=== PATIENT | male | born 1955 | race Caucasian/White ===

== ENCOUNTER 2016-12-22 07:02 | Inpatient (IN) | payer OTHER ==
[2016-12-22 07:36] VITALS: BMI 28.8
--- NOTE | 2016-12-22 08:30 | PDOC ---
History of Present Illness - General History Source: Patient, Old Records Exam Limitations: No Limitations <Morelos,Shana - Last Filed: 12/22/16 08:39> - History of Present Illness Initial Comments: 12/22/16 08:37 - General History Source: Patient, Old Records Exam Limitations: No Limitations - History of Present Illness Initial Comments: 12/22/16 08:35 The patient is a 61-year-old man, accompanied by family, with a past medical history of hypertension, atrial fibrillation (On Xarelto), congestive heart failure, peripheral arterial disease R>L, venous stasis ulcers in his bilateral lower extremities and opioid dependence (on Methadone) who presents to the emergency department for further evaluation of leg pain/wound. Patient states that he was at [facility], approximately 3 weeks ago, for upper respiratory symptoms and was diagnosed with Pneumonia and congestive heart failure. He states that as he left the hospital, he felt symptoms of bilateral leg pain (left greater than right) but ignored it. Over the pats 3 weeks, his has noted that his leg pain has gradually worsen, as he notes that his legs are red and might be infected. His skin has been breaking down on his legs, and he has been developing more venous stasis ulcers which seem to be getting infected. Patient expresses concern for his legs due to his history of peripheral arterial disease and venous stasis ulcers. He denies any associated symptoms of fever and chills. He reports that his respiratory symptoms have cleared up and is currently asymptomatic. He denies chest pain, lightheadedness, dizziness, shortness of breath, neck pain , headache; He denies abdominal pain, nausea, vomiting, diarrhea. He denies fevers or chills. No history of diabetes mellitus. Off note: the patient expresses concern, as he has not had his methadone yet this morning. Allergies: Penicillin Past Surgical History: Cataract surgery (left eye) Social History: Current everyday cigarette smoker. No ETOH use. 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 Trisha Rodas Remainder of the review of systems is negative. <Shana Morelos - Last Filed: 12/22/16 08:36> <Karlene Trimble - Last Filed: 12/23/16 15:40> - General Chief Complaint: Wound Infection Stated Complaint: WOUND INFECTION/LEG Time Seen by Provider: 12/22/16 08:01 Past History <Shana Morelos - Last Filed: 12/22/16 08:39> - Past Medical History Cardiac Disorders: Yes (CHF) COPD: Yes HTN: Yes - Psycho/Social/Smoking Cessation Hx Suicidal Ideation: No Smoking History: Current every day smoker Number of Cigarettes Smoked Daily: 10 Information on smoking cessation initiated: No <Karlene Trimble - Last Filed: 12/23/16 15:40> - Past Medical History Allergies/Adverse Reactions: Allergies Allergy/AdvReac Type Severity Reaction Status Date / Time Penicillins Allergy Verified 12/22/16 07:27 Home Medications: Ambulatory Orders Aspirin [ASA -] 81 mg PO DAILY 12/22/16 Digoxin [Lanoxin -] 0.25 mg PO DAILY 12/22/16 Diltiazem Cd [Cardizem Cd -] 180 mg PO BID 12/22/16 Furosemide [Lasix -] 40 mg PO DAILY 12/22/16 Methadone [Dolophine -] 70 mg PO DAILY 12/22/16 Metoprolol Tartrate [Lopressor -] 50 mg PO BID 12/22/16 Rivaroxaban [Xarelto -] 20 mg PO DAILY 12/22/16 Review of Systems - Review of Systems Able to Perform ROS?: Yes Comments:: 12/22/16 08:35 12 point review of systems is as per history of present illness and otherwise negative. <Shana Morelos - Last Filed: 12/22/16 08:39> *Physical Exam - Vital Signs Last Vital Signs Temp Pulse Resp BP Pulse Ox 98.3 F 94 H 18 138/77 95 12/22/16 07:24 12/22/16 07:24 12/22/16 07:24 12/22/16 07:24 12/22/16 07:24 <Shana Morelos - Last Filed: 12/22/16 08:39> - Vital Signs Last Vital Signs Temp Pulse Resp BP Pulse Ox 98.3 F 94 H 18 138/77 95 12/22/16 07:24 12/22/16 07:24 12/22/16 07:24 12/22/16 07:24 12/22/16 07:24 - Physical Exam Comments: 12/22/16 08:49 Physical exam Last Vital Signs Temp Pulse Resp BP Pulse Ox 98.3 F 94 H 18 138/77 95 12/22/16 07:24 12/22/16 07:24 12/22/16 07:24 12/22/16 07:24 12/22/16 07:24 GENERAL: The patient is awake, alert, and fully oriented, and in no apparent distress. HEAD: Normal with no signs of trauma. NECK: Normal range of motion, supple LUNGS: Bibasilar rales, occasional rhonchi HEART: Irregularly irregular rate and rhythm, 110, normal S1 and S2 without murmur, rub or gallop. ABDOMEN: Soft, nontender, EXTREMITIES: There is chronic venous stasis changes on the lower extremities bilaterally On the right lower extremity, there are some ulcers in breakdown, with a small amount of secondary infection There is some drainage There is a barely palpable right dorsalis pedis pulse On the left lower extremity-there are multiple ulcers in breakdown, with secondary infection, and cellulitis up to the knee There are multiple sites of drainage The dorsalis pedis pulse diminished but somewhat palpable on the left NEUROLOGICAL: Cranial nerves II through XII grossly intact. Normal speech, normal gait. PSYCH: Normal mood, normal affect. SKIN: Warm, Dry, <Karlene Trimble - Last Filed: 12/23/16 15:40> ED Treatment Course - LABORATORY CBC & Chemistry Diagram: 12/23/16 05:40 12/23/16 05:40 - RADIOLOGY Radiology Studies Ordered: Category Date Time Status CHEST X-RAY PORTABLE* [RAD] Stat Radiology 12/22/16 08:29 Ordered <Karlene Trimble - Last Filed: 12/23/16 15:40> Medical Decision Making - Medical Decision Making 12/22/16 08:51 Chronic venous insufficiency, peripheral arterial disease, multiple ulcers in breakdown, cellulitis and secondary infection 12/22/16 09:45 Laboratory Results - last 24 hr 12/22/16 12/22/16 12/22/16 08:06 08:06 09:00 WBC 13.5 H RBC 5.01 Hgb 14.7 Hct 45.6 MCV 91.0 MCHC 32.3 RDW 15.9 D Plt Count 273 D MPV 8.6 D INR 1.17 H PTT (Actin FS) 28.5 Sodium 140 Potassium 4.3 Chloride 101 Carbon Dioxide 27 Anion Gap 12 BUN 12 Creatinine 0.7 Creat Clearance w eGFR > 60 Random Glucose 200 H D Calcium 9.5 Total Bilirubin 0.3 AST 17 D ALT 22 Alkaline Phosphatase 139 H B-Natriuretic Peptide 2382.66 H Total Protein 6.9 Albumin 3.1 L D Lactic acid 2.9 EKG Atrial fibrillation with a ventricular response rate 150 (was 90 to 110 when came to ED) There is diffuse anterolateral and inferior inverted T waves and ischemia Patient is pain-free at this time Patient took his diltiazem when he arrived in the emergency department Patient was placed on a court recording monitor Heart rate is now 110 on the monitor, and patient is asymptomatic We'll recheck EKG 12/22/16 10:13 12/22/16 10:45 Heart rate 63 after diltiazem Awaiting repeat EKG 12/22/16 10:48 Chest f-[id number] markings no definite infiltrate 12/22/16 10:54 Atrial fibrillation with a ventricular response of 75 There is again infero-and anterolateral T-wave abnormalities The only old EKG available for comparison was 200812/22/16 10:59 Patient given vancomycin IV initially Lactic acid 2.9 Patient hydrated and will need repeat lactic acid Case and all results discussed with hospitalist-will admit to telemetry 12/22/16 11:36 Would like to give Zosyn, but patient is ALLERGIC to penicillin Would hold off gram-negative coverage until patient is seen by ID-ID consult placed by hospitalist <Karlene Trimble - Last Filed: 12/23/16 15:40> *DC/Admit/Observation/Transfer - Attestations Scribe Attestion: 12/22/16 08:35 Documentation prepared by Shana Morelos, acting as bio medical technician for Karlene Trimble MD. <Shana Morelos - Last Filed: 12/22/16 08:39> - Discharge Dispostion Admit: Yes <Karlene Trimble - Last Filed: 12/23/16 15:40> Diagnosis at time of Disposition: Atrial fibrillation with rapid ventricular response, Skin breakdown Cellulitis Qualifiers: Site of cellulitis of extremity: lower extremity Laterality: unspecified laterality - Referrals
[2016-12-22] MEDS ORDERED: VANCOMYCIN 1,250 MG in DEXTROSE 5%-WATER - 250 ML IVPB ONE (08:47)
[2016-12-22] MEDS ORDERED: METHADONE HCL 10 MG TABLET PO ONE (08:48)
[2016-12-22] MEDS ORDERED: METHADONE HCL 40 MG DISPERSABLE TABLET ONE (08:51)
[2016-12-22] MEDS ORDERED: METHADONE HCL 10 MG TABLET ONE (08:51)
[2016-12-22 08:54] LABS: MCH 29.4 pg (25.7-33.7); MCHC 32.3 g/dl (32.0-35.9); MEAN PLT VOLUME 8.6 fl (7.5-11.1); PLATELET COUNT 273 K/MM3 (134-434); RDW 15.9 % (11.9-15.9); WHITE BLOOD COUNT 13.5 K/mm3 (4.0-10.0)
[2016-12-22 09:20] LABS: ALBUMIN 3.1 g/dl (3.4-5.0); ANION GAP 12 (8-16); BILIRUBIN,TOTAL 0.3 mg/dL (0.2-1.0); CALCIUM 9.5 mg/dL (8.5-10.1); CO2 27 mmol/L (21-32); COCKROFT - GAULT 135.08; CREATININE 0.7 mg/dL (0.7-1.3); GLUCOSE,RANDOM 200 mg/dL (74-106); SGOT/AST 17 U/L (15-37); SGPT/ALT 22 U/L (12-78); TOT PROT 6.9 g/dl (6.4-8.2)
[2016-12-22 09:22] LABS: ALK PHOS 139 U/L (45-117)
[2016-12-22 09:22] LABS: INR 1.17 (0.82-1.09); PROTHROMBIN TIME (PATIENT) 12.9 SEC (9.98-11.88)
[2016-12-22 09:25] LABS: ACTIVATED PTT 28.5 SECONDS (26.9-34.4)
[2016-12-22] MEDS ORDERED: SODIUM CHLORIDE 1,000 ML IV STA (10:15)
[2016-12-22] MEDS ORDERED: dilTIAZem HCL 50 MG/10 ML - 10 ML VIAL IVPUSH ONE (10:22)
[2016-12-22] MEDS ORDERED: dilTIAZem HCL 125 MG/25 ML - 25 ML VIAL ONE (10:23)
--- NOTE | 2016-12-22 11:24 | HP ---
Admitting History and Physical - Primary Care Physician PCP: Trisha Rodas - Admission Chief Complaint: Wheeping lower legs wounds History of Present Illness: HPI: This is a 61 year old male with Afib (on xaralto) CHF, HTN, PAD R>L and venous ulcerations to b/l lower ext, opioid dependence (on methadone for 5 years for heroin). Recently admitted to [facility] 1 month ago with shortness of breath and cough. He noted his legs were swollen when he entered [facility]. Diagnosed with pneumonia, he was found to have heart failure and A fib and developed lower extremity wounds there. When he left [facility] his lower leg wounds were present , but not as bad and was sent home with a cream and some lose gauze packets. He was told at [facility] he has an R femoral artery obstruction, it is unclear if there was any follow up. Over the past 2.5 weeks following discharge he noted his legs worsening to the point where it hurt to walk. He did not come to the hospital because he figured his legs would get better with the cream. When he went to methadone clinic yesterday the physician strongly advised him to come to the hospital. When he arrived he was in A fib with RVR, he had not taken his morning medication (Cardizem 180 BID) yet. He was asymptomatic. ER Course: - Cardizem 10mg IVP given - Vanco x1 Laboratory Tests 12/22/16 12/22/16 12/22/16 08:06 08:06 09:00 INR Lactic Acid 2.924 H* Creatine Kinase 59 Troponin I < 0.02 B-Natriuretic Peptide 2382.66 H Digoxin 0.2821 L 12/22/16 12/22/16 12/22/16 09:00 11:40 11:40 INR 1.17 H Lactic Acid 1.944 Creatine Kinase 45 Troponin I 0.02 B-Natriuretic Peptide Digoxin History Source: Patient Limitations to Obtaining History: No Limitations - Past Medical History Cardiovascular: Yes: AFIB, CHF, HTN Psych: Yes: Depression - Past Surgical History Additional Past Surgical History: R arm/hand ortho surgery - Smoking History Smoking history: Current every day smoker Aproximately how many cigarettes per day: 10 - Alcohol/Substance Use History of Substance Use: reports: Heroin - Social History Usual Living Arrangement: Yes: With Spouse ADL: Independent History of Recent Travel: No Home Medications - Allergies Allergies/Adverse Reactions: Allergies Allergy/AdvReac Type Severity Reaction Status Date / Time Penicillins Allergy Verified 12/22/16 07:27 - Home Medications Home Medications: Ambulatory Orders Aspirin [ASA -] 81 mg PO DAILY 12/22/16 Digoxin [Lanoxin -] 0.25 mg PO DAILY 12/22/16 Diltiazem Cd [Cardizem Cd -] 180 mg PO BID 12/22/16 Furosemide [Lasix -] 40 mg PO DAILY 12/22/16 Methadone [Dolophine -] 70 mg PO DAILY 12/22/16 Metoprolol Tartrate [Lopressor -] 50 mg PO BID 12/22/16 Rivaroxaban [Xarelto -] 20 mg PO DAILY 12/22/16 Review of Systems - Review of Systems Constitutional: reports: No Symptoms Eyes: reports: No Symptoms HENT: reports: No Symptoms Neck: reports: No Symptoms Cardiovascular: reports: No Symptoms Respiratory: reports: No Symptoms Gastrointestinal: reports: No Symptoms Genitourinary: reports: No Symptoms Musculoskeletal: reports: No Symptoms Integumentary: reports: Erythema, Wound (bi lateral lower ext, wheeping, red, tender) Neurological: reports: No Symptoms Endocrine: reports: No Symptoms Hematology/Lymphatic: reports: No Symptoms Psychiatric: reports: No Symptoms Physical Examination Vital Signs: Vital Signs Temperature 98.3 F 12/22/16 07:24 Pulse Rate 87 12/22/16 11:12 Respiratory Rate 18 12/22/16 11:12 Blood Pressure 108/84 12/22/16 11:12 O2 Sat by Pulse Oximetry (%) 97 12/22/16 11:12 Constitutional: Yes: Calm Eyes: Yes: Conjunctiva Clear HENT: Yes: Thrush, Other (poor dentition) Neck: Yes: Supple Cardiovascular: Yes: Pulse Irregular, S1, S2 Respiratory: Yes: Regular, CTA Bilaterally Gastrointestinal: Yes: Normal Bowel Sounds, Soft Renal/: Yes: WNL Edema: Yes Edema: LLE: 2+, RLE: 2+ Peripheral Pulses WNL: No Integumentary: Yes: Venous Stasis Changes Wound/Incision: Yes: Draining, Reddened, Other Neurological: Yes: Alert, Oriented, Cran Nerves II-XII Intact ...Motor Strength: WNL Psychiatric: Yes: Alert, Oriented Imaging - Results Chest X-ray: Report Reviewed (no acute pathology), Image Reviewed EKG: Report Reviewed Problem List - Problems (1) Atrial fibrillation with rapid ventricular response Code(s): I48.91 - UNSPECIFIED ATRIAL FIBRILLATION (2) Cellulitis Code(s): L03.90 - CELLULITIS, UNSPECIFIED (3) Skin breakdown Code(s): L90.9 - ATROPHIC DISORDER OF SKIN, UNSPECIFIED (4) CHF (congestive heart failure) Code(s): I50.9 - HEART FAILURE, UNSPECIFIED (5) PAD (peripheral artery disease) Code(s): I73.9 - PERIPHERAL VASCULAR DISEASE, UNSPECIFIED (6) Methadone dependence Code(s): F11.20 - OPIOID DEPENDENCE, UNCOMPLICATED (7) Substance abuse Code(s): F19.10 - OTHER PSYCHOACTIVE SUBSTANCE ABUSE, UNCOMPLICATED Assessment/Plan Assessment: 61 year old male admitted with bilateral wound cellulitis with weeping and A fib with RVR Plan: 1. A Fib with RVR - Now controlled - Cardizem 180 BID - Metoprool 50 BID - Dig 0.25 daily, subtherapeutic - ASA daily - Xaralto 20 qday - Telemetry monitoring - Cardiology to see pt 2. CHF - Elevated BNP - ECHO ordered - Lasix 40mg BID - Check A1c - Send lipid panel 3. Bilateral LE cellulitis/venous stasis wounds - Vanco/ Zosyn x1 - BC pending - Silvadene and antonio bandage daily - ID consulted for abx approval 4. PAD - CTA ordered eval for flow, no palpable pulses - Vascular seeing 5. Lactic acidemia - Resolved with fluids - Follow blood cultures - UA negative 6. Methadone dependance - Methadone 70mg daily Visit type - Emergency Visit Emergency Visit: Yes ED Registration Date: 12/22/16 Care time: The patient presented to the Emergency Department on the above date and was hospitalized for further evaluation of their emergent condition. - New Patient This patient is new to me today: Yes Date on this admission: 12/22/16 - Critical Care Critical Care patient: No
[2016-12-22] MEDS ORDERED: ASPIRIN COATED 81 MG TABLET.EC PO ONE (11:57)
[2016-12-22] MEDS ORDERED: ASPIRIN 81 MG CHEWABLE TABLETS ONE (11:58)
[2016-12-22 12:14] LABS: TROPONIN I < 0.02 ng/ml (0.00-0.05)
[2016-12-22 12:18] LABS: TROPONIN I 0.02 ng/ml (0.00-0.05)
[2016-12-22 13:03] LABS: URINE APPEARANCE SLCLOUDY; URINE BILIRUBIN NEGATIVE (NEGATIVE); URINE BLOOD NEGATIVE (NEGATIVE); URINE COLOR YELLOW; URINE GLUCOSE (UA) NEGATIVE (NEGATIVE); URINE KETONE NEGATIVE (NEGATIVE); URINE LEUK ESTERASE NEGATIVE (NEGATIVE); URINE NITRITE NEGATIVE (NEGATIVE); URINE PROTEIN NEGATIVE (NEGATIVE); URINE UROBILINOGEN NEGATIVE E.U./dl (0.2-1.0)
--- NOTE | 2016-12-22 13:09 | CONSULT ---
Consult - Past Medical History Cardio/Vascular: Yes: AFIB, CHF Psych: Yes: Depression - Alcohol/Substance Use History of Substance Use: reports: Heroin - Smoking History Smoking history: Current every day smoker Aproximately how many cigarettes per day: 10 - Social History ADL: Independent History of Recent Travel: No Home Medications - Allergies Allergies/Adverse Reactions: Allergies Allergy/AdvReac Type Severity Reaction Status Date / Time Penicillins Allergy Verified 12/22/16 07:27 - Home Medications Home Medications: Ambulatory Orders Aspirin [ASA -] 81 mg PO DAILY 12/22/16 Digoxin [Lanoxin -] 0.25 mg PO DAILY 12/22/16 Diltiazem Cd [Cardizem Cd -] 180 mg PO BID 12/22/16 Furosemide [Lasix -] 40 mg PO DAILY 12/22/16 Methadone [Dolophine -] 70 mg PO DAILY 12/22/16 Metoprolol Tartrate [Lopressor -] 50 mg PO BID 12/22/16 Rivaroxaban [Xarelto -] 20 mg PO DAILY 12/22/16 Physical Exam Vital Signs: Vital Signs Temperature 99.2 F 12/22/16 11:30 Pulse Rate 87 12/22/16 11:12 Respiratory Rate 18 12/22/16 11:12 Blood Pressure 108/84 12/22/16 11:12 O2 Sat by Pulse Oximetry (%) 97 12/22/16 11:12 Assessment/Plan Vascular Surgery The patient is a 61-year-old man, accompanied by family, with a past medical history of hypertension, atrial fibrillation (On Xarelto), congestive heart failure, peripheral arterial disease R>L, venous stasis ulcers in his bilateral lower extremities and opioid dependence (on Methadone) who presents to the emergency department for further evaluation of leg pain/wound. Patient states that he was at [facility], approximately 3 weeks ago, for upper respiratory symptoms and was diagnosed with Pneumonia and congestive heart failure. He states that as he left the hospital, he felt symptoms of bilateral leg pain (left greater than right) but ignored it. Over the pats 3 weeks, his has noted that his leg pain has gradually worsen, as he notes that his legs are red and might be infected. His skin has been breaking down on his legs, and he has been developing more venous stasis ulcers which seem to be getting infected. Patient expresses concern for his legs due to his history of peripheral arterial disease and venous stasis ulcers. He denies any associated symptoms of fever and chills. He reports that his respiratory symptoms have cleared up and is currently asymptomatic. He denies chest pain, lightheadedness, dizziness, shortness of breath, neck pain , headache; He denies abdominal pain, nausea, vomiting, diarrhea. He denies fevers or chills. No history of diabetes mellitus. Off note: the patient expresses concern, as he has not had his methadone yet this morning. Allergies: Penicillin Past Surgical History: Cataract surgery (left eye) Social History: Current everyday cigarette smoker. No ETOH use. 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 Trisha Rodas PE Head - NC/AT lung - CTA Heart - RRR abd - soft,nt,nd ext - Bilateral lower weeping with ulcers. No palpable pulses. A/P Bilateral lower ext ulcers. Pt was told at [facility] that he has vascular disease. Pt has no palpable pulses with ulcers. Will order CTA to check runoff. Cr is normal. Ronnie Cunningham DO
[2016-12-22] MEDS ORDERED: PIPERACILLIN/TAZOB 3.375 GM/50 ML PRE-DOCKED IVPB ONE (14:20)
[2016-12-22] MEDS ORDERED: PIPERACILLIN/TAZOB 3.375 GM 50 ML IVPB ONE (15:06)
[2016-12-22] MEDS: NYSTATIN 500,000 UNITS/5 ML SUSPENSION PO SCH ×2 (18:45→23:25)
--- NOTE | 2016-12-22 20:43 | CONSULT ---
Consult Consult Specialty:: infectious diseases Reason for Consultation:: cellulitits of the legs - History of Present Illness History of Present Illness: This is a 61 year old male with Afib (on xaralto) CHF, HTN, PAD R>L and venous ulcerations to b/l lower ext, opioid dependence patient was recently treated with to [facility] 1 month ago with shortness of breath and cough.At that time patient had swollen and weeping legs. Diagnosed with pneumonia, he was found to have heart failure and A fib and developed lower extremity wounds there. When he left [facility] his lower leg wounds were present, was sent home . He was told at [facility] he has an R femoral artery obstruction,. Over the past 2.5 weeks following discharge he noted his legs worsening to the point where it hurt to walk. patient had gone to [facility] and was told to get admitted to the [facility] for further management and iv abx patient got admitted and to the hospital - History Source History Provided By: Patient, Medical Record Limitations to Obtaining History: Poor Historian - Past Medical History Cardio/Vascular: Yes: AFIB, CHF, HTN Psych: Yes: Depression - Alcohol/Substance Use Hx Alcohol Use: No History of Substance Use: reports: Heroin - Smoking History Smoking history: Current every day smoker Aproximately how many cigarettes per day: 10 - Social History ADL: Independent History of Recent Travel: No Home Medications - Allergies Allergies/Adverse Reactions: Allergies Allergy/AdvReac Type Severity Reaction Status Date / Time Penicillins Allergy Verified 12/22/16 07:27 - Home Medications Home Medications: Ambulatory Orders Aspirin [ASA -] 81 mg PO DAILY 12/22/16 Digoxin [Lanoxin -] 0.25 mg PO DAILY 12/22/16 Diltiazem Cd [Cardizem Cd -] 180 mg PO BID 12/22/16 Furosemide [Lasix -] 40 mg PO DAILY 12/22/16 Methadone [Dolophine -] 70 mg PO DAILY 12/22/16 Metoprolol Tartrate [Lopressor -] 50 mg PO BID 12/22/16 Rivaroxaban [Xarelto -] 20 mg PO DAILY 12/22/16 Review of Systems - Review of Systems Constitutional: reports: Weakness, Other Eyes: reports: No Symptoms HENT: reports: No Symptoms Neck: reports: No Symptoms Cardiovascular: reports: No Symptoms Respiratory: reports: No Symptoms Gastrointestinal: reports: No Symptoms Genitourinary: reports: No Symptoms Musculoskeletal: reports: Muscle Pain, Muscle Cramps, Other Integumentary: reports: Change in Color, Erythema, Lesions, Wound, Other ( weeping) Neurological: reports: Confusion, Other Endocrine: reports: No Symptoms Hematology/Lymphatic: reports: No Symptoms Psychiatric: reports: No Symptoms Physical Exam Vital Signs: Vital Signs Temperature 97.8 F 12/22/16 17:00 Pulse Rate 67 12/22/16 17:00 Respiratory Rate 20 12/22/16 20:31 Blood Pressure 129/75 12/22/16 17:00 O2 Sat by Pulse Oximetry (%) 98 12/22/16 20:31 Constitutional: Yes: No Distress, Calm Eyes: Yes: Conjunctiva Clear HENT: Yes: Atraumatic, Normocephalic Neck: Yes: Supple, Trachea Midline Cardiovascular: Yes: Pulse Irregular, Other Respiratory: Yes: Regular, CTA Bilaterally Gastrointestinal: Yes: Normal Bowel Sounds, Soft Musculoskeletal: Yes: Other Extremities: Yes: Erythema, Other Edema: LLE: 2+, RLE: 2+ Integumentary: Yes: Erythema (bilateral legs,weeping open wounds draianng) Wound/Incision: Yes: Draining, Reddened Neurological: Yes: Alert, Other Psychiatric: Yes: Alert Imaging - Results Chest X-ray: Report Reviewed, Image Reviewed Assessment/Plan - Problems (1) Atrial fibrillation with rapid ventricular response Code(s): I48.91 - UNSPECIFIED ATRIAL FIBRILLATION (2) Cellulitis Code(s): L03.90 - CELLULITIS, UNSPECIFIED Qualifiers: Site of cellulitis of extremity: lower extremity Laterality: unspecified laterality (3) Methadone dependence Code(s): F11.20 - OPIOID DEPENDENCE, UNCOMPLICATED (4) PAD (peripheral artery disease) Code(s): I73.9 - PERIPHERAL VASCULAR DISEASE, UNSPECIFIED (5) Substance abuse Code(s): F19.10 - OTHER PSYCHOACTIVE SUBSTANCE ABUSE, UNCOMPLICATED (6) Diastolic dysfunction Code(s): I51.9 - HEART DISEASE, UNSPECIFIED wound infection plan will start patient on abx vascular evaluation rest continue current mgmt wound care
[2016-12-22] MEDS: SILVER SULFADIAZINE 1% TOP CREAM 50 GM JAR TP SCH (21:05)
[2016-12-22] MEDS: ERTAPENEM SODIUM 1 GM in SODIUM CHLORIDE 50 ML IVPB SCH (23:25)
[2016-12-22] MEDS: METOPROLOL TARTRATE 50 MG TABLET (FP) PO SCH (23:25)
[2016-12-23] MEDS ORDERED: METHADONE HCL 10 MG TABLET ONE (05:40)
[2016-12-23] MEDS ORDERED: METHADONE HCL 40 MG DISPERSABLE TABLET ONE (05:40)
[2016-12-23] MEDS: METHADONE 40 MG, METHADONE 30 MG PO SCH (05:48)
[2016-12-23] MEDS: NYSTATIN 500,000 UNITS/5 ML SUSPENSION PO SCH ×3 (05:48→17:11)
[2016-12-23 08:14] LABS: BASOPHIL 0.4 % (0-2.0); EOSINOPHIL 0.5 % (0-4.5); MCH 29.5 pg (25.7-33.7); MCHC 32.2 g/dl (32.0-35.9); MEAN CELL VOLUME 91.5 fl (80-96); MEAN PLT VOLUME 8.9 fl (7.5-11.1); NEUTROPHILS 77.3 % (42.8-82.8); PLATELET COUNT 270 K/MM3 (134-434); RDW 15.9 % (11.9-15.9); WHITE BLOOD COUNT 13.2 K/mm3 (4.0-10.0)
--- NOTE | 2016-12-23 08:16 | EKG ---
Test Reason : Blood Pressure : / mmHG Vent. Rate : 075 BPM Atrial Rate : 300 BPM P-R Int : 000 ms QRS Dur : 074 ms QT Int : 378 ms P-R-T Axes : 000 061 216 degrees QTc Int : 422 ms ATRIAL FIBRILLATION ABNORMAL ECG WHEN COMPARED WITH ECG OF 22-DEC-2016 09:09, VENT. RATE HAS DECREASED BY 76 BPM Confirmed by CARON SIDDIQI MD ([id number]) on 12/23/2016 8:16:19 AM Referred By: Confirmed By:CARON SIDDIQI MD
--- NOTE | 2016-12-23 08:18 | EKG ---
Test Reason : Blood Pressure : / mmHG Vent. Rate : 151 BPM Atrial Rate : 170 BPM P-R Int : 144 ms QRS Dur : 070 ms QT Int : 234 ms P-R-T Axes : 000 066 215 degrees QTc Int : 370 ms PROBABLE ATRIAL FIBRILLATION WITH RAPID VENTRICULAR RESPONSE ABNORMAL ECG WHEN COMPARED WITH ECG OF 23-APR-2009 08:55, VENT. RATE HAS INCREASED BY 87 BPM ATRIAL FIBRILLATION HAS REPLACED SINUS RHYTHM Confirmed by NEERU RAIN, CARON ([id number]) on 12/23/2016 8:17:53 AM Referred By: Confirmed By:CARON SIDDIQI MD
[2016-12-23 08:59] LABS: ALK PHOS 114 U/L (45-117); ANION GAP 11 (8-16); BILIRUBIN,TOTAL 0.4 mg/dL (0.2-1.0); CALCIUM 9.4 mg/dL (8.5-10.1); CHOLESTEROL 145 mg/dL (50-200); CO2 28 mmol/L (21-32); COCKROFT - GAULT 161.85; CREATININE 0.6 mg/dL (0.7-1.3); GLUCOSE,RANDOM 113 mg/dL (74-106); LDL CHOLESTEROL (ONLY SJRH) 90 mg/dL (5-100); SGOT/AST 30 U/L (15-37); SGPT/ALT 31 U/L (12-78); TOT PROT 6.4 g/dl (6.4-8.2)
[2016-12-23] MEDS: ERTAPENEM SODIUM 1 GM in SODIUM CHLORIDE 50 ML IVPB SCH (09:01)
[2016-12-23] MEDS: VANCOMYCIN 1,250 MG in DEXTROSE 5%-WATER - 250 ML IVPB SCH (09:02)
[2016-12-23] MEDS: METOPROLOL TARTRATE 50 MG TABLET (FP) PO SCH ×2 (09:02→21:19)
[2016-12-23] MEDS: RIVAROXABAN 20 MG TABLET PO SCH (09:02)
[2016-12-23] MEDS: SILVER SULFADIAZINE 1% TOP CREAM 50 GM JAR TP SCH (09:03)
[2016-12-23] MEDS ORDERED: METHADONE HCL 10 MG TABLET PO SCH (10:00)
[2016-12-23] MEDS ORDERED: ASPIRIN 81 MG CHEWABLE TABLETS PO SCH (10:00)
[2016-12-23] MEDS ORDERED: DIGOXIN 0.25 MG TABLET (FP) PO SCH (10:00)
--- NOTE | 2016-12-23 10:08 | CON.CARD ---
Consult Consult Specialty:: Cardiology Referred by:: Hospitalist Medicine Reason for Consultation:: Afib - History of Present Illness Chief Complaint: Weeping leg wounds History of Present Illness: PMD: Trisha Rodas This is a 61 year old male with Afib (on xaralto) CHF, HTN, PAD R>L and venous ulcerations to b/l lower ext, opioid dependence (on methadone for 5 years for heroin). Recently admitted to [facility] 1 month ago with shortness of breath, lower extremity swelling and cough treated for pneumonia, heart failure and A fib and developed lower extremity wounds there. After discharge, he noted his legs swelling worsening to the point where it hurt to walk. When he went to methadone clinic yesterday the physician strongly advised him to come to the hospital. When he arrived he was in A fib with RVR, he had not taken his morning medication (Cardizem 180 BID) yet. He was asymptomatic and denies chest pain, dyspnea, near or true syncope, orthopnea, PND, rate-controlled with Cardizem and started on abx for presumptive overlyng cellulitis. Spontaneous cardioversion with rate-control. - History Source History Provided By: Patient Limitations to Obtaining History: Clinical Condition - Past Medical History Cardio/Vascular: Yes: AFIB, CHF, HTN Psych: Yes: Depression - Alcohol/Substance Use Hx Alcohol Use: No History of Substance Use: reports: Heroin - Smoking History Smoking history: Current every day smoker Aproximately how many cigarettes per day: 10 - Social History ADL: Independent History of Recent Travel: No Home Medications - Allergies Allergies/Adverse Reactions: Allergies Allergy/AdvReac Type Severity Reaction Status Date / Time Penicillins Allergy Verified 12/22/16 07:27 - Home Medications Home Medications: Ambulatory Orders Aspirin [ASA -] 81 mg PO DAILY 12/22/16 Digoxin [Lanoxin -] 0.25 mg PO DAILY 12/22/16 Diltiazem Cd [Cardizem Cd -] 180 mg PO BID 12/22/16 Furosemide [Lasix -] 40 mg PO DAILY 12/22/16 Methadone [Dolophine -] 70 mg PO DAILY 12/22/16 Metoprolol Tartrate [Lopressor -] 50 mg PO BID 12/22/16 Rivaroxaban [Xarelto -] 20 mg PO DAILY 12/22/16 Review of Systems - Review of Systems Cardiovascular: reports: Edema Vital Signs: Vital Signs Temperature 98.2 F 12/23/16 05:00 Pulse Rate 70 12/23/16 09:02 Respiratory Rate 16 12/23/16 05:00 Blood Pressure 118/66 12/23/16 05:00 O2 Sat by Pulse Oximetry (%) 98 12/22/16 20:31 Constitutional: Yes: No Distress, Calm Neck: Yes: Supple Respiratory: Yes: Regular, Diminished Gastrointestinal: Yes: Normal Bowel Sounds Cardiovascular: Yes: Regular Rate and Rhythm, Bradycardia JVD: No Carotid Bruit: No Heart Sounds: Yes: S1, S2 Murmur: Yes: Systolic Murmur, Grade 1 Edema: Yes Edema: LLE: 2+, RLE: 2+ - Other Data Labs, Other Data: CBC, BMP 12/23/16 05:40 12/23/16 05:40 INR, PTT INR 1.17 (0.82-1.09) H 12/22/16 09:00 Troponin, BNP 12/22/16 12/22/16 11:40 11:40 Troponin I Cancelled 0.02 Troponin, BNP 12/22/16 12/22/16 11:40 11:40 Troponin I Cancelled 0.02 EKG: Rapid afib 151 with rate-related changes -> 75 Tele: PAF->SB 40-50s Imaging - Results Chest X-ray: Report Reviewed (NAD) Cat Scan: Report Reviewed (CTA: 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 with reconsitituion at [employer] via epigastric, mod stenosis SFA bilaterally with marked impairment of infrapopliteal flow bilaterally) Problem List - Problems (1) Atrial fibrillation with rapid ventricular response Code(s): I48.91 - UNSPECIFIED ATRIAL FIBRILLATION (2) Cellulitis Code(s): L03.90 - CELLULITIS, UNSPECIFIED Qualifiers: Site of cellulitis of extremity: lower extremity Laterality: unspecified laterality (3) Methadone dependence Code(s): F11.20 - OPIOID DEPENDENCE, UNCOMPLICATED (4) PAD (peripheral artery disease) Code(s): I73.9 - PERIPHERAL VASCULAR DISEASE, UNSPECIFIED (5) Substance abuse Code(s): F19.10 - OTHER PSYCHOACTIVE SUBSTANCE ABUSE, UNCOMPLICATED (6) Diastolic dysfunction Code(s): I51.9 - HEART DISEASE, UNSPECIFIED Assessment/Plan A/P 1. Paroxysmal atrial fibrillation with RVR -> sinus bradycardia on NOAC 2. PAD with bilateral lower ext ulcers and overlying cellulitis. 3. Diastolic dysfunction 4. Opiate dependence 5. Non-compliance P:1. D/c Cardizem CD 180 bid and digoxin 0.25 qd, Continue Xarelto 20 qPM, Lopressor 50 bid, d/c ASA on concomitant NOAC 2. Continue Lasix 40 qd with monitor diuretic response, renal fxn and electrolytes 3. F/u echo to assess LV and valve fxn, TSH 4. Empiric abx course per C&S, wound care 5. Emphasized importance of compliance, thank you for consultative opportunity
--- NOTE | 2016-12-23 10:38 | PN ---
Progress Note (short form) - Note Progress Note: Vascular Surgery CTA reviewed. Pt has distal aorta occlusion, with common and external iliac artery occlusion. Pt will need Aorto-bifemoral bypass to restore circulation. Cardiology eval for clearance measures. Will cont to follow Ronnie Cunningham DO
--- NOTE | 2016-12-23 12:44 | PN ---
Progress Note, Physician History of Present Illness: says he feels good legs actually looking better dressing started - Current Medication List Current Medications: Active Medications Ertapenem 1 gm/ Sodium (Chloride) 50 mls @ 50 mls/hr IVPB DAILY [facility] PRN Reason: Protocol Last Admin: 12/23/16 09:01 Dose: 50 mls/hr Vancomycin HCl 1,250 mg/ (Dextrose) 250 mls @ 250 mls/hr IVPB DAILY [facility] PRN Reason: Protocol Last Admin: 12/23/16 09:02 Dose: 250 mls/hr Methadone HCl 40 mg/ Methadone (HCl 30 mg) 70 mg PO DAILY@0600 [facility] Last Admin: 12/23/16 05:48 Dose: 70 mg Metoprolol Tartrate (Lopressor -) 50 mg PO BID [facility] Last Admin: 12/23/16 09:02 Dose: 50 mg Nystatin (Nystatin Oral Suspension -) 500,000 units PO Q6HPO [facility] Last Admin: 12/23/16 11:56 Dose: 500,000 units Rivaroxaban (Xarelto -) 20 mg PO DAILY [facility] Last Admin: 12/23/16 09:02 Dose: 20 mg Silver Sulfadiazine (Silvadene -) 1 applic TP DAILY [facility] Last Admin: 12/23/16 09:03 Dose: 1 applic - Objective Vital Signs: Vital Signs Temperature 98 F 12/23/16 09:00 Pulse Rate 70 12/23/16 09:02 Respiratory Rate 18 12/23/16 09:00 Blood Pressure 116/62 12/23/16 09:00 O2 Sat by Pulse Oximetry (%) 98 12/22/16 20:31 Constitutional: Yes: No Distress, Calm Cardiovascular: Yes: Pulse Irregular Respiratory: Yes: Regular, CTA Bilaterally Gastrointestinal: Yes: Normal Bowel Sounds, Soft Musculoskeletal: Yes: Other Extremities: Yes: Other Wound/Incision: Yes: Dressing Dry and Intact, Draining Neurological: Yes: Alert, Oriented Psychiatric: Yes: Alert, Oriented Labs: CBC, BMP 12/23/16 05:40 12/23/16 05:40 INR, PTT INR 1.17 (0.82-1.09) H 12/22/16 09:00 Assessment/Plan - Problems (1) Atrial fibrillation with rapid ventricular response Code(s): I48.91 - UNSPECIFIED ATRIAL FIBRILLATION (2) Cellulitis Code(s): L03.90 - CELLULITIS, UNSPECIFIED Qualifiers: Site of cellulitis of extremity: lower extremity Laterality: unspecified laterality (3) Methadone dependence Code(s): F11.20 - OPIOID DEPENDENCE, UNCOMPLICATED (4) PAD (peripheral artery disease) Code(s): I73.9 - PERIPHERAL VASCULAR DISEASE, UNSPECIFIED (5) Substance abuse Code(s): F19.10 - OTHER PSYCHOACTIVE SUBSTANCE ABUSE, UNCOMPLICATED (6) Diastolic dysfunction Code(s): I51.9 - HEART DISEASE, UNSPECIFIED wound infection plan continue abx await for final identification of the organism rest as per primary vascular on case
--- NOTE | 2016-12-23 18:05 | PN ---
Physical Exam: SUBJECTIVE: Patient seen and examined. He says he feels about the same, his legs still hurt. I have informed him about need for surgery to open his RLE obstruction. OBJECTIVE: Vital Signs Period Temp Pulse Resp BP Sys/Chatterjee Pulse Ox Last 24 Hr 97.8 F-98.6 F 54-74 16-20 102-128/44-79 98 PE Neuro: alert, awake, cn 2-12intact Pulm: CTAB CV: s1 s2 rrr Abd: s nt nd + bs Ext: b/l le erythema, open wounds anterior and posterior, dressing in tact Laboratory Results - last 24 hr 12/23/16 12/23/16 12/23/16 05:40 05:40 05:40 WBC 13.2 H RBC 4.51 Hgb 13.3 Hct 41.3 MCV 91.5 MCHC 32.2 RDW 15.9 Plt Count 270 MPV 8.9 Neutrophils % 77.3 Lymphocytes % 13.5 Monocytes % 8.3 Eosinophils % 0.5 Basophils % 0.4 Sodium 141 Potassium 4.6 Chloride 102 Carbon Dioxide 28 Anion Gap 11 BUN 12 Creatinine 0.6 L Creat Clearance w eGFR > 60 Random Glucose 113 H D Hemoglobin A1c % 8.6 H Calcium 9.4 Magnesium 2.0 Total Bilirubin 0.4 D AST 30 D ALT 31 D Alkaline Phosphatase 114 Total Protein 6.4 Albumin 3.0 L Triglycerides 87 Cholesterol 145 Total LDL Cholesterol 90 HDL Cholesterol 45 Current Medications Generic Name Dose Route Start Last Admin Trade Name Freq PRN Reason Stop Dose Admin Ertapenem 1 gm/ Sodium 50 mls @ 50 mls/hr 12/22/16 20:45 12/23/16 09:01 Chloride IVPB 50 mls/hr DAILY [facility] Administration Protocol Vancomycin HCl 1,250 mg/ 250 mls @ 250 mls/hr 12/23/16 10:00 12/23/16 09:02 Dextrose IVPB 250 mls/hr DAILY [facility] Administration Protocol Methadone HCl 40 mg/ Methadone 70 mg 12/23/16 06:00 12/23/16 05:48 HCl 30 mg PO 70 mg DAILY@0600 [facility] Administration Metoprolol Tartrate 50 mg 12/22/16 22:00 12/23/16 09:02 Lopressor - PO 50 mg BID [facility] Administration Nystatin 500,000 units 12/22/16 18:00 12/23/16 17:11 Nystatin Oral Suspension - PO 500,000 units Q6HPO [facility] Administration Rivaroxaban 20 mg 12/23/16 10:00 12/23/16 09:02 Xarelto - PO 20 mg DAILY [facility] Administration Silver Sulfadiazine 1 applic 12/22/16 16:45 12/23/16 09:03 Silvadene - TP 1 applic DAILY [facility] Administration Microbiology 12/22/16 09:00 Blood Culture - Preliminary Blood - Peripheral Venous NO GROWTH OBTAINED AFTER 24 HOURS, INCUBATION TO CONTINUE FOR 4 DAYS. 12/22/16 09:00 Blood Culture - Preliminary Blood - Peripheral Venous Pending Organism Assessment: 61 year old male with newly dx Afib (on xaralto) CHF, HTN, PAD R>L and venous ulcerations to b/l lower ext, opioid dependence (on methadone for 5 years for heroin) admitted with bilateral wound cellulitis with weeping and A fib with RVR. Plan: 1. A Fib with RVR - Self converted SR - Discontinue Cardizem 180 BID, digoxin - Stop ASA - Xaralto 20 qday - Continue Metoprolol 50 BID - F/u TSH level 2. PAD - CTA shows distal aorta occlusion, with common and external iliac artery occlusion - Persantine stress test tomorrow for cardiac clearance - NPO after midnight 3. Bilateral LE cellulitis/venous stasis wounds - Pre berrios x1 BC g+ cocci short chain, follow results - Continue vanco and Ertapenem (day 2) - Silvadene and antonio bandage daily 4. CHF - Likely diastolic - ECHO Normal LV size and fxn, mild MR, TR - Lasix 40mg BID - Lipid panel noted 5. Uncontrolled DM II, newly diagonsed - Start ISS, BGM ACHS - Will need to go home with metformin 6. Lactic acidemia - Resolved; likely due to above underlying infection 7. Methadone dependance - Methadone 70mg daily Problem List - Problems (1) Atrial fibrillation with rapid ventricular response Code(s): I48.91 - UNSPECIFIED ATRIAL FIBRILLATION (2) Cellulitis Code(s): L03.90 - CELLULITIS, UNSPECIFIED Qualifiers: Site of cellulitis of extremity: lower extremity Laterality: unspecified laterality (3) Skin breakdown Code(s): L90.9 - ATROPHIC DISORDER OF SKIN, UNSPECIFIED (4) CHF (congestive heart failure) Code(s): I50.9 - HEART FAILURE, UNSPECIFIED (5) PAD (peripheral artery disease) Code(s): I73.9 - PERIPHERAL VASCULAR DISEASE, UNSPECIFIED (6) Methadone dependence Code(s): F11.20 - OPIOID DEPENDENCE, UNCOMPLICATED (7) Substance abuse Code(s): F19.10 - OTHER PSYCHOACTIVE SUBSTANCE ABUSE, UNCOMPLICATED Visit type - Emergency Visit Emergency Visit: Yes ED Registration Date: 12/22/16 Care time: The patient presented to the Emergency Department on the above date and was hospitalized for further evaluation of their emergent condition. - New Patient This patient is new to me today: No - Critical Care Critical Care patient: No
[2016-12-23] MEDS: INSULIN SLIDING SCALE (NOVOLOG) 1 VIAL SQ SCH (21:19)
[2016-12-24] MEDS: NYSTATIN 500,000 UNITS/5 ML SUSPENSION PO SCH ×4 (00:20→17:03)
[2016-12-24] MEDS ORDERED: METHADONE HCL 40 MG DISPERSABLE TABLET ONE (06:11)
[2016-12-24] MEDS ORDERED: METHADONE HCL 10 MG TABLET ONE (06:11)
[2016-12-24] MEDS: METHADONE 40 MG, METHADONE 30 MG PO SCH (06:14)
[2016-12-24] MEDS: INSULIN SLIDING SCALE (NOVOLOG) 1 VIAL SQ SCH ×4 (06:18→21:19)
[2016-12-24 07:42] LABS: BASOPHIL 0.7 % (0-2.0); EOSINOPHIL 0.9 % (0-4.5); MCH 30.1 pg (25.7-33.7); MCHC 32.7 g/dl (32.0-35.9); MEAN CELL VOLUME 92.1 fl (80-96); NEUTROPHILS 72.1 % (42.8-82.8); PLATELET COUNT 261 K/MM3 (134-434); RDW 15.8 % (11.9-15.9); WHITE BLOOD COUNT 10.9 K/mm3 (4.0-10.0)
[2016-12-24 08:33] LABS: CALCIUM 8.9 mg/dL (8.5-10.1); COCKROFT - GAULT 161.85; CREATININE 0.6 mg/dL (0.7-1.3); THYROID STIMULATING HORMONE 0.48 uIU/ml (0.358-3.74)
[2016-12-24] MEDS ORDERED: DIPYRIDAMOLE STRESS TEST 50 MG in DEXTROSE 5%-WATER - 40 ML IVPB ONE (10:30)
--- NOTE | 2016-12-24 12:08 | PN ---
Progress Note, Physician History of Present Illness: PMD: Trisha Rodas Remains in sinus rhythm, underwent pre-op P-Myoview, results pending. - Current Medication List Current Medications: Active Medications Ertapenem 1 gm/ Sodium (Chloride) 50 mls @ 50 mls/hr IVPB DAILY [facility] PRN Reason: Protocol Last Admin: 12/23/16 09:01 Dose: 50 mls/hr Vancomycin HCl 1,250 mg/ (Dextrose) 250 mls @ 250 mls/hr IVPB DAILY [facility] PRN Reason: Protocol Last Admin: 12/23/16 09:02 Dose: 250 mls/hr Insulin Aspart (Novolog Vial Sliding Scale -) 1 vial SQ ACHS [facility] PRN Reason: Protocol Last Admin: 12/24/16 06:18 Dose: Not Given Methadone HCl 40 mg/ Methadone (HCl 30 mg) 70 mg PO DAILY@0600 [facility] Last Admin: 12/24/16 06:14 Dose: 70 mg Metoprolol Tartrate (Lopressor -) 50 mg PO BID [facility] Last Admin: 12/23/16 21:19 Dose: 50 mg Nystatin (Nystatin Oral Suspension -) 500,000 units PO Q6HPO [facility] Last Admin: 12/24/16 06:14 Dose: 500,000 units Rivaroxaban (Xarelto -) 20 mg PO DAILY [facility] Last Admin: 12/23/16 09:02 Dose: 20 mg Silver Sulfadiazine (Silvadene -) 1 applic TP DAILY [facility] Last Admin: 12/23/16 09:03 Dose: 1 applic - Objective Vital Signs: Vital Signs Temperature 97.9 F 12/24/16 07:56 Pulse Rate 51 L 12/24/16 07:56 Respiratory Rate 20 12/24/16 08:00 Blood Pressure 122/48 12/24/16 07:56 O2 Sat by Pulse Oximetry (%) 92 L 12/24/16 08:00 Constitutional: Yes: No Distress, Calm Neck: Yes: Supple Cardiovascular: Yes: Regular Rate and Rhythm Respiratory: Yes: Regular, CTA Bilaterally Gastrointestinal: Yes: Normal Bowel Sounds, Soft, Abdomen, Obese Edema: Yes Labs: CBC, BMP 12/24/16 05:35 12/24/16 05:35 INR, PTT INR 1.17 (0.82-1.09) H 12/22/16 09:00 Problem List - Problems (1) Atrial fibrillation with rapid ventricular response Code(s): I48.91 - UNSPECIFIED ATRIAL FIBRILLATION (2) Cellulitis Code(s): L03.90 - CELLULITIS, UNSPECIFIED Qualifiers: Site of cellulitis of extremity: lower extremity Laterality: unspecified laterality (3) Methadone dependence Code(s): F11.20 - OPIOID DEPENDENCE, UNCOMPLICATED (4) PAD (peripheral artery disease) Code(s): I73.9 - PERIPHERAL VASCULAR DISEASE, UNSPECIFIED (5) Substance abuse Code(s): F19.10 - OTHER PSYCHOACTIVE SUBSTANCE ABUSE, UNCOMPLICATED (6) Diastolic dysfunction Code(s): I51.9 - HEART DISEASE, UNSPECIFIED (7) Pre-operative cardiovascular examination, high risk surgery Code(s): Z01.810 - ENCOUNTER FOR PREPROCEDURAL CARDIOVASCULAR EXAMINATION Assessment/Plan 12/23/2016 Echo: Normal LV size and fxn, mod MR, mild TR A/P 1. Paroxysmal atrial fibrillation with RVR -> sinus bradycardia off NOAC carole-op 2. PAD with distal aortic occlusion and common and external iliac artery occlusion. Bilateral lower ext ulcers and overlying cellulitis. 3. Diastolic dysfunction 4. Opiate dependence 5. Non-compliance P:1. D/c Xarelto 20 qPM pre-op, should wait 2 days off to safely proceed and resume once post-op hemostasis has been achieved, continue Lopressor 50 bid 2. F/u persantine myoview results with plan for aorto-bifemoral bypass to restore circulation. 3. Empiric abx course per C&S, wound care 4. Further carole-operative recommendations pending risk stratification with persantine myoview
[2016-12-24] MEDS: ERTAPENEM SODIUM 1 GM in SODIUM CHLORIDE 50 ML IVPB SCH (12:09)
[2016-12-24] MEDS: SILVER SULFADIAZINE 1% TOP CREAM 50 GM JAR TP SCH (12:11)
[2016-12-24] MEDS: RIVAROXABAN 20 MG TABLET PO SCH (12:11)
[2016-12-24] MEDS: METOPROLOL TARTRATE 50 MG TABLET (FP) PO SCH ×2 (12:11→21:19)
[2016-12-24] MEDS: VANCOMYCIN 1,250 MG in DEXTROSE 5%-WATER - 250 ML IVPB SCH (12:14)
--- NOTE | 2016-12-24 12:21 | PN ---
Progress Note (short form) - Note Progress Note: Subjective: The patient was seen and examined at the bedside, he just came back from stress test. He has no complaints at this time. Current Medications Generic Name Dose Route Start Last Admin Trade Name Janie PRN Reason Stop Dose Admin Ertapenem 1 gm/ Sodium 50 mls @ 50 mls/hr 12/22/16 20:45 12/23/16 09:01 Chloride IVPB 50 mls/hr DAILY [facility] Administration Protocol Vancomycin HCl 1,250 mg/ 250 mls @ 250 mls/hr 12/23/16 10:00 12/23/16 09:02 Dextrose IVPB 250 mls/hr DAILY [facility] Administration Protocol Insulin Aspart 1 vial 12/23/16 22:00 12/24/16 06:18 Novolog Vial Sliding Scale - SQ Not Given ACHS [facility] Protocol Methadone HCl 40 mg/ Methadone 70 mg 12/23/16 06:00 12/24/16 06:14 HCl 30 mg PO 70 mg DAILY@0600 [facility] Administration Metoprolol Tartrate 50 mg 12/22/16 22:00 12/23/16 21:19 Lopressor - PO 50 mg BID [facility] Administration Nystatin 500,000 units 12/22/16 18:00 12/24/16 06:14 Nystatin Oral Suspension - PO 500,000 units Q6HPO [facility] Administration Rivaroxaban 20 mg 12/23/16 10:00 12/23/16 09:02 Xarelto - PO 20 mg DAILY [facility] Administration Silver Sulfadiazine 1 applic 12/22/16 16:45 12/23/16 09:03 Silvadene - TP 1 applic DAILY [facility] Administration Objective: Vital Signs Period Temp Pulse Resp BP Sys/Chatterjee Pulse Ox Last 24 Hr 97.4 F-98.3 F 51-83 18-20 99-128/44-70 92 Physical Exam: General: NAD, A&Ox3 HEENT: Poor dentition Lungs: CTA bilaterally Heart: RRR, S1S2 Abd: Soft, non-tender, non-distended. Normoactive bowel sounds Ext: B/l lower extremity wounds, erythema, with drainage. + edema bilaterally CBCD WBC 10.9 K/mm3 (4.0-10.0) H 12/24/16 05:35 RBC 4.28 M/mm3 (4.00-5.60) 12/24/16 05:35 Hgb 12.9 GM/dL (11.7-16.9) 12/24/16 05:35 Hct 39.4 % (35.4-49) 12/24/16 05:35 MCV 92.1 fl (80-96) 12/24/16 05:35 MCHC 32.7 g/dl (32.0-35.9) 12/24/16 05:35 RDW 15.8 % (11.9-15.9) 12/24/16 05:35 Plt Count 261 K/MM3 (134-434) 12/24/16 05:35 MPV 9.0 fl (7.5-11.1) 12/24/16 05:35 CMP Sodium 140 mmol/L (136-145) 12/24/16 05:35 Potassium 4.6 mmol/L (3.5-5.1) 12/24/16 05:35 Chloride 102 mmol/L (98-107) 12/24/16 05:35 Carbon Dioxide 29 mmol/L (21-32) 12/24/16 05:35 Anion Gap 9 (8-16) 12/24/16 05:35 BUN 15 mg/dL (7-18) D 12/24/16 05:35 Creatinine 0.6 mg/dL (0.7-1.3) L 12/24/16 05:35 Creat Clearance w eGFR > 60 (>60) 12/23/16 05:40 Random Glucose 133 mg/dL (74-106) H 12/24/16 05:35 Calcium 8.9 mg/dL (8.5-10.1) 12/24/16 05:35 Total Bilirubin 0.4 mg/dL (0.2-1.0) D 12/23/16 05:40 AST 30 U/L (15-37) D 12/23/16 05:40 ALT 31 U/L (12-78) D 12/23/16 05:40 Alkaline Phosphatase 114 U/L (45-117) 12/23/16 05:40 Total Protein 6.4 g/dl (6.4-8.2) 12/23/16 05:40 Albumin 3.0 g/dl (3.4-5.0) L 12/23/16 05:40 CARDIAC ENZYMES Creatine Kinase 45 IU/L (39-308) 12/22/16 11:40 Troponin I 0.02 ng/ml (0.00-0.05) 12/22/16 11:40 Microbiology 12/22/16 09:00 Blood - Peripheral Venous Blood Culture - Preliminary Presumptive Mssa (Pbp2a Neg) Group D Strep Or Entero Coccus Group D Strep Or Entero Coccus#2 12/22/16 09:00 Blood - Peripheral Venous Blood Culture - Preliminary NO GROWTH OBTAINED AFTER 48 HOURS, INCUBATION TO CONTINUE FOR 3 DAYS. Assessment: This is a 61 year old male with PMHx of newly diagnosed a.fib (on Xarelto), CHF, HTN, PAD R>L and venous ulcerations to b/l lower ext, opioid dependence (on methadone for 5 years for heroin) admitted with bilateral wound cellulitis with weeping and A fib with RVR. Plan: 1) Cardiology: A.fib with RVR - Self converted to sinus rhythm - Continue Xarelto - Continue Lopressor - TSH wnl Diastolic dysfunction - ECHO 12/23 with normal LV size and function. RV normal size. Mod MR, mild TR - Lasix 40mg daily 2) VAscular: PAD - CTA with distal aorta occlusion, common and external iliac artery occlusion - F/u stress test today - For aorto-bifemoral bypass to restore circulation once medical clearance - Appreciate vascular surgery consult 3) ID: B/l lower extremity cellulitis/venous stasis wounds - Blood culture with presumptive MSSA - Continue Ertapenem (12/22- ) - Continue Vancomcyin (12/22- ) - Silvadene and Sekou bandage daily - Appreciate ID consult 4) Endocrine: Newly diagnosed DM - BGM ACHS - ISS ACHS 5) Psych: Methadone dependence - Continue Methadone 70mg po daily 6) Dispo: - Requires continued inpatient care CODE STATUS: FULL CODE Visit type - Emergency Visit Emergency Visit: Yes ED Registration Date: 12/22/16 Care time: The patient presented to the Emergency Department on the above date and was hospitalized for further evaluation of their emergent condition. - New Patient This patient is new to me today: Yes Date on this admission: 12/25/16 - Critical Care Critical Care patient: No
--- NOTE | 2016-12-24 13:32 | EKG ---
Test Reason : Blood Pressure : / mmHG Vent. Rate : 067 BPM Atrial Rate : 050 BPM P-R Int : 000 ms QRS Dur : 084 ms QT Int : 410 ms P-R-T Axes : 000 059 234 degrees QTc Int : 433 ms ACCELERATED JUNCTIONAL RHYTHM ABNORMAL ECG Confirmed by MIGUE DALE MD ([id number]) on 12/24/2016 1:31:54 PM Referred By: Karissa GALICIA Confirmed By:MIGUE DALE MD
--- NOTE | 2016-12-24 15:10 | PN ---
Progress Note, Physician History of Present Illness: patient stable no new issues legs improving - Current Medication List Current Medications: Active Medications Furosemide (Lasix -) 40 mg PO DAILY [facility] Ertapenem 1 gm/ Sodium (Chloride) 50 mls @ 50 mls/hr IVPB DAILY [facility] PRN Reason: Protocol Last Admin: 12/24/16 12:09 Dose: 50 mls/hr Vancomycin HCl 1,250 mg/ (Dextrose) 250 mls @ 250 mls/hr IVPB DAILY [facility] PRN Reason: Protocol Last Admin: 12/24/16 12:14 Dose: 250 mls/hr Insulin Aspart (Novolog Vial Sliding Scale -) 1 vial SQ ACHS [facility] PRN Reason: Protocol Last Admin: 12/24/16 12:07 Dose: Not Given Methadone HCl 40 mg/ Methadone (HCl 30 mg) 70 mg PO DAILY@0600 [facility] Last Admin: 12/24/16 06:14 Dose: 70 mg Metoprolol Tartrate (Lopressor -) 50 mg PO BID [facility] Last Admin: 12/24/16 12:11 Dose: 50 mg Nystatin (Nystatin Oral Suspension -) 500,000 units PO Q6HPO [facility] Last Admin: 12/24/16 12:12 Dose: 500,000 units Rivaroxaban (Xarelto -) 20 mg PO DAILY [facility] Silver Sulfadiazine (Silvadene -) 1 applic TP DAILY [facility] Last Admin: 12/24/16 12:11 Dose: 1 applic - Objective Vital Signs: Vital Signs Temperature 98.7 F 12/24/16 14:49 Pulse Rate 53 L 12/24/16 14:49 Respiratory Rate 20 12/24/16 14:49 Blood Pressure 142/65 12/24/16 14:49 O2 Sat by Pulse Oximetry (%) 92 L 12/24/16 08:00 Constitutional: Yes: No Distress, Calm Cardiovascular: Yes: Pulse Irregular Respiratory: Yes: Regular, CTA Bilaterally Gastrointestinal: Yes: Normal Bowel Sounds, Soft Musculoskeletal: Yes: Other Extremities: Yes: Other Integumentary: Yes: Other Wound/Incision: Yes: Dressing Dry and Intact Psychiatric: Yes: Alert, Oriented Labs: CBC, BMP 12/24/16 05:35 12/24/16 05:35 INR, PTT INR 1.17 (0.82-1.09) H 12/22/16 09:00 Assessment/Plan - Problems (1) Atrial fibrillation with rapid ventricular response Code(s): I48.91 - UNSPECIFIED ATRIAL FIBRILLATION (2) Cellulitis Code(s): L03.90 - CELLULITIS, UNSPECIFIED Qualifiers: Site of cellulitis of extremity: lower extremity Laterality: unspecified laterality (3) Methadone dependence Code(s): F11.20 - OPIOID DEPENDENCE, UNCOMPLICATED (4) PAD (peripheral artery disease) Code(s): I73.9 - PERIPHERAL VASCULAR DISEASE, UNSPECIFIED (5) Substance abuse Code(s): F19.10 - OTHER PSYCHOACTIVE SUBSTANCE ABUSE, UNCOMPLICATED (6) Diastolic dysfunction Code(s): I51.9 - HEART DISEASE, UNSPECIFIED wound infection plan blood cx noted await for final identification of the organism once we have that then will decide if we can deescalate ertapenam rest continue as per primary team
--- NOTE | 2016-12-24 16:07 | PN ---
Progress Note (short form) - Note Progress Note: Vascular Surgery Awaiting stress test results. Pt with positive blood cx. If stess is negative, will do surgery once blood cx come back negative. Will be on standby
[2016-12-25] MEDS: NYSTATIN 500,000 UNITS/5 ML SUSPENSION PO SCH ×4 (00:33→17:00)
[2016-12-25] MEDS ORDERED: METHADONE HCL 10 MG TABLET ONE (05:44)
[2016-12-25] MEDS ORDERED: METHADONE HCL 40 MG DISPERSABLE TABLET ONE (05:44)
[2016-12-25] MEDS: METHADONE 40 MG, METHADONE 30 MG PO SCH (05:54)
[2016-12-25] MEDS: INSULIN SLIDING SCALE (NOVOLOG) 1 VIAL SQ SCH ×4 (06:11→22:21)
[2016-12-25 08:12] LABS: MCH 30.2 pg (25.7-33.7); MCHC 33.4 g/dl (32.0-35.9); MEAN CELL VOLUME 90.7 fl (80-96); PLATELET COUNT 239 K/MM3 (134-434); RDW 15.9 % (11.9-15.9); WHITE BLOOD COUNT 9.2 K/mm3 (4.0-10.0)
--- NOTE | 2016-12-25 09:35 | PN ---
Progress Note (short form) - Note Progress Note: Subjective: The patient was seen and examined at the bedside, he just came back from stress test. He has no complaints at this time. Current Medications Generic Name Dose Route Start Last Admin Trade Name Janie PRN Reason Stop Dose Admin Ertapenem 1 gm/ Sodium 50 mls @ 50 mls/hr 12/22/16 20:45 12/23/16 09:01 Chloride IVPB 50 mls/hr DAILY [facility] Administration Protocol Vancomycin HCl 1,250 mg/ 250 mls @ 250 mls/hr 12/23/16 10:00 12/23/16 09:02 Dextrose IVPB 250 mls/hr DAILY [facility] Administration Protocol Insulin Aspart 1 vial 12/23/16 22:00 12/24/16 06:18 Novolog Vial Sliding Scale - SQ Not Given ACHS [facility] Protocol Methadone HCl 40 mg/ Methadone 70 mg 12/23/16 06:00 12/24/16 06:14 HCl 30 mg PO 70 mg DAILY@0600 [facility] Administration Metoprolol Tartrate 50 mg 12/22/16 22:00 12/23/16 21:19 Lopressor - PO 50 mg BID [facility] Administration Nystatin 500,000 units 12/22/16 18:00 12/24/16 06:14 Nystatin Oral Suspension - PO 500,000 units Q6HPO [facility] Administration Rivaroxaban 20 mg 12/23/16 10:00 12/23/16 09:02 Xarelto - PO 20 mg DAILY [facility] Administration Silver Sulfadiazine 1 applic 12/22/16 16:45 12/23/16 09:03 Silvadene - TP 1 applic DAILY [facility] Administration Objective: Vital Signs Period Temp Pulse Resp BP Sys/Chatterjee Pulse Ox Last 24 Hr 97.4 F-98.3 F 51-83 18-20 99-128/44-70 92 Physical Exam: General: NAD, A&Ox3 HEENT: Poor dentition Lungs: CTA bilaterally Heart: RRR, S1S2 Abd: Soft, non-tender, non-distended. Normoactive bowel sounds Ext: B/l lower extremity wounds, erythema, with drainage. + edema bilaterally CBCD WBC 10.9 K/mm3 (4.0-10.0) H 12/24/16 05:35 RBC 4.28 M/mm3 (4.00-5.60) 12/24/16 05:35 Hgb 12.9 GM/dL (11.7-16.9) 12/24/16 05:35 Hct 39.4 % (35.4-49) 12/24/16 05:35 MCV 92.1 fl (80-96) 12/24/16 05:35 MCHC 32.7 g/dl (32.0-35.9) 12/24/16 05:35 RDW 15.8 % (11.9-15.9) 12/24/16 05:35 Plt Count 261 K/MM3 (134-434) 12/24/16 05:35 MPV 9.0 fl (7.5-11.1) 12/24/16 05:35 CMP Sodium 140 mmol/L (136-145) 12/24/16 05:35 Potassium 4.6 mmol/L (3.5-5.1) 12/24/16 05:35 Chloride 102 mmol/L (98-107) 12/24/16 05:35 Carbon Dioxide 29 mmol/L (21-32) 12/24/16 05:35 Anion Gap 9 (8-16) 12/24/16 05:35 BUN 15 mg/dL (7-18) D 12/24/16 05:35 Creatinine 0.6 mg/dL (0.7-1.3) L 12/24/16 05:35 Creat Clearance w eGFR > 60 (>60) 12/23/16 05:40 Random Glucose 133 mg/dL (74-106) H 12/24/16 05:35 Calcium 8.9 mg/dL (8.5-10.1) 12/24/16 05:35 Total Bilirubin 0.4 mg/dL (0.2-1.0) D 12/23/16 05:40 AST 30 U/L (15-37) D 12/23/16 05:40 ALT 31 U/L (12-78) D 12/23/16 05:40 Alkaline Phosphatase 114 U/L (45-117) 12/23/16 05:40 Total Protein 6.4 g/dl (6.4-8.2) 12/23/16 05:40 Albumin 3.0 g/dl (3.4-5.0) L 12/23/16 05:40 CARDIAC ENZYMES Creatine Kinase 45 IU/L (39-308) 12/22/16 11:40 Troponin I 0.02 ng/ml (0.00-0.05) 12/22/16 11:40 Microbiology 12/22/16 09:00 Blood - Peripheral Venous Blood Culture - Preliminary Presumptive Mssa (Pbp2a Neg) Group D Strep Or Entero Coccus Group D Strep Or Entero Coccus#2 12/22/16 09:00 Blood - Peripheral Venous Blood Culture - Preliminary NO GROWTH OBTAINED AFTER 48 HOURS, INCUBATION TO CONTINUE FOR 3 DAYS. Assessment: This is a 61 year old male with PMHx of newly diagnosed a.fib (on Xarelto), CHF, HTN, PAD R>L and venous ulcerations to b/l lower ext, opioid dependence (on methadone for 5 years for heroin) admitted with bilateral wound cellulitis with weeping and A fib with RVR. Plan: 1) Cardiology: A.fib with RVR - Self converted to sinus rhythm - Continue Xarelto - Continue Lopressor - TSH wnl Diastolic dysfunction - ECHO 12/23 with normal LV size and function. RV normal size. Mod MR, mild TR - Lasix 40mg daily - Stress test with small size, mild intensity reversible defect of inferior wall from base to mid consistent with mild ischemia, LVEF 71% - Appreciate cardiology consult 2) Vascular: PAD - CTA with distal aorta occlusion, common and external iliac artery occlusion - For aorto-bifemoral bypass to restore circulation once medical clearance - Appreciate vascular surgery consult 3) ID: B/l lower extremity cellulitis/venous stasis wounds - Blood culture with presumptive MSSA - Continue Ertapenem (12/22- ) - Continue Vancomcyin (12/22- ), vanco trough 1.5 today, recommend increasing vancomyin dose but will defer to ID as it is restricted to ID only - Silvadene and Sekou bandage daily - Appreciate ID consult 4) Endocrine: Newly diagnosed DM - BGM ACHS - ISS ACHS 5) Psych: Methadone dependence - Continue Methadone 70mg po daily 6) Dispo: - Requires continued inpatient care CODE STATUS: FULL CODE Visit type - Emergency Visit Emergency Visit: Yes ED Registration Date: 12/22/16 Care time: The patient presented to the Emergency Department on the above date and was hospitalized for further evaluation of their emergent condition. - New Patient This patient is new to me today: No - Critical Care Critical Care patient: No
[2016-12-25] MEDS: ERTAPENEM SODIUM 1 GM in SODIUM CHLORIDE 50 ML IVPB SCH (09:42)
[2016-12-25] MEDS: METOPROLOL TARTRATE 50 MG TABLET (FP) PO SCH ×2 (09:42→22:25)
[2016-12-25] MEDS: FUROSEMIDE 40 MG TABLET (FP) PO SCH (09:42)
[2016-12-25] MEDS: RIVAROXABAN 20 MG TABLET PO SCH (09:42)
[2016-12-25] MEDS: SILVER SULFADIAZINE 1% TOP CREAM 50 GM JAR TP SCH (09:43)
[2016-12-25] MEDS: VANCOMYCIN 1,250 MG in DEXTROSE 5%-WATER - 250 ML IVPB SCH ×2 (09:46→22:16)
--- NOTE | 2016-12-25 13:54 | PN ---
Progress Note, Physician History of Present Illness: PMD: Trisha Rodas Remains in sinus rhythm with PAC, underwent pre-op P-Myoview showing small mild inferior ischemia with preserved LVEF 71%. He denies exertional chest pain or dyspnea, mostly exertional claudication bilaterally. - Current Medication List Current Medications: Active Medications Furosemide (Lasix -) 40 mg PO DAILY [facility] Last Admin: 12/25/16 09:42 Dose: 40 mg Ertapenem 1 gm/ Sodium (Chloride) 50 mls @ 50 mls/hr IVPB DAILY [facility] PRN Reason: Protocol Last Admin: 12/25/16 09:42 Dose: 50 mls/hr Vancomycin HCl 1,250 mg/ (Dextrose) 250 mls @ 250 mls/hr IVPB DAILY [facility] PRN Reason: Protocol Last Admin: 12/25/16 09:46 Dose: 250 mls/hr Insulin Aspart (Novolog Vial Sliding Scale -) 1 vial SQ ACHS [facility] PRN Reason: Protocol Last Admin: 12/25/16 11:59 Dose: Not Given Methadone HCl 40 mg/ Methadone (HCl 30 mg) 70 mg PO DAILY@0600 [facility] Last Admin: 12/25/16 05:54 Dose: 70 mg Metoprolol Tartrate (Lopressor -) 50 mg PO BID [facility] Last Admin: 12/25/16 09:42 Dose: 50 mg Nystatin (Nystatin Oral Suspension -) 500,000 units PO Q6HPO [facility] Last Admin: 12/25/16 12:00 Dose: Not Given Rivaroxaban (Xarelto -) 20 mg PO DAILY [facility] Last Admin: 12/25/16 09:42 Dose: 20 mg Silver Sulfadiazine (Silvadene -) 1 applic TP DAILY [facility] Last Admin: 12/25/16 09:43 Dose: 1 applic - Objective Vital Signs: Vital Signs Temperature 98 F 12/25/16 08:01 Pulse Rate 59 L 12/25/16 08:01 Respiratory Rate 20 12/25/16 08:01 Blood Pressure 145/80 12/25/16 08:01 O2 Sat by Pulse Oximetry (%) 96 12/25/16 08:00 Constitutional: Yes: No Distress, Calm Neck: Yes: Supple Cardiovascular: Yes: Regular Rate and Rhythm Respiratory: Yes: Regular, Diminished Gastrointestinal: Yes: Normal Bowel Sounds, Soft, Abdomen, Obese Edema: Yes Labs: CBC, BMP 12/25/16 05:38 12/24/16 05:35 INR, PTT INR 1.17 (0.82-1.09) H 12/22/16 09:00 - ....Imaging EKG: Report Reviewed (Tele: SR with PAC) Problem List - Problems (1) Atrial fibrillation with rapid ventricular response Code(s): I48.91 - UNSPECIFIED ATRIAL FIBRILLATION (2) Cellulitis Code(s): L03.90 - CELLULITIS, UNSPECIFIED Qualifiers: Site of cellulitis of extremity: lower extremity Laterality: unspecified laterality (3) Methadone dependence Code(s): F11.20 - OPIOID DEPENDENCE, UNCOMPLICATED (4) PAD (peripheral artery disease) Code(s): I73.9 - PERIPHERAL VASCULAR DISEASE, UNSPECIFIED (5) Substance abuse Code(s): F19.10 - OTHER PSYCHOACTIVE SUBSTANCE ABUSE, UNCOMPLICATED (6) Diastolic dysfunction Code(s): I51.9 - HEART DISEASE, UNSPECIFIED (7) Pre-operative cardiovascular examination, high risk surgery Code(s): Z01.810 - ENCOUNTER FOR PREPROCEDURAL CARDIOVASCULAR EXAMINATION Assessment/Plan 12/23/2016 Echo: Normal LV size and fxn, mod MR, mild TR 12/24/2016: Persantine-Myoview: Small size mild inferior wall from base to mid ischemia, LVEF 71% A/P 1. Paroxysmal atrial fibrillation with RVR -> sinus bradycardia off NOAC carole-op 2. PAD with distal aortic occlusion and common and external iliac artery occlusion. Bilateral lower ext ulcers and overlying cellulitis. 3. CAD, mildly abnormal functional study 4. Diastolic dysfunction 5. Opiate dependence 6. Non-compliance P:1. Hold Xarelto 20 qPM pre-op, should wait 2 days off to safely proceed and resume once post-op hemostasis has been achieved, continue Lopressor 50 bid 2. May proceed with aorto-bifemoral bypass to restore circulation from CV- standpoint given low risk stress test 3. Empiric abx course per C&S, wound care 4. Continue Lasix 40 qd, start losartan 25 qd and uptitrate as hemodynamics tolerate
--- NOTE | 2016-12-25 14:17 | PN ---
Progress Note (short form) - Note Progress Note: VAscular Surgery Cleared by cardiology for surgery Will plan surgery for early next week. Will stop gladys. Ronnie Cunningham DO
[2016-12-25] MEDS: LOSARTAN POTASSIUM 25 MG TABLET PO SCH (14:20)
--- NOTE | 2016-12-25 15:28 | PN ---
Progress Note, Physician History of Present Illness: doing well legs are starting to look better patient feeling well plan for surgery next week - Current Medication List Current Medications: Active Medications Furosemide (Lasix -) 40 mg PO DAILY [facility] Last Admin: 12/25/16 09:42 Dose: 40 mg Ertapenem 1 gm/ Sodium (Chloride) 50 mls @ 50 mls/hr IVPB DAILY [facility] PRN Reason: Protocol Last Admin: 12/25/16 09:42 Dose: 50 mls/hr Vancomycin HCl 1,250 mg/ (Dextrose) 250 mls @ 250 mls/hr IVPB BID [facility] PRN Reason: Protocol Insulin Aspart (Novolog Vial Sliding Scale -) 1 vial SQ ACHS [facility] PRN Reason: Protocol Last Admin: 12/25/16 11:59 Dose: Not Given Losartan Potassium (Cozaar -) 25 mg PO DAILY [facility] Last Admin: 12/25/16 14:20 Dose: 25 mg Methadone HCl 40 mg/ Methadone (HCl 30 mg) 70 mg PO DAILY@0600 [facility] Last Admin: 12/25/16 05:54 Dose: 70 mg Metoprolol Tartrate (Lopressor -) 50 mg PO BID [facility] Last Admin: 12/25/16 09:42 Dose: 50 mg Nystatin (Nystatin Oral Suspension -) 500,000 units PO Q6HPO [facility] Last Admin: 12/25/16 12:00 Dose: Not Given Rivaroxaban (Xarelto -) 20 mg PO DAILY [facility] Last Admin: 12/25/16 09:42 Dose: 20 mg Silver Sulfadiazine (Silvadene -) 1 applic TP DAILY [facility] Last Admin: 12/25/16 09:43 Dose: 1 applic - Objective Vital Signs: Vital Signs Temperature 98.9 F 12/25/16 14:37 Pulse Rate 54 L 12/25/16 14:37 Respiratory Rate 18 12/25/16 14:37 Blood Pressure 107/67 12/25/16 14:37 O2 Sat by Pulse Oximetry (%) 96 12/25/16 08:00 Constitutional: Yes: No Distress, Calm Cardiovascular: Yes: Regular Rate and Rhythm Respiratory: Yes: Regular, CTA Bilaterally Gastrointestinal: Yes: Normal Bowel Sounds, Soft Musculoskeletal: Yes: Other Extremities: Yes: Other Edema: LLE: 1+, RLE: 1+ Integumentary: Yes: Erythema, Other Wound/Incision: Yes: Dressing Dry and Intact, Draining Neurological: Yes: Alert, Oriented Psychiatric: Yes: Alert, Oriented Labs: CBC, BMP 12/25/16 05:38 12/24/16 05:35 INR, PTT INR 1.17 (0.82-1.09) H 12/22/16 09:00 Assessment/Plan - Problems (1) Atrial fibrillation with rapid ventricular response Code(s): I48.91 - UNSPECIFIED ATRIAL FIBRILLATION (2) Cellulitis Code(s): L03.90 - CELLULITIS, UNSPECIFIED Qualifiers: Site of cellulitis of extremity: lower extremity Laterality: unspecified laterality (3) Methadone dependence Code(s): F11.20 - OPIOID DEPENDENCE, UNCOMPLICATED (4) PAD (peripheral artery disease) Code(s): I73.9 - PERIPHERAL VASCULAR DISEASE, UNSPECIFIED (5) Substance abuse Code(s): F19.10 - OTHER PSYCHOACTIVE SUBSTANCE ABUSE, UNCOMPLICATED (6) Diastolic dysfunction Code(s): I51.9 - HEART DISEASE, UNSPECIFIED wound infection plan continue current mgmt one org still pending repeat blood cx still pending vanco trough noted vanco dose increased
--- NOTE | 2016-12-25 17:51 | PN ---
Progress Note (short form) - Note Progress Note: Vascular Surgery Once blood cx are clear will do aorto-bifemoral bypss with dacron. Spoke to Dr. Ruiz and he will help me with the case. Will plan for early next week. Spoke to pt about plan. Ronnie Cunningham DO
[2016-12-26] MEDS: NYSTATIN 500,000 UNITS/5 ML SUSPENSION PO SCH ×4 (00:16→17:10)
[2016-12-26] MEDS ORDERED: METHADONE HCL 10 MG TABLET ONE (06:02)
[2016-12-26] MEDS ORDERED: METHADONE HCL 40 MG DISPERSABLE TABLET ONE (06:02)
[2016-12-26] MEDS: METHADONE 40 MG, METHADONE 30 MG PO SCH (06:04)
[2016-12-26] MEDS: INSULIN SLIDING SCALE (NOVOLOG) 1 VIAL SQ SCH ×4 (06:07→22:12)
[2016-12-26 07:50] LABS: BASOPHIL 0.6 % (0-2.0); EOSINOPHIL 1.3 % (0-4.5); MCH 30.1 pg (25.7-33.7); MCHC 33.1 g/dl (32.0-35.9); MEAN CELL VOLUME 90.9 fl (80-96); NEUTROPHILS 73.8 % (42.8-82.8); PLATELET COUNT 240 K/MM3 (134-434); RDW 16.1 % (11.9-15.9); WHITE BLOOD COUNT 10.5 K/mm3 (4.0-10.0)
[2016-12-26 08:19] LABS: ANION GAP 9 (8-16); BILIRUBIN,TOTAL 0.5 mg/dL (0.2-1.0); CALCIUM 9.2 mg/dL (8.5-10.1); CO2 29 mmol/L (21-32); COCKROFT - GAULT 160; CREATININE 0.6 mg/dL (0.7-1.3); GLUCOSE,RANDOM 109 mg/dL (74-106); SGOT/AST 24 U/L (15-37); SGPT/ALT 36 U/L (12-78); TOT PROT 6.4 g/dl (6.4-8.2)
[2016-12-26 08:20] LABS: ALK PHOS 120 U/L (45-117)
[2016-12-26] MEDS: SILVER SULFADIAZINE 1% TOP CREAM 50 GM JAR TP SCH (09:26)
[2016-12-26] MEDS: LOSARTAN POTASSIUM 25 MG TABLET PO SCH (09:26)
[2016-12-26] MEDS: RIVAROXABAN 20 MG TABLET PO SCH (09:26)
[2016-12-26] MEDS: METOPROLOL TARTRATE 50 MG TABLET (FP) PO SCH ×2 (09:26→22:12)
[2016-12-26] MEDS: FUROSEMIDE 40 MG TABLET (FP) PO SCH (09:26)
--- NOTE | 2016-12-26 10:48 | PN ---
Progress Note, Physician Chief Complaint: Not in distress History of Present Illness: Patient was seen and examined. Awake and alert. Chart was reviewed Denies chest pain, SOB or palpitations - Current Medication List Current Medications: Active Medications Furosemide (Lasix -) 40 mg PO DAILY [facility] Last Admin: 12/26/16 09:26 Dose: 40 mg Ertapenem 1 gm/ Sodium (Chloride) 50 mls @ 50 mls/hr IVPB DAILY [facility] PRN Reason: Protocol Last Admin: 12/25/16 09:42 Dose: 50 mls/hr Vancomycin HCl 1,250 mg/ (Dextrose) 250 mls @ 166.667 mls/hr IVPB BID [facility] PRN Reason: Protocol Last Admin: 12/25/16 22:16 Dose: 166.667 mls/hr Insulin Aspart (Novolog Vial Sliding Scale -) 1 vial SQ ACHS [facility] PRN Reason: Protocol Last Admin: 12/26/16 06:07 Dose: Not Given Losartan Potassium (Cozaar -) 25 mg PO DAILY [facility] Last Admin: 12/26/16 09:26 Dose: 25 mg Methadone HCl 40 mg/ Methadone (HCl 30 mg) 70 mg PO DAILY@0600 [facility] Last Admin: 12/26/16 06:04 Dose: 70 mg Metoprolol Tartrate (Lopressor -) 50 mg PO BID [facility] Last Admin: 12/26/16 09:26 Dose: 50 mg Nystatin (Nystatin Oral Suspension -) 500,000 units PO Q6HPO [facility] Last Admin: 12/26/16 06:04 Dose: 500,000 units Rivaroxaban (Xarelto -) 20 mg PO DAILY [facility] Last Admin: 12/26/16 09:26 Dose: 20 mg Silver Sulfadiazine (Silvadene -) 1 applic TP DAILY [facility] Last Admin: 12/26/16 09:26 Dose: 1 applic - Objective Vital Signs: Vital Signs Temperature 98.1 F 12/26/16 05:52 Pulse Rate 61 12/26/16 05:52 Respiratory Rate 20 12/26/16 05:52 Blood Pressure 159/78 12/26/16 05:52 O2 Sat by Pulse Oximetry (%) 93 L 12/25/16 21:00 Neck: Yes: Supple Cardiovascular: Yes: Regular Rate and Rhythm, S1, S2 Respiratory: Yes: CTA Bilaterally Gastrointestinal: Yes: Normal Bowel Sounds, Soft. No: Tenderness Edema: Yes Edema: LLE: 1+, RLE: 1+ Wound/Incision: Yes: Dressing Dry and Intact Additional Findings/Remarks: - Review of Systems Constitutional: denies: Fever. denies: Chills Cardiovascular: denies: Chest Pain. denies: Palpitations, Shortness of Breath Respiratory: denies: Cough, Hemoptysis, Orthopnea, PND, SOB Gastrointestinal: denies: Diarrhea. denies: Abdominal Pain, Constipation, Melena, Nausea, Rectal Bleeding, Vomiting Genitourinary: denies: Dysuria Neurological: denies: Dizziness, Headache, Syncope, Tremors Labs: CBC, BMP 12/26/16 06:00 12/26/16 06:00 Problem List - Problems (1) Atrial fibrillation with rapid ventricular response Code(s): I48.91 - UNSPECIFIED ATRIAL FIBRILLATION (2) CHF (congestive heart failure) Code(s): I50.9 - HEART FAILURE, UNSPECIFIED Qualifiers: Congestive heart failure type: diastolic Congestive heart failure chronicity: acute on chronic Qualified Code(s): I50.33 - Acute on chronic diastolic (congestive) heart failure (3) Cellulitis Code(s): L03.90 - CELLULITIS, UNSPECIFIED Qualifiers: Site of cellulitis of extremity: lower extremity Laterality: unspecified laterality (4) Diastolic dysfunction Code(s): I51.9 - HEART DISEASE, UNSPECIFIED (5) Methadone dependence Code(s): F11.20 - OPIOID DEPENDENCE, UNCOMPLICATED (6) PAD (peripheral artery disease) Code(s): I73.9 - PERIPHERAL VASCULAR DISEASE, UNSPECIFIED (7) Pre-operative cardiovascular examination, high risk surgery Code(s): Z01.810 - ENCOUNTER FOR PREPROCEDURAL CARDIOVASCULAR EXAMINATION Assessment/Plan 1. Paroxysmal atrial fibrillation with RVR now sinus bradycardia 2. PAD with distal aortic occlusion and common and external iliac artery occlusion. Bilateral lower ext ulcers 3. Cellulitis 4. CAD 5. LV diastolic dysfunction 6. Opiate dependence 7. Non-compliance PLAN: 1. Hold Xarelto pre-op, should wait 2 days off to safely proceed and resume post operatively 2. Continue Lopressor 50 mg bid 3. May proceed with aorto-bifemoral bypass as outlined 4. Empiric antibiotic course and wound care 5. Continue Lasix 40 mg qd, Losartan 25 mg qd and uptitrate as hemodynamics tolerate Further plans are to follow Dorian Figueroa M.D.
--- NOTE | 2016-12-26 11:33 | PN ---
Progress Note (short form) - Note Progress Note: Subjective: The patient was seen and examined at the bedside, he is eager to have his aorto bi-femoral procedure Per vascular, will schedule procedure for early next week, will need date to decide when to stop xarelto Current Medications Generic Name Dose Route Start Last Admin Trade Name Freq PRN Reason Stop Dose Admin Furosemide 40 mg 12/25/16 10:00 12/26/16 09:26 Lasix - PO 40 mg DAILY [facility] Administration Ertapenem 1 gm/ Sodium 50 mls @ 50 mls/hr 12/22/16 20:45 12/25/16 09:42 Chloride IVPB 50 mls/hr DAILY [facility] Administration Protocol Vancomycin HCl 1,250 mg/ 250 mls @ 166.667 mls/hr 12/25/16 22:00 12/25/16 22:16 Dextrose IVPB 166.667 mls/hr BID [facility] Administration Protocol Insulin Aspart 1 vial 12/23/16 22:00 12/26/16 06:07 Novolog Vial Sliding Scale - SQ Not Given ACHS [facility] Protocol Losartan Potassium 25 mg 12/25/16 14:15 12/26/16 09:26 Cozaar - PO 25 mg DAILY [facility] Administration Methadone HCl 40 mg/ Methadone 70 mg 12/23/16 06:00 12/26/16 06:04 HCl 30 mg PO 70 mg DAILY@0600 [facility] Administration Metoprolol Tartrate 50 mg 12/22/16 22:00 12/26/16 09:26 Lopressor - PO 50 mg BID [facility] Administration Nystatin 500,000 units 12/22/16 18:00 12/26/16 06:04 Nystatin Oral Suspension - PO 500,000 units Q6HPO [facility] Administration Rivaroxaban 20 mg 12/25/16 10:00 12/26/16 09:26 Xarelto - PO 20 mg DAILY [facility] Administration Silver Sulfadiazine 1 applic 12/22/16 16:45 12/26/16 09:26 Silvadene - TP 1 applic DAILY [facility] Administration Objective: Vital Signs Period Temp Pulse Resp BP Sys/Chatterjee Pulse Ox Last 24 Hr 97.9 F-98.9 F 54-62 18-20 104-159/52-96 93-96 Physical Exam: General: NAD, A&Ox3 HEENT: Poor dentition Lungs: CTA bilaterally Heart: RRR, S1S2 Abd: Soft, non-tender, non-distended. Normoactive bowel sounds Ext: B/l lower extremity wounds, erythema, with drainage. + edema bilaterally CBCD WBC 10.5 K/mm3 (4.0-10.0) H 12/26/16 06:00 RBC 4.41 M/mm3 (4.00-5.60) 12/26/16 06:00 Hgb 13.3 GM/dL (11.7-16.9) 12/26/16 06:00 Hct 40.1 % (35.4-49) 12/26/16 06:00 MCV 90.9 fl (80-96) 12/26/16 06:00 MCHC 33.1 g/dl (32.0-35.9) 12/26/16 06:00 RDW 16.1 % (11.9-15.9) H 12/26/16 06:00 Plt Count 240 K/MM3 (134-434) 12/26/16 06:00 MPV 9.0 fl (7.5-11.1) 12/26/16 06:00 CMP Sodium 139 mmol/L (136-145) 12/26/16 06:00 Potassium 4.5 mmol/L (3.5-5.1) 12/26/16 06:00 Chloride 101 mmol/L (98-107) 12/26/16 06:00 Carbon Dioxide 29 mmol/L (21-32) 12/26/16 06:00 Anion Gap 9 (8-16) 12/26/16 06:00 BUN 9 mg/dL (7-18) D 12/26/16 06:00 Creatinine 0.6 mg/dL (0.7-1.3) L 12/26/16 06:00 Creat Clearance w eGFR > 60 (>60) 12/26/16 06:00 Random Glucose 109 mg/dL (74-106) H 12/26/16 06:00 Calcium 9.2 mg/dL (8.5-10.1) 12/26/16 06:00 Total Bilirubin 0.5 mg/dL (0.2-1.0) D 12/26/16 06:00 AST 24 U/L (15-37) 12/26/16 06:00 ALT 36 U/L (12-78) 12/26/16 06:00 Alkaline Phosphatase 120 U/L (45-117) H 12/26/16 06:00 Total Protein 6.4 g/dl (6.4-8.2) 12/26/16 06:00 Albumin 3.0 g/dl (3.4-5.0) L 12/26/16 06:00 CARDIAC ENZYMES Creatine Kinase 45 IU/L (39-308) 12/22/16 11:40 Troponin I 0.02 ng/ml (0.00-0.05) 12/22/16 11:40 Microbiology 12/24/16 15:30 Blood - Peripheral Venous Blood Culture - Preliminary NO GROWTH OBTAINED AFTER 24 HOURS, INCUBATION TO CONTINUE FOR 4 DAYS. 12/24/16 16:00 Blood - Peripheral Venous Blood Culture - Preliminary NO GROWTH OBTAINED AFTER 24 HOURS, INCUBATION TO CONTINUE FOR 4 DAYS. 12/22/16 09:00 Blood - Peripheral Venous Blood Culture - Final Staphylococcus Aureus Enterococcus Casseliflavus Aerococcus Viridans 12/22/16 09:00 Blood - Peripheral Venous Blood Culture - Preliminary Pending Organism Assessment: This is a 61 year old male with PMHx of newly diagnosed a.fib (on Xarelto), CHF, HTN, PAD R>L and venous ulcerations to b/l lower ext, opioid dependence (on methadone for 5 years for heroin) admitted with bilateral wound cellulitis with weeping and A fib with RVR. Plan: 1) Cardiology: A.fib with RVR - Self converted to sinus rhythm - Continue Xarelto (will need to hold for 2 days prior to procedure (aorto bi- femoral bypass not scheduled yet) - Continue Lopressor - TSH wnl Diastolic dysfunction - ECHO 12/23 with normal LV size and function. RV normal size. Mod MR, mild TR - Lasix 40mg daily - Started on Losartan 25mg po daily - Stress test with small size, mild intensity reversible defect of inferior wall from base to mid consistent with mild ischemia, LVEF 71% - Appreciate cardiology consult 2) Vascular: PAD - CTA with distal aorta occlusion, common and external iliac artery occlusion - For aorto-bifemoral bypass to restore circulation next week, date undetermined - Appreciate vascular surgery consult 3) ID: B/l lower extremity cellulitis/venous stasis wounds - Blood culture as above, repeat blood cultures from 12/24 with NGTD - Continue Ertapenem (12/22- ) - Continue Vancomcyin (12/22- ), dose increased yesterday for trough of 1.5 - Silvadene and Sekou bandage daily - Appreciate ID consult 4) Endocrine: Newly diagnosed DM - BGM ACHS - ISS ACHS 5) Psych: Methadone dependence - Continue Methadone 70mg po daily 6) Dispo: - Requires continued inpatient care CODE STATUS: FULL CODE Visit type - Emergency Visit Emergency Visit: Yes ED Registration Date: 12/22/16 Care time: The patient presented to the Emergency Department on the above date and was hospitalized for further evaluation of their emergent condition. - New Patient This patient is new to me today: No - Critical Care Critical Care patient: No
[2016-12-26] MEDS: ERTAPENEM SODIUM 1 GM in SODIUM CHLORIDE 50 ML IVPB SCH (11:42)
[2016-12-26] MEDS: VANCOMYCIN 1,250 MG in DEXTROSE 5%-WATER - 250 ML IVPB SCH ×2 (11:45→22:12)
--- NOTE | 2016-12-26 15:14 | PN ---
Progress Note, Physician History of Present Illness: doing well no issues for surgery - Current Medication List Current Medications: Active Medications Furosemide (Lasix -) 40 mg PO DAILY [facility], [facility] Last Admin: 12/26/16 09:26 Dose: 40 mg Ertapenem 1 gm/ Sodium (Chloride) 50 mls @ 50 mls/hr IVPB DAILY [facility]1983 PRN Reason: Protocol Last Admin: 12/26/16 11:42 Dose: 50 mls/hr Vancomycin HCl 1,250 mg/ (Dextrose) 250 mls @ 166.667 mls/hr IVPB BID [facility] PRN Reason: Protocol Last Admin: 12/26/16 11:45 Dose: 166.667 mls/hr Insulin Aspart (Novolog Vial Sliding Scale -) 1 vial SQ ACHS [facility] PRN Reason: Protocol Last Admin: 12/26/16 11:48 Dose: Not Given Losartan Potassium (Cozaar -) 25 mg PO DAILY [facility] Last Admin: 12/26/16 09:26 Dose: 25 mg Methadone HCl 40 mg/ Methadone (HCl 30 mg) 70 mg PO DAILY@0600 [facility] Last Admin: 12/26/16 06:04 Dose: 70 mg Metoprolol Tartrate (Lopressor -) 50 mg PO BID [facility] Last Admin: 12/26/16 09:26 Dose: 50 mg Nystatin (Nystatin Oral Suspension -) 500,000 units PO Q6HPO [facility] Last Admin: 12/26/16 11:48 Dose: 500,000 units Rivaroxaban (Xarelto -) 20 mg PO DAILY [facility] Last Admin: 12/26/16 09:26 Dose: 20 mg Silver Sulfadiazine (Silvadene -) 1 applic TP DAILY [facility] Last Admin: 12/26/16 09:26 Dose: 1 applic - Objective Vital Signs: Vital Signs Temperature 98.1 F 12/26/16 05:52 Pulse Rate 57 L 12/26/16 10:00 Respiratory Rate 20 12/26/16 10:00 Blood Pressure 113/52 12/26/16 10:00 O2 Sat by Pulse Oximetry (%) 96 12/26/16 09:00 Constitutional: Yes: No Distress, Calm Cardiovascular: Yes: Regular Rate and Rhythm Respiratory: Yes: Regular, CTA Bilaterally Gastrointestinal: Yes: Normal Bowel Sounds, Soft Musculoskeletal: Yes: Other Extremities: Yes: Other Integumentary: Yes: Erythema, Other (draiange improving) Wound/Incision: Yes: Dressing Dry and Intact, Draining Neurological: Yes: Alert, Oriented Psychiatric: Yes: Alert, Oriented Labs: CBC, BMP 12/26/16 06:00 12/26/16 06:00 INR, PTT INR 1.17 (0.82-1.09) H 12/22/16 09:00 Assessment/Plan - Problems (1) Atrial fibrillation with rapid ventricular response Code(s): I48.91 - UNSPECIFIED ATRIAL FIBRILLATION (2) Cellulitis Code(s): L03.90 - CELLULITIS, UNSPECIFIED Qualifiers: Site of cellulitis of extremity: lower extremity Laterality: unspecified laterality (3) Methadone dependence Code(s): F11.20 - OPIOID DEPENDENCE, UNCOMPLICATED (4) PAD (peripheral artery disease) Code(s): I73.9 - PERIPHERAL VASCULAR DISEASE, UNSPECIFIED (5) Substance abuse Code(s): F19.10 - OTHER PSYCHOACTIVE SUBSTANCE ABUSE, UNCOMPLICATED (6) Diastolic dysfunction Code(s): I51.9 - HEART DISEASE, UNSPECIFIED wound infection plan continue current mgmt all cx noted stopped ertapenam should restart ertapenam when patient goes for surgery
[2016-12-27] MEDS: NYSTATIN 500,000 UNITS/5 ML SUSPENSION PO SCH ×4 (00:23→17:23)
[2016-12-27] MEDS: INSULIN SLIDING SCALE (NOVOLOG) 1 VIAL SQ SCH ×4 (06:28→21:21)
[2016-12-27] MEDS ORDERED: METHADONE HCL 10 MG TABLET ONE (06:30)
[2016-12-27] MEDS ORDERED: METHADONE HCL 40 MG DISPERSABLE TABLET ONE (06:30)
[2016-12-27] MEDS: METHADONE 40 MG, METHADONE 30 MG PO SCH (06:32)
[2016-12-27] MEDS: FUROSEMIDE 40 MG TABLET (FP) PO SCH (09:14)
[2016-12-27] MEDS: LOSARTAN POTASSIUM 25 MG TABLET PO SCH (09:14)
[2016-12-27] MEDS: RIVAROXABAN 20 MG TABLET PO SCH (09:14)
[2016-12-27] MEDS: METOPROLOL TARTRATE 50 MG TABLET (FP) PO SCH ×2 (09:14→21:22)
[2016-12-27] MEDS: SILVER SULFADIAZINE 1% TOP CREAM 50 GM JAR TP SCH (09:14)
[2016-12-27] MEDS: VANCOMYCIN 1,250 MG in DEXTROSE 5%-WATER - 250 ML IVPB SCH ×2 (09:25→22:29)
[2016-12-27 10:04] LABS: MCH 29.9 pg (25.7-33.7); MCHC 32.5 g/dl (32.0-35.9); MEAN PLT VOLUME 9.1 fl (7.5-11.1); PLATELET COUNT 226 K/MM3 (134-434); RDW 15.8 % (11.9-15.9); WHITE BLOOD COUNT 11.5 K/mm3 (4.0-10.0)
[2016-12-27 10:17] LABS: INR 1.4 (0.82-1.09); PROTHROMBIN TIME (PATIENT) 15.5 SEC (9.98-11.88)
[2016-12-27 10:20] LABS: ACTIVATED PTT 34.5 SECONDS (26.9-34.4)
[2016-12-27 10:32] LABS: ANION GAP 9 (8-16); CALCIUM 8.7 mg/dL (8.5-10.1); CO2 29 mmol/L (21-32); COCKROFT - GAULT 158.53; CREATININE 0.6 mg/dL (0.7-1.3); GLUCOSE,RANDOM 153 mg/dL (74-106)
[2016-12-27 10:35] LABS: ALK PHOS 112 U/L (45-117); BILIRUBIN,TOTAL 0.6 mg/dL (0.2-1.0); SGOT/AST 19 U/L (15-37); SGPT/ALT 29 U/L (12-78); TOT PROT 6.3 g/dl (6.4-8.2)
--- NOTE | 2016-12-27 11:26 | PN ---
Physical Exam: SUBJECTIVE: Patient seen and examined. He is oob to chair, he feels better than when he came in, he says his legs do not hurt. OBJECTIVE: Vital Signs Period Temp Pulse Resp BP Sys/Chatterjee Pulse Ox Last 24 Hr 98.2 F-98.7 F 55-70 18-20 112-127/69-80 96-97 PE Neuro: alert, awake, cn 2-12intact Pulm: CTAB CV: s1 s2 rrr no mrg Abd: s nt nd + bs Ext: b/l le erythema, + erythema, + wound drainage L>R, + le edema Skin: R arm dermatitis, dry CBCD WBC 11.5 K/mm3 (4.0-10.0) H 12/27/16 08:50 RBC 4.33 M/mm3 (4.00-5.60) 12/27/16 08:50 Hgb 12.9 GM/dL (11.7-16.9) 12/27/16 08:50 Hct 39.9 % (35.4-49) 12/27/16 08:50 MCV 92.0 fl (80-96) 12/27/16 08:50 MCHC 32.5 g/dl (32.0-35.9) 12/27/16 08:50 RDW 15.8 % (11.9-15.9) 12/27/16 08:50 Plt Count 226 K/MM3 (134-434) 12/27/16 08:50 MPV 9.1 fl (7.5-11.1) 12/27/16 08:50 CMP Sodium 137 mmol/L (136-145) 12/27/16 08:50 Potassium 4.3 mmol/L (3.5-5.1) 12/27/16 08:50 Chloride 99 mmol/L (98-107) 12/27/16 08:50 Carbon Dioxide 29 mmol/L (21-32) 12/27/16 08:50 Anion Gap 9 (8-16) 12/27/16 08:50 BUN 9 mg/dL (7-18) 12/27/16 08:50 Creatinine 0.6 mg/dL (0.7-1.3) L 12/27/16 08:50 Creat Clearance w eGFR > 60 (>60) 12/27/16 08:50 Calcium 8.7 mg/dL (8.5-10.1) 12/27/16 08:50 Total Bilirubin 0.6 mg/dL (0.2-1.0) 12/27/16 08:50 AST 19 U/L (15-37) D 12/27/16 08:50 ALT 29 U/L (12-78) 12/27/16 08:50 Alkaline Phosphatase 112 U/L (45-117) 12/27/16 08:50 Total Protein 6.3 g/dl (6.4-8.2) L 12/27/16 08:50 Albumin 3.0 g/dl (3.4-5.0) L 12/27/16 08:50 12/23/16 12/23/16 12/25/16 05:40 05:40 05:38 Hemoglobin A1c % 8.6 H Triglycerides 87 Cholesterol 145 Total LDL Cholesterol 90 HDL Cholesterol 45 Vancomycin Trough 1.500 L* 12/27/16 08:50 Hemoglobin A1c % Triglycerides Cholesterol Total LDL Cholesterol HDL Cholesterol Vancomycin Trough 35.724 H* D Active Medications Generic Name Dose Route Start Last Admin Trade Name Freq PRN Reason Stop Dose Admin Furosemide 40 mg 12/25/16 10:00 12/27/16 09:14 Lasix - PO 40 mg DAILY [facility] Administration Vancomycin HCl 1,250 mg/ 250 mls @ 166.667 mls/hr 12/25/16 22:00 12/27/16 09:25 Dextrose IVPB 166.667 mls/hr BID [facility] Administration Protocol Insulin Aspart 1 vial 12/23/16 22:00 12/27/16 11:06 Novolog Vial Sliding Scale - SQ Not Given ACHS [facility] Protocol Losartan Potassium 25 mg 12/25/16 14:15 12/27/16 09:14 Cozaar - PO 25 mg DAILY [facility] Administration Methadone HCl 40 mg/ Methadone 70 mg 12/23/16 06:00 12/27/16 06:32 HCl 30 mg PO 70 mg DAILY@0600 [facility] Administration Metoprolol Tartrate 50 mg 12/22/16 22:00 12/27/16 09:14 Lopressor - PO 50 mg BID [facility] Administration Nystatin 500,000 units 12/22/16 18:00 12/27/16 11:06 Nystatin Oral Suspension - PO 500,000 units Q6HPO [facility] Administration Rivaroxaban 20 mg 04/28/17 10:00 12/27/16 09:14 Xarelto - PO 20 mg DAILY [facility] Administration Silver Sulfadiazine 1 applic 12/22/16 16:45 12/27/16 09:14 Silvadene - TP 1 applic DAILY [facility] Administration Imaging: - Stress test with small size, mild intensity reversible defect of inferior wall from base to mid consistent with mild ischemia, LVEF 71% Antibiotics - Ertapenem (12/22- 12/26) Assessment: 61 year old male with PMHx of newly diagnosed a.fib (on Xarelto), CHF, HTN, PAD R>L and venous ulcerations to b/l lower ext, opioid dependence ( on methadone for 5 years for heroin) admitted with bilateral wound cellulitis with weeping and A fib with RVR. Plan: 1. A.fib with RVR - Now in SR, self converted - Stop Xarelto starting tomorrow, hold x48hr for procedure Wednesday - Continue Lopressor 2. B/l lower extremity cellulitis/venous stasis wounds - Repeat vanco trough tonight; goal 15-20, do not give HS dose of vanco until level resulted; AM dose results ?error - Vancomcyin BID (12/22- ) - Restart Ertapenem Wednesday morning, emperic tx for planned procedure - Silvadene and Sekou bandage daily 3. PAD - CTA with distal aorta occlusion, common and external iliac artery occlusion - For aorto-bifemoral bypass to restore circulation Wednesday - D/w Dr. Cunningham 4. Diastolic dysfunction - ECHO 12/23 with normal LV size and function. RV normal size. Mod MR, mild TR - Lasix 40mg daily - Losartan 25mg daily 5. Newly diagnosed DM II - BGM, ISS ACHS - Metformin on discharge 6. Methadone dependence/substance abuse hx - Methadone 70mg po daily Problem List - Problems (1) Atrial fibrillation with rapid ventricular response Code(s): I48.91 - UNSPECIFIED ATRIAL FIBRILLATION (2) Cellulitis Code(s): L03.90 - CELLULITIS, UNSPECIFIED Qualifiers: Site of cellulitis of extremity: lower extremity Laterality: unspecified laterality (3) Skin breakdown Code(s): L90.9 - ATROPHIC DISORDER OF SKIN, UNSPECIFIED (4) CHF (congestive heart failure) Code(s): I50.9 - HEART FAILURE, UNSPECIFIED Qualifiers: Congestive heart failure type: diastolic Congestive heart failure chronicity: acute on chronic Qualified Code(s): I50.33 - Acute on chronic diastolic (congestive) heart failure (5) PAD (peripheral artery disease) Code(s): I73.9 - PERIPHERAL VASCULAR DISEASE, UNSPECIFIED (6) Methadone dependence Code(s): F11.20 - OPIOID DEPENDENCE, UNCOMPLICATED (7) Substance abuse Code(s): F19.10 - OTHER PSYCHOACTIVE SUBSTANCE ABUSE, UNCOMPLICATED Visit type - Emergency Visit Emergency Visit: Yes ED Registration Date: 12/22/16 Care time: The patient presented to the Emergency Department on the above date and was hospitalized for further evaluation of their emergent condition. - New Patient This patient is new to me today: No - Critical Care Critical Care patient: No
--- NOTE | 2016-12-27 13:21 | PN ---
Progress Note, Physician Chief Complaint: Not in distress History of Present Illness: Patient was seen and examined. Awake and alert. Chart was reviewed Denies chest pain, SOB or palpitations - Current Medication List Current Medications: Active Medications Furosemide (Lasix -) 40 mg PO DAILY [facility] Last Admin: 12/27/16 09:14 Dose: 40 mg Vancomycin HCl 1,250 mg/ (Dextrose) 250 mls @ 166.667 mls/hr IVPB BID [facility] PRN Reason: Protocol Last Admin: 12/27/16 09:25 Dose: 166.667 mls/hr Insulin Aspart (Novolog Vial Sliding Scale -) 1 vial SQ ACHS [facility] PRN Reason: Protocol Last Admin: 12/27/16 11:06 Dose: Not Given Losartan Potassium (Cozaar -) 25 mg PO DAILY [facility] Last Admin: 12/27/16 09:14 Dose: 25 mg Methadone HCl 40 mg/ Methadone (HCl 30 mg) 70 mg PO DAILY@0600 [facility] Last Admin: 12/27/16 06:32 Dose: 70 mg Metoprolol Tartrate (Lopressor -) 50 mg PO BID [facility] Last Admin: 12/27/16 09:14 Dose: 50 mg Nystatin (Nystatin Oral Suspension -) 500,000 units PO Q6HPO [facility] Last Admin: 12/27/16 11:06 Dose: 500,000 units Rivaroxaban (Xarelto -) 20 mg PO DAILY [facility] Last Admin: 12/27/16 09:14 Dose: 20 mg Silver Sulfadiazine (Silvadene -) 1 applic TP DAILY [facility] Last Admin: 12/27/16 09:14 Dose: 1 applic - Objective Vital Signs: Vital Signs Temperature 98.7 F 12/27/16 09:45 Pulse Rate 61 12/27/16 09:45 Respiratory Rate 20 12/27/16 09:45 Blood Pressure 112/80 12/27/16 09:45 O2 Sat by Pulse Oximetry (%) 97 12/27/16 09:00 Neck: Yes: Supple Cardiovascular: Yes: Regular Rate and Rhythm, S1, S2 Respiratory: Yes: CTA Bilaterally Gastrointestinal: Yes: Normal Bowel Sounds, Soft. No: Tenderness Edema: Yes Edema: LLE: 1+, RLE: 1+ Wound/Incision: Yes: Dressing Dry and Intact Additional Findings/Remarks: - Review of Systems Constitutional: denies: Fever. denies: Chills Cardiovascular: denies: Chest Pain. denies: Palpitations, Shortness of Breath Respiratory: denies: Cough, Hemoptysis, Orthopnea, PND, SOB Gastrointestinal: denies: Diarrhea. denies: Abdominal Pain, Constipation, Melena, Nausea, Rectal Bleeding, Vomiting Genitourinary: denies: Dysuria Neurological: denies: Dizziness, Headache, Syncope, Tremors Labs: CBC, BMP 12/27/16 08:50 12/27/16 08:50 INR, PTT INR 1.40 (0.82-1.09) H 12/27/16 08:50 Problem List - Problems (1) Atrial fibrillation with rapid ventricular response Code(s): I48.91 - UNSPECIFIED ATRIAL FIBRILLATION (2) CHF (congestive heart failure) Code(s): I50.9 - HEART FAILURE, UNSPECIFIED Qualifiers: Congestive heart failure type: diastolic Congestive heart failure chronicity: acute on chronic Qualified Code(s): I50.33 - Acute on chronic diastolic (congestive) heart failure (3) Cellulitis Code(s): L03.90 - CELLULITIS, UNSPECIFIED Qualifiers: Site of cellulitis of extremity: lower extremity Laterality: unspecified laterality (4) Diastolic dysfunction Code(s): I51.9 - HEART DISEASE, UNSPECIFIED (5) Methadone dependence Code(s): F11.20 - OPIOID DEPENDENCE, UNCOMPLICATED (6) PAD (peripheral artery disease) Code(s): I73.9 - PERIPHERAL VASCULAR DISEASE, UNSPECIFIED (7) Pre-operative cardiovascular examination, high risk surgery Code(s): Z01.810 - ENCOUNTER FOR PREPROCEDURAL CARDIOVASCULAR EXAMINATION Assessment/Plan 1. Paroxysmal atrial fibrillation with RVR now with recurrence with RVR 2. PAD with distal aortic occlusion and common and external iliac artery occlusion. Bilateral lower extremity ulcers 3. Cellulitis 4. CAD 5. LV diastolic dysfunction 6. Opiate dependence 7. Non-compliance PLAN: 1. Hold Xarelto pre-op, should wait 2 days off to safely proceed and resume post operatively. Stopped today therefore tentative surgery on Wed 2. Increase Lopressor to 50 mg TID. Cardizem 10 mg IV one time dose for rate control 3. No absolute contraindication in proceeding with planned surgical intervention as outlined 4. Empiric antibiotic course and wound care 5. Continue Lasix 40 mg qd, Losartan 25 mg qd and uptitrate as hemodynamics tolerate Further plans are to follow Dorian Figueroa M.D.
--- NOTE | 2016-12-27 17:32 | PN ---
Progress Note, Physician History of Present Illness: stable legs looking better no complaints - Current Medication List Current Medications: Active Medications Furosemide (Lasix -) 40 mg PO DAILY [facility] Last Admin: 12/27/16 09:14 Dose: 40 mg Vancomycin HCl 1,250 mg/ (Dextrose) 250 mls @ 166.667 mls/hr IVPB BID [facility] PRN Reason: Protocol Last Admin: 12/27/16 09:25 Dose: 166.667 mls/hr Insulin Aspart (Novolog Vial Sliding Scale -) 1 vial SQ ACHS [facility] PRN Reason: Protocol Last Admin: 12/27/16 16:18 Dose: Not Given Losartan Potassium (Cozaar -) 25 mg PO DAILY [facility] Last Admin: 12/27/16 09:14 Dose: 25 mg Methadone HCl 40 mg/ Methadone (HCl 30 mg) 70 mg PO DAILY@0600 [facility] Last Admin: 12/27/16 06:32 Dose: 70 mg Metoprolol Tartrate (Lopressor -) 50 mg PO BID [facility] Last Admin: 12/27/16 09:14 Dose: 50 mg Nystatin (Nystatin Oral Suspension -) 500,000 units PO Q6HPO [facility] Last Admin: 12/27/16 17:23 Dose: 500,000 units Rivaroxaban (Xarelto -) 20 mg PO DAILY [facility] Last Admin: 12/27/16 09:14 Dose: 20 mg Silver Sulfadiazine (Silvadene -) 1 applic TP DAILY [facility] Last Admin: 12/27/16 09:14 Dose: 1 applic - Objective Vital Signs: Vital Signs Temperature 98.2 F 12/27/16 14:04 Pulse Rate 62 12/27/16 14:04 Respiratory Rate 20 12/27/16 14:04 Blood Pressure 130/73 12/27/16 14:04 O2 Sat by Pulse Oximetry (%) 97 12/27/16 09:00 Constitutional: Yes: No Distress, Calm Cardiovascular: Yes: S1, S2 Respiratory: Yes: Regular, CTA Bilaterally Gastrointestinal: Yes: Normal Bowel Sounds, Soft Musculoskeletal: Yes: Other Extremities: Yes: Erythema (resolving) Edema: LLE: Trace, RLE: Trace Integumentary: Yes: Erythema, Skin Tear, Other Wound/Incision: Yes: Draining (minimal) Neurological: Yes: Alert, Oriented Psychiatric: Yes: Alert, Oriented Labs: CBC, BMP 12/27/16 08:50 12/27/16 08:50 INR, PTT INR 1.40 (0.82-1.09) H 12/27/16 08:50 Assessment/Plan - Problems (1) Atrial fibrillation with rapid ventricular response Code(s): I48.91 - UNSPECIFIED ATRIAL FIBRILLATION (2) Cellulitis Code(s): L03.90 - CELLULITIS, UNSPECIFIED Qualifiers: Site of cellulitis of extremity: lower extremity Laterality: unspecified laterality (3) Methadone dependence Code(s): F11.20 - OPIOID DEPENDENCE, UNCOMPLICATED (4) PAD (peripheral artery disease) Code(s): I73.9 - PERIPHERAL VASCULAR DISEASE, UNSPECIFIED (5) Substance abuse Code(s): F19.10 - OTHER PSYCHOACTIVE SUBSTANCE ABUSE, UNCOMPLICATED (6) Diastolic dysfunction Code(s): I51.9 - HEART DISEASE, UNSPECIFIED wound infection plan continue current mgmt patient for surgery repeat blood cx negative await for [facility]
[2016-12-28] MEDS: NYSTATIN 500,000 UNITS/5 ML SUSPENSION PO SCH ×4 (00:41→17:41)
[2016-12-28] MEDS ORDERED: METHADONE HCL 10 MG TABLET ONE (06:24)
[2016-12-28] MEDS ORDERED: METHADONE HCL 40 MG DISPERSABLE TABLET ONE (06:24)
[2016-12-28] MEDS: INSULIN SLIDING SCALE (NOVOLOG) 1 VIAL SQ SCH ×4 (06:27→21:31)
[2016-12-28] MEDS: METHADONE 40 MG, METHADONE 30 MG PO SCH (06:28)
[2016-12-28 08:48] LABS: BASOPHIL 0.8 % (0-2.0); EOSINOPHIL 1.4 % (0-4.5); MCH 29.2 pg (25.7-33.7); MEAN CELL VOLUME 91.1 fl (80-96); MEAN PLT VOLUME 9.8 fl (7.5-11.1); NEUTROPHILS 71.1 % (42.8-82.8); PLATELET COUNT 220 K/MM3 (134-434); RDW 16.5 % (11.9-15.9); WHITE BLOOD COUNT 12.8 K/mm3 (4.0-10.0)
[2016-12-28] MEDS: LOSARTAN POTASSIUM 25 MG TABLET PO SCH (09:04)
[2016-12-28] MEDS: METOPROLOL TARTRATE 50 MG TABLET (FP) PO SCH ×3 (09:04→21:31)
[2016-12-28] MEDS: RIVAROXABAN 20 MG TABLET PO SCH (09:04)
[2016-12-28] MEDS: FUROSEMIDE 40 MG TABLET (FP) PO SCH (09:04)
[2016-12-28] MEDS: VANCOMYCIN 1,250 MG in DEXTROSE 5%-WATER - 250 ML IVPB SCH ×2 (10:57→21:31)
[2016-12-28] MEDS: SILVER SULFADIAZINE 1% TOP CREAM 50 GM JAR TP SCH (10:57)
[2016-12-28] MEDS ORDERED: dilTIAZem HCL 50 MG/10 ML - 10 ML VIAL IVPUSH ONE (11:31)
--- NOTE | 2016-12-28 11:32 | PN ---
Progress Note, Physician Chief Complaint: Not in distress History of Present Illness: Patient was seen and examined. Awake and alert. Chart was reviewed Denies chest pain, SOB or palpitations Recurrence of AF with RVR - Current Medication List Current Medications: Active Medications Diltiazem HCl (Cardizem Injection -) 10 mg IVPUSH ONCE ONE Stop: 12/28/16 11:32 Furosemide (Lasix -) 40 mg PO DAILY [facility]S [facility]CLUDE 234 BEDS AT THE [facility] Last Admin: 12/28/16 09:04 Dose: 40 mg Vancomycin HCl 1,250 mg/ (Dextrose) 250 mls @ 166.667 mls/hr IVPB BID [facility] PRN Reason: Protocol Last Admin: 12/28/16 10:57 Dose: 166.667 mls/hr Insulin Aspart (Novolog Vial Sliding Scale -) 1 vial SQ ACHS [facility]S [facility]CLUDE 234 BEDS AT THE [facility] PRN Reason: Protocol Last Admin: 12/28/16 06:27 Dose: Not Given Losartan Potassium (Cozaar -) 25 mg PO DAILY [facility]S INCLUDE 234 BEDS AT THE [facility] Last Admin: 12/28/16 09:04 Dose: 25 mg Methadone HCl 40 mg/ Methadone (HCl 30 mg) 70 mg PO DAILY@0600 COUNTS [facility]CLUDE 234 BEDS AT THE [facility] Last Admin: 12/28/16 06:28 Dose: 70 mg Nystatin (Nystatin Oral Suspension -) 500,000 units PO Q6HPO COUNTS [facility]CLUDE 234 BEDS AT THE [facility] Last Admin: 12/28/16 06:28 Dose: 500,000 units Silver Sulfadiazine (Silvadene -) 1 applic TP DAILY [facility]S [facility]CLUDE 234 BEDS AT THE [facility] Last Admin: 12/28/16 10:57 Dose: 1 applic - Objective Vital Signs: Vital Signs Temperature 97.3 F L 12/28/16 06:00 Pulse Rate 66 12/28/16 09:49 Respiratory Rate 20 12/28/16 09:49 Blood Pressure 114/60 12/28/16 09:49 O2 Sat by Pulse Oximetry (%) 96 12/28/16 09:00 Neck: Yes: Supple Cardiovascular: Yes: Tachycardia, Pulse Irregular, S1, S2 Respiratory: Yes: CTA Bilaterally Gastrointestinal: Yes: Normal Bowel Sounds, Soft. No: Tenderness Edema: Yes Edema: LLE: 1+, RLE: 1+ Integumentary: Yes: Erythema Additional Findings/Remarks: - Review of Systems Constitutional: denies: Fever. denies: Chills Cardiovascular: denies: Chest Pain. denies: Palpitations, Shortness of Breath Respiratory: denies: Cough, Hemoptysis, Orthopnea, PND, SOB Gastrointestinal: denies: Diarrhea. denies: Abdominal Pain, Constipation, Melena, Nausea, Rectal Bleeding, Vomiting Genitourinary: denies: Dysuria Neurological: denies: Dizziness, Headache, Syncope, Tremors Labs: CBC, BMP 12/28/16 05:35 12/27/16 08:50 INR, PTT INR 1.40 (0.82-1.09) H 12/27/16 08:50 Problem List - Problems (1) Atrial fibrillation with rapid ventricular response Code(s): I48.91 - UNSPECIFIED ATRIAL FIBRILLATION (2) CHF (congestive heart failure) Code(s): I50.9 - HEART FAILURE, UNSPECIFIED Qualifiers: Congestive heart failure type: diastolic Congestive heart failure chronicity: acute on chronic Qualified Code(s): I50.33 - Acute on chronic diastolic (congestive) heart failure (3) Cellulitis Code(s): L03.90 - CELLULITIS, UNSPECIFIED Qualifiers: Site of cellulitis of extremity: lower extremity Laterality: unspecified laterality (4) Diastolic dysfunction Code(s): I51.9 - HEART DISEASE, UNSPECIFIED (5) Methadone dependence Code(s): F11.20 - OPIOID DEPENDENCE, UNCOMPLICATED (6) PAD (peripheral artery disease) Code(s): I73.9 - PERIPHERAL VASCULAR DISEASE, UNSPECIFIED (7) Pre-operative cardiovascular examination, high risk surgery Code(s): Z01.810 - ENCOUNTER FOR PREPROCEDURAL CARDIOVASCULAR EXAMINATION Assessment/Plan 1. Paroxysmal atrial fibrillation with RVR recurrence of AF 2. PAD with distal aortic occlusion and common and external iliac artery occlusion. Bilateral lower extremity ulcers 3. Cellulitis 4. CAD 5. LV diastolic dysfunction 6. Opiate dependence 7. Non-compliance PLAN: 1. Hold Xarelto pre-op, should wait 2 days off to safely proceed and resume post operatively - given this am. Will hold for the next 2 days and surgery tentatively on Wed 2. Increase Lopressor 50 mg TID. Cardizem 10 mg IV given this am 3. May proceed with aorto-bifemoral bypass as outlined 4. Empiric antibiotic course and wound care 5. Continue Lasix 40 mg qd, Losartan 25 mg qd and uptitrate as hemodynamics tolerate Further plans are to follow Dorian Figueroa M.D.
--- NOTE | 2016-12-28 17:12 | PN ---
Physical Exam: SUBJECTIVE: Patient seen and examined. He has no acute complaints. He feels his wounds are improved. Events: - rapid a fib to 150's this am - cardizem 10mg ivp OBJECTIVE: Vital Signs Period Temp Pulse Resp BP Sys/Chatterjee Pulse Ox Last 24 Hr 97.3 F-99.2 F 62-102 20-20 108-130/60-72 95-96 PE Neuro: alert, awake, cn 2-12intact Pulm: CTAB CV: s1 s2 rrr no mrg Abd: s nt nd + bs Ext: b/l lower ext wound site- improving, wounds closed, no obvious drainage, mild erythema surrounding wounds CBCD WBC 12.8 K/mm3 (4.0-10.0) H 12/28/16 05:35 RBC 4.53 M/mm3 (4.00-5.60) 12/28/16 05:35 Hgb 13.2 GM/dL (11.7-16.9) 12/28/16 05:35 Hct 41.3 % (35.4-49) 12/28/16 05:35 MCV 91.1 fl (80-96) 12/28/16 05:35 MCHC 32.0 g/dl (32.0-35.9) 12/28/16 05:35 RDW 16.5 % (11.9-15.9) H 12/28/16 05:35 Plt Count 220 K/MM3 (134-434) 12/28/16 05:35 MPV 9.8 fl (7.5-11.1) 12/28/16 05:35 CMP Sodium 137 mmol/L (136-145) 12/27/16 08:50 Potassium 4.3 mmol/L (3.5-5.1) 12/27/16 08:50 Chloride 99 mmol/L (98-107) 12/27/16 08:50 Carbon Dioxide 29 mmol/L (21-32) 12/27/16 08:50 Anion Gap 9 (8-16) 12/27/16 08:50 BUN 9 mg/dL (7-18) 12/27/16 08:50 Creatinine 0.6 mg/dL (0.7-1.3) L 12/27/16 08:50 Creat Clearance w eGFR > 60 (>60) 12/27/16 08:50 Calcium 8.7 mg/dL (8.5-10.1) 12/27/16 08:50 Total Bilirubin 0.6 mg/dL (0.2-1.0) 12/27/16 08:50 AST 19 U/L (15-37) D 12/27/16 08:50 ALT 29 U/L (12-78) 12/27/16 08:50 Alkaline Phosphatase 112 U/L (45-117) 12/27/16 08:50 Total Protein 6.3 g/dl (6.4-8.2) L 12/27/16 08:50 Albumin 3.0 g/dl (3.4-5.0) L 12/27/16 08:50 Laboratory Tests 12/27/16 21:45 Vancomycin Trough 12.242 H D Active Medications Generic Name Dose Route Start Last Admin Trade Name Freq PRN Reason Stop Dose Admin Furosemide 40 mg 12/25/16 10:00 12/28/16 09:04 Lasix - PO 40 mg DAILY DOMINIC Administration Vancomycin HCl 1,250 mg/ 250 mls @ 166.667 mls/hr 12/25/16 22:00 12/28/16 10:57 Dextrose IVPB 166.667 mls/hr BID DOMINIC Administration Protocol Insulin Aspart 1 vial 12/23/16 22:00 12/28/16 12:19 Novolog Vial Sliding Scale - SQ 10 units ACHS DOMINIC Administration Protocol Losartan Potassium 25 mg 12/25/16 14:15 12/28/16 09:04 Cozaar - PO 25 mg DAILY DOMINIC Administration Methadone HCl 40 mg/ Methadone 70 mg 12/23/16 06:00 12/28/16 06:28 HCl 30 mg PO 70 mg DAILY@0600 DOMINIC Administration Metoprolol Tartrate 50 mg 12/28/16 14:00 12/28/16 13:40 Lopressor - PO 50 mg TID DOMINIC Administration Nystatin 500,000 units 12/22/16 18:00 12/28/16 12:31 Nystatin Oral Suspension - PO 500,000 units Q6HPO DOMINIC Administration Silver Sulfadiazine 1 applic 12/22/16 16:45 12/28/16 10:57 Silvadene - TP 1 applic DAILY DOMINIC Administration Imaging: - Stress test with small size, mild intensity reversible defect of inferior wall from base to mid consistent with mild ischemia, LVEF 71% - ECHO 12/23 with normal LV size and function. RV normal size. Mod MR, mild TR Antibiotics - Ertapenem (12/22- 12/26) Assessment: 61 year old male with PMHx of newly diagnosed a.fib (on Xarelto), CHF, HTN, PAD R>L and venous ulcerations to b/l lower ext, opioid dependence ( on methadone for 5 years for heroin) admitted with bilateral wound cellulitis with weeping and A fib with RVR, to which he self converted. Plan: 1. PAF, recent a fib - Recurrence of A fib this AM - Increase Lopressor 50 TID - Hold xaralto for procedure Wednesday 2. B/l lower extremity cellulitis/venous stasis wounds - Vancomcyin BID (12/22- ) trough goal 15-20 - Restart Ertapenem 1gm tomorrow AM - Silvadene and Sekou bandage daily 3. PAD - CTA with distal aorta occlusion, common and external iliac artery occlusion - For aorto-bifemoral bypass to restore circulation Wednesday 4. Diastolic dysfunction - Lasix 40mg daily - Losartan 25mg daily 5. Newly diagnosed DM II - BGM, ISS ACHS - Metformin on discharge 6. Methadone dependence/substance abuse hx - Methadone 70mg po daily Problem List - Problems (1) Atrial fibrillation with rapid ventricular response Code(s): I48.91 - UNSPECIFIED ATRIAL FIBRILLATION (2) Cellulitis Code(s): L03.90 - CELLULITIS, UNSPECIFIED Qualifiers: Site of cellulitis of extremity: lower extremity Laterality: unspecified laterality (3) Skin breakdown Code(s): L90.9 - ATROPHIC DISORDER OF SKIN, UNSPECIFIED (4) CHF (congestive heart failure) Code(s): I50.9 - HEART FAILURE, UNSPECIFIED Qualifiers: Congestive heart failure type: diastolic Congestive heart failure chronicity: acute on chronic Qualified Code(s): I50.33 - Acute on chronic diastolic (congestive) heart failure (5) PAD (peripheral artery disease) Code(s): I73.9 - PERIPHERAL VASCULAR DISEASE, UNSPECIFIED (6) Methadone dependence Code(s): F11.20 - OPIOID DEPENDENCE, UNCOMPLICATED (7) Substance abuse Code(s): F19.10 - OTHER PSYCHOACTIVE SUBSTANCE ABUSE, UNCOMPLICATED Visit type - Emergency Visit Emergency Visit: Yes ED Registration Date: 12/22/16 Care time: The patient presented to the Emergency Department on the above date and was hospitalized for further evaluation of their emergent condition. - New Patient This patient is new to me today: No - Critical Care Critical Care patient: No
--- NOTE | 2016-12-28 18:01 | PN ---
Progress Note, Physician History of Present Illness: stable legs looking better no complaints - Current Medication List Current Medications: Active Medications Furosemide (Lasix -) 40 mg PO DAILY [facility] Last Admin: 12/28/16 09:04 Dose: 40 mg Vancomycin HCl 1,250 mg/ (Dextrose) 250 mls @ 166.667 mls/hr IVPB BID DOMINIC PRN Reason: Protocol Last Admin: 12/28/16 10:57 Dose: 166.667 mls/hr Ertapenem 1 gm/ Sodium (Chloride) 50 mls @ 50 mls/hr IVPB DAILY DOMINIC PRN Reason: Protocol Insulin Aspart (Novolog Vial Sliding Scale -) 1 vial SQ ACHS DOMINIC PRN Reason: Protocol Last Admin: 12/28/16 17:21 Dose: Not Given Losartan Potassium (Cozaar -) 25 mg PO DAILY [facility] Last Admin: 12/28/16 09:04 Dose: 25 mg Methadone HCl 40 mg/ Methadone (HCl 30 mg) 70 mg PO DAILY@0600 [facility] Last Admin: 12/28/16 06:28 Dose: 70 mg Metoprolol Tartrate (Lopressor -) 50 mg PO TID [facility] Last Admin: 12/28/16 13:40 Dose: 50 mg Nystatin (Nystatin Oral Suspension -) 500,000 units PO Q6HPO [facility] Last Admin: 12/28/16 17:41 Dose: 500,000 units Silver Sulfadiazine (Silvadene -) 1 applic TP DAILY [facility] Last Admin: 12/28/16 10:57 Dose: 1 applic - Objective Vital Signs: Vital Signs Temperature 99.2 F 12/28/16 14:00 Pulse Rate 67 12/28/16 14:00 Respiratory Rate 20 12/28/16 14:00 Blood Pressure 117/68 12/28/16 14:00 O2 Sat by Pulse Oximetry (%) 96 12/28/16 09:00 Constitutional: Yes: No Distress, Calm Cardiovascular: Yes: Regular Rate and Rhythm Respiratory: Yes: Regular, CTA Bilaterally Gastrointestinal: Yes: Normal Bowel Sounds, Soft Musculoskeletal: Yes: Other Extremities: Yes: Other Wound/Incision: Yes: Other (wounds healing well) Neurological: Yes: Alert, Oriented Psychiatric: Yes: Alert, Oriented Labs: CBC, BMP 12/28/16 05:35 12/27/16 08:50 INR, PTT INR 1.40 (0.82-1.09) H 12/27/16 08:50 Assessment/Plan - Problems (1) Atrial fibrillation with rapid ventricular response Code(s): I48.91 - UNSPECIFIED ATRIAL FIBRILLATION (2) Cellulitis Code(s): L03.90 - CELLULITIS, UNSPECIFIED Qualifiers: Site of cellulitis of extremity: lower extremity Laterality: unspecified laterality (3) Methadone dependence Code(s): F11.20 - OPIOID DEPENDENCE, UNCOMPLICATED (4) PAD (peripheral artery disease) Code(s): I73.9 - PERIPHERAL VASCULAR DISEASE, UNSPECIFIED (5) Substance abuse Code(s): F19.10 - OTHER PSYCHOACTIVE SUBSTANCE ABUSE, UNCOMPLICATED (6) Diastolic dysfunction Code(s): I51.9 - HEART DISEASE, UNSPECIFIED wound infection plan continue current mgmt patient for surgery julia gonzalez noted patient for surgery continue wound care
[2016-12-28] MEDS ORDERED: MAG HYDROX/AL HYDROX/SIMETH 30 ML UNIT-DOSE CUP PO ONE (20:43)
[2016-12-29] MEDS: NYSTATIN 500,000 UNITS/5 ML SUSPENSION PO SCH ×4 (00:31→18:46)
[2016-12-29] MEDS: INSULIN SLIDING SCALE (NOVOLOG) 1 VIAL SQ SCH ×4 (06:19→21:33)
[2016-12-29] MEDS ORDERED: METHADONE HCL 40 MG DISPERSABLE TABLET ONE (06:21)
[2016-12-29] MEDS ORDERED: METHADONE HCL 10 MG TABLET ONE (06:21)
[2016-12-29] MEDS: METHADONE 40 MG, METHADONE 30 MG PO SCH (06:23)
[2016-12-29] MEDS: METOPROLOL TARTRATE 50 MG TABLET (FP) PO SCH ×3 (06:23→14:06)
[2016-12-29] MEDS: VANCOMYCIN 1,250 MG in DEXTROSE 5%-WATER - 250 ML IVPB SCH ×2 (09:30→21:33)
--- NOTE | 2016-12-29 09:34 | PN ---
Progress Note, Physician History of Present Illness: stable no issues comfortable surgery tomorrow - Current Medication List Current Medications: Active Medications Furosemide (Lasix -) 40 mg PO DAILY [facility] Last Admin: 12/28/16 09:04 Dose: 40 mg Vancomycin HCl 1,250 mg/ (Dextrose) 250 mls @ 166.667 mls/hr IVPB BID DOMINIC PRN Reason: Protocol Last Admin: 12/28/16 21:31 Dose: 166.667 mls/hr Ertapenem 1 gm/ Sodium (Chloride) 50 mls @ 50 mls/hr IVPB DAILY [facility] PRN Reason: Protocol Insulin Aspart (Novolog Vial Sliding Scale -) 1 vial SQ ACHS DOMINIC PRN Reason: Protocol Last Admin: 12/29/16 06:19 Dose: Not Given Losartan Potassium (Cozaar -) 25 mg PO DAILY [facility] Last Admin: 12/28/16 09:04 Dose: 25 mg Methadone HCl 40 mg/ Methadone (HCl 30 mg) 70 mg PO DAILY@0600 [facility] Last Admin: 12/29/16 06:23 Dose: 70 mg Metoprolol Tartrate (Lopressor -) 50 mg PO TID [facility] Last Admin: 12/29/16 06:51 Dose: 50 mg Nystatin (Nystatin Oral Suspension -) 500,000 units PO Q6HPO [facility] Last Admin: 12/29/16 06:23 Dose: 500,000 units Silver Sulfadiazine (Silvadene -) 1 applic TP DAILY [facility] Last Admin: 12/28/16 10:57 Dose: 1 applic - Objective Vital Signs: Vital Signs Temperature 98.5 F 12/29/16 06:00 Pulse Rate 52 L 12/29/16 06:00 Respiratory Rate 20 12/29/16 06:00 Blood Pressure 112/45 12/29/16 06:00 O2 Sat by Pulse Oximetry (%) 95 12/28/16 21:00 Constitutional: Yes: No Distress, Calm Cardiovascular: Yes: Regular Rate and Rhythm Respiratory: Yes: Regular, CTA Bilaterally Gastrointestinal: Yes: Normal Bowel Sounds, Soft Musculoskeletal: Yes: Other Extremities: Yes: Other (wounds healing well) Integumentary: Yes: Skin Tear, Venous Stasis Changes, Other Wound/Incision: Yes: Dressing Dry and Intact Neurological: Yes: Alert, Oriented Psychiatric: Yes: Alert, Oriented Labs: CBC, BMP 12/28/16 05:35 12/27/16 08:50 INR, PTT INR 1.40 (0.82-1.09) H 12/27/16 08:50 Assessment/Plan - Problems (1) Atrial fibrillation with rapid ventricular response Code(s): I48.91 - UNSPECIFIED ATRIAL FIBRILLATION (2) Cellulitis Code(s): L03.90 - CELLULITIS, UNSPECIFIED Qualifiers: Site of cellulitis of extremity: lower extremity Laterality: unspecified laterality (3) Methadone dependence Code(s): F11.20 - OPIOID DEPENDENCE, UNCOMPLICATED (4) PAD (peripheral artery disease) Code(s): I73.9 - PERIPHERAL VASCULAR DISEASE, UNSPECIFIED (5) Substance abuse Code(s): F19.10 - OTHER PSYCHOACTIVE SUBSTANCE ABUSE, UNCOMPLICATED (6) Diastolic dysfunction Code(s): I51.9 - HEART DISEASE, UNSPECIFIED wound infection plan continue current mgmt patient for surgery start ertapenam on surgery day with vanco rest as per primary team
--- NOTE | 2016-12-29 09:38 | PN ---
Progress Note (short form) - Note Progress Note: Chief Complaint: Events noted notes reviewed, denies any chest pain or dyspnea History of Present Illness: Seen and examined on telemetry. Events noted notes reviewed, denies any chest pain or dyspnea Sinus rhythm is noted, if atrial fibrillation recurs recommend initiation of antiarrhythmics therapy (Amiodarone or Betapace) - Current Medication List Current Medications Furosemide (Lasix -) 40 mg PO DAILY [facility] Last Admin: 12/28/16 09:04 Dose: 40 mg Vancomycin HCl 1,250 mg/ (Dextrose) 250 mls @ 166.667 mls/hr IVPB BID DOMINIC PRN Reason: Protocol Last Admin: 12/28/16 21:31 Dose: 166.667 mls/hr Ertapenem 1 gm/ Sodium (Chloride) 50 mls @ 50 mls/hr IVPB DAILY DOMINIC PRN Reason: Protocol Insulin Aspart (Novolog Vial Sliding Scale -) 1 vial SQ ACHS DOMINIC PRN Reason: Protocol Last Admin: 12/29/16 06:19 Dose: Not Given Losartan Potassium (Cozaar -) 25 mg PO DAILY [facility] Last Admin: 12/28/16 09:04 Dose: 25 mg Methadone HCl 40 mg/ Methadone (HCl 30 mg) 70 mg PO DAILY@0600 [facility] Last Admin: 12/29/16 06:23 Dose: 70 mg Metoprolol Tartrate (Lopressor -) 50 mg PO TID [facility] Last Admin: 12/29/16 06:51 Dose: 50 mg Nystatin (Nystatin Oral Suspension -) 500,000 units PO Q6HPO [facility] Last Admin: 12/29/16 06:23 Dose: 500,000 units Silver Sulfadiazine (Silvadene -) 1 applic TP DAILY [facility] Last Admin: 12/28/16 10:57 Dose: 1 applic - Review of Systems Cardiovascular: As noted above Respiratory: denies: denies: Cough or Sputum Production Gastrointestinal: denies: Nausea, Vomiting, Diarrhea, Constipation or Abdominal Discomfort Musculoskeletal: No Symptoms Reported Endocrine: No Symptoms Reported - Objective Vital Signs: Last Vital Signs Temp Pulse Resp BP Pulse Ox 98.5 F 52 L 20 112/45 95 12/29/16 06:00 12/29/16 06:00 12/29/16 06:00 12/29/16 06:00 12/28/16 21:00 Intake & Output 0412/27/16 12/28/16 12/29/16 23:59 23:59 23:59 23:59 Intake Total 1120 1060 640 0 Output Total 150 Balance 1120 910 640 0 Weight 193 lb 2 oz 191 lb 2 oz 190 lb 12.8 oz 192 lb 0.8 oz Neck: Supple Negtaive JVD No Bruit Cardiovascular: S1 S2 Regular Rate Rhythm Respiratory: Clear to A&P Bilaterally Gastrointestinal: Soft Benign Normal Bowel Sounds Ext: Edema Bilaterally Labs: CBC, BMP 12/28/16 05:35 12/27/16 08:50 Hepatic Panel Total Bilirubin 0.6 mg/dL (0.2-1.0) 12/27/16 08:50 AST 19 U/L (15-37) D 12/27/16 08:50 ALT 29 U/L (12-78) 12/27/16 08:50 Alkaline Phosphatase 112 U/L (45-117) 12/27/16 08:50 Albumin 3.0 g/dl (3.4-5.0) L 12/27/16 08:50 Assessment/Plan ASSESSMENT: 1. Paroxysmal atrial fibrillation currently in sinus rhythm [id number] score of 2 2. CAD angina pectoris 3. LV diastolic dysfunction with chronic class 0-I NYHA classification LV failure 4. 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 Bilateral lower extremity ulcers/cellulitis 6. Non-compliance PLAN: 1. A/C on hold (Xarelto) pre-op, should be resumed post operatively 2. Continue Lopressor 3. Continue Cozaar 4. Plan to proceed with aorto-bifemoral bypass, in am, there are no absolute contraindications in proceeding with the above planned procedure considering that there is no clinical evidence of ACS and/or de-compensated congestive heart failure and/or malignant ventricular arrhythmia 5. Antibiotic as per the primary team Araceli Brownlee M.D.
[2016-12-29] MEDS: FUROSEMIDE 40 MG TABLET (FP) PO SCH (10:18)
[2016-12-29] MEDS: LOSARTAN POTASSIUM 25 MG TABLET PO SCH (10:18)
[2016-12-29] MEDS: SILVER SULFADIAZINE 1% TOP CREAM 50 GM JAR TP SCH (10:18)
[2016-12-29] MEDS: ERTAPENEM SODIUM 1 GM in SODIUM CHLORIDE 50 ML IVPB SCH (11:00)
--- NOTE | 2016-12-29 11:35 | SPA.PREOP ---
- PRE-OP NOTE Dx: Distal aorta occlusion, with common and external iliac artery occlusion Planned Procedure: Aorto-bifemoral bypass Surgeon: Ronnie Cunningham & Javier Ruiz Consent: To be obtained by surgeon after risks, benefits and alternatives explained to patient. Last Vital Signs Temp Pulse Resp BP Pulse Ox 98.5 F 52 L 20 112/45 95 12/29/16 06:00 12/29/16 06:00 12/29/16 06:00 12/29/16 06:00 12/28/16 21:00 CBC, BMP 12/28/16 05:35 12/27/16 08:50 INR, PTT INR 1.40 (0.82-1.09) H 12/27/16 08:50 - IMAGING Chest X-ray: Report Reviewed Cat Scan: Report Reviewed Other: Report Reviewed (Myocardial perfusion scan) - ASSESSMENT/PLAN 1. Make NPO after midnight except po meds 2. GI/DVT PPX 3. Medical optimization / clearance 4. Cell Saver ordered 5. Type and Screen 6. 4 PRBC on hold for OR 7. Cardio cleared 8. Xarelto held and will resume post-operatively Visit type - Case Type Case Type: ED Admission
--- NOTE | 2016-12-29 16:20 | PN ---
Physical Exam: SUBJECTIVE: Patient seen and examined. He is tired he does not sleep well at night. Events: - Bradycardia HR 50's this afternoon OBJECTIVE: Vital Signs Period Temp Pulse Resp BP Sys/Chatterjee Pulse Ox Last 24 Hr 98.3 F-98.7 F 52-67 20-20 98-133/45-70 95 PE Neuro: alert, awake, cn 2-12intact Pulm: CTAB CV: s1 s2 rrr no mrg Abd: s nt nd + bs Ext: b/l lower ext wound site- improving, wounds closed, no obvious drainage, mild erythema surrounding wounds Skin: b/l UE dry skin dried lesions to arms Laboratory Results - last 24 hr 12/28/16 12/29/16 12/29/16 21:27 05:15 10:19 POC Glucometer 175 108 Vancomycin Trough 12.483 H D Blood Type Antibody Screen 12/29/16 12/29/16 12/29/16 12:20 12:30 13:51 POC Glucometer 151 Vancomycin Trough Blood Type O POSITIVE O POSITIVE Antibody Screen Negative 12/29/16 15:35 POC Glucometer 122 Vancomycin Trough Blood Type Antibody Screen Active Medications Generic Name Dose Route Start Last Admin Trade Name Freq PRN Reason Stop Dose Admin Furosemide 40 mg 12/25/16 10:00 12/29/16 10:18 Lasix - PO 40 mg DAILY DOMINIC Administration Vancomycin HCl 1,250 mg/ 250 mls @ 166.667 mls/hr 12/25/16 22:00 12/29/16 09:30 Dextrose IVPB 166.667 mls/hr BID DOMINIC Administration Protocol Ertapenem 1 gm/ Sodium 50 mls @ 50 mls/hr 12/29/16 10:00 12/29/16 11:00 Chloride IVPB 50 mls/hr DAILY DOMINIC Administration Protocol Insulin Aspart 1 vial 12/23/16 22:00 12/29/16 13:00 Novolog Vial Sliding Scale - SQ 2 units ACHS ODMINIC Administration Protocol Losartan Potassium 25 mg 12/25/16 14:15 12/29/16 10:18 Cozaar - PO 25 mg DAILY DOMINIC Administration Methadone HCl 40 mg/ Methadone 70 mg 12/23/16 06:00 12/29/16 06:23 HCl 30 mg PO 70 mg DAILY@0600 DOMINIC Administration Metoprolol Tartrate 50 mg 12/28/16 14:00 12/29/16 14:06 Lopressor - PO Not Given TID DOMINIC Nystatin 500,000 units 12/22/16 18:00 12/29/16 13:00 Nystatin Oral Suspension - PO 500,000 units Q6HPO DOMINIC Administration Silver Sulfadiazine 1 applic 12/22/16 16:45 12/29/16 10:18 Silvadene - TP Not Given DAILY DOMINIC Imaging: - Stress test with small size, mild intensity reversible defect of inferior wall from base to mid consistent with mild ischemia, LVEF 71% - ECHO 12/23 with normal LV size and function. RV normal size. Mod MR, mild TR Assessment: 61 year old male with PMHx of newly diagnosed a.fib (on Xarelto), CHF, HTN, PAD R>L and venous ulcerations to b/l lower ext, opioid dependence ( on methadone for 5 years for heroin) admitted with bilateral wound cellulitis with weeping and A fib with RVR, to which he self converted. Plan: 1. PAF, recent a fib - In sinus, bradycardic this afternoon, PM lopressor held - Lopressor 50 TID - Hold xaralto for procedure tomorrow 2. B/l lower extremity cellulitis/venous stasis wounds - Vancomcyin BID (12/22- ) trough goal 15-20 - Ertapenem 1gm daily - Silvadene and Sekou bandage daily 3. PAD - CTA with distal aorta occlusion, common and external iliac artery occlusion - For aorto-bifemoral bypass to restore circulation tomorrow 4. Diastolic dysfunction - Lasix 40mg daily - Losartan 25mg daily 5. Newly diagnosed DM II - BGM, ISS ACHS - Metformin on discharge 6. Methadone dependence/substance abuse hx - Methadone 70mg po daily 7. FEN - NPO after midnight except meds 8. Insomnia - Benadryl 25mg HS Problem List - Problems (1) Atrial fibrillation with rapid ventricular response Code(s): I48.91 - UNSPECIFIED ATRIAL FIBRILLATION (2) Cellulitis Code(s): L03.90 - CELLULITIS, UNSPECIFIED Qualifiers: Site of cellulitis of extremity: lower extremity Laterality: unspecified laterality (3) Skin breakdown Code(s): L90.9 - ATROPHIC DISORDER OF SKIN, UNSPECIFIED (4) CHF (congestive heart failure) Code(s): I50.9 - HEART FAILURE, UNSPECIFIED Qualifiers: Congestive heart failure type: diastolic Congestive heart failure chronicity: acute on chronic Qualified Code(s): I50.33 - Acute on chronic diastolic (congestive) heart failure (5) PAD (peripheral artery disease) Code(s): I73.9 - PERIPHERAL VASCULAR DISEASE, UNSPECIFIED (6) Methadone dependence Code(s): F11.20 - OPIOID DEPENDENCE, UNCOMPLICATED (7) Substance abuse Code(s): F19.10 - OTHER PSYCHOACTIVE SUBSTANCE ABUSE, UNCOMPLICATED Visit type - Emergency Visit Emergency Visit: Yes ED Registration Date: 12/22/16 Care time: The patient presented to the Emergency Department on the above date and was hospitalized for further evaluation of their emergent condition. - New Patient This patient is new to me today: No - Critical Care Critical Care patient: No
[2016-12-29] MEDS ORDERED: diphenhydrAMINE HCL 25 MG CAPSULE (FP) PO SCH (22:00)
[2016-12-30] MEDS: NYSTATIN 500,000 UNITS/5 ML SUSPENSION PO SCH ×3 (00:09→12:26)
[2016-12-30] MEDS: METOPROLOL TARTRATE 50 MG TABLET (FP) PO SCH ×3 (00:10→21:39)
[2016-12-30] MEDS: METHADONE 40 MG, METHADONE 30 MG PO SCH ×2 (06:07→10:28)
[2016-12-30] MEDS: INSULIN SLIDING SCALE (NOVOLOG) 1 VIAL SQ SCH ×3 (06:08→22:03)
[2016-12-30] MEDS ORDERED: MIDAZOLAM HCL 2 MG/2 ML SINGLE DOSE VIAL ONE ×2 (09:05→17:17)
[2016-12-30] MEDS ORDERED: ePHEDrine SULFATE 50 MG/1 ML AMPULE ONE (09:09)
--- NOTE | 2016-12-30 09:56 | PN ---
Progress Note, Physician History of Present Illness: PMD: Trisha Rodas Remains in sinus rhythm with PAC, underwent pre-op P-Myoview showing small mild inferior ischemia with preserved LVEF 71%. He denies exertional chest pain or dyspnea, mostly exertional claudication bilaterally, planned for aorto- bifemoral bypass today. - Current Medication List Current Medications: Active Medications Diphenhydramine HCl (Benadryl -) 25 mg PO HS [facility] Last Admin: 12/30/16 00:03 Dose: Not Given Furosemide (Lasix -) 40 mg PO DAILY [facility] Last Admin: 12/29/16 10:18 Dose: 40 mg Vancomycin HCl 1,250 mg/ (Dextrose) 250 mls @ 166.667 mls/hr IVPB BID [facility] PRN Reason: Protocol Last Admin: 12/29/16 21:33 Dose: 166.667 mls/hr Ertapenem 1 gm/ Sodium (Chloride) 50 mls @ 50 mls/hr IVPB DAILY [facility] PRN Reason: Protocol Last Admin: 12/29/16 11:00 Dose: 50 mls/hr Insulin Aspart (Novolog Vial Sliding Scale -) 1 vial SQ ACHS DOMINIC PRN Reason: Protocol Last Admin: 12/30/16 06:08 Dose: Not Given Losartan Potassium (Cozaar -) 25 mg PO DAILY [facility] Last Admin: 12/29/16 10:18 Dose: 25 mg Methadone HCl 40 mg/ Methadone (HCl 30 mg) 70 mg PO DAILY@0600 [facility] Last Admin: 12/30/16 06:07 Dose: Not Given Metoprolol Tartrate (Lopressor -) 50 mg PO BID [facility] Nystatin (Nystatin Oral Suspension -) 500,000 units PO Q6HPO [facility] Last Admin: 12/30/16 06:07 Dose: Not Given Silver Sulfadiazine (Silvadene -) 1 applic TP DAILY [facility] Last Admin: 12/29/16 10:18 Dose: Not Given - Objective Vital Signs: Vital Signs Temperature 98.6 F 12/30/16 06:00 Pulse Rate 68 12/30/16 06:00 Respiratory Rate 19 12/30/16 06:00 Blood Pressure 100/73 12/30/16 06:00 O2 Sat by Pulse Oximetry (%) 97 12/29/16 21:00 Constitutional: Yes: No Distress, Calm Neck: Yes: Supple Cardiovascular: Yes: Regular Rate and Rhythm Respiratory: Yes: Regular, Diminished Gastrointestinal: Yes: Normal Bowel Sounds, Soft Edema: Yes Edema: LLE: 1+, RLE: 1+ Labs: CBC, BMP 12/28/16 05:35 12/27/16 08:50 INR, PTT INR 1.40 (0.82-1.09) H 12/27/16 08:50 - ....Imaging EKG: Report Reviewed (Tele: SR with PAC) Problem List - Problems (1) Atrial fibrillation with rapid ventricular response Code(s): I48.91 - UNSPECIFIED ATRIAL FIBRILLATION (2) Cellulitis Code(s): L03.90 - CELLULITIS, UNSPECIFIED Qualifiers: Qualified Code(s): L03.119 - Cellulitis of unspecified part of limb (3) Methadone dependence Code(s): F11.20 - OPIOID DEPENDENCE, UNCOMPLICATED (4) PAD (peripheral artery disease) Code(s): I73.9 - PERIPHERAL VASCULAR DISEASE, UNSPECIFIED (5) Substance abuse Code(s): F19.10 - OTHER PSYCHOACTIVE SUBSTANCE ABUSE, UNCOMPLICATED (6) Diastolic dysfunction Code(s): I51.9 - HEART DISEASE, UNSPECIFIED (7) Pre-operative cardiovascular examination, high risk surgery Code(s): Z01.810 - ENCOUNTER FOR PREPROCEDURAL CARDIOVASCULAR EXAMINATION Assessment/Plan 1. Paroxysmal atrial fibrillation currently in sinus rhythm [id number] score of 2 2. CAD angina pectoris 3. LV diastolic dysfunction with chronic class 0-I NYHA classification LV failure 4. 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 Bilateral lower extremity ulcers/cellulitis 6. Non-compliance PLAN: 1. A/C on hold (Xarelto) pre-op, should be resumed post operatively once hemostasis has been achieved 2. Continue Lopressor 50 bid 3. Continue Cozaar 25 qd 4. Plan to proceed with aorto-bifemoral bypass, in am, there are no absolute contraindications in proceeding with the above planned procedure considering that there is no clinical evidence of ACS and/or de-compensated congestive heart failure and/or malignant ventricular arrhythmia 5. Antibiotic course per the primary team
[2016-12-30] MEDS ORDERED: METOPROLOL TARTRATE 50 MG TABLET (FP) PO SCH (10:00)
--- NOTE | 2016-12-30 10:15 | PN ---
Physical Exam: SUBJECTIVE: Patient seen and examined. He felt he slept last night, he prefers to sleep in the chair. He is ready for his procedure today, denies dizziness, lightheadedness. Events: - Asymptomatic bradycardia on tele - Tele: sinus jayshree with pac OBJECTIVE: Vital Signs Period Temp Pulse Resp BP Sys/Chatterjee Pulse Ox Last 24 Hr 98.0 F-98.8 F 55-68 19-20 100-122/45-73 97 PE Neuro: alert, awake, cn 2-12 intact HEENT: poor dentition, dry red inferior sclera Pulm: CTAB CV: s1 s2 rrr no mrg Abd: s nt nd + bs Ext: b/l lower ext wounds closed, no obvious drainage, mild erythema surrounding wounds, +1 edema Skin: b/l UE dry skin dried lesions to arms Laboratory Results - last 24 hr 12/29/16 12/29/16 12/29/16 10:19 12:20 12:30 POC Glucometer 151 Vancomycin Trough 12.483 H D Blood Type O POSITIVE Antibody Screen Negative Crossmatch 12/29/16 12/29/16 12/29/16 13:51 15:35 21:25 POC Glucometer 122 275 Vancomycin Trough Blood Type O POSITIVE Antibody Screen Crossmatch See Detail 12/30/16 06:02 POC Glucometer 124 Vancomycin Trough Blood Type Antibody Screen Crossmatch Active Medications Generic Name Dose Route Start Last Admin Trade Name Pierreq PRN Reason Stop Dose Admin Diphenhydramine HCl 25 mg 12/29/16 22:00 12/30/16 00:03 Benadryl - PO Not Given HS [facility]IC Furosemide 40 mg 12/25/16 10:00 12/29/16 10:18 Lasix - PO 40 mg DAILY [facility] Administration Vancomycin HCl 1,250 mg/ 250 mls @ 166.667 mls/hr 12/25/16 22:00 12/29/16 21:33 Dextrose IVPB 166.667 mls/hr BID [facility] Administration Protocol Ertapenem 1 gm/ Sodium 50 mls @ 50 mls/hr 12/29/16 10:00 12/29/16 11:00 Chloride IVPB 50 mls/hr DAILY [facility] Administration Protocol Insulin Aspart 1 vial 12/23/16 22:00 12/30/16 06:08 Novolog Vial Sliding Scale - SQ Not Given ACHS [facility] Protocol Losartan Potassium 25 mg 12/25/16 14:15 12/29/16 10:18 Cozaar - PO 25 mg DAILY [facility] Administration Methadone HCl 40 mg/ Methadone 70 mg 12/23/16 06:00 12/30/16 06:07 HCl 30 mg PO Not Given DAILY@0600 [facility] Metoprolol Tartrate 50 mg 12/30/16 10:00 Lopressor - PO BID [facility] Nystatin 500,000 units 12/22/16 18:00 12/30/16 06:07 Nystatin Oral Suspension - PO Not Given Q6HPO [facility] Silver Sulfadiazine 1 applic 12/22/16 16:45 12/29/16 10:18 Silvadene - TP Not Given DAILY [facility] Imaging: - Stress test with small size, mild intensity reversible defect of inferior wall from base to mid consistent with mild ischemia, LVEF 71% - ECHO 12/23 with normal LV size and function. RV normal size. Mod MR, mild TR Assessment: 61 year old male with PMHx of newly diagnosed a.fib (on Xarelto), CHF, HTN, PAD R>L and venous ulcerations to b/l lower ext, opioid dependence ( on methadone for 5 years for heroin) admitted with bilateral wound cellulitis with weeping and A fib with RVR, to which he self converted. Plan: 1. PAD w/ distal aorta and external iliac occlusion - For aorto-bifemoral bypass to restore circulation today 2. PAF, A fib with RVR - Decrease lopressor 50 BID for bradycardia - Resume Xaralto per surgery 3. B/l lower extremity cellulitis/venous stasis wounds - Vancomcyin BID (12/22- ) trough goal 15-20 - Ertapenem 1gm daily (12/29-) - Silvadene and Sekou bandage daily 4. Diastolic dysfunction - Lasix 40mg daily - Losartan 25mg daily 5. Newly diagnosed DM II - BGM, ISS ACHS - Metformin on discharge 6. Methadone dependence/substance abuse hx - Methadone 70mg po daily 7. FEN - Resume sodium/fat controlled after surgery 8. Insomnia - Benadryl 25mg HS Problem List - Problems (1) Atrial fibrillation with rapid ventricular response Code(s): I48.91 - UNSPECIFIED ATRIAL FIBRILLATION (2) Cellulitis Code(s): L03.90 - CELLULITIS, UNSPECIFIED Qualifiers: Site of cellulitis of extremity: lower extremity Laterality: unspecified laterality (3) Skin breakdown Code(s): L90.9 - ATROPHIC DISORDER OF SKIN, UNSPECIFIED (4) CHF (congestive heart failure) Code(s): I50.9 - HEART FAILURE, UNSPECIFIED Qualifiers: Congestive heart failure type: diastolic Congestive heart failure chronicity: acute on chronic Qualified Code(s): I50.33 - Acute on chronic diastolic (congestive) heart failure (5) PAD (peripheral artery disease) Code(s): I73.9 - PERIPHERAL VASCULAR DISEASE, UNSPECIFIED (6) Methadone dependence Code(s): F11.20 - OPIOID DEPENDENCE, UNCOMPLICATED (7) Substance abuse Code(s): F19.10 - OTHER PSYCHOACTIVE SUBSTANCE ABUSE, UNCOMPLICATED Visit type - Emergency Visit Emergency Visit: Yes ED Registration Date: 12/22/16 Care time: The patient presented to the Emergency Department on the above date and was hospitalized for further evaluation of their emergent condition. - New Patient This patient is new to me today: No - Critical Care Critical Care patient: No
[2016-12-30] MEDS ORDERED: METHADONE HCL 10 MG TABLET ONE (10:24)
[2016-12-30] MEDS ORDERED: METHADONE HCL 40 MG DISPERSABLE TABLET ONE (10:25)
[2016-12-30] MEDS: LOSARTAN POTASSIUM 25 MG TABLET PO SCH (10:27)
[2016-12-30] MEDS: FUROSEMIDE 40 MG TABLET (FP) PO SCH (10:28)
[2016-12-30] MEDS: SILVER SULFADIAZINE 1% TOP CREAM 50 GM JAR TP SCH (10:28)
[2016-12-30] MEDS: ERTAPENEM SODIUM 1 GM in SODIUM CHLORIDE 50 ML IVPB SCH (10:31)
[2016-12-30] MEDS: VANCOMYCIN 1,250 MG in DEXTROSE 5%-WATER - 250 ML IVPB SCH ×2 (10:45→21:39)
[2016-12-30] MEDS ORDERED: LIDOCAINE HCL 1%, 10 MG/ML (20ML VIAL) ONE (11:21)
[2016-12-30] MEDS ORDERED: ROPIVACAINE HCL 0.5% 30ML VIAL ONE (11:21)
[2016-12-30] MEDS ORDERED: HEPARIN NA (PORCINE) 5,000 UNITS/ML 1ML VIAL ONE ×3 (11:58→14:40)
[2016-12-30] MEDS ORDERED: VANCOMYCIN 1,000 MG VIAL (RESTRICTED TO ID ONLY) IVPB ONE (12:45)
[2016-12-30] MEDS ORDERED: VANCOMYCIN 1 GRAM (PRE-DOCKED) 1,000 MG/250 ML BAG IVPB ONE (12:45)
[2016-12-30] MEDS ORDERED: NITROGLYCERIN 50 MG/10 ML VIAL IVPB ONE (12:54)
[2016-12-30] MEDS ORDERED: ROCURONIUM BROMIDE 50 MG/5 ML VIAL ONE ×3 (12:59→15:45)
[2016-12-30] MEDS ORDERED: HYDROmorphone HCL/PF 1 MG/ML VIAL (FOR PYXIS CHARGING ONLY) ONE ×2 (13:21→15:47)
[2016-12-30] MEDS ORDERED: DEXAMETHASONE SOD PHOSPHATE 4 MG/1 ML VIAL ONE (14:21)
[2016-12-30] MEDS ORDERED: MANNITOL 25% 12.5 GM/50 ML VIAL IVPB ONE (14:39)
[2016-12-30] MEDS ORDERED: PROPOFOL 20 ML ONE ×2 (14:49→17:53)
[2016-12-30] MEDS ORDERED: THROMBIN (BOVINE) 5,000 UNIT VIAL TP ONE ×2 (15:10→15:14)
[2016-12-30] MEDS ORDERED: GELATIN, ABSORBABLE 100 EACH SPONGE TP ONE (15:13)
--- NOTE | 2016-12-30 15:30 | PN ---
Progress Note, Physician History of Present Illness: stable no issues comfortable surgery tomorrow - Current Medication List Current Medications: Active Medications Diphenhydramine HCl (Benadryl -) 25 mg PO HS [facility] Last Admin: 12/30/16 00:03 Dose: Not Given Furosemide (Lasix -) 40 mg PO DAILY [facility] Last Admin: 12/30/16 10:28 Dose: Not Given Vancomycin HCl 1,250 mg/ (Dextrose) 250 mls @ 166.667 mls/hr IVPB BID [facility] PRN Reason: Protocol Last Admin: 12/30/16 10:45 Dose: Not Given Ertapenem 1 gm/ Sodium (Chloride) 50 mls @ 50 mls/hr IVPB DAILY [facility] PRN Reason: Protocol Last Admin: 12/30/16 10:31 Dose: 50 mls/hr Insulin Aspart (Novolog Vial Sliding Scale -) 1 vial SQ ACHS [facility] PRN Reason: Protocol Last Admin: 12/30/16 10:43 Dose: Not Given Losartan Potassium (Cozaar -) 25 mg PO DAILY [facility] Last Admin: 12/30/16 10:27 Dose: 25 mg Methadone HCl 40 mg/ Methadone (HCl 30 mg) 70 mg PO DAILY@0600 [facility] Last Admin: 12/30/16 10:28 Dose: 70 mg Metoprolol Tartrate (Lopressor -) 50 mg PO BID [facility] Last Admin: 12/30/16 10:28 Dose: Not Given Nystatin (Nystatin Oral Suspension -) 500,000 units PO Q6HPO [facility] Last Admin: 12/30/16 12:26 Dose: Not Given Silver Sulfadiazine (Silvadene -) 1 applic TP DAILY [facility] Last Admin: 12/30/16 10:28 Dose: Not Given - Objective Vital Signs: Vital Signs Temperature 98.6 F 12/30/16 06:00 Pulse Rate 68 12/30/16 06:00 Respiratory Rate 19 12/30/16 06:00 Blood Pressure 100/73 12/30/16 06:00 O2 Sat by Pulse Oximetry (%) 97 12/29/16 21:00 Constitutional: Yes: No Distress, Calm Cardiovascular: Yes: Regular Rate and Rhythm Respiratory: Yes: Regular, CTA Bilaterally Gastrointestinal: Yes: Normal Bowel Sounds, Soft Musculoskeletal: Yes: Other Extremities: Yes: Other Wound/Incision: Yes: Dressing Dry and Intact, Other Neurological: Yes: Alert, Oriented Psychiatric: Yes: Alert Labs: CBC, BMP 12/28/16 05:35 12/27/16 08:50 INR, PTT INR 1.40 (0.82-1.09) H 12/27/16 08:50 Assessment/Plan - Problems (1) Atrial fibrillation with rapid ventricular response Code(s): I48.91 - UNSPECIFIED ATRIAL FIBRILLATION (2) Cellulitis Code(s): L03.90 - CELLULITIS, UNSPECIFIED Qualifiers: Site of cellulitis of extremity: lower extremity Laterality: unspecified laterality (3) Methadone dependence Code(s): F11.20 - OPIOID DEPENDENCE, UNCOMPLICATED (4) PAD (peripheral artery disease) Code(s): I73.9 - PERIPHERAL VASCULAR DISEASE, UNSPECIFIED (5) Substance abuse Code(s): F19.10 - OTHER PSYCHOACTIVE SUBSTANCE ABUSE, UNCOMPLICATED (6) Diastolic dysfunction Code(s): I51.9 - HEART DISEASE, UNSPECIFIED wound infection plan continue current mgmt patient for surgery start ertapenam on surgery day with vanco rest as per primary team
[2016-12-30] MEDS ORDERED: NEOSTIGMINE METHYLSULFATE 0.5 MG/ML - 10 ML MDV ONE (16:36)
[2016-12-30] MEDS ORDERED: GLYCOPYRROLATE 0.2 MG/1 ML VIAL ONE (16:37)
[2016-12-30] MEDS ORDERED: POVIDONE-IODINE OINTMENT 10% - 28.4 GM TUBE ONE (16:52)
--- NOTE | 2016-12-30 17:04 | OP ---
Operative Note - Note: Operative Date: 12/30/16 Pre-Operative Diagnosis: Aortic occlusion Operation: Aorto-bifemoral bypass Post-Operative Diagnosis: Same as Pre-op Surgeon: Ronnie Cunningham Middleware Systems Architect: Javier Ruiz Anesthesia: General Estimated Blood Loss (mls): 400 Blood Volume Replaced (mls): 200 Operative Report Dictated: Yes
[2016-12-30] MEDS ORDERED: FUROSEMIDE 40 MG/4 ML INJECTABLE VIAL ONE (17:47)
[2016-12-30] MEDS ORDERED: ALBUTEROL SO4 6.7 GM HFA INHALER IH ONE ×2 (18:17→18:18)
[2016-12-30] MEDS: LACTATED RINGERS SOLUTION 1,000 ML IV SCH ×2 (18:30→18:45)
[2016-12-30] MEDS ORDERED: ONDANSETRON 4 MG/2 ML VIAL IVPUSH PRN (18:52)
[2016-12-30] MEDS ORDERED: HYDROmorphone HCL CARPU-JECT 1 MG/1 ML DISP.SYRIN IVPUSH PRN (18:52)
[2016-12-30 19:14] LABS: ARTERIAL BLD GAS O2 SATURATION 91.1 % (90-98.9); ARTERIAL BLOOD GAS BASE EXCESS -9.3 meq/l (-2-2); ARTERIAL BLOOD GAS HCO3 17.1 meq/L (22-26); ARTERIAL BLOOD GAS PO2 70.6 mmHg (80-100)
[2016-12-30 19:15] LABS: MCH 29.5 pg (25.7-33.7); MCHC 32.2 g/dl (32.0-35.9); MEAN CELL VOLUME 91.7 fl (80-96); MEAN PLT VOLUME 9.8 fl (7.5-11.1); PLATELET COUNT 191 K/MM3 (134-434); RDW 16.1 % (11.9-15.9); WHITE BLOOD COUNT 21.6 K/mm3 (4.0-10.0)
[2016-12-30 19:16] LABS: ART PUNCT SITE ARTERIAL LINE; PT. ON O2? YES
[2016-12-30 19:17] LABS: LPM/O2% 100%; TYPE OF O2 NON-REBREATHER
[2016-12-30 19:18] LABS: ARTERIAL BLOOD GAS pH 7.24 (7.35-7.45)
[2016-12-30] MEDS: diphenhydrAMINE HCL 25 MG CAPSULE (FP) PO SCH (21:40)
[2016-12-30 21:50] LABS: PLATELET ESTIMATE ADEQUATE (NORMAL)
[2016-12-30] MEDS: morphine CARPU-JECT 4 MG/1 ML DISP.SYRIN IVPUSH PRN (21:50)
--- NOTE | 2016-12-30 22:23 | CONSULT ---
Consult - text type - Consultation Consultation Note: PULM/CCM Seen and examined in ICU Surgeon: Ty Cunningham Operation: Aorto-Fem bypass CC: leg pain HPI: 61 year old male with Afib (on xaralto) CHF, HTN, PAD R>L and chronic b/l venous ulcerations, opioid dependence on methadone replacement. Presented with weakness, worsening leg pain/caudication and worsening venous stasis ulcerations. Admitted and workup revealed worsening of know aorto-fem occlusion. Cleared by cardiology for surgery given recurrent afib and treated for polymicrobial bacteremia prior to undergoing surgery today. Anticoagulation held for 48hrs prior to operation. Pt had uneventful surgery, was extubated in PACU, had warm and pusitile bilateral LE. LE pain has improved. Pt brought to ICU from PACU for overnight observation. Current Active Problems Problem Status Diagnosed Atrial fibrillation with rapid ventricular response Acute CHF (congestive heart failure) Acute Cellulitis Acute Diastolic dysfunction Acute Methadone dependence Acute PAD (peripheral artery disease) Acute Pre-operative cardiovascular examination, high risk surgery Acute Skin breakdown Acute Substance abuse Acute Home Medications Medication Instructions Recorded Aspirin [ASA -] 81 mg PO DAILY 12/22/16 Digoxin [Lanoxin -] 0.25 mg PO DAILY 12/22/16 Diltiazem Cd [Cardizem Cd -] 180 mg PO BID 12/22/16 Furosemide [Lasix -] 40 mg PO DAILY 12/22/16 Methadone [Dolophine -] 70 mg PO DAILY 12/22/16 Metoprolol Tartrate [Lopressor -] 50 mg PO BID 12/22/16 Rivaroxaban [Xarelto -] 20 mg PO DAILY 12/22/16 Past Medical History Cardio/Vascular AFIB,CHF,HTN Psych Depression Smoking History Smoking history Current every day smoker Aproximately how many 10 cigarettes per day Alcohol/Substance Use Hx Alcohol Use No History of Substance Use Heroin Social History ADL Independent History of Recent Travel No Vital Signs Temp 97.6 F 12/30/16 20:20 Pulse 74 12/30/16 20:20 Resp 12 12/30/16 21:00 BP 105/69 12/30/16 20:20 Pulse Ox 98 12/30/16 21:00 Intake & Output 12/29/16 12/30/16 12/30/16 23:59 11:59 23:59 Intake Total 270 5510 535 Output Total 2700 Balance 270 5510 -2165 Weight 85.899 kg Intake: IV 5510 400 lfa 10 IVPB 270 Blood Product 135 Output: Urine 2300 Estimated Blood Loss 400 Other: Voiding Method Urinal Indwelling Catheter Weight Measurement Method Standing Scale Current Medications Diphenhydramine HCl (Benadryl -) 25 mg PO HS [facility]S [facility]CLUDE 234 BEDS AT THE [facility] Last Admin: 12/30/16 21:40 Dose: Not Given Furosemide (Lasix -) 40 mg PO DAILY [facility] 234 BEDS AT THE [facility] Lactated Ringer's (Lactated Ringers Solution) 1,000 mls @ 75 mls/hr IV ASDIR COUNTS INCLUDE 234 BEDS AT THE [facility] Last Admin: 12/30/16 18:30 Dose: 350 mls Ertapenem 1 gm/ Sodium (Chloride) 50 mls @ 50 mls/hr IVPB DAILY [facility] PRN Reason: Protocol Vancomycin HCl 1,250 mg/ (Dextrose) 250 mls @ 166.667 mls/hr IVPB BID [facility] PRN Reason: Protocol Last Admin: 12/30/16 21:39 Dose: 166.667 mls/hr Insulin Aspart (Novolog Vial Sliding Scale -) 1 vial SQ ACHS [facility] 234 BEDS AT THE [facility] PRN Reason: Protocol Last Admin: 12/30/16 22:03 Dose: 4 units Losartan Potassium (Cozaar -) 25 mg PO DAILY [facility] 234 BEDS AT THE [facility] Methadone HCl 40 mg/ Methadone (HCl 30 mg) 70 mg PO DAILY@0600 [facility] 234 BEDS AT THE [facility] Metoprolol Tartrate (Lopressor -) 50 mg PO BID [facility] 234 BEDS AT [facility] Last Admin: 12/30/16 21:39 Dose: Not Given Morphine Sulfate (Morphine Injection -) 4 mg IVPUSH Q4H PRN PRN Reason: PAIN Nystatin (Nystatin Oral Suspension -) 500,000 units PO Q6HPO [facility]S INCLUDE 234 BEDS AT THE [facility] Ondansetron HCl (Zofran Injection) 4 mg IVPUSH Q6H PRN PRN Reason: NAUSEA AND/OR VOMITING Stop: 12/31/16 00:53 Silver Sulfadiazine (Silvadene -) 1 applic TP DAILY [facility] 234 BEDS AT THE [facility] ROS;as per HPI. pt does not relate other symptoms prior to admission ERMIAS Neuro: alert, awake, no focal exam. MORE X 4 HEENT: EOMI, PERRL CV: s1 s2 rrr no mrg Abd: dressed surgical scar, hypoactive BS, no bleeding, mild pain to palpation Ext: b/l lower ext wchronic venous stasis changes, no obvious drainage, mild erythema surrounding wounds, +1 edema Skin: b/l UE dry skin dried lesions to arms Assessment: 61 year old male with PMHx of newly diagnosed a.fib (on Xarelto), CHF, HTN, PAD R>L and venous ulcerations to b/l lower ext, opioid dependence admitted with LE cellulitis, w/u revealing for significant aorto-fem occlusion now s/p aorto-fem bypass with Tosin in ICU for post op monitoring Plan: PAD w/ distal aorta and external iliac occlusion - s/p aorto-bifemoral bypass to restore circulation today PAF, A fib with RVR -resume xarelto tomorrow if w/o bleeding -rate control with BB 3. B/l lower extremity cellulitis/venous stasis wounds -being followed by ID - Vancomcyin BID (12/22- ) trough goal 15-20 - Ertapenem 1gm daily (12/29-) - Silvadene and Sekou bandage daily Heart failure with preserved EF - Lasix 40mg daily - Losartan 25mg daily DM II - BGM, ISS ACHS - Metformin on discharge Methadone dependence/substance abuse hx - Methadone 70mg po daily, restart in am - Resume sodium/fat controlled after surgery Hal Moore ACNP [id number] Consult Level [id number]
[2016-12-31] MEDS: NYSTATIN 500,000 UNITS/5 ML SUSPENSION PO SCH ×4 (00:13→21:50)
[2016-12-31] MEDS: morphine CARPU-JECT 4 MG/1 ML DISP.SYRIN IVPUSH PRN ×2 (03:23→20:39)
[2016-12-31] MEDS ORDERED: METHADONE HCL 10 MG TABLET ONE ×2 (05:24→08:30)
[2016-12-31] MEDS: METHADONE 40 MG, METHADONE 30 MG PO SCH ×2 (06:25→08:50)
[2016-12-31] MEDS: INSULIN SLIDING SCALE (NOVOLOG) 1 VIAL SQ SCH ×4 (06:26→22:12)
[2016-12-31 06:36] LABS: MCH 29.6 pg (25.7-33.7); MCHC 32.5 g/dl (32.0-35.9); MEAN PLT VOLUME 10.6 fl (7.5-11.1); PLATELET COUNT 193 K/MM3 (134-434); RDW 15.9 % (11.9-15.9); WHITE BLOOD COUNT 22.5 K/mm3 (4.0-10.0)
[2016-12-31 06:46] LABS: INR 1.22 (0.82-1.09); PROTHROMBIN TIME (PATIENT) 13.5 SEC (9.98-11.88)
[2016-12-31 06:58] LABS: ALBUMIN 2.4 g/dl (3.4-5.0); ANION GAP 9 (8-16); BILIRUBIN,TOTAL 0.4 mg/dL (0.2-1.0); CALCIUM 7.8 mg/dL (8.5-10.1); CO2 24 mmol/L (21-32); COCKROFT - GAULT 90.89; CREATININE 1.1 mg/dL (0.7-1.3); GLUCOSE,RANDOM 200 mg/dL (74-106); MAGNESIUM 1.4 mg/dL (1.8-2.4); PHOSPHOROUS 3.3 mg/dL (2.5-4.9); SGOT/AST 26 U/L (15-37); SGPT/ALT 20 U/L (12-78)
[2016-12-31 06:59] LABS: ALK PHOS 79 U/L (45-117); TOT PROT 5.2 g/dl (6.4-8.2)
[2016-12-31] MEDS ORDERED: MAGNESIUM SULF 50% (8.12 MEQ/2 ML-1 GM VIAL) IVPB ONE (08:30)
[2016-12-31] MEDS ORDERED: METHADONE HCL 40 MG DISPERSABLE TABLET ONE (08:31)
--- NOTE | 2016-12-31 09:05 | PN ---
Physical Exam: SUBJECTIVE: Patient seen and examined in the ICU. States he is having some abdominal discomfort/pain. Denies nausea/vomiting. OBJECTIVE: s/p aortic fem bypass on 12/30/16 absent bowel sounds +abdominal discomfort - mildly distended abd. Magnesium 1.4 - repleted with IV mag 2gram x 1 Vital Signs Period Temp Pulse Resp BP Sys/Chatterjee Pulse Ox Last 24 Hr 93 F-98.0 F 65-83 12-28 94-126/53-86 93-98 GENERAL: The patient is awake, alert, and fully oriented, in no acute distress. HEAD: Normal with no signs of trauma. NECK: Trachea midline, full range of motion, supple. LUNGS: Breath sounds equal, clear to auscultation bilaterally, no wheezes, no crackles, no accessory muscle use. ABDOMEN: s/p aorta fem bypass, abdomen slightly distended, NGT removed, hypoactive bowel sounds, +pain/discomfort of abd., dressing CDI NEUROLOGICAL: Normal speech, gait not observed. PSYCH: Normal mood, normal affect. Laboratory Results - last 24 hr 12/29/16 12/30/16 12/30/16 13:51 19:00 19:11 WBC 21.6 H D RBC 4.06 Hgb 12.0 Hct 37.3 MCV 91.7 MCHC 32.2 RDW 16.1 H Plt Count 191 MPV 9.8 Neutrophils % 86.0 H D Lymphocytes % 3.0 L D Monocytes % 6.0 Band Neutrophils 5.0 Platelet Estimate Adequate Platelet Comment No clumping noted INR Puncture Site Arterial line ABG pH 7.24 L* ABG pCO2 at Pt Temp 41.0 ABG pO2 at Pt Temp 70.6 L ABG HCO3 17.1 L ABG O2 Sat (Measured) 91.1 ABG O2 Content 13.3 L ABG Base Excess -9.3 L Naveen Test Not applicable O2 Delivery Device Non-rebreather Oxygen Flow Rate 100% PEEP 0.0 Sodium Potassium Chloride Carbon Dioxide Anion Gap BUN Creatinine Creat Clearance w eGFR POC Glucometer Random Glucose Calcium Phosphorus Magnesium Total Bilirubin AST ALT Alkaline Phosphatase Total Protein Albumin Blood Type O POSITIVE Crossmatch See Detail 12/30/16 12/31/16 12/31/16 19:26 05:35 05:35 WBC 22.5 H RBC 3.98 L Hgb 11.8 Hct 36.2 MCV 91.0 MCHC 32.5 RDW 15.9 Plt Count 193 MPV 10.6 Neutrophils % Y Lymphocytes % Y Monocytes % Band Neutrophils Platelet Estimate Platelet Comment INR 1.22 H Puncture Site ABG pH ABG pCO2 at Pt Temp ABG pO2 at Pt Temp ABG HCO3 ABG O2 Sat (Measured) ABG O2 Content ABG Base Excess Naveen Test O2 Delivery Device Oxygen Flow Rate PEEP Sodium Potassium Chloride Carbon Dioxide Anion Gap BUN Creatinine Creat Clearance w eGFR POC Glucometer 189 Random Glucose Calcium Phosphorus Magnesium Total Bilirubin AST ALT Alkaline Phosphatase Total Protein Albumin Blood Type Crossmatch 12/31/16 05:35 WBC RBC Hgb Hct MCV MCHC RDW Plt Count MPV Neutrophils % Lymphocytes % Monocytes % Band Neutrophils Platelet Estimate Platelet Comment INR Puncture Site ABG pH ABG pCO2 at Pt Temp ABG pO2 at Pt Temp ABG HCO3 ABG O2 Sat (Measured) ABG O2 Content ABG Base Excess Naveen Test O2 Delivery Device Oxygen Flow Rate PEEP Sodium 138 Potassium 4.1 Chloride 105 Carbon Dioxide 24 Anion Gap 9 BUN 15 D Creatinine 1.1 D Creat Clearance w eGFR > 60 POC Glucometer Random Glucose 200 H D Calcium 7.8 L Phosphorus 3.3 Magnesium 1.4 L D Total Bilirubin 0.4 D AST 26 D ALT 20 D Alkaline Phosphatase 79 D Total Protein 5.2 L Albumin 2.4 L Blood Type Crossmatch Active Medications Generic Name Dose Route Start Last Admin Trade Name Freq PRN Reason Stop Dose Admin Diphenhydramine HCl 25 mg 12/30/16 22:00 12/30/16 21:40 Benadryl - PO Not Given HS [facility] Furosemide 40 mg 12/31/16 10:00 Lasix - PO DAILY [facility] Lactated Ringer's 1,000 mls @ 75 mls/hr 12/30/16 19:00 12/30/16 18:30 Lactated Ringers Solution IV 350 mls ASDIR [facility] Administration Ertapenem 1 gm/ Sodium 50 mls @ 50 mls/hr 12/31/16 10:00 Chloride IVPB DAILY [facility] Protocol Vancomycin HCl 1,250 mg/ 250 mls @ 166.667 mls/hr 12/30/16 22:00 12/30/16 21:39 Dextrose IVPB 166.667 mls/hr BID [facility] Administration Protocol Insulin Aspart 1 vial 12/30/16 22:00 12/31/16 06:26 Novolog Vial Sliding Scale - SQ 4 units ACHS [facility] Administration Protocol Losartan Potassium 25 mg 12/31/16 10:00 Cozaar - PO DAILY [facility] Methadone HCl 40 mg/ Methadone 70 mg 12/31/16 06:00 12/31/16 08:50 HCl 30 mg PO 70 mg DAILY@0600 [facility] Administration Metoprolol Tartrate 50 mg 12/30/16 22:00 12/30/16 21:39 Lopressor - PO Not Given BID [facility] Morphine Sulfate 4 mg 12/30/16 17:06 12/31/16 03:23 Morphine Injection - IVPUSH 4 mg Q4H PRN Administration PAIN Nystatin 500,000 units 12/31/16 00:00 12/31/16 06:25 Nystatin Oral Suspension - PO Not Given Q6HPO [facility] Silver Sulfadiazine 1 applic 12/31/16 10:00 Silvadene - TP DAILY [facility] ASSESSMENT/PLAN: Patient is a 61 year old male with significant past medical history of of newly diagnosed atrial fibrillation (on Xarelto), CHF, HTN, PAD, and venous ulcerations on bilateral lower extremities, opioid dependence (on methadone). He was admitted on 12/22/2016 with bilateral wound cellulitis with weeping and A fib with RVR. Vascular: PAD with distal aorta and external iliac occlusion Assessment/Plan: s/p aorto-bifemoral bypass POD #1 bilateral foot pulses warm to touch, denies pain or discomfort Monitor for any pain PT when more stable Bilateral venous stasis wounds Assessment/Plan: On going wound care with Silvadene Vascular following Cardiology: Afib with RVR Assessment/Plan: On Metoprolol 50mg BID Rate control with Xarelto Had periods of bradycardia yesterday, monitor on tele Cardiology following Diastolic dysfunction Assessment/Plan: Lasix 40mg daily, Losartan 25mg daily Endocrine: Diabetes mellitus Assessment/Plan: monitor BGMs, sliding scale [id number] 8.6 Psyche: Polysubstance abuse Assessment/Plan: Methadone 70mg daily F.E.N. Fluids: lactated ringers @ 75cc/hr Electrolytes: monitor bmp Nutrition: NPO Prophylaxis: DVT: On Xarelto GI: Protonix Disposition: Requires ICU monitoring. Full Code. Visit type - Emergency Visit Emergency Visit: Yes ED Registration Date: 12/22/16 Care time: The patient presented to the Emergency Department on the above date and was hospitalized for further evaluation of their emergent condition. - New Patient This patient is new to me today: Yes Date on this admission: 01/03/17 - Critical Care Critical Care patient: Yes Total Critical Care Time (in minutes): 45 Critical Care Statement: The care of this patient involved high complexity decision making to prevent further life threatening deterioration of the patient 's condition and/or to evalute & treat vital organ system(s) failure or risk of failure.
[2016-12-31] MEDS ORDERED: ONDANSETRON 4 MG/2 ML VIAL ONE (09:10)
[2016-12-31] MEDS ORDERED: MAGNESIUM SULF 50% (8.12 MEQ/2 ML-1 GM VIAL) ONE (09:10)
[2016-12-31] MEDS ORDERED: METOCLOPRAMIDE HCL INJECTION 10 MG/2 ML VIAL IVPB ONE (09:12)
[2016-12-31] MEDS: ERTAPENEM SODIUM 1 GM in SODIUM CHLORIDE 50 ML IVPB SCH (09:42)
[2016-12-31] MEDS: VANCOMYCIN 1,250 MG in DEXTROSE 5%-WATER - 250 ML IVPB SCH ×2 (09:42→21:59)
[2016-12-31] MEDS: SILVER SULFADIAZINE 1% TOP CREAM 50 GM JAR TP SCH (09:42)
[2016-12-31] MEDS: LOSARTAN POTASSIUM 25 MG TABLET PO SCH ×2 (09:44→10:00)
[2016-12-31] MEDS: FUROSEMIDE 40 MG TABLET (FP) PO SCH ×2 (09:44→10:00)
[2016-12-31] MEDS: METOPROLOL TARTRATE 50 MG TABLET (FP) PO SCH ×2 (09:44→21:59)
[2016-12-31 10:01] LABS: PLATELET ESTIMATE ADEQUATE (NORMAL)
[2016-12-31] MEDS ORDERED: HEPARIN INFUSION - 500 ML IVPB ONE (10:52)
[2016-12-31] MEDS: RIVAROXABAN 20 MG TABLET PO SCH (11:00)
[2016-12-31] MEDS ORDERED: METOPROLOL TARTRATE 5 MG/5 ML VIAL ONE ×2 (11:04→11:11)
[2016-12-31] MEDS ORDERED: ACETAMINOPHEN 1000 MG/100 ML VIAL (NON FORMULARY) IVPB PRN (11:30)
[2016-12-31] MEDS ORDERED: dilTIAZem HCL 125 MG/25 ML - 25 ML VIAL ONE (11:50)
[2016-12-31] MEDS ORDERED: METOPROLOL TARTRATE 5 MG/5 ML VIAL IVPUSH ONE (12:00)
--- NOTE | 2016-12-31 12:01 | PN ---
Progress Note (short form) - Note Progress Note: Anesthesiology Post-op POD#1 s/p aorta bifem bypass under GA. Pt. awake and alert, feeling well though he does admit to some pain for which he has IV morphine ordered. Otherwise, he denies nausea or other issues. VSS.
--- NOTE | 2016-12-31 12:03 | PN ---
Teaching Attending Note Name of Resident: Michael Lyn ATTENDING PHYSICIAN STATEMENT I saw and evaluated the patient. I reviewed the resident's note and discussed the case with the resident. I agree with the resident's findings and plan as documented. SUBJECTIVE: Pt seen and examined in the ICU. c/o some abdominal pain at surgical site. Denies shortness of breath or chest pain. Went into rapid atrial fibrillation shortly after rounds. +palpitations. OBJECTIVE: Last Vital Signs Temp Pulse Resp BP Pulse Ox 97.8 F 86 12 109/69 97 12/31/16 06:00 12/31/16 10:15 12/31/16 06:00 12/31/16 06:00 12/31/16 10:15 Intake & Output 12/28/16 12/29/16 12/30/16 12/31/16 23:59 23:59 23:59 23:59 Intake Total 111 208 2045.5 650 Output Total 2700 825 Balance 315 399 9255.5 -175 Weight 190 lb 12.8 oz 192 lb 0.8 oz 189 lb 6 oz 200 lb 14.4 oz Gen: mildly tachypneic with speaking Heart: tachycardic, irregular Lung: distant breath sounds, no wheezes Abd: soft, diffuse tenderness, dressings slightly sanguinous Ext: no edema, dressings dry CBC, BMP 12/31/16 05:35 12/31/16 05:35 Active Medications Acetaminophen (Ofirmev Injection -) 1,000 mg IVPB Q6H PRN PRN Reason: FEVER OR PAIN Stop: 01/01/17 05:31 Albuterol/Ipratropium (Duoneb -) 1 amp NEB QIDR [facility] Diltiazem HCl (Cardizem Injection -) 10 mg IVPUSH ONCE ONE Stop: 12/31/16 11:51 Diphenhydramine HCl (Benadryl -) 25 mg PO HS [facility] Last Admin: 12/30/16 21:40 Dose: Not Given Furosemide (Lasix -) 40 mg PO DAILY [facility] Last Admin: 12/31/16 09:44 Dose: 40 mg Lactated Ringer's (Lactated Ringers Solution) 1,000 mls @ 75 mls/hr IV ASDIR [facility] Last Admin: 12/30/16 18:30 Dose: 350 mls Ertapenem 1 gm/ Sodium (Chloride) 50 mls @ 50 mls/hr IVPB DAILY [facility] PRN Reason: Protocol Last Admin: 12/31/16 09:42 Dose: 50 mls/hr Vancomycin HCl 1,250 mg/ (Dextrose) 250 mls @ 166.667 mls/hr IVPB BID [facility] PRN Reason: Protocol Last Admin: 12/31/16 09:42 Dose: 166.667 mls/hr Insulin Aspart (Novolog Vial Sliding Scale -) 1 vial SQ ACHS [facility] PRN Reason: Protocol Last Admin: 12/31/16 06:26 Dose: 4 units Losartan Potassium (Cozaar -) 25 mg PO DAILY [facility] Last Admin: 12/31/16 09:44 Dose: 25 mg Methadone HCl 40 mg/ Methadone (HCl 30 mg) 70 mg PO DAILY@0600 [facility] Last Admin: 12/31/16 08:50 Dose: 70 mg Metoprolol Tartrate (Lopressor -) 50 mg PO BID [facility] Last Admin: 12/31/16 09:44 Dose: 50 mg Metoprolol Tartrate (Lopressor Injection -) 5 mg IVPUSH ONCE ONE Stop: 12/31/16 12:01 Morphine Sulfate (Morphine Injection -) 4 mg IVPUSH Q4H PRN PRN Reason: PAIN Last Admin: 12/31/16 03:23 Dose: 4 mg Nystatin (Nystatin Oral Suspension -) 500,000 units PO Q6HPO [facility] Last Admin: 12/31/16 06:25 Dose: Not Given Rivaroxaban (Xarelto -) 20 mg PO DAILY [facility] Silver Sulfadiazine (Silvadene -) 1 applic TP DAILY [facility] Last Admin: 12/31/16 09:42 Dose: Not Given ASSESSMENT AND PLAN: s/p Aorto-bifemoral Bypass 5/3 Paroxysmal Atrial Fibrillation with RVR PAD LE Ulcers/Cellulitis LV Diastolic Dysfunction COPD Smoker - given lopressor x3 and cardizem IVP x 1 so far, may need cardizem gtt - resume anticoagulation, monitor H/H - continue antibiotics - NPO - IVF - await return of bowel function before starting PO - pain control - incentive spirometry - inhaled bronchodilators - O2 to keep SpO2 >90% - OOB to chair - continue ICU monitoring critical care time spent in reviewing chart, evaluating patient and formulating plan 36 min
--- NOTE | 2016-12-31 12:04 | PN ---
Progress Note, Physician History of Present Illness: PMD: Trisha Rodas POD#1 aorto-bifemoral bypass, now in rapid afib 120s with palpitations, denies chest pain or dyspnea, BP stable. - Current Medication List Current Medications: Active Medications Acetaminophen (Ofirmev Injection -) 1,000 mg IVPB Q6H PRN PRN Reason: FEVER OR PAIN Stop: 01/01/17 05:31 Albuterol/Ipratropium (Duoneb -) 1 amp NEB QIDR [facility] Diltiazem HCl (Cardizem Injection -) 10 mg IVPUSH ONCE ONE Stop: 12/31/16 12:31 Diphenhydramine HCl (Benadryl -) 25 mg PO HS [facility] Last Admin: 12/30/16 21:40 Dose: Not Given Furosemide (Lasix -) 40 mg PO DAILY [facility] Last Admin: 12/31/16 09:44 Dose: 40 mg Hydromorphone HCl (Dilaudid Injection -) 1 mg IVPB ONCE ONE Stop: 12/31/16 12:31 Lactated Ringer's (Lactated Ringers Solution) 1,000 mls @ 75 mls/hr IV ASDIR [facility] Last Admin: 12/30/16 18:30 Dose: 350 mls Ertapenem 1 gm/ Sodium (Chloride) 50 mls @ 50 mls/hr IVPB DAILY [facility] PRN Reason: Protocol Last Admin: 12/31/16 09:42 Dose: 50 mls/hr Vancomycin HCl 1,250 mg/ (Dextrose) 250 mls @ 166.667 mls/hr IVPB BID [facility] PRN Reason: Protocol Last Admin: 12/31/16 09:42 Dose: 166.667 mls/hr Insulin Aspart (Novolog Vial Sliding Scale -) 1 vial SQ ACHS [facility] PRN Reason: Protocol Last Admin: 12/31/16 06:26 Dose: 4 units Losartan Potassium (Cozaar -) 25 mg PO DAILY [facility] Last Admin: 12/31/16 09:44 Dose: 25 mg Methadone HCl 40 mg/ Methadone (HCl 30 mg) 70 mg PO DAILY@0600 [facility] Last Admin: 12/31/16 08:50 Dose: 70 mg Metoprolol Tartrate (Lopressor -) 50 mg PO BID [facility] Last Admin: 12/31/16 09:44 Dose: 50 mg Morphine Sulfate (Morphine Injection -) 4 mg IVPUSH Q4H PRN PRN Reason: PAIN Last Admin: 12/31/16 03:23 Dose: 4 mg Nystatin (Nystatin Oral Suspension -) 500,000 units PO Q6HPO [facility] Last Admin: 12/31/16 06:25 Dose: Not Given Rivaroxaban (Xarelto -) 20 mg PO DAILY [facility] Silver Sulfadiazine (Silvadene -) 1 applic TP DAILY [facility] Last Admin: 12/31/16 09:42 Dose: Not Given - Objective Vital Signs: Vital Signs Temperature 97.8 F 12/31/16 06:00 Pulse Rate 86 12/31/16 10:15 Respiratory Rate 12 12/31/16 06:00 Blood Pressure 109/69 12/31/16 06:00 O2 Sat by Pulse Oximetry (%) 97 12/31/16 10:15 Constitutional: Yes: No Distress, Calm Neck: Yes: Supple Cardiovascular: Yes: Tachycardia, Pulse Irregular Respiratory: Yes: Regular, Diminished, On Nasal O2 Gastrointestinal: Yes: Normal Bowel Sounds, Soft Edema: Yes Edema: LLE: 1+, RLE: 1+ Labs: CBC, BMP 12/31/16 05:35 12/31/16 05:35 INR, PTT INR 1.22 (0.82-1.09) H 12/31/16 05:35 Problem List - Problems (1) Atrial fibrillation with rapid ventricular response Code(s): I48.91 - UNSPECIFIED ATRIAL FIBRILLATION (2) Cellulitis Code(s): L03.90 - CELLULITIS, UNSPECIFIED Qualifiers: Site of cellulitis of extremity: lower extremity Laterality: unspecified laterality (3) Methadone dependence Code(s): F11.20 - OPIOID DEPENDENCE, UNCOMPLICATED (4) PAD (peripheral artery disease) Code(s): I73.9 - PERIPHERAL VASCULAR DISEASE, UNSPECIFIED (5) Substance abuse Code(s): F19.10 - OTHER PSYCHOACTIVE SUBSTANCE ABUSE, UNCOMPLICATED (6) Diastolic dysfunction Code(s): I51.9 - HEART DISEASE, UNSPECIFIED (7) Pre-operative cardiovascular examination, high risk surgery Code(s): Z01.810 - ENCOUNTER FOR PREPROCEDURAL CARDIOVASCULAR EXAMINATION (8) S/P aorto-bifemoral bypass surgery Code(s): Z95.828 - PRESENCE OF OTHER VASCULAR IMPLANTS AND GRAFTS Assessment/Plan 12/2016 P-Myoview showing small mild inferior ischemia with preserved LVEF 71% 1. Persistent atrial fibrillation with RVR [id number] score of 2 2. CAD angina pectoris 3. LV diastolic dysfunction with chronic class 0-I NYHA classification LV failure 4. PAD s/p Aorto-bifemoral Bypass 12/30 5. Bilateral lower extremity ulcers/cellulitis 6. COPD/smoking PLAN: 1. Resumed Xarelto 20 qpm post-op, Lopressor 50 bid and Cozaar 25 qd as hemodynamics tolerate, IV Lopressor and Cardizem as needed for rate-control 2. Antibiotic course per the primary team 3. Analgesia as needed, incentive spirometry, inhaled bronchodilators, O2 to keep SpO2 >90%, OOB to chair
[2016-12-31] MEDS: METOPROLOL TARTRATE 5 MG/5 ML VIAL IVPUSH SCH ×2 (12:05→12:20)
[2016-12-31] MEDS ORDERED: dilTIAZem HCL 125 MG/25 ML - 5 ML VIAL ONE (12:20)
[2016-12-31] MEDS ORDERED: dilTIAZem HCL 50 MG/10 ML - 10 ML VIAL IVPUSH ONE ×3 (12:30→16:30)
[2016-12-31] MEDS ORDERED: HYDROmorphone HCL CARPU-JECT 1 MG/1 ML DISP.SYRIN IVPB ONE (12:30)
[2016-12-31] MEDS: DILTIAZEM INJECTION 125 MG in DEXTROSE 5%-WATER - 100 ML IVPB SCH (13:10)
--- NOTE | 2016-12-31 13:17 | PN ---
Physical Exam: SUBJECTIVE: Patient seen and examined Pt seen and examined in the ICU. c/o some abdominal pain at surgical site. Denies shortness of breath or chest pain. Went into rapid atrial fibrillation shortly after rounds. +palpitations. OBJECTIVE: Vital Signs Period Temp Pulse Resp BP Sys/Chatterjee Pulse Ox Last 24 Hr 93 F-98.0 F 65-86 12-28 94-126/53-86 93-98 GENERAL: The patient is awake, alert, and fully oriented, in no acute distress. EYES: PERRL, ENT: Ears normal, nares patent, NECK: Trachea midline, full range of motion, supple. LUNGS: Breath sounds equal, clear to auscultation bilaterally. HEART: s1s2 ABDOMEN: Soft, nondistended, bowel sounds negative, no guarding, no rebound, tenderness on suture site. EXTREMITIES: 2+ pulses, warm, well-perfused, no edema. PSYCH: Normal mood, normal affect. SKIN: Warm, dry, Laboratory Results - last 24 hr 12/29/16 12/30/16 12/30/16 13:51 19:00 19:11 WBC 21.6 H D RBC 4.06 Hgb 12.0 Hct 37.3 MCV 91.7 MCHC 32.2 RDW 16.1 H Plt Count 191 MPV 9.8 Neutrophils % 86.0 H D Lymphocytes % 3.0 L D Monocytes % 6.0 Basophils % Band Neutrophils 5.0 Differential Comment Platelet Estimate Adequate Platelet Comment No clumping noted INR Puncture Site Arterial line ABG pH 7.24 L* ABG pCO2 at Pt Temp 41.0 ABG pO2 at Pt Temp 70.6 L ABG HCO3 17.1 L ABG O2 Sat (Measured) 91.1 ABG O2 Content 13.3 L ABG Base Excess -9.3 L Naveen Test Not applicable O2 Delivery Device Non-rebreather Oxygen Flow Rate 100% PEEP 0.0 Sodium Potassium Chloride Carbon Dioxide Anion Gap BUN Creatinine Creat Clearance w eGFR POC Glucometer Random Glucose Calcium Phosphorus Magnesium Total Bilirubin AST ALT Alkaline Phosphatase Total Protein Albumin Crossmatch See Detail 12/30/16 12/30/16 12/31/16 19:26 21:45 05:35 WBC 22.5 H RBC 3.98 L Hgb 11.8 Hct 36.2 MCV 91.0 MCHC 32.5 RDW 15.9 Plt Count 193 MPV 10.6 Neutrophils % 87.0 H Lymphocytes % 2.0 L D Monocytes % 8.0 Basophils % 1.0 Band Neutrophils 2.0 D Differential Comment Manual diff done Platelet Estimate Adequate Platelet Comment INR Puncture Site ABG pH ABG pCO2 at Pt Temp ABG pO2 at Pt Temp ABG HCO3 ABG O2 Sat (Measured) ABG O2 Content ABG Base Excess Naveen Test O2 Delivery Device Oxygen Flow Rate PEEP Sodium Potassium Chloride Carbon Dioxide Anion Gap BUN Creatinine Creat Clearance w eGFR POC Glucometer [phone] Random Glucose Calcium Phosphorus Magnesium Total Bilirubin AST ALT Alkaline Phosphatase Total Protein Albumin Crossmatch 12/31/16 12/31/16 12/31/16 05:35 05:35 05:53 WBC RBC Hgb Hct MCV MCHC RDW Plt Count MPV Neutrophils % Lymphocytes % Monocytes % Basophils % Band Neutrophils Differential Comment Platelet Estimate Platelet Comment INR 1.22 H Puncture Site ABG pH ABG pCO2 at Pt Temp ABG pO2 at Pt Temp ABG HCO3 ABG O2 Sat (Measured) ABG O2 Content ABG Base Excess Naveen Test O2 Delivery Device Oxygen Flow Rate PEEP Sodium 138 Potassium 4.1 Chloride 105 Carbon Dioxide 24 Anion Gap 9 BUN 15 D Creatinine 1.1 D Creat Clearance w eGFR > 60 POC Glucometer [phone] Random Glucose 200 H D Calcium 7.8 L Phosphorus 3.3 Magnesium 1.4 L D Total Bilirubin 0.4 D AST 26 D ALT 20 D Alkaline Phosphatase 79 D Total Protein 5.2 L Albumin 2.4 L Crossmatch 12/31/16 12:41 WBC RBC Hgb Hct MCV MCHC RDW Plt Count MPV Neutrophils % Lymphocytes % Monocytes % Basophils % Band Neutrophils Differential Comment Platelet Estimate Platelet Comment INR Puncture Site ABG pH ABG pCO2 at Pt Temp ABG pO2 at Pt Temp ABG HCO3 ABG O2 Sat (Measured) ABG O2 Content ABG Base Excess Naveen Test O2 Delivery Device Oxygen Flow Rate PEEP Sodium Potassium Chloride Carbon Dioxide Anion Gap BUN Creatinine Creat Clearance w eGFR POC Glucometer [phone] Random Glucose Calcium Phosphorus Magnesium Total Bilirubin AST ALT Alkaline Phosphatase Total Protein Albumin Crossmatch Active Medications Generic Name Dose Route Start Last Admin Trade Name Freq PRN Reason Stop Dose Admin Acetaminophen 1,000 mg 12/31/16 11:30 Ofirmev Injection - IVPB 01/01/17 05:31 Q6H PRN FEVER OR PAIN Albuterol/Ipratropium 1 amp 12/31/16 14:00 Duoneb - NEB QIDR [facility] Diphenhydramine HCl 25 mg 12/30/16 22:00 12/30/16 21:40 Benadryl - PO Not Given HS [facility] Furosemide 40 mg 12/31/16 10:00 Lasix - PO DAILY [facility] Lactated Ringer's 1,000 mls @ 75 mls/hr 12/30/16 19:00 12/30/16 18:30 Lactated Ringers Solution IV 350 mls ASDIR [facility] Administration Ertapenem 1 gm/ Sodium 50 mls @ 50 mls/hr 12/31/16 10:00 12/31/16 09:42 Chloride IVPB 50 mls/hr DAILY [facility] Administration Protocol Vancomycin HCl 1,250 mg/ 250 mls @ 166.667 mls/hr 12/30/16 22:00 12/31/16 09:42 Dextrose IVPB 166.667 mls/hr BID [facility] Administration Protocol Diltiazem HCl 125 mg/ Dextrose 125 mls @ 5 mls/hr 12/31/16 12:45 IVPB TITR [facility] Protocol 5 MG/HR Insulin Aspart 1 vial 12/30/16 22:00 12/31/16 06:26 Novolog Vial Sliding Scale - SQ 4 units ACHS [facility] Administration Protocol Losartan Potassium 25 mg 12/31/16 10:00 Cozaar - PO DAILY [facility] Methadone HCl 40 mg/ Methadone 70 mg 12/31/16 06:00 12/31/16 08:50 HCl 30 mg PO 70 mg DAILY@0600 [facility] Administration Metoprolol Tartrate 50 mg 12/30/16 22:00 12/31/16 09:44 Lopressor - PO 50 mg BID [facility] Administration Morphine Sulfate 4 mg 12/30/16 17:06 12/31/16 03:23 Morphine Injection - IVPUSH 4 mg Q4H PRN Administration PAIN Nystatin 500,000 units 12/31/16 00:00 12/31/16 06:25 Nystatin Oral Suspension - PO Not Given Q6HPO [facility] Rivaroxaban 20 mg 12/31/16 10:00 Xarelto - PO DAILY [facility] Silver Sulfadiazine 1 applic 12/31/16 10:00 12/31/16 09:42 Silvadene - TP Not Given DAILY [facility] ASSESSMENT/PLAN: 61 year old male with PMHx of newly diagnosed a.fib (on Xarelto), CHF, HTN, PAD R>L and venous ulcerations to b/l lower ext, opioid dependence (on methadone for 5 years for heroin) admitted with bilateral wound cellulitis with weeping and A fib with RVR, to which he self converted. Plan: 1. 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 PAF, A fib with RVR - started on cardiazem drip - on Xaralto - on Lopressor 50 bid - cardiology on case 3. B/l lower extremity cellulitis/venous stasis wounds - on Vancomcyin and eratapenem - Silvadene and Sekou bandage daily - ID on case 4. Diastolic dysfunction - Lasix 40mg daily - Losartan 25mg daily 5. Newly diagnosed DM II - BGM, achs - insulin sliding scale - Metformin on discharge 6. Methadone dependence/substance abuse hx - Methadone 70mg po daily 8. Insomnia - Benadryl 25mg HS 7. Fluid: on RL 75 ml/hr electrolyte; repeat in evening nutrition; npo dvt pro: on xarelto gi pro : pepcid dispo: icu Visit type - Emergency Visit Emergency Visit: Yes ED Registration Date: 12/22/16 Care time: The patient presented to the Emergency Department on the above date and was hospitalized for further evaluation of their emergent condition. - New Patient This patient is new to me today: No - Critical Care Critical Care patient: Yes Total Critical Care Time (in minutes): 45 Critical Care Statement: The care of this patient involved high complexity decision making to prevent further life threatening deterioration of the patient 's condition and/or to evalute & treat vital organ system(s) failure or risk of failure.
--- NOTE | 2016-12-31 13:57 | PN ---
Progress Note (short form) - Note Progress Note: Vascular Surgery- Dr. Cunningham Patient seen and examined with Dr. Cunningham. Patient is feeling well, having some pain in his abdomen. Last Vital Signs Temp Pulse Resp BP Pulse Ox 97.8 F 86 12 109/69 97 12/31/16 06:00 12/31/16 10:15 12/31/16 06:00 12/31/16 06:00 12/31/16 10:15 CBC, BMP 12/31/16 05:35 12/31/16 05:35 Exam: Gen: NAD Abd/Groins: soft, mild tenderness around abdominal incision, dressings with some serosanguineous drainage, otherwise abdominal and groin dressings clean and intact LE equally warm and perfused A/P POD#1 s/p Aorto-bifemoral bypass Continue NPO until flatus/bowel function returns Pain control May resume anticoagulation OOb to chair Seen and discussed with Dr. Cunningham and agrees
[2016-12-31] MEDS ORDERED: ALBUTEROL SO4 2.5/IPRATROPIUM 0.5 INH SOL 3 ML VIAL.NEB. NEB SCH (14:00)
--- NOTE | 2016-12-31 17:03 | PN ---
Progress Note, Physician History of Present Illness: post op patient stable no complaints in icu events noted in icu patient - Current Medication List Current Medications: Active Medications Acetaminophen (Ofirmev Injection -) 1,000 mg IVPB Q6H PRN PRN Reason: FEVER OR PAIN Stop: 01/01/17 05:31 Albuterol/Ipratropium (Duoneb -) 1 amp NEB Q6H PRN PRN Reason: SHORTNESS OF BREATH Diphenhydramine HCl (Benadryl -) 25 mg PO HS [facility] Last Admin: 12/30/16 21:40 Dose: Not Given Furosemide (Lasix -) 40 mg PO DAILY [facility] Last Admin: 12/31/16 10:00 Dose: Not Given Lactated Ringer's (Lactated Ringers Solution) 1,000 mls @ 75 mls/hr IV ASDIR [facility] Last Admin: 12/30/16 18:30 Dose: 350 mls Ertapenem 1 gm/ Sodium (Chloride) 50 mls @ 50 mls/hr IVPB DAILY [facility] PRN Reason: Protocol Last Admin: 12/31/16 09:42 Dose: 50 mls/hr Vancomycin HCl 1,250 mg/ (Dextrose) 250 mls @ 166.667 mls/hr IVPB BID [facility] PRN Reason: Protocol Last Admin: 12/31/16 09:42 Dose: 166.667 mls/hr Diltiazem HCl 125 mg/ Dextrose 125 mls @ 5 mls/hr IVPB TITR [facility]; 5 MG/HR PRN Reason: Protocol Last Admin: 12/31/16 13:10 Dose: 5 mls/hr Insulin Aspart (Novolog Vial Sliding Scale -) 1 vial SQ ACHS [facility] PRN Reason: Protocol Last Admin: 12/31/16 12:20 Dose: 2 units Losartan Potassium (Cozaar -) 25 mg PO DAILY [facility] Last Admin: 12/31/16 10:00 Dose: Not Given Methadone HCl 40 mg/ Methadone (HCl 30 mg) 70 mg PO DAILY@0600 [facility] Last Admin: 12/31/16 08:50 Dose: 70 mg Metoprolol Tartrate (Lopressor -) 50 mg PO BID [facility] Last Admin: 12/31/16 09:44 Dose: 50 mg Morphine Sulfate (Morphine Injection -) 4 mg IVPUSH Q4H PRN PRN Reason: PAIN Last Admin: 12/31/16 03:23 Dose: 4 mg Nystatin (Nystatin Oral Suspension -) 500,000 units PO Q6HPO [facility] Last Admin: 12/31/16 06:25 Dose: Not Given Rivaroxaban (Xarelto -) 20 mg PO DAILY [facility] Last Admin: 12/31/16 11:00 Dose: 20 mg Silver Sulfadiazine (Silvadene -) 1 applic TP DAILY [facility] Last Admin: 12/31/16 09:42 Dose: Not Given - Objective Vital Signs: Vital Signs Temperature 97.8 F 12/31/16 06:00 Pulse Rate 164 H 12/31/16 12:20 Respiratory Rate 12 12/31/16 06:00 Blood Pressure 110/58 12/31/16 12:20 O2 Sat by Pulse Oximetry (%) 97 12/31/16 10:15 Constitutional: Yes: No Distress, Calm Cardiovascular: Yes: S1, S2 Respiratory: Yes: Regular, CTA Bilaterally Gastrointestinal: Yes: Tenderness, Other (absent bs) Musculoskeletal: Yes: Other Extremities: Yes: Other Integumentary: Yes: Venous Stasis Changes, Other Wound/Incision: Yes: Dressing Dry and Intact, Other (leg wounds looks good) Neurological: Yes: Alert, Oriented Psychiatric: Yes: Alert, Oriented Labs: CBC, BMP 12/31/16 05:35 12/31/16 05:35 INR, PTT INR 1.22 (0.82-1.09) H 12/31/16 05:35 Assessment/Plan - Problems (1) Atrial fibrillation with rapid ventricular response Code(s): I48.91 - UNSPECIFIED ATRIAL FIBRILLATION (2) Cellulitis Code(s): L03.90 - CELLULITIS, UNSPECIFIED Qualifiers: Site of cellulitis of extremity: lower extremity Laterality: unspecified laterality (3) Methadone dependence Code(s): F11.20 - OPIOID DEPENDENCE, UNCOMPLICATED (4) PAD (peripheral artery disease) Code(s): I73.9 - PERIPHERAL VASCULAR DISEASE, UNSPECIFIED (5) Substance abuse Code(s): F19.10 - OTHER PSYCHOACTIVE SUBSTANCE ABUSE, UNCOMPLICATED (6) Diastolic dysfunction Code(s): I51.9 - HEART DISEASE, UNSPECIFIED wound infection plan continue current mgmt close monitoring as per cardio as per icu rest ct current mgmt cc time 40 min
--- NOTE | 2016-12-31 17:23 | OP ---
DATE OF OPERATION: 12/30/2016 PREOPERATIVE DIAGNOSIS: Aortic occlusion. POSTOPERATIVE DIAGNOSIS: Aortic occlusion. PROCEDURE: Aortobifemoral bypass. SURGEONS: Ronnie Cunningham DO and Javier Ruiz MD as co-surgeons. SPINNER TENDER: AMINA Hernandez BLOOD LOSS: 400 mL. The patient is a 61-year-old male who comes in with bilateral lower extremity ulcers and pain and cannot walk basically cannot even make it across the street anymore. Comes in saying that he was at another institution where they did a CAT scan on him, and they found that he needs a bypass. When he came to [facility] ER, he got a CTA that showed that he has aortic occlusion where the aorta is occluded below the renal veins and that the bilateral common iliacs and external iliacs are occluded. It was decided that he would probably need an aortobifemoral bypass. Cardiology workup was performed, and he got a stress test and an echocardiogram which deemed him fit to have surgery. Patient was then consented for the procedure, understanding all risks, benefits, and alternatives, understanding the risks of bleeding, infection, clot formation. Patient was then brought into the holding area. Consent was obtained. PROCEDURE IN DETAIL: Patient was then brought into the operating room and laid down on the operating room table in the supine manner. General anesthesia was administered to the patient. An A line was placed in the patient. Douglas was placed in the patient. Under ultrasound guidance, we were able to map out the bilateral common femoral arteries in bilateral groins, and the incision was drawn out using a skin marker. We then went ahead and prepped and draped from the knees all the way up to the nipples in a sterile surgical manner. We then went ahead and both surgeons working together, working in each groin, using a 15 blade, we cut along our incision over the common femoral artery. Bovie electrocautery used to control hemostasis, and we were able to dissect down to the femoral sheath and opened the femoral sheath and get down to the common femoral artery. Once we got down to the common femoral artery, the artery was dissected, and the common femoral artery, the profunda was dissected and the SFA was dissected anterior and posteriorly. We then went ahead and placed vessel loops around each vessel to get control. We were then able to do that in both groins, and we were able to isolate both the common femoral artery, the SFA, and the profunda in this manner. Once that had been performed, we decided that now we can open the abdomen. We went ahead and made an incision using a number 15 blade, going from the xiphoid process all the way down to below the umbilicus. Bovie electrocautery used to control hemostasis, and we were able to get down through all the subcutaneous tissue and get down to the fascia. The fascia was then opened. Once the fascia was opened, we got down to the peritoneum. The peritoneum was then opened, and we are able to open the abdomen. Once the abdomen was opened, we then went ahead and used an Omni retractor, and we were then able to retract the transverse colon cephalad. We were able to take the small bowel and retract it away to the right upper quadrant. Once that was done, we were in the retroperitoneum, and we were able to then open the retroperitoneum and get down to the aorta. Once we got down to the aorta, we then were able to dissect the aorta. We then dissected the right and left renal arteries as well, and we got control of them. We came across our left renal vein and took care not to injure it and a renal vein retractor was placed and we were able to retract it cephalad. The gonadal vein coming off the renal vein was then ligated as well. Once that was performed and we had control of the renal arteries and we had dissected out the adequate portion of the aorta, we then knew that we can use a DeBakey clamp and place the clamp above the renals. So, at this point, we made our tunnels from the groin up into the retroperitoneum. Once the tunnels were made, we knew that we can pass the bifurcated graft, making sure that we were always posterior to the aorta. At this point, we administered 7000 units of IV heparin to the patient. Mannitol was also administered to the patient along with Lasix. After 3 minutes on IV heparin, we went ahead and clamped the aorta suprarenally. We then went ahead and clamped the distal aorta as well using a vascular clamp. We then used a number 11 blade and made our arteriotomy on the aorta which was then opened. We then used Metzenbaum scissors and opened the aorta. Once the aorta was open, we used a Watson elevator and removed all the clot that was inside it and all the plaque. That was all removed circumferentially. Once that was done, we took a 16 x 8 bifurcated Dacron graft. We went ahead and cut the graft. We beveled the graft, and we went ahead and used 3-0 Prolene and went outside-in on the graft and went inside-out on the aorta and ran the stitch around, performing an anastomosis between the graft and the aorta. Once that was completed, we placed a vascular clamp on the body of the aortic bifurcated graft and opened the proximal aorta, and the graft filled up nicely with good flow in a basin, and we were then able to clamp the body of the graft. At this point, we then went ahead and took a long DeBakey clamp, and we were able to take each bifurcated limb and bring it through our tunnel down to the groin, down to our common femoral artery. We then went ahead and did the left groin first. We worked on the left groin first, and we got proximal and distal control of our artery and on the profunda. We then made an arteriotomy in the common femoral artery, which was extended using Pott scissors. We then doubled our graft. We then went outside in on the graft and inside out on the artery and ran the stitch around for re-anastomosis between the artery and the graft. We then went ahead and did the same thing in the right groin where we got proximal and distal control on our common femoral artery. We then made an arteriotomy using an 11 blade. We then extended that with Pott scissors. We used 5-0 Prolene stay sutures. We then used 5-0 Prolene. We then went ahead and used 5-0 Prolene and went outside in on the graft and inside out on the artery and ran the stitch around, performing an anastomosis between the artery and the graft. Once the anastomoses were completed, we opened the distal artery first, then the proximal artery, and the grafts were opened. We then used the Doppler, and we were able to listen to the signals in the common femoral artery and in the profunda and in the graft bilaterally, and there was good flow. There was no bleeding. Gelfoam was used. At this point, we went ahead and made sure we were not bleeding in the belly. We went ahead and used 3-0 Vicryl and closed the retroperitoneum in a running fashion. Once that was done, we placed all the bowel back into the belly and covered the bowel with omentum. We then went ahead and used No. 1 looped PDS, and we were able to close the belly in a running fashion. Once the belly was closed, we went ahead and the skin was closed with skin ana. We then went into bilateral groins and 3-0 Vicryl was used and the subcutaneous tissue was approximated in interrupted manner. The skin for both groins was closed with skin ana. The patient tolerated the procedure with no complications. The areas were then dried, and 4 x 4 Tegaderms were placed. The patient tolerated the procedure with no complications. The patient was transferred to PACU in stable condition. Total blood loss 400 mL. RONNIE CUNNINGHAM DO [id number]
[2016-12-31] MEDS: LACTATED RINGERS SOLUTION 1,000 ML IV SCH (21:51)
[2016-12-31] MEDS: diphenhydrAMINE HCL 25 MG CAPSULE (FP) PO SCH (21:59)
[2017-01-01] MEDS: NYSTATIN 500,000 UNITS/5 ML SUSPENSION PO SCH ×4 (01:00→17:20)
[2017-01-01] MEDS ORDERED: HYDROmorphone HCL CARPU-JECT 1 MG/1 ML DISP.SYRIN IVPUSH ONE (03:13)
[2017-01-01] MEDS ORDERED: METHADONE HCL 10 MG TABLET ONE (06:01)
[2017-01-01] MEDS ORDERED: METHADONE HCL 40 MG DISPERSABLE TABLET ONE (06:01)
[2017-01-01] MEDS: METHADONE 40 MG, METHADONE 30 MG PO SCH (06:03)
[2017-01-01 06:27] LABS: MCH 29.3 pg (25.7-33.7); MCHC 31.9 g/dl (32.0-35.9); MEAN CELL VOLUME 91.8 fl (80-96); MEAN PLT VOLUME 10.6 fl (7.5-11.1); PLATELET COUNT 176 K/MM3 (134-434); RDW 16.2 % (11.9-15.9); WHITE BLOOD COUNT 24.3 K/mm3 (4.0-10.0)
[2017-01-01] MEDS: INSULIN SLIDING SCALE (NOVOLOG) 1 VIAL SQ SCH ×4 (06:45→22:04)
[2017-01-01 07:34] LABS: ALBUMIN 2.6 g/dl (3.4-5.0); ANION GAP 9 (8-16); BILIRUBIN,TOTAL 0.8 mg/dL (0.2-1.0); CALCIUM 8.5 mg/dL (8.5-10.1); CO2 29 mmol/L (21-32); CREATININE 1.1 mg/dL (0.7-1.3); GLUCOSE,RANDOM 123 mg/dL (74-106); MAGNESIUM 1.9 mg/dL (1.8-2.4); SGOT/AST 49 U/L (15-37); SGPT/ALT 32 U/L (12-78); TOT PROT 5.5 g/dl (6.4-8.2)
[2017-01-01 07:35] LABS: ALK PHOS 82 U/L (45-117)
--- NOTE | 2017-01-01 07:39 | PN ---
Progress Note (short form) - Note Progress Note: POD #2 Alert. Doing well. Resting in position of comfort. C/o incisional tenderness. Pain control via PRN meds. States his legs feel warmer today compared to prior to surgical procedure. Still having some "tingling sensation" to feet (present prior to surgery). He was restarted back on his Xarelto yesterday. Denies n/v/f/c, CP, SOB, flatus or bm. Last Vital Signs Temp Pulse Resp BP Pulse Ox 98.1 F 82 22 157/94 97 01/01/17 06:00 01/01/17 06:00 01/01/17 06:00 01/01/17 06:00 12/31/16 23:10 CBC, BMP 01/01/17 05:10 01/01/17 05:10 Gen: NAD Abd/Groins: soft, midline and groin incisions intact with ana. No hematoma. No oozong. Bilat LE: warm, palpable DP bilat. Cap refill < 3 sec Problem List - Problems (1) S/P aorto-bifemoral bypass surgery Assessment/Plan: POD #3 Dressing changed on rounds Cont NPO until bowel function resumes Pain control PRN On Xarelto OOB to chair Physical therpay Can downgrade to floor at ICU discretion Dr. Cunningham away until Wednesday. Dr. Ruiz covering. Code(s): Z95.828 - PRESENCE OF OTHER VASCULAR IMPLANTS AND GRAFTS
[2017-01-01] MEDS: ERTAPENEM SODIUM 1 GM in SODIUM CHLORIDE 50 ML IVPB SCH (09:34)
[2017-01-01] MEDS: RIVAROXABAN 20 MG TABLET PO SCH (09:37)
[2017-01-01] MEDS: METOPROLOL TARTRATE 50 MG TABLET (FP) PO SCH ×2 (09:38→21:50)
[2017-01-01] MEDS ORDERED: dilTIAZem HCL 50 MG/10 ML - 10 ML VIAL IVPUSH ONE (09:56)
[2017-01-01] MEDS ORDERED: dilTIAZem HCL 125 MG/25 ML - 25 ML VIAL ONE (09:57)
[2017-01-01 10:01] LABS: PLATELET ESTIMATE ADEQUATE (NORMAL)
[2017-01-01] MEDS: DILTIAZEM INJECTION 125 MG in DEXTROSE 5%-WATER - 100 ML IVPB SCH ×2 (10:05→13:02)
[2017-01-01] MEDS: LOSARTAN POTASSIUM 25 MG TABLET PO SCH (10:08)
[2017-01-01] MEDS: FUROSEMIDE 40 MG TABLET (FP) PO SCH (10:08)
[2017-01-01] MEDS ORDERED: METOPROLOL TARTRATE 5 MG/5 ML VIAL ONE (10:37)
[2017-01-01] MEDS: VANCOMYCIN 1,250 MG in DEXTROSE 5%-WATER - 250 ML IVPB SCH ×2 (10:43→21:50)
[2017-01-01] MEDS ORDERED: METOPROLOL TARTRATE 5 MG/5 ML VIAL IVPUSH ONE (11:43)
[2017-01-01] MEDS: SILVER SULFADIAZINE 1% TOP CREAM 50 GM JAR TP SCH (12:02)
--- NOTE | 2017-01-01 12:18 | PN ---
Teaching Attending Note Name of Resident: Katrin Lee ATTENDING PHYSICIAN STATEMENT I saw and evaluated the patient. I reviewed the resident's note and discussed the case with the resident. I agree with the resident's findings and plan as documented. SUBJECTIVE: Pt seen and examined in the ICU. In rapid atrial fibrillation again this AM on cardizem gtt. Denies palpitations, shortness of breath or chest pain but on ventimask 40%. +flatus but no BM. Surgical site pain controlled. OBJECTIVE: Last Vital Signs Temp Pulse Resp BP Pulse Ox 98.1 F 125 H 25 H 101/73 91 L 01/01/17 06:00 01/01/17 12:00 01/01/17 12:00 01/01/17 12:00 01/01/17 10:00 Intake & Output 12/29/16 12/30/16 12/31/16 01/01/17 23:59 23:59 23:59 23:59 Intake Total 270 6532.5 900 1620 Output Total 2700 1425 600 Balance 270 3832.5 -525 1020 Weight 192 lb 0.8 oz 189 lb 6 oz 200 lb 14.4 oz 204 lb 14.4 oz Gen: mildly tachypneic at rest Heart: tachycardic, irregular Lung: scattered rhonchi Abd: soft, nontender Ext: + edema CBC, BMP 01/01/17 05:10 01/01/17 05:10 Active Medications Albuterol/Ipratropium (Duoneb -) 1 amp NEB Q6H PRN PRN Reason: SHORTNESS OF BREATH Diphenhydramine HCl (Benadryl -) 25 mg PO HS [facility] Last Admin: 12/31/16 21:59 Dose: 25 mg Furosemide (Lasix -) 40 mg PO DAILY [facility] Last Admin: 01/01/17 10:08 Dose: 40 mg Lactated Ringer's (Lactated Ringers Solution) 1,000 mls @ 75 mls/hr IV ASDIR [facility] Last Admin: 12/31/16 21:51 Dose: 75 mls/hr Ertapenem 1 gm/ Sodium (Chloride) 50 mls @ 50 mls/hr IVPB DAILY [facility] PRN Reason: Protocol Last Admin: 01/01/17 09:34 Dose: 50 mls/hr Vancomycin HCl 1,250 mg/ (Dextrose) 250 mls @ 166.667 mls/hr IVPB BID [facility] PRN Reason: Protocol Last Admin: 01/01/17 10:43 Dose: 166.667 mls/hr Diltiazem HCl 125 mg/ Dextrose 125 mls @ 5 mls/hr IVPB TITR [facility]; 5 MG/HR PRN Reason: Protocol Last Titration: 01/01/17 10:19 Dose: 15 mg/hr Insulin Aspart (Novolog Vial Sliding Scale -) 1 vial SQ ACHS [facility] PRN Reason: Protocol Last Admin: 01/01/17 12:02 Dose: 2 units Losartan Potassium (Cozaar -) 25 mg PO DAILY [facility] Last Admin: 01/01/17 10:08 Dose: 25 mg Methadone HCl 40 mg/ Methadone (HCl 30 mg) 70 mg PO DAILY@0600 [facility] Last Admin: 01/01/17 06:03 Dose: 70 mg Metoprolol Tartrate (Lopressor -) 50 mg PO BID [facility] Last Admin: 01/01/17 09:38 Dose: 50 mg Morphine Sulfate (Morphine Injection -) 4 mg IVPUSH Q4H PRN PRN Reason: PAIN Last Admin: 12/31/16 20:39 Dose: 4 mg Nystatin (Nystatin Oral Suspension -) 500,000 units PO Q6HPO [facility] Last Admin: 01/01/17 12:04 Dose: 500,000 units Rivaroxaban (Xarelto -) 20 mg PO DAILY [facility] Last Admin: 01/01/17 09:37 Dose: 20 mg Silver Sulfadiazine (Silvadene -) 1 applic TP DAILY [facility] Last Admin: 01/01/17 12:02 Dose: 1 applic ASSESSMENT AND PLAN: s/p Aorto-bifemoral Bypass 5/3 Paroxysmal Atrial Fibrillation with RVR PAD LE Ulcers/Cellulitis LV Diastolic Dysfunction COPD Smoker - continue cardizem gtt - lopressor IVP, PO - continue anticoagulation, monitor H/H - continue antibiotics - start clears - d/c IVF if tolerating clears - pain control - incentive spirometry - inhaled bronchodilators - O2 to keep SpO2 >90% - OOB to chair - continue ICU monitoring critical care time spent in reviewing chart, evaluating patient and formulating plan 35 min
[2017-01-01] MEDS: ALBUTEROL SO4 2.5/IPRATROPIUM 0.5 INH SOL 3 ML VIAL.NEB. NEB PRN ×2 (14:45→20:25)
--- NOTE | 2017-01-01 15:15 | PN ---
Physical Exam: SUBJECTIVE: Patient seen and examined. He is feeling good today, no complaints. He is on ventimask 40% this Am bc of Oxyg Sat in 80s, increased to 50 %. OBJECTIVE: Vital Signs Period Temp Pulse Resp BP Sys/Chatterjee Pulse Ox Last 24 Hr 98.1 F-98.7 F 74-186 17-26 81-157/39-97 91-97 GENERAL: The patient is awake, alert, and fully oriented, in no acute distress. HEAD: Normal with no signs of trauma. EYES: PERRL, extraocular movements intact, sclera anicteric, conjunctiva clear. No ptosis. ENT: Ears normal, nares patent, oropharynx clear without exudates, moist mucous membranes. NECK: Trachea midline, full range of motion, supple. LUNGS: Breath sounds equal, clear to auscultation bilaterally, no wheezes, no crackles, no accessory muscle use. HEART: Regular rate and rhythm, S1, S2 without murmur, rub or gallop. ABDOMEN: Soft, nontender, nondistended, normoactive bowel sounds, no guarding, no rebound, no hepatosplenomegaly, no masses. EXTREMITIES: 2+ pulses, warm, well-perfused, no edema. NEUROLOGICAL: No facial asymmetry. Normal speech, gait not observed. PSYCH: Normal mood, normal affect. SKIN: Warm, dry, normal turgor, no rashes, longitudinal scar in abdomen, no erythema, drainage. Laboratory Results - last 24 hr 12/29/16 12/31/16 12/31/16 13:51 16:53 17:00 WBC RBC Hgb Hct MCV MCHC RDW Plt Count MPV Neutrophils % Lymphocytes % Monocytes % Differential Comment Platelet Estimate Sodium Potassium Chloride Carbon Dioxide Anion Gap BUN Creatinine Creat Clearance w eGFR POC Glucometer 140.43116 Random Glucose Calcium Magnesium 2.1 D Total Bilirubin AST ALT Alkaline Phosphatase Total Protein Albumin Crossmatch See Detail 12/31/16 12/31/16 01/01/17 17:00 22:10 05:10 WBC 24.3 H RBC 4.01 Hgb 11.8 Hct 36.8 MCV 91.8 MCHC 31.9 L RDW 16.2 H Plt Count 176 MPV 10.6 Neutrophils % 90.0 H Lymphocytes % 3.0 L D Monocytes % 7.0 Differential Comment Manual diff done Platelet Estimate Adequate Sodium Potassium 4.0 Chloride Carbon Dioxide Anion Gap BUN Creatinine Creat Clearance w eGFR POC Glucometer 151.00221 Random Glucose Calcium Magnesium Total Bilirubin AST ALT Alkaline Phosphatase Total Protein Albumin Crossmatch 01/01/17 01/01/17 05:10 06:16 WBC RBC Hgb Hct MCV MCHC RDW Plt Count MPV Neutrophils % Lymphocytes % Monocytes % Differential Comment Platelet Estimate Sodium 139 Potassium 4.4 Chloride 101 Carbon Dioxide 29 D Anion Gap 9 BUN 15 Creatinine 1.1 Creat Clearance w eGFR > 60 POC Glucometer 169.28245 Random Glucose 123 H D Calcium 8.5 Magnesium 1.9 Total Bilirubin 0.8 D AST 49 H D ALT 32 D Alkaline Phosphatase 82 Total Protein 5.5 L Albumin 2.6 L Crossmatch Active Medications Generic Name Dose Route Start Last Admin Trade Name Freq PRN Reason Stop Dose Admin Albuterol/Ipratropium 1 amp 12/31/16 13:34 01/01/17 14:45 Duoneb - NEB 1 amp Q6H PRN Administration SHORTNESS OF BREATH Diphenhydramine HCl 25 mg 12/30/16 22:00 12/31/16 21:59 Benadryl - PO 25 mg HS [facility] Administration Furosemide 40 mg 12/31/16 10:00 01/01/17 10:08 Lasix - PO 40 mg DAILY [facility] Administration Ertapenem 1 gm/ Sodium 50 mls @ 50 mls/hr 12/31/16 10:00 01/01/17 09:34 Chloride IVPB 50 mls/hr DAILY [facility] Administration Protocol Vancomycin HCl 1,250 mg/ 250 mls @ 166.667 mls/hr 12/30/16 22:00 01/01/17 10:43 Dextrose IVPB 166.667 mls/hr BID [facility] Administration Protocol Diltiazem HCl 125 mg/ Dextrose 125 mls @ 5 mls/hr 12/31/16 12:45 01/01/17 13:02 IVPB Not Given TITR [facility] Protocol 5 MG/HR Insulin Aspart 1 vial 12/30/16 22:00 01/01/17 12:02 Novolog Vial Sliding Scale - SQ 2 units ACHS [facility] Administration Protocol Losartan Potassium 25 mg 12/31/16 10:00 01/01/17 10:08 Cozaar - PO 25 mg DAILY [facility] Administration Methadone HCl 40 mg/ Methadone 70 mg 12/31/16 06:00 01/01/17 06:03 HCl 30 mg PO 70 mg DAILY@0600 [facility] Administration Metoprolol Tartrate 50 mg 12/30/16 22:00 01/01/17 09:38 Lopressor - PO 50 mg BID [facility] Administration Morphine Sulfate 4 mg 12/30/16 17:06 12/31/16 20:39 Morphine Injection - IVPUSH 4 mg Q4H PRN Administration PAIN Nystatin 500,000 units 12/31/16 00:00 01/01/17 12:04 Nystatin Oral Suspension - PO 500,000 units Q6HPO [facility] Administration Rivaroxaban 20 mg 12/31/16 10:00 01/01/17 09:37 Xarelto - PO 20 mg DAILY [facility] Administration Silver Sulfadiazine 1 applic 12/31/16 10:00 01/01/17 12:02 Silvadene - TP 1 applic DAILY [facility] Administration ASSESSMENT/PLAN: 61 year old male with PMHx of newly diagnosed a.fib (on Xarelto), CHF, HTN, PAD R>L and venous ulcerations to b/l lower ext, on methadone for 5 years for heroin , admitted with bilateral wound cellulitis with weeping and A fib with RVR, to which he self converted. Neuro: Awake, follows commands Insomnia - Benadryl 25mg HS CVS: PAD w/ distal aorta and external iliac occlusion - s/p aorto-bifemoral bypass day 2 - pulses palpable b/l, b/l foot warm A fib with RVR - started on cardiazem push and then drip - on Xaralto - on Lopressor 50 bid, added 10 mg IV push and 5 mg IV push - cardiology on case Diastolic dysfunction - Lasix 40mg daily - Losartan 25mg daily ID: B/l lower extremity cellulitis/venous stasis wounds - on Vancomcyin and eratapenem - Silvadene and Sekou bandage daily - ID on case -leukocytosis Endo: Newly diagnosed DM II - BGM, achs - insulin sliding scale - Metformin on discharge Methadone dependence/substance abuse hx - Methadone 70mg po daily Fluid: RL 75 ml/hr stopped electrolyte WNL nutrition; Clear liquids started dvt pro: on xarelto gi pro : pepcid dispo: icu Problem List - Problems (1) Atrial fibrillation with rapid ventricular response Code(s): I48.91 - UNSPECIFIED ATRIAL FIBRILLATION (2) CHF (congestive heart failure) Code(s): I50.9 - HEART FAILURE, UNSPECIFIED Qualifiers: Congestive heart failure type: diastolic Congestive heart failure chronicity: acute on chronic Qualified Code(s): I50.33 - Acute on chronic diastolic (congestive) heart failure (3) Cellulitis Code(s): L03.90 - CELLULITIS, UNSPECIFIED Qualifiers: Site of cellulitis of extremity: lower extremity Laterality: unspecified laterality (4) Methadone dependence Code(s): F11.20 - OPIOID DEPENDENCE, UNCOMPLICATED (5) PAD (peripheral artery disease) Code(s): I73.9 - PERIPHERAL VASCULAR DISEASE, UNSPECIFIED (6) S/P aorto-bifemoral bypass surgery Code(s): Z95.828 - PRESENCE OF OTHER VASCULAR IMPLANTS AND GRAFTS (7) Substance abuse Code(s): F19.10 - OTHER PSYCHOACTIVE SUBSTANCE ABUSE, UNCOMPLICATED Visit type - Emergency Visit Emergency Visit: Yes ED Registration Date: 12/22/16 Care time: The patient presented to the Emergency Department on the above date and was hospitalized for further evaluation of their emergent condition. - New Patient This patient is new to me today: Yes Date on this admission: 01/01/17 - Critical Care Critical Care patient: Yes Total Critical Care Time (in minutes): 45 Critical Care Statement: The care of this patient involved high complexity decision making to prevent further life threatening deterioration of the patient 's condition and/or to evalute & treat vital organ system(s) failure or risk of failure.
--- NOTE | 2017-01-01 15:26 | PN ---
Progress Note, Physician History of Present Illness: PMD: Trisha Rodas POD#2 aorto-bifemoral bypass, now in rapid afib 120s with palpitations, denies chest pain or dyspnea, BP stable. - Current Medication List Current Medications: Active Medications Albuterol/Ipratropium (Duoneb -) 1 amp NEB Q6H PRN PRN Reason: SHORTNESS OF BREATH Last Admin: 01/01/17 14:45 Dose: 1 amp Diphenhydramine HCl (Benadryl -) 25 mg PO HS [facility] Last Admin: 12/31/16 21:59 Dose: 25 mg Furosemide (Lasix -) 40 mg PO DAILY [facility] Last Admin: 01/01/17 10:08 Dose: 40 mg Ertapenem 1 gm/ Sodium (Chloride) 50 mls @ 50 mls/hr IVPB DAILY [facility] PRN Reason: Protocol Last Admin: 01/01/17 09:34 Dose: 50 mls/hr Vancomycin HCl 1,250 mg/ (Dextrose) 250 mls @ 166.667 mls/hr IVPB BID [facility] PRN Reason: Protocol Last Admin: 01/01/17 10:43 Dose: 166.667 mls/hr Diltiazem HCl 125 mg/ Dextrose 125 mls @ 5 mls/hr IVPB TITR [facility]; 5 MG/HR PRN Reason: Protocol Last Admin: 01/01/17 13:02 Dose: Not Given Insulin Aspart (Novolog Vial Sliding Scale -) 1 vial SQ ACHS [facility] PRN Reason: Protocol Last Admin: 01/01/17 12:02 Dose: 2 units Losartan Potassium (Cozaar -) 25 mg PO DAILY [facility] Last Admin: 01/01/17 10:08 Dose: 25 mg Methadone HCl 40 mg/ Methadone (HCl 30 mg) 70 mg PO DAILY@0600 [facility] Last Admin: 01/01/17 06:03 Dose: 70 mg Metoprolol Tartrate (Lopressor -) 50 mg PO BID [facility] Last Admin: 01/01/17 09:38 Dose: 50 mg Morphine Sulfate (Morphine Injection -) 4 mg IVPUSH Q4H PRN PRN Reason: PAIN Last Admin: 12/31/16 20:39 Dose: 4 mg Nystatin (Nystatin Oral Suspension -) 500,000 units PO Q6HPO [facility] Last Admin: 01/01/17 12:04 Dose: 500,000 units Rivaroxaban (Xarelto -) 20 mg PO DAILY [facility] Last Admin: 01/01/17 09:37 Dose: 20 mg Silver Sulfadiazine (Silvadene -) 1 applic TP DAILY [facility] Last Admin: 01/01/17 12:02 Dose: 1 applic - Objective Vital Signs: Vital Signs Temperature 98.5 F 01/01/17 14:00 Pulse Rate 125 H 01/01/17 15:00 Respiratory Rate 20 01/01/17 15:00 Blood Pressure 109/85 01/01/17 15:00 O2 Sat by Pulse Oximetry (%) 91 L 01/01/17 10:00 Constitutional: Yes: No Distress, Calm Neck: Yes: Supple Cardiovascular: Yes: Pulse Irregular Respiratory: Yes: Regular, Diminished, On Venti-Mask Gastrointestinal: Yes: Normal Bowel Sounds, Soft Edema: Yes Edema: LLE: 1+, RLE: 1+ Labs: CBC, BMP 01/01/17 05:10 01/01/17 05:10 INR, PTT INR 1.22 (0.82-1.09) H 12/31/16 05:35 - ....Imaging EKG: Report Reviewed (Tele: Classana[facility]) Problem List - Problems (1) Atrial fibrillation with rapid ventricular response Code(s): I48.91 - UNSPECIFIED ATRIAL FIBRILLATION (2) Cellulitis Code(s): L03.90 - CELLULITIS, UNSPECIFIED Qualifiers: Site of cellulitis of extremity: lower extremity Laterality: unspecified laterality (3) Methadone dependence Code(s): F11.20 - OPIOID DEPENDENCE, UNCOMPLICATED (4) PAD (peripheral artery disease) Code(s): I73.9 - PERIPHERAL VASCULAR DISEASE, UNSPECIFIED (5) Substance abuse Code(s): F19.10 - OTHER PSYCHOACTIVE SUBSTANCE ABUSE, UNCOMPLICATED (6) Diastolic dysfunction Code(s): I51.9 - HEART DISEASE, UNSPECIFIED (7) S/P aorto-bifemoral bypass surgery Code(s): Z95.828 - PRESENCE OF OTHER VASCULAR IMPLANTS AND GRAFTS Assessment/Plan 12/2016 P-Myoview showing small mild inferior ischemia with preserved LVEF 71% 1. Persistent atrial fibrillation with RVR [id number] score of 2 2. CAD angina pectoris 3. LV diastolic dysfunction with chronic class 0-I NYHA classification LV failure 4. PAD s/p Aorto-bifemoral Bypass 12/30 5. Bilateral lower extremity ulcers/cellulitis 6. COPD/smoking PLAN: 1. Continue Xarelto 20 qpm post-op, Lopressor 50 bid, Cozaar 25 qd and Lasix 40 qd as hemodynamics tolerate, On Cardizem gtt with IV Lopressor and Cardizem boluses as needed for rate-control 2. Antibiotic course per the primary team 3. Analgesia as needed, incentive spirometry, inhaled bronchodilators, O2 to keep SpO2 >90%, OOB to chair
[2017-01-01] MEDS ORDERED: METOPROLOL TARTRATE 50 MG TABLET (FP) PO ONE (16:00)
--- NOTE | 2017-01-01 16:05 | PN ---
Physical Exam: SUBJECTIVE: Patient seen and examined. He states he feels well, denies chest pain. OBJECTIVE: POD#2 of aorto-bifemoral bypass. Rapid afib today 120s-130s Started on a cardizem drip Vital Signs Period Temp Pulse Resp BP Sys/Chatterjee Pulse Ox Last 24 Hr 98.1 F-98.7 F 74-186 17-26 81-157/56-97 91-97 GENERAL: The patient is awake, alert, and fully oriented, in no acute distress. HEAD: Normal with no signs of trauma. NECK: Trachea midline, full range of motion, supple. LUNGS: Breath sounds equal, clear to auscultation bilaterally, no wheezes, no crackles, no accessory muscle use. ABDOMEN: s/p aorta fem bypass, abdomen slightly distended, NGT removed, hypoactive bowel sounds, +pain/discomfort of abd., dressing CDI NEUROLOGICAL: Normal speech, gait not observed. PSYCH: Normal mood, normal affect. Laboratory Results - last 24 hr 12/29/16 12/31/16 12/31/16 13:51 16:53 17:00 WBC RBC Hgb Hct MCV MCHC RDW Plt Count MPV Neutrophils % Lymphocytes % Monocytes % Differential Comment Platelet Estimate Sodium Potassium Chloride Carbon Dioxide Anion Gap BUN Creatinine Creat Clearance w eGFR POC Glucometer 140.74955 Random Glucose Calcium Magnesium 2.1 D Total Bilirubin AST ALT Alkaline Phosphatase Total Protein Albumin Crossmatch See Detail 12/31/16 12/31/16 01/01/17 17:00 22:10 05:10 WBC 24.3 H RBC 4.01 Hgb 11.8 Hct 36.8 MCV 91.8 MCHC 31.9 L RDW 16.2 H Plt Count 176 MPV 10.6 Neutrophils % 90.0 H Lymphocytes % 3.0 L D Monocytes % 7.0 Differential Comment Manual diff done Platelet Estimate Adequate Sodium Potassium 4.0 Chloride Carbon Dioxide Anion Gap BUN Creatinine Creat Clearance w eGFR POC Glucometer 151.64254 Random Glucose Calcium Magnesium Total Bilirubin AST ALT Alkaline Phosphatase Total Protein Albumin Crossmatch 01/01/17 01/01/17 05:10 06:16 WBC RBC Hgb Hct MCV MCHC RDW Plt Count MPV Neutrophils % Lymphocytes % Monocytes % Differential Comment Platelet Estimate Sodium 139 Potassium 4.4 Chloride 101 Carbon Dioxide 29 D Anion Gap 9 BUN 15 Creatinine 1.1 Creat Clearance w eGFR > 60 POC Glucometer 169.49583 Random Glucose 123 H D Calcium 8.5 Magnesium 1.9 Total Bilirubin 0.8 D AST 49 H D ALT 32 D Alkaline Phosphatase 82 Total Protein 5.5 L Albumin 2.6 L Crossmatch Active Medications Generic Name Dose Route Start Last Admin Trade Name Freq PRN Reason Stop Dose Admin Albuterol/Ipratropium 1 amp 12/31/16 13:34 01/01/17 14:45 Duoneb - NEB 1 amp Q6H PRN Administration SHORTNESS OF BREATH Diphenhydramine HCl 25 mg 12/30/16 22:00 12/31/16 21:59 Benadryl - PO 25 mg HS [facility] Administration Furosemide 40 mg 12/31/16 10:00 01/01/17 10:08 Lasix - PO 40 mg DAILY [facility] Administration Ertapenem 1 gm/ Sodium 50 mls @ 50 mls/hr 12/31/16 10:00 01/01/17 09:34 Chloride IVPB 50 mls/hr DAILY [facility] Administration Protocol Vancomycin HCl 1,250 mg/ 250 mls @ 166.667 mls/hr 12/30/16 22:00 01/01/17 10:43 Dextrose IVPB 166.667 mls/hr BID [facility] Administration Protocol Diltiazem HCl 125 mg/ Dextrose 125 mls @ 5 mls/hr 12/31/16 12:45 01/01/17 13:02 IVPB Not Given TITR [facility] Protocol 5 MG/HR Insulin Aspart 1 vial 12/30/16 22:00 01/01/17 12:02 Novolog Vial Sliding Scale - SQ 2 units ACHS [facility] Administration Protocol Losartan Potassium 25 mg 12/31/16 10:00 01/01/17 10:08 Cozaar - PO 25 mg DAILY [facility] Administration Methadone HCl 40 mg/ Methadone 70 mg 12/31/16 06:00 01/01/17 06:03 HCl 30 mg PO 70 mg DAILY@0600 [facility] Administration Metoprolol Tartrate 50 mg 12/30/16 22:00 01/01/17 09:38 Lopressor - PO 50 mg BID [facility] Administration Morphine Sulfate 4 mg 12/30/16 17:06 12/31/16 20:39 Morphine Injection - IVPUSH 4 mg Q4H PRN Administration PAIN Nystatin 500,000 units 12/31/16 00:00 01/01/17 12:04 Nystatin Oral Suspension - PO 500,000 units Q6HPO [facility] Administration Rivaroxaban 20 mg 12/31/16 10:00 01/01/17 09:37 Xarelto - PO 20 mg DAILY [facility] Administration Silver Sulfadiazine 1 applic 12/31/16 10:00 01/01/17 12:02 Silvadene - TP 1 applic DAILY [facility] Administration ASSESSMENT/PLAN: Patient is a 61 year old male with significant past medical history of of newly diagnosed atrial fibrillation (on Xarelto), CHF, HTN, PAD, and venous ulcerations on bilateral lower extremities, opioid dependence (on methadone). He was admitted on 12/22/2016 with bilateral wound cellulitis with weeping and A fib with RVR. Vascular: PAD with distal aorta and external iliac occlusion Assessment/Plan: s/p aorto-bifemoral bypass POD #2 bilateral foot pulses warm to touch, denies pain or discomfort Monitor for any pain PT when more stable Bilateral venous stasis wounds Assessment/Plan: On going wound care with Silvadene Vascular following Cardiology: Afib with RVR Assessment/Plan: Continue Xarelto, Lopressor 50mg bid, Cozaar 25 qd, Lasix 40mg Started on Cardizem gtt with IV Lopressor for rate-control Cardiology following Diastolic dysfunction Assessment/Plan: Lasix 40mg daily, Losartan 25mg daily Endocrine: Diabetes mellitus Assessment/Plan: monitor BGMs, sliding scale [id number] 8.6 Psyche: Polysubstance abuse Assessment/Plan: Methadone 70mg daily F.E.N. Fluids: clears/sips of water Electrolytes: monitor bmp Nutrition: clears Prophylaxis: DVT: On Xarelto GI: Protonix Disposition: Requires ICU monitoring. Full Code. Visit type - Emergency Visit Emergency Visit: Yes ED Registration Date: 12/22/16 Care time: The patient presented to the Emergency Department on the above date and was hospitalized for further evaluation of their emergent condition. - New Patient This patient is new to me today: No - Critical Care Critical Care patient: Yes Total Critical Care Time (in minutes): 45 Critical Care Statement: The care of this patient involved high complexity decision making to prevent further life threatening deterioration of the patient 's condition and/or to evalute & treat vital organ system(s) failure or risk of failure.
[2017-01-01] MEDS ORDERED: SODIUM CHLORIDE NASAL SPRAY 44 ML BOTTLE NS PRN (17:07)
--- NOTE | 2017-01-01 17:07 | PATH ---
Surgical Pathology Report Patient Name: JANINA MARCOS [facility]. Rec. 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 Specimen(s) Received PLAQUE Clinical History Atrial fib rapid ventricula Aorta bifemoral bypass Final Diagnosis BLOOD VESSEL, ENDARTERECTOMY: ATHEROMATOUS MATERIAL CONSISTENT WITH ATHEROSCLEROTIC PLAQUE. Electronically Signed Vitaliy Bourne M.D. Gross Description Received in formalin labeled "plaque," is a 4.0 x 3.3 x 0.6 cm aggregate of granados portions of plaque. Recruitment Advertising Manager sections are submitted in one cassette. /12/31/2016 saudi12/31/2016
[2017-01-01] MEDS ORDERED: dilTIAZem HCL 125 MG/25 ML - 5 ML VIAL ONE (18:29)
[2017-01-01] MEDS: diphenhydrAMINE HCL 25 MG CAPSULE (FP) PO SCH (21:50)
[2017-01-01] MEDS: morphine CARPU-JECT 4 MG/1 ML DISP.SYRIN IVPUSH PRN (21:50)
[2017-01-02] MEDS: NYSTATIN 500,000 UNITS/5 ML SUSPENSION PO SCH ×4 (01:00→17:32)
[2017-01-02] MEDS ORDERED: dilTIAZem HCL 125 MG/25 ML - 5 ML VIAL ONE (05:51)
[2017-01-02] MEDS: INSULIN SLIDING SCALE (NOVOLOG) 1 VIAL SQ SCH ×4 (06:00→22:51)
[2017-01-02 06:22] LABS: BASOPHIL 0.3 % (0-2.0); MCH 29.8 pg (25.7-33.7); MCHC 32.9 g/dl (32.0-35.9); MEAN CELL VOLUME 90.6 fl (80-96); MEAN PLT VOLUME 9.7 fl (7.5-11.1); NEUTROPHILS 85.5 % (42.8-82.8); PLATELET COUNT 158 K/MM3 (134-434); RDW 15.9 % (11.9-15.9); WHITE BLOOD COUNT 23.9 K/mm3 (4.0-10.0)
[2017-01-02 06:34] LABS: ALBUMIN 2.2 g/dl (3.4-5.0); ANION GAP 12 (8-16); CALCIUM 8.7 mg/dL (8.5-10.1); CO2 27 mmol/L (21-32); GLUCOSE,RANDOM 114 mg/dL (74-106)
[2017-01-02 06:39] LABS: ALK PHOS 77 U/L (45-117); BILIRUBIN,TOTAL 1.4 mg/dL (0.2-1.0); COCKROFT - GAULT 92.78; CREATININE 1.1 mg/dL (0.7-1.3); SGOT/AST 41 U/L (15-37); SGPT/ALT 32 U/L (12-78); TOT PROT 5.2 g/dl (6.4-8.2)
[2017-01-02] MEDS ORDERED: METHADONE HCL 10 MG TABLET ONE (07:59)
[2017-01-02] MEDS ORDERED: METHADONE HCL 40 MG DISPERSABLE TABLET ONE (07:59)
[2017-01-02] MEDS: METHADONE 40 MG, METHADONE 30 MG PO SCH (08:00)
--- NOTE | 2017-01-02 08:34 | PN ---
Progress Note (short form) - Note Progress Note: Chief Complaint: Events noted notes reviewed, denies any chest pain or dyspnea, remains in atrial fibrillation with improved rates off of IV Cardizem History of Present Illness: Seen and examined in the ICU. Events noted notes reviewed, denies any chest pain or dyspnea, remains in atrial fibrillation with improved rates off of IV Cardizem Recommend initiation of antiarrhythmics therapy, Amiodarone in view of persistent atrial fibrillation - Current Medication List Current Medications Albuterol/Ipratropium (Duoneb -) 1 amp NEB Q6H PRN PRN Reason: SHORTNESS OF BREATH Last Admin: 01/01/17 20:25 Dose: 1 amp Diphenhydramine HCl (Benadryl -) 25 mg PO HS [facility] Last Admin: 01/01/17 21:50 Dose: 25 mg Furosemide (Lasix -) 40 mg PO DAILY [facility] Last Admin: 01/01/17 10:08 Dose: 40 mg Ertapenem 1 gm/ Sodium (Chloride) 50 mls @ 50 mls/hr IVPB DAILY [facility] PRN Reason: Protocol Last Admin: 01/01/17 09:34 Dose: 50 mls/hr Vancomycin HCl 1,250 mg/ (Dextrose) 250 mls @ 166.667 mls/hr IVPB BID [facility] PRN Reason: Protocol Last Admin: 01/01/17 21:50 Dose: 166.667 mls/hr Diltiazem HCl 125 mg/ Dextrose 125 mls @ 5 mls/hr IVPB TITR [facility]; 5 MG/HR PRN Reason: Protocol Last Titration: 01/02/17 07:00 Dose: 0 mg/hr Insulin Aspart (Novolog Vial Sliding Scale -) 1 vial SQ ACHS [facility] PRN Reason: Protocol Last Admin: 01/02/17 06:00 Dose: Not Given Losartan Potassium (Cozaar -) 25 mg PO DAILY [facility] Last Admin: 01/01/17 10:08 Dose: 25 mg Methadone HCl 40 mg/ Methadone (HCl 30 mg) 70 mg PO DAILY@0600 [facility] Last Admin: 01/02/17 08:00 Dose: 70 mg Metoprolol Tartrate (Lopressor -) 50 mg PO BID [facility] Last Admin: 01/01/17 21:50 Dose: 50 mg Morphine Sulfate (Morphine Injection -) 4 mg IVPUSH Q4H PRN PRN Reason: PAIN Last Admin: 01/01/17 21:50 Dose: 4 mg Nystatin (Nystatin Oral Suspension -) 500,000 units PO Q6HPO [facility] Last Admin: 01/02/17 07:09 Dose: Not Given Rivaroxaban (Xarelto -) 20 mg PO DAILY [facility] Last Admin: 01/01/17 09:37 Dose: 20 mg Silver Sulfadiazine (Silvadene -) 1 applic TP DAILY [facility] Last Admin: 01/01/17 12:02 Dose: 1 applic Sodium Chloride ([place] Nasal [place] -) 2 spray NS BID PRN PRN Reason: NASAL CONGESTION - Review of Systems Cardiovascular: As noted above Respiratory: denies: denies: Cough or Sputum Production Gastrointestinal: denies: Nausea, Vomiting, Diarrhea, Constipation or Abdominal Discomfort Musculoskeletal: No Symptoms Reported Endocrine: No Symptoms Reported - Objective Vital Signs: Last Vital Signs Temp Pulse Resp BP Pulse Ox 98.1 F 111 H 14 93/66 92 L 01/02/17 06:00 01/02/17 07:00 01/02/17 07:00 01/02/17 07:00 01/01/17 20:32 Intake & Output 12/30/16 12/31/16 01/01/17 01/02/17 23:59 23:59 23:59 23:59 Intake Total 6532.5 900 3189 390 Output Total 2700 1425 1500 700 Balance 3832.5 -525 1689 -310 Weight 189 lb 6 oz 200 lb 14.4 oz 204 lb 14.4 oz 205 lb 1 oz Neck: Supple Negtaive JVD No Bruit Cardiovascular: S1 S2 Regular Rate Rhythm Respiratory: Clear to A&P Bilaterally Gastrointestinal: Soft Benign Normal Bowel Sounds Ext: Edema Bilaterally Labs: CBC, BMP 01/02/17 05:20 01/02/17 05:20 Hepatic Panel Total Bilirubin 1.4 mg/dL (0.2-1.0) H D 01/02/17 05:20 AST 41 U/L (15-37) H 01/02/17 05:20 ALT 32 U/L (12-78) 01/02/17 05:20 Alkaline Phosphatase 77 U/L (45-117) 01/02/17 05:20 Albumin 2.2 g/dl (3.4-5.0) L 01/02/17 05:20 Assessment/Plan ASSESSMENT: 1. Paroxysmal atrial fibrillation recurrent arrhythmia [id number] score of 2, on NOAC's 2. CAD angina pectoris 3. LV diastolic dysfunction with chronic class 0-I NYHA classification LV failure, compensated 4. PAD with distal aortic occlusion and common and external iliac artery occlusion post 5. Bilateral lower extremity ulcers/cellulitis, resolving 6. Non-compliance history PLAN: 1. Continue Xarelto 2. Continue Lopressor and titrate dose as needed and tolerated 3. Continue Cozaar 4. Add Amiodarone as outlined above 5. Antibiotic as per the primary team Araceli Brownlee M.D.
[2017-01-02] MEDS: AMIODARONE HCL 150 MG/3 ML VIAL IVPUSH ONE ×2 (08:42→10:42)
[2017-01-02] MEDS: METOPROLOL TARTRATE 5 MG/5 ML VIAL IVPUSH ONE ×2 (08:44→10:42)
--- NOTE | 2017-01-02 09:29 | PN ---
Physical Exam: SUBJECTIVE: Patient seen and examined. He is sitting up in bed in no acute distress. He denies chest pain or shortness of breath. He denies palpitations even when heart rate was in 160s. OBJECTIVE: Sitting up in bed tolerating clear liquid diet Was in rapid atrial fib. with RVR @160s this morning and was started on Amiodorone 200mg BID offal icer poultry now shows afib in 120s but BP low 90/69 He is alternating venti mask and 5 liters of nasal cannula, pulse ox 88-92% Abdominal dressing c/d/i Vital Signs Period Temp Pulse Resp BP Sys/Chatterjee Pulse Ox Last 24 Hr 98.1 F-99.7 F 89-186 14-25 85-144/55-97 90-92 GENERAL: The patient is awake, alert, and fully oriented, in no acute distress. HEAD: Normal with no signs of trauma. NECK: Trachea midline, full range of motion, supple. LUNGS: Breath sounds equal, clear to auscultation bilaterally, no wheezes, no crackles, no accessory muscle use. HEART: atrail fib in 120s on monitor ABDOMEN: s/p aorta fem bypass, abdomen slightly distended, NGT removed, hypoactive bowel sounds, +pain/discomfort of abd., dressing CDI NEUROLOGICAL: Normal speech, gait not observed. PSYCH: Normal mood, normal affect. Laboratory Results - last 24 hr 01/01/17 01/01/17 01/01/17 05:10 11:56 17:06 WBC RBC Hgb Hct MCV MCHC RDW Plt Count MPV Neutrophils % 90.0 H Lymphocytes % 3.0 L D Monocytes % 7.0 Eosinophils % Basophils % Differential Comment Manual diff done Platelet Estimate Adequate Sodium Potassium Chloride Carbon Dioxide Anion Gap BUN Creatinine Creat Clearance w eGFR POC Glucometer 163.46337 130.69833 Random Glucose Calcium Total Bilirubin AST ALT Alkaline Phosphatase Total Protein Albumin 01/01/17 01/02/17 01/02/17 21:59 05:20 05:20 WBC 23.9 H RBC 4.07 Hgb 12.1 Hct 36.8 MCV 90.6 MCHC 32.9 RDW 15.9 Plt Count 158 MPV 9.7 Neutrophils % 85.5 H Lymphocytes % 4.8 L D Monocytes % 9.4 Eosinophils % 0.0 D Basophils % 0.3 Differential Comment Platelet Estimate Sodium 137 Potassium 3.7 Chloride 98 Carbon Dioxide 27 Anion Gap 12 BUN 17 Creatinine 1.1 Creat Clearance w eGFR > 60 POC Glucometer 155.28257 Random Glucose 114 H Calcium 8.7 Total Bilirubin 1.4 H D AST 41 H ALT 32 Alkaline Phosphatase 77 Total Protein 5.2 L Albumin 2.2 L 01/02/17 05:54 WBC RBC Hgb Hct MCV MCHC RDW Plt Count MPV Neutrophils % Lymphocytes % Monocytes % Eosinophils % Basophils % Differential Comment Platelet Estimate Sodium Potassium Chloride Carbon Dioxide Anion Gap BUN Creatinine Creat Clearance w eGFR POC Glucometer 147.87530 Random Glucose Calcium Total Bilirubin AST ALT Alkaline Phosphatase Total Protein Albumin Active Medications Generic Name Dose Route Start Last Admin Trade Name Freq PRN Reason Stop Dose Admin Albuterol/Ipratropium 1 amp 12/31/16 13:34 01/01/17 20:25 Duoneb - NEB 1 amp Q6H PRN Administration SHORTNESS OF BREATH Amiodarone HCl 200 mg 01/02/17 10:00 Cordarone - PO BID [facility] Diphenhydramine HCl 25 mg 12/30/16 22:00 01/01/17 21:50 Benadryl - PO 25 mg HS [facility] Administration Furosemide 40 mg 12/31/16 10:00 01/01/17 10:08 Lasix - PO 40 mg DAILY [facility] Administration Ertapenem 1 gm/ Sodium 50 mls @ 50 mls/hr 12/31/16 10:00 01/01/17 09:34 Chloride IVPB 50 mls/hr DAILY [facility] Administration Protocol Vancomycin HCl 1,250 mg/ 250 mls @ 166.667 mls/hr 12/30/16 22:00 01/01/17 21:50 Dextrose IVPB 166.667 mls/hr BID [facility] Administration Protocol Insulin Aspart 1 vial 12/30/16 22:00 01/02/17 06:00 Novolog Vial Sliding Scale - SQ Not Given ACHS [facility] Protocol Losartan Potassium 25 mg 12/31/16 10:00 01/01/17 10:08 Cozaar - PO 25 mg DAILY [facility] Administration Methadone HCl 40 mg/ Methadone 70 mg 12/31/16 06:00 01/02/17 08:00 HCl 30 mg PO 70 mg DAILY@0600 [facility] Administration Metoprolol Tartrate 50 mg 01/02/17 14:00 Lopressor - PO TID [facility] Morphine Sulfate 4 mg 12/30/16 17:06 01/01/17 21:50 Morphine Injection - IVPUSH 4 mg Q4H PRN Administration PAIN Nystatin 500,000 units 12/31/16 00:00 01/02/17 07:09 Nystatin Oral Suspension - PO Not Given Q6HPO [facility] Rivaroxaban 20 mg 12/31/16 10:00 01/01/17 09:37 Xarelto - PO 20 mg DAILY [facility] Administration Silver Sulfadiazine 1 applic 12/31/16 10:00 01/01/17 12:02 Silvadene - TP 1 applic DAILY [facility] Administration Sodium Chloride 2 spray 01/01/17 17:07 [place] Nasal [place] - NS BID PRN NASAL CONGESTION ASSESSMENT/PLAN: Patient is a 61 year old male with significant past medical history of of newly diagnosed atrial fibrillation (on Xarelto), CHF, HTN, PAD, and venous ulcerations on bilateral lower extremities, opioid dependence (on methadone). He was admitted on 12/22/2016 with bilateral wound cellulitis with weeping and A fib with RVR. Vascular: PAD with distal aorta and external iliac occlusion Assessment/Plan: s/p aorto-bifemoral bypass POD #3 bilateral foot pulses warm to touch, denies pain or discomfort Monitor for any pain PT when more stable Bilateral venous stasis wounds Assessment/Plan: On going wound care with Silvadene Vascular following Cardiology: Afib with RVR Assessment/Plan: Continue [id number] daily, Lopressor 50mg TID, Cozaar 25 qd, Lasix 40mg Started on Amiodorone 200mg BID for rate control Was in rapid atrial fib. with RVR @160s this morning and was started on Amiodorone 200mg BID offal icer poultry now shows afib in 120s but BP low 90/69 Patient remains asymptomatic Cardiology following Diastolic dysfunction Assessment/Plan: Lasix 40mg daily, Losartan 25mg daily Endocrine: Diabetes mellitus Assessment/Plan: monitor BGMs, sliding scale [id number] 8.6 Psyche: Polysubstance abuse Assessment/Plan: Methadone 70mg daily Morphine 4mg IV prn for breakthrough pain Monitor pain levels F.E.N. Fluids: clears/sips of water Electrolytes: monitor bmp Nutrition: clears Prophylaxis: DVT: On Xarelto 20mg daily GI: Protonix 40mg daily Disposition: Requires ICU monitoring. Full Code. Visit type - Emergency Visit Emergency Visit: Yes ED Registration Date: 12/22/16 Care time: The patient presented to the Emergency Department on the above date and was hospitalized for further evaluation of their emergent condition. - New Patient This patient is new to me today: No - Critical Care Critical Care patient: Yes Total Critical Care Time (in minutes): 45 Critical Care Statement: The care of this patient involved high complexity decision making to prevent further life threatening deterioration of the patient 's condition and/or to evalute & treat vital organ system(s) failure or risk of failure. - Discharge Referral Referred to [facility] Med P.C.: No
[2017-01-02] MEDS ORDERED: SODIUM CHLORIDE 500 ML IV STA (10:17)
[2017-01-02] MEDS ORDERED: PT OWN MED DRAWER 7, Y5N ONE ×2 (10:38→21:17)
[2017-01-02] MEDS: ERTAPENEM SODIUM 1 GM in SODIUM CHLORIDE 50 ML IVPB SCH (10:40)
[2017-01-02] MEDS: AMIODARONE HCL 200 MG TABLET (FP) PO SCH ×2 (10:41→21:23)
[2017-01-02] MEDS: LOSARTAN POTASSIUM 25 MG TABLET PO SCH (10:41)
[2017-01-02] MEDS: RIVAROXABAN 20 MG TABLET PO SCH (10:41)
[2017-01-02] MEDS: FUROSEMIDE 40 MG TABLET (FP) PO SCH (10:42)
[2017-01-02] MEDS: VANCOMYCIN 1,250 MG in DEXTROSE 5%-WATER - 250 ML IVPB SCH ×2 (10:44→21:23)
[2017-01-02] MEDS: SILVER SULFADIAZINE 1% TOP CREAM 50 GM JAR TP SCH (10:45)
--- NOTE | 2017-01-02 11:07 | PN ---
Progress Note (short form) - Note Progress Note: Vascular Surgery POD 3 No complaints Episodes of A fib with rapid VR Abd full, soft Wound dry Small amount of flatus Feet warm Labs reviewed - WBC remains elevated Try to get OOB Diurese.
--- NOTE | 2017-01-02 12:34 | PN ---
Progress Note (short form) - Note Progress Note: PULM / CRITICAL CARE PROGRESS NOTE: Pt seen and examined in the ICU 24 HOUR EVENTS: -RVR off of Dilt drip - adjusting PO meds -Other Current Medications Albuterol/Ipratropium (Duoneb -) 1 amp NEB Q6H PRN PRN Reason: SHORTNESS OF BREATH Last Admin: 01/01/17 20:25 Dose: 1 amp Amiodarone HCl (Cordarone -) 200 mg PO BID [facility] Last Admin: 01/02/17 10:41 Dose: 200 mg Diphenhydramine HCl (Benadryl -) 25 mg PO HS [facility] Last Admin: 01/01/17 21:50 Dose: 25 mg Furosemide (Lasix -) 40 mg PO DAILY [facility] Last Admin: 01/02/17 10:42 Dose: Not Given Ertapenem 1 gm/ Sodium (Chloride) 50 mls @ 50 mls/hr IVPB DAILY [facility] PRN Reason: Protocol Last Admin: 01/02/17 10:40 Dose: 50 mls/hr Vancomycin HCl 1,250 mg/ (Dextrose) 250 mls @ 166.667 mls/hr IVPB BID [facility] PRN Reason: Protocol Last Admin: 01/02/17 10:44 Dose: 166.667 mls/hr Insulin Aspart (Novolog Vial Sliding Scale -) 1 vial SQ ACHS [facility] PRN Reason: Protocol Last Admin: 01/02/17 11:49 Dose: 2 units Losartan Potassium (Cozaar -) 25 mg PO DAILY [facility] Last Admin: 01/02/17 10:41 Dose: 25 mg Methadone HCl 40 mg/ Methadone (HCl 30 mg) 70 mg PO DAILY@0600 [facility] Last Admin: 01/02/17 08:00 Dose: 70 mg Metoprolol Tartrate (Lopressor -) 50 mg PO TID [facility] Morphine Sulfate (Morphine Injection -) 4 mg IVPUSH Q4H PRN PRN Reason: PAIN Last Admin: 01/01/17 21:50 Dose: 4 mg Nystatin (Nystatin Oral Suspension -) 500,000 units PO Q6HPO [facility] Last Admin: 01/02/17 07:09 Dose: Not Given Rivaroxaban (Xarelto -) 20 mg PO DAILY [facility] Last Admin: 01/02/17 10:41 Dose: 20 mg Silver Sulfadiazine (Silvadene -) 1 applic TP DAILY [facility] Last Admin: 01/02/17 10:45 Dose: 1 applic Sodium Chloride ([place] Nasal [place] -) 2 spray NS BID PRN PRN Reason: NASAL CONGESTION Last Vital Signs Temp Pulse Resp BP Pulse Ox 98.1 F 125 H 25 H 101/73 91 L 01/01/17 06:00 01/01/17 12:00 01/01/17 12:00 01/01/17 12:00 01/01/17 10:00 Intake & Output 12/29/16 12/30/16 12/31/16 01/01/17 23:59 23:59 23:59 23:59 Intake Total 270 6532.5 900 1620 Output Total 2700 1425 600 Balance 270 3832.5 -525 1020 Weight 192 lb 0.8 oz 189 lb 6 oz 200 lb 14.4 oz 204 lb 14.4 oz Gen: mildly tachypneic at rest Heart: tachycardic, irregular Lung: scattered rhonchi Abd: soft, nontender Ext: + edema, good pulses, warm feet CBC, BMP 01/02/17 05:20 01/02/17 05:20 ASSESSMENT AND PLAN: s/p Aorto-bifemoral Bypass 12/30 Paroxysmal Atrial Fibrillation with RVR PAD LE Ulcers/Cellulitis LV Diastolic Dysfunction COPD Smoker - increasing PO meds, Amio - may need Dilt drip if continues to go rapid - continue anticoagulation, monitor H/H - continue antibiotics - start clears - d/c IVF if tolerating clears - pain control - incentive spirometry - inhaled bronchodilators - O2 to keep SpO2 >90% - OOB to chair - continue ICU monitoring CCT 35 min [place] Pulm/Critical Care IRRIGATOR GRAVITY FLOW
[2017-01-02] MEDS: METOPROLOL TARTRATE 50 MG TABLET (FP) PO SCH ×2 (15:07→21:23)
--- NOTE | 2017-01-02 15:56 | OP ---
DATE OF OPERATION: 12/30/16 SURGEONS: Javier Ruiz MD, and Dr. Cunningham PHYSICAL THERAPY TECHNICIAN: AMINA Candelario PROCEDURE: Aortobifemoral bypass. INDICATION: Aortic occlusion. ANESTHESIA: General. 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 Both femoral arteries were patent, but of small caliber. OPERATIVE PROCEDURE: Following routine patient identification, general anesthesia was induced. The abdomen and both groins were prepped with ChloraPrep. Open femoral exposure of the right common femoral artery was performed using cautery for hemostasis. The artery was exposed through a longitudinal incision and encircled at the inguinal ligament with umbilical tape. The deep and superficial femoral branches were individually secured. Small side branches of the artery were ligated and divided with silk ties and clips. Dr. Cunningham exposed the left femoral artery. The abdomen was then opened with a long midline incision using cautery for hemostasis. The midline fascia was incised, peritoneal cavity entered. The Omni retractor was used to provide exposure. The small bowel was eviscerated to the right and the colon was elevated. The retroperitoneum was dissected to expose the infrarenal abdominal aorta. Dissection was carried proximally until the renal vein was reached. The left gonadal vein was ligated with silk ties and divided and the left renal vein was elevated with a retractor. The suprarenal aorta was exposed and carefully dissected. Both renal arteries were identified and mobilized and secured with vessel loops. Small branches of the abdominal aorta were ligated with silk ties and divided. The aorta was then dissected distally to the level of the inferior mesenteric artery. Retroperitoneal tunnels were created between the groin incisions in the abdomen and marked with umbilical tapes. The patient was systemically heparinized. Mannitol and Lasix were also given. The aorta was then occluded in the suprarenal position with a cross-clamp and both renal arteries were occluded with vessel loops. The infrarenal aorta was also occluded with a vascular clamp. A longitudinal aortotomy was made measuring approximately 15 mm. Endarterectomy of old thrombus was performed. The lumen of the aorta was flushed with heparinized saline solution. A 16 x 8-mm Dacron collagen-coated graft was selected for use. The proximal graft was beveled and anastomosed to the side of the aorta with running sutures of 3-0 Prolene. Following completion of the suture line, the proximal clamp was released to flush the graft and the lumen was filled with heparin solution. The cross-clamp was then moved down onto the graft and the renal arteries were opened. Flow in the renal arteries was checked with the Doppler. Suprarenal cross- clamp time was approximately 25 minutes. Bleeding from the suture line was controlled with Surgicel, and Gelfoam, and thrombin. Each limb of the graft was then pulled through it respective tunnel to lie in the groin. Each femoral anastomosis was performed individually. The common femoral artery was occluded proximally with cross- clamp and the distal branches occluded with vessel loops. Long arteriotomy was made in the common femoral artery at the take-off of the deep femoral arteries. The ends of the graft were beveled and anastomosed to the side of the artery with running sutures of 5-0 Prolene. Prior to completion of each suture line, the arteries were allowed to back bleed and flush and the graft limb was flushed. Suture lines were completed and then flow restored to each leg. Bleeding from the suture lines was controlled with Surgicel. Good hemostasis was achieved. The wounds were closed. The small bowel was inspected and the sigmoid colon was inspected and found to be well perfused. The bowel was returned to the peritoneal cavity in an anatomic configuration. The bowel limb wound was closed with a running double suture of number 1 PDS and skin ana. The groin wounds were closed with sutures of 3-0 Vicryl on subcutaneous tissues and ana. The patient was taken to the recovery room in stable condition. Farhana SEBASTIAN/[id number] MTDD
[2017-01-02] MEDS: ACETAMINOPHEN 650 MG/20.3 ML ORAL SOLUTION (CUPS) PO PRN (18:12)
[2017-01-02] MEDS ORDERED: METOPROLOL TARTRATE 5 MG/5 ML VIAL ONE (19:17)
[2017-01-02] MEDS ORDERED: METOPROLOL TARTRATE 5 MG/5 ML VIAL IVPUSH STA (19:33)
[2017-01-02] MEDS: diphenhydrAMINE HCL 25 MG CAPSULE (FP) PO SCH (21:22)
[2017-01-02] MEDS ORDERED: AMIODARONE HCL 150 MG/3 ML VIAL ONE (23:44)
[2017-01-02] MEDS ORDERED: AMIODARONE HCL INJECTION 150 MG in DEXTROSE 5%-WATER - 97 ML IVPB ONE (23:47)
[2017-01-03] MEDS ORDERED: METHADONE HCL 40 MG DISPERSABLE TABLET ONE (05:27)
[2017-01-03] MEDS ORDERED: METHADONE HCL 10 MG TABLET ONE (05:27)
[2017-01-03] MEDS ORDERED: PT OWN MED DRAWER 7, Y5N ONE ×2 (05:28→10:49)
[2017-01-03] MEDS ORDERED: METOPROLOL TARTRATE 25 MG TABLET (FP) ONE (05:49)
[2017-01-03] MEDS: METHADONE 40 MG, METHADONE 30 MG PO SCH (05:51)
[2017-01-03] MEDS: METOPROLOL TARTRATE 50 MG TABLET (FP) PO SCH ×3 (05:52→22:55)
[2017-01-03] MEDS: NYSTATIN 500,000 UNITS/5 ML SUSPENSION PO SCH ×5 (05:53→23:02)
[2017-01-03] MEDS ORDERED: AMIODARONE HCL 200 MG TABLET (FP) PO SCH ×2 (06:00→18:00)
[2017-01-03] MEDS: INSULIN SLIDING SCALE (NOVOLOG) 1 VIAL SQ SCH ×4 (06:07→23:00)
[2017-01-03 06:41] LABS: BASOPHIL 0.3 % (0-2.0); EOSINOPHIL 0.1 % (0-4.5); MCH 29.3 pg (25.7-33.7); MCHC 32.1 g/dl (32.0-35.9); MEAN CELL VOLUME 91.2 fl (80-96); MEAN PLT VOLUME 9.8 fl (7.5-11.1); NEUTROPHILS 85.4 % (42.8-82.8); PLATELET COUNT 175 K/MM3 (134-434); RDW 15.9 % (11.9-15.9); WHITE BLOOD COUNT 27.7 K/mm3 (4.0-10.0)
[2017-01-03 06:44] LABS: CALCIUM 7.8 mg/dL (8.5-10.1)
[2017-01-03 06:45] LABS: COCKROFT - GAULT 84.85; CREATININE 1.2 mg/dL (0.7-1.3)
[2017-01-03] MEDS ORDERED: AMIODARONE HCL 150 MG/3 ML VIAL IVPUSH ONE (07:54)
--- NOTE | 2017-01-03 08:20 | PN ---
Progress Note (short form) - Note Progress Note: Chief Complaint: Events noted notes reviewed, denies any chest pain or dyspnea, remains in atrial fibrillation with recurrent RVR, remains off of IV Cardizem History of Present Illness: Seen and examined in the ICU. Events noted notes reviewed, denies any chest pain or dyspnea, remains in atrial fibrillation with recurrent RVR, remains off of IV Cardizem Plan to give additional Amiodarone IV bolus and drip, in additional plan to D/C Cozaar related to hypotension - Current Medication List Current Medications Acetaminophen (Tylenol Oral Solution -) 650 mg PO Q6H PRN PRN Reason: FEVER OR PAIN Last Admin: 01/02/17 18:12 Dose: 650 mg Albuterol/Ipratropium (Duoneb -) 1 amp NEB Q6H PRN PRN Reason: SHORTNESS OF BREATH Last Admin: 01/01/17 20:25 Dose: 1 amp Amiodarone HCl (Cordarone Injection -) 150 mg IVPUSH ONCE ONE Stop: 01/03/17 07:55 Diphenhydramine HCl (Benadryl -) 25 mg PO HS [facility] Last Admin: 01/02/17 21:22 Dose: 25 mg Furosemide (Lasix -) 40 mg PO DAILY [facility] Last Admin: 01/02/17 10:42 Dose: Not Given Ertapenem 1 gm/ Sodium (Chloride) 50 mls @ 50 mls/hr IVPB DAILY [facility] PRN Reason: Protocol Last Admin: 01/02/17 10:40 Dose: 50 mls/hr Vancomycin HCl 1,250 mg/ (Dextrose) 250 mls @ 166.667 mls/hr IVPB BID [facility] PRN Reason: Protocol Last Admin: 01/02/17 21:23 Dose: 166.667 mls/hr Amiodarone HCl 450 mg/ (Dextrose) 250 mls @ 33.33 mls/hr IVPB TITR [facility]; 1 MG/ MIN PRN Reason: Protocol Insulin Aspart (Novolog Vial Sliding Scale -) 1 vial SQ ACHS [facility] PRN Reason: Protocol Last Admin: 01/03/17 06:07 Dose: Not Given Methadone HCl 40 mg/ Methadone (HCl 30 mg) 70 mg PO DAILY@0600 [facility] Last Admin: 01/03/17 05:51 Dose: 70 mg Metoprolol Tartrate (Lopressor -) 50 mg PO TID [facility] Last Admin: 01/03/17 05:52 Dose: 50 mg Nystatin (Nystatin Oral Suspension -) 500,000 units PO Q6HPO [facility] Last Admin: 01/03/17 05:53 Dose: 500,000 units Pantoprazole Sodium (Protonix -) 40 mg PO DAILY [facility] Rivaroxaban (Xarelto -) 20 mg PO DAILY [facility] Last Admin: 01/02/17 10:41 Dose: 20 mg Silver Sulfadiazine (Silvadene -) 1 applic TP DAILY [facility] Last Admin: 01/02/17 10:45 Dose: 1 applic Sodium Chloride ([place] Nasal [place] -) 2 spray NS BID PRN PRN Reason: NASAL CONGESTION Last Admin: 01/02/17 18:12 Dose: 2 spray - Review of Systems Cardiovascular: As noted above Respiratory: denies: denies: Cough or Sputum Production Gastrointestinal: denies: Nausea, Vomiting, Diarrhea, Constipation or Abdominal Discomfort Musculoskeletal: No Symptoms Reported Endocrine: No Symptoms Reported - Objective Vital Signs: Last Vital Signs Temp Pulse Resp BP Pulse Ox 99.2 F 143 H 13 102/70 95 01/03/17 06:00 01/03/17 06:00 01/03/17 06:00 01/03/17 06:00 01/02/17 21:00 Intake & Output 12/31/16 01/01/17 01/02/17 01/03/17 23:59 23:59 23:59 23:59 Intake Total 900 3189 2190 220 Output Total 1425 1500 760 Balance -525 1689 1430 220 Weight 200 lb 14.4 oz 204 lb 14.4 oz 205 lb 1 oz 204 lb 9.6 oz Neck: Supple Negtaive JVD No Bruit Cardiovascular: S1 S2 Regular Rate Rhythm Respiratory: Clear to A&P Bilaterally Gastrointestinal: Soft Benign Normal Bowel Sounds Ext: Edema Bilaterally Labs: CBC, BMP 01/03/17 05:15 01/03/17 05:15 Hepatic Panel Total Bilirubin 1.4 mg/dL (0.2-1.0) H D 01/02/17 05:20 AST 41 U/L (15-37) H 01/02/17 05:20 ALT 32 U/L (12-78) 01/02/17 05:20 Alkaline Phosphatase 77 U/L (45-117) 01/02/17 05:20 Albumin 2.2 g/dl (3.4-5.0) L 01/02/17 05:20 INR, PTT INR 1.22 (0.82-1.09) H 12/31/16 05:35 Assessment/Plan ASSESSMENT: 1. Paroxysmal atrial fibrillation/atrial flutter recurrent arrhythmia with RVR [id number] score of 2, on NOAC's 2. CAD angina pectoris 3. LV diastolic dysfunction with chronic class 0-I NYHA classification LV failure, compensated 4. PAD with distal aortic occlusion and common and external iliac artery occlusion post 5. Bilateral lower extremity ulcers/cellulitis, resolving 6. Non-compliance history PLAN: 1. Continue Xarelto 2. Continue Lopressor and titrate dose as needed and tolerated and hemodynamics permitting 3. D/C Cozaar as outlined above 4. IV Amiodarone as outlined above 5. Antibiotic as per the primary team Araceli Brownlee M.D.
[2017-01-03] MEDS: AMIODARONE HCL INJECTION 450 MG in DEXTROSE 5%-WATER - 241 ML IVPB SCH (08:25)
--- NOTE | 2017-01-03 09:01 | PN ---
Progress Note (short form) - Note Progress Note: Seen and examined in the ICU Cont to have afib w/ RVR adding amio drip this AM Current Medications Acetaminophen (Tylenol Oral Solution -) 650 mg PO Q6H PRN PRN Reason: FEVER OR PAIN Last Admin: 01/02/17 18:12 Dose: 650 mg Albuterol/Ipratropium (Duoneb -) 1 amp NEB Q6H PRN PRN Reason: SHORTNESS OF BREATH Last Admin: 01/01/17 20:25 Dose: 1 amp Diphenhydramine HCl (Benadryl -) 25 mg PO HS [facility] Last Admin: 01/02/17 21:22 Dose: 25 mg Furosemide (Lasix -) [address] [facility] Last Admin: 01/02/17 10:42 Dose: Not Given Ertapenem 1 gm/ Sodium (Chloride) 50 mls @ 50 mls/hr IVPB DAILY [facility] PRN Reason: Protocol Last Admin: 01/02/17 10:40 Dose: 50 mls/hr Vancomycin HCl 1,250 mg/ (Dextrose) 250 mls @ 166.667 mls/hr IVPB BID [facility] PRN Reason: Protocol Last Admin: 01/02/17 21:23 Dose: 166.667 mls/hr Amiodarone HCl 450 mg/ (Dextrose) 250 mls @ 33.33 mls/hr IVPB TITR [facility]; 1 MG/ MIN PRN Reason: Protocol Last Admin: 01/03/17 08:25 Dose: 33.33 mls/hr Insulin Aspart (Novolog Vial Sliding Scale -) 1 vial SQ ACHS [facility] PRN Reason: Protocol Last Admin: 01/03/17 06:07 Dose: Not Given Methadone HCl 40 mg/ Methadone (HCl 30 mg) 70 mg PO DAILY@0600 [facility] Last Admin: 01/03/17 05:51 Dose: 70 mg Metoprolol Tartrate (Lopressor -) [address] [facility] Last Admin: 01/03/17 05:52 Dose: 50 mg Nystatin (Nystatin Oral Suspension -) 500,[address] [facility] Last Admin: 01/03/17 05:53 Dose: 500,000 units Pantoprazole Sodium (Protonix -) [address] [facility] Rivaroxaban (Xarelto -) [address] [facility] Last Admin: 01/02/17 10:41 Dose: 20 mg Silver Sulfadiazine (Silvadene -) 1 applic TP DAILY [facility] Last Admin: 01/02/17 10:45 Dose: 1 applic Sodium Chloride ([place] Nasal [place] -) 2 spray NS BID PRN PRN Reason: NASAL CONGESTION Last Admin: 01/02/17 18:12 Dose: 2 spray Vital Signs Period Temp Pulse Resp BP Sys/Chatterjee Pulse Ox Last 24 Hr 98.8 F-100 F 99-183 07-16 83-107/52-86 91-95 Intake & Output 12/31/16 01/01/17 01/02/17 01/03/17 23:59 23:59 23:59 23:59 Intake Total 900 3189 2190 220 Output Total 1425 1500 760 Balance -525 1689 1430 220 Weight 91.127 kg 92.941 kg 93.015 kg 92.805 kg Denies: DIAZ/CP/palp/n/v/abd pain Gen: mildly tachypneic at rest Heart: tachycardic, irregular Lung: scattered rhonchi RLL few crackles LLL Abd: soft, nontender Ext: LE + 2 edema, good pulses, warm feet, wounds wrapped and dry CBCD WBC 27.7 K/mm3 (4.0-10.0) H 01/03/17 05:15 RBC 4.08 M/mm3 (4.00-5.60) 01/03/17 05:15 Hgb 11.9 GM/dL (11.7-16.9) 01/03/17 05:15 Hct 37.3 % (35.4-49) 01/03/17 05:15 MCV 91.2 fl (80-96) 01/03/17 05:15 MCHC 32.1 g/dl (32.0-35.9) 01/03/17 05:15 RDW 15.9 % (11.9-15.9) 01/03/17 05:15 Plt Count 175 K/MM3 (134-434) 01/03/17 05:15 MPV 9.8 fl (7.5-11.1) 01/03/17 05:15 CMP Sodium 137 mmol/L (136-145) 01/03/17 05:15 Potassium 4.0 mmol/L (3.5-5.1) 01/03/17 05:15 Chloride 100 mmol/L (98-107) 01/03/17 05:15 Carbon Dioxide 28 mmol/L (21-32) 01/03/17 05:15 Anion Gap 9 (8-16) 01/03/17 05:15 BUN 22 mg/dL (7-18) H D 01/03/17 05:15 Creatinine 1.2 mg/dL (0.7-1.3) 01/03/17 05:15 Creat Clearance w eGFR > 60 (>60) 01/02/17 05:20 Random Glucose 102 mg/dL (74-106) 01/03/17 05:15 Calcium 7.8 mg/dL (8.5-10.1) L 01/03/17 05:15 Total Bilirubin 1.4 mg/dL (0.2-1.0) H D 01/02/17 05:20 AST 41 U/L (15-37) H 01/02/17 05:20 ALT 32 U/L (12-78) 01/02/17 05:20 Alkaline Phosphatase 77 U/L (45-117) 01/02/17 05:20 Total Protein 5.2 g/dl (6.4-8.2) L 01/02/17 05:20 Albumin 2.2 g/dl (3.4-5.0) L 01/02/17 05:20 CARDIAC ENZYMES Creatine Kinase 45 IU/L (39-308) 12/22/16 11:40 Troponin I 0.02 ng/ml (0.00-0.05) 12/22/16 11:40 ASSESSMENT AND PLAN: s/p Aorto-bifemoral Bypass 12/30 Paroxysmal Atrial Fibrillation with RVR PAD LE Ulcers/Cellulitis LV Diastolic Dysfunction COPD Smoker - placed on amio drip per cardiology - continue anticoagulation, monitor H/H - continue antibiotics - start clears - pain control - incentive spirometry - inhaled bronchodilators - O2 to keep SpO2 >90% - OOB to chair - continue ICU monitoring [place] ACNP Pulm/CCM CCT 35 min
[2017-01-03] MEDS: VANCOMYCIN 1,250 MG in DEXTROSE 5%-WATER - 250 ML IVPB SCH ×2 (10:46→21:03)
[2017-01-03] MEDS: PANTOPRAZOLE 40 MG TABLET (FP) PO SCH (10:47)
[2017-01-03] MEDS: RIVAROXABAN 20 MG TABLET PO SCH (10:47)
[2017-01-03] MEDS: FUROSEMIDE 40 MG TABLET (FP) PO SCH (10:47)
[2017-01-03] MEDS: SILVER SULFADIAZINE 1% TOP CREAM 50 GM JAR TP SCH (10:50)
[2017-01-03] MEDS ORDERED: dilTIAZem HCL 125 MG/25 ML - 25 ML VIAL ONE (12:49)
[2017-01-03] MEDS ORDERED: dilTIAZem HCL 50 MG/10 ML - 10 ML VIAL IVPUSH ONE (12:51)
[2017-01-03] MEDS: ERTAPENEM SODIUM 1 GM in SODIUM CHLORIDE 50 ML IVPB SCH (12:56)
--- NOTE | 2017-01-03 14:36 | PN ---
Progress Note (short form) - Note Progress Note: POD 4 Afeb Abd Full, soft. Wound clean +BM Ext Less edema. No redness. Palp DP bilat. Lab: WBC 23K Imp: Stable except for Afib. Elevated WBC, remains on Vancomycin and Invanz Rec: Increase diet and activity as tolerated. Need to reevaluate need for IV antibiotics.
--- NOTE | 2017-01-03 16:21 | PN ---
Physical Exam: SUBJECTIVE: Patient seen and examined. States he feels well, denies any palpitations. Denies chest pain. Denies shortness of breath. OBJECTIVE: Rapid afib with rapid ventricular 170s-180ss yesterday evening Ordered Lopressor 5mg push x 1 Vital Signs Period Temp Pulse Resp BP Sys/Chatterjee Pulse Ox Last 24 Hr 99.2 F-100 F 71-183 11-18 80-107/52-86 93-95 GENERAL: The patient is awake, alert, and fully oriented, in no acute distress. HEAD: Normal with no signs of trauma. NECK: Trachea midline, full range of motion, supple. LUNGS: Breath sounds equal, clear to auscultation bilaterally, no wheezes, no crackles, no accessory muscle use. HEART: atrail fib in 120s on monitor ABDOMEN: s/p aorta fem bypass, abdomen slightly distended, NGT removed, hypoactive bowel sounds, +pain/discomfort of abd., dressing CDI NEUROLOGICAL: Normal speech, gait not observed. PSYCH: Normal mood, normal affect. Laboratory Results - last 24 hr 01/02/17 01/02/17 01/03/17 16:48 22:50 05:15 WBC 27.7 H RBC 4.08 Hgb 11.9 Hct 37.3 MCV 91.2 MCHC 32.1 RDW 15.9 Plt Count 175 MPV 9.8 Neutrophils % 85.4 H Lymphocytes % 4.0 L Monocytes % 10.2 Eosinophils % 0.1 D Basophils % 0.3 Sodium Potassium Chloride Carbon Dioxide Anion Gap BUN Creatinine POC Glucometer 122.93858 147.82037 Random Glucose Calcium Vancomycin Trough 01/03/17 01/03/17 01/03/17 05:15 05:15 06:05 WBC RBC Hgb Hct MCV MCHC RDW Plt Count MPV Neutrophils % Lymphocytes % Monocytes % Eosinophils % Basophils % Sodium 137 Potassium 4.0 Chloride 100 Carbon Dioxide 28 Anion Gap 9 BUN 22 H D Creatinine 1.2 POC Glucometer 145.65307 Random Glucose 102 Calcium 7.8 L Vancomycin Trough 27.760 H* D 01/03/17 11:22 WBC RBC Hgb Hct MCV MCHC RDW Plt Count MPV Neutrophils % Lymphocytes % Monocytes % Eosinophils % Basophils % Sodium Potassium Chloride Carbon Dioxide Anion Gap BUN Creatinine POC Glucometer 120.84296 Random Glucose Calcium Vancomycin Trough Active Medications Generic Name Dose Route Start Last Admin Trade Name Freq PRN Reason Stop Dose Admin Acetaminophen 650 mg 01/02/17 18:04 01/02/17 18:12 Tylenol Oral Solution - PO 650 mg Q6H PRN Administration FEVER OR PAIN Albuterol/Ipratropium 1 amp 12/31/16 13:34 01/01/17 20:25 Duoneb - NEB 1 amp Q6H PRN Administration SHORTNESS OF BREATH Diphenhydramine HCl 25 mg 12/30/16 22:00 01/02/17 21:22 Benadryl - PO 25 mg HS [facility] Administration Furosemide 40 mg 12/31/16 10:00 01/03/17 10:47 Lasix - PO 40 mg DAILY [facility] Administration Ertapenem 1 gm/ Sodium 50 mls @ 50 mls/hr 12/31/16 10:00 01/03/17 12:56 Chloride IVPB 50 mls/hr DAILY [facility] Administration Protocol Vancomycin HCl 1,250 mg/ 250 mls @ 166.667 mls/hr 12/30/16 22:00 01/03/17 10:46 Dextrose IVPB 166.667 mls/hr BID [facility] Administration Protocol Amiodarone HCl 450 mg/ 250 mls @ 33.33 mls/hr 01/03/17 08:00 01/03/17 08:25 Dextrose IVPB 33.33 mls/hr TITR [facility] Administration Protocol 1 MG/MIN Insulin Aspart 1 vial 12/30/16 22:00 01/03/17 11:24 Novolog Vial Sliding Scale - SQ Not Given ACHS [facility] Protocol Methadone HCl 40 mg/ Methadone 70 mg 12/31/16 06:00 01/03/17 05:51 HCl 30 mg PO 70 mg DAILY@0600 [facility] Administration Metoprolol Tartrate 50 mg 01/02/17 14:00 01/03/17 13:52 Lopressor - PO 50 mg TID [facility] Administration Nystatin 500,000 units 12/31/16 00:00 01/03/17 13:52 Nystatin Oral Suspension - PO 500,000 units Q6HPO [facility] Administration Pantoprazole Sodium 40 mg 01/03/17 10:00 01/03/17 10:47 Protonix - PO 40 mg DAILY [facility] Administration Rivaroxaban 20 mg 12/31/16 10:00 01/03/17 10:47 Xarelto - PO 20 mg DAILY [facility] Administration Silver Sulfadiazine 1 applic 12/31/16 10:00 01/03/17 10:50 Silvadene - TP 1 applic DAILY [facility] Administration Sodium Chloride 2 spray 01/01/17 17:07 01/02/17 18:12 [place] Nasal [place] - NS 2 spray BID PRN Administration NASAL CONGESTION ASSESSMENT/PLAN: Patient is a 61 year old male with significant past medical history of of newly diagnosed atrial fibrillation (on Xarelto), CHF, HTN, PAD, and venous ulcerations on bilateral lower extremities, opioid dependence (on methadone). He was admitted on 12/22/2016 with bilateral wound cellulitis with weeping and A fib with RVR. Vascular: PAD with distal aorta and external iliac occlusion Assessment/Plan: s/p aorto-bifemoral bypass POD #4 bilateral foot pulses warm to touch, denies pain or discomfort OOB to chair as tolerated Bilateral venous stasis wounds Assessment/Plan: On going wound care with Silvadene Vascular following Cardiology: Afib with RVR Assessment/Plan: Continue [id number] daily, Lopressor 50mg TID, Cozaar 25 qd, Lasix 40mg Rapid afib with rapid ventricular 170s-180ss yesterday evening, now on Amiodorone drip Patient remains asymptomatic Cardiology following Diastolic dysfunction Assessment/Plan: Lasix 40mg daily, Losartan 25mg daily Endocrine: Diabetes mellitus Assessment/Plan: monitor BGMs, sliding scale [id number] 8.6 Psyche: Polysubstance abuse Assessment/Plan: Methadone 70mg daily Morphine 4mg IV prn for breakthrough pain Monitor pain levels F.E.N. Fluids: advance diet as per surgery Electrolytes: monitor bmp Nutrition: diet adv. as per surgery Prophylaxis: DVT: On Xarelto 20mg daily GI: Protonix 40mg daily Disposition: Requires ICU monitoring. Full Code. Visit type - Emergency Visit Emergency Visit: Yes ED Registration Date: 12/22/16 Care time: The patient presented to the Emergency Department on the above date and was hospitalized for further evaluation of their emergent condition. - New Patient This patient is new to me today: No - Critical Care Critical Care patient: Yes Total Critical Care Time (in minutes): 45 Critical Care Statement: The care of this patient involved high complexity decision making to prevent further life threatening deterioration of the patient 's condition and/or to evalute & treat vital organ system(s) failure or risk of failure. - Discharge Referral Referred to [facility] No
[2017-01-03] MEDS: diphenhydrAMINE HCL 25 MG CAPSULE (FP) PO SCH (23:24)
[2017-01-04] MEDS ORDERED: METHADONE HCL 10 MG TABLET ONE (06:18)
[2017-01-04] MEDS: METHADONE 40 MG, METHADONE 30 MG PO SCH (06:19)
[2017-01-04] MEDS ORDERED: METHADONE HCL 40 MG DISPERSABLE TABLET ONE (06:19)
[2017-01-04 06:55] LABS: MCH 29.8 pg (25.7-33.7); MCHC 32.8 g/dl (32.0-35.9); MEAN CELL VOLUME 90.9 fl (80-96); MEAN PLT VOLUME 9.2 fl (7.5-11.1); PLATELET COUNT 200 K/MM3 (134-434); RDW 15.9 % (11.9-15.9); WHITE BLOOD COUNT 26.6 K/mm3 (4.0-10.0)
[2017-01-04] MEDS: INSULIN SLIDING SCALE (NOVOLOG) 1 VIAL SQ SCH ×5 (06:59→22:21)
[2017-01-04] MEDS: METOPROLOL TARTRATE 50 MG TABLET (FP) PO SCH (06:59)
[2017-01-04] MEDS: NYSTATIN 500,000 UNITS/5 ML SUSPENSION PO SCH ×3 (07:01→17:30)
[2017-01-04 07:09] LABS: CALCIUM 7.9 mg/dL (8.5-10.1); INR 1.59 (0.82-1.09); MAGNESIUM 1.8 mg/dL (1.8-2.4); PHOSPHOROUS 4.2 mg/dL (2.5-4.9); PROTHROMBIN TIME (PATIENT) 17.6 SEC (9.98-11.88)
[2017-01-04 07:11] LABS: CREATININE 1.3 mg/dL (0.7-1.3)
[2017-01-04] MEDS ORDERED: PT OWN MED DRAWER 7, Y5N ONE ×2 (08:27→21:17)
--- NOTE | 2017-01-04 08:28 | PN ---
Progress Note (short form) - Note Progress Note: Vascular Surgery- Dr. Cunningham/Dr. Ruiz Patient seen and examined. Patient states he is doing well but is complaining of multiple episodes of liquid diarrhea for the past 2 days. He states the diarrhea is almost constant. He denies pain in his abdomen or legs. He is tolerating his diet, denies nausea or vomiting. He states he has not been OOB. Denies fever, chills. Last Vital Signs Temp Pulse Resp BP Pulse Ox 98.4 F 69 13 87/61 93 L 01/04/17 05:51 01/04/17 05:51 01/04/17 05:51 01/04/17 05:51 01/03/17 22:47 CBC, BMP 01/04/17 05:30 01/04/17 05:30 Exam: Gen: NAD, pleasant and cooperative Abd: soft, incision clean and dry with ana intact, minimal drainage on dressing, groins soft, c/d/i LE: warm, palpable pulses Problem List - Problems (1) S/P aorto-bifemoral bypass surgery Assessment/Plan: POD# 5 s/p Aorto-bifemoral bypass WBC 26.6 from 27.7 Diarrhea- check cdiff Continue diet as tolerated OOB as tolerated Code(s): Z95.828 - PRESENCE OF OTHER VASCULAR IMPLANTS AND GRAFTS
--- NOTE | 2017-01-04 09:06 | EKG ---
Test Reason : Blood Pressure : / mmHG Vent. Rate : 111 BPM Atrial Rate : 127 BPM P-R Int : 000 ms QRS Dur : 074 ms QT Int : 292 ms P-R-T Axes : 000 063 244 degrees QTc Int : 397 ms ATRIAL FIBRILLATION WITH RAPID VENTRICULAR RESPONSE ABNORMAL ECG WHEN COMPARED WITH ECG OF 02-JAN-2017 23:48, ATRIAL FIBRILLATION HAS REPLACED SINUS RHYTHM VENT. RATE HAS DECREASED BY 65 BPM Confirmed by ALBERTO KAYE MD ([id number]) on 01/04/2017 9:06:42 AM Referred By: Confirmed By:ALBERTO KAYE MD
--- NOTE | 2017-01-04 09:06 | EKG ---
Test Reason : Blood Pressure : / mmHG Vent. Rate : 176 BPM Atrial Rate : 176 BPM P-R Int : 098 ms QRS Dur : 068 ms QT Int : 272 ms P-R-T Axes : 061 062 166 degrees QTc Int : 465 ms ATRIAL FLUTTER WITH 2 TO 1 BLOCK ABNORMAL ECG WHEN COMPARED WITH ECG OF 23-DEC-2016 12:49, PT IS IN ATRIAL FLUTTER ST NOW DEPRESSED IN ANTERIOR LEADS Confirmed by VARGAS RAIN, ALBERTO ([id number]) on 01/04/2017 9:06:36 AM Referred By: Confirmed By:ALBERTO KAYE MD
[2017-01-04] MEDS: ERTAPENEM SODIUM 1 GM in SODIUM CHLORIDE 50 ML IVPB SCH (09:30)
[2017-01-04] MEDS: FUROSEMIDE 40 MG TABLET (FP) PO SCH (09:30)
[2017-01-04] MEDS: VANCOMYCIN 1,250 MG in DEXTROSE 5%-WATER - 250 ML IVPB SCH (09:30)
[2017-01-04] MEDS: AMIODARONE HCL INJECTION 450 MG in DEXTROSE 5%-WATER - 241 ML IVPB SCH (09:31)
[2017-01-04] MEDS: RIVAROXABAN 20 MG TABLET PO SCH (09:31)
[2017-01-04] MEDS: PANTOPRAZOLE 40 MG TABLET (FP) PO SCH (09:31)
[2017-01-04] MEDS: SILVER SULFADIAZINE 1% TOP CREAM 50 GM JAR TP SCH (09:32)
--- NOTE | 2017-01-04 10:34 | PN ---
Progress Note, Physician History of Present Illness: Back in sinus rhythm on amio gtt, reports diarrhea. - Current Medication List Current Medications: Active Medications Acetaminophen (Tylenol Oral Solution -) 650 mg PO Q6H PRN PRN Reason: FEVER OR PAIN Last Admin: 01/02/17 18:12 Dose: 650 mg Albuterol/Ipratropium (Duoneb -) 1 amp NEB Q6H PRN PRN Reason: SHORTNESS OF BREATH Last Admin: 01/01/17 20:25 Dose: 1 amp Diphenhydramine HCl (Benadryl -) 25 mg PO HS [facility] Last Admin: 01/03/17 23:24 Dose: 25 mg Furosemide (Lasix -) 40 mg PO [facility]ILY [facility] Last Admin: 01/04/17 09:30 Dose: 40 mg Ertapenem 1 gm/ Sodium (Chloride) 50 mls @ 50 mls/hr IVPB DAILY [facility] PRN Reason: Protocol Last Admin: 01/04/17 09:30 Dose: 50 mls/hr Vancomycin HCl 1,250 mg/ (Dextrose) 250 mls @ 166.667 mls/hr IVPB BID [facility] PRN Reason: Protocol Last Admin: 01/04/17 09:30 Dose: 166.667 mls/hr Amiodarone HCl 450 mg/ (Dextrose) 250 mls @ 16.66 mls/hr IVPB TITR [facility]; 0.5 MG/ MIN PRN Reason: Protocol Last Admin: 01/04/17 09:31 Dose: 16.66 mls/hr Insulin Aspart (Novolog Vial Sliding Scale -) 1 vial SQ ACHS [facility] PRN Reason: Protocol Last Admin: 01/04/17 10:26 Dose: Not Given Methadone HCl 40 mg/ Methadone (HCl 30 mg) 70 mg PO DAILY@0600 [facility] Last Admin: 01/04/17 06:19 Dose: 70 mg Metoprolol Tartrate (Lopressor -) 50 mg PO TID [facility] Last Admin: 01/04/17 06:59 Dose: Not Given Nystatin (Nystatin Oral Suspension -) 500,000 units PO Q6HPO [facility] Last Admin: 01/04/17 07:01 Dose: 500,000 units Pantoprazole Sodium (Protonix -) 40 mg PO DAILY [facility] Last Admin: 01/04/17 09:31 Dose: 40 mg Rivaroxaban (Xarelto -) 20 mg PO DAILY [facility] Last Admin: 01/04/17 09:31 Dose: 20 mg Silver Sulfadiazine (Silvadene -) 1 applic TP DAILY [facility] Last Admin: 01/04/17 09:32 Dose: 1 applic Sodium Chloride ([place] Nasal [place] -) 2 spray NS BID PRN PRN Reason: NASAL CONGESTION Last Admin: 01/02/17 18:12 Dose: 2 spray - Objective Vital Signs: Vital Signs Temperature 98.4 F 01/04/17 05:51 Pulse Rate 67 01/04/17 10:17 Respiratory Rate 13 01/04/17 05:51 Blood Pressure 87/61 01/04/17 05:51 O2 Sat by Pulse Oximetry (%) 94 L 01/04/17 10:17 Constitutional: Yes: No Distress Neck: Yes: Supple Cardiovascular: Yes: Regular Rate and Rhythm Respiratory: Yes: Regular, Diminished, On BiPap Gastrointestinal: Yes: Normal Bowel Sounds, Soft Edema: Yes Edema: LLE: Trace, RLE: Trace Labs: CBC, BMP 01/04/17 05:30 01/04/17 05:30 INR, PTT INR 1.59 (0.82-1.09) H D 01/04/17 05:30 - ....Imaging Chest X-ray: Report Reviewed (Improvement, left ATX) Problem List - Problems (1) Atrial fibrillation with rapid ventricular response Code(s): I48.91 - UNSPECIFIED ATRIAL FIBRILLATION (2) Cellulitis Code(s): L03.90 - CELLULITIS, UNSPECIFIED Qualifiers: Site of cellulitis of extremity: lower extremity Laterality: unspecified laterality (3) Methadone dependence Code(s): F11.20 - OPIOID DEPENDENCE, UNCOMPLICATED (4) PAD (peripheral artery disease) Code(s): I73.9 - PERIPHERAL VASCULAR DISEASE, UNSPECIFIED (5) Substance abuse Code(s): F19.10 - OTHER PSYCHOACTIVE SUBSTANCE ABUSE, UNCOMPLICATED (6) Diastolic dysfunction Code(s): I51.9 - HEART DISEASE, UNSPECIFIED (7) S/P aorto-bifemoral bypass surgery Code(s): Z95.828 - PRESENCE OF OTHER VASCULAR IMPLANTS AND GRAFTS Assessment/Plan 1. Paroxysmal atrial fibrillation/atrial flutter now in sinus rhythm [id number] score of 2, on NOAC's 2. CAD angina pectoris 3. LV diastolic dysfunction with chronic class 0-I NYHA classification LV failure, compensated 4. PAD with distal aortic occlusion and common and external iliac artery occlusion s/p Aorto-bifemoral Bypass / 5. Bilateral lower extremity ulcers/cellulitis, resolving 6. Non-compliance history 7. Diarrhea r/o c. diff PLAN: 1. Continue Xarelto 20 qPM 2. Decrease Lopressor 25 bid as hemodynamics permitting 3. Continue Lasix 40 qd 4. Complete IV Amiodarone load then switch to oral amio 5. Antibiotic as per the primary team, check c. diff toxin 6. OOB to chair, advance diet as tolerated
--- NOTE | 2017-01-04 12:33 | PN ---
Teaching Attending Note Name of Resident: Katrin Lee ATTENDING PHYSICIAN STATEMENT I saw and evaluated the patient. I reviewed the resident's note and discussed the case with the resident. I agree with the resident's findings and plan as documented. SUBJECTIVE: Patient seen and examined in the ICU. Awake and alert. Denies SOB or CP. On IV Amiodarone for Rapid Afib. Intake & Output 01/01/17 01/02/17 01/03/17 01/04/17 23:59 23:59 23:59 23:59 Intake Total 3189 2190 1453.1 200.4 Output Total 1500 760 Balance 1689 1430 1453.1 200.4 Weight 204 lb 14.4 oz 205 lb 1 oz 204 lb 9.6 oz 203 lb 7.787 oz Last Vital Signs Temp Pulse Resp BP Pulse Ox 98.4 F 67 13 87/61 94 L 01/04/17 05:51 01/04/17 10:17 01/04/17 05:51 01/04/17 05:51 01/04/17 10:17 Active Medications Acetaminophen (Tylenol Oral Solution -) 650 mg PO Q6H PRN PRN Reason: FEVER OR PAIN Last Admin: 01/02/17 18:12 Dose: 650 mg Albuterol/Ipratropium (Duoneb -) 1 amp NEB Q6H PRN PRN Reason: SHORTNESS OF BREATH Last Admin: 01/01/17 20:25 Dose: 1 amp Diphenhydramine HCl (Benadryl -) 25 mg PO HS [facility] Last Admin: 01/03/17 23:24 Dose: 25 mg Furosemide (Lasix -) 40 mg PO DAILY [facility] Last Admin: 01/04/17 09:30 Dose: 40 mg Ertapenem 1 gm/ Sodium (Chloride) 50 mls @ 50 mls/hr IVPB DAILY [facility] PRN Reason: Protocol Last Admin: 01/04/17 09:30 Dose: 50 mls/hr Vancomycin HCl 1,250 mg/ (Dextrose) 250 mls @ 166.667 mls/hr IVPB BID [facility] PRN Reason: Protocol Last Admin: 01/04/17 09:30 Dose: 166.667 mls/hr Amiodarone HCl 450 mg/ (Dextrose) 250 mls @ 16.66 mls/hr IVPB TITR [facility]; 0.5 MG/ MIN PRN Reason: Protocol Last Admin: 01/04/17 09:31 Dose: 16.66 mls/hr Insulin Aspart (Novolog Vial Sliding Scale -) 1 vial SQ ACHS [facility] PRN Reason: Protocol Last Admin: 01/04/17 10:26 Dose: Not Given Methadone HCl 40 mg/ Methadone (HCl 30 mg) 70 mg PO DAILY@0600 [facility] Last Admin: 01/04/17 06:19 Dose: 70 mg Metoprolol Tartrate (Lopressor -) 25 mg PO BID [facility] Nystatin (Nystatin Oral Suspension -) 500,000 units PO Q6HPO [facility] Last Admin: 01/04/17 07:01 Dose: 500,000 units Pantoprazole Sodium (Protonix -) 40 mg PO DAILY [facility] Last Admin: 01/04/17 09:31 Dose: 40 mg Rivaroxaban (Xarelto -) 20 mg PO DAILY [facility] Last Admin: 01/04/17 09:31 Dose: 20 mg Silver Sulfadiazine (Silvadene -) 1 applic TP DAILY [facility] Last Admin: 01/04/17 09:32 Dose: 1 applic Sodium Chloride ([place] Nasal [place] -) 2 spray NS BID PRN PRN Reason: NASAL CONGESTION Last Admin: 01/02/17 18:12 Dose: 2 spray Denies: DIAZ/CP/palp/n/v/abd pain Gen: mildly tachypneic at rest Heart: tachycardic, irregular Lung: scattered rhonchi RLL few crackles LLL Abd: soft, nontender Ext: LE + 2 edema, good pulses, warm feet, wounds wrapped and dry Laboratory Results - last 24 hr 01/03/17 01/03/17 01/03/17 11:22 16:30 21:59 WBC RBC Hgb Hct MCV MCHC RDW Plt Count MPV Neutrophils % Lymphocytes % INR PTT (Actin FS) Sodium Potassium Chloride Carbon Dioxide Anion Gap BUN Creatinine POC Glucometer 120.62204 144.50820 149.56479 Random Glucose Calcium Phosphorus Magnesium 01/04/17 01/04/17 01/04/17 05:30 05:30 05:30 WBC 26.6 H RBC 3.78 L Hgb 11.3 L Hct 34.4 L MCV 90.9 MCHC 32.8 RDW 15.9 Plt Count 200 MPV 9.2 Neutrophils % Y Lymphocytes % Y INR 1.59 H D PTT (Actin FS) 29.0 Sodium 136 Potassium 3.7 Chloride 98 Carbon Dioxide 29 Anion Gap 9 BUN 25 H Creatinine 1.3 POC Glucometer Random Glucose 110 H Calcium 7.9 L Phosphorus 4.2 D Magnesium 1.8 01/04/17 06:47 WBC RBC Hgb Hct MCV MCHC RDW Plt Count MPV Neutrophils % Lymphocytes % INR PTT (Actin FS) Sodium Potassium Chloride Carbon Dioxide Anion Gap BUN Creatinine POC Glucometer 140.95253 Random Glucose Calcium Phosphorus Magnesium ASSESSMENT AND PLAN: S/P Aorto-bifemoral Bypass 12/30 Paroxysmal Atrial Fibrillation with RVR PAD LE Ulcers/Cellulitis LV Diastolic Dysfunction COPD Smoker Patient has clinical history and risk factors for Obstructive Sleep Apnea - Amiodarone drip per cardiology - AC - ABX per ID - PO as tolerated - Pain control - Incentive spirometry - Inhaled bronchodilators - O2 as needed to maintain saturation - OOB to chair - Cardiac Telemetry monitoring once off Amiodarone Dr Smith critical care time spent in reviewing chart, evaluating patient and formulating plan 35 min
[2017-01-04 13:28] LABS: PLATELET ESTIMATE ADEQUATE (NORMAL)
--- NOTE | 2017-01-04 17:56 | PN ---
Physical Exam: SUBJECTIVE: Patient seen and examined. He doesn't have any complaints today. No chest pain, SOB, palpitations. OBJECTIVE: Vital Signs Period Temp Pulse Resp BP Sys/Chatterjee Pulse Ox Last 24 Hr 97.6 F-98.4 F 63-120 12-21 83-112/57-86 93-94 GENERAL: The patient is awake, alert, and fully oriented, in no acute distress. HEAD: Normal with no signs of trauma. EYES: PERRL, extraocular movements intact, sclera anicteric, conjunctiva clear. No ptosis. ENT: Ears normal, nares patent, oropharynx clear without exudates, moist mucous membranes. NECK: Trachea midline, full range of motion, supple. LUNGS: Breath sounds equal, clear to auscultation bilaterally, no wheezes, no crackles, no accessory muscle use. HEART: Regular rate and rhythm, S1, S2 without murmur, rub or gallop. ABDOMEN: Soft, nontender, nondistended, normoactive bowel sounds, no guarding, no rebound, no hepatosplenomegaly, no masses. EXTREMITIES: 2+ pulses, warm, well-perfused, no edema. NEUROLOGICAL: No facial asymmetry. Normal speech, gait not observed. PSYCH: Normal mood, normal affect. SKIN: Warm, dry, normal turgor, no rashes, longitudinal scar in abdomen, no erythema, drainage. Laboratory Results - last 24 hr 01/03/17 01/03/17 01/04/17 16:30 21:59 05:30 WBC 26.6 H RBC 3.78 L Hgb 11.3 L Hct 34.4 L MCV 90.9 MCHC 32.8 RDW 15.9 Plt Count 200 MPV 9.2 Neutrophils % 81.0 Lymphocytes % 5.0 L D Monocytes % 12.0 H Eosinophils % 2.0 D Differential Comment Manual diff done Platelet Estimate Adequate INR PTT (Actin FS) Sodium Potassium Chloride Carbon Dioxide Anion Gap BUN Creatinine POC Glucometer 144.37959 149.93153 Random Glucose Calcium Phosphorus Magnesium 01/04/17 01/04/17 01/04/17 05:30 05:30 06:47 WBC RBC Hgb Hct MCV MCHC RDW Plt Count MPV Neutrophils % Lymphocytes % Monocytes % Eosinophils % Differential Comment Platelet Estimate INR 1.59 H D PTT (Actin FS) 29.0 Sodium 136 Potassium 3.7 Chloride 98 Carbon Dioxide 29 Anion Gap 9 BUN 25 H Creatinine 1.3 POC Glucometer 140.93602 Random Glucose 110 H Calcium 7.9 L Phosphorus 4.2 D Magnesium 1.8 Active Medications Generic Name Dose Route Start Last Admin Trade Name Freq PRN Reason Stop Dose Admin Acetaminophen 650 mg 01/02/17 18:04 01/02/17 18:12 Tylenol Oral Solution - PO 650 mg Q6H PRN Administration FEVER OR PAIN Albuterol/Ipratropium 1 amp 12/31/16 13:34 01/01/17 20:25 Duoneb - NEB 1 amp Q6H PRN Administration SHORTNESS OF BREATH Diphenhydramine HCl 25 mg 12/30/16 22:00 01/03/17 23:24 Benadryl - PO 25 mg HS DOMINIC Administration Furosemide 40 mg 12/31/16 10:00 01/04/17 09:30 Lasix - PO 40 mg DAILY DOMINIC Administration Ertapenem 1 gm/ Sodium 50 mls @ 50 mls/hr 12/31/16 10:00 01/04/17 09:30 Chloride IVPB 50 mls/hr DAILY DOMINIC Administration Protocol Vancomycin HCl 1,250 mg/ 250 mls @ 166.667 mls/hr 12/30/16 22:00 01/04/17 09:30 Dextrose IVPB 166.667 mls/hr BID DOMINIC Administration Protocol Amiodarone HCl 450 mg/ 250 mls @ 16.66 mls/hr 01/03/17 08:00 01/04/17 09:31 Dextrose IVPB 16.66 mls/hr TITR DOMINIC Administration Protocol 0.5 MG/MIN Insulin Aspart 1 vial 12/30/16 22:00 01/04/17 16:38 Novolog Vial Sliding Scale - SQ Not Given ACHS DOMINIC Protocol Methadone HCl 40 mg/ Methadone 70 mg 12/31/16 06:00 01/04/17 06:19 HCl 30 mg PO 70 mg DAILY@0600 DOMIINC Administration Metoprolol Tartrate 25 mg 01/04/17 22:00 Lopressor - PO BID DOMINIC Nystatin 500,000 units 12/31/16 00:00 01/04/17 17:30 Nystatin Oral Suspension - PO 500,000 units Q6HPO DOMINIC Administration Pantoprazole Sodium 40 mg 01/03/17 10:00 01/04/17 09:31 Protonix - PO 40 mg DAILY DOMINIC Administration Rivaroxaban 20 mg 12/31/16 10:00 01/04/17 09:31 Xarelto - PO 20 mg DAILY DOMINIC Administration Silver Sulfadiazine 1 applic 12/31/16 10:00 01/04/17 09:32 Silvadene - TP 1 applic DAILY DOMINIC Administration Sodium Chloride 2 spray 01/01/17 17:07 01/02/17 18:12 [place] Nasal [place] - NS 2 spray BID PRN Administration NASAL CONGESTION Microbiology 12/24/16 15:30 Blood - Peripheral Venous Blood Culture - Final NO GROWTH AFTER 5 DAYS INCUBATION 12/24/16 16:00 Blood - Peripheral Venous Blood Culture - Final NO GROWTH AFTER 5 DAYS INCUBATION 12/22/16 09:00 Blood - Peripheral Venous Blood Culture - Final Brevibacterium Species 12/22/16 09:00 Blood - Peripheral Venous Blood Culture - Final Staphylococcus Aureus Enterococcus Casseliflavus Aerococcus Viridans ASSESSMENT/PLAN: 61 year old male with PMHx of newly diagnosed a.fib (on Xarelto), CHF, HTN, PAD R>L and venous ulcerations to b/l lower ext, on methadone for 5 years for heroin , admitted with bilateral wound cellulitis with weeping and A fib with RVR, to which he self converted. Neuro: Awake, follows commands Insomnia - Benadryl 25mg HS CVS: PAD w/ distal aorta and external iliac occlusion - s/p aorto-bifemoral bypass, 12/30/16 - pulses palpable b/l, b/l foot warm A fib with RVR - started on Amiodarone IV - on Xaralto - on Lopressor 50 bid - cardiology on case Diastolic dysfunction - Lasix 40mg daily - Losartan 25mg daily pulm: RAYSA, we recommend outpatient sleep study ID: B/l lower extremity cellulitis/venous stasis wounds - on Vancomcyin and eratapenem, day 5 - Silvadene and [place] bandage daily - ID on case -leukocytosis Endo: Newly diagnosed DM II - BGM, achs - insulin sliding scale - Metformin on discharge Methadone dependence/substance abuse hx - Methadone 70mg po daily Fluid: RL 75 ml/hr stopped electrolyte WNL nutrition; Regular diet dvt pro: on xarelto gi pro : pepcid dispo: icu, will transfer to Telemetry tomorrow Problem List - Problems (1) Atrial fibrillation with rapid ventricular response Code(s): I48.91 - UNSPECIFIED ATRIAL FIBRILLATION (2) CHF (congestive heart failure) Code(s): I50.9 - HEART FAILURE, UNSPECIFIED Qualifiers: Congestive heart failure type: diastolic Congestive heart failure chronicity: acute on chronic Qualified Code(s): I50.33 - Acute on chronic diastolic (congestive) heart failure (3) Cellulitis Code(s): L03.90 - CELLULITIS, UNSPECIFIED Qualifiers: Site of cellulitis of extremity: lower extremity Laterality: unspecified laterality (4) Methadone dependence Code(s): F11.20 - OPIOID DEPENDENCE, UNCOMPLICATED (5) PAD (peripheral artery disease) Code(s): I73.9 - PERIPHERAL VASCULAR DISEASE, UNSPECIFIED (6) S/P aorto-bifemoral bypass surgery Code(s): Z95.828 - PRESENCE OF OTHER VASCULAR IMPLANTS AND GRAFTS (7) Substance abuse Code(s): F19.10 - OTHER PSYCHOACTIVE SUBSTANCE ABUSE, UNCOMPLICATED Visit type - Emergency Visit Emergency Visit: Yes ED Registration Date: 12/22/16 Care time: The patient presented to the Emergency Department on the above date and was hospitalized for further evaluation of their emergent condition. - New Patient This patient is new to me today: No - Critical Care Critical Care patient: Yes Total Critical Care Time (in minutes): 40 Critical Care Statement: The care of this patient involved high complexity decision making to prevent further life threatening deterioration of the patient 's condition and/or to evalute & treat vital organ system(s) failure or risk of failure.
--- NOTE | 2017-01-04 18:10 | PN ---
Physical Exam: SUBJECTIVE: Patient seen and examined. States he feels better. Denies any abdominal pain or discomfort. OBJECTIVE: Vital Signs Period Temp Pulse Resp BP Sys/Chatterjee Pulse Ox Last 24 Hr 97.6 F-98.4 F 63-120 12-21 83-112/57-86 93-94 GENERAL: The patient is awake, alert, and fully oriented, in no acute distress. HEAD: Normal with no signs of trauma. NECK: Trachea midline, full range of motion, supple. LUNGS: Breath sounds equal, clear to auscultation bilaterally, no wheezes, no crackles, no accessory muscle use. HEART: atrail fib in 120s on monitor ABDOMEN: s/p aorta fem bypass, abdomen slightly distended, NGT removed, hypoactive bowel sounds, +pain/discomfort of abd., dressing CDI NEUROLOGICAL: Normal speech, gait not observed. PSYCH: Normal mood, normal affect. Laboratory Results - last 24 hr 01/03/17 01/04/17 01/04/17 21:59 05:30 05:30 WBC 26.6 H RBC 3.78 L Hgb 11.3 L Hct 34.4 L MCV 90.9 MCHC 32.8 RDW 15.9 Plt Count 200 MPV 9.2 Neutrophils % 81.0 Lymphocytes % 5.0 L D Monocytes % 12.0 H Eosinophils % 2.0 D Differential Comment Manual diff done Platelet Estimate Adequate INR 1.59 H D PTT (Actin FS) 29.0 Sodium Potassium Chloride Carbon Dioxide Anion Gap BUN Creatinine POC Glucometer 149.32998 Random Glucose Calcium Phosphorus Magnesium 01/04/17 01/04/17 05:30 06:47 WBC RBC Hgb Hct MCV MCHC RDW Plt Count MPV Neutrophils % Lymphocytes % Monocytes % Eosinophils % Differential Comment Platelet Estimate INR PTT (Actin FS) Sodium 136 Potassium 3.7 Chloride 98 Carbon Dioxide 29 Anion Gap 9 BUN 25 H Creatinine 1.3 POC Glucometer 140.83686 Random Glucose 110 H Calcium 7.9 L Phosphorus 4.2 D Magnesium 1.8 Active Medications Generic Name Dose Route Start Last Admin Trade Name Freq PRN Reason Stop Dose Admin Acetaminophen 650 mg 01/02/17 18:04 01/02/17 18:12 Tylenol Oral Solution - PO 650 mg Q6H PRN Administration FEVER OR PAIN Albuterol/Ipratropium 1 amp 12/31/16 13:34 01/01/17 20:25 Duoneb - NEB 1 amp Q6H PRN Administration SHORTNESS OF BREATH Diphenhydramine HCl 25 mg 12/30/16 22:00 01/03/17 23:24 Benadryl - PO 25 mg HS DOMINIC Administration Furosemide 40 mg 12/31/16 10:00 01/04/17 09:30 Lasix - PO 40 mg DAILY DOMINIC Administration Ertapenem 1 gm/ Sodium 50 mls @ 50 mls/hr 12/31/16 10:00 01/04/17 09:30 Chloride IVPB 50 mls/hr DAILY DOMINIC Administration Protocol Vancomycin HCl 1,250 mg/ 250 mls @ 166.667 mls/hr 12/30/16 22:00 01/04/17 09:30 Dextrose IVPB 166.667 mls/hr BID DOMINIC Administration Protocol Amiodarone HCl 450 mg/ 250 mls @ 16.66 mls/hr 01/03/17 08:00 01/04/17 09:31 Dextrose IVPB 16.66 mls/hr TITR DOMINIC Administration Protocol 0.5 MG/MIN Insulin Aspart 1 vial 12/30/16 22:00 01/04/17 16:38 Novolog Vial Sliding Scale - SQ Not Given ACHS DOMINIC Protocol Methadone HCl 40 mg/ Methadone 70 mg 12/31/16 06:00 01/04/17 06:19 HCl 30 mg PO 70 mg DAILY@0600 DOMINIC Administration Metoprolol Tartrate 25 mg 01/04/17 22:00 Lopressor - PO BID DOMINIC Nystatin 500,000 units 12/31/16 00:00 01/04/17 17:30 Nystatin Oral Suspension - PO 500,000 units Q6HPO DOMINIC Administration Pantoprazole Sodium 40 mg 01/03/17 10:00 01/04/17 09:31 Protonix - PO 40 mg DAILY DOMINIC Administration Rivaroxaban 20 mg 12/31/16 10:00 01/04/17 09:31 Xarelto - PO 20 mg DAILY DOMINIC Administration Silver Sulfadiazine 1 applic 12/31/16 10:00 01/04/17 09:32 Silvadene - TP 1 applic DAILY DOMINIC Administration Sodium Chloride 2 spray 01/01/17 17:07 01/02/17 18:12 [place] Nasal [place] - NS 2 spray BID PRN Administration NASAL CONGESTION ASSESSMENT/PLAN: Patient is a 61 year old male with significant past medical history of of newly diagnosed atrial fibrillation (on Xarelto), CHF, HTN, PAD, and venous ulcerations on bilateral lower extremities, opioid dependence (on methadone). He was admitted on 12/22/2016 with bilateral wound cellulitis with weeping and A fib with RVR. Vascular: PAD with distal aorta and external iliac occlusion Assessment/Plan: s/p aorto-bifemoral bypass POD #5 bilateral foot pulses warm to touch, denies pain or discomfort OOB to chair as tolerated Bilateral venous stasis wounds Assessment/Plan: On going wound care with Silvadene Vascular following Cardiology: Afib with RVR Assessment/Plan: Continue [id number] daily, Lopressor 50mg TID, Cozaar 25 qd, Lasix 40mg Rapid afib with rapid ventricular rate, back on Amiodorone drip Patient remains asymptomatic Cardiology following Diastolic dysfunction Assessment/Plan: Lasix 40mg daily, Losartan 25mg daily Endocrine: Diabetes mellitus - new diagnosis Assessment/Plan: monitor BGMs, sliding scale [id number] 8.6 Metformin on discharge Psyche: Polysubstance abuse Assessment/Plan: Methadone 70mg daily Morphine 4mg IV prn for breakthrough pain Monitor pain levels F.E.N. Fluids: advance diet as per surgery Electrolytes: monitor bmp Nutrition: diet adv. as per surgery Prophylaxis: DVT: On Xarelto 20mg daily GI: Protonix 40mg daily Disposition: Requires ICU monitoring. Full Code. Visit type - Emergency Visit Emergency Visit: Yes ED Registration Date: 12/22/16 Care time: The patient presented to the Emergency Department on the above date and was hospitalized for further evaluation of their emergent condition. - New Patient This patient is new to me today: No - Critical Care Critical Care patient: Yes Total Critical Care Time (in minutes): 45 Critical Care Statement: The care of this patient involved high complexity decision making to prevent further life threatening deterioration of the patient 's condition and/or to evalute & treat vital organ system(s) failure or risk of failure.
[2017-01-04] MEDS ORDERED: dilTIAZem HCL 50 MG/10 ML - 10 ML VIAL IVPUSH ONE (18:54)
--- NOTE | 2017-01-04 19:18 | PN ---
Progress Note, Physician History of Present Illness: patient contineus to be afib cardizem given patient says he is doing well abd still no t=return of gi function post op day 2 - Current Medication List Current Medications: Active Medications Acetaminophen (Tylenol Oral Solution -) 650 mg PO Q6H PRN PRN Reason: FEVER OR PAIN Last Admin: 01/02/17 18:12 Dose: 650 mg Albuterol/Ipratropium (Duoneb -) 1 amp NEB Q6H PRN PRN Reason: SHORTNESS OF BREATH Last Admin: 01/01/17 20:25 Dose: 1 amp Diphenhydramine HCl (Benadryl -) 25 mg PO HS DOMINIC Last Admin: 01/03/17 23:24 Dose: 25 mg Furosemide (Lasix -) 40 mg PO DAILY [facility] Last Admin: 01/04/17 09:30 Dose: 40 mg Ertapenem 1 gm/ Sodium (Chloride) 50 mls @ 50 mls/hr IVPB DAILY DOMINIC PRN Reason: Protocol Last Admin: 01/04/17 09:30 Dose: 50 mls/hr Vancomycin HCl 1,250 mg/ (Dextrose) 250 mls @ 166.667 mls/hr IVPB BID DOMINIC PRN Reason: Protocol Last Admin: 01/04/17 09:30 Dose: 166.667 mls/hr Amiodarone HCl 450 mg/ (Dextrose) 250 mls @ 16.66 mls/hr IVPB TITR DOMINIC; 0.5 MG/ MIN PRN Reason: Protocol Last Admin: 01/04/17 09:31 Dose: 16.66 mls/hr Insulin Aspart (Novolog Vial Sliding Scale -) 1 vial SQ ACHS DOMINIC PRN Reason: Protocol Last Admin: 01/04/17 16:38 Dose: Not Given Methadone HCl 40 mg/ Methadone (HCl 30 mg) 70 mg PO DAILY@0600 [facility] Last Admin: 01/04/17 06:19 Dose: 70 mg Metoprolol Tartrate (Lopressor -) 25 mg PO BID [facility] Nystatin (Nystatin Oral Suspension -) 500,000 units PO Q6HPO [facility] Last Admin: 01/04/17 17:30 Dose: 500,000 units Pantoprazole Sodium (Protonix -) 40 mg PO DAILY [facility] Last Admin: 01/04/17 09:31 Dose: 40 mg Rivaroxaban (Xarelto -) 20 mg PO DAILY [facility] Last Admin: 01/04/17 09:31 Dose: 20 mg Silver Sulfadiazine (Silvadene -) 1 applic TP DAILY DOMINIC Last Admin: 01/04/17 09:32 Dose: 1 applic Sodium Chloride ([place] Nasal [place] -) 2 spray NS BID PRN PRN Reason: NASAL CONGESTION Last Admin: 01/02/17 18:12 Dose: 2 spray - Objective Vital Signs: Vital Signs Temperature 97.8 F 01/04/17 14:00 Pulse Rate 124 H 01/04/17 18:00 Respiratory Rate 19 01/04/17 18:00 Blood Pressure 95/65 01/04/17 18:00 O2 Sat by Pulse Oximetry (%) 94 L 01/04/17 10:17 Constitutional: Yes: Calm, Mild Distress Cardiovascular: Yes: Pulse Irregular, S1, S2 Respiratory: Yes: Regular, CTA Bilaterally Gastrointestinal: Yes: Tenderness, Other (absent bowel sounds) Musculoskeletal: Yes: Other Extremities: Yes: Other (wounds healing well) Wound/Incision: Yes: Dressing Dry and Intact Neurological: Yes: Alert, Oriented Psychiatric: Yes: Alert, Oriented Labs: CBC, BMP 01/04/17 05:30 01/04/17 05:30 INR, PTT INR 1.59 (0.82-1.09) H D 01/04/17 05:30 Assessment/Plan - Problems (1) Atrial fibrillation with rapid ventricular response Code(s): I48.91 - UNSPECIFIED ATRIAL FIBRILLATION (2) Cellulitis Code(s): L03.90 - CELLULITIS, UNSPECIFIED Qualifiers: Site of cellulitis of extremity: lower extremity Laterality: unspecified laterality (3) Methadone dependence Code(s): F11.20 - OPIOID DEPENDENCE, UNCOMPLICATED (4) PAD (peripheral artery disease) Code(s): I73.9 - PERIPHERAL VASCULAR DISEASE, UNSPECIFIED (5) Substance abuse Code(s): F19.10 - OTHER PSYCHOACTIVE SUBSTANCE ABUSE, UNCOMPLICATED (6) Diastolic dysfunction Code(s): I51.9 - HEART DISEASE, UNSPECIFIED wound infection plan continue current mgmt close monitoring as per cardio as per icu rest ct current mgmt continue cardizem cc time 40 min
--- NOTE | 2017-01-04 19:20 | PN ---
Progress Note, Physician History of Present Illness: stable slightly confused today says he is feeling better still in afib - Current Medication List Current Medications: Active Medications Acetaminophen (Tylenol Oral Solution -) 650 mg PO Q6H PRN PRN Reason: FEVER OR PAIN Last Admin: 01/02/17 18:12 Dose: 650 mg Albuterol/Ipratropium (Duoneb -) 1 amp NEB Q6H PRN PRN Reason: SHORTNESS OF BREATH Last Admin: 01/01/17 20:25 Dose: 1 amp Diphenhydramine HCl (Benadryl -) 25 mg PO HS [facility] Last Admin: 01/03/17 23:24 Dose: 25 mg Furosemide (Lasix -) 40 mg PO DAILY [facility] Last Admin: 01/04/17 09:30 Dose: 40 mg Ertapenem 1 gm/ Sodium (Chloride) 50 mls @ 50 mls/hr IVPB DAILY DOMINIC PRN Reason: Protocol Last Admin: 01/04/17 09:30 Dose: 50 mls/hr Vancomycin HCl 1,250 mg/ (Dextrose) 250 mls @ 166.667 mls/hr IVPB BID DOMINIC PRN Reason: Protocol Last Admin: 01/04/17 09:30 Dose: 166.667 mls/hr Amiodarone HCl 450 mg/ (Dextrose) 250 mls @ 16.66 mls/hr IVPB TITR DOMINIC; 0.5 MG/ MIN PRN Reason: Protocol Last Admin: 01/04/17 09:31 Dose: 16.66 mls/hr Insulin Aspart (Novolog Vial Sliding Scale -) 1 vial SQ ACHS DOMINIC PRN Reason: Protocol Last Admin: 01/04/17 16:38 Dose: Not Given Methadone HCl 40 mg/ Methadone (HCl 30 mg) 70 mg PO DAILY@0600 [facility] Last Admin: 01/04/17 06:19 Dose: 70 mg Metoprolol Tartrate (Lopressor -) 25 mg PO BID [facility] Nystatin (Nystatin Oral Suspension -) 500,000 units PO Q6HPO [facility] Last Admin: 01/04/17 17:30 Dose: 500,000 units Pantoprazole Sodium (Protonix -) 40 mg PO DAILY [facility] Last Admin: 01/04/17 09:31 Dose: 40 mg Rivaroxaban (Xarelto -) 20 mg PO DAILY [facility] Last Admin: 01/04/17 09:31 Dose: 20 mg Silver Sulfadiazine (Silvadene -) 1 applic TP DAILY DOMINIC Last Admin: 01/04/17 09:32 Dose: 1 applic Sodium Chloride ([place] Nasal [place] -) 2 spray NS BID PRN PRN Reason: NASAL CONGESTION Last Admin: 01/02/17 18:12 Dose: 2 spray - Objective Vital Signs: Vital Signs Temperature 97.8 F 01/04/17 14:00 Pulse Rate 124 H 01/04/17 18:00 Respiratory Rate 19 01/04/17 18:00 Blood Pressure 95/65 01/04/17 18:00 O2 Sat by Pulse Oximetry (%) 94 L 01/04/17 10:17 Constitutional: Yes: Calm Cardiovascular: Yes: Pulse Irregular, S1, S2 Respiratory: Yes: Regular, CTA Bilaterally Gastrointestinal: Yes: Tenderness, Other (hypoactive bowel sounds) Musculoskeletal: Yes: Other Extremities: Yes: Other Wound/Incision: Yes: Other Psychiatric: Yes: Alert, Oriented Labs: CBC, BMP 01/04/17 05:30 01/04/17 05:30 INR, PTT INR 1.59 (0.82-1.09) H D 01/04/17 05:30 Assessment/Plan - Problems (1) Atrial fibrillation with rapid ventricular response Code(s): I48.91 - UNSPECIFIED ATRIAL FIBRILLATION (2) Cellulitis Code(s): L03.90 - CELLULITIS, UNSPECIFIED Qualifiers: Site of cellulitis of extremity: lower extremity Laterality: unspecified laterality (3) Methadone dependence Code(s): F11.20 - OPIOID DEPENDENCE, UNCOMPLICATED (4) PAD (peripheral artery disease) Code(s): I73.9 - PERIPHERAL VASCULAR DISEASE, UNSPECIFIED (5) Substance abuse Code(s): F19.10 - OTHER PSYCHOACTIVE SUBSTANCE ABUSE, UNCOMPLICATED (6) Diastolic dysfunction Code(s): I51.9 - HEART DISEASE, UNSPECIFIED wound infection plan continue current mgmt close monitoring as per cardio as per icu rest ct current mgmt continue cardizem cc time 40 min
[2017-01-04] MEDS ORDERED: METOPROLOL TARTRATE 25 MG TABLET (FP) ONE (19:21)
--- NOTE | 2017-01-04 19:27 | PN ---
Progress Note, Physician History of Present Illness: stable much better patient having dirrhoea also patient is incontinent which is leading to soiling of the wound - Current Medication List Current Medications: Active Medications Acetaminophen (Tylenol Oral Solution -) 650 mg PO Q6H PRN PRN Reason: FEVER OR PAIN Last Admin: 01/02/17 18:12 Dose: 650 mg Albuterol/Ipratropium (Duoneb -) 1 amp NEB Q6H PRN PRN Reason: SHORTNESS OF BREATH Last Admin: 01/01/17 20:25 Dose: 1 amp Diphenhydramine HCl (Benadryl -) 25 mg PO HS [facility] Last Admin: 01/03/17 23:24 Dose: 25 mg Furosemide (Lasix -) 40 mg PO DAILY [facility] Last Admin: 01/04/17 09:30 Dose: 40 mg Ertapenem 1 gm/ Sodium (Chloride) 50 mls @ 50 mls/hr IVPB DAILY DOMINIC PRN Reason: Protocol Last Admin: 01/04/17 09:30 Dose: 50 mls/hr Vancomycin HCl 1,250 mg/ (Dextrose) 250 mls @ 166.667 mls/hr IVPB BID DOMINIC PRN Reason: Protocol Last Admin: 01/04/17 09:30 Dose: 166.667 mls/hr Amiodarone HCl 450 mg/ (Dextrose) 250 mls @ 16.66 mls/hr IVPB TITR DOMINIC; 0.5 MG/ MIN PRN Reason: Protocol Last Admin: 01/04/17 09:31 Dose: 16.66 mls/hr Insulin Aspart (Novolog Vial Sliding Scale -) 1 vial SQ ACHS DOMINIC PRN Reason: Protocol Last Admin: 01/04/17 16:38 Dose: Not Given Methadone HCl 40 mg/ Methadone (HCl 30 mg) 70 mg PO DAILY@0600 [facility] Last Admin: 01/04/17 06:19 Dose: 70 mg Metoprolol Tartrate (Lopressor -) 25 mg PO BID [facility] Nystatin (Nystatin Oral Suspension -) 500,000 units PO Q6HPO [facility] Last Admin: 01/04/17 17:30 Dose: 500,000 units Pantoprazole Sodium (Protonix -) 40 mg PO DAILY [facility] Last Admin: 01/04/17 09:31 Dose: 40 mg Rivaroxaban (Xarelto -) 20 mg PO DAILY [facility] Last Admin: 01/04/17 09:31 Dose: 20 mg [place] Sulfadiazine (Silvadene -) 1 applic TP DAILY [facility]INIC Last Admin: 01/04/17 09:32 Dose: 1 applic Sodium Chloride ([place] Nasal [place] -) 2 spray NS BID PRN PRN Reason: NASAL CONGESTION Last Admin: 01/02/17 18:12 Dose: 2 spray - Objective Vital Signs: Vital Signs Temperature 97.8 F 01/04/17 14:00 Pulse Rate 124 H 01/04/17 18:00 Respiratory Rate 19 01/04/17 18:00 Blood Pressure 95/65 01/04/17 18:00 O2 Sat by Pulse Oximetry (%) 94 L 01/04/17 10:17 Constitutional: Yes: No Distress, Calm Cardiovascular: Yes: Pulse Irregular Respiratory: Yes: Regular, CTA Bilaterally Gastrointestinal: Yes: Soft, Hypoactive Bowel Sounds Musculoskeletal: Yes: Other Extremities: Yes: Other Integumentary: Yes: Other (wounds healing well) Wound/Incision: Yes: Other (abd scar looks good leg wounds stable groin dsg dry intact) Neurological: Yes: Alert, Oriented Psychiatric: Yes: Alert Labs: CBC, BMP 01/04/17 05:30 01/04/17 05:30 INR, PTT INR 1.59 (0.82-1.09) H D 01/04/17 05:30 Assessment/Plan - Problems (1) Atrial fibrillation with rapid ventricular response Code(s): I48.91 - UNSPECIFIED ATRIAL FIBRILLATION (2) Cellulitis Code(s): L03.90 - CELLULITIS, UNSPECIFIED Qualifiers: Site of cellulitis of extremity: lower extremity Laterality: unspecified laterality (3) Methadone dependence Code(s): F11.20 - OPIOID DEPENDENCE, UNCOMPLICATED (4) PAD (peripheral artery disease) Code(s): I73.9 - PERIPHERAL VASCULAR DISEASE, UNSPECIFIED (5) Substance abuse Code(s): F19.10 - OTHER PSYCHOACTIVE SUBSTANCE ABUSE, UNCOMPLICATED (6) Diastolic dysfunction Code(s): I51.9 - HEART DISEASE, UNSPECIFIED wound infection plan patients vanco trough was high vanco stopped by me i have also stopped ertapenam close monitoring of numbers will recheck vanco level again will have to make a decision on further management cc time 40 min
[2017-01-04] MEDS ORDERED: AMIODARONE HCL 150 MG/3 ML VIAL ONE (21:06)
[2017-01-04] MEDS ORDERED: AMIODARONE HCL INJECTION 150 MG in DEXTROSE 5%-WATER - 97 ML IVPB ONE (21:06)
[2017-01-04] MEDS: diphenhydrAMINE HCL 25 MG CAPSULE (FP) PO SCH (21:19)
[2017-01-04] MEDS ORDERED: METOPROLOL TARTRATE 25 MG TABLET (FP) PO SCH (22:00)
[2017-01-05] MEDS: NYSTATIN 500,000 UNITS/5 ML SUSPENSION PO SCH ×3 (00:04→17:00)
[2017-01-05 06:15] LABS: MCH 29.5 pg (25.7-33.7); MCHC 32.5 g/dl (32.0-35.9); MEAN CELL VOLUME 90.5 fl (80-96); MEAN PLT VOLUME 9.7 fl (7.5-11.1); PLATELET COUNT 228 K/MM3 (134-434); RDW 15.8 % (11.9-15.9); WHITE BLOOD COUNT 24.2 K/mm3 (4.0-10.0)
[2017-01-05 06:33] LABS: ALBUMIN 1.8 g/dl (3.4-5.0); BILIRUBIN,TOTAL 0.5 mg/dL (0.2-1.0); CREATININE 1.3 mg/dL (0.7-1.3); TOT PROT 4.6 g/dl (6.4-8.2)
--- NOTE | 2017-01-05 07:25 | PN ---
Progress Note (short form) - Note Progress Note: Chief Complaint: Events noted notes reviewed, denies any chest pain or dyspnea, remains in atrial fibrillation with periods of RVR, remains off of IV Cardizem History of Present Illness: Seen and examined in the ICU. Events noted notes reviewed, denies any chest pain or dyspnea, remains in atrial fibrillation with periods of RVR, remains off of IV Cardizem Remains on Amiodarone IV, Lopressor dosage decreased related to hypotension - Current Medication List Current Medications Acetaminophen (Tylenol Oral Solution -) 650 mg PO Q6H PRN PRN Reason: FEVER OR PAIN Last Admin: 01/02/17 18:12 Dose: 650 mg Albuterol/Ipratropium (Duoneb -) 1 amp NEB Q6H PRN PRN Reason: SHORTNESS OF BREATH Last Admin: 01/01/17 20:25 Dose: 1 amp Diphenhydramine HCl (Benadryl -) 25 mg PO HS [facility] Last Admin: 01/04/17 21:19 Dose: 25 mg Furosemide (Lasix -) 40 mg PO DAILY [facility] Last Admin: 01/04/17 09:30 Dose: 40 mg Amiodarone HCl 450 mg/ (Dextrose) 250 mls @ 16.66 mls/hr IVPB TITR DOMINIC; 0.5 MG/ MIN PRN Reason: Protocol Last Admin: 01/04/17 09:31 Dose: 16.66 mls/hr Insulin Aspart (Novolog Vial Sliding Scale -) 1 vial SQ ACHS [facility] PRN Reason: Protocol Last Admin: 01/04/17 22:21 Dose: 2 units Methadone HCl 40 mg/ Methadone (HCl 30 mg) 70 mg PO DAILY@0600 [facility] Last Admin: 01/04/17 06:19 Dose: 70 mg Metoprolol Tartrate (Lopressor -) 25 mg PO BID [facility] Last Admin: 01/04/17 21:20 Dose: 25 mg Nystatin (Nystatin Oral Suspension -) 500,000 units PO Q6HPO [facility] Last Admin: 01/05/17 00:04 Dose: 500,000 units Pantoprazole Sodium (Protonix -) 40 mg PO DAILY [facility] Last Admin: 01/04/17 09:31 Dose: 40 mg Rivaroxaban (Xarelto -) 20 mg PO DAILY [facility] Last Admin: 01/04/17 09:31 Dose: 20 mg Silver Sulfadiazine (Silvadene -) 1 applic TP DAILY [facility] Last Admin: 01/04/17 09:32 Dose: 1 applic Sodium Chloride ([place] Nasal [place] -) 2 spray NS BID PRN PRN Reason: NASAL CONGESTION Last Admin: 01/02/17 18:12 Dose: 2 spray - Review of Systems Cardiovascular: As noted above Respiratory: denies: denies: Cough or Sputum Production Gastrointestinal: denies: Nausea, Vomiting, Diarrhea, Constipation or Abdominal Discomfort Musculoskeletal: No Symptoms Reported Endocrine: No Symptoms Reported - Objective Vital Signs: Last Vital Signs Temp Pulse Resp BP Pulse Ox 97.8 F 111 H 19 90/75 94 L 01/05/17 06:00 01/05/17 06:00 01/05/17 06:00 01/05/17 06:00 01/04/17 21:00 Intake & Output 01/02/17 01/03/17 01/04/17 01/05/17 23:59 23:59 23:59 23:59 Intake Total 2190 1453.1 1889.6 390 Output Total 649 819 7018 Balance 1430 1453.1 1789.6 -1310 Weight 205 lb 1 oz 204 lb 9.6 oz 203 lb 7.787 oz 197 lb 3.2 oz Neck: Supple Negative JVD No Bruit Cardiovascular: S1 S2 Regular Rate Rhythm Respiratory: Clear to A&P Bilaterally Gastrointestinal: Soft Benign Normal Bowel Sounds Ext: Edema Bilaterally Labs: CBC, BMP 01/05/17 05:30 01/05/17 05:30 INR, PTT INR 1.59 (0.82-1.09) H D 01/04/17 05:30 Assessment/Plan ASSESSMENT: 1. Paroxysmal atrial fibrillation/atrial flutter recurrent arrhythmia with RVR [id number] score of 2, on NOAC's 2. CAD angina pectoris 3. LV diastolic dysfunction with chronic class 0-I NYHA classification LV failure, compensated 4. PAD with distal aortic occlusion and common and external iliac artery occlusion post 5. Bilateral lower extremity ulcers/cellulitis, resolving 6. Non-compliance history PLAN: 1. Continue Xarelto 2. Continue Lopressor and re-titrate dose as needed and tolerated and hemodynamics permitting 3. Add Digoxin 4. IV Amiodarone switch to PO Araceli Brownlee M.D.
[2017-01-05] MEDS ORDERED: DIGOXIN 0.5 MG/2 ML AMPUL IVPUSH SCH (07:30)
[2017-01-05] MEDS ORDERED: METHADONE HCL 10 MG TABLET ONE (07:37)
[2017-01-05] MEDS ORDERED: METHADONE HCL 40 MG DISPERSABLE TABLET ONE (07:38)
[2017-01-05] MEDS: METHADONE 40 MG, METHADONE 30 MG PO SCH (07:47)
--- NOTE | 2017-01-05 08:09 | PN ---
Progress Note (short form) - Note Progress Note: Vascular Surgery- Dr. Cunningham Patient seen and examined. Patient states he is doing well, denies pain. Patient states diarrhea is improving. He is urinating without issue. He is tolerating his diet. He states he has not been OOB. Denies fever, chills, nausea, vomiting. Last Vital Signs Temp Pulse Resp BP Pulse Ox 97.8 F 111 H 19 90/75 94 L 01/05/17 06:00 01/05/17 06:00 01/05/17 06:00 01/05/17 06:00 01/04/17 21:00 CBC, BMP 01/05/17 05:30 01/05/17 05:30 Exam: Gen: NAD Abd: abdominal incision clean, dry, ana intact, groins soft, c/d/i LE: warm, well-perfused Problem List - Problems (1) S/P aorto-bifemoral bypass surgery Assessment/Plan: POD# 6 s/p Aorto-bifemoral bypass WBC improving f/u stool cx/cdiff Continue diet as tolerated OOB as tolerated Code(s): Z95.828 - PRESENCE OF OTHER VASCULAR IMPLANTS AND GRAFTS
[2017-01-05] MEDS: DIGOXIN 0.5 MG/2 ML AMPUL IVPUSH SCH ×2 (08:17→14:50)
[2017-01-05] MEDS: INSULIN SLIDING SCALE (NOVOLOG) 1 VIAL SQ SCH ×4 (08:30→21:07)
[2017-01-05] MEDS: RIVAROXABAN 20 MG TABLET PO SCH (09:01)
[2017-01-05] MEDS: PANTOPRAZOLE 40 MG TABLET (FP) PO SCH (09:02)
[2017-01-05] MEDS: FUROSEMIDE 40 MG TABLET (FP) PO SCH (09:02)
[2017-01-05] MEDS: SILVER SULFADIAZINE 1% TOP CREAM 50 GM JAR TP SCH (09:03)
[2017-01-05] MEDS ORDERED: POTASSIUM CHLORIDE TABS 20 MEQ TABLET.ER (FP) PO ONE ×3 (09:30→18:00)
[2017-01-05 09:31] LABS: PLATELET ESTIMATE ADEQUATE (NORMAL)
[2017-01-05] MEDS: AMIODARONE HCL 200 MG TABLET (FP) PO SCH ×2 (10:15→21:05)
[2017-01-05] MEDS ORDERED: POTASSIUM CHLORIDE 20 MEQ PREMIX IVPB 100 ML IVPB ONE (11:15)
[2017-01-05 12:26] LABS: URINE APPEARANCE CLEAR; URINE BILIRUBIN NEGATIVE (NEGATIVE); URINE COLOR YELLOW; URINE GLUCOSE (UA) NEGATIVE (NEGATIVE); URINE KETONE NEGATIVE (NEGATIVE); URINE LEUK ESTERASE NEGATIVE (NEGATIVE); URINE NITRITE NEGATIVE (NEGATIVE); URINE PROTEIN NEGATIVE (NEGATIVE); URINE UROBILINOGEN NEGATIVE E.U./dl (0.2-1.0)
[2017-01-05 12:29] LABS: URINE BLOOD 3+ (NEGATIVE)
[2017-01-05 12:39] LABS: URINE HYALINE CAST 5 /lpf; URINE MUCUS RARE; URINE WBC 10 /hpf (3-5)
[2017-01-05 12:44] LABS: URINE RBC 66 /hpf (0-3)
--- NOTE | 2017-01-05 13:42 | PN ---
Progress Note, Physician History of Present Illness: stable much better no new issues still in afib no complaints - Current Medication List Current Medications: Active Medications Acetaminophen (Tylenol Oral Solution -) 650 mg PO Q6H PRN PRN Reason: FEVER OR PAIN Last Admin: 01/02/17 18:12 Dose: 650 mg Albuterol/Ipratropium (Duoneb -) 1 amp NEB Q6H PRN PRN Reason: SHORTNESS OF BREATH Last Admin: 01/01/17 20:25 Dose: 1 amp Amiodarone HCl (Cordarone -) 400 mg PO BID [facility] Last Admin: 01/05/17 10:15 Dose: 400 mg Digoxin (Lanoxin Injection -) 0.25 mg IVPUSH Q6H-IV [facility] Stop: 01/05/17 15:01 Last Admin: 01/05/17 08:17 Dose: 0.25 mg Diphenhydramine HCl (Benadryl -) 25 mg PO HS [facility] Last Admin: 01/04/17 21:19 Dose: 25 mg Furosemide (Lasix -) 40 mg PO DAILY [facility] Last Admin: 01/05/17 09:02 Dose: 40 mg Insulin Aspart (Novolog Vial Sliding Scale -) 1 vial SQ ACHS [facility] PRN Reason: Protocol Last Admin: 01/05/17 08:30 Dose: Not Given Methadone HCl 40 mg/ Methadone (HCl 30 mg) 70 mg PO DAILY@0600 [facility] Last Admin: 01/05/17 07:47 Dose: 70 mg Metoprolol Tartrate (Lopressor -) 25 mg PO TID [facility] Nystatin (Nystatin Oral Suspension -) 500,000 units PO Q6HPO [facility] Last Admin: 01/05/17 12:00 Dose: 500,000 units Pantoprazole Sodium (Protonix -) 40 mg PO DAILY [facility] Last Admin: 01/05/17 09:02 Dose: 40 mg Rivaroxaban (Xarelto -) 20 mg PO DAILY [facility] Last Admin: 01/05/17 09:01 Dose: 20 mg Silver Sulfadiazine (Silvadene -) 1 applic TP DAILY [facility] Last Admin: 01/05/17 09:03 Dose: 1 applic Sodium Chloride ([place] Nasal [place] -) 2 spray NS BID PRN PRN Reason: NASAL CONGESTION Last Admin: 01/02/17 18:12 Dose: 2 spray - Objective Vital Signs: Vital Signs Temperature 97.7 F 01/05/17 10:00 Pulse Rate 125 H 01/05/17 10:37 Respiratory Rate 18 01/05/17 10:00 Blood Pressure 94/72 01/05/17 10:00 O2 Sat by Pulse Oximetry (%) 93 L 01/05/17 10:37 Constitutional: Yes: Calm Neck: Yes: Supple Cardiovascular: Yes: Tachycardia, Pulse Irregular Respiratory: Yes: Regular, CTA Bilaterally Gastrointestinal: Yes: Soft, Hypoactive Bowel Sounds. No: Tenderness Musculoskeletal: Yes: Other Extremities: Yes: Other Integumentary: Yes: Other Wound/Incision: Yes: Other (healing well) Neurological: Yes: Alert, Oriented Psychiatric: Yes: Alert, Oriented Labs: CBC, BMP 01/05/17 05:30 01/05/17 05:30 INR, PTT INR 1.59 (0.82-1.09) H D 01/04/17 05:30 Assessment/Plan - Problems (1) Atrial fibrillation with rapid ventricular response Code(s): I48.91 - UNSPECIFIED ATRIAL FIBRILLATION (2) Cellulitis Code(s): L03.90 - CELLULITIS, UNSPECIFIED Qualifiers: Site of cellulitis of extremity: lower extremity Laterality: unspecified laterality (3) Methadone dependence Code(s): F11.20 - OPIOID DEPENDENCE, UNCOMPLICATED (4) PAD (peripheral artery disease) Code(s): I73.9 - PERIPHERAL VASCULAR DISEASE, UNSPECIFIED (5) Substance abuse Code(s): F19.10 - OTHER PSYCHOACTIVE SUBSTANCE ABUSE, UNCOMPLICATED (6) Diastolic dysfunction Code(s): I51.9 - HEART DISEASE, UNSPECIFIED wound infection plan will check vanco level then decide about vanco dose rest continue current mgmt wbc still on the higher side continue to monitor very closely cc time 40 min
--- NOTE | 2017-01-05 14:14 | PN ---
Physical Exam: SUBJECTIVE: Patient seen and examined. He is sitting in the chair, states he felt slightly dizzy when getting OOB to chair, now is better. OBJECTIVE: Vital Signs Period Temp Pulse Resp BP Sys/Chatterjee Pulse Ox Last 24 Hr 97.7 F-98 F 104-130 16-27 79-102/60-88 93-94 GENERAL: The patient is awake, alert, and fully oriented, in no acute distress. HEAD: Normal with no signs of trauma. NECK: Trachea midline, full range of motion, supple. LUNGS: Breath sounds equal, clear to auscultation bilaterally, no wheezes, no crackles, no accessory muscle use. HEART: atrail fib in 120s on monitor ABDOMEN: s/p aorta fem bypass, abdomen slightly distended, hypoactive bowel sounds, +pain/discomfort of abd., dressing CDI NEUROLOGICAL: Normal speech, gait not observed. PSYCH: Normal mood, normal affect. Laboratory Results - last 24 hr 01/04/17 01/05/17 01/05/17 21:30 05:30 05:30 WBC 24.2 H RBC 3.94 L Hgb 11.6 L Hct 35.7 MCV 90.5 MCHC 32.5 RDW 15.8 Plt Count 228 MPV 9.7 Neutrophils % 83.0 H Lymphocytes % 4.0 L Monocytes % 13.0 H Differential Comment Manual diff done Platelet Estimate Adequate Sodium 138 Potassium 3.2 L Chloride 98 Carbon Dioxide 28 Anion Gap 12 BUN 24 H Creatinine 1.3 Creat Clearance w eGFR 56.12 Random Glucose 122 H Calcium 8.0 L Total Bilirubin 0.5 D AST 24 D ALT 25 D Alkaline Phosphatase 129 H D Total Protein 4.6 L Albumin 1.8 L Urine Color Urine Appearance Urine pH Urine Protein Urine Glucose (UA) Urine Ketones Urine Blood Urine Nitrite Urine Bilirubin Urine Urobilinogen Ur Leukocyte Esterase Urine RBC Urine WBC Hyaline Casts Urine Mucus Vancomycin Trough 21.382 H* D 01/05/17 06:00 WBC RBC Hgb Hct MCV MCHC RDW Plt Count MPV Neutrophils % Lymphocytes % Monocytes % Differential Comment Platelet Estimate Sodium Potassium Chloride Carbon Dioxide Anion Gap BUN Creatinine Creat Clearance w eGFR Random Glucose Calcium Total Bilirubin AST ALT Alkaline Phosphatase Total Protein Albumin Urine Color Yellow Urine Appearance Clear Urine pH 5.0 Urine Protein Negative Urine Glucose (UA) Negative Urine Ketones Negative Urine Blood 3+ H Urine Nitrite Negative Urine Bilirubin Negative Urine Urobilinogen Negative Ur Leukocyte Esterase Negative Urine RBC 66 Urine WBC 10 Hyaline Casts 5 Urine Mucus Rare Vancomycin Trough Active Medications Generic Name Dose Route Start Last Admin Trade Name Janie PRN Reason Stop Dose Admin Acetaminophen 650 mg 01/02/17 18:04 01/02/17 18:12 Tylenol Oral Solution - PO 650 mg Q6H PRN Administration FEVER OR PAIN Albuterol/Ipratropium 1 amp 12/31/16 13:34 01/01/17 20:25 Duoneb - NEB 1 amp Q6H PRN Administration SHORTNESS OF BREATH Amiodarone HCl 400 mg 01/05/17 10:00 01/05/17 10:15 Cordarone - PO 400 mg BID [facility] Administration Digoxin 0.25 mg 01/05/17 07:33 01/05/17 08:17 Lanoxin Injection - IVPUSH 01/05/17 15:01 0.25 mg Q6H-IV [facility] Administration Diphenhydramine HCl 25 mg 12/30/16 22:00 01/04/17 21:19 Benadryl - PO 25 mg HS [facility] Administration Furosemide 40 mg 12/31/16 10:00 01/05/17 09:02 Lasix - PO 40 mg DAILY [facility] Administration Insulin Aspart 1 vial 12/30/16 22:00 01/05/17 08:30 Novolog Vial Sliding Scale - SQ Not Given ACHS [facility] Protocol Methadone HCl 40 mg/ Methadone 70 mg 12/31/16 06:00 01/05/17 07:47 HCl 30 mg PO 70 mg DAILY@0600 [facility] Administration Metoprolol Tartrate 25 mg 01/05/17 14:00 Lopressor - PO TID [facility] Nystatin 500,000 units 12/31/16 00:00 01/05/17 12:00 Nystatin Oral Suspension - PO 500,000 units Q6HPO [facility] Administration Pantoprazole Sodium 40 mg 01/03/17 10:00 01/05/17 09:02 Protonix - PO 40 mg DAILY [facility] Administration Rivaroxaban 20 mg 12/31/16 10:00 01/05/17 09:01 Xarelto - PO 20 mg DAILY [facility] Administration Silver Sulfadiazine 1 applic 12/31/16 10:00 01/05/17 09:03 Silvadene - TP 1 applic DAILY [facility] Administration Sodium Chloride 2 spray 01/01/17 17:07 01/02/17 18:12 [place] Nasal [place] - NS 2 spray BID PRN Administration NASAL CONGESTION ASSESSMENT/PLAN: Patient is a 61 year old male with significant past medical history of of newly diagnosed atrial fibrillation (on Xarelto), CHF, HTN, PAD, and venous ulcerations on bilateral lower extremities, opioid dependence (on methadone). He was admitted on 12/22/2016 with bilateral wound cellulitis with weeping and A fib with RVR. Vascular: PAD with distal aorta and external iliac occlusion Assessment/Plan: s/p aorto-bifemoral bypass POD #6 bilateral foot pulses warm to touch, denies pain or discomfort No abdominal pain, dressing c/d/i OOB to chair as tolerated Bilateral venous stasis wounds Assessment/Plan: On going wound care with Silvadene Vascular following Cardiology: Afib with RVR Assessment/Plan: Continue [id number] daily, Lopressor 50mg TID, Cozaar 25 qd, Lasix 40mg Rapid afib with rapid ventricular rate, now on Amiodorone 400mg BID Patient remains asymptomatic Cardiology following Diastolic dysfunction Assessment/Plan: Lasix 40mg daily, Losartan 25mg daily Endocrine: Diabetes mellitus - new diagnosis Assessment/Plan: monitor BGMs, sliding scale [id number] 8.6 Metformin on discharge Psyche: Polysubstance abuse Assessment/Plan: Methadone 70mg daily Morphine 4mg IV prn for breakthrough pain Monitor pain levels F.E.N. Fluids: advance diet as per surgery Electrolytes: hyponatremia @3.2, K 40meq x 1 followed by K 20meq x 1 @1800 Nutrition: diet adv. as per surgery Prophylaxis: DVT: On Xarelto 20mg daily GI: Protonix 40mg daily Disposition: Requires ICU monitoring, pending telemetry transfer. Full Code. Visit type - Emergency Visit Emergency Visit: Yes ED Registration Date: 12/22/16 Care time: The patient presented to the Emergency Department on the above date and was hospitalized for further evaluation of their emergent condition. - New Patient This patient is new to me today: No - Critical Care Critical Care patient: Yes Total Critical Care Time (in minutes): 45 Critical Care Statement: The care of this patient involved high complexity decision making to prevent further life threatening deterioration of the patient 's condition and/or to evalute & treat vital organ system(s) failure or risk of failure.
--- NOTE | 2017-01-05 14:43 | PN ---
Teaching Attending Note Name of Resident: Katrin Lee ATTENDING PHYSICIAN STATEMENT I saw and evaluated the patient. I reviewed the resident's note and discussed the case with the resident. I agree with the resident's findings and plan as documented. SUBJECTIVE: Patient seen and examined in the ICU. Awake and alert. Denies SOB or CP. Remains in rapid Afib. Intake & Output 01/02/17 01/03/17 01/04/17 01/05/17 23:59 23:59 23:59 23:59 Intake Total 2190 1453.1 1889.6 390 Output Total 710 114 6634 Balance 1430 1453.1 1789.6 -1310 Weight 205 lb 1 oz 204 lb 9.6 oz 203 lb 7.787 oz 197 lb 3.2 oz Last Vital Signs Temp Pulse Resp BP Pulse Ox 97.7 F 125 H 18 94/72 93 L 01/05/17 10:00 01/05/17 10:37 01/05/17 10:00 01/05/17 10:00 01/05/17 10:37 Active Medications Acetaminophen (Tylenol Oral Solution -) 650 mg PO Q6H PRN PRN Reason: FEVER OR PAIN Last Admin: 01/02/17 18:12 Dose: 650 mg Albuterol/Ipratropium (Duoneb -) 1 amp NEB Q6H PRN PRN Reason: SHORTNESS OF BREATH Last Admin: 01/01/17 20:25 Dose: 1 amp Amiodarone HCl (Cordarone -) 400 mg PO BID [facility] Last Admin: 01/05/17 10:15 Dose: 400 mg Digoxin (Lanoxin Injection -) 0.25 mg IVPUSH Q6H-IV [facility] Stop: 01/05/17 15:01 Last Admin: 01/05/17 08:17 Dose: 0.25 mg Diphenhydramine HCl (Benadryl -) 25 mg PO HS [facility] Last Admin: 01/04/17 21:19 Dose: 25 mg Furosemide (Lasix -) 40 mg PO DAILY [facility] Last Admin: 01/05/17 09:02 Dose: 40 mg Insulin Aspart (Novolog Vial Sliding Scale -) 1 vial SQ ACHS [facility] PRN Reason: Protocol Last Admin: 01/05/17 08:30 Dose: Not Given Methadone HCl 40 mg/ Methadone (HCl 30 mg) 70 mg PO DAILY@0600 [facility] Last Admin: 01/05/17 07:47 Dose: 70 mg Metoprolol Tartrate (Lopressor -) 25 mg PO TID [facility] Nystatin (Nystatin Oral Suspension -) 500,000 units PO Q6HPO [facility] Last Admin: 01/05/17 12:00 Dose: 500,000 units Pantoprazole Sodium (Protonix -) 40 mg PO DAILY [facility] Last Admin: 01/05/17 09:02 Dose: 40 mg Potassium Chloride ([place] -) 20 meq PO ONCE ONE Stop: 01/05/17 18:01 Rivaroxaban (Xarelto -) 20 mg PO DAILY [facility] Last Admin: 01/05/17 09:01 Dose: 20 mg Silver Sulfadiazine (Silvadene -) 1 applic TP DAILY [facility] Last Admin: 01/05/17 09:03 Dose: 1 applic Sodium Chloride ([place] Nasal [place] -) 2 spray NS BID PRN PRN Reason: NASAL CONGESTION Last Admin: 01/02/17 18:12 Dose: 2 spray Gen: mildly tachypneic at rest Heart: tachycardic, irregular Lung: scattered rhonchi RLL few crackles LLL Abd: soft, nontender Ext: LE + 2 edema, good pulses, warm feet, wounds wrapped and dry Laboratory Results - last 24 hr 01/04/17 01/05/17 01/05/17 21:30 05:30 05:30 WBC 24.2 H RBC 3.94 L Hgb 11.6 L Hct 35.7 MCV 90.5 MCHC 32.5 RDW 15.8 Plt Count 228 MPV 9.7 Neutrophils % 83.0 H Lymphocytes % 4.0 L Monocytes % 13.0 H Differential Comment Manual diff done Platelet Estimate Adequate Sodium 138 Potassium 3.2 L Chloride 98 Carbon Dioxide 28 Anion Gap 12 BUN 24 H Creatinine 1.3 Creat Clearance w eGFR 56.12 Random Glucose 122 H Calcium 8.0 L Total Bilirubin 0.5 D AST 24 D ALT 25 D Alkaline Phosphatase 129 H D Total Protein 4.6 L Albumin 1.8 L Urine Color Urine Appearance Urine pH Urine Protein Urine Glucose (UA) Urine Ketones Urine Blood Urine Nitrite Urine Bilirubin Urine Urobilinogen Ur Leukocyte Esterase Urine RBC Urine WBC Hyaline Casts Urine Mucus Vancomycin Trough 21.382 H* D 01/05/17 06:00 WBC RBC Hgb Hct MCV MCHC RDW Plt Count MPV Neutrophils % Lymphocytes % Monocytes % Differential Comment Platelet Estimate Sodium Potassium Chloride Carbon Dioxide Anion Gap BUN Creatinine Creat Clearance w eGFR Random Glucose Calcium Total Bilirubin AST ALT Alkaline Phosphatase Total Protein Albumin Urine Color Yellow Urine Appearance Clear Urine pH 5.0 Urine Protein Negative Urine Glucose (UA) Negative Urine Ketones Negative Urine Blood 3+ H Urine Nitrite Negative Urine Bilirubin Negative Urine Urobilinogen Negative Ur Leukocyte Esterase Negative Urine RBC 66 Urine WBC 10 Hyaline Casts 5 Urine Mucus Rare Vancomycin Trough ASSESSMENT AND PLAN: S/P Aorto-bifemoral Bypass 12/30 Paroxysmal Atrial Fibrillation with RVR PAD LE Ulcers/Cellulitis LV Diastolic Dysfunction COPD Smoker Patient has clinical history and risk factors for Obstructive Sleep Apnea - Amiodarone per cardiology - AC - ABX per ID - PO as tolerated - Pain control - Incentive spirometry - Inhaled bronchodilators - O2 as needed to maintain saturation - OOB to chair - Cardiac Telemetry monitoring Dr Smith critical care time spent in reviewing chart, evaluating patient and formulating plan 35 min
[2017-01-05] MEDS ORDERED: PT OWN MED DRAWER 7, Y5N ONE (14:45)
[2017-01-05] MEDS ORDERED: METOPROLOL TARTRATE 50 MG TABLET (FP) ONE (14:46)
[2017-01-05] MEDS: METOPROLOL TARTRATE 25 MG TABLET (FP) PO SCH ×2 (14:52→21:05)
--- NOTE | 2017-01-05 15:21 | PN ---
Physical Exam: SUBJECTIVE: Patient seen and examined. He doesn't have any complaints. He is eating well, passing flatus. He denies abdominal pain, SOB, chest pain. OBJECTIVE: Vital Signs Period Temp Pulse Resp BP Sys/Chatterjee Pulse Ox Last 24 Hr 97.7 F-98 F 104-130 16-27 79-102/60-88 93-94 GENERAL: The patient is awake, alert, and fully oriented, in no acute distress. HEAD: Normal with no signs of trauma. EYES: PERRL, extraocular movements intact, sclera anicteric, conjunctiva clear. No ptosis. ENT: Ears normal, nares patent, oropharynx clear without exudates, moist mucous membranes. NECK: Trachea midline, full range of motion, supple. LUNGS: Breath sounds equal, clear to auscultation bilaterally, no wheezes, no crackles, no accessory muscle use. HEART: Regular rate and rhythm, S1, S2 without murmur, rub or gallop. ABDOMEN: Soft, nontender, nondistended, normoactive bowel sounds, no guarding, no rebound, no hepatosplenomegaly, no masses, longitudinal scar in abdomen. EXTREMITIES: no edema NEUROLOGICAL: No facial asymmetry. Normal speech, gait not observed. PSYCH: Normal mood, normal affect. SKIN: Warm, dry, normal turgor, no rashes, longitudinal scar in abdomen, no erythema, drainage. Laboratory Results - last 24 hr 01/04/17 01/05/17 01/05/17 21:30 05:30 05:30 WBC 24.2 H RBC 3.94 L Hgb 11.6 L Hct 35.7 MCV 90.5 MCHC 32.5 RDW 15.8 Plt Count 228 MPV 9.7 Neutrophils % 83.0 H Lymphocytes % 4.0 L Monocytes % 13.0 H Differential Comment Manual diff done Platelet Estimate Adequate Sodium 138 Potassium 3.2 L Chloride 98 Carbon Dioxide 28 Anion Gap 12 BUN 24 H Creatinine 1.3 Creat Clearance w eGFR 56.12 Random Glucose 122 H Calcium 8.0 L Total Bilirubin 0.5 D AST 24 D ALT 25 D Alkaline Phosphatase 129 H D Total Protein 4.6 L Albumin 1.8 L Urine Color Urine Appearance Urine pH Urine Protein Urine Glucose (UA) Urine Ketones Urine Blood Urine Nitrite Urine Bilirubin Urine Urobilinogen Ur Leukocyte Esterase Urine RBC Urine WBC Hyaline Casts Urine Mucus Vancomycin Trough 21.382 H* D 01/05/17 06:00 WBC RBC Hgb Hct MCV MCHC RDW Plt Count MPV Neutrophils % Lymphocytes % Monocytes % Differential Comment Platelet Estimate Sodium Potassium Chloride Carbon Dioxide Anion Gap BUN Creatinine Creat Clearance w eGFR Random Glucose Calcium Total Bilirubin AST ALT Alkaline Phosphatase Total Protein Albumin Urine Color Yellow Urine Appearance Clear Urine pH 5.0 Urine Protein Negative Urine Glucose (UA) Negative Urine Ketones Negative Urine Blood 3+ H Urine Nitrite Negative Urine Bilirubin Negative Urine Urobilinogen Negative Ur Leukocyte Esterase Negative Urine RBC 66 Urine WBC 10 Hyaline Casts 5 Urine Mucus Rare Vancomycin Trough Active Medications Generic Name Dose Route Start Last Admin Trade Name Freq PRN Reason Stop Dose Admin Acetaminophen 650 mg 01/02/17 18:04 01/02/17 18:12 Tylenol Oral Solution - PO 650 mg Q6H PRN Administration FEVER OR PAIN Albuterol/Ipratropium 1 amp 12/31/16 13:34 01/01/17 20:25 Duoneb - NEB 1 amp Q6H PRN Administration SHORTNESS OF BREATH Amiodarone HCl 400 mg 01/05/17 10:00 01/05/17 10:15 Cordarone - PO 400 mg BID DOMINIC Administration Diphenhydramine HCl 25 mg 12/30/16 22:00 01/04/17 21:19 Benadryl - PO 25 mg HS DOMINIC Administration Furosemide 40 mg 12/31/16 10:00 01/05/17 09:02 Lasix - PO 40 mg DAILY DOMINIC Administration Insulin Aspart 1 vial 12/30/16 22:00 01/05/17 08:30 Novolog Vial Sliding Scale - SQ Not Given ACHS [facility] Protocol Methadone HCl 40 mg/ Methadone 70 mg 12/31/16 06:00 01/05/17 07:47 HCl 30 mg PO 70 mg DAILY@0600 DOMINIC Administration Metoprolol Tartrate 25 mg 01/05/17 14:00 01/05/17 14:52 Lopressor - PO 25 mg TID DOMINIC Administration Nystatin 500,000 units 12/31/16 00:00 01/05/17 12:00 Nystatin Oral Suspension - PO 500,000 units Q6HPO DOMINIC Administration Pantoprazole Sodium 40 mg 01/03/17 10:00 01/05/17 09:02 Protonix - PO 40 mg DAILY DOMINIC Administration Potassium Chloride 20 meq 01/05/17 18:00 K-Dur - PO 01/05/17 18:01 ONCE ONE Rivaroxaban 20 mg 12/31/16 10:00 01/05/17 09:01 Xarelto - PO 20 mg DAILY DOMINIC Administration Silver Sulfadiazine 1 applic 12/31/16 10:00 01/05/17 09:03 Silvadene - TP 1 applic DAILY DOMINIC Administration Sodium Chloride 2 spray 01/01/17 17:07 01/02/17 18:12 [place] Nasal [place] - NS 2 spray BID PRN Administration NASAL CONGESTION 12/24/16 15:30 Blood - Peripheral Venous Blood Culture - Final NO GROWTH AFTER 5 DAYS INCUBATION 12/24/16 16:00 Blood - Peripheral Venous Blood Culture - Final NO GROWTH AFTER 5 DAYS INCUBATION 12/22/16 09:00 Blood - Peripheral Venous Blood Culture - Final Brevibacterium Species 12/22/16 09:00 Blood - Peripheral Venous Blood Culture - Final Staphylococcus Aureus Enterococcus Casseliflavus Aerococcus Viridans ASSESSMENT/PLAN: 61 year old male with PMHx of newly diagnosed a.fib (on Xarelto), CHF, HTN, PAD R>L and venous ulcerations to b/l lower ext, on methadone for 5 years for heroin , admitted with bilateral wound cellulitis with weeping and A fib with RVR, to which he self converted. Neuro: Awake, follows commands Insomnia - Benadryl 25mg HS CVS: PAD w/ distal aorta and external iliac occlusion - s/p aorto-bifemoral bypass, 12/30/16 - pulses palpable b/l, b/l foot warm A fib with RVR - started on Amiodarone PO - on Xaralto - on Lopressor 50 bid - cardiology on case Diastolic dysfunction - Lasix 40mg daily - Losartan 25mg daily GI: no complaints -started regular diet pulm: RAYSA, we recommend outpatient sleep study ID: B/l lower extremity cellulitis/venous stasis wounds - Fever 100 F rectal, ordered Urine cultures - Silvadene and [place] bandage daily - ID f/u Endo: Newly diagnosed DM II - BGM, achs - insulin sliding scale - Metformin on discharge Methadone dependence/substance abuse hx - Methadone 70mg po daily Fluid: No electrolyte WNL nutrition; Regular diet dvt pro: on xarelto gi pro : pepcid dispo: icu, will transfer to Telemetry today Problem List - Problems (1) Atrial fibrillation with rapid ventricular response Code(s): I48.91 - UNSPECIFIED ATRIAL FIBRILLATION (2) CHF (congestive heart failure) Code(s): I50.9 - HEART FAILURE, UNSPECIFIED Qualifiers: Congestive heart failure type: diastolic Congestive heart failure chronicity: acute on chronic Qualified Code(s): I50.33 - Acute on chronic diastolic (congestive) heart failure (3) Cellulitis Code(s): L03.90 - CELLULITIS, UNSPECIFIED Qualifiers: Site of cellulitis of extremity: lower extremity Laterality: unspecified laterality (4) Methadone dependence Code(s): F11.20 - OPIOID DEPENDENCE, UNCOMPLICATED (5) PAD (peripheral artery disease) Code(s): I73.9 - PERIPHERAL VASCULAR DISEASE, UNSPECIFIED (6) S/P aorto-bifemoral bypass surgery Code(s): Z95.828 - PRESENCE OF OTHER VASCULAR IMPLANTS AND GRAFTS (7) Substance abuse Code(s): F19.10 - OTHER PSYCHOACTIVE SUBSTANCE ABUSE, UNCOMPLICATED Visit type - Emergency Visit Emergency Visit: Yes ED Registration Date: 12/22/16 Care time: The patient presented to the Emergency Department on the above date and was hospitalized for further evaluation of their emergent condition. - New Patient This patient is new to me today: No - Critical Care Critical Care patient: Yes Total Critical Care Time (in minutes): 40 Critical Care Statement: The care of this patient involved high complexity decision making to prevent further life threatening deterioration of the patient 's condition and/or to evalute & treat vital organ system(s) failure or risk of failure.
[2017-01-05] MEDS: diphenhydrAMINE HCL 25 MG CAPSULE (FP) PO SCH (21:05)
[2017-01-06] MEDS ORDERED: METHADONE HCL 40 MG DISPERSABLE TABLET ONE (06:00)
[2017-01-06] MEDS ORDERED: METHADONE HCL 10 MG TABLET ONE (06:01)
[2017-01-06] MEDS: METHADONE 40 MG, METHADONE 30 MG PO SCH (06:04)
[2017-01-06] MEDS: NYSTATIN 500,000 UNITS/5 ML SUSPENSION PO SCH ×5 (06:07→23:42)
[2017-01-06] MEDS: INSULIN SLIDING SCALE (NOVOLOG) 1 VIAL SQ SCH ×4 (06:07→21:54)
[2017-01-06] MEDS: METOPROLOL TARTRATE 25 MG TABLET (FP) PO SCH ×3 (06:13→21:53)
[2017-01-06 07:00] LABS: BASOPHIL 0.2 % (0-2.0); EOSINOPHIL 0.6 % (0-4.5); MCH 29.6 pg (25.7-33.7); MCHC 32.6 g/dl (32.0-35.9); MEAN CELL VOLUME 90.8 fl (80-96); MEAN PLT VOLUME 9.2 fl (7.5-11.1); NEUTROPHILS 84.4 % (42.8-82.8); PLATELET COUNT 240 K/MM3 (134-434); RDW 15.7 % (11.9-15.9)
[2017-01-06 08:13] LABS: ALBUMIN 1.9 g/dl (3.4-5.0); BILIRUBIN,TOTAL 0.5 mg/dL (0.2-1.0); CALCIUM 7.7 mg/dL (8.5-10.1); COCKROFT - GAULT 75.49; CREATININE 1.3 mg/dL (0.7-1.3); TOT PROT 4.4 g/dl (6.4-8.2)
[2017-01-06] MEDS ORDERED: PT OWN MED DRAWER 7, Y5N ONE (09:00)
[2017-01-06] MEDS: AMIODARONE HCL 200 MG TABLET (FP) PO SCH ×2 (09:21→21:53)
[2017-01-06] MEDS: RIVAROXABAN 20 MG TABLET PO SCH (09:21)
[2017-01-06] MEDS: PANTOPRAZOLE 40 MG TABLET (FP) PO SCH (09:21)
[2017-01-06] MEDS: FUROSEMIDE 40 MG TABLET (FP) PO SCH (09:21)
--- NOTE | 2017-01-06 10:36 | PN ---
Progress Note (short form) - Note Progress Note: S: 61 year old gentleman, with history of atrial fibrillation, peripheral arterial disease s/p surgery for aortic occlusion. History of opiod dependence. Patient denies any chest pain or discomfort either at rest or exertion. No exertional dyspnea reported. Still has periods of rapid ventricular response. Active Medications Generic Name Dose Route Start Last Admin Trade Name Freq PRN Reason Stop Dose Admin Acetaminophen 650 mg 01/02/17 18:04 01/02/17 18:12 Tylenol Oral Solution - PO 650 mg Q6H PRN Administration FEVER OR PAIN Albuterol/Ipratropium 1 amp 12/31/16 13:34 01/01/17 20:25 Duoneb - NEB 1 amp Q6H PRN Administration SHORTNESS OF BREATH Amiodarone HCl 400 mg 01/05/17 10:00 01/06/17 09:21 Cordarone - PO 400 mg BID DOMINIC Administration Diphenhydramine HCl 25 mg 12/30/16 22:00 01/05/17 21:05 Benadryl - PO 25 mg HS DOMINIC Administration Furosemide 40 mg 12/31/16 10:00 01/06/17 09:21 Lasix - PO 40 mg DAILY DOMINIC Administration Insulin Aspart 1 vial 12/30/16 22:00 01/06/17 06:07 Novolog Vial Sliding Scale - SQ Not Given ACHS DOMINIC Protocol Methadone HCl 40 mg/ Methadone 70 mg 12/31/16 06:00 01/06/17 06:04 HCl 30 mg PO 70 mg DAILY@0600 DOMINIC Administration Metoprolol Tartrate 25 mg 01/05/17 14:00 01/06/17 06:13 Lopressor - PO 25 mg TID DOMINIC Administration Nystatin 500,000 units 12/31/16 00:00 01/06/17 06:07 Nystatin Oral Suspension - PO 500,000 units Q6HPO DOMINIC Administration Pantoprazole Sodium 40 mg 01/03/17 10:00 01/06/17 09:21 Protonix - PO 40 mg DAILY DOMINIC Administration Rivaroxaban 20 mg 12/31/16 10:00 01/06/17 09:21 Xarelto - PO 20 mg DAILY DOMINIC Administration Silver Sulfadiazine 1 applic 12/31/16 10:00 01/05/17 09:03 Silvadene - TP 1 applic DAILY DOMINIC Administration Sodium Chloride 2 spray 01/01/17 17:07 01/02/17 18:12 [place] Nasal [place] - NS 2 spray BID PRN Administration NASAL CONGESTION O: 61 year old male was in no acute distress, no pallor, cyanosis, clubbing, or jaundice. Last Vital Signs Temp Pulse Resp BP Pulse Ox 98.2 F 114 Irregularly irregular 20 109/78 98 01/06/17 06:00 01/06/17 06:00 01/06/17 06:00 01/06/17 06:00 01/05/17 21:32 Neck: Supple, no JVD, negative HJR, carotids were equal and upstrokes were normal, no thyromegaly appreciated. Heart: PMI was in the 5th intercostal space, no heaves or thrills, S1 is variable and S2 was normal. No murmurs or gallops were appreciated. Lungs: Clear on auscultation bilaterally. Abdomen: Soft, nontender, no hepatosplenomegaly appreciated, large midline surgical wound. Extremities: No calf tenderness. Dependent edema involving the left lower extremity which is bandaged. CBC, BMP 01/06/17 05:47 01/06/17 05:47 Laboratory Results - last 24 hr 01/04/17 01/04/17 01/04/17 10:25 16:30 22:19 WBC RBC Hgb Hct MCV MCHC RDW Plt Count MPV Neutrophils % Lymphocytes % Monocytes % Eosinophils % Basophils % Sodium Potassium Chloride Carbon Dioxide Anion Gap BUN Creatinine Creat Clearance w eGFR POC Glucometer [phone] [phone] Random Glucose Calcium Total Bilirubin AST ALT Alkaline Phosphatase Total Protein Albumin Urine Color Urine Appearance Urine pH Ur Specific [place] Urine Protein Urine Glucose (UA) Urine Ketones Urine Blood Urine Nitrite Urine Bilirubin Urine Urobilinogen Ur Leukocyte Esterase Urine RBC Urine WBC Hyaline Casts Urine Mucus 01/05/17 01/05/17 01/05/17 05:41 06:00 15:17 WBC RBC Hgb Hct MCV MCHC RDW Plt Count MPV Neutrophils % Lymphocytes % Monocytes % Eosinophils % Basophils % Sodium Potassium Chloride Carbon Dioxide Anion Gap BUN Creatinine Creat Clearance w eGFR POC Glucometer [phone] Random Glucose Calcium Total Bilirubin AST ALT Alkaline Phosphatase Total Protein Albumin Urine Color Yellow Urine Appearance Clear Urine pH 5.0 Ur Specific [place] 1.015 Urine Protein Negative Urine Glucose (UA) Negative Urine Ketones Negative Urine Blood 3+ H Urine Nitrite Negative Urine Bilirubin Negative Urine Urobilinogen Negative Ur Leukocyte Esterase Negative Urine RBC 66 Urine WBC 10 Hyaline Casts 5 Urine Mucus Rare 01/05/17 01/05/17 01/06/17 16:47 21:04 05:39 WBC RBC Hgb Hct MCV MCHC RDW Plt Count MPV Neutrophils % Lymphocytes % Monocytes % Eosinophils % Basophils % Sodium Potassium Chloride Carbon Dioxide Anion Gap BUN Creatinine Creat Clearance w eGFR POC Glucometer 125 133 92 Random Glucose Calcium Total Bilirubin AST ALT Alkaline Phosphatase Total Protein Albumin Urine Color Urine Appearance Urine pH Ur Specific [place] Urine Protein Urine Glucose (UA) Urine Ketones Urine Blood Urine Nitrite Urine Bilirubin Urine Urobilinogen Ur Leukocyte Esterase Urine RBC Urine WBC Hyaline Casts Urine Mucus 01/06/17 01/06/17 05:47 05:47 WBC 24.0 H RBC 3.94 L Hgb 11.7 Hct 35.8 MCV 90.8 MCHC 32.6 RDW 15.7 Plt Count 240 MPV 9.2 Neutrophils % 84.4 H Lymphocytes % 5.7 L D Monocytes % 9.1 Eosinophils % 0.6 Basophils % 0.2 Sodium 138 Potassium 3.8 Chloride 99 Carbon Dioxide 30 Anion Gap 9 BUN 21 H Creatinine 1.3 Creat Clearance w eGFR 56.12 POC Glucometer Random Glucose 85 D Calcium 7.7 L Total Bilirubin 0.5 AST 28 ALT 24 Alkaline Phosphatase 137 H Total Protein 4.4 L Albumin 1.9 L Urine Color Urine Appearance Urine pH Ur Specific [place] Urine Protein Urine Glucose (UA) Urine Ketones Urine Blood Urine Nitrite Urine Bilirubin Urine Urobilinogen Ur Leukocyte Esterase Urine RBC Urine WBC Hyaline Casts Urine Mucus Impression: (1) Atrial fibrillation with rapid ventricular response Code(s): I48.91 - UNSPECIFIED ATRIAL FIBRILLATION (2) Cellulitis Code(s): L03.90 - CELLULITIS, UNSPECIFIED Qualifiers: Site of cellulitis of extremity: lower extremity Laterality: unspecified laterality (3) Methadone dependence Code(s): F11.20 - OPIOID DEPENDENCE, UNCOMPLICATED (4) PAD (peripheral artery disease) Code(s): I73.9 - PERIPHERAL VASCULAR DISEASE, UNSPECIFIED (5) Substance abuse Code(s): F19.10 - OTHER PSYCHOACTIVE SUBSTANCE ABUSE, UNCOMPLICATED (6) Diastolic dysfunction Code(s): I51.9 - HEART DISEASE, UNSPECIFIED (7) S/P aorto-bifemoral bypass surgery Code(s): Z95.828 - PRESENCE OF OTHER VASCULAR IMPLANTS AND GRAFTS (8) Occlusion of the abdominal aorta Recommendations: 1. Cessation of smoking and other risk modifications. 2. If patient continues to have rapid ventricular response, dose of beta mercy may need to be increased. Attestation: Documentation prepared by Boni Arora, acting as medical assistant instructor for Willis Mccauley MD.
[2017-01-06] MEDS: SILVER SULFADIAZINE 1% TOP CREAM 50 GM JAR TP SCH (12:29)
--- NOTE | 2017-01-06 12:58 | PN ---
Progress Note, Physician History of Present Illness: patient continues to improve still having dirrhoea no complaints sitting in chair transferred out of icu - Current Medication List Current Medications: Active Medications Acetaminophen (Tylenol Oral Solution -) 650 mg PO Q6H PRN PRN Reason: FEVER OR PAIN Last Admin: 01/02/17 18:12 Dose: 650 mg Albuterol/Ipratropium (Duoneb -) 1 amp NEB Q6H PRN PRN Reason: SHORTNESS OF BREATH Last Admin: 01/01/17 20:25 Dose: 1 amp Amiodarone HCl (Cordarone -) 400 mg PO BID [facility] Last Admin: 01/06/17 09:21 Dose: 400 mg Diphenhydramine HCl (Benadryl -) 25 mg PO HS [facility] Last Admin: 01/05/17 21:05 Dose: 25 mg Furosemide (Lasix -) 40 mg PO DAILY [facility] Last Admin: 01/06/17 09:21 Dose: 40 mg Insulin Aspart (Novolog Vial Sliding Scale -) 1 vial SQ ACHS [facility] PRN Reason: Protocol Last Admin: 01/06/17 12:30 Dose: Not Given Methadone HCl 40 mg/ Methadone (HCl 30 mg) 70 mg PO DAILY@0600 [facility] Last Admin: 01/06/17 06:04 Dose: 70 mg Metoprolol Tartrate (Lopressor -) 25 mg PO TID [facility] Last Admin: 01/06/17 06:13 Dose: 25 mg Nystatin (Nystatin Oral Suspension -) 500,000 units PO Q6HPO [facility] Last Admin: 01/06/17 12:31 Dose: 500,000 units Pantoprazole Sodium (Protonix -) 40 mg PO DAILY [facility] Last Admin: 01/06/17 09:21 Dose: 40 mg Rivaroxaban (Xarelto -) 20 mg PO DAILY [facility] Last Admin: 01/06/17 09:21 Dose: 20 mg Silver Sulfadiazine (Silvadene -) 1 applic TP DAILY [facility] Last Admin: 01/06/17 12:29 Dose: 1 applic Sodium Chloride ([place] Nasal [place] -) 2 spray NS BID PRN PRN Reason: NASAL CONGESTION Last Admin: 01/02/17 18:12 Dose: 2 spray - Objective Vital Signs: Vital Signs Temperature 98.4 F 01/06/17 10:00 Pulse Rate 99 H 01/06/17 11:30 Respiratory Rate 20 01/06/17 10:00 Blood Pressure 109/69 01/06/17 10:00 O2 Sat by Pulse Oximetry (%) 93 L 01/06/17 11:30 Constitutional: Yes: No Distress, Calm Cardiovascular: Yes: Pulse Irregular Respiratory: Yes: Regular, CTA Bilaterally Gastrointestinal: Yes: Normal Bowel Sounds, Soft Musculoskeletal: Yes: Other Extremities: Yes: Other Edema: LLE: Trace, RLE: Trace Integumentary: Yes: Other Wound/Incision: Yes: Other (healing well abd wound looks good) Neurological: Yes: Alert, Oriented Psychiatric: Yes: Alert, Oriented Labs: CBC, BMP 01/06/17 05:47 01/06/17 05:47 INR, PTT INR 1.59 (0.82-1.09) H D 01/04/17 05:30 Assessment/Plan - Problems (1) Atrial fibrillation with rapid ventricular response Code(s): I48.91 - UNSPECIFIED ATRIAL FIBRILLATION (2) Cellulitis Code(s): L03.90 - CELLULITIS, UNSPECIFIED Qualifiers: Site of cellulitis of extremity: lower extremity Laterality: unspecified laterality (3) Methadone dependence Code(s): F11.20 - OPIOID DEPENDENCE, UNCOMPLICATED (4) PAD (peripheral artery disease) Code(s): I73.9 - PERIPHERAL VASCULAR DISEASE, UNSPECIFIED (5) Substance abuse Code(s): F19.10 - OTHER PSYCHOACTIVE SUBSTANCE ABUSE, UNCOMPLICATED (6) Diastolic dysfunction Code(s): I51.9 - HEART DISEASE, UNSPECIFIED wound infection plan will give vanco one dose again cdiff negative will continue to monitor wbc rest continue as per primary team
--- NOTE | 2017-01-06 15:37 | PN ---
Physical Exam: SUBJECTIVE: Patient seen and examined. He is oob to chair, he is still having lose stool Tele: - Afib HR 112 OBJECTIVE: Vital Signs Period Temp Pulse Resp BP Sys/Chatterjee Pulse Ox Last 24 Hr 97.7 F-99.5 F 83-123 18-20 98-127/56-78 92-98 PE Neuro: alert, awake, cn 2-12 intact HEENT: poor dentition Pulm: basilar crackles, diminished CV: s1 s2 irregular rhythm, rate Abd: s nt nd + bs : alberto Ext: b/l lower ext wounds closed, mild erythema surrounding wounds, +2 edema Skin: b/l groin incision CDI Laboratory Results - last 24 hr 01/06/17 01/06/17 01/06/17 05:47 05:47 11:54 WBC 24.0 H RBC 3.94 L Hgb 11.7 Hct 35.8 MCV 90.8 MCHC 32.6 RDW 15.7 Plt Count 240 MPV 9.2 Neutrophils % 84.4 H Lymphocytes % 5.7 L D Monocytes % 9.1 Eosinophils % 0.6 Basophils % 0.2 Sodium 138 Potassium 3.8 Chloride 99 Carbon Dioxide 30 Anion Gap 9 BUN 21 H Creatinine 1.3 Creat Clearance w eGFR 56.12 POC Glucometer 122 Random Glucose 85 D Calcium 7.7 L Total Bilirubin 0.5 AST 28 ALT 24 Alkaline Phosphatase 137 H Total Protein 4.4 L Albumin 1.9 L Ur Specific [place] Urine RBC Active Medications Generic Name Dose Route Start Last Admin Trade Name Freq PRN Reason Stop Dose Admin Acetaminophen 650 mg 01/02/17 18:04 01/02/17 18:12 Tylenol Oral Solution - PO 650 mg Q6H PRN Administration FEVER OR PAIN Albuterol/Ipratropium 1 amp 12/31/16 13:34 01/01/17 20:25 Duoneb - NEB 1 amp Q6H PRN Administration SHORTNESS OF BREATH Amiodarone HCl 400 mg 01/05/17 10:00 01/06/17 09:21 Cordarone - PO 400 mg BID DOMINIC Administration Diphenhydramine HCl 25 mg 12/30/16 22:00 01/05/17 21:05 Benadryl - PO 25 mg HS DOMINIC Administration Furosemide 40 mg 12/31/16 10:00 01/06/17 09:21 Lasix - PO 40 mg DAILY DOMINIC Administration Insulin Aspart 1 vial 12/30/16 22:00 01/06/17 12:30 Novolog Vial Sliding Scale - SQ Not Given ACHS [facility] Protocol Lactobacillus Acidophilus 1 tab 01/06/17 15:30 Bacid - PO DAILY DOMINIC Methadone HCl 40 mg/ Methadone 70 mg 12/31/16 06:00 01/06/17 06:04 HCl 30 mg PO 70 mg DAILY@0600 DOMINIC Administration Metoprolol Tartrate 25 mg 01/05/17 14:00 01/06/17 06:13 Lopressor - PO 25 mg TID DOMINIC Administration Nystatin 500,000 units 12/31/16 00:00 01/06/17 12:31 Nystatin Oral Suspension - PO 500,000 units Q6HPO [facility]INIC Administration Pantoprazole Sodium 40 mg 01/03/17 10:00 01/06/17 09:21 Protonix - PO 40 mg DAILY DOMINIC Administration Rivaroxaban 20 mg 12/31/16 10:00 01/06/17 09:21 Xarelto - PO 20 mg DAILY [facility]INIC Administration Silver Sulfadiazine 1 applic 12/31/16 10:00 01/06/17 12:29 Silvadene - TP 1 applic DAILY [facility]INIC Administration Sodium Chloride 2 spray 01/01/17 17:07 01/02/17 18:12 [place] Nasal [place] - NS 2 spray BID PRN Administration NASAL CONGESTION Imaging: - Stress test with small size, mild intensity reversible defect of inferior wall from base to mid consistent with mild ischemia, LVEF 71% - ECHO 12/23 with normal LV size and function. RV normal size. Mod MR, mild TR Assessment: 61 year old male with PMHx of newly diagnosed a.fib (on Xarelto), CHF, HTN, PAD R>L and venous ulcerations to b/l lower ext, opioid dependence ( on methadone for 5 years for heroin) admitted with bilateral wound cellulitis with weeping and A fib with RVR, s/p aorto-bifemoral 12/30/16. Plan: 1. PAD with distal aorta and external iliac occlusion - s/p aorto-bifemoral bypass 12/30 - Daily PT 2. Afib with RVR - Amiodarone 400mg BID - Lopressor 25mg TID - Xarelto 20mg 3. Diastolic heart failure - Cozaar 25 qday - Lasix 40mg daily 4. Diarrhea - Maintain alberto - C diff negative - Stool cx neg - Start bacid 5. Bilateral venous stasis wounds - Daily Silvadene 6. DM II, newly diagnosed - Start Metformin tomorrow - ISS, BGM ACHS - Hgba1c 8.6 7. Polysubstance abuse - Methadone 70mg daily 8. PPX DVT: On Xarelto 20mg daily GI: Protonix 40mg daily Problem List - Problems (1) Atrial fibrillation with rapid ventricular response Code(s): I48.91 - UNSPECIFIED ATRIAL FIBRILLATION (2) Cellulitis Code(s): L03.90 - CELLULITIS, UNSPECIFIED Qualifiers: Site of cellulitis of extremity: lower extremity Laterality: unspecified laterality (3) Skin breakdown Code(s): L90.9 - ATROPHIC DISORDER OF SKIN, UNSPECIFIED (4) CHF (congestive heart failure) Code(s): I50.9 - HEART FAILURE, UNSPECIFIED Qualifiers: Congestive heart failure type: diastolic Congestive heart failure chronicity: acute on chronic Qualified Code(s): I50.33 - Acute on chronic diastolic (congestive) heart failure (5) PAD (peripheral artery disease) Code(s): I73.9 - PERIPHERAL VASCULAR DISEASE, UNSPECIFIED (6) Methadone dependence Code(s): F11.20 - OPIOID DEPENDENCE, UNCOMPLICATED (7) Substance abuse Code(s): F19.10 - OTHER PSYCHOACTIVE SUBSTANCE ABUSE, UNCOMPLICATED Visit type - Emergency Visit Emergency Visit: Yes ED Registration Date: 12/22/16 Care time: The patient presented to the Emergency Department on the above date and was hospitalized for further evaluation of their emergent condition. - New Patient This patient is new to me today: No - Critical Care Critical Care patient: No
[2017-01-06] MEDS: LACTOBACILLUS ACIDOPHILUS 1 EACH TAB (FP) PO SCH (15:56)
[2017-01-06] MEDS: diphenhydrAMINE HCL 25 MG CAPSULE (FP) PO SCH (21:53)
[2017-01-06] MEDS ORDERED: VANCOMYCIN 1,250 MG in DEXTROSE 5%-WATER - 250 ML IVPB ONE (22:26)
[2017-01-07] MEDS ORDERED: METHADONE HCL 40 MG DISPERSABLE TABLET ONE (05:57)
[2017-01-07] MEDS ORDERED: METHADONE HCL 10 MG TABLET ONE (05:57)
[2017-01-07] MEDS: METHADONE 40 MG, METHADONE 30 MG PO SCH (06:02)
[2017-01-07] MEDS: NYSTATIN 500,000 UNITS/5 ML SUSPENSION PO SCH ×4 (06:02→23:21)
[2017-01-07] MEDS: METOPROLOL TARTRATE 25 MG TABLET (FP) PO SCH ×3 (06:02→22:29)
[2017-01-07] MEDS: INSULIN SLIDING SCALE (NOVOLOG) 1 VIAL SQ SCH ×4 (06:06→22:29)
[2017-01-07 06:54] LABS: BASOPHIL 0.5 % (0-2.0); EOSINOPHIL 0.9 % (0-4.5); MCH 29.5 pg (25.7-33.7); MCHC 32.4 g/dl (32.0-35.9); MEAN CELL VOLUME 91.1 fl (80-96); PLATELET COUNT 245 K/MM3 (134-434); RDW 15.3 % (11.9-15.9); WHITE BLOOD COUNT 24.4 K/mm3 (4.0-10.0)
[2017-01-07] MEDS ORDERED: metFORMIN HCL 500 MG TABLET (FP) PO SCH (07:00)
[2017-01-07] MEDS ORDERED: PT OWN MED DRAWER 7, Y5N ONE ×2 (08:49→16:56)
[2017-01-07] MEDS: LACTOBACILLUS ACIDOPHILUS 1 EACH TAB (FP) PO SCH (08:59)
[2017-01-07] MEDS: AMIODARONE HCL 200 MG TABLET (FP) PO SCH ×2 (08:59→22:29)
[2017-01-07] MEDS: RIVAROXABAN 20 MG TABLET PO SCH (08:59)
[2017-01-07] MEDS: FUROSEMIDE 40 MG TABLET (FP) PO SCH (08:59)
[2017-01-07] MEDS: PANTOPRAZOLE 40 MG TABLET (FP) PO SCH (08:59)
--- NOTE | 2017-01-07 09:28 | PN ---
Physical Exam: SUBJECTIVE: Patient seen and examined. No acute events. HR controlled. Pt offers no complaints, fever, chills, sob. Ambulating the halls with PT. Events: - diarrhea x1 overnight and this AM, liquid OBJECTIVE: Vital Signs Period Temp Pulse Resp BP Sys/Chatterjee Pulse Ox Last 24 Hr 97.7 F-98.8 F 61-101 18-20 102-117/35-74 92-97 PE Neuro: alert, awake, cn 2-12 intact Pulm: basilar crackles, no wheezing CV: s1 s2 irregular rhythm, rate Abd: incision from substernal to lower abd with ana CDI, no erythema, no tenderness, abd soft : alberto Ext: b/l lower ext wounds closed, mild erythema surrounding wounds, +2 edema Skin: b/l groin incision CDI CBCD WBC 24.4 K/mm3 (4.0-10.0) H 01/07/17 05:35 RBC 3.97 M/mm3 (4.00-5.60) L 01/07/17 05:35 Hgb 11.7 GM/dL (11.7-16.9) 01/07/17 05:35 Hct 36.1 % (35.4-49) 01/07/17 05:35 MCV 91.1 fl (80-96) 01/07/17 05:35 MCHC 32.4 g/dl (32.0-35.9) 01/07/17 05:35 RDW 15.3 % (11.9-15.9) 01/07/17 05:35 Plt Count 245 K/MM3 (134-434) 01/07/17 05:35 MPV 9.0 fl (7.5-11.1) 01/07/17 05:35 01/06/17 19:20 Random Vancomycin 9.193 Active Medications Generic Name Dose Route Start Last Admin Trade Name Freq PRN Reason Stop Dose Admin Acetaminophen 650 mg 01/02/17 18:04 01/02/17 18:12 Tylenol Oral Solution - PO 650 mg Q6H PRN Administration FEVER OR PAIN Albuterol/Ipratropium 1 amp 12/31/16 13:34 01/01/17 20:25 Duoneb - NEB 1 amp Q6H PRN Administration SHORTNESS OF BREATH Amiodarone HCl 400 mg 01/05/17 10:00 01/07/17 08:59 Cordarone - PO 400 mg BID [facility] Administration Diphenhydramine HCl 25 mg 12/30/16 22:00 01/06/17 21:53 Benadryl - PO 25 mg HS [facility] Administration Furosemide 40 mg 12/31/16 10:00 01/07/17 08:59 Lasix - PO 40 mg DAILY [facility] Administration Meropenem 1 gm/ Dextrose 100 mls @ 100 mls/hr 01/07/17 10:00 IVPB Q8H-IV [facility] Protocol Insulin Aspart 1 vial 12/30/16 22:00 01/07/17 06:06 Novolog Vial Sliding Scale - SQ Not Given ACHS [facility] Protocol Lactobacillus Acidophilus 1 tab 01/06/17 15:30 01/07/17 08:59 Bacid - PO 1 tab DAILY [facility] Administration Metformin HCl 500 mg 01/07/17 07:00 01/07/17 06:10 Glucophage - PO 500 mg DAILY@0700 [facility] Administration Methadone HCl 40 mg/ Methadone 70 mg 12/31/16 06:00 01/07/17 06:02 HCl 30 mg PO 70 mg DAILY@0600 [facility] Administration Metoprolol Tartrate 25 mg 01/05/17 14:00 01/07/17 06:02 Lopressor - PO 25 mg TID [facility] Administration Nystatin 500,000 units 12/31/16 00:00 01/07/17 06:02 Nystatin Oral Suspension - PO 500,000 units Q6HPO [facility] Administration Pantoprazole Sodium 40 mg 01/03/17 10:00 01/07/17 08:59 Protonix - PO 40 mg DAILY [facility] Administration Rivaroxaban 20 mg 12/31/16 10:00 01/07/17 08:59 Xarelto - PO 20 mg DAILY [facility] Administration Silver Sulfadiazine 1 applic 12/31/16 10:00 01/06/17 12:29 Silvadene - TP 1 applic DAILY [facility] Administration Sodium Chloride 2 spray 01/01/17 17:07 01/02/17 18:12 [place] Nasal [place] - NS 2 spray BID PRN Administration NASAL CONGESTION Imaging: - Stress test with small size, mild intensity reversible defect of inferior wall from base to mid consistent with mild ischemia, LVEF 71% - ECHO 12/23 with normal LV size and function. RV normal size. Mod MR, mild TR Assessment: 61 year old male with PMHx of newly diagnosed A.fib (on Xarelto), CHF, HTN, PAD R>L and venous ulcerations to b/l lower ext, opioid dependence ( on methadone for 5 years for heroin) admitted with bilateral wound cellulitis with weeping and A fib with RVR, s/p aorto-bifemoral 12/30/16. Plan: 1. Leukocytosis - Possible abdominal abscess, however too soon and no abd signs, vs diarrhea vs dehydration - Vanco x1 dose last night - Restart Meropenem 1gm q8 (pcn ax) - Monitor for response 2. PAD with distal aorta and external iliac occlusion - s/p aorto-bifemoral bypass 12/30 - WBC elevated, see above 3. Afib with RVR - Controlled - Amiodarone 400mg BID - Lopressor 25mg TID - Xarelto 20mg 4. Diastolic heart failure - Cozaar 25 qday - Pt weight up 8kg - Restart lasix IV 40mg daily, extra dose now 5. Diarrhea - Improved - DC alberto, pt ambulating - C diff negative - Stool cx neg - Continue bacid 6. Bilateral venous stasis wounds - Daily Silvadene 7. DM II, newly diagnosed - Received metformin this AM, will d/c for c/o evolving ifxn - ISS, BGM ACHS - Hgba1c 8.6 8. Polysubstance abuse - Methadone 70mg daily 9. PPX DVT: On Xarelto 20mg daily GI: Protonix 40mg daily Daily PT Problem List - Problems (1) Atrial fibrillation with rapid ventricular response Code(s): I48.91 - UNSPECIFIED ATRIAL FIBRILLATION (2) Cellulitis Code(s): L03.90 - CELLULITIS, UNSPECIFIED Qualifiers: Qualified Code(s): L03.119 - Cellulitis of unspecified part of limb (3) Skin breakdown Code(s): L90.9 - ATROPHIC DISORDER OF SKIN, UNSPECIFIED (4) CHF (congestive heart failure) Code(s): I50.9 - HEART FAILURE, UNSPECIFIED Qualifiers: Qualified Code(s): I50.33 - Acute on chronic diastolic (congestive) heart failure (5) PAD (peripheral artery disease) Code(s): I73.9 - PERIPHERAL VASCULAR DISEASE, UNSPECIFIED (6) Methadone dependence Code(s): F11.20 - OPIOID DEPENDENCE, UNCOMPLICATED (7) Substance abuse Code(s): F19.10 - OTHER PSYCHOACTIVE SUBSTANCE ABUSE, UNCOMPLICATED Visit type - Emergency Visit Emergency Visit: Yes ED Registration Date: 12/22/16 Care time: The patient presented to the Emergency Department on the above date and was hospitalized for further evaluation of their emergent condition. - New Patient This patient is new to me today: No - Critical Care Critical Care patient: No
[2017-01-07] MEDS: MEROPENEM 1 GM in DEXTROSE 5%-WATER - 100 ML IVPB SCH ×2 (10:35→17:04)
[2017-01-07] MEDS: SILVER SULFADIAZINE 1% TOP CREAM 50 GM JAR TP SCH (10:35)
--- NOTE | 2017-01-07 13:45 | PN ---
Progress Note (short form) - Note Progress Note: PULMONARY Denies shortness of breath, chest pain or palpitations. Last Vital Signs Temp Pulse Resp BP Pulse Ox 99.3 F 61 18 107/61 95 01/07/17 09:00 01/07/17 09:00 01/07/17 09:00 01/07/17 09:00 01/07/17 09:00 Gen: NAD at rest Heart: RRR Lung: distant breath sounds Abd: soft, nontender Ext: + edema CBC, BMP 01/07/17 05:35 01/06/17 05:47 Active Medications Acetaminophen (Tylenol Oral Solution -) 650 mg PO Q6H PRN PRN Reason: FEVER OR PAIN Last Admin: 01/02/17 18:12 Dose: 650 mg Albuterol/Ipratropium (Duoneb -) 1 amp NEB Q6H PRN PRN Reason: SHORTNESS OF BREATH Last Admin: 01/01/17 20:25 Dose: 1 amp Amiodarone HCl (Cordarone -) 400 mg PO BID [facility] Last Admin: 01/07/17 08:59 Dose: 400 mg Diphenhydramine HCl (Benadryl -) 25 mg PO HS [facility] Last Admin: 01/06/17 21:53 Dose: 25 mg Furosemide (Lasix -) 40 mg PO DAILY [facility] Last Admin: 01/07/17 08:59 Dose: 40 mg Meropenem 1 gm/ Dextrose 100 mls @ 100 mls/hr IVPB Q8H-IV [facility] PRN Reason: Protocol Last Admin: 01/07/17 10:35 Dose: 100 mls/hr Insulin Aspart (Novolog Vial Sliding Scale -) 1 vial SQ ACHS [facility] PRN Reason: Protocol Last Admin: 01/07/17 11:09 Dose: Not Given Lactobacillus Acidophilus (Bacid -) 1 tab PO DAILY [facility] Last Admin: 01/07/17 08:59 Dose: 1 tab Methadone HCl 40 mg/ Methadone (HCl 30 mg) 70 mg PO DAILY@0600 [facility] Last Admin: 01/07/17 06:02 Dose: 70 mg Metoprolol Tartrate (Lopressor -) 25 mg PO TID [facility] Last Admin: 01/07/17 06:02 Dose: 25 mg Nystatin (Nystatin Oral Suspension -) 500,000 units PO Q6HPO [facility] Last Admin: 01/07/17 11:09 Dose: Not Given Pantoprazole Sodium (Protonix -) 40 mg PO DAILY [facility] Last Admin: 01/07/17 08:59 Dose: 40 mg Rivaroxaban (Xarelto -) 20 mg PO DAILY [facility] Last Admin: 01/07/17 08:59 Dose: 20 mg Silver Sulfadiazine (Silvadene -) 1 applic TP DAILY [facility] Last Admin: 01/07/17 10:35 Dose: 1 applic Sodium Chloride ([place] Nasal [place] -) 2 spray NS BID PRN PRN Reason: NASAL CONGESTION Last Admin: 01/02/17 18:12 Dose: 2 spray A/P s/p Aorto-bifemoral Bypass / Paroxysmal Atrial Fibrillation with RVR PAD LE Ulcers/Cellulitis LV Diastolic Dysfunction COPD Smoker - metoprolol, amiodarone for rate control - continue anticoagulation - continue antibiotics - pain control - incentive spirometry - inhaled bronchodilators - O2 to keep SpO2 >90% - OOB to chair
--- NOTE | 2017-01-07 13:53 | PN ---
Progress Note, Physician History of Present Illness: Back in sinus rhythm on amio, denies chest pain or dyspnea. - Current Medication List Current Medications: Active Medications Acetaminophen (Tylenol Oral Solution -) 650 mg PO Q6H PRN PRN Reason: FEVER OR PAIN Last Admin: 01/02/17 18:12 Dose: 650 mg Albuterol/Ipratropium (Duoneb -) 1 amp NEB Q6H PRN PRN Reason: SHORTNESS OF BREATH Last Admin: 01/01/17 20:25 Dose: 1 amp Amiodarone HCl (Cordarone -) 400 mg PO BID [facility] Last Admin: 01/07/17 08:59 Dose: 400 mg Diphenhydramine HCl (Benadryl -) 25 mg PO HS [facility] Last Admin: 01/06/17 21:53 Dose: 25 mg Furosemide (Lasix -) 40 mg PO DAILY [facility] Last Admin: 01/07/17 08:59 Dose: 40 mg Meropenem 1 gm/ Dextrose 100 mls @ 100 mls/hr IVPB Q8H-IV [facility] PRN Reason: Protocol Last Admin: 01/07/17 10:35 Dose: 100 mls/hr Insulin Aspart (Novolog Vial Sliding Scale -) 1 vial SQ ACHS [facility] PRN Reason: Protocol Last Admin: 01/07/17 11:09 Dose: Not Given Lactobacillus Acidophilus (Bacid -) 1 tab PO DAILY [facility] Last Admin: 01/07/17 08:59 Dose: 1 tab Methadone HCl 40 mg/ Methadone (HCl 30 mg) 70 mg PO DAILY@0600 [facility] Last Admin: 01/07/17 06:02 Dose: 70 mg Metoprolol Tartrate (Lopressor -) 25 mg PO TID [facility] Last Admin: 01/07/17 06:02 Dose: 25 mg Nystatin (Nystatin Oral Suspension -) 500,000 units PO Q6HPO [facility] Last Admin: 01/07/17 11:09 Dose: Not Given Pantoprazole Sodium (Protonix -) 40 mg PO DAILY [facility] Last Admin: 01/07/17 08:59 Dose: 40 mg Rivaroxaban (Xarelto -) 20 mg PO DAILY [facility] Last Admin: 01/07/17 08:59 Dose: 20 mg Silver Sulfadiazine (Silvadene -) 1 applic TP DAILY [facility] Last Admin: 01/07/17 10:35 Dose: 1 applic Sodium Chloride ([place] Nasal [place] -) 2 spray NS BID PRN PRN Reason: NASAL CONGESTION Last Admin: 01/02/17 18:12 Dose: 2 spray - Objective Vital Signs: Vital Signs Temperature 99.3 F 01/07/17 09:00 Pulse Rate 61 01/07/17 09:00 Respiratory Rate 18 01/07/17 09:00 Blood Pressure 107/61 01/07/17 09:00 O2 Sat by Pulse Oximetry (%) 95 01/07/17 09:00 Constitutional: Yes: No Distress, Calm Neck: Yes: Supple Cardiovascular: Yes: Regular Rate and Rhythm Respiratory: Yes: Regular, Diminished, On Nasal O2 Gastrointestinal: Yes: Normal Bowel Sounds, Soft, Abdomen, Obese Genitourinary: Yes: [place] Present Edema: Yes Edema: LLE: Trace, RLE: Trace Labs: CBC, BMP 01/07/17 05:35 01/06/17 05:47 INR, PTT INR 1.59 (0.82-1.09) H D 01/04/17 05:30 Problem List - Problems (1) Atrial fibrillation with rapid ventricular response Code(s): I48.91 - UNSPECIFIED ATRIAL FIBRILLATION (2) Cellulitis Code(s): L03.90 - CELLULITIS, UNSPECIFIED Qualifiers: Site of cellulitis of extremity: lower extremity Laterality: unspecified laterality (3) Methadone dependence Code(s): F11.20 - OPIOID DEPENDENCE, UNCOMPLICATED (4) PAD (peripheral artery disease) Code(s): I73.9 - PERIPHERAL VASCULAR DISEASE, UNSPECIFIED (5) Substance abuse Code(s): F19.10 - OTHER PSYCHOACTIVE SUBSTANCE ABUSE, UNCOMPLICATED (6) Diastolic dysfunction Code(s): I51.9 - HEART DISEASE, UNSPECIFIED (7) S/P aorto-bifemoral bypass surgery Code(s): Z95.828 - PRESENCE OF OTHER VASCULAR IMPLANTS AND GRAFTS Assessment/Plan 1. Paroxysmal atrial fibrillation/atrial flutter now in sinus rhythm [id number] score of 2, on NOAC's 2. CAD angina pectoris 3. LV diastolic dysfunction with chronic class 0-I NYHA classification LV failure, compensated 4. PAD with distal aortic occlusion and common and external iliac artery occlusion s/p Aorto-bifemoral Bypass 12/30 5. Bilateral lower extremity ulcers/cellulitis, resolving 6. Non-compliance history 7. COPD, smoker PLAN: 1. Continue Xarelto 20 qPM 2. Continue Lopressor 25 tid as hemodynamics permitting 3. Continue Lasix 40 qd 4. Decrease Amiodarone 200 bid 5. Antibiotic as per the primary team 6. OOB to chair, PT and encourage mobilization
[2017-01-07] MEDS: FUROSEMIDE 40 MG/4 ML INJECTABLE VIAL IVPUSH SCH (14:22)
--- NOTE | 2017-01-07 19:06 | PN ---
Progress Note, Physician History of Present Illness: patient stable no issues says he is feeling well - Current Medication List Current Medications: Active Medications Acetaminophen (Tylenol Oral Solution -) 650 mg PO Q6H PRN PRN Reason: FEVER OR PAIN Last Admin: 01/02/17 18:12 Dose: 650 mg Albuterol/Ipratropium (Duoneb -) 1 amp NEB Q6H PRN PRN Reason: SHORTNESS OF BREATH Last Admin: 01/01/17 20:25 Dose: 1 amp Amiodarone HCl (Cordarone -) 200 mg PO BID [facility] Diphenhydramine HCl (Benadryl -) 25 mg PO HS [facility] Last Admin: 01/06/17 21:53 Dose: 25 mg Furosemide (Lasix Injection -) 40 mg IVPUSH DAILY [facility] Last Admin: 01/07/17 14:22 Dose: 40 mg Meropenem 1 gm/ Dextrose 100 mls @ 100 mls/hr IVPB Q8H-IV [facility] PRN Reason: Protocol Last Admin: 01/07/17 17:04 Dose: 100 mls/hr Insulin Aspart (Novolog Vial Sliding Scale -) 1 vial SQ ACHS [facility] PRN Reason: Protocol Last Admin: 01/07/17 17:04 Dose: Not Given Lactobacillus Acidophilus (Bacid -) 1 tab PO DAILY [facility] Last Admin: 01/07/17 08:59 Dose: 1 tab Methadone HCl 40 mg/ Methadone (HCl 30 mg) 70 mg PO DAILY@0600 [facility] Last Admin: 01/07/17 06:02 Dose: 70 mg Metoprolol Tartrate (Lopressor -) 25 mg PO TID [facility] Last Admin: 01/07/17 14:11 Dose: 25 mg Nystatin (Nystatin Oral Suspension -) 500,000 units PO Q6HPO [facility] Last Admin: 01/07/17 17:04 Dose: Not Given Pantoprazole Sodium (Protonix -) 40 mg PO DAILY [facility] Last Admin: 01/07/17 08:59 Dose: 40 mg Rivaroxaban (Xarelto -) 20 mg PO DAILY [facility] Last Admin: 01/07/17 08:59 Dose: 20 mg Silver Sulfadiazine (Silvadene -) 1 applic TP DAILY [facility] Last Admin: 01/07/17 10:35 Dose: 1 applic Sodium Chloride ([place] Nasal [place] -) 2 spray NS BID PRN PRN Reason: NASAL CONGESTION Last Admin: 01/02/17 18:12 Dose: 2 spray - Objective Vital Signs: Vital Signs Temperature 98.2 F 01/07/17 14:35 Pulse Rate 61 01/07/17 09:00 Respiratory Rate 18 01/07/17 14:00 Blood Pressure 120/75 01/07/17 14:00 O2 Sat by Pulse Oximetry (%) 95 01/07/17 09:00 Constitutional: Yes: No Distress, Calm Cardiovascular: Yes: Pulse Irregular Respiratory: Yes: Regular, CTA Bilaterally Gastrointestinal: Yes: Normal Bowel Sounds, Soft Musculoskeletal: Yes: Other Extremities: Yes: Other Wound/Incision: Yes: Other Neurological: Yes: Alert, Oriented Labs: CBC, BMP 01/07/17 05:35 01/06/17 05:47 INR, PTT INR 1.59 (0.82-1.09) H D 01/04/17 05:30 Assessment/Plan - Problems (1) Atrial fibrillation with rapid ventricular response Code(s): I48.91 - UNSPECIFIED ATRIAL FIBRILLATION (2) Cellulitis Code(s): L03.90 - CELLULITIS, UNSPECIFIED Qualifiers: Site of cellulitis of extremity: lower extremity Laterality: unspecified laterality (3) Methadone dependence Code(s): F11.20 - OPIOID DEPENDENCE, UNCOMPLICATED (4) PAD (peripheral artery disease) Code(s): I73.9 - PERIPHERAL VASCULAR DISEASE, UNSPECIFIED (5) Substance abuse Code(s): F19.10 - OTHER PSYCHOACTIVE SUBSTANCE ABUSE, UNCOMPLICATED (6) Diastolic dysfunction Code(s): I51.9 - HEART DISEASE, UNSPECIFIED wound infection plan will check vanco level tomorrow will watch wbc rest continue current mgmt continue wound care
[2017-01-07] MEDS: diphenhydrAMINE HCL 25 MG CAPSULE (FP) PO SCH (22:29)
[2017-01-08] MEDS ORDERED: PT OWN MED DRAWER 7, Y5N ONE ×3 (02:17→13:18)
[2017-01-08] MEDS: MEROPENEM 1 GM in DEXTROSE 5%-WATER - 100 ML IVPB SCH ×2 (03:37→09:36)
[2017-01-08] MEDS ORDERED: METHADONE HCL 40 MG DISPERSABLE TABLET ONE (06:10)
[2017-01-08] MEDS ORDERED: METHADONE HCL 10 MG TABLET ONE (06:10)
[2017-01-08] MEDS: INSULIN SLIDING SCALE (NOVOLOG) 1 VIAL SQ SCH ×2 (06:12→12:08)
[2017-01-08] MEDS: METHADONE 40 MG, METHADONE 30 MG PO SCH (06:16)
[2017-01-08] MEDS: NYSTATIN 500,000 UNITS/5 ML SUSPENSION PO SCH ×4 (06:17→23:54)
[2017-01-08] MEDS: METOPROLOL TARTRATE 25 MG TABLET (FP) PO SCH ×3 (06:18→22:35)
[2017-01-08 08:11] LABS: BASOPHIL 0.5 % (0-2.0); EOSINOPHIL 0.8 % (0-4.5); MCH 29.2 pg (25.7-33.7); MCHC 32.2 g/dl (32.0-35.9); MEAN CELL VOLUME 90.7 fl (80-96); MEAN PLT VOLUME 8.8 fl (7.5-11.1); NEUTROPHILS 86.5 % (42.8-82.8); PLATELET COUNT 270 K/MM3 (134-434); RDW 15.5 % (11.9-15.9); WHITE BLOOD COUNT 24.1 K/mm3 (4.0-10.0)
[2017-01-08 08:55] LABS: CALCIUM 8.2 mg/dL (8.5-10.1); COCKROFT - GAULT 86.42; CREATININE 1.2 mg/dL (0.7-1.3); MAGNESIUM 1.8 mg/dL (1.8-2.4); PHOSPHOROUS 3.6 mg/dL (2.5-4.9)
[2017-01-08] MEDS: FUROSEMIDE 40 MG/4 ML INJECTABLE VIAL IVPUSH SCH (09:36)
[2017-01-08] MEDS: AMIODARONE HCL 200 MG TABLET (FP) PO SCH ×2 (09:36→22:34)
[2017-01-08] MEDS: LACTOBACILLUS ACIDOPHILUS 1 EACH TAB (FP) PO SCH (09:36)
[2017-01-08] MEDS: PANTOPRAZOLE 40 MG TABLET (FP) PO SCH (09:36)
[2017-01-08] MEDS: RIVAROXABAN 20 MG TABLET PO SCH (09:36)
[2017-01-08] MEDS: SILVER SULFADIAZINE 1% TOP CREAM 50 GM JAR TP SCH (09:39)
--- NOTE | 2017-01-08 11:07 | PN ---
Progress Note, Physician History of Present Illness: patient stable no issues patient having loose bm - Current Medication List Current Medications: Active Medications Acetaminophen (Tylenol Oral Solution -) 650 mg PO Q6H PRN PRN Reason: FEVER OR PAIN Last Admin: 01/02/17 18:12 Dose: 650 mg Albuterol/Ipratropium (Duoneb -) 1 amp NEB Q6H PRN PRN Reason: SHORTNESS OF BREATH Last Admin: 01/01/17 20:25 Dose: 1 amp Amiodarone HCl (Cordarone -) 200 mg PO BID [facility] Last Admin: 01/08/17 09:36 Dose: 200 mg Diphenhydramine HCl (Benadryl -) 25 mg PO HS [facility] Last Admin: 01/07/17 22:29 Dose: 25 mg Meropenem 1 gm/ Dextrose 100 mls @ 100 mls/hr IVPB Q8H-IV [facility] PRN Reason: Protocol Last Admin: 01/08/17 09:36 Dose: 100 mls/hr Insulin Aspart (Novolog Vial Sliding Scale -) 1 vial SQ ACHS [facility] PRN Reason: Protocol Last Admin: 01/08/17 06:12 Dose: Not Given Lactobacillus Acidophilus (Bacid -) 1 tab PO DAILY [facility] Last Admin: 01/08/17 09:36 Dose: 1 tab Methadone HCl 40 mg/ Methadone (HCl 30 mg) 70 mg PO DAILY@0600 [facility] Last Admin: 01/08/17 06:16 Dose: 70 mg Metoprolol Tartrate (Lopressor -) 25 mg PO TID [facility] Last Admin: 01/08/17 06:18 Dose: 25 mg Nystatin (Nystatin Oral Suspension -) 500,000 units PO Q6HPO [facility] Last Admin: 01/08/17 06:17 Dose: 500,000 units Pantoprazole Sodium (Protonix -) 40 mg PO DAILY [facility] Last Admin: 01/08/17 09:36 Dose: 40 mg Rivaroxaban (Xarelto -) 20 mg PO DAILY [facility] Last Admin: 01/08/17 09:36 Dose: 20 mg Silver Sulfadiazine (Silvadene -) 1 applic TP DAILY [facility] Last Admin: 01/08/17 09:39 Dose: 1 applic Sodium Chloride ([place] Nasal [place] -) 2 spray NS BID PRN PRN Reason: NASAL CONGESTION Last Admin: 05/06/17 18:12 Dose: 2 spray Vancomycin HCl (Vancomycin Oral Solution) 125 mg PO Q6HPO [facility] - Objective Vital Signs: Vital Signs Temperature 98.4 F 01/08/17 10:00 Pulse Rate 57 L 01/08/17 10:00 Respiratory Rate 18 01/08/17 10:00 Blood Pressure 108/50 01/08/17 10:00 O2 Sat by Pulse Oximetry (%) 95 01/08/17 10:00 Constitutional: Yes: No Distress, Calm Cardiovascular: Yes: Regular Rate and Rhythm Respiratory: Yes: Regular, CTA Bilaterally Gastrointestinal: Yes: Normal Bowel Sounds, Soft Musculoskeletal: Yes: Other Extremities: Yes: Other Wound/Incision: Yes: Other (healing well) Neurological: Yes: Alert, Oriented Psychiatric: Yes: Alert, Oriented Labs: CBC, BMP 01/08/17 06:20 01/08/17 06:20 INR, PTT INR 1.59 (0.82-1.09) H D 01/04/17 05:30 Assessment/Plan - Problems (1) Atrial fibrillation with rapid ventricular response Code(s): I48.91 - UNSPECIFIED ATRIAL FIBRILLATION (2) Cellulitis Code(s): L03.90 - CELLULITIS, UNSPECIFIED Qualifiers: Site of cellulitis of extremity: lower extremity Laterality: unspecified laterality (3) Methadone dependence Code(s): F11.20 - OPIOID DEPENDENCE, UNCOMPLICATED (4) PAD (peripheral artery disease) Code(s): I73.9 - PERIPHERAL VASCULAR DISEASE, UNSPECIFIED (5) Substance abuse Code(s): F19.10 - OTHER PSYCHOACTIVE SUBSTANCE ABUSE, UNCOMPLICATED (6) Diastolic dysfunction Code(s): I51.9 - HEART DISEASE, UNSPECIFIED wound infection plan will check vanco level tomorrow will watch wbc stool for cdiff rest ct current mgmt
--- NOTE | 2017-01-08 11:53 | PN ---
Progress Note, Physician History of Present Illness: Remains in sinus rhythm on amio, denies chest pain or dyspnea. - Current Medication List Current Medications: Active Medications Acetaminophen (Tylenol Oral Solution -) 650 mg PO Q6H PRN PRN Reason: FEVER OR PAIN Last Admin: 01/02/17 18:12 Dose: 650 mg Albuterol/Ipratropium (Duoneb -) 1 amp NEB Q6H PRN PRN Reason: SHORTNESS OF BREATH Last Admin: 01/01/17 20:25 Dose: 1 amp Amiodarone HCl (Cordarone -) 200 mg PO BID [facility] Last Admin: 01/08/17 09:36 Dose: 200 mg Diphenhydramine HCl (Benadryl -) 25 mg PO HS [facility] Last Admin: 01/07/17 22:29 Dose: 25 mg Meropenem 1 gm/ Dextrose 100 mls @ 100 mls/hr IVPB Q8H-IV [facility] PRN Reason: Protocol Last Admin: 01/08/17 09:36 Dose: 100 mls/hr Insulin Aspart (Novolog Vial Sliding Scale -) 1 vial SQ ACHS [facility] PRN Reason: Protocol Last Admin: 01/08/17 06:12 Dose: Not Given Lactobacillus Acidophilus (Bacid -) 1 tab PO DAILY [facility] Last Admin: 01/08/17 09:36 Dose: 1 tab Methadone HCl 40 mg/ Methadone (HCl 30 mg) 70 mg PO DAILY@0600 [facility] Last Admin: 01/08/17 06:16 Dose: 70 mg Metoprolol Tartrate (Lopressor -) 25 mg PO TID [facility] Last Admin: 01/08/17 06:18 Dose: 25 mg Nystatin (Nystatin Oral Suspension -) 500,000 units PO Q6HPO [facility] Last Admin: 01/08/17 06:17 Dose: 500,000 units Pantoprazole Sodium (Protonix -) 40 mg PO DAILY [facility] Last Admin: 01/08/17 09:36 Dose: 40 mg Rivaroxaban (Xarelto -) 20 mg PO DAILY [facility] Last Admin: 01/08/17 09:36 Dose: 20 mg Silver Sulfadiazine (Silvadene -) 1 applic TP DAILY [facility] Last Admin: 01/08/17 09:39 Dose: 1 applic Sodium Chloride ([place] Nasal [place] -) 2 spray NS BID PRN PRN Reason: NASAL CONGESTION Last Admin: 01/02/17 18:12 Dose: 2 spray Vancomycin HCl (Vancomycin Oral Solution) 125 mg PO Q6HPO [facility] - Objective Vital Signs: Vital Signs Temperature 98.4 F 01/08/17 10:00 Pulse Rate 57 L 01/08/17 10:00 Respiratory Rate 18 01/08/17 10:00 Blood Pressure 108/50 01/08/17 10:00 O2 Sat by Pulse Oximetry (%) 95 01/08/17 10:00 Constitutional: Yes: No Distress, Calm Neck: Yes: Supple Cardiovascular: Yes: Regular Rate and Rhythm Respiratory: Yes: Regular, Diminished Gastrointestinal: Yes: Normal Bowel Sounds, Soft Edema: Yes Edema: LLE: Trace, RLE: Trace Labs: CBC, BMP 01/08/17 06:20 01/08/17 06:20 INR, PTT INR 1.59 (0.82-1.09) H D 01/04/17 05:30 Problem List - Problems (1) Cellulitis Code(s): L03.90 - CELLULITIS, UNSPECIFIED Qualifiers: Site of cellulitis of extremity: lower extremity Laterality: unspecified laterality (2) Methadone dependence Code(s): F11.20 - OPIOID DEPENDENCE, UNCOMPLICATED (3) PAD (peripheral artery disease) Code(s): I73.9 - PERIPHERAL VASCULAR DISEASE, UNSPECIFIED (4) Substance abuse Code(s): F19.10 - OTHER PSYCHOACTIVE SUBSTANCE ABUSE, UNCOMPLICATED (5) Diastolic dysfunction Code(s): I51.9 - HEART DISEASE, UNSPECIFIED (6) S/P aorto-bifemoral bypass surgery Code(s): Z95.828 - PRESENCE OF OTHER VASCULAR IMPLANTS AND GRAFTS (7) Paroxysmal atrial fibrillation Code(s): I48.0 - PAROXYSMAL ATRIAL FIBRILLATION Assessment/Plan 1. Paroxysmal atrial fibrillation/atrial flutter now in sinus rhythm [id number] score of 2, on NOAC's 2. CAD angina pectoris 3. LV diastolic dysfunction with chronic class 0-I NYHA classification LV failure, compensated 4. PAD with distal aortic occlusion and common and external iliac artery occlusion s/p Aorto-bifemoral Bypass / 5. Bilateral lower extremity ulcers/cellulitis, resolving 6. Non-compliance history 7. COPD, smoker PLAN: 1. Continue Xarelto 20 qPM 2. Continue Lopressor 25 tid with uptitrtion as hemodynamics permitting 3. Diuretics d/jonathan. Replete K 4. Continue Amiodarone 200 bid 5. Complete antibiotic course per the primary team 6. OOB to chair, PT and encourage mobilization
[2017-01-08] MEDS ORDERED: POTASSIUM CHLORIDE TABS 20 MEQ TABLET.ER (FP) PO ONE (12:30)
--- NOTE | 2017-01-08 13:01 | PN ---
Progress Note, Physician History of Present Illness: PULMONARY ALERT,NAD,OOB-CHAIR,-SOB,-CP,-COUGH - Current Medication List Current Medications: Active Medications Acetaminophen (Tylenol Oral Solution -) 650 mg PO Q6H PRN PRN Reason: FEVER OR PAIN Last Admin: 01/02/17 18:12 Dose: 650 mg Albuterol/Ipratropium (Duoneb -) 1 amp NEB Q6H PRN PRN Reason: SHORTNESS OF BREATH Last Admin: 01/01/17 20:25 Dose: 1 amp Amiodarone HCl (Cordarone -) 200 mg PO BID [facility] Last Admin: 01/08/17 09:36 Dose: 200 mg Diphenhydramine HCl (Benadryl -) 25 mg PO HS [facility] Last Admin: 01/07/17 22:29 Dose: 25 mg Meropenem 1 gm/ Dextrose 100 mls @ 100 mls/hr IVPB Q8H-IV DOMINIC PRN Reason: Protocol Last Admin: 01/08/17 09:36 Dose: 100 mls/hr Insulin Aspart (Novolog Vial Sliding Scale -) 1 vial SQ ACHS DOMINIC PRN Reason: Protocol Last Admin: 01/08/17 12:08 Dose: Not Given Lactobacillus Acidophilus (Bacid -) 1 tab PO DAILY [facility] Last Admin: 01/08/17 09:36 Dose: 1 tab Methadone HCl 40 mg/ Methadone (HCl 30 mg) 70 mg PO DAILY@0600 [facility] Last Admin: 01/08/17 06:16 Dose: 70 mg Metoprolol Tartrate (Lopressor -) 25 mg PO TID [facility] Last Admin: 01/08/17 06:18 Dose: 25 mg Nystatin (Nystatin Oral Suspension -) 500,000 units PO Q6HPO [facility] Last Admin: 01/08/17 12:54 Dose: 500,000 units Pantoprazole Sodium (Protonix -) 40 mg PO DAILY [facility] Last Admin: 01/08/17 09:36 Dose: 40 mg Rivaroxaban (Xarelto -) 20 mg PO DAILY [facility] Last Admin: 01/08/17 09:36 Dose: 20 mg Silver Sulfadiazine (Silvadene -) 1 applic TP DAILY [facility] Last Admin: 01/08/17 09:39 Dose: 1 applic Sodium Chloride ([place] Nasal [place] -) 2 spray NS BID PRN PRN Reason: NASAL CONGESTION Last Admin: 01/02/17 18:12 Dose: 2 spray Vancomycin HCl (Vancomycin Oral Solution) 125 mg PO Q6HPO DOMINIC - Objective Vital Signs: Vital Signs Temperature 98.4 F 01/08/17 10:00 Pulse Rate 57 L 01/08/17 10:00 Respiratory Rate 18 01/08/17 10:00 Blood Pressure 108/50 01/08/17 10:00 O2 Sat by Pulse Oximetry (%) 95 01/08/17 10:00 Constitutional: Yes: Well Nourished, Calm Eyes: Yes: WNL HENT: Yes: WNL Neck: Yes: WNL Cardiovascular: Yes: Pulse Irregular, S1, S2 Respiratory: Yes: Diminished Gastrointestinal: Yes: Normal Bowel Sounds, Soft Extremities: Yes: WNL, Other (LLE WRAPPED) Edema: Yes Labs: CBC, BMP 01/08/17 06:20 01/08/17 06:20 INR, PTT INR 1.59 (0.82-1.09) H D 01/04/17 05:30 Problem List - Problems (1) Atrial fibrillation with rapid ventricular response Code(s): I48.91 - UNSPECIFIED ATRIAL FIBRILLATION (2) Cellulitis Code(s): L03.90 - CELLULITIS, UNSPECIFIED Qualifiers: Site of cellulitis of extremity: lower extremity Laterality: unspecified laterality (3) Diastolic dysfunction Code(s): I51.9 - HEART DISEASE, UNSPECIFIED (4) Paroxysmal atrial fibrillation Code(s): I48.0 - PAROXYSMAL ATRIAL FIBRILLATION (5) S/P aorto-bifemoral bypass surgery Code(s): Z95.828 - PRESENCE OF OTHER VASCULAR IMPLANTS AND GRAFTS (6) COPD (chronic obstructive pulmonary disease) Code(s): J44.9 - CHRONIC OBSTRUCTIVE PULMONARY DISEASE, UNSPECIFIED Assessment/Plan A/P s/p Aorto-bifemoral Bypass /3 Paroxysmal Atrial Fibrillation with RVR PAD LE Ulcers/Cellulitis LV Diastolic Dysfunction COPD Smoker - anticoagulation - continue antibiotics - pain control - incentive spirometry - inhaled bronchodilators - O2 to keep SpO2 >90% - OOB to chair DR PARSONS
[2017-01-08] MEDS: VANCOMYCIN 250 MG/5 ML ORAL SOLUTION PO SCH ×3 (13:52→23:53)
--- NOTE | 2017-01-08 14:31 | PN ---
Physical Exam: SUBJECTIVE: Patient seen and examined. He is tired of being at the hospital. His diarrhea is bothering him, this morning was the worse to date OBJECTIVE: Vital Signs Period Temp Pulse Resp BP Sys/Chatterjee Pulse Ox Last 24 Hr 97.9 F-99.0 F 54-74 18-20 91-124/50-83 94-95 PE Neuro: alert, awake, cn 2-12 intact Pulm: basilar crackles CV: s1 s2 regular rhythm, rate Abd: incision from substernal to lower abd with ana CDI, no erythema, no tenderness or clicking Ext: b/l lower ext wounds closed, dried lesions RLE, +2 edema Skin: b/l groin incision CDI Laboratory Results - last 24 hr 01/08/17 01/08/17 01/08/17 06:20 06:20 10:15 WBC 24.1 H RBC 3.90 L Hgb 11.4 L Hct 35.4 MCV 90.7 MCHC 32.2 RDW 15.5 Plt Count 270 MPV 8.8 Neutrophils % 86.5 H Lymphocytes % 4.7 L Monocytes % 7.5 Eosinophils % 0.8 Basophils % 0.5 Sodium 141 Potassium 3.4 L Chloride 96 L Carbon Dioxide 31 Anion Gap 14 BUN 20 H Creatinine 1.2 POC Glucometer Random Glucose 81 Calcium 8.2 L Phosphorus 3.6 Magnesium 1.8 Random Vancomycin 9.592 Active Medications Generic Name Dose Route Start Last Admin Trade Name Freq PRN Reason Stop Dose Admin Acetaminophen 650 mg 01/02/17 18:04 01/02/17 18:12 Tylenol Oral Solution - PO 650 mg Q6H PRN Administration FEVER OR PAIN Albuterol/Ipratropium 1 amp 12/31/16 13:34 01/01/17 20:25 Duoneb - NEB 1 amp Q6H PRN Administration SHORTNESS OF BREATH Amiodarone HCl 200 mg 01/07/17 22:00 01/08/17 09:36 Cordarone - PO 200 mg BID DOMINIC Administration Diphenhydramine HCl 25 mg 12/30/16 22:00 01/07/17 22:29 Benadryl - PO 25 mg HS DOMINIC Administration Meropenem 1 gm/ Dextrose 100 mls @ 100 mls/hr 01/07/17 10:00 01/08/17 09:36 IVPB 100 mls/hr Q8H-IV DOMINIC Administration Protocol Insulin Aspart 1 vial 12/30/16 22:00 01/08/17 12:08 Novolog Vial Sliding Scale - SQ Not Given ACHS DOMINIC Protocol Lactobacillus Acidophilus 1 tab 01/06/17 15:30 01/08/17 09:36 Bacid - PO 1 tab DAILY DOMINIC Administration Methadone HCl 40 mg/ Methadone 70 mg 12/31/16 06:00 01/08/17 06:16 HCl 30 mg PO 70 mg DAILY@0600 DOMINIC Administration Metoprolol Tartrate 25 mg 01/05/17 14:00 01/08/17 13:44 Lopressor - PO 25 mg TID DOMINIC Administration Nystatin 500,000 units 12/31/16 00:00 01/08/17 12:54 Nystatin Oral Suspension - PO 500,000 units Q6HPO DOMINIC Administration Pantoprazole Sodium 40 mg 01/03/17 10:00 01/08/17 09:36 Protonix - PO 40 mg DAILY DOMINIC Administration Rivaroxaban 20 mg 12/31/16 10:00 01/08/17 09:36 Xarelto - PO 20 mg DAILY DOMINIC Administration Silver Sulfadiazine 1 applic 12/31/16 10:00 01/08/17 09:39 Silvadene - TP 1 applic DAILY DOMINIC Administration Sodium Chloride 2 spray 01/01/17 17:07 01/02/17 18:12 [place] Nasal [place] - NS 2 spray BID PRN Administration NASAL CONGESTION Vancomycin HCl 125 mg 01/08/17 12:00 01/08/17 13:52 Vancomycin Oral Solution PO 125 mg Q6HPO DOMINIC Administration Microbiology 01/08/17 10:50 Clostridium difficile Antigen (RUBÉN) - Final Stool Clostridium difficile Toxin Assay - Final 01/04/17 21:48 Salmonella/Shigella Culture - Final Stool NO GROWTH OF SALMONELLA OR SHIGELLA SPECIES OBTAINED Campylobacter Culture - Final NO GROWTH OF CAMPYLOBACTER SPECIES OBTAINED Yersinia Culture - Final NO GROWTH OF YERSINIA SPECIES OBTAINED Vibrio Culture - Final NO GROWTH OF VIBRIO SPECIES OBTAINED Escherichia coli 0157 Culture - Final NO GROWTH OF E COLI 0157 OBTAINED Imaging: - Stress test: small size, mild intensity reversible defect of inferior wall from base to mid consistent with mild ischemia, LVEF 71% - ECHO 12/23 with normal LV size and function. RV normal size. Mod MR, mild TR Assessment: 61 year old male with PMHx of newly diagnosed A.fib (on Xarelto), CHF, HTN, PAD R>L and venous ulcerations to b/l lower ext, opioid dependence ( on methadone for 5 years for heroin) admitted with bilateral wound cellulitis with weeping and A fib with RVR, s/p aorto-bifemoral 12/30/16. Plan: 1. Positive C diff - Start PO Vanco 125mg q6 - Start PO Flagyl 500 TID 2. Leukocytosis - Possible abdominal abscess, however too soon and no abd signs - If no change to wbc, will get CTAP - Subtherapeutic vanco level - Start IV vanco 1250 3. 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 Afib with RVR - In sinus - Decrease Amiodarone 200mg BID - Lopressor 25mg TID - Xarelto 20mg 5. Diastolic heart failure - Cozaar 25 qday - Stop lasix for now, concern for intravascular dehydration 6. Bilateral venous stasis wounds - Daily Silvadene 7. DM II, newly diagnosed - Levemir 5 units HS - Pt has been refusing insulin, sugars controlled, will dc - Hgba1c 8.6 8. Polysubstance abuse - Methadone 70mg daily 9. PPX DVT: On Xarelto 20mg daily GI: Protonix 40mg daily Daily PT Problem List - Problems (1) Atrial fibrillation with rapid ventricular response Code(s): I48.91 - UNSPECIFIED ATRIAL FIBRILLATION (2) Cellulitis Code(s): L03.90 - CELLULITIS, UNSPECIFIED Qualifiers: Site of cellulitis of extremity: lower extremity Laterality: unspecified laterality (3) Skin breakdown Code(s): L90.9 - ATROPHIC DISORDER OF SKIN, UNSPECIFIED (4) CHF (congestive heart failure) Code(s): I50.9 - HEART FAILURE, UNSPECIFIED Qualifiers: Congestive heart failure type: diastolic Congestive heart failure chronicity: acute on chronic Qualified Code(s): I50.33 - Acute on chronic diastolic (congestive) heart failure (5) PAD (peripheral artery disease) Code(s): I73.9 - PERIPHERAL VASCULAR DISEASE, UNSPECIFIED (6) Methadone dependence Code(s): F11.20 - OPIOID DEPENDENCE, UNCOMPLICATED (7) Substance abuse Code(s): F19.10 - OTHER PSYCHOACTIVE SUBSTANCE ABUSE, UNCOMPLICATED Visit type - Emergency Visit Emergency Visit: Yes ED Registration Date: 12/22/16 Care time: The patient presented to the Emergency Department on the above date and was hospitalized for further evaluation of their emergent condition. - New Patient This patient is new to me today: No - Critical Care Critical Care patient: No
[2017-01-08] MEDS ORDERED: METRONIDAZOLE 500 MG PREMIXED 100 ML IVPB SCH (14:45)
[2017-01-08] MEDS: metroNIDAZOLE 250 MG TABLET PO SCH ×2 (16:13→22:34)
[2017-01-08] MEDS: VANCOMYCIN 1,250 MG in DEXTROSE 5%-WATER - 250 ML IVPB SCH (16:50)
[2017-01-08] MEDS: INSULIN DETEMIR 100 UNITS/ML MDV SQ SCH (22:35)
[2017-01-08] MEDS: diphenhydrAMINE HCL 25 MG CAPSULE (FP) PO SCH (22:35)
[2017-01-09] MEDS ORDERED: METHADONE HCL 40 MG DISPERSABLE TABLET ONE (06:04)
[2017-01-09] MEDS ORDERED: METHADONE HCL 10 MG TABLET ONE (06:05)
[2017-01-09] MEDS: metroNIDAZOLE 250 MG TABLET PO SCH ×3 (06:09→21:12)
[2017-01-09] MEDS: VANCOMYCIN 250 MG/5 ML ORAL SOLUTION PO SCH ×4 (06:10→23:27)
[2017-01-09] MEDS: METOPROLOL TARTRATE 25 MG TABLET (FP) PO SCH ×3 (06:10→22:07)
[2017-01-09] MEDS: METHADONE 40 MG, METHADONE 30 MG PO SCH (06:10)
[2017-01-09] MEDS: NYSTATIN 500,000 UNITS/5 ML SUSPENSION PO SCH (06:10)
[2017-01-09 07:22] LABS: BASOPHIL 0.1 % (0-2.0); EOSINOPHIL 1.7 % (0-4.5); MCH 29.6 pg (25.7-33.7); MCHC 32.6 g/dl (32.0-35.9); MEAN CELL VOLUME 90.8 fl (80-96); MEAN PLT VOLUME 9.7 fl (7.5-11.1); NEUTROPHILS 83.9 % (42.8-82.8); PLATELET COUNT 224 K/MM3 (134-434); WHITE BLOOD COUNT 21.6 K/mm3 (4.0-10.0)
[2017-01-09 08:00] LABS: CALCIUM 8.1 mg/dL (8.5-10.1); COCKROFT - GAULT 79.77; CREATININE 1.3 mg/dL (0.7-1.3)
[2017-01-09] MEDS ORDERED: PT OWN MED DRAWER 7, Y5N ONE ×2 (08:55→16:15)
[2017-01-09] MEDS: SILVER SULFADIAZINE 1% TOP CREAM 50 GM JAR TP SCH (09:02)
[2017-01-09] MEDS: RIVAROXABAN 20 MG TABLET PO SCH (09:02)
[2017-01-09] MEDS: AMIODARONE HCL 200 MG TABLET (FP) PO SCH ×2 (09:02→21:12)
[2017-01-09] MEDS: PANTOPRAZOLE 40 MG TABLET (FP) PO SCH (09:02)
[2017-01-09] MEDS: LACTOBACILLUS ACIDOPHILUS 1 EACH TAB (FP) PO SCH (09:02)
--- NOTE | 2017-01-09 12:05 | PN ---
Progress Note (short form) - Note Progress Note: PULMONARY Doing well, denies shortness of breath, chest pain or palpitations. Saturating 91% on room air. Last Vital Signs Temp Pulse Resp BP Pulse Ox 98.1 F 60 18 112/48 91 L 01/09/17 10:00 01/09/17 10:34 01/09/17 10:00 01/09/17 10:00 01/09/17 10:34 Gen: NAD at rest Heart: RRR Lung: distant breath sounds Abd: soft, nontender Ext: + less edema CBC, BMP 01/09/17 06:00 01/09/17 06:00 Active Medications Acetaminophen (Tylenol Oral Solution -) 650 mg PO Q6H PRN PRN Reason: FEVER OR PAIN Last Admin: 01/02/17 18:12 Dose: 650 mg Albuterol/Ipratropium (Duoneb -) 1 amp NEB Q6H PRN PRN Reason: SHORTNESS OF BREATH Last Admin: 01/01/17 20:25 Dose: 1 amp Amiodarone HCl (Cordarone -) 200 mg PO BID [facility] Last Admin: 01/09/17 09:02 Dose: 200 mg Diphenhydramine HCl (Benadryl -) 25 mg PO [facility] Last Admin: 01/08/17 22:35 Dose: 25 mg Vancomycin HCl 1,250 mg/ (Dextrose) 250 mls @ 166.667 mls/hr IVPB DAILY@1600 DOMINIC PRN Reason: Protocol Last Admin: 01/08/17 16:50 Dose: 166.667 mls/hr Insulin Detemir (Levemir Vial) 5 units SQ [facility] Last Admin: 01/08/17 22:35 Dose: 5 units Lactobacillus Acidophilus (Bacid -) 1 tab PO DAILY [facility] Last Admin: 01/09/17 09:02 Dose: 1 tab Methadone HCl 40 mg/ Methadone (HCl 30 mg) 70 mg PO DAILY@0600 [facility] Last Admin: 01/09/17 06:10 Dose: 70 mg Metoprolol Tartrate (Lopressor -) 25 mg PO TID [facility] Last Admin: 01/09/17 06:10 Dose: Not Given Metronidazole (Flagyl -) 500 mg PO TID [facility] Last Admin: 01/09/17 06:09 Dose: 500 mg Pantoprazole Sodium (Protonix -) 40 mg PO DAILY [facility] Last Admin: 01/09/17 09:02 Dose: 40 mg Rivaroxaban (Xarelto -) 20 mg PO DAILY [facility] Last Admin: 01/09/17 09:02 Dose: 20 mg Silver Sulfadiazine (Silvadene -) 1 applic TP DAILY [facility] Last Admin: 01/09/17 09:02 Dose: 1 applic Sodium Chloride ([place] Nasal [place] -) 2 spray NS BID PRN PRN Reason: NASAL CONGESTION Last Admin: 01/02/17 18:12 Dose: 2 spray Vancomycin HCl (Vancomycin Oral Solution) 125 mg PO Q6HPO [facility] Last Admin: 01/09/17 06:10 Dose: 125 mg A/P s/p Aorto-bifemoral Bypass 12/30 Paroxysmal Atrial Fibrillation with RVR PAD LE Ulcers/Cellulitis LV Diastolic Dysfunction COPD Smoker - metoprolol, amiodarone for rate control - continue anticoagulation - continue antibiotics - pain control - incentive spirometry - inhaled bronchodilators - O2 to keep SpO2 >90% - OOB to chair
--- NOTE | 2017-01-09 12:27 | PN ---
Physical Exam: SUBJECTIVE: Patient seen and examined. He is in better spirits today, his diarrhea has improved. OBJECTIVE: Vital Signs Period Temp Pulse Resp BP Sys/Chatterjee Pulse Ox Last 24 Hr 98.1 F-98.9 F 53-75 18-20 93-119/35-64 91-94 PE Neuro: alert, awake, cn 2-12 intact Pulm: diminished bases CV: s1 s2 regular rhythm, rate Abd: incision from substernal to lower abd with ana CDI Ext: b/l lower ext wounds closed, dried lesions RLE, +2 edema Skin: b/l groin incision CDI Laboratory Results - last 24 hr 01/08/17 01/09/17 01/09/17 22:36 06:00 06:00 WBC 21.6 H RBC 3.65 L Hgb 10.8 L Hct 33.1 L MCV 90.8 MCHC 32.6 RDW 16.0 H Plt Count 224 MPV 9.7 D Neutrophils % 83.9 H Lymphocytes % 7.3 L D Monocytes % 7.0 Eosinophils % 1.7 D Basophils % 0.1 Sodium 140 Potassium 3.9 Chloride 98 Carbon Dioxide 30 Anion Gap 12 BUN 21 H Creatinine 1.3 POC Glucometer 125 Random Glucose 70 L Calcium 8.1 L Random Vancomycin 12.229 Active Medications Generic Name Dose Route Start Last Admin Trade Name Pierreq PRN Reason Stop Dose Admin Acetaminophen 650 mg 01/02/17 18:04 01/02/17 18:12 Tylenol Oral Solution - PO 650 mg Q6H PRN Administration FEVER OR PAIN Albuterol/Ipratropium 1 amp 12/31/16 13:34 01/01/17 20:25 Duoneb - NEB 1 amp Q6H PRN Administration SHORTNESS OF BREATH Amiodarone HCl 200 mg 01/07/17 22:00 01/09/17 09:02 Cordarone - PO 200 mg BID DOMINIC Administration Diphenhydramine HCl 25 mg 12/30/16 22:00 01/08/17 22:35 Benadryl - PO 25 mg HS DOMINIC Administration Vancomycin HCl 1,250 mg/ 250 mls @ 166.667 mls/hr 01/08/17 16:00 01/08/17 16:50 Dextrose IVPB 166.667 mls/hr DAILY@1600 DOMINIC Administration Protocol Insulin Detemir 5 units 01/08/17 22:00 01/08/17 22:35 Levemir Vial SQ 5 units HS DOMINIC Administration Lactobacillus Acidophilus 1 tab 01/06/17 15:30 01/09/17 09:02 Bacid - PO 1 tab DAILY DOMINIC Administration Methadone HCl 40 mg/ Methadone 70 mg 12/31/16 06:00 01/09/17 06:10 HCl 30 mg PO 70 mg DAILY@0600 DOMINIC Administration Metoprolol Tartrate 25 mg 01/05/17 14:00 01/09/17 06:10 Lopressor - PO Not Given TID ODMINIC Metronidazole 500 mg 01/08/17 15:00 01/09/17 06:09 Flagyl - PO 500 mg TID DOMINIC Administration Pantoprazole Sodium 40 mg 01/03/17 10:00 01/09/17 09:02 Protonix - PO 40 mg DAILY DOMINIC Administration Rivaroxaban 20 mg 12/31/16 10:00 01/09/17 09:02 Xarelto - PO 20 mg DAILY DOMINIC Administration Silver Sulfadiazine 1 applic 12/31/16 10:00 01/09/17 09:02 Silvadene - TP 1 applic DAILY DOMINIC Administration Sodium Chloride 2 spray 01/01/17 17:07 01/02/17 18:12 [place] Nasal [place] - NS 2 spray BID PRN Administration NASAL CONGESTION Vancomycin HCl 125 mg 01/08/17 12:00 01/09/17 06:10 Vancomycin Oral Solution PO 125 mg Q6HPO DOMINIC Administration Imaging: - Stress test: small size, mild intensity reversible defect of inferior wall from base to mid consistent with mild ischemia, LVEF 71% - ECHO 12/23 with normal LV size and function. RV normal size. Mod MR, mild TR Assessment: 61 year old male with PMHx of newly diagnosed A.fib (on Xarelto), CHF, HTN, PAD R>L and venous ulcerations to b/l lower ext, opioid dependence ( on methadone for 5 years for heroin) admitted with bilateral wound cellulitis with weeping and A fib with RVR, s/p aorto-bifemoral 12/30/16. Plan: 1. Positive C diff - Diarrhea improved - Continue PO Vanco 125mg q6 - Continue PO Flagyl 500 TID - Consider deescalating po vanco, will d/w ID 2. Leukocytosis - Improved today - Continue vanco 1250mg daily - Check vanco level 3. 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 Afib with RVR - In sinus - Amiodarone 200mg BID - Lopressor 25mg TID - Xarelto 20mg 5. Diastolic heart failure - Cozaar 25 qday - Stop lasix for now, concern for intravascular dehydration 6. Bilateral venous stasis wounds - Daily Silvadene 7. DM II, newly diagnosed - Levemir 5 units HS - Pt has been refusing insulin, sugars controlled, will dc - Hgba1c 8.6 8. Polysubstance abuse - Methadone 70mg daily 9. PPX DVT: On Xarelto 20mg daily GI: Protonix 40mg daily Daily PT Problem List - Problems (1) Atrial fibrillation with rapid ventricular response Code(s): I48.91 - UNSPECIFIED ATRIAL FIBRILLATION (2) Cellulitis Code(s): L03.90 - CELLULITIS, UNSPECIFIED Qualifiers: Site of cellulitis of extremity: lower extremity Laterality: unspecified laterality (3) Skin breakdown Code(s): L90.9 - ATROPHIC DISORDER OF SKIN, UNSPECIFIED (4) CHF (congestive heart failure) Code(s): I50.9 - HEART FAILURE, UNSPECIFIED Qualifiers: Congestive heart failure type: diastolic Congestive heart failure chronicity: acute on chronic Qualified Code(s): I50.33 - Acute on chronic diastolic (congestive) heart failure (5) PAD (peripheral artery disease) Code(s): I73.9 - PERIPHERAL VASCULAR DISEASE, UNSPECIFIED (6) Methadone dependence Code(s): F11.20 - OPIOID DEPENDENCE, UNCOMPLICATED (7) Substance abuse Code(s): F19.10 - OTHER PSYCHOACTIVE SUBSTANCE ABUSE, UNCOMPLICATED Visit type - Emergency Visit Emergency Visit: Yes ED Registration Date: 12/22/16 Care time: The patient presented to the Emergency Department on the above date and was hospitalized for further evaluation of their emergent condition. - New Patient This patient is new to me today: No - Critical Care Critical Care patient: No
[2017-01-09] MEDS: VANCOMYCIN 1,250 MG in DEXTROSE 5%-WATER - 250 ML IVPB SCH (16:18)
--- NOTE | 2017-01-09 19:11 | PN ---
Progress Note, Physician History of Present Illness: patient with cdiff positive feeling no new issues dirrhoea less now after treatment started no complaints - Current Medication List Current Medications: Active Medications Acetaminophen (Tylenol Oral Solution -) 650 mg PO Q6H PRN PRN Reason: FEVER OR PAIN Last Admin: 01/02/17 18:12 Dose: 650 mg Albuterol/Ipratropium (Duoneb -) 1 amp NEB Q6H PRN PRN Reason: SHORTNESS OF BREATH Last Admin: 01/01/17 20:25 Dose: 1 amp Amiodarone HCl (Cordarone -) 200 mg PO BID [facility] Last Admin: 01/09/17 09:02 Dose: 200 mg Diphenhydramine HCl (Benadryl -) 25 mg PO HS [facility] Last Admin: 01/08/17 22:35 Dose: 25 mg Vancomycin HCl 1,250 mg/ (Dextrose) 250 mls @ 166.667 mls/hr IVPB DAILY@1600 DOMINIC PRN Reason: Protocol Last Admin: 01/09/17 16:18 Dose: 166.667 mls/hr Insulin Detemir (Levemir Vial) 5 units SQ [facility] Last Admin: 01/08/17 22:35 Dose: 5 units Lactobacillus Acidophilus (Bacid -) 1 tab PO DAILY [facility] Last Admin: 01/09/17 09:02 Dose: 1 tab Methadone HCl 40 mg/ Methadone (HCl 30 mg) 70 mg PO DAILY@0600 [facility] Last Admin: 01/09/17 06:10 Dose: 70 mg Metoprolol Tartrate (Lopressor -) 25 mg PO TID [facility] Last Admin: 01/09/17 13:25 Dose: 25 mg Metronidazole (Flagyl -) 500 mg PO TID [facility] Last Admin: 01/09/17 13:25 Dose: 500 mg Pantoprazole Sodium (Protonix -) 40 mg PO DAILY [facility] Last Admin: 01/09/17 09:02 Dose: 40 mg Rivaroxaban (Xarelto -) 20 mg PO DAILY [facility] Last Admin: 01/09/17 09:02 Dose: 20 mg Silver Sulfadiazine (Silvadene -) 1 applic TP DAILY [facility] Last Admin: 01/09/17 09:02 Dose: 1 applic Sodium Chloride ([place] Nasal [place] -) 2 spray NS BID PRN PRN Reason: NASAL CONGESTION Last Admin: 01/02/17 18:12 Dose: 2 spray Vancomycin HCl (Vancomycin Oral Solution) 125 mg PO Q6HPO [facility] Last Admin: 01/09/17 17:09 Dose: 125 mg - Objective Vital Signs: Vital Signs Temperature 98.4 F 01/09/17 17:35 Pulse Rate 74 01/09/17 17:35 Respiratory Rate 20 01/09/17 17:35 Blood Pressure 98/52 01/09/17 17:35 O2 Sat by Pulse Oximetry (%) 91 L 01/09/17 10:34 Constitutional: Yes: No Distress, Calm Cardiovascular: Yes: S1, S2 Respiratory: Yes: Regular, CTA Bilaterally Gastrointestinal: Yes: Normal Bowel Sounds, Soft Musculoskeletal: Yes: Other Extremities: Yes: Other Wound/Incision: Yes: Other Neurological: Yes: Alert, Oriented Psychiatric: Yes: Alert, Oriented Labs: CBC, BMP 01/09/17 06:00 01/09/17 06:00 INR, PTT INR 1.59 (0.82-1.09) H D 01/04/17 05:30 Assessment/Plan - Problems (1) Atrial fibrillation with rapid ventricular response Code(s): I48.91 - UNSPECIFIED ATRIAL FIBRILLATION (2) Cellulitis Code(s): L03.90 - CELLULITIS, UNSPECIFIED Qualifiers: Site of cellulitis of extremity: lower extremity Laterality: unspecified laterality (3) Methadone dependence Code(s): F11.20 - OPIOID DEPENDENCE, UNCOMPLICATED (4) PAD (peripheral artery disease) Code(s): I73.9 - PERIPHERAL VASCULAR DISEASE, UNSPECIFIED (5) Substance abuse Code(s): F19.10 - OTHER PSYCHOACTIVE SUBSTANCE ABUSE, UNCOMPLICATED (6) Diastolic dysfunction Code(s): I51.9 - HEART DISEASE, UNSPECIFIED cdiff wound infection plan continue vanco orally and iv falgyl rest continue wound care
[2017-01-09] MEDS: INSULIN DETEMIR 100 UNITS/ML MDV SQ SCH (21:12)
[2017-01-09] MEDS: diphenhydrAMINE HCL 25 MG CAPSULE (FP) PO SCH (21:12)
[2017-01-10] MEDS ORDERED: METHADONE HCL 40 MG DISPERSABLE TABLET ONE (05:55)
[2017-01-10] MEDS ORDERED: METHADONE HCL 10 MG TABLET ONE (05:55)
[2017-01-10] MEDS: METOPROLOL TARTRATE 25 MG TABLET (FP) PO SCH (05:58)
[2017-01-10] MEDS: metroNIDAZOLE 250 MG TABLET PO SCH ×3 (06:00→22:15)
[2017-01-10] MEDS: VANCOMYCIN 250 MG/5 ML ORAL SOLUTION PO SCH ×3 (06:00→17:54)
[2017-01-10] MEDS: METHADONE 40 MG, METHADONE 30 MG PO SCH (06:00)
[2017-01-10 07:23] LABS: BASOPHIL 0.8 % (0-2.0); EOSINOPHIL 1.6 % (0-4.5); MCH 29.8 pg (25.7-33.7); MCHC 32.7 g/dl (32.0-35.9); MEAN CELL VOLUME 91.1 fl (80-96); NEUTROPHILS 83.1 % (42.8-82.8); PLATELET COUNT 265 K/MM3 (134-434); RDW 15.9 % (11.9-15.9); WHITE BLOOD COUNT 18.1 K/mm3 (4.0-10.0)
[2017-01-10 07:47] LABS: CALCIUM 7.9 mg/dL (8.5-10.1); COCKROFT - GAULT 86.42; CREATININE 1.2 mg/dL (0.7-1.3)
[2017-01-10] MEDS ORDERED: PT OWN MED DRAWER 7, Y5N ONE (08:40)
[2017-01-10] MEDS: LACTOBACILLUS ACIDOPHILUS 1 EACH TAB (FP) PO SCH (09:06)
[2017-01-10] MEDS: SILVER SULFADIAZINE 1% TOP CREAM 50 GM JAR TP SCH (09:06)
[2017-01-10] MEDS: PANTOPRAZOLE 40 MG TABLET (FP) PO SCH (09:06)
[2017-01-10] MEDS: AMIODARONE HCL 200 MG TABLET (FP) PO SCH (09:06)
--- NOTE | 2017-01-10 11:17 | PN ---
Progress Note, Physician History of Present Illness: Remains in sinus rhythm on amio, denies chest pain or dyspnea. Diarrhea improving on oral vanco and flagyl, denies fevers or abd pain. - Current Medication List Current Medications: Active Medications Acetaminophen (Tylenol Oral Solution -) 650 mg PO Q6H PRN PRN Reason: FEVER OR PAIN Last Admin: 01/02/17 18:12 Dose: 650 mg Albuterol/Ipratropium (Duoneb -) 1 amp NEB Q6H PRN PRN Reason: SHORTNESS OF BREATH Last Admin: 01/01/17 20:25 Dose: 1 amp Amiodarone HCl (Cordarone -) 200 mg PO BID [facility] Last Admin: 01/10/17 09:06 Dose: 200 mg Diphenhydramine HCl (Benadryl -) 25 mg PO HS [facility] Last Admin: 01/09/17 21:12 Dose: 25 mg Vancomycin HCl 1,250 mg/ (Dextrose) 250 mls @ 166.667 mls/hr IVPB DAILY@1600 [facility] PRN Reason: Protocol Last Admin: 01/09/17 16:18 Dose: 166.667 mls/hr Insulin Detemir (Levemir Vial) 5 units SQ [facility] Last Admin: 01/09/17 21:12 Dose: 5 units Lactobacillus Acidophilus (Bacid -) 1 tab PO DAILY [facility] Last Admin: 01/10/17 09:06 Dose: 1 tab Methadone HCl 40 mg/ Methadone (HCl 30 mg) 70 mg PO DAILY@0600 [facility] Last Admin: 01/10/17 06:00 Dose: 70 mg Metoprolol Tartrate (Lopressor -) 25 mg PO TID [facility] Last Admin: 01/10/17 05:58 Dose: Not Given Metronidazole (Flagyl -) 500 mg PO TID [facility] Last Admin: 01/10/17 06:00 Dose: 500 mg Pantoprazole Sodium (Protonix -) 40 mg PO DAILY [facility] Last Admin: 01/10/17 09:06 Dose: 40 mg Rivaroxaban (Xarelto -) 20 mg PO DAILY [facility] Last Admin: 01/09/17 09:02 Dose: 20 mg Silver Sulfadiazine (Silvadene -) 1 applic TP DAILY [facility] Last Admin: 01/10/17 09:06 Dose: 1 applic Sodium Chloride ([place] Nasal [place] -) 2 spray NS BID PRN PRN Reason: NASAL CONGESTION Last Admin: 01/02/17 18:12 Dose: 2 spray Vancomycin HCl (Vancomycin Oral Solution) 125 mg PO Q6HPO [facility] Last Admin: 01/10/17 06:00 Dose: 125 mg - Objective Vital Signs: Vital Signs Temperature 98.5 F 01/10/17 06:00 Pulse Rate 75 01/10/17 10:31 Respiratory Rate 16 01/10/17 06:00 Blood Pressure 116/42 01/10/17 06:00 O2 Sat by Pulse Oximetry (%) 92 L 01/10/17 10:31 Constitutional: Yes: No Distress, Calm Neck: Yes: Supple Cardiovascular: Yes: Regular Rate and Rhythm Respiratory: Yes: Regular, Diminished Gastrointestinal: Yes: Normal Bowel Sounds, Soft Edema: Yes Edema: LLE: Trace, RLE: Trace Labs: CBC, BMP 01/10/17 06:15 01/10/17 06:15 INR, PTT INR 1.59 (0.82-1.09) H D 01/04/17 05:30 Problem List - Problems (1) Methadone dependence Code(s): F11.20 - OPIOID DEPENDENCE, UNCOMPLICATED (2) PAD (peripheral artery disease) Code(s): I73.9 - PERIPHERAL VASCULAR DISEASE, UNSPECIFIED (3) Substance abuse Code(s): F19.10 - OTHER PSYCHOACTIVE SUBSTANCE ABUSE, UNCOMPLICATED (4) Diastolic dysfunction Code(s): I51.9 - HEART DISEASE, UNSPECIFIED (5) S/P aorto-bifemoral bypass surgery Code(s): Z95.828 - PRESENCE OF OTHER VASCULAR IMPLANTS AND GRAFTS (6) Paroxysmal atrial fibrillation Code(s): I48.0 - PAROXYSMAL ATRIAL FIBRILLATION (7) Clostridium difficile diarrhea Code(s): A04.7 - ENTEROCOLITIS DUE TO CLOSTRIDIUM DIFFICILE (8) Leukocytosis Code(s): D72.829 - ELEVATED WHITE BLOOD CELL COUNT, UNSPECIFIED Qualifiers: Leukocytosis type: unspecified Qualified Code(s): D72.829 - Elevated white blood cell count, unspecified Assessment/Plan 1. Paroxysmal atrial fibrillation/atrial flutter now in sinus rhythm [id number] score of 2, on NOAC's 2. CAD angina pectoris 3. LV diastolic dysfunction with chronic class 0-I NYHA classification LV failure, compensated 4. PAD with distal aortic occlusion and common and external iliac artery occlusion s/p Aorto-bifemoral Bypass 12/30 5. Bilateral lower extremity ulcers/cellulitis, resolved 6. Non-compliance history 7. COPD, smoker 8. c. dificile with leukocytosis PLAN: 1. Continue Xarelto 20 qPM 2. Increase Lopressor 50 bid with uptitration as hemodynamics permitting 3. On oral vanco and flagyl course 4. Decrease Amiodarone 200 qd 5. OOB to chair, PT and encourage mobilization
[2017-01-10] MEDS: RIVAROXABAN 20 MG TABLET PO SCH (11:38)
[2017-01-10] MEDS: ACETAMINOPHEN 650 MG/20.3 ML ORAL SOLUTION (CUPS) PO PRN (12:21)
--- NOTE | 2017-01-10 12:48 | PN ---
Physical Exam: SUBJECTIVE: Patient seen and examined. He says diarrhea is still happening, however now down to 1 from 4/day. OBJECTIVE: Vital Signs Period Temp Pulse Resp BP Sys/Chatterjee Pulse Ox Last 24 Hr 98.2 F-99.4 F 57-75 16-20 98-131/42-76 90-92 PE Neuro: alert, awake, cn 2-12 intact Pulm: diminished bases L>R CV: s1 s2 regular rhythm, rate Abd: incision from substernal to lower abd with ana CDI Ext: b/l lower ext wounds closed, dried lesions RLE, +2 edema Skin: b/l groin incision CDI Laboratory Results - last 24 hr 01/09/17 01/10/17 01/10/17 21:07 06:15 06:15 WBC 18.1 H RBC 3.80 L Hgb 11.3 L Hct 34.7 L MCV 91.1 MCHC 32.7 RDW 15.9 Plt Count 265 MPV 9.0 Neutrophils % 83.1 H Lymphocytes % 6.8 L Monocytes % 7.7 Eosinophils % 1.6 Basophils % 0.8 D Sodium 143 Potassium 3.6 Chloride 98 Carbon Dioxide 35 H Anion Gap 10 BUN 19 H Creatinine 1.2 POC Glucometer 132 Random Glucose 80 Calcium 7.9 L Active Medications Generic Name Dose Route Start Last Admin Trade Name Janie PRN Reason Stop Dose Admin Acetaminophen 650 mg 01/02/17 18:04 01/10/17 12:21 Tylenol Oral Solution - PO 650 mg Q6H PRN Administration FEVER OR PAIN Albuterol/Ipratropium 1 amp 12/31/16 13:34 01/01/17 20:25 Duoneb - NEB 1 amp Q6H PRN Administration SHORTNESS OF BREATH Amiodarone HCl 200 mg 01/11/17 10:00 Cordarone - PO DAILY [facility] Diphenhydramine HCl 25 mg 12/30/16 22:00 01/09/17 21:12 Benadryl - PO 25 mg HS [facility] Administration Vancomycin HCl 1,250 mg/ 250 mls @ 166.667 mls/hr 01/08/17 16:00 01/09/17 16:18 Dextrose IVPB 166.667 mls/hr DAILY@1600 [facility] Administration Protocol Insulin Detemir 5 units 01/08/17 22:00 01/09/17 21:12 Levemir Vial SQ 5 units HS [facility] Administration Lactobacillus Acidophilus 1 tab 01/06/17 15:30 01/10/17 09:06 Bacid - PO 1 tab DAILY [facility] Administration Methadone HCl 40 mg/ Methadone 70 mg 12/31/16 06:00 01/10/17 06:00 HCl 30 mg PO 70 mg DAILY@0600 [facility] Administration Metoprolol Tartrate 50 mg 01/10/17 22:00 Lopressor - PO BID [facility] Metronidazole 500 mg 01/08/17 15:00 01/10/17 06:00 Flagyl - PO 500 mg TID [facility] Administration Pantoprazole Sodium 40 mg 01/03/17 10:00 01/10/17 09:06 Protonix - PO 40 mg DAILY [facility] Administration Rivaroxaban 20 mg 12/31/16 10:00 01/10/17 11:38 Xarelto - PO 20 mg DAILY [facility] Administration Silver Sulfadiazine 1 applic 12/31/16 10:00 01/10/17 09:06 Silvadene - TP 1 applic DAILY [facility] Administration Sodium Chloride 2 spray 01/01/17 17:07 01/02/17 18:[address] [place] Nasal [place] - NS 2 spray BID PRN Administration NASAL CONGESTION Vancomycin HCl 125 mg 01/08/17 12:00 01/10/17 12:19 Vancomycin Oral Solution PO 125 mg Q6HPO [facility] Administration Imaging: - Stress test: small size, mild intensity reversible defect of inferior wall from base to mid consistent with mild ischemia, LVEF 71% - ECHO 12/23 with normal LV size and function. RV normal size. Mod MR, mild TR Assessment: 61 year old male with PMHx of newly diagnosed A.fib (on Xarelto), CHF, HTN, PAD R>L and venous ulcerations to b/l lower ext, opioid dependence ( on methadone for 5 years for heroin) admitted with bilateral wound cellulitis with weeping and A fib with RVR, s/p aorto-bifemoral 12/30/16. Plan: 1. Positive C diff - Continue PO Vanco 125mg q6 - Continue PO Flagyl 500 TID 2. Leukocytosis - Improving - Continue vanco 1250mg daily - Check vanco level 3. 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 Afib with RVR - In sinus - Amiodarone 200mg BID - Change lopressor 50mg BID - Xarelto 20mg 5. Diastolic heart failure - Cozaar 25 qday - Stop lasix for now, concern for intravascular dehydration 6. Bilateral venous stasis wounds - Daily Silvadene 7. DM II, newly diagnosed - Levemir 5 units HS - Hgba1c 8.6 8. Polysubstance abuse - Methadone 70mg daily 9. PPX DVT: On Xarelto 20mg daily GI: Protonix 40mg daily Daily PT Problem List - Problems (1) Atrial fibrillation with rapid ventricular response Code(s): I48.91 - UNSPECIFIED ATRIAL FIBRILLATION (2) Cellulitis Code(s): L03.90 - CELLULITIS, UNSPECIFIED Qualifiers: Site of cellulitis of extremity: lower extremity Laterality: unspecified laterality (3) Skin breakdown Code(s): L90.9 - ATROPHIC DISORDER OF SKIN, UNSPECIFIED (4) CHF (congestive heart failure) Code(s): I50.9 - HEART FAILURE, UNSPECIFIED Qualifiers: Congestive heart failure type: diastolic Congestive heart failure chronicity: acute on chronic Qualified Code(s): I50.33 - Acute on chronic diastolic (congestive) heart failure (5) PAD (peripheral artery disease) Code(s): I73.9 - PERIPHERAL VASCULAR DISEASE, UNSPECIFIED (6) Methadone dependence Code(s): F11.20 - OPIOID DEPENDENCE, UNCOMPLICATED (7) Substance abuse Code(s): F19.10 - OTHER PSYCHOACTIVE SUBSTANCE ABUSE, UNCOMPLICATED Visit type - Emergency Visit Emergency Visit: Yes ED Registration Date: 12/22/16 Care time: The patient presented to the Emergency Department on the above date and was hospitalized for further evaluation of their emergent condition. - New Patient This patient is new to me today: No - Critical Care Critical Care patient: No
--- NOTE | 2017-01-10 12:50 | PN ---
Progress Note, Physician History of Present Illness: patient with cdiff positive feeling no new issues says feeling much better - Current Medication List Current Medications: Active Medications Acetaminophen (Tylenol Oral Solution -) 650 mg PO Q6H PRN PRN Reason: FEVER OR PAIN Last Admin: 01/10/17 12:21 Dose: 650 mg Albuterol/Ipratropium (Duoneb -) 1 amp NEB Q6H PRN PRN Reason: SHORTNESS OF BREATH Last Admin: 01/01/17 20:25 Dose: 1 amp Amiodarone HCl (Cordarone -) 200 mg PO DAILY [facility] Diphenhydramine HCl (Benadryl -) 25 mg PO HS [facility] Last Admin: 01/09/17 21:12 Dose: 25 mg Vancomycin HCl 1,250 mg/ (Dextrose) 250 mls @ 166.667 mls/hr IVPB DAILY@1600 [facility] PRN Reason: Protocol Last Admin: 01/09/17 16:18 Dose: 166.667 mls/hr Insulin Detemir (Levemir Vial) 5 units SQ [facility] Last Admin: 01/09/17 21:12 Dose: 5 units Lactobacillus Acidophilus (Bacid -) 1 tab PO DAILY [facility] Last Admin: 01/10/17 09:06 Dose: 1 tab Methadone HCl 40 mg/ Methadone (HCl 30 mg) 70 mg PO DAILY@0600 [facility] Last Admin: 01/10/17 06:00 Dose: 70 mg Metoprolol Tartrate (Lopressor -) 50 mg PO BID [facility] Metronidazole (Flagyl -) 500 mg PO TID [facility] Last Admin: 01/10/17 06:00 Dose: 500 mg Pantoprazole Sodium (Protonix -) 40 mg PO DAILY [facility] Last Admin: 01/10/17 09:06 Dose: 40 mg Rivaroxaban (Xarelto -) 20 mg PO DAILY [facility] Last Admin: 01/10/17 11:38 Dose: 20 mg Silver Sulfadiazine (Silvadene -) 1 applic TP DAILY [facility] Last Admin: 01/10/17 09:06 Dose: 1 applic Sodium Chloride ([place] Nasal [place] -) 2 spray NS BID PRN PRN Reason: NASAL CONGESTION Last Admin: 01/02/17 18:12 Dose: 2 spray Vancomycin HCl (Vancomycin Oral Solution) 125 mg PO Q6HPO [facility] Last Admin: 01/10/17 12:19 Dose: 125 mg - Objective Vital Signs: Vital Signs Temperature 98.3 F 01/10/17 09:00 Pulse Rate 75 01/10/17 10:31 Respiratory Rate 16 01/10/17 09:00 Blood Pressure 131/76 01/10/17 09:00 O2 Sat by Pulse Oximetry (%) 92 L 01/10/17 10:31 Constitutional: Yes: No Distress, Calm Cardiovascular: Yes: S1, S2 Respiratory: Yes: Regular, CTA Bilaterally Gastrointestinal: Yes: Normal Bowel Sounds, Soft Musculoskeletal: Yes: WNL Extremities: Yes: Other Edema: LLE: Trace, RLE: Trace Wound/Incision: Yes: Open to air, Other (healing well) Neurological: Yes: Alert, Oriented Psychiatric: Yes: Alert, Oriented Labs: CBC, BMP 01/10/17 06:15 01/10/17 06:15 INR, PTT INR 1.59 (0.82-1.09) H D 01/04/17 05:30 Assessment/Plan - Problems (1) Atrial fibrillation with rapid ventricular response Code(s): I48.91 - UNSPECIFIED ATRIAL FIBRILLATION (2) Cellulitis Code(s): L03.90 - CELLULITIS, UNSPECIFIED Qualifiers: Site of cellulitis of extremity: lower extremity Laterality: unspecified laterality (3) Methadone dependence Code(s): F11.20 - OPIOID DEPENDENCE, UNCOMPLICATED (4) PAD (peripheral artery disease) Code(s): I73.9 - PERIPHERAL VASCULAR DISEASE, UNSPECIFIED (5) Substance abuse Code(s): F19.10 - OTHER PSYCHOACTIVE SUBSTANCE ABUSE, UNCOMPLICATED (6) Diastolic dysfunction Code(s): I51.9 - HEART DISEASE, UNSPECIFIED cdiff wound infection wbc still remaining on the higher side plan continue vanco orally and iv falgyl rest continue wound care
--- NOTE | 2017-01-10 12:55 | PN ---
Progress Note (short form) - Note Progress Note: PULMONARY Doing well, denies shortness of breath, chest pain or palpitations. Last Vital Signs Temp Pulse Resp BP Pulse Ox 98.3 F 75 16 131/76 92 L 01/10/17 09:00 01/10/17 10:31 01/10/17 09:00 01/10/17 09:00 01/10/17 10:31 Gen: NAD at rest Heart: RRR Lung: distant breath sounds Abd: soft, nontender Ext: + less edema CBC, BMP 01/10/17 06:15 01/10/17 06:15 Active Medications Acetaminophen (Tylenol Oral Solution -) 650 mg PO Q6H PRN PRN Reason: FEVER OR PAIN Last Admin: 01/10/17 12:21 Dose: 650 mg Albuterol/Ipratropium (Duoneb -) 1 amp NEB Q6H PRN PRN Reason: SHORTNESS OF BREATH Last Admin: 01/01/17 20:25 Dose: 1 amp Amiodarone HCl (Cordarone -) 200 mg PO DAILY [facility] Diphenhydramine HCl (Benadryl -) 25 mg PO HS [facility] Last Admin: 01/09/17 21:12 Dose: 25 mg Vancomycin HCl 1,250 mg/ (Dextrose) 250 mls @ 166.667 mls/hr IVPB DAILY@1600 [facility] PRN Reason: Protocol Last Admin: 01/09/17 16:18 Dose: 166.667 mls/hr Insulin Detemir (Levemir Vial) 5 units SQ [facility] Last Admin: 01/09/17 21:12 Dose: 5 units Lactobacillus Acidophilus (Bacid -) 1 tab PO DAILY [facility] Last Admin: 01/10/17 09:06 Dose: 1 tab Methadone HCl 40 mg/ Methadone (HCl 30 mg) 70 mg PO DAILY@0600 [facility] Last Admin: 01/10/17 06:00 Dose: 70 mg Metoprolol Tartrate (Lopressor -) 50 mg PO BID [facility] Metronidazole (Flagyl -) 500 mg PO TID [facility] Last Admin: 01/10/17 06:00 Dose: 500 mg Pantoprazole Sodium (Protonix -) 40 mg PO DAILY [facility] Last Admin: 01/10/17 09:06 Dose: 40 mg Rivaroxaban (Xarelto -) 20 mg PO DAILY [facility] Last Admin: 01/10/17 11:38 Dose: 20 mg Silver Sulfadiazine (Silvadene -) 1 applic TP DAILY [facility] Last Admin: 01/10/17 09:06 Dose: 1 applic Sodium Chloride ([place] Nasal [place] -) 2 spray NS BID PRN PRN Reason: NASAL CONGESTION Last Admin: 01/02/17 18:12 Dose: 2 spray Vancomycin HCl (Vancomycin Oral Solution) 125 mg PO Q6HPO [facility] Last Admin: 01/10/17 12:19 Dose: 125 mg A/P s/p Aorto-bifemoral Bypass 12/30 Paroxysmal Atrial Fibrillation with RVR PAD LE Ulcers/Cellulitis LV Diastolic Dysfunction COPD Smoker - metoprolol, amiodarone for rate control - continue anticoagulation - continue antibiotics per ID - pain control - incentive spirometry - inhaled bronchodilators - O2 to keep SpO2 >90% - OOB to chair
[2017-01-10] MEDS: VANCOMYCIN 1,250 MG in DEXTROSE 5%-WATER - 250 ML IVPB SCH (16:35)
[2017-01-10] MEDS: INSULIN DETEMIR 100 UNITS/ML MDV SQ SCH (22:15)
[2017-01-10] MEDS: diphenhydrAMINE HCL 25 MG CAPSULE (FP) PO SCH (22:15)
[2017-01-10] MEDS: METOPROLOL TARTRATE 50 MG TABLET (FP) PO SCH (22:15)
[2017-01-11] MEDS ORDERED: PT OWN MED DRAWER 7, Y5N ONE ×4 (00:31→16:05)
[2017-01-11] MEDS: VANCOMYCIN 250 MG/5 ML ORAL SOLUTION PO SCH ×4 (00:33→17:10)
[2017-01-11] MEDS ORDERED: METHADONE HCL 40 MG DISPERSABLE TABLET ONE (05:43)
[2017-01-11] MEDS ORDERED: METHADONE HCL 10 MG TABLET ONE (05:43)
[2017-01-11] MEDS: METHADONE 40 MG, METHADONE 30 MG PO SCH (05:51)
[2017-01-11] MEDS: metroNIDAZOLE 250 MG TABLET PO SCH ×3 (05:53→22:19)
[2017-01-11 07:16] LABS: BASOPHIL 0.5 % (0-2.0); EOSINOPHIL 1.6 % (0-4.5); MCH 29.5 pg (25.7-33.7); MCHC 32.5 g/dl (32.0-35.9); MEAN PLT VOLUME 8.8 fl (7.5-11.1); NEUTROPHILS 82.6 % (42.8-82.8); PLATELET COUNT 259 K/MM3 (134-434); RDW 15.8 % (11.9-15.9); WHITE BLOOD COUNT 18.5 K/mm3 (4.0-10.0)
[2017-01-11] MEDS: PANTOPRAZOLE 40 MG TABLET (FP) PO SCH (09:54)
[2017-01-11] MEDS: SILVER SULFADIAZINE 1% TOP CREAM 50 GM JAR TP SCH (09:54)
[2017-01-11] MEDS: RIVAROXABAN 20 MG TABLET PO SCH (09:54)
[2017-01-11] MEDS: LACTOBACILLUS ACIDOPHILUS 1 EACH TAB (FP) PO SCH (09:54)
[2017-01-11] MEDS: METOPROLOL TARTRATE 50 MG TABLET (FP) PO SCH ×2 (09:54→22:19)
[2017-01-11] MEDS ORDERED: AMIODARONE HCL 200 MG TABLET (FP) PO SCH (10:00)
--- NOTE | 2017-01-11 10:47 | PN ---
Progress Note, Physician History of Present Illness: Remains in sinus bradycardia on amio, denies chest pain or dyspnea. Diarrhea improving on oral vanco and flagyl, denies fevers or abd pain. - Current Medication List Current Medications: Active Medications Acetaminophen (Tylenol Oral Solution -) 650 mg PO Q6H PRN PRN Reason: FEVER OR PAIN Last Admin: 01/10/17 12:21 Dose: 650 mg Albuterol/Ipratropium (Duoneb -) 1 amp NEB Q6H PRN PRN Reason: SHORTNESS OF BREATH Last Admin: 01/01/17 20:25 Dose: 1 amp Amiodarone HCl (Cordarone -) 200 mg PO DAILY [facility] Last Admin: 01/11/17 09:55 Dose: 200 mg Diphenhydramine HCl (Benadryl -) 25 mg PO HS [facility] Last Admin: 01/10/17 22:15 Dose: 25 mg Vancomycin HCl 1,250 mg/ (Dextrose) 250 mls @ 166.667 mls/hr IVPB DAILY@1600 [facility] PRN Reason: Protocol Last Admin: 01/10/17 16:35 Dose: 166.667 mls/hr Insulin Detemir (Levemir Vial) 5 units SQ HS [facility] Last Admin: 01/10/17 22:15 Dose: 5 units Lactobacillus Acidophilus (Bacid -) 1 tab PO DAILY [facility] Last Admin: 01/11/17 09:54 Dose: 1 tab Methadone HCl 40 mg/ Methadone (HCl 30 mg) 70 mg PO DAILY@0600 [facility] Last Admin: 01/11/17 05:51 Dose: 70 mg Metoprolol Tartrate (Lopressor -) 50 mg PO BID [facility] Last Admin: 01/11/17 09:54 Dose: 50 mg Metronidazole (Flagyl -) 500 mg PO TID [facility] Last Admin: 01/11/17 05:53 Dose: 500 mg Pantoprazole Sodium (Protonix -) 40 mg PO DAILY [facility] Last Admin: 01/11/17 09:54 Dose: 40 mg Rivaroxaban (Xarelto -) 20 mg PO DAILY [facility] Last Admin: 01/11/17 09:54 Dose: 20 mg Silver Sulfadiazine (Silvadene -) 1 applic TP DAILY [facility] Last Admin: 01/11/17 09:54 Dose: 1 applic Sodium Chloride ([place] Nasal [place] -) 2 spray NS BID PRN PRN Reason: NASAL CONGESTION Last Admin: 01/02/17 18:12 Dose: 2 spray Vancomycin HCl (Vancomycin Oral Solution) 125 mg PO Q6HPO [facility] Last Admin: 01/11/17 05:53 Dose: 125 mg - Objective Vital Signs: Vital Signs Temperature 98.1 F 01/11/17 06:00 Pulse Rate 56 L 01/11/17 06:00 Respiratory Rate 18 01/11/17 06:00 Blood Pressure 126/79 01/11/17 06:00 O2 Sat by Pulse Oximetry (%) 92 L 01/10/17 22:00 Constitutional: Yes: No Distress, Calm Neck: Yes: Supple Cardiovascular: Yes: Regular Rate and Rhythm, Bradycardia Respiratory: Yes: Regular, Diminished Gastrointestinal: Yes: Normal Bowel Sounds, Soft Edema: Yes Edema: LLE: Trace, RLE: Trace Labs: CBC, BMP 01/11/17 05:50 01/10/17 06:15 INR, PTT INR 1.59 (0.82-1.09) H D 01/04/17 05:30 Problem List - Problems (1) Methadone dependence Code(s): F11.20 - OPIOID DEPENDENCE, UNCOMPLICATED (2) PAD (peripheral artery disease) Code(s): I73.9 - PERIPHERAL VASCULAR DISEASE, UNSPECIFIED (3) Substance abuse Code(s): F19.10 - OTHER PSYCHOACTIVE SUBSTANCE ABUSE, UNCOMPLICATED (4) Diastolic dysfunction Code(s): I51.9 - HEART DISEASE, UNSPECIFIED (5) S/P aorto-bifemoral bypass surgery Code(s): Z95.828 - PRESENCE OF OTHER VASCULAR IMPLANTS AND GRAFTS (6) Paroxysmal atrial fibrillation Code(s): I48.0 - PAROXYSMAL ATRIAL FIBRILLATION (7) Clostridium difficile diarrhea Code(s): A04.7 - ENTEROCOLITIS DUE TO CLOSTRIDIUM DIFFICILE (8) Leukocytosis Code(s): D72.829 - ELEVATED WHITE BLOOD CELL COUNT, UNSPECIFIED Qualifiers: Leukocytosis type: unspecified Qualified Code(s): D72.829 - Elevated white blood cell count, unspecified Assessment/Plan 1. Paroxysmal atrial fibrillation/atrial flutter now in sinus rhythm [id number] score of 2, on NOAC's 2. CAD angina pectoris 3. LV diastolic dysfunction with chronic class 0-I NYHA classification LV failure, compensated 4. PAD with distal aortic occlusion and common and external iliac artery occlusion s/p Aorto-bifemoral Bypass / 5. Bilateral lower extremity ulcers/cellulitis, resolved 6. Non-compliance history 7. COPD, smoker 8. c. dificile with leukocytosis PLAN: 1. Continue Xarelto 20 qPM 2. Continue Lopressor 50 bid with uptitration as hemodynamics permitting 3. On oral vanco and flagyl course 4. D/c Amiodarone 200 qd 5. OOB to chair, PT and encourage mobilization
--- NOTE | 2017-01-11 15:24 | PN ---
Physical Exam: SUBJECTIVE: Patient seen and examined. He denies any chest pain or abdominal discomfort. OBJECTIVE: Abdominal ana c/d/i Patient tolerating meals WBC 18.5, afebrile Period Temp Pulse Resp BP Sys/Chatterjee Pulse Ox Last 24 Hr 98.0 F-98.9 F 52-68 18-22 102-126/64-83 92-98 GENERAL: The patient is awake, alert, and fully oriented, in no acute distress. HEAD: Normal with no signs of trauma. NECK: Trachea midline, full range of motion, supple. LUNGS: Breath sounds equal, clear to auscultation bilaterally, no wheezes, no crackles, no accessory muscle use. HEART: atrail fib in 120s on monitor ABDOMEN: s/p aorta fem bypass, abdomen slightly distended, + ana NEUROLOGICAL: Normal speech, gait not observed. PSYCH: Normal mood, normal affect. Laboratory Results - last 24 hr 01/10/17 01/11/17 21:02 05:50 WBC 18.5 H RBC 3.80 L Hgb 11.2 L Hct 34.5 L MCV 91.0 MCHC 32.5 RDW 15.8 Plt Count 259 MPV 8.8 Neutrophils % 82.6 Lymphocytes % 7.1 L Monocytes % 8.2 Eosinophils % 1.6 Basophils % 0.5 POC Glucometer 138 Active Medications Generic Name Dose Route Start Last Admin Trade Name Freq PRN Reason Stop Dose Admin Acetaminophen 650 mg 01/02/17 18:04 01/10/17 12:21 Tylenol Oral Solution - PO 650 mg Q6H PRN Administration FEVER OR PAIN Albuterol/Ipratropium 1 amp 12/31/16 13:34 01/01/17 20:25 Duoneb - NEB 1 amp Q6H PRN Administration SHORTNESS OF BREATH Diphenhydramine HCl 25 mg 12/30/16 22:00 01/10/17 22:15 Benadryl - PO 25 mg HS [facility] Administration Vancomycin HCl 1,250 mg/ 250 mls @ 166.667 mls/hr 01/08/17 16:00 01/10/17 16:35 Dextrose IVPB 166.667 mls/hr DAILY@1600 [facility] Administration Protocol Insulin Detemir 5 units 01/08/17 22:00 01/10/17 22:15 Levemir Vial SQ 5 units HS [facility] Administration Lactobacillus Acidophilus 1 tab 01/06/17 15:30 01/11/17 09:54 Bacid - PO 1 tab DAILY [facility] Administration Methadone HCl 40 mg/ Methadone 70 mg 12/31/16 06:00 01/11/17 05:51 HCl 30 mg PO 70 mg DAILY@0600 [facility] Administration Metoprolol Tartrate 50 mg 01/10/17 22:00 01/11/17 09:54 Lopressor - PO 50 mg BID [facility] Administration Metronidazole 500 mg 01/08/17 15:00 01/11/17 14:36 Flagyl - PO 500 mg TID [facility] Administration Pantoprazole Sodium 40 mg 01/03/17 10:00 01/11/17 09:54 Protonix - PO 40 mg DAILY [facility] Administration Rivaroxaban 20 mg 12/31/16 10:00 01/11/17 09:54 Xarelto - PO 20 mg DAILY [facility] Administration Silver Sulfadiazine 1 applic 12/31/16 10:00 01/11/17 09:54 Silvadene - TP 1 applic DAILY [facility] Administration Sodium Chloride 2 spray 01/01/17 17:07 01/02/17 18:12 [place] Nasal [place] - NS 2 spray BID PRN Administration NASAL CONGESTION Vancomycin HCl 125 mg 01/08/17 12:00 01/11/17 12:05 Vancomycin Oral Solution PO 125 mg Q6HPO [facility] Administration ASSESSMENT/PLAN: Patient is a 61 year old male with significant past medical history of of newly diagnosed atrial fibrillation (on Xarelto), CHF, HTN, PAD, and venous ulcerations on bilateral lower extremities, opioid dependence (on methadone). He was admitted on 12/22/2016 with bilateral wound cellulitis with weeping and A fib with RVR. On 12/30/2016 he underwent a Aorto-bifemoral bypass. Vascular: PAD with distal aorta and external iliac occlusion - resolved Assessment/Plan: s/p aorto-bifemoral bypass on 12/30/16 bilateral foot pulses warm to touch, denies pain or discomfort No abdominal pain, + ana - c/d/i OOB to chair as tolerated Bilateral venous stasis wounds Assessment/Plan: On going wound care with Silvadene Vascular following ID: Leukocytosis - likely secondary to + cdiff Assessment/Plan: On PO vanco Vancomycin IV daily ID following Cardiology: Afib with RVR - now in sinus rhythm/sinus bradycardia Assessment/Plan: Continue [id number] daily, Lopressor 50mg BID Amiodorone stopped secondary to bradycardia Patient remains asymptomatic Cardiology following Endocrine: Diabetes mellitus - new diagnosis Assessment/Plan: monitor BGMs, sliding scale [id number] 8.6, Metformin on discharge Psyche: Polysubstance abuse Assessment/Plan: Methadone 70mg daily Morphine 4mg IV prn for breakthrough pain Monitor pain levels F.E.N. Fluids: tolerating PO Electrolytes: monitor BMP Nutrition: diabetic diet Prophylaxis: DVT: On Xarelto 20mg daily GI: Protonix 40mg daily Needs ongoing physical therapy Disposition: Full Code. Discharge planning once cleared by ID. Visit type - Emergency Visit Emergency Visit: Yes ED Registration Date: 12/22/16 Care time: The patient presented to the Emergency Department on the above date and was hospitalized for further evaluation of their emergent condition. - New Patient This patient is new to me today: No - Critical Care Critical Care patient: No - Discharge Referral Referred to [facility] No
[2017-01-11] MEDS: VANCOMYCIN 1,250 MG in DEXTROSE 5%-WATER - 250 ML IVPB SCH (17:10)
--- NOTE | 2017-01-11 17:34 | PN ---
Progress Note (short form) - Note Progress Note: [facility] Pt seen and examined. Doing well. Feels better. All staple lines C/D/I Will remove ana prior to DC Ronnie Cunningham DO
--- NOTE | 2017-01-11 18:37 | PN ---
Progress Note, Physician History of Present Illness: stable no complaints patient clinically looks very stable the wbc are still on the higher side and has shown slight increase patinet is afebrile - Current Medication List Current Medications: Active Medications Acetaminophen (Tylenol Oral Solution -) 650 mg PO Q6H PRN PRN Reason: FEVER OR PAIN Last Admin: 01/10/17 12:21 Dose: 650 mg Albuterol/Ipratropium (Duoneb -) 1 amp NEB Q6H PRN PRN Reason: SHORTNESS OF BREATH Last Admin: 01/01/17 20:25 Dose: 1 amp Diphenhydramine HCl (Benadryl -) 25 mg PO HS COUNTS INCLUDE 234 BEDS AT THE [facility] Last Admin: 01/10/17 22:15 Dose: 25 mg Vancomycin HCl 1,250 mg/ (Dextrose) 250 mls @ 166.667 mls/hr IVPB DAILY@1600 DOMINIC PRN Reason: Protocol Last Admin: 01/11/17 17:10 Dose: 166.667 mls/hr Insulin Detemir (Levemir Vial) 5 units SQ [facility] Last Admin: 01/10/17 22:15 Dose: 5 units Lactobacillus Acidophilus (Bacid -) 1 tab PO DAILY COUNTS INCLUDE 234 BEDS AT THE [facility] Last Admin: 01/11/17 09:54 Dose: 1 tab Methadone HCl 40 mg/ Methadone (HCl 30 mg) 70 mg PO DAILY@0600 COUNTS INCLUDE 234 BEDS AT THE [facility] Last Admin: 01/11/17 05:51 Dose: 70 mg Metoprolol Tartrate (Lopressor -) 50 mg PO BID COUNTS INCLUDE 234 BEDS AT THE [facility] Last Admin: 01/11/17 09:54 Dose: 50 mg Metronidazole (Flagyl -) 500 mg PO TID COUNTS INCLUDE 234 BEDS AT THE [facility] Last Admin: 01/11/17 14:36 Dose: 500 mg Pantoprazole Sodium (Protonix -) 40 mg PO DAILY COUNTS INCLUDE 234 BEDS AT THE [facility] Last Admin: 01/11/17 09:54 Dose: 40 mg Rivaroxaban (Xarelto -) 20 mg PO DAILY COUNTS INCLUDE 234 BEDS AT THE [facility] Last Admin: 01/11/17 09:54 Dose: 20 mg Silver Sulfadiazine (Silvadene -) 1 applic TP DAILY COUNTS INCLUDE 234 BEDS AT THE [facility] Last Admin: 01/11/17 09:54 Dose: 1 applic Sodium Chloride ([place] Nasal [place] -) 2 spray NS BID PRN PRN Reason: NASAL CONGESTION Last Admin: 01/02/17 18:12 Dose: 2 spray Vancomycin HCl (Vancomycin Oral Solution) 125 mg PO Q6HPO COUNTS INCLUDE 234 BEDS AT THE [facility] Last Admin: 01/11/17 17:10 Dose: 125 mg - Objective Vital Signs: Vital Signs Temperature 98.3 F 01/11/17 13:59 Pulse Rate 62 01/11/17 14:27 Respiratory Rate 20 01/11/17 13:59 Blood Pressure 102/64 01/11/17 13:59 O2 Sat by Pulse Oximetry (%) 98 01/11/17 14:27 Constitutional: Yes: No Distress, Calm Cardiovascular: Yes: S1, S2 Respiratory: Yes: Regular, CTA Bilaterally Gastrointestinal: Yes: Normal Bowel Sounds, Soft Musculoskeletal: Yes: Other Extremities: Yes: Other Neurological: Yes: Alert, Oriented Psychiatric: Yes: Alert, Oriented Labs: CBC, BMP 01/11/17 05:50 01/10/17 06:15 INR, PTT INR 1.59 (0.82-1.09) H D 01/04/17 05:30 Assessment/Plan - Problems (1) Atrial fibrillation with rapid ventricular response Code(s): I48.91 - UNSPECIFIED ATRIAL FIBRILLATION (2) Cellulitis Code(s): L03.90 - CELLULITIS, UNSPECIFIED Qualifiers: Site of cellulitis of extremity: lower extremity Laterality: unspecified laterality (3) Methadone dependence Code(s): F11.20 - OPIOID DEPENDENCE, UNCOMPLICATED (4) PAD (peripheral artery disease) Code(s): I73.9 - PERIPHERAL VASCULAR DISEASE, UNSPECIFIED (5) Substance abuse Code(s): F19.10 - OTHER PSYCHOACTIVE SUBSTANCE ABUSE, UNCOMPLICATED (6) Diastolic dysfunction Code(s): I51.9 - HEART DISEASE, UNSPECIFIED cdiff wound infection wbc still remaining on the higher side plan continue vanco orally and iv falgyl wound care if the wbc does not come down---CT scan of the abdomen
[2017-01-11] MEDS: INSULIN DETEMIR 100 UNITS/ML MDV SQ SCH (22:19)
[2017-01-11] MEDS: diphenhydrAMINE HCL 25 MG CAPSULE (FP) PO SCH (22:19)
[2017-01-11] MEDS ORDERED: INSULIN DETEMIR 100 UNITS/ML MDV SQ ONE (23:46)
[2017-01-12] MEDS: VANCOMYCIN 250 MG/5 ML ORAL SOLUTION PO SCH ×5 (00:59→23:23)
[2017-01-12] MEDS ORDERED: METHADONE HCL 40 MG DISPERSABLE TABLET ONE (05:17)
[2017-01-12] MEDS ORDERED: METHADONE HCL 10 MG TABLET ONE (05:18)
[2017-01-12] MEDS: METHADONE 40 MG, METHADONE 30 MG PO SCH (05:38)
[2017-01-12] MEDS: metroNIDAZOLE 250 MG TABLET PO SCH ×3 (05:38→21:35)
[2017-01-12 08:41] LABS: BASOPHIL 0.7 % (0-2.0); EOSINOPHIL 1.7 % (0-4.5); MCH 29.1 pg (25.7-33.7); MCHC 31.9 g/dl (32.0-35.9); MEAN CELL VOLUME 91.4 fl (80-96); MEAN PLT VOLUME 8.6 fl (7.5-11.1); NEUTROPHILS 83.6 % (42.8-82.8); PLATELET COUNT 249 K/MM3 (134-434); RDW 15.8 % (11.9-15.9); WHITE BLOOD COUNT 19.1 K/mm3 (4.0-10.0)
[2017-01-12] MEDS ORDERED: PT OWN MED DRAWER 7, Y5N ONE (08:50)
[2017-01-12] MEDS: LACTOBACILLUS ACIDOPHILUS 1 EACH TAB (FP) PO SCH (09:02)
[2017-01-12] MEDS: RIVAROXABAN 20 MG TABLET PO SCH (09:02)
[2017-01-12] MEDS: METOPROLOL TARTRATE 50 MG TABLET (FP) PO SCH ×2 (09:02→21:35)
[2017-01-12] MEDS: PANTOPRAZOLE 40 MG TABLET (FP) PO SCH (09:02)
[2017-01-12] MEDS: SILVER SULFADIAZINE 1% TOP CREAM 50 GM JAR TP SCH (09:05)
[2017-01-12 09:17] LABS: SGOT/AST 25 U/L (15-37); SGPT/ALT 20 U/L (12-78)
--- NOTE | 2017-01-12 09:17 | PN ---
Physical Exam: SUBJECTIVE: Patient seen and examined. He states he feels well. Walked with physical therapy, patient is eager to go home. Assured him discharge planning is in progress. OBJECTIVE: WBC continues to rise, will order CT abdomen to r/o abscess Patient remains afebrile Awaiting CT scan read Pt is on Vancomycin since 01/08/17 and on oral vanco for cdiff since 01/08/17 and leukocytosis continues - blood cultures pending Likely will need STR, social work made aware - pt is on Methadone 70mg daily Vital Signs Period Temp Pulse Resp BP Sys/Chatterjee Pulse Ox Last 24 Hr 98.0 F-98.4 F 50-97 16-22 102-124/55-71 98-98 GENERAL: The patient is awake, alert, and fully oriented, in no acute distress. HEAD: Normal with no signs of trauma. NECK: Trachea midline, full range of motion, supple. LUNGS: Breath sounds equal, clear to auscultation bilaterally, no wheezes, no crackles, no accessory muscle use. HEART: sinus bradycardia 40s to 50s on monitoring engineer ABDOMEN: s/p aorta fem bypass, abdomen slightly distended, + ana - ana to be removed prior to discharge NEUROLOGICAL: Normal speech, gait not observed. PSYCH: Normal mood, normal affect. Laboratory Results - last 24 hr 01/11/17 01/11/17 01/12/17 15:03 21:58 05:26 WBC RBC Hgb Hct MCV MCHC RDW Plt Count MPV Neutrophils % Lymphocytes % Monocytes % Eosinophils % Basophils % POC Glucometer 148 97 Vancomycin Trough 12.478 H D 01/12/17 08:20 WBC 19.1 H RBC 3.70 L Hgb 10.8 L Hct 33.8 L MCV 91.4 MCHC 31.9 L RDW 15.8 Plt Count 249 MPV 8.6 Neutrophils % 83.6 H Lymphocytes % 6.3 L Monocytes % 7.7 Eosinophils % 1.7 Basophils % 0.7 POC Glucometer Vancomycin Trough Active Medications Generic Name Dose Route Start Last Admin Trade Name Freq PRN Reason Stop Dose Admin Acetaminophen 650 mg 01/02/17 18:04 01/10/17 12:21 Tylenol Oral Solution - PO 650 mg Q6H PRN Administration FEVER OR PAIN Albuterol/Ipratropium 1 amp 12/31/16 13:34 01/01/17 20:25 Duoneb - NEB 1 amp Q6H PRN Administration SHORTNESS OF BREATH Diphenhydramine HCl 25 mg 12/30/16 22:00 01/11/17 22:19 Benadryl - PO 25 mg HS DOMINIC Administration Vancomycin HCl 1,250 mg/ 250 mls @ 166.667 mls/hr 01/08/17 16:00 01/11/17 17:10 Dextrose IVPB 166.667 mls/hr DAILY@1600 DOMINIC Administration Protocol Insulin Detemir 5 units 01/08/17 22:00 01/11/17 22:19 Levemir Vial SQ 5 units HS DOMINIC Administration Lactobacillus Acidophilus 1 tab 01/06/17 15:30 01/12/17 09:02 Bacid - PO 1 tab DAILY [facility]INIC Administration Metoprolol Tartrate 50 mg 01/10/17 22:00 01/12/17 09:02 Lopressor - PO 50 mg BID DOMINIC Administration Metronidazole 500 mg 01/08/17 15:00 01/12/17 05:38 Flagyl - PO 500 mg TID DOMINIC Administration Pantoprazole Sodium 40 mg 01/03/17 10:00 01/12/17 09:02 Protonix - PO 40 mg DAILY [facility]IC Administration Rivaroxaban 20 mg 12/31/16 10:00 01/12/17 09:02 Xarelto - PO 20 mg DAILY [facility]IC Administration Silver Sulfadiazine 1 applic 12/31/16 10:00 01/12/17 09:05 Silvadene - TP 1 applic DAILY [facility]IC Administration Sodium Chloride 2 spray 01/01/17 17:07 01/02/17 18:12 [place] Nasal [place] - NS 2 spray BID PRN Administration NASAL CONGESTION Vancomycin HCl 125 mg 01/08/17 12:00 01/12/17 00:59 Vancomycin Oral Solution PO 125 mg Q6HPO [facility]IC Administration ASSESSMENT/PLAN: Patient is a 61 year old male with significant past medical history of of newly diagnosed atrial fibrillation (on Xarelto), CHF, HTN, PAD, and venous ulcerations on bilateral lower extremities, opioid dependence (on methadone). He was admitted on 12/22/2016 with bilateral wound cellulitis with weeping and A fib with RVR. On 12/30/2016 he underwent a Aorto-bifemoral bypass. He is s/p ICU monitoring x 14 days. Vascular: PAD with distal aorta and external iliac occlusion - resolved Assessment/Plan: s/p aorto-bifemoral bypass on 12/30/16 bilateral foot pulses warm to touch, denies pain or discomfort No abdominal pain, + ana - c/d/i - ana to be removed prior to discharge OOB to chair as tolerated Bilateral venous stasis wounds - improving Assessment/Plan: On going wound care with Silvadene Vascular following ID: Leukocytosis - likely secondary to + cdiff, but WBC continues to trend up Patient states he did not have a BM all night, but had one loose BM yesterday Assessment/Plan: On PO vanco, Vancomycin IV daily and Flagyl PO TID ID following Cardiology: Afib with RVR - now in sinus rhythm/sinus bradycardia Assessment/Plan: Continue [id number] daily, Lopressor 50mg BID Amiodorone stopped secondary to bradycardia Patient remains asymptomatic Cardiology following Endocrine: Diabetes mellitus - new diagnosis Assessment/Plan: monitor BGMs, sliding scale [id number] 8.6, Metformin on discharge Psyche: Polysubstance abuse Assessment/Plan: Methadone 70mg daily Morphine 4mg IV prn for breakthrough pain F.E.N. Fluids: tolerating PO Electrolytes: monitor BMP Nutrition: diabetic diet Prophylaxis: DVT: On Xarelto 20mg daily GI: Protonix 40mg daily Needs ongoing physical therapy - likely STR on d/c. Disposition: Full Code. Discharge planning once cleared by ID. Awaiting CT scan of abdomen results. Visit type - Emergency Visit Emergency Visit: Yes ED Registration Date: 12/22/16 Care time: The patient presented to the Emergency Department on the above date and was hospitalized for further evaluation of their emergent condition. - New Patient This patient is new to me today: No - Critical Care Critical Care patient: No - Discharge Referral Referred to [facility] Med P.C.: No
[2017-01-12 09:22] LABS: ALBUMIN 2.2 g/dl (3.4-5.0); ALK PHOS 119 U/L (45-117); ANION GAP 8 (8-16); BILIRUBIN,TOTAL 0.4 mg/dL (0.2-1.0); CALCIUM 8.3 mg/dL (8.5-10.1); CO2 32 mmol/L (21-32); CREATININE 1.1 mg/dL (0.7-1.3); GLUCOSE,RANDOM 88 mg/dL (74-106); TOT PROT 4.7 g/dl (6.4-8.2)
--- NOTE | 2017-01-12 10:00 | PN ---
Progress Note, Physician Chief Complaint: Not in distress Post op aorto-bifem bypass History of Present Illness: Patient was seen and examined. Awake and alert. Chart was reviewed Denies chest pain, SOB or palpitations Bradycardia 40-50 possibly AF - Current Medication List Current Medications: Active Medications Acetaminophen (Tylenol Oral Solution -) 650 mg PO Q6H PRN PRN Reason: FEVER OR PAIN Last Admin: 01/10/17 12:21 Dose: 650 mg Albuterol/Ipratropium (Duoneb -) 1 amp NEB Q6H PRN PRN Reason: SHORTNESS OF BREATH Last Admin: 01/01/17 20:25 Dose: 1 amp Diphenhydramine HCl (Benadryl -) 25 mg PO HS [facility] Last Admin: 01/11/17 22:19 Dose: 25 mg Vancomycin HCl 1,250 mg/ (Dextrose) 250 mls @ 166.667 mls/hr IVPB DAILY@1600 DOMINIC PRN Reason: Protocol Last Admin: 01/11/17 17:10 Dose: 166.667 mls/hr Insulin Detemir (Levemir Vial) 5 units SQ HS [facility] Last Admin: 01/11/17 22:19 Dose: 5 units Lactobacillus Acidophilus (Bacid -) 1 tab PO DAILY [facility] Last Admin: 01/12/17 09:02 Dose: 1 tab Metoprolol Tartrate (Lopressor -) 50 mg PO BID [facility] Last Admin: 01/12/17 09:02 Dose: 50 mg Metronidazole (Flagyl -) 500 mg PO TID [facility] Last Admin: 01/12/17 05:38 Dose: 500 mg Pantoprazole Sodium (Protonix -) 40 mg PO DAILY [facility] Last Admin: 01/12/17 09:02 Dose: 40 mg Rivaroxaban (Xarelto -) 20 mg PO DAILY [facility] Last Admin: 01/12/17 09:02 Dose: 20 mg Silver Sulfadiazine (Silvadene -) 1 applic TP DAILY [facility] Last Admin: 01/12/17 09:05 Dose: 1 applic Sodium Chloride ([place] Nasal [place] -) 2 spray NS BID PRN PRN Reason: NASAL CONGESTION Last Admin: 01/02/17 18:12 Dose: 2 spray Vancomycin HCl (Vancomycin Oral Solution) 125 mg PO Q6HPO [facility] Last Admin: 01/12/17 00:59 Dose: 125 mg - Objective Vital Signs: Vital Signs Temperature 98.4 F 01/12/17 06:00 Pulse Rate 53 L 01/12/17 06:00 Respiratory Rate 20 01/12/17 06:00 Blood Pressure 104/60 01/12/17 06:00 O2 Sat by Pulse Oximetry (%) 98 01/11/17 21:00 Neck: Yes: Supple Cardiovascular: Yes: Pulse Irregular, S1, S2 Respiratory: Yes: Diminished Gastrointestinal: Yes: Normal Bowel Sounds, Soft. No: Tenderness Edema: Yes Edema: LLE: 1+ Wound/Incision: Yes: Dressing Dry and Intact Additional Findings/Remarks: - Review of Systems Cardiovascular: As noted above Respiratory: denies: denies: Cough or Sputum Production Gastrointestinal: denies: Nausea, Vomiting, Diarrhea, Constipation or Abdominal Discomfort Musculoskeletal: No Symptoms Reported Endocrine: No Symptoms Reported Labs: CBC, BMP 01/12/17 08:20 01/12/17 08:20 Problem List - Problems (1) Atrial fibrillation with rapid ventricular response Code(s): I48.91 - UNSPECIFIED ATRIAL FIBRILLATION (2) CHF (congestive heart failure) Code(s): I50.9 - HEART FAILURE, UNSPECIFIED Qualifiers: Congestive heart failure type: diastolic Congestive heart failure chronicity: acute on chronic Qualified Code(s): I50.33 - Acute on chronic diastolic (congestive) heart failure (3) Cellulitis Code(s): L03.90 - CELLULITIS, UNSPECIFIED Qualifiers: Site of cellulitis of extremity: lower extremity Laterality: unspecified laterality (4) Diastolic dysfunction Code(s): I51.9 - HEART DISEASE, UNSPECIFIED (5) Methadone dependence Code(s): F11.20 - OPIOID DEPENDENCE, UNCOMPLICATED (6) PAD (peripheral artery disease) Code(s): I73.9 - PERIPHERAL VASCULAR DISEASE, UNSPECIFIED (7) Pre-operative cardiovascular examination, high risk surgery Code(s): Z01.810 - ENCOUNTER FOR PREPROCEDURAL CARDIOVASCULAR EXAMINATION Assessment/Plan 1. Paroxysmal atrial fibrillation/atrial flutter [id number] score of 2 on NOAC 2. CAD angina pectoris 3. LV diastolic dysfunction with chronic class 0-I NYHA classification LV failure, compensated 4. PAD with distal aortic occlusion and common and external iliac artery occlusion s/p Aorto-bifemoral Bypass (5/) 5. Bilateral lower extremity ulcer/cellulitis 6. History of non-compliance 7. COPD - smoker 8. C. difficile with leukocytosis PLAN: 1. Continue Xarelto 20 mg once a day 2. Continue Lopressor 50 bid as tolerated and monitor HR 3. Antibiotic coverage 4. Amiodarone was stopped 5. OOB to chair, PT and encourage mobilization 6. ECG Further plans
[2017-01-12] MEDS: VANCOMYCIN 1,250 MG in DEXTROSE 5%-WATER - 250 ML IVPB SCH (16:16)
--- NOTE | 2017-01-12 17:06 | EKG ---
Test Reason : Blood Pressure : / mmHG Vent. Rate : 051 BPM Atrial Rate : 051 BPM P-R Int : 138 ms QRS Dur : 078 ms QT Int : 446 ms P-R-T Axes : 063 065 107 degrees QTc Int : 411 ms SINUS BRADYCARDIA T WAVE ABNORMALITY, CONSIDER ANTEROLATERAL ISCHEMIA ABNORMAL ECG WHEN COMPARED WITH ECG OF 02-JAN-2017 23:49, SINUS RHYTHM HAS REPLACED ATRIAL FIBRILLATION VENT. RATE HAS DECREASED BY 60 BPM Confirmed by CARON SIDDIQI MD ([id number]) on 01/12/2017 5:05:41 PM Referred By: Leticia PATIÑO Confirmed By:CARON SIDDIQI MD
[2017-01-12] MEDS: diphenhydrAMINE HCL 25 MG CAPSULE (FP) PO SCH (21:35)
[2017-01-12] MEDS: INSULIN DETEMIR 100 UNITS/ML MDV SQ SCH (21:35)
--- NOTE | 2017-01-12 23:14 | PN ---
Progress Note, Physician History of Present Illness: clinically patient is looking stable wbc still rising ct scan of the abd does not show any finding patients dirrhoea improving - Current Medication List Current Medications: Active Medications Acetaminophen (Tylenol Oral Solution -) 650 mg PO Q6H PRN PRN Reason: FEVER OR PAIN Last Admin: 01/10/17 12:21 Dose: 650 mg Albuterol/Ipratropium (Duoneb -) 1 amp NEB Q6H PRN PRN Reason: SHORTNESS OF BREATH Last Admin: 01/01/17 20:25 Dose: 1 amp Diphenhydramine HCl (Benadryl -) 25 mg PO HS [facility] Last Admin: 01/12/17 21:35 Dose: 25 mg Vancomycin HCl 1,250 mg/ (Dextrose) 250 mls @ 166.667 mls/hr IVPB DAILY@1600 DOMINIC PRN Reason: Protocol Last Admin: 01/12/17 16:16 Dose: 166.667 mls/hr Insulin Detemir (Levemir Vial) 5 units SQ HS [facility] Last Admin: 01/12/17 21:35 Dose: 5 units Lactobacillus Acidophilus (Bacid -) 1 tab PO DAILY [facility] Last Admin: 01/12/17 09:02 Dose: 1 tab Metoprolol Tartrate (Lopressor -) 50 mg PO BID [facility] Last Admin: 01/12/17 21:35 Dose: 50 mg Metronidazole (Flagyl -) 500 mg PO TID [facility] Last Admin: 01/12/17 21:35 Dose: 500 mg Pantoprazole Sodium (Protonix -) 40 mg PO DAILY [facility] Last Admin: 01/12/17 09:02 Dose: 40 mg Rivaroxaban (Xarelto -) 20 mg PO DAILY [facility] Last Admin: 01/12/17 09:02 Dose: 20 mg Silver Sulfadiazine (Silvadene -) 1 applic TP DAILY [facility] Last Admin: 01/12/17 09:05 Dose: 1 applic Sodium Chloride ([place] Nasal [place] -) 2 spray NS BID PRN PRN Reason: NASAL CONGESTION Last Admin: 01/02/17 18:12 Dose: 2 spray Vancomycin HCl (Vancomycin Oral Solution) 125 mg PO Q6HPO [facility] Last Admin: 01/12/17 18:27 Dose: 125 mg - Objective Vital Signs: Vital Signs Temperature 98.3 F 01/12/17 15:13 Pulse Rate 55 L 01/12/17 15:13 Respiratory Rate 20 01/12/17 15:13 Blood Pressure 154/79 01/12/17 15:13 O2 Sat by Pulse Oximetry (%) 96 01/12/17 09:00 Constitutional: Yes: No Distress, Calm Cardiovascular: Yes: Regular Rate and Rhythm Respiratory: Yes: Regular, Poor Air Entry (bases) Gastrointestinal: Yes: Normal Bowel Sounds, Soft Musculoskeletal: Yes: Other Extremities: Yes: Other Integumentary: Yes: Other Wound/Incision: Yes: Other Neurological: Yes: Alert, Oriented Psychiatric: Yes: Alert, Oriented Labs: CBC, BMP 01/12/17 08:20 01/12/17 08:20 INR, PTT INR 1.59 (0.82-1.09) H D 01/04/17 05:30 Assessment/Plan - Problems (1) Atrial fibrillation with rapid ventricular response Code(s): I48.91 - UNSPECIFIED ATRIAL FIBRILLATION (2) Cellulitis Code(s): L03.90 - CELLULITIS, UNSPECIFIED Qualifiers: Site of cellulitis of extremity: lower extremity Laterality: unspecified laterality (3) Methadone dependence Code(s): F11.20 - OPIOID DEPENDENCE, UNCOMPLICATED (4) PAD (peripheral artery disease) Code(s): I73.9 - PERIPHERAL VASCULAR DISEASE, UNSPECIFIED (5) Substance abuse Code(s): F19.10 - OTHER PSYCHOACTIVE SUBSTANCE ABUSE, UNCOMPLICATED (6) Diastolic dysfunction Code(s): I51.9 - HEART DISEASE, UNSPECIFIED cdiff wound infection wbc increasing plan continue vanco orally and iv will change flagyl to iv ct scan noted if wbc goes up tomorrow will restart ertapenam will rick cx if wbc keeps on increasing
[2017-01-12] MEDS: METRONIDAZOLE 500 MG PREMIXED 100 ML IVPB SCH (23:22)
[2017-01-13] MEDS: VANCOMYCIN 250 MG/5 ML ORAL SOLUTION PO SCH ×3 (05:11→17:12)
[2017-01-13 06:42] LABS: BASOPHIL 0.5 % (0-2.0); EOSINOPHIL 1.8 % (0-4.5); MCH 29.6 pg (25.7-33.7); MCHC 32.2 g/dl (32.0-35.9); MEAN PLT VOLUME 9.2 fl (7.5-11.1); NEUTROPHILS 81.4 % (42.8-82.8); PLATELET COUNT 226 K/MM3 (134-434); RDW 16.1 % (11.9-15.9); WHITE BLOOD COUNT 16.9 K/mm3 (4.0-10.0)
[2017-01-13 07:27] LABS: ALBUMIN 2.1 g/dl (3.4-5.0); BILIRUBIN,TOTAL 0.4 mg/dL (0.2-1.0); CALCIUM 7.9 mg/dL (8.5-10.1); COCKROFT - GAULT 77.42; CREATININE 1.3 mg/dL (0.7-1.3); TOT PROT 4.6 g/dl (6.4-8.2)
[2017-01-13] MEDS: LACTOBACILLUS ACIDOPHILUS 1 EACH TAB (FP) PO SCH (09:02)
[2017-01-13] MEDS: METOPROLOL TARTRATE 50 MG TABLET (FP) PO SCH ×2 (09:02→21:47)
[2017-01-13] MEDS: PANTOPRAZOLE 40 MG TABLET (FP) PO SCH (09:02)
[2017-01-13] MEDS: METRONIDAZOLE 500 MG PREMIXED 100 ML IVPB SCH ×2 (09:02→17:11)
[2017-01-13] MEDS: SILVER SULFADIAZINE 1% TOP CREAM 50 GM JAR TP SCH (09:03)
[2017-01-13] MEDS: RIVAROXABAN 20 MG TABLET PO SCH (09:34)
--- NOTE | 2017-01-13 10:13 | PN ---
Progress Note, Physician History of Present Illness: Sinus bradycardia off amio, denies chest pain or dyspnea. Diarrhea and leukocytosis improving on oral vanco and flagyl, denies fevers or abd pain. Abd& pelvic CT-Negative. - Current Medication List Current Medications: Active Medications Acetaminophen (Tylenol Oral Solution -) 650 mg PO Q6H PRN PRN Reason: FEVER OR PAIN Last Admin: 01/10/17 12:21 Dose: 650 mg Albuterol/Ipratropium (Duoneb -) 1 amp NEB Q6H PRN PRN Reason: SHORTNESS OF BREATH Last Admin: 01/01/17 20:25 Dose: 1 amp Diphenhydramine HCl (Benadryl -) 25 mg PO HS [facility] Last Admin: 01/12/17 21:35 Dose: 25 mg Vancomycin HCl 1,250 mg/ (Dextrose) 250 mls @ 166.667 mls/hr IVPB DAILY@1600 DOMINIC PRN Reason: Protocol Last Admin: 01/12/17 16:16 Dose: 166.667 mls/hr Metronidazole (Flagyl 500mg Premixed Ivpb -) 100 mls @ 100 mls/hr IVPB Q8H-IV [facility] Last Admin: 01/13/17 09:02 Dose: 100 mls/hr Insulin Detemir (Levemir Vial) 5 units SQ HS [facility] Last Admin: 01/12/17 21:35 Dose: 5 units Lactobacillus Acidophilus (Bacid -) 1 tab PO DAILY [facility] Last Admin: 01/13/17 09:02 Dose: 1 tab Metoprolol Tartrate (Lopressor -) 50 mg PO BID [facility] Last Admin: 01/13/17 09:02 Dose: Not Given Pantoprazole Sodium (Protonix -) 40 mg PO DAILY [facility] Last Admin: 01/13/17 09:02 Dose: 40 mg Rivaroxaban (Xarelto -) 20 mg PO DAILY [facility] Last Admin: 01/13/17 09:34 Dose: 20 mg Silver Sulfadiazine (Silvadene -) 1 applic TP DAILY [facility] Last Admin: 01/13/17 09:03 Dose: 1 applic Sodium Chloride ([place] Nasal [place] -) 2 spray NS BID PRN PRN Reason: NASAL CONGESTION Last Admin: 01/02/17 18:12 Dose: 2 spray Vancomycin HCl (Vancomycin Oral Solution) 125 mg PO Q6HPO [facility] Last Admin: 01/13/17 05:11 Dose: 125 mg - Objective Vital Signs: Vital Signs Temperature 98.3 F 01/13/17 09:22 Pulse Rate 63 01/13/17 09:22 Respiratory Rate 20 01/13/17 09:22 Blood Pressure 93/46 01/13/17 09:22 O2 Sat by Pulse Oximetry (%) 96 01/12/17 22:00 Constitutional: Yes: No Distress, Calm Neck: Yes: Supple Cardiovascular: Yes: Regular Rate and Rhythm, Bradycardia Respiratory: Yes: Regular, CTA Bilaterally Gastrointestinal: Yes: Normal Bowel Sounds, Soft Edema: Yes Edema: LLE: 1+, RLE: 1+ Labs: CBC, BMP 01/13/17 05:35 01/13/17 05:35 INR, PTT INR 1.59 (0.82-1.09) H D 01/04/17 05:30 Problem List - Problems (1) Methadone dependence Code(s): F11.20 - OPIOID DEPENDENCE, UNCOMPLICATED (2) PAD (peripheral artery disease) Code(s): I73.9 - PERIPHERAL VASCULAR DISEASE, UNSPECIFIED (3) Substance abuse Code(s): F19.10 - OTHER PSYCHOACTIVE SUBSTANCE ABUSE, UNCOMPLICATED (4) Diastolic dysfunction Code(s): I51.9 - HEART DISEASE, UNSPECIFIED (5) S/P aorto-bifemoral bypass surgery Code(s): Z95.828 - PRESENCE OF OTHER VASCULAR IMPLANTS AND GRAFTS (6) Paroxysmal atrial fibrillation Code(s): I48.0 - PAROXYSMAL ATRIAL FIBRILLATION (7) Clostridium difficile diarrhea Code(s): A04.7 - ENTEROCOLITIS DUE TO CLOSTRIDIUM DIFFICILE (8) Leukocytosis Code(s): D72.829 - ELEVATED WHITE BLOOD CELL COUNT, UNSPECIFIED Qualifiers: Leukocytosis type: unspecified Qualified Code(s): D72.829 - Elevated white blood cell count, unspecified Assessment/Plan 1. Paroxysmal atrial fibrillation/atrial flutter->sinus rhythm [id number] score of 2 on NOAC 2. CAD angina pectoris 3. LV diastolic dysfunction with chronic class 0-I NYHA classification LV failure, compensated 4. PAD with distal aortic occlusion and common and external iliac artery occlusion s/p Aorto-bifemoral Bypass (5/) 5. Bilateral lower extremity ulcer/cellulitis 6. History of non-compliance 7. COPD - smoker 8. C. difficile with leukocytosis PLAN: 1. Continue Xarelto 20 mg once a day 2. Continue Lopressor 50 bid as tolerated and monitor HR 3. Complete antibiotic coverage 5. OOB to chair, PT and encourage mobilization
--- NOTE | 2017-01-13 12:34 | PN ---
Progress Note, Physician History of Present Illness: doing better no new issues dirrhoea much better - Current Medication List Current Medications: Active Medications Acetaminophen (Tylenol Oral Solution -) 650 mg PO Q6H PRN PRN Reason: FEVER OR PAIN Last Admin: 01/10/17 12:21 Dose: 650 mg Albuterol/Ipratropium (Duoneb -) 1 amp NEB Q6H PRN PRN Reason: SHORTNESS OF BREATH Last Admin: 01/01/17 20:25 Dose: 1 amp Diphenhydramine HCl (Benadryl -) 25 mg PO HS [facility] Last Admin: 01/12/17 21:35 Dose: 25 mg Vancomycin HCl 1,250 mg/ (Dextrose) 250 mls @ 166.667 mls/hr IVPB DAILY@1600 [facility] PRN Reason: Protocol Last Admin: 01/12/17 16:16 Dose: 166.667 mls/hr Metronidazole (Flagyl 500mg Premixed Ivpb -) 100 mls @ 100 mls/hr IVPB Q8H-IV [facility] Last Admin: 01/13/17 09:02 Dose: 100 mls/hr Insulin Detemir (Levemir Vial) 5 units SQ HS [facility] Last Admin: 01/12/17 21:35 Dose: 5 units Lactobacillus Acidophilus (Bacid -) 1 tab PO DAILY [facility] Last Admin: 01/13/17 09:02 Dose: 1 tab Metoprolol Tartrate (Lopressor -) 50 mg PO BID [facility] Last Admin: 01/13/17 09:02 Dose: Not Given Pantoprazole Sodium (Protonix -) 40 mg PO DAILY [facility] Last Admin: 01/13/17 09:02 Dose: 40 mg Rivaroxaban (Xarelto -) 20 mg PO DAILY [facility] Last Admin: 01/13/17 09:34 Dose: 20 mg Silver Sulfadiazine (Silvadene -) 1 applic TP DAILY [facility] Last Admin: 01/13/17 09:03 Dose: 1 applic Sodium Chloride ([place]al [place] -) 2 spray NS BID PRN PRN Reason: NASAL CONGESTION Last Admin: 01/02/17 18:12 Dose: 2 spray Vancomycin HCl (Vancomycin Oral Solution) 125 mg PO Q6HPO [facility] Last Admin: 01/13/17 05:11 Dose: 125 mg - Objective Vital Signs: Vital Signs Temperature 98.3 F 01/13/17 09:22 Pulse Rate 63 01/13/17 09:22 Respiratory Rate 20 01/13/17 09:22 Blood Pressure 93/46 01/13/17 09:22 O2 Sat by Pulse Oximetry (%) 97 01/13/17 09:00 Constitutional: Yes: No Distress, Calm Cardiovascular: Yes: Regular Rate and Rhythm Respiratory: Yes: Regular, CTA Bilaterally Gastrointestinal: Yes: Normal Bowel Sounds, Soft Musculoskeletal: Yes: Other Extremities: Yes: Other Wound/Incision: Yes: Other (imroving leg) Neurological: Yes: Alert, Oriented Labs: CBC, BMP 01/13/17 05:35 01/13/17 05:35 INR, PTT INR 1.59 (0.82-1.09) H D 01/04/17 05:30 Assessment/Plan - Problems (1) Atrial fibrillation with rapid ventricular response Code(s): I48.91 - UNSPECIFIED ATRIAL FIBRILLATION (2) Cellulitis Code(s): L03.90 - CELLULITIS, UNSPECIFIED Qualifiers: Site of cellulitis of extremity: lower extremity Laterality: unspecified laterality (3) Methadone dependence Code(s): F11.20 - OPIOID DEPENDENCE, UNCOMPLICATED (4) PAD (peripheral artery disease) Code(s): I73.9 - PERIPHERAL VASCULAR DISEASE, UNSPECIFIED (5) Substance abuse Code(s): F19.10 - OTHER PSYCHOACTIVE SUBSTANCE ABUSE, UNCOMPLICATED (6) Diastolic dysfunction Code(s): I51.9 - HEART DISEASE, UNSPECIFIED cdiff wound infection wbc trending down plan continue vanco orally and iv will change flagyl to iv ct scan noted if patient doing well will stop iv vanco tomorrow
--- NOTE | 2017-01-13 17:03 | PN ---
Progress Note (short form) - Note Progress Note: SUBJECTIVE: The patient was seen and examined at the bedside, he has no complaints at this time. Tmax 100.4 F/u UA, urine culture WBC trending down Current Medications Generic Name Dose Route Start Last Admin Trade Name Freq PRN Reason Stop Dose Admin Acetaminophen 650 mg 01/02/17 18:04 01/10/17 12:21 Tylenol Oral Solution - PO 650 mg Q6H PRN Administration FEVER OR PAIN Albuterol/Ipratropium 1 amp 12/31/16 13:34 01/01/17 20:25 Duoneb - NEB 1 amp Q6H PRN Administration SHORTNESS OF BREATH Diphenhydramine HCl 25 mg 12/30/16 22:00 01/12/17 21:35 Benadryl - PO 25 mg HS [facility] Administration Vancomycin HCl 1,250 mg/ 250 mls @ 166.667 mls/hr 01/08/17 16:00 01/12/17 16:16 Dextrose IVPB 166.667 mls/hr DAILY@1600 [facility] Administration Protocol Metronidazole 100 mls @ 100 mls/hr 01/12/17 23:30 01/13/17 09:02 Flagyl 500mg Premixed Ivpb - IVPB 100 mls/hr Q8H-IV [facility] Administration Insulin Detemir 5 units 01/08/17 22:00 01/12/17 21:35 Levemir Vial SQ 5 units HS [facility] Administration Lactobacillus Acidophilus 1 tab 01/06/17 15:30 01/13/17 09:02 Bacid - PO 1 tab DAILY [facility] Administration Metoprolol Tartrate 50 mg 01/10/17 22:00 01/13/17 09:02 Lopressor - PO Not Given BID [facility] Pantoprazole Sodium 40 mg 01/03/17 10:00 01/13/17 09:02 Protonix - PO 40 mg DAILY [facility] Administration Rivaroxaban 20 mg 12/31/16 10:00 01/13/17 09:34 Xarelto - PO 20 mg DAILY [facility] Administration Silver Sulfadiazine 1 applic 12/31/16 10:00 01/13/17 09:03 Silvadene - TP 1 applic DAILY [facility] Administration Sodium Chloride 2 spray 01/01/17 17:07 01/02/17 18:12 [place] Nasal [place] - NS 2 spray BID PRN Administration NASAL CONGESTION Vancomycin HCl 125 mg 01/08/17 12:00 01/13/17 05:11 Vancomycin Oral Solution PO 125 mg Q6HPO [facility] Administration OBJECTIVE: Vital Signs Period Temp Pulse Resp BP Sys/Chatterjee Pulse Ox Last 24 Hr 98.0 F-100.4 F 48-63 20-20 93-134/46-72 96-97 Physical Exam: General: NAD, A&Ox3 HEENT: Poor dentition Lungs: CTA bilaterally Heart: RRR, S1S2 Abd: Midline abdominal incision with ana, c/d/i Ext: 2+ edema. B/l lower extremity wounds closed with dried lesions CBCD WBC 16.9 K/mm3 (4.0-10.0) H 01/13/17 05:35 RBC 3.42 M/mm3 (4.00-5.60) L 01/13/17 05:35 Hgb 10.1 GM/dL (11.7-16.9) L 01/13/17 05:35 Hct 31.4 % (35.4-49) L 01/13/17 05:35 MCV 92.0 fl (80-96) 01/13/17 05:35 MCHC 32.2 g/dl (32.0-35.9) 01/13/17 05:35 RDW 16.1 % (11.9-15.9) H 01/13/17 05:35 Plt Count 226 K/MM3 (134-434) 01/13/17 05:35 MPV 9.2 fl (7.5-11.1) 01/13/17 05:35 CMP Sodium 141 mmol/L (136-145) 01/13/17 05:35 Potassium 4.0 mmol/L (3.5-5.1) 01/13/17 05:35 Chloride 100 mmol/L (98-107) 01/13/17 05:35 Carbon Dioxide 31 mmol/L (21-32) 01/13/17 05:35 Anion Gap 10 (8-16) 01/13/17 05:35 BUN 13 mg/dL (7-18) 01/13/17 05:35 Creatinine 1.3 mg/dL (0.7-1.3) 01/13/17 05:35 Creat Clearance w eGFR 56.12 (>60) 01/13/17 05:35 Random Glucose 83 mg/dL (74-106) 01/13/17 05:35 Calcium 7.9 mg/dL (8.5-10.1) L 01/13/17 05:35 Total Bilirubin 0.4 mg/dL (0.2-1.0) 01/13/17 05:35 AST 20 U/L (15-37) 01/13/17 05:35 ALT 18 U/L (12-78) 01/13/17 05:35 Alkaline Phosphatase 113 U/L (45-117) 01/13/17 05:35 Total Protein 4.6 g/dl (6.4-8.2) L 01/13/17 05:35 Albumin 2.1 g/dl (3.4-5.0) L 01/13/17 05:35 CARDIAC ENZYMES Creatine Kinase 45 IU/L (39-308) 12/22/16 11:40 Troponin I 0.02 ng/ml (0.00-0.05) 12/22/16 11:40 Microbiology 01/12/17 11:19 Blood - Peripheral Venous Blood Culture - Preliminary NO GROWTH OBTAINED AFTER 24 HOURS, INCUBATION TO CONTINUE FOR 4 DAYS. 01/12/17 10:24 Blood - Peripheral Venous Blood Culture - Preliminary NO GROWTH OBTAINED AFTER 24 HOURS, INCUBATION TO CONTINUE FOR 4 DAYS. 01/08/17 10:50 Stool Clostridium difficile Antigen (RUBÉN) - Final 01/08/17 10:50 Stool Clostridium difficile Toxin Assay - Final 01/04/17 21:48 Stool Salmonella/Shigella Culture - Final NO GROWTH OF SALMONELLA OR SHIGELLA SPECIES OBTAINED 01/04/17 21:48 Stool Campylobacter Culture - Final NO GROWTH OF CAMPYLOBACTER SPECIES OBTAINED 01/04/17 21:48 Stool Yersinia Culture - Final NO GROWTH OF YERSINIA SPECIES OBTAINED 01/04/17 21:48 Stool Vibrio Culture - Final NO GROWTH OF VIBRIO SPECIES OBTAINED 01/04/17 21:48 Stool Escherichia coli 0157 Culture - Final NO GROWTH OF E COLI 0157 OBTAINED 01/05/17 06:00 Urine - Urine [place] Urine Culture - Final NO GROWTH OBTAINED 01/05/17 06:00 Stool Clostridium difficile Antigen (RUBÉN) - Final 01/05/17 06:00 Stool Clostridium difficile Toxin Assay - Final 12/24/16 15:30 Blood - Peripheral Venous Blood Culture - Final NO GROWTH AFTER 5 DAYS INCUBATION 12/24/16 16:00 Blood - Peripheral Venous Blood Culture - Final NO GROWTH AFTER 5 DAYS INCUBATION 12/22/16 09:00 Blood - Peripheral Venous Blood Culture - Final Brevibacterium Species 12/22/16 09:00 Blood - Peripheral Venous Blood Culture - Final Staphylococcus Aureus Enterococcus Casseliflavus Aerococcus Viridans Imaging: - Stress test: small size, mild intensity reversible defect of inferior wall from base to mid consistent with mild ischemia, LVEF 71% - ECHO 12/23 with normal LV size and function. RV normal size. Mod MR, mild TR Assessment: This is a 61 year old male with PMHx of newly diagnosed a.fib (on Xarelto), CHF, HTN, PAD R>L and venous ulcerations to b/l lower ext, opioid dependence (on methadone for 5 years for heroin) admitted with bilateral wound cellulitis with weeping and A fib with RVR. S/p aorto-bifemoral 12/30/16. Plan: 1) Vascular: PAD with distal aortic occlusion and common and external iliac artery occlusion s/p Aorto-bifemoral Bypass (12/30) - Ana c/d/i, to be removed prior to surgery - Appreciate vascular consult 2) ID: Leukocytosis, tmax 100.4 today - C.diff ag and toxin positive on 01/05 - Repeat cultures sent - Positive c.diff, however denies any diarrhea, last BM yesterday - Remains on po and IV vanco, and flagyl IVPB - CTAP 01/12: postoperative changes related to aortobifemoral graft procedure. No acute pathology within the abdomen or pelvis - Appreciate ID consult 3) Cardiology: Paroxysmal A.fib/a.flutter - Continue Xarelto - Continue Lopressor 50mg po bid as tolerated, monitor HR Chronic Diastolic heart failure - Appreciate cardiology consult Bilateral venous stasis wounds - Daily Silvadene 4) Endocrine: DM - Newly diagnosed - Levemir 5 sq qhs - BGM ACHS 5) Psych: Polysubstance abuse - Continue Methadone 70mg daily 6) F/E/N: - Monitor electrolytes - Regular diet 7) Prophylaxis: - On xarelto - OOB ambulating 8) Dispo: - Once afebrile x24 hours CODE STATUS: FULL CODE Visit type - Emergency Visit Emergency Visit: Yes ED Registration Date: 12/22/16 Care time: The patient presented to the Emergency Department on the above date and was hospitalized for further evaluation of their emergent condition. - New Patient This patient is new to me today: No - Critical Care Critical Care patient: No
[2017-01-13] MEDS: VANCOMYCIN 1,250 MG in DEXTROSE 5%-WATER - 250 ML IVPB SCH (17:05)
[2017-01-13 17:39] LABS: URINE APPEARANCE CLEAR; URINE BILIRUBIN NEGATIVE (NEGATIVE); URINE BLOOD NEGATIVE (NEGATIVE); URINE COLOR DKYELLOW; URINE GLUCOSE (UA) NEGATIVE (NEGATIVE); URINE KETONE NEGATIVE (NEGATIVE); URINE NITRITE NEGATIVE (NEGATIVE); URINE PROTEIN NEGATIVE (NEGATIVE); URINE UROBILINOGEN NEGATIVE E.U./dl (0.2-1.0)
[2017-01-13 17:44] LABS: URINE LEUK ESTERASE TRACE (NEGATIVE)
[2017-01-13 17:47] LABS: URINE MUCUS RARE; URINE RBC 2 /hpf (0-3); URINE WBC 3 /hpf (3-5)
[2017-01-13] MEDS: INSULIN DETEMIR 100 UNITS/ML MDV SQ SCH (21:47)
[2017-01-13] MEDS: diphenhydrAMINE HCL 25 MG CAPSULE (FP) PO SCH (21:47)
[2017-01-13] MEDS: ACETAMINOPHEN 650 MG/20.3 ML ORAL SOLUTION (CUPS) PO PRN (21:55)
[2017-01-14] MEDS: VANCOMYCIN 250 MG/5 ML ORAL SOLUTION PO SCH ×4 (00:59→17:14)
[2017-01-14] MEDS: METRONIDAZOLE 500 MG PREMIXED 100 ML IVPB SCH ×3 (01:00→17:11)
[2017-01-14] MEDS ORDERED: METHADONE HCL 40 MG DISPERSABLE TABLET ONE (05:40)
[2017-01-14] MEDS ORDERED: METHADONE HCL 10 MG TABLET ONE (05:41)
[2017-01-14] MEDS: METHADONE 40 MG, METHADONE 30 MG PO SCH (05:46)
[2017-01-14] MEDS ORDERED: METHADONE HCL 40 MG DISPERSABLE TABLET PO SCH (06:00)
[2017-01-14 06:15] LABS: MCH 29.4 pg (25.7-33.7); MCHC 32.2 g/dl (32.0-35.9); MEAN CELL VOLUME 91.2 fl (80-96); MEAN PLT VOLUME 9.4 fl (7.5-11.1); PLATELET COUNT 241 K/MM3 (134-434); RDW 16.1 % (11.9-15.9); WHITE BLOOD COUNT 13.6 K/mm3 (4.0-10.0)
[2017-01-14] MEDS ORDERED: PT OWN MED DRAWER 7, Y5N ONE ×2 (09:26→17:21)
[2017-01-14] MEDS: METOPROLOL TARTRATE 50 MG TABLET (FP) PO SCH ×2 (09:54→22:23)
[2017-01-14] MEDS: LACTOBACILLUS ACIDOPHILUS 1 EACH TAB (FP) PO SCH (09:54)
[2017-01-14] MEDS: PANTOPRAZOLE 40 MG TABLET (FP) PO SCH (09:55)
[2017-01-14] MEDS: RIVAROXABAN 20 MG TABLET PO SCH (09:55)
[2017-01-14] MEDS: SILVER SULFADIAZINE 1% TOP CREAM 50 GM JAR TP SCH (10:03)
--- NOTE | 2017-01-14 10:27 | PN ---
Physical Exam: SUBJECTIVE: Patient seen and examined. He denies any shortness of breath or discomfort. Patient states he will follow up with the methadone clinic @ [facility] and will need a medical van on d/c. States his stools have been solid for the last 4 days, denies diarrhea. OBJECTIVE: Patient was able to tolerate physical therapy today Will need home oxygen for dyspnea with ambulation Started patient home dose of Lasix 40mg today Abdominal ana to be removed by surgery WBC trending down Vital Signs Period Temp Pulse Resp BP Sys/Chatterjee Pulse Ox Last 24 Hr 98 F-98.9 F 47-65 20-20 101-132/42-77 97-97 GENERAL: The patient is awake, alert, and fully oriented, in no acute distress. HEAD: Normal with no signs of trauma. NECK: Trachea midline, full range of motion, supple. LUNGS: Breath sounds equal, diminished/clear to auscultation bilaterally, no wheezes, no crackles, no accessory muscle use. HEART: sinus bradycardia 40s to 50s on wellness specialist ABDOMEN: s/p aorta fem bypass, abdomen slightly distended, + ana - ana to be removed prior to discharge NEUROLOGICAL: Normal speech, gait not observed. PSYCH: Normal mood, normal affect. Laboratory Results - last 24 hr 01/13/17 01/13/17 01/14/17 16:45 21:45 05:35 WBC 13.6 H RBC 3.33 L Hgb 9.8 L Hct 30.4 L MCV 91.2 MCHC 32.2 RDW 16.1 H Plt Count 241 MPV 9.4 POC Glucometer 131 Urine Color Dkyellow Urine Appearance Clear Urine pH 6.0 Ur Specific [place] 1.010 Urine Protein Negative Urine Glucose (UA) Negative Urine Ketones Negative Urine Blood Negative Urine Nitrite Negative Urine Bilirubin Negative Urine Urobilinogen Negative Ur Leukocyte Esterase Trace H Urine RBC 2 Urine WBC 3 Ur Epithelial Cells Rare Urine Mucus Rare Active Medications Generic Name Dose Route Start Last Admin Trade Name Freq PRN Reason Stop Dose Admin Acetaminophen 650 mg 01/02/17 18:04 01/13/17 21:55 Tylenol Oral Solution - PO 650 mg Q6H PRN Administration FEVER OR PAIN Albuterol/Ipratropium 1 amp 12/31/16 13:34 01/01/17 20:25 Duoneb - NEB 1 amp Q6H PRN Administration SHORTNESS OF BREATH Diphenhydramine HCl 25 mg 12/30/16 22:00 01/13/17 21:47 Benadryl - PO 25 mg HS [facility] Administration Vancomycin HCl 1,250 mg/ 250 mls @ 166.667 mls/hr 01/08/17 16:00 01/13/17 17:05 Dextrose IVPB 166.667 mls/hr DAILY@1600 [facility] Administration Protocol Metronidazole 100 mls @ 100 mls/hr 01/12/17 23:30 01/14/17 09:54 Flagyl 500mg Premixed Ivpb - IVPB 100 mls/hr Q8H-IV [facility] Administration Insulin Detemir 5 units 01/08/17 22:00 01/13/17 21:47 Levemir Vial SQ 5 units HS [facility] Administration Lactobacillus Acidophilus 1 tab 01/06/17 15:30 01/14/17 09:54 Bacid - PO 1 tab DAILY [facility] Administration Methadone HCl 40 mg/ Methadone 70 mg 01/14/17 06:00 01/14/17 05:46 HCl 30 mg PO 70 mg DAILY@0600 [facility] Administration Metoprolol Tartrate 50 mg 01/10/17 22:00 01/14/17 09:54 Lopressor - PO 50 mg BID [facility] Administration Pantoprazole Sodium 40 mg 01/03/17 10:00 01/14/17 09:55 Protonix - PO 40 mg DAILY [facility] Administration Rivaroxaban 20 mg 12/31/16 10:00 01/14/17 09:55 Xarelto - PO 20 mg DAILY [facility] Administration Silver Sulfadiazine 1 applic 12/31/16 10:00 01/14/17 10:03 Silvadene - TP 1 applic DAILY [facility] Administration Sodium Chloride 2 spray 01/01/17 17:07 01/02/17 18:12 [place] Nasal [place] - NS 2 spray BID PRN Administration NASAL CONGESTION Vancomycin HCl 125 mg 01/08/17 12:00 01/14/17 05:46 Vancomycin Oral Solution PO 125 mg Q6HPO [facility] Administration ASSESSMENT/PLAN: Patient is a 61 year old male with significant past medical history of of newly diagnosed atrial fibrillation (on Xarelto), CHF, HTN, PAD, and venous ulcerations on bilateral lower extremities, opioid dependence (on methadone). He was admitted on 12/22/2016 with bilateral wound cellulitis with weeping and A fib with RVR. On 12/30/2016 he underwent a Aorto-bifemoral bypass. He is s/p ICU monitoring x 14 days. Vascular: PAD with distal aorta and external iliac occlusion - resolved Assessment/Plan: s/p aorto-bifemoral bypass on 12/30/16 bilateral foot pulses warm to touch, denies pain or discomfort No abdominal pain, ana removed by surgery OOB to chair as tolerated, ambulated with physical therapy Bilateral venous stasis wounds - improving Assessment/Plan: On going wound care with Silvadene Vascular following ID: Leukocytosis - likely secondary to + cdiff, but WBC now trending down Patient states he is having solid stools, denies abdominal pain Assessment/Plan: On PO vanco, Vancomycin IV daily and Flagyl IV ID following Cardiology: Afib with RVR - now in sinus rhythm/sinus bradycardia Assessment/Plan: Continue Xarelto 20mg daily, Lopressor 50mg BID Amiodorone stopped secondary to bradycardia Patient remains asymptomatic Started on home dose of Lasix 40mg daily Cardiology following Endocrine: Diabetes mellitus - new diagnosis Assessment/Plan: monitor BGMs, sliding scale [id number] 8.6, Metformin on discharge Psyche: Polysubstance abuse Assessment/Plan: Methadone 70mg daily Morphine 4mg IV prn for breakthrough pain F.E.N. Fluids: tolerating PO Electrolytes: monitor BMP Nutrition: diabetic diet Prophylaxis: DVT: On Xarelto 20mg daily GI: Protonix 40mg daily Needs ongoing physical therapy - Anticipate d/c tomorrow with [facility]NS Disposition: Full Code. Discharge planning once cleared by ID. Visit type - Emergency Visit Emergency Visit: Yes ED Registration Date: 12/22/16 Care time: The patient presented to the Emergency Department on the above date and was hospitalized for further evaluation of their emergent condition. - New Patient This patient is new to me today: No - Critical Care Critical Care patient: No - Discharge Referral Referred to [facility] Med [facility] No
--- NOTE | 2017-01-14 11:56 | PN ---
Progress Note, Physician History of Present Illness: Remains in sinus rhythm off amio, denies chest pain or dyspnea. Diarrhea and leukocytosis resolved on oral vanco and flagyl, denies fevers or abd pain. Abd& pelvic CT-Negative. - Current Medication List Current Medications: Active Medications Acetaminophen (Tylenol Oral Solution -) 650 mg PO Q6H PRN PRN Reason: FEVER OR PAIN Last Admin: 01/13/17 21:55 Dose: 650 mg Albuterol/Ipratropium (Duoneb -) 1 amp NEB Q6H PRN PRN Reason: SHORTNESS OF BREATH Last Admin: 01/01/17 20:25 Dose: 1 amp Diphenhydramine HCl (Benadryl -) 25 mg PO HS [facility] Last Admin: 01/13/17 21:47 Dose: 25 mg Vancomycin HCl 1,250 mg/ (Dextrose) 250 mls @ 166.667 mls/hr IVPB DAILY@1600 [facility] PRN Reason: Protocol Last Admin: 01/13/17 17:05 Dose: 166.667 mls/hr Metronidazole (Flagyl 500mg Premixed Ivpb -) 100 mls @ 100 mls/hr IVPB Q8H-IV [facility] Last Admin: 01/14/17 09:54 Dose: 100 mls/hr Insulin Detemir (Levemir Vial) 5 units SQ HS [facility] Last Admin: 01/13/17 21:47 Dose: 5 units Lactobacillus Acidophilus (Bacid -) 1 tab PO DAILY [facility] Last Admin: 01/14/17 09:54 Dose: 1 tab Methadone HCl 40 mg/ Methadone (HCl 30 mg) 70 mg PO DAILY@0600 [facility] Last Admin: 01/14/17 05:46 Dose: 70 mg Metoprolol Tartrate (Lopressor -) 50 mg PO BID [facility] Last Admin: 01/14/17 09:54 Dose: 50 mg Pantoprazole Sodium (Protonix -) 40 mg PO DAILY [facility] Last Admin: 01/14/17 09:55 Dose: 40 mg Rivaroxaban (Xarelto -) 20 mg PO DAILY [facility] Last Admin: 01/14/17 09:55 Dose: 20 mg Silver Sulfadiazine (Silvadene -) 1 applic TP DAILY [facility] Last Admin: 01/14/17 10:03 Dose: 1 applic Sodium Chloride ([place] Nasal [place] -) 2 spray NS BID PRN PRN Reason: NASAL CONGESTION Last Admin: 01/02/17 18:12 Dose: 2 spray Vancomycin HCl (Vancomycin Oral Solution) 125 mg PO Q6HPO [facility] Last Admin: 01/14/17 05:46 Dose: 125 mg - Objective Vital Signs: Vital Signs Temperature 98.7 F 01/14/17 10:00 Pulse Rate 59 L 01/14/17 10:00 Respiratory Rate 20 01/14/17 10:00 Blood Pressure 106/65 01/14/17 10:00 O2 Sat by Pulse Oximetry (%) 96 01/14/17 09:00 Constitutional: Yes: No Distress, Calm Neck: Yes: Supple Cardiovascular: Yes: Bradycardia Respiratory: Yes: Regular, Diminished Gastrointestinal: Yes: Normal Bowel Sounds, Soft Edema: Yes Edema: LLE: 1+, RLE: 1+ Labs: CBC, BMP 01/14/17 05:35 01/13/17 05:35 INR, PTT INR 1.59 (0.82-1.09) H D 01/04/17 05:30 - ....Imaging EKG: Report Reviewed (Tele: SR) Problem List - Problems (1) Methadone dependence Code(s): F11.20 - OPIOID DEPENDENCE, UNCOMPLICATED (2) PAD (peripheral artery disease) Code(s): I73.9 - PERIPHERAL VASCULAR DISEASE, UNSPECIFIED (3) Substance abuse Code(s): F19.10 - OTHER PSYCHOACTIVE SUBSTANCE ABUSE, UNCOMPLICATED (4) Diastolic dysfunction Code(s): I51.9 - HEART DISEASE, UNSPECIFIED (5) S/P aorto-bifemoral bypass surgery Code(s): Z95.828 - PRESENCE OF OTHER VASCULAR IMPLANTS AND GRAFTS (6) Paroxysmal atrial fibrillation Code(s): I48.0 - PAROXYSMAL ATRIAL FIBRILLATION (7) Clostridium difficile diarrhea Code(s): A04.7 - ENTEROCOLITIS DUE TO CLOSTRIDIUM DIFFICILE (8) Leukocytosis Code(s): D72.829 - ELEVATED WHITE BLOOD CELL COUNT, UNSPECIFIED Qualifiers: Leukocytosis type: unspecified Qualified Code(s): D72.829 - Elevated white blood cell count, unspecified Assessment/Plan 1. Paroxysmal atrial fibrillation/atrial flutter->sinus rhythm [id number] score of 2 on NOAC 2. CAD angina pectoris 3. LV diastolic dysfunction with chronic class 0-I NYHA classification LV failure, compensated 4. PAD with distal aortic occlusion and common and external iliac artery occlusion s/p Aorto-bifemoral Bypass (12/30) 5. Bilateral lower extremity ulcer/cellulitis 6. History of non-compliance 7. COPD - smoker 8. C. difficile with leukocytosis PLAN: 1. Continue Xarelto 20 mg once a day 2. Continue Lopressor 50 bid as tolerated and monitor HR 3. Complete antibiotic coverage 5. PT and encourage mobilization, d/c planning with f/u in office as outpatient
--- NOTE | 2017-01-14 15:11 | PN ---
Progress Note, Physician History of Present Illness: doing much better no new issues - Current Medication List Current Medications: Active Medications Acetaminophen (Tylenol Oral Solution -) 650 mg PO Q6H PRN PRN Reason: FEVER OR PAIN Last Admin: 01/13/17 21:55 Dose: 650 mg Albuterol/Ipratropium (Duoneb -) 1 amp NEB Q6H PRN PRN Reason: SHORTNESS OF BREATH Last Admin: 01/01/17 20:25 Dose: 1 amp Diphenhydramine HCl (Benadryl -) 25 mg PO HS [facility] Last Admin: 01/13/17 21:47 Dose: 25 mg Furosemide (Lasix -) 40 mg PO DAILY [facility] Metronidazole (Flagyl 500mg Premixed Ivpb -) 100 mls @ 100 mls/hr IVPB Q8H-IV [facility] Last Admin: 01/14/17 09:54 Dose: 100 mls/hr Insulin Detemir (Levemir Vial) 5 units SQ [facility] Last Admin: 01/13/17 21:47 Dose: 5 units Lactobacillus Acidophilus (Bacid -) 1 tab PO DAILY [facility] Last Admin: 01/14/17 09:54 Dose: 1 tab Methadone HCl 40 mg/ Methadone (HCl 30 mg) 70 mg PO DAILY@0600 [facility] Last Admin: 01/14/17 05:46 Dose: 70 mg Metoprolol Tartrate (Lopressor -) 50 mg PO BID [facility] Last Admin: 01/14/17 09:54 Dose: 50 mg Pantoprazole Sodium (Protonix -) 40 mg PO DAILY [facility] Last Admin: 01/14/17 09:55 Dose: 40 mg Rivaroxaban (Xarelto -) 20 mg PO DAILY [facility] Last Admin: 01/14/17 09:55 Dose: 20 mg Silver Sulfadiazine (Silvadene -) 1 applic TP DAILY [facility] Last Admin: 01/14/17 10:03 Dose: 1 applic Sodium Chloride ([place] Nasal [place] -) 2 spray NS BID PRN PRN Reason: NASAL CONGESTION Last Admin: 01/02/17 18:12 Dose: 2 spray Vancomycin HCl (Vancomycin Oral Solution) 125 mg PO Q6HPO [facility] Last Admin: 01/14/17 12:35 Dose: 125 mg - Objective Vital Signs: Vital Signs Temperature 98.7 F 01/14/17 10:00 Pulse Rate 91 H 01/14/17 12:25 Respiratory Rate 20 05/18/17 10:00 Blood Pressure 106/65 01/14/17 10:00 O2 Sat by Pulse Oximetry (%) 74 L 01/14/17 12:25 Constitutional: Yes: No Distress, Calm Cardiovascular: Yes: Regular Rate and Rhythm Respiratory: Yes: Regular, CTA Bilaterally Gastrointestinal: Yes: Normal Bowel Sounds, Soft Musculoskeletal: Yes: Other Extremities: Yes: Other Wound/Incision: Yes: Clean/Dry Neurological: Yes: Alert, Oriented Psychiatric: Yes: Alert, Oriented Labs: CBC, BMP 01/14/17 05:35 01/13/17 05:35 INR, PTT INR 1.59 (0.82-1.09) H D 01/04/17 05:30 Assessment/Plan - Problems (1) Atrial fibrillation with rapid ventricular response Code(s): I48.91 - UNSPECIFIED ATRIAL FIBRILLATION (2) Cellulitis Code(s): L03.90 - CELLULITIS, UNSPECIFIED Qualifiers: Site of cellulitis of extremity: lower extremity Laterality: unspecified laterality (3) Methadone dependence Code(s): F11.20 - OPIOID DEPENDENCE, UNCOMPLICATED (4) PAD (peripheral artery disease) Code(s): I73.9 - PERIPHERAL VASCULAR DISEASE, UNSPECIFIED (5) Substance abuse Code(s): F19.10 - OTHER PSYCHOACTIVE SUBSTANCE ABUSE, UNCOMPLICATED (6) Diastolic dysfunction Code(s): I51.9 - HEART DISEASE, UNSPECIFIED cdiff wound infection wbc has improved plan stopped vanco iv continue oral vanco iv flagyl will watch what is the wbc tomorrow then make final decision
--- NOTE | 2017-01-14 15:26 | PN ---
Progress Note (short form) - Note Progress Note: Overall appears better. Reported Saturation appears skewed. When rechecked -> saturation 97% on 3 L NC at rest. No CP or SOB. Intake & Output 01/11/17 01/12/17 01/13/17 01/14/17 23:59 23:59 23:59 23:59 Intake Total 1210 730 650 100 Output Total 350 Balance 1210 730 300 100 Weight 202 lb 4 oz 202 lb 199 lb 2 oz Last Vital Signs Temp Pulse Resp BP Pulse Ox 98.0 F 63 20 119/73 74 L 01/14/17 15:14 01/14/17 15:14 01/14/17 15:14 01/14/17 15:14 01/14/17 12:25 Active Medications Acetaminophen (Tylenol Oral Solution -) 650 mg PO Q6H PRN PRN Reason: FEVER OR PAIN Last Admin: 01/13/17 21:55 Dose: 650 mg Albuterol/Ipratropium (Duoneb -) 1 amp NEB Q6H PRN PRN Reason: SHORTNESS OF BREATH Last Admin: 01/01/17 20:25 Dose: 1 amp Diphenhydramine HCl (Benadryl -) 25 mg PO HS [facility] Last Admin: 01/13/17 21:47 Dose: 25 mg Furosemide (Lasix -) 40 mg PO DAILY [facility] Metronidazole (Flagyl 500mg Premixed Ivpb -) 100 mls @ 100 mls/hr IVPB Q8H-IV [facility] Last Admin: 01/14/17 09:54 Dose: 100 mls/hr Insulin Detemir (Levemir Vial) 5 units SQ HS [facility] Last Admin: 01/13/17 21:47 Dose: 5 units Lactobacillus Acidophilus (Bacid -) 1 tab PO DAILY [facility] Last Admin: 01/14/17 09:54 Dose: 1 tab Methadone HCl 40 mg/ Methadone (HCl 30 mg) 70 mg PO DAILY@0600 [facility] Last Admin: 01/14/17 05:46 Dose: 70 mg Metoprolol Tartrate (Lopressor -) 50 mg PO BID [facility] Last Admin: 01/14/17 09:54 Dose: 50 mg Pantoprazole Sodium (Protonix -) 40 mg PO DAILY [facility] Last Admin: 01/14/17 09:55 Dose: 40 mg Rivaroxaban (Xarelto -) 20 mg PO DAILY [facility] Last Admin: 01/14/17 09:55 Dose: 20 mg Silver Sulfadiazine (Silvadene -) 1 applic TP DAILY [facility] Last Admin: 01/14/17 10:03 Dose: 1 applic Sodium Chloride ([place] Nasal [place] -) 2 spray NS BID PRN PRN Reason: NASAL CONGESTION Last Admin: 01/02/17 18:12 Dose: 2 spray Vancomycin HCl (Vancomycin Oral Solution) 125 mg PO Q6HPO [facility] Last Admin: 01/14/17 12:35 Dose: 125 mg Gen: NAD at rest Heart: RRR Lung: diminished BS at the bases, few scattered rhonchi Abd: soft, nontender Ext: + less edema Laboratory Results - last 24 hr 01/13/17 01/13/17 01/14/17 16:45 21:45 05:35 WBC 13.6 H RBC 3.33 L Hgb 9.8 L Hct 30.4 L MCV 91.2 MCHC 32.2 RDW 16.1 H Plt Count 241 MPV 9.4 POC Glucometer 131 Urine Color Dkyellow Urine Appearance Clear Urine pH 6.0 Ur Specific [place] 1.010 Urine Protein Negative Urine Glucose (UA) Negative Urine Ketones Negative Urine Blood Negative Urine Nitrite Negative Urine Bilirubin Negative Urine Urobilinogen Negative Ur Leukocyte Esterase Trace H Urine RBC 2 Urine WBC 3 Ur Epithelial Cells Rare Urine Mucus Rare A/P s/p Aorto-bifemoral Bypass 5/ Paroxysmal Atrial Fibrillation with RVR PAD LE Ulcers/Cellulitis LV Diastolic Dysfunction COPD Smoker - metoprolol/amiodarone - AC - ABX per ID - incentive spirometry - inhaled bronchodilators - OOB to chair - O2 at 3 L NC upon discharge for home use Dr Smith
--- NOTE | 2017-01-14 15:37 | PN ---
Progress Note (short form) - Note Progress Note: Vascular Surgery- Dr. Cunningham Patient seen for staple removal. Patient states he is feeling well and has no complaints. Last Vital Signs Temp Pulse Resp BP Pulse Ox 98.0 F 63 20 119/73 74 L 01/14/17 15:14 01/14/17 15:14 01/14/17 15:14 01/14/17 15:14 01/14/17 12:25 Exam: Abdomen/Groin: [place] removed without issue, patient tolerated well, incisions c/d/i LE warm A/P s/p Aorto-bifemoral bypass 12/30/16 Patient to be discharged per medicine, ana removed prior to discharge Problem List - Problems (1) S/P aorto-bifemoral bypass surgery Code(s): Z95.828 - PRESENCE OF OTHER VASCULAR IMPLANTS AND GRAFTS
[2017-01-14] MEDS: FUROSEMIDE 40 MG TABLET (FP) PO SCH (15:50)
--- NOTE | 2017-01-14 16:02 | PN ---
Physical Exam: SUBJECTIVE: Patient seen and examined OBJECTIVE: Vital Signs Period Temp Pulse Resp BP Sys/Chatterjee Pulse Ox Last 24 Hr 98 F-98.7 F 47-91 20-20 106-132/42-77 74-97 GENERAL: The patient is awake, alert, and fully oriented, in no acute distress. HEAD: Normal with no signs of trauma. EYES: PERRL, extraocular movements intact, sclera anicteric, conjunctiva clear. No ptosis. ENT: Ears normal, nares patent, oropharynx clear without exudates, moist mucous membranes. NECK: Trachea midline, full range of motion, supple. LUNGS: Breath sounds equal, clear to auscultation bilaterally, no wheezes, no crackles, no accessory muscle use. HEART: Regular rate and rhythm, S1, S2 without murmur, rub or gallop. ABDOMEN: Soft, nontender, nondistended, normoactive bowel sounds, no guarding, no rebound, no hepatosplenomegaly, no masses. EXTREMITIES: 2+ pulses, warm, well-perfused, no edema. NEUROLOGICAL: Cranial nerves II through XII grossly intact. Normal speech, gait not observed. PSYCH: Normal mood, normal affect. SKIN: Warm, dry, normal turgor, no rashes or lesions noted Laboratory Results - last 24 hr 01/13/17 01/13/17 01/14/17 16:45 21:45 05:35 WBC 13.6 H RBC 3.33 L Hgb 9.8 L Hct 30.4 L MCV 91.2 MCHC 32.2 RDW 16.1 H Plt Count 241 MPV 9.4 POC Glucometer 131 Urine Color Dkyellow Urine Appearance Clear Urine pH 6.0 Ur Specific [place] 1.010 Urine Protein Negative Urine Glucose (UA) Negative Urine Ketones Negative Urine Blood Negative Urine Nitrite Negative Urine Bilirubin Negative Urine Urobilinogen Negative Ur Leukocyte Esterase Trace H Urine RBC 2 Urine WBC 3 Ur Epithelial Cells Rare Urine Mucus Rare Active Medications Generic Name Dose Route Start Last Admin Trade Name Freq PRN Reason Stop Dose Admin Acetaminophen 650 mg 01/02/17 18:04 01/13/17 21:55 Tylenol Oral Solution - PO 650 mg Q6H PRN Administration FEVER OR PAIN Albuterol/Ipratropium 1 amp 12/31/16 13:34 01/01/17 20:25 Duoneb - NEB 1 amp Q6H PRN Administration SHORTNESS OF BREATH Diphenhydramine HCl 25 mg 12/30/16 22:00 01/13/17 21:47 Benadryl - PO 25 mg HS [facility] Administration Furosemide 40 mg 01/14/17 14:45 01/14/17 15:50 Lasix - PO 40 mg DAILY [facility] Administration Metronidazole 100 mls @ 100 mls/hr 01/12/17 23:30 01/14/17 09:54 Flagyl 500mg Premixed Ivpb - IVPB 100 mls/hr Q8H-IV [facility] Administration Insulin Detemir 5 units 01/08/17 22:00 01/13/17 21:47 Levemir Vial SQ 5 units HS [facility] Administration Lactobacillus Acidophilus 1 tab 01/06/17 15:30 01/14/17 09:54 Bacid - PO 1 tab DAILY [facility] Administration Methadone HCl 40 mg/ Methadone 70 mg 01/14/17 06:00 01/14/17 05:46 HCl 30 mg PO 70 mg DAILY@0600 [facility] Administration Metoprolol Tartrate 50 mg 01/10/17 22:00 01/14/17 09:54 Lopressor - PO 50 mg BID [facility] Administration Pantoprazole Sodium 40 mg 01/03/17 10:00 01/14/17 09:55 Protonix - PO 40 mg DAILY [facility] Administration Rivaroxaban 20 mg 12/31/16 10:00 01/14/17 09:55 Xarelto - PO 20 mg DAILY [facility] Administration Silver Sulfadiazine 1 applic 12/31/16 10:00 01/14/17 10:03 Silvadene - TP 1 applic DAILY [facility] Administration Sodium Chloride 2 spray 01/01/17 17:07 01/02/17 18:12 [place] Nasal [place] - NS 2 spray BID PRN Administration NASAL CONGESTION Vancomycin HCl 125 mg 01/08/17 12:00 01/14/17 12:35 Vancomycin Oral Solution PO 125 mg Q6HPO [facility] Administration ASSESSMENT/PLAN:
[2017-01-14] MEDS: diphenhydrAMINE HCL 25 MG CAPSULE (FP) PO SCH (22:23)
[2017-01-14] MEDS: INSULIN DETEMIR 100 UNITS/ML MDV SQ SCH (22:23)
[2017-01-15] MEDS: VANCOMYCIN 250 MG/5 ML ORAL SOLUTION PO SCH ×5 (01:01→23:11)
[2017-01-15] MEDS: METRONIDAZOLE 500 MG PREMIXED 100 ML IVPB SCH ×3 (01:05→17:46)
[2017-01-15] MEDS ORDERED: METHADONE HCL 40 MG DISPERSABLE TABLET ONE (06:09)
[2017-01-15] MEDS ORDERED: METHADONE HCL 10 MG TABLET ONE (06:10)
[2017-01-15 07:05] LABS: BASOPHIL 0.5 % (0-2.0); EOSINOPHIL 2.7 % (0-4.5); MCH 30.1 pg (25.7-33.7); MEAN CELL VOLUME 91.1 fl (80-96); MEAN PLT VOLUME 9.4 fl (7.5-11.1); NEUTROPHILS 75.9 % (42.8-82.8); PLATELET COUNT 214 K/MM3 (134-434); WHITE BLOOD COUNT 12.3 K/mm3 (4.0-10.0)
[2017-01-15] MEDS ORDERED: INSULIN DETEMIR 100 UNITS/ML MDV SQ ONE (07:07)
[2017-01-15] MEDS: METHADONE 40 MG, METHADONE 30 MG PO SCH (07:09)
[2017-01-15 07:36] LABS: ALBUMIN 2.2 g/dl (3.4-5.0); ANION GAP 8 (8-16); CALCIUM 7.8 mg/dL (8.5-10.1); CO2 32 mmol/L (21-32); GLUCOSE,RANDOM 87 mg/dL (74-106)
[2017-01-15 07:39] LABS: ALK PHOS 123 U/L (45-117); BILIRUBIN,TOTAL 0.3 mg/dL (0.2-1.0); COCKROFT - GAULT 82.58; CREATININE 1.2 mg/dL (0.7-1.3); SGOT/AST 17 U/L (15-37); SGPT/ALT 17 U/L (12-78); TOT PROT 4.5 g/dl (6.4-8.2)
[2017-01-15] MEDS: FUROSEMIDE 40 MG TABLET (FP) PO SCH (09:14)
[2017-01-15] MEDS: METOPROLOL TARTRATE 50 MG TABLET (FP) PO SCH ×2 (09:14→21:51)
[2017-01-15] MEDS: PANTOPRAZOLE 40 MG TABLET (FP) PO SCH (09:14)
[2017-01-15] MEDS: LACTOBACILLUS ACIDOPHILUS 1 EACH TAB (FP) PO SCH (09:14)
--- NOTE | 2017-01-15 11:32 | PN ---
Progress Note, Physician History of Present Illness: patient doing well no new issues says he is feeling much better - Current Medication List Current Medications: Active Medications Acetaminophen (Tylenol Oral Solution -) 650 mg PO Q6H PRN PRN Reason: FEVER OR PAIN Last Admin: 01/13/17 21:55 Dose: 650 mg Albuterol/Ipratropium (Duoneb -) 1 amp NEB Q6H PRN PRN Reason: SHORTNESS OF BREATH Last Admin: 01/01/17 20:25 Dose: 1 amp Diphenhydramine HCl (Benadryl -) [address] [facility] Last Admin: 01/14/17 22:23 Dose: 25 mg Furosemide (Lasix -) [address] [facility] Last Admin: 01/15/17 09:14 Dose: 40 mg Metronidazole (Flagyl 500mg Premixed Ivpb -) 100 mls @ 100 mls/hr IVPB Q8H-IV [facility] Last Admin: 01/15/17 09:14 Dose: 100 mls/hr Insulin Detemir (Levemir Vial) 5 units SQ [facility] Last Admin: 01/14/17 22:23 Dose: 5 units Lactobacillus Acidophilus (Bacid -) [address] [facility] Last Admin: 01/15/17 09:14 Dose: 1 tab Methadone HCl 40 mg/ Methadone (HCl 30 mg) 70 mg PO DAILY@0600 [facility] Last Admin: 01/15/17 07:09 Dose: 70 mg Metoprolol Tartrate (Lopressor -) [address] [facility] Last Admin: 01/15/17 09:14 Dose: 50 mg Pantoprazole Sodium (Protonix -) [address] [facility] Last Admin: 01/15/17 09:14 Dose: 40 mg Rivaroxaban (Xarelto -) [address] [facility] Last Admin: 01/14/17 09:55 Dose: 20 mg Silver Sulfadiazine (Silvadene -) [address] [facility] Last Admin: 01/14/17 10:03 Dose: 1 applic Sodium Chloride ([place] Nasal [place] -) 2 spray NS BID PRN PRN Reason: NASAL CONGESTION Last Admin: 01/02/17 18:12 Dose: 2 spray Vancomycin HCl (Vancomycin Oral Solution) [address] [facility] Last Admin: 01/15/17 06:13 Dose: 125 mg - Objective Vital Signs: Vital Signs Temperature 98.9 F 01/15/17 10:00 Pulse Rate 59 L 01/15/17 10:00 Respiratory Rate 20 01/15/17 10:00 Blood Pressure 103/67 01/15/17 10:00 O2 Sat by Pulse Oximetry (%) 96 01/15/17 09:00 Constitutional: Yes: No Distress, Calm Cardiovascular: Yes: Regular Rate and Rhythm Respiratory: Yes: Regular, CTA Bilaterally Gastrointestinal: Yes: Normal Bowel Sounds, Soft Musculoskeletal: Yes: Other Extremities: Yes: Other Integumentary: Yes: Other Wound/Incision: Yes: Other (leg wounds are healing nicely abd post op wound is good) Neurological: Yes: Alert, Oriented Psychiatric: Yes: Alert, Oriented Labs: CBC, BMP 01/15/17 05:35 01/15/17 05:35 INR, PTT INR 1.59 (0.82-1.09) H D 01/04/17 05:30 Assessment/Plan - Problems (1) Atrial fibrillation with rapid ventricular response Code(s): I48.91 - UNSPECIFIED ATRIAL FIBRILLATION (2) Cellulitis Code(s): L03.90 - CELLULITIS, UNSPECIFIED Qualifiers: Site of cellulitis of extremity: lower extremity Laterality: unspecified laterality (3) Methadone dependence Code(s): F11.20 - OPIOID DEPENDENCE, UNCOMPLICATED (4) PAD (peripheral artery disease) Code(s): I73.9 - PERIPHERAL VASCULAR DISEASE, UNSPECIFIED (5) Substance abuse Code(s): F19.10 - OTHER PSYCHOACTIVE SUBSTANCE ABUSE, UNCOMPLICATED (6) Diastolic dysfunction Code(s): I51.9 - HEART DISEASE, UNSPECIFIED cdiff wound infection wbc has improved plan continue current mgmt patient can go home on vanco 125mg 4 times for another 10 days wound care if patient stays in the hospital please continue flagyl iv untill patient is discharged
[2017-01-15] MEDS: SILVER SULFADIAZINE 1% TOP CREAM 50 GM JAR TP SCH (12:39)
--- NOTE | 2017-01-15 12:40 | PN ---
Progress Note, Physician History of Present Illness: Remains in sinus rhythm off amio, denies chest pain or dyspnea. Diarrhea and leukocytosis resolved on oral vanco and flagyl, denies fevers or abd pain. - Current Medication List Current Medications: Active Medications Acetaminophen (Tylenol Oral Solution -) 650 mg PO Q6H PRN PRN Reason: FEVER OR PAIN Last Admin: 01/13/17 21:55 Dose: 650 mg Albuterol/Ipratropium (Duoneb -) 1 amp NEB Q6H PRN PRN Reason: SHORTNESS OF BREATH Last Admin: 01/01/17 20:25 Dose: 1 amp Diphenhydramine HCl (Benadryl -) 25 mg PO HS [facility] Last Admin: 01/14/17 22:23 Dose: 25 mg Furosemide (Lasix -) 40 mg PO DAILY [facility] Last Admin: 01/15/17 09:14 Dose: 40 mg Metronidazole (Flagyl 500mg Premixed Ivpb -) 100 mls @ 100 mls/hr IVPB Q8H-IV [facility] Last Admin: 01/15/17 09:14 Dose: 100 mls/hr Insulin Detemir (Levemir Vial) 5 units SQ HS [facility] Last Admin: 01/14/17 22:23 Dose: 5 units Lactobacillus Acidophilus (Bacid -) 1 tab PO DAILY [facility] Last Admin: 01/15/17 09:14 Dose: 1 tab Methadone HCl 40 mg/ Methadone (HCl 30 mg) 70 mg PO DAILY@0600 [facility] Last Admin: 01/15/17 07:09 Dose: 70 mg Metoprolol Tartrate (Lopressor -) 50 mg PO BID [facility] Last Admin: 01/15/17 09:14 Dose: 50 mg Pantoprazole Sodium (Protonix -) 40 mg PO DAILY [facility] Last Admin: 01/15/17 09:14 Dose: 40 mg Rivaroxaban (Xarelto -) 20 mg PO DAILY [facility] Last Admin: 01/14/17 09:55 Dose: 20 mg Silver Sulfadiazine (Silvadene -) 1 applic TP DAILY [facility] Last Admin: 01/15/17 12:39 Dose: 1 applic Sodium Chloride ([place] Nasal [place] -) 2 spray NS BID PRN PRN Reason: NASAL CONGESTION Last Admin: 01/02/17 18:12 Dose: 2 spray Vancomycin HCl (Vancomycin Oral Solution) 125 mg PO Q6HPO [facility] Last Admin: 01/15/17 12:39 Dose: 125 mg - Objective Vital Signs: Vital Signs Temperature 98.9 F 01/15/17 10:00 Pulse Rate 84 01/15/17 11:41 Respiratory Rate 20 01/15/17 10:00 Blood Pressure 103/67 01/15/17 10:00 O2 Sat by Pulse Oximetry (%) 97 01/15/17 11:41 Constitutional: Yes: No Distress, Calm Neck: Yes: Supple Cardiovascular: Yes: Regular Rate and Rhythm Respiratory: Yes: Regular, Diminished, On Nasal O2 Gastrointestinal: Yes: Normal Bowel Sounds, Soft Edema: Yes Edema: LLE: Trace, RLE: Trace Labs: CBC, BMP 01/15/17 05:35 01/15/17 05:35 INR, PTT INR 1.59 (0.82-1.09) H D 01/04/17 05:30 - ....Imaging EKG: Report Reviewed (Tele: SR) Problem List - Problems (1) Methadone dependence Code(s): F11.20 - OPIOID DEPENDENCE, UNCOMPLICATED (2) PAD (peripheral artery disease) Code(s): I73.9 - PERIPHERAL VASCULAR DISEASE, UNSPECIFIED (3) Substance abuse Code(s): F19.10 - OTHER PSYCHOACTIVE SUBSTANCE ABUSE, UNCOMPLICATED (4) Diastolic dysfunction Code(s): I51.9 - HEART DISEASE, UNSPECIFIED (5) S/P aorto-bifemoral bypass surgery Code(s): Z95.828 - PRESENCE OF OTHER VASCULAR IMPLANTS AND GRAFTS (6) Paroxysmal atrial fibrillation Code(s): I48.0 - PAROXYSMAL ATRIAL FIBRILLATION (7) Clostridium difficile diarrhea Code(s): A04.7 - ENTEROCOLITIS DUE TO CLOSTRIDIUM DIFFICILE (8) Leukocytosis Code(s): D72.829 - ELEVATED WHITE BLOOD CELL COUNT, UNSPECIFIED Qualifiers: Leukocytosis type: unspecified Qualified Code(s): D72.829 - Elevated white blood cell count, unspecified Assessment/Plan 1. Paroxysmal atrial fibrillation/atrial flutter->sinus rhythm [id number] score of 2 on NOAC 2. CAD angina pectoris 3. LV diastolic dysfunction with chronic class 0-I NYHA classification LV failure, compensated 4. 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 Bilateral lower extremity ulcer/cellulitis 6. History of non-compliance 7. COPD - smoker 8. C. difficile with leukocytosis resolved PLAN: 1. Continue Xarelto 20 mg once a day 2. Continue Lopressor 50 bid as tolerated and monitor HR 3. Complete antibiotic coverage 5. PT and encourage mobilization, d/c planning with f/u in office 01/26 12:00 PM
[2017-01-15] MEDS: RIVAROXABAN 20 MG TABLET PO SCH (13:37)
--- NOTE | 2017-01-15 15:25 | DS ---
Physical Exam: SUBJECTIVE: Patient seen and examined. He denies any shortness of breath or discomfort. Patient states he will follow up with the methadone clinic @ [facility] and will need a medical van on d/c. Will also follow up with Dr. Burns and an appointment has been set States his stools have been solid for the last 5 days, denies diarrhea. To continue on Vancomycin oral for 10 more days as per ID. OBJECTIVE: Patient was able to tolerate physical therapy and ambulate up and down the hallway +150 feet Will need home oxygen for dyspnea with ambulation Started patient home dose of Lasix 40mg Abdominal ana removed by surgery, abdomen clean and dry, no redness or edema WBC trending down - to continue oral vanco as an outpatient Vital Signs Period Temp Pulse Resp BP Sys/Chatterjee Pulse Ox Last 24 Hr 98.1 F-98.9 F 44-84 16-20 94-118/44-73 96-97 PHYSICAL EXAM GENERAL: The patient is awake, alert, and fully oriented, in no acute distress. HEAD: Normal with no signs of trauma. NECK: Trachea midline, full range of motion, supple. LUNGS: Breath sounds equal, diminished/clear to auscultation bilaterally, no wheezes, no crackles, no accessory muscle use. HEART: sinus bradycardia 40s to 50s on patient monitor ABDOMEN: s/p aorta fem bypass, abdomen slightly distended, + ana - ana to be removed prior to discharge NEUROLOGICAL: Normal speech, gait not observed. PSYCH: Normal mood, normal affect. LABS Laboratory Results - last 24 hr 01/14/17 01/15/17 01/15/17 21:22 05:35 05:35 WBC 12.3 H RBC 3.39 L Hgb 10.2 L Hct 30.9 L MCV 91.1 MCHC 33.0 RDW 16.0 H Plt Count 214 MPV 9.4 Neutrophils % 75.9 Lymphocytes % 10.2 D Monocytes % 10.7 H Eosinophils % 2.7 Basophils % 0.5 Sodium 142 Potassium 3.9 Chloride 102 Carbon Dioxide 32 Anion Gap 8 BUN 13 Creatinine 1.2 Creat Clearance w eGFR > 60 POC Glucometer 143 Random Glucose 87 Calcium 7.8 L Total Bilirubin 0.3 D AST 17 ALT 17 Alkaline Phosphatase 123 H Total Protein 4.5 L Albumin 2.2 L 01/15/17 06:04 WBC RBC Hgb Hct MCV MCHC RDW Plt Count MPV Neutrophils % Lymphocytes % Monocytes % Eosinophils % Basophils % Sodium Potassium Chloride Carbon Dioxide Anion Gap BUN Creatinine Creat Clearance w eGFR POC Glucometer 96 Random Glucose Calcium Total Bilirubin AST ALT Alkaline Phosphatase Total Protein Albumin HOSPITAL COURSE: Date of Admission:12/22/16 Date of Discharge: 01/15/17 Patient is a 61 year old male with significant past medical history of of newly diagnosed atrial fibrillation (on Xarelto), CHF, HTN, PAD, and venous ulcerations on bilateral lower extremities, opioid dependence (on methadone). He was admitted on 12/22/2016 with bilateral wound cellulitis with weeping and A fib with RVR. On 12/30/2016 he underwent a Aorto-bifemoral bypass. He is s/p ICU monitoring x 14 days. Vascular: PAD with distal aorta and external iliac occlusion - resolved Assessment/Plan: s/p aorto-bifemoral bypass on 12/30/16 bilateral foot pulses warm to touch, denies pain or discomfort No abdominal pain, ana removed by surgery OOB to chair as tolerated, ambulated with physical therapy Bilateral venous stasis wounds - improving Assessment/Plan: On going wound care with Silvadene ID: Leukocytosis - likely secondary to + cdiff, but WBC now trending down - improving Patient states he is having solid stools, denies abdominal pain Assessment/Plan: On PO vanco for 10 more days follow up with PCP Cardiology: Afib with RVR - now in sinus rhythm/sinus bradycardia Assessment/Plan: Continue Xarelto 20mg daily, Lopressor 50mg BID Amiodorone stopped secondary to bradycardia Patient remains asymptomatic Started on home dose of Lasix 40mg daily To see Dr. Burns as an outpatient. Endocrine: Diabetes mellitus - new diagnosis Assessment/Plan: Metformin 500mg BID on discharge Psyche: Polysubstance abuse Assessment/Plan: Methadone 70mg daily Disposition: Full Code. Discharge home with continuation of Vancomycin oral for 10 more days. Needs PCP and [employer] as an outpatient. Minutes to complete discharge: 60 Discharge Summary Reason For Visit: CELLULITIS, ATRIAL FIB RAPID VENTRICULA Current Active Problems Atrial fibrillation with rapid ventricular response (Acute) CHF (congestive heart failure) (Acute) COPD (chronic obstructive pulmonary disease) (Acute) Cellulitis (Acute) Clostridium difficile diarrhea (Acute) Diastolic dysfunction (Acute) Leukocytosis (Acute) Methadone dependence (Acute) PAD (peripheral artery disease) (Acute) Paroxysmal atrial fibrillation (Acute) Pre-operative cardiovascular examination, high risk surgery (Acute) S/P aorto-bifemoral bypass surgery (Acute) Skin breakdown (Acute) Substance abuse (Acute) Condition: Improved - Instructions Diet, Activity, Other Instructions: Mr. Suarez: During your hospitalization, your HgbA1c was elevated which indicates that you are a diabetic. Will will start you on Metformin 500mg twice per day. Please follow a low carb diet and follow up with your primary care physician, as your PCP needs to monitor your blood sugars closely. You will see Dr. Burns, Autom[employer] Service Station Manager as an outpatient with an appointment on Wednesday 12:00 PM. Please return to the ER with any worse or persistent symptoms. Continue all medications as prescribed, please continue the Vancomycin for 10 more days. Please see your primary care physician so that they can monitor your blood sugars and made any medications adjustments. Transportation Note Patient will require a medical van for transportation to and from his doctor's office and methadone clinic. Please call me with any questions. Nini zacarias [employer] HE[employer]DER Referrals: Trisha Rodas MD [Primary Care Provider] - Lei Burns MD [Staff Physician] - Disposition: HOME - Home Medications Comprehensive Discharge Medication List: Ambulatory Orders Furosemide [Lasix -] 40 mg PO DAILY 12/22/16 Methadone [Dolophine -] 70 mg PO DAILY 12/22/16 Metoprolol Tartrate [Lopressor -] 50 mg PO BID 12/22/16 Rivaroxaban [Xarelto -] 20 mg PO DAILY 12/22/16 Metformin HCl [Glucophage -] 500 mg PO BID #60 tablet 01/15/17 Metoprolol Tartrate [Lopressor -] 50 mg PO BID #60 tablet 01/15/17 Rivaroxaban [Xarelto -] 20 mg PO DAILY tablet 01/15/17 Silver Sulfadiazine 1% Top Cr [Silvadene -] 1 applic TP DAILY #1 jar 01/15/17 Vancomycin Oral Solution 125 mg PO Q6HPO #1 bottle 01/15/17 This patient is new to me today: No Emergency Visit: Yes ED Registration Date: 12/22/16 Care time: The patient presented to the Emergency Department on the above date and was hospitalized for further evaluation of their emergent condition. Critical Care patient: No - Discharge Referral Referred to [facility] No
[2017-01-15] MEDS: INSULIN DETEMIR 100 UNITS/ML MDV SQ SCH (21:51)
[2017-01-15] MEDS: diphenhydrAMINE HCL 25 MG CAPSULE (FP) PO SCH (21:51)
[2017-01-16] MEDS: METRONIDAZOLE 500 MG PREMIXED 100 ML IVPB SCH ×2 (02:23→10:30)
[2017-01-16] MEDS ORDERED: METHADONE HCL 40 MG DISPERSABLE TABLET ONE (05:29)
[2017-01-16] MEDS ORDERED: METHADONE HCL 10 MG TABLET ONE (05:29)
[2017-01-16] MEDS: METHADONE 40 MG, METHADONE 30 MG PO SCH (05:33)
[2017-01-16] MEDS: VANCOMYCIN 250 MG/5 ML ORAL SOLUTION PO SCH ×2 (05:35→12:49)
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
[2017-01-16] MEDS: PANTOPRAZOLE 40 MG TABLET (FP) PO SCH (10:30)
[2017-01-16] MEDS: FUROSEMIDE 40 MG TABLET (FP) PO SCH (10:30)
[2017-01-16] MEDS: METOPROLOL TARTRATE 50 MG TABLET (FP) PO SCH (10:31)
[2017-01-16] MEDS: LACTOBACILLUS ACIDOPHILUS 1 EACH TAB (FP) PO SCH (10:31)
[2017-01-16] MEDS: RIVAROXABAN 20 MG TABLET PO SCH (10:32)
[2017-01-16] MEDS: SILVER SULFADIAZINE 1% TOP CREAM 50 GM JAR TP SCH (10:32)
[2017-01-16] MEDS ORDERED: PT OWN MED DRAWER 7, Y5N ONE (10:32)
--- NOTE | 2017-01-16 12:23 | PN ---
Progress Note, Physician Chief Complaint: Not in distress Post op aorto-bifem bypass History of Present Illness: Patient was seen and examined. Awake and alert. Chart was reviewed Denies chest pain, SOB or palpitations - Current Medication List Current Medications: Active Medications Acetaminophen (Tylenol Oral Solution -) 650 mg PO Q6H PRN PRN Reason: FEVER OR PAIN Last Admin: 01/13/17 21:55 Dose: 650 mg Albuterol/Ipratropium (Duoneb -) 1 amp NEB Q6H PRN PRN Reason: SHORTNESS OF BREATH Last Admin: 01/01/17 20:25 Dose: 1 amp Diphenhydramine HCl (Benadryl -) 25 mg PO HS [facility] Last Admin: 01/15/17 21:51 Dose: 25 mg Furosemide (Lasix -) 40 mg PO DAILY [facility] Last Admin: 01/16/17 10:30 Dose: 40 mg Metronidazole (Flagyl 500mg Premixed Ivpb -) 100 mls @ 100 mls/hr IVPB Q8H-IV [facility] Last Admin: 01/16/17 10:30 Dose: 100 mls/hr Insulin Detemir (Levemir Vial) 5 units SQ HS [facility] Last Admin: 01/15/17 21:51 Dose: 5 units Lactobacillus Acidophilus (Bacid -) 1 tab PO DAILY [facility] Last Admin: 01/16/17 10:31 Dose: 1 tab Methadone HCl 40 mg/ Methadone (HCl 30 mg) 70 mg PO DAILY@0600 [facility] Last Admin: 01/16/17 05:33 Dose: 70 mg Metoprolol Tartrate (Lopressor -) 50 mg PO BID [facility] Last Admin: 01/16/17 10:31 Dose: 50 mg Pantoprazole Sodium (Protonix -) 40 mg PO DAILY [facility] Last Admin: 01/16/17 10:30 Dose: 40 mg Rivaroxaban (Xarelto -) 20 mg PO DAILY [facility] Last Admin: 01/16/17 10:32 Dose: 20 mg Silver Sulfadiazine (Silvadene -) 1 applic TP DAILY [facility] Last Admin: 01/16/17 10:32 Dose: 1 applic Sodium Chloride ([place] -) 2 spray NS BID PRN PRN Reason: NASAL CONGESTION Last Admin: 01/02/17 18:12 Dose: 2 spray Vancomycin HCl (Vancomycin Oral Solution) 125 mg PO Q6HPO [facility] Last Admin: 01/16/17 05:35 Dose: 125 mg - Objective Vital Signs: Vital Signs Temperature 98.3 F 01/16/17 10:00 Pulse Rate 97 H 01/16/17 10:00 Respiratory Rate 20 01/16/17 10:00 Blood Pressure 128/76 01/16/17 10:00 O2 Sat by Pulse Oximetry (%) 97 01/16/17 09:00 Constitutional: Yes: No Distress HENT: Yes: Atraumatic Neck: Yes: Supple Cardiovascular: Yes: Regular Rate and Rhythm, S1, S2 Respiratory: Yes: CTA Bilaterally Gastrointestinal: Yes: Normal Bowel Sounds, Soft. No: Tenderness Edema: No Additional Findings/Remarks: - Review of Systems Cardiovascular: As noted above Respiratory: denies: denies: Cough or Sputum Production Gastrointestinal: denies: Nausea, Vomiting, Diarrhea, Constipation or Abdominal Discomfort Musculoskeletal: No Symptoms Reported Endocrine: No Symptoms Reported Labs: CBC, BMP 01/15/17 05:35 01/15/17 05:35 Problem List - Problems (1) Atrial fibrillation with rapid ventricular response Code(s): I48.91 - UNSPECIFIED ATRIAL FIBRILLATION (2) CHF (congestive heart failure) Code(s): I50.9 - HEART FAILURE, UNSPECIFIED Qualifiers: Congestive heart failure type: diastolic Congestive heart failure chronicity: acute on chronic Qualified Code(s): I50.33 - Acute on chronic diastolic (congestive) heart failure (3) Cellulitis Code(s): L03.90 - CELLULITIS, UNSPECIFIED Qualifiers: Site of cellulitis of extremity: lower extremity Laterality: unspecified laterality (4) Diastolic dysfunction Code(s): I51.9 - HEART DISEASE, UNSPECIFIED (5) Methadone dependence Code(s): F11.20 - OPIOID DEPENDENCE, UNCOMPLICATED (6) PAD (peripheral artery disease) Code(s): I73.9 - PERIPHERAL VASCULAR DISEASE, UNSPECIFIED (7) Pre-operative cardiovascular examination, high risk surgery Code(s): Z01.810 - ENCOUNTER FOR PREPROCEDURAL CARDIOVASCULAR EXAMINATION Assessment/Plan 1. Paroxysmal atrial fibrillation/atrial flutter [id number] score of 2 on NOAC 2. CAD angina pectoris 3. LV diastolic dysfunction with chronic class 0-I NYHA classification LV failure, compensated 4. PAD with distal aortic occlusion and common and external iliac artery occlusion s/p Aorto-bifemoral Bypass (12/30) 5. Bilateral lower extremity ulcer/cellulitis 6. History of non-compliance 7. COPD - smoker 8. C. difficile with leukocytosis PLAN: 1. Continue Xarelto 20 mg once a day 2. Continue Lopressor 50 bid as tolerated and monitor HR 3. O2 Discharge planning Further plans
[2017-01-16 15:22] VITALS: BP 129/75; PULSE 62; TEMP 98.1
--- NOTE | 2017-01-16 17:34 | PN ---
Progress Note, Physician History of Present Illness: patient doing well no new issues says he is feeling much better - Objective Vital Signs: Vital Signs Temperature 98.1 F 01/16/17 14:00 Pulse Rate 62 01/16/17 14:00 Respiratory Rate 20 01/16/17 14:00 Blood Pressure 129/75 01/16/17 14:00 O2 Sat by Pulse Oximetry (%) 97 01/16/17 09:00 Constitutional: Yes: No Distress, Calm Respiratory: Yes: Regular, CTA Bilaterally Gastrointestinal: Yes: Normal Bowel Sounds, Soft Musculoskeletal: Yes: Other Extremities: Yes: Other Neurological: Yes: Alert, Oriented Psychiatric: Yes: Alert, Oriented Labs: CBC, BMP 01/15/17 05:35 01/15/17 05:35 INR, PTT INR 1.59 (0.82-1.09) H D 01/04/17 05:30 Assessment/Plan - Problems (1) Atrial fibrillation with rapid ventricular response Code(s): I48.91 - UNSPECIFIED ATRIAL FIBRILLATION (2) Cellulitis Code(s): L03.90 - CELLULITIS, UNSPECIFIED Qualifiers: Site of cellulitis of extremity: lower extremity Laterality: unspecified laterality (3) Methadone dependence Code(s): F11.20 - OPIOID DEPENDENCE, UNCOMPLICATED (4) PAD (peripheral artery disease) Code(s): I73.9 - PERIPHERAL VASCULAR DISEASE, UNSPECIFIED (5) Substance abuse Code(s): F19.10 - OTHER PSYCHOACTIVE SUBSTANCE ABUSE, UNCOMPLICATED (6) Diastolic dysfunction Code(s): I51.9 - HEART DISEASE, UNSPECIFIED cdiff wound infection wbc has improved plan stable vanco 125 mg every 4 hourly for 10 days
--- NOTE | 2017-01-19 12:49 | HOSP ---
Subjective - Review of Symptoms Events since last encounter: Received notice on 01/18/17 from patient and his pharmacy that the Vancomycin oral needs preauthorization from [employer]. I called [facility] and spoke to applications sales representative ( ) and was informed that Vancomycin needs preauthorization. [place] to sent fax to me but fax not received. Called [facility] again today 01/19/2017 and spoke to applications sales representative about non receipt of fax. Gave her new fax no. and awaiting same. Spoke to Dr. Sanon who recommended that patient be put on Flagyl TID until Vancomycin becomes available. I called patient at home and spoke to patient's and updated her. Advised her to apple picking supervisor the Flagyl called into patient's pharmacy until I am able to get authorization for the Vancomycin. verbalized understanding and agreed to apple picking supervisor the Flagyl. Physical Examination Vital Signs: Vital Signs Temperature 98.1 F 01/16/17 14:00 Pulse Rate 62 01/16/17 14:00 Respiratory Rate 20 01/16/17 14:00 Blood Pressure 129/75 01/16/17 14:00 O2 Sat by Pulse Oximetry (%) 97 01/16/17 09:00 Labs: CBC, BMP 01/15/17 05:35 01/15/17 05:35
[2017-01-19] MEDS ORDERED: metroNIDAZOLE 250 MG TABLET PO SCH (14:00)
== END 2017-01-16 17:29 | disposition home or self-care (01) | DRG 169 ==
LOC: JER 07:02 → JERBED 11:00 → J4W 15:25 → JSAMEDAYSX 12-30 17:58 → JICU 12-30 20:20 → J4S 01-05 16:13
PROVIDERS: ADMIT Internal Medicine; ATTEND Nurse Practitioner Family
PROC: HZ91ZZZ Pharmacotherapy for Substance Abuse Treatment, Methadone Maintenance (ICD-10-PCS; 2016-12-22)
PROC: 04100JK Bypass Abdominal Aorta to Bilateral Femoral Arteries with Synthetic Substitute, Open Approach (ICD-10-PCS; principal; 2016-12-30 11:00)
PROC: 3E0F7GC Introduction of Other Therapeutic Substance into Respiratory Tract, Via Natural or Artificial Opening (ICD-10-PCS; 2017-01-14)
DX: I75.89 Atheroembolism of other site (principal); L97.929 Non-pressure chronic ulcer of unspecified part of left lower leg with unspecified severity; L97.919 Non-pressure chronic ulcer of unspecified part of right lower leg with unspecified severity; I73.9 Peripheral vascular disease, unspecified; Z79.01 Long term (current) use of anticoagulants; I11.0 Hypertensive heart disease with heart failure; D72.829 Elevated white blood cell count, unspecified; A04.7 Enterocolitis due to Clostridium difficile; F17.210 Nicotine dependence, cigarettes, uncomplicated; I87.8 Other specified disorders of veins; L03.116 Cellulitis of left lower limb; L03.115 Cellulitis of right lower limb; F32.9 Major depressive disorder, single episode, unspecified; E11.65 Type 2 diabetes mellitus with hyperglycemia; Z79.84 Long term (current) use of oral hypoglycemic drugs; I50.30 Unspecified diastolic (congestive) heart failure; B95.61 Methicillin susceptible Staphylococcus aureus infection as the cause of diseases classified elsewhere; I25.119 Atherosclerotic heart disease of native coronary artery with unspecified angina pectoris; R78.81 Bacteremia; I77.1 Stricture of artery; J44.9 Chronic obstructive pulmonary disease, unspecified; I48.1 Persistent atrial fibrillation; G47.00 Insomnia, unspecified; G47.33 Obstructive sleep apnea (adult) (pediatric)
CPT/HCPCS: 36415; 36430; 36600; 71010-TC; 74177-TC; 75635-TC; 78452-TC; 80048; 80053; 80061; 80162; 81003; 81015; 82550; 82803; 83036; 83605; 83721; 83735; 83880; 84100; 84132; 84443; 84484; 85025; 85027; 85610; 85730; 86850; 86900; 86901; 86922; 87040; 87045; 87046; 87086; 87186; 87324; 87449; 88304-TC; 93005; 93010; 93017; 93306-TC; 94010; 94640; 94760; 94761; 97116-GP; 97162; 99285-25; A9502; G0480; J1245; J1644; Q9967

== ENCOUNTER 2017-09-25 08:10 | Inpatient (IN) | payer OTHER ==
--- NOTE | 2017-09-25 08:33 | PDOC ---
History of Present Illness <Mindy Jacobs - Last Filed: 09/25/17 11:29> - History of Present Illness Initial Comments: 62 year old male with PMH atrial fibrillation (on Xarelto), CHF (LV diastolic dysfunction NYHA Class 0), COPD (Home O2 2L), HTN, PAD (distal aorta and external iliac occlusion, s/p aorto-bifemoral bypass on 12/30/16) and venous ulcerations on bilateral lower extremities, opioid dependence (on methadone) presenting with fever, cough, myalgias, and worsening SOB over the past two days. States that he has been feeling warm at home but has not measured a fever. His cough is productive for clear sputum and he has some muscular back pain. His O2 requirement has not increased but he has less exercise tolerance. He did have a very brief episode of chest pain last night for about 10 seconds on the right sided. Denies nausea, vomiting, diarrhea, constipation, active chest pain, or other sick symptoms. 09/25/17 08:40 <Theo Medina - Last Filed: 09/25/17 13:47> - General Chief Complaint: Respiratory Stated Complaint: COUGH, SOB Time Seen by Provider: 09/25/17 08:33 Past History <Mindy Jacobs - Last Filed: 09/25/17 11:29> - Past Medical History Cardiac Disorders: Yes (CHF) COPD: Yes HTN: Yes - Suicide/Smoking/Psychosocial Hx Smoking History: Former smoker Have you smoked in the past 12 months: No Number of Cigarettes Smoked Daily: 10 If you are a former smoker, when did you quit?: 2016 Information on smoking cessation initiated: No Hx Alcohol Use: No <Theo Medina - Last Filed: 09/25/17 13:47> - Past Medical History Allergies/Adverse Reactions: Allergies Allergy/AdvReac Type Severity Reaction Status Date / Time Penicillins Allergy Verified 09/25/17 08:16 Home Medications: Ambulatory Orders Furosemide [Lasix -] 40 mg PO DAILY 12/22/16 Methadone [Dolophine -] 70 mg PO DAILY 12/22/16 Metoprolol Tartrate [Lopressor -] 50 mg PO BID 12/22/16 Metformin HCl [Glucophage -] 500 mg PO BID #60 tablet 01/15/17 Metoprolol Tartrate [Lopressor -] 50 mg PO BID #60 tablet 01/15/17 Rivaroxaban [Xarelto -] 20 mg PO DAILY tablet 01/15/17 Silver Sulfadiazine 1% Top Cr [Silvadene -] 1 applic TP DAILY #1 jar 01/15/17 Vancomycin Oral Solution 125 mg PO Q6HPO #1 bottle 01/15/17 Rivaroxaban [Xarelto -] 20 mg PO DAILY #30 tab 01/18/17 Metronidazole [Flagyl -] 500 mg PO TID #30 tablet 01/19/17 Review of Systems - Review of Systems Constitutional: Yes: Fever. No: Chills, Diaphoresis HEENTM: No: Blurred Vision Respiratory: Yes: Cough, Shortness of Breath, SOB with Exertion, Productive cough. No: SOB at Rest, Wheezing, Hemoptysis Cardiac (ROS): No: Chest Pain, Irregular Heart Rate, Lightheadedness, Palpitations, Syncope, Chest Tightness ABD/GI: No: Constipated, Diarrhea, Nausea, Poor Appetite, Vomiting : No: Burning, Dysuria, Discharge Musculoskeletal: No: Back Pain Integumentary: Yes: Erythema (Left medial ankle erythema) Neurological: No: Headache, Numbness <Theo Medina - Last Filed: 09/25/17 13:47> *Physical Exam - Vital Signs Last Vital Signs Temp Pulse Resp BP Pulse Ox 100.0 F H 66 18 155/83 100 09/25/17 08:14 09/25/17 08:14 09/25/17 08:14 09/25/17 08:14 09/25/17 08:14 <Mindy Jacobs - Last Filed: 09/25/17 11:29> - Vital Signs Last Vital Signs Temp Pulse Resp BP Pulse Ox 100.0 F H 66 18 155/83 100 09/25/17 08:14 09/25/17 08:14 09/25/17 08:14 09/25/17 08:14 09/25/17 08:14 - Physical Exam General Appearance: Yes: Nourished, Appropriately Dressed. No: Apparent Distress HEENT: positive: EOMI, FLEX, Normal ENT Inspection (NC in place), Normal Voice Neck: positive: Trachea midline, Normal Thyroid, Supple. negative: Tender, Rigid Respiratory/Chest: negative: Chest Tender, Lungs Clear (Faint wheezes in left lower lobe with delayed expiratory phase), Normal Breath Sounds, Respiratory Distress, Accessory Muscle Use Cardiovascular: positive: Regular Rhythm, Regular Rate Gastrointestinal/Abdominal: positive: Normal Bowel Sounds, Flat, Soft, Other ( Well healed midline scar). negative: Tender Extremity: positive: Normal Capillary Refill, Normal Inspection, Normal Range of Motion Integumentary: positive: Dry, Warm, Erythema. negative: Normal Color (Left medial malleolar erythema, appears chronic), Rash, Swelling Neurologic: positive: jig inspector II-XII NML intact, Fully Oriented, Alert, Normal Mood/ Affect, Motor Strength 5/5 <Theo Medina - Last Filed: 09/25/17 13:47> ED Treatment Course - LABORATORY CBC & Chemistry Diagram: 09/25/17 09:26 09/25/17 09:26 - ADDITIONAL ORDERS Additional order review: Laboratory Results 09/25/17 09/25/17 09:26 09:26 Sodium 134 L Potassium 4.8 Chloride 100 Carbon Dioxide 25 Anion Gap 9 BUN 33 H D Creatinine 1.3 Creat Clearance w eGFR 55.94 Random Glucose 134 H Calcium 8.5 Total Bilirubin 0.5 AST 24 ALT 29 D Alkaline Phosphatase 132 H D Creatine Kinase 43 Troponin I < 0.02 B-Natriuretic Peptide Cancelled 1178.19 H Total Protein 7.1 Albumin 3.7 09/25/17 09:01 Influenza Types A,B Antigen (RUBÉN) - Final Nasopharyngeal Swab - Final 09/25/17 09:26 RBC 4.04 MCV 93.1 MCHC 31.7 L RDW 14.6 MPV 10.2 Neutrophils % 84.2 H Lymphocytes % 4.3 L D Monocytes % 10.8 H Eosinophils % 0.2 D Basophils % 0.5 - Medications Given in the ED: ED Medications Discontinued Medications Generic Name Dose Route Start Last Admin Trade Name Freq PRN Reason Stop Dose Admin Acetaminophen 1,000 mg 09/25/17 09:00 09/25/17 09:05 Tylenol - PO 09/25/17 09:01 1,000 mg ONCE ONE Administration Albuterol/Ipratropium 1 amp 09/25/17 09:42 09/25/17 10:13 Duoneb - NEB 09/25/17 09:43 1 amp ONCE ONE Administration <Mindy Jacobs - Last Filed: 09/25/17 11:29> - LABORATORY CBC & Chemistry Diagram: 09/25/17 09:26 09/25/17 09:26 <Theo Medina - Last Filed: 09/25/17 13:47> Medical Decision Making - Medical Decision Making 62 year old male with PMH atrial fibrillation (on Xarelto), CHF (LV diastolic dysfunction NYHA Class 0), COPD (Home O2 2L), HTN, PAD (distal aorta and external iliac occlusion, s/p aorto-bifemoral bypass on 12/30/16) and venous ulcerations on bilateral lower extremities, opioid dependence (on methadone) presenting with fever, cough, myalgias, and worsening SOB over the past two days. Strory was originally concerning for PNA vs. ESTER/ influenza vs. COPD exarbation vs. acute chf but labs demonstrating decreased BNP from last admission, flu negative, slight MADELAINE (cr 1.3, elevated from 1.1 in the past), and WBC of 18. Patient was admitted for likely PNA with radiological delay, blood cultures drawn, and given Levaquin. 09/25/17 12:24 <Theo Medina - Last Filed: 09/25/17 13:47> *DC/Admit/Observation/Transfer <Mindy Jacobs - Last Filed: 09/25/17 11:29> - Discharge Dispostion Admit: Yes <Theo Medina - Last Filed: 09/25/17 13:47> Diagnosis at time of Disposition: PNA (pneumonia) Qualifiers: Pneumonia type: due to unspecified organism Laterality: unspecified laterality Lung location: unspecified part of lung Qualified Code(s): J18.9 - Pneumonia, unspecified organism - Discharge Dispostion Condition at time of disposition: Stable - Referrals Referrals: Deedee Perdomo MD [Primary Care Provider] - - Patient Instructions - Post Discharge Activity
[2017-09-25] MEDS ORDERED: ACETAMINOPHEN 500 MG TABLET (FP) PO ONE (09:00)
[2017-09-25] MEDS ORDERED: ACETAMINOPHEN 325 MG TABLET (FP) ONE (09:04)
[2017-09-25 09:36] LABS: BASO % 0.5 % (0-2.0); EOS % 0.2 % (0-4.5); HEMATOCRIT 37.6 % (35.4-49); HEMOGLOBIN 11.9 GM/dL (11.7-16.9); LYMPH % 4.3 % (8-40); MCH 29.5 pg (25.7-33.7); MCHC 31.7 g/dl (32.0-35.9); MEAN CELL VOLUME 93.1 fl (80-96); MEAN PLT VOLUME 10.2 fl (7.5-11.1); MONO % 10.8 % (3.8-10.2); NEUT % 84.2 % (42.8-82.8); PLATELET COUNT 172 K/MM3 (134-434); RBC 4.04 M/mm3 (4.00-5.60); RDW 14.6 % (11.9-15.9); WHITE BLOOD COUNT 18.3 K/mm3 (4.0-10.0)
[2017-09-25] MEDS ORDERED: ALBUTEROL SO4 2.5/IPRATROPIUM 0.5 INH SOL 3 ML VIAL.NEB. NEB ONE ×2 (09:42→10:09)
[2017-09-25 10:13] LABS: ALBUMIN 3.7 g/dl (3.4-5.0); ANION GAP 9 (8-16); BILIRUBIN,TOTAL 0.5 mg/dL (0.2-1.0); BLOOD UREA NITROGEN 33 mg/dL (7-18); CALCIUM 8.5 mg/dL (8.5-10.1); CHLORIDE 100 mmol/L (98-107); CO2 25 mmol/L (21-32); CREATININE 1.3 mg/dL (0.7-1.3); GLUCOSE,RANDOM 134 mg/dL (74-106); POTASSIUM 4.8 mmol/L (3.5-5.1); SGOT/AST 24 U/L (15-37); SGPT/ALT 29 U/L (12-78); SODIUM 134 mmol/L (136-145); TOT PROT 7.1 g/dl (6.4-8.2)
[2017-09-25 10:16] LABS: ALK PHOS 132 U/L (45-117); N-TERMINAL BNP 1178.19 pg/ml (5-125)
[2017-09-25] MEDS ORDERED: LEVOFLOXACIN 750 MG IVPB 750 MG/150 ML BAG IVPB ONE ×2 (11:25→12:11)
--- NOTE | 2017-09-25 11:31 | PDOC ---
Attending Attestation - HPI HPI: 09/25/17 11:41 The patient is a 62 year old male with a significant PMH of CHF, COPD, AFIB (on Xarelto), HTN, PAD, venous ulcerations on bilateral lower extremities, and opioid dependence (on Methadone) who presents to the emergency department with cold-like symptoms including fever, body aches, cough, and shortness of breath beginning approximately 2 days ago. Patient also notes experiencing a sudden episode of right sided chest pain last night which lasted 10 seconds but has now resolved. Patient denies nausea, vomiting, diarrhea. Denies urinary complaints. Allergies: Penicillins PCP: Dr. Goff <Patel Brennan - Last Filed: 09/25/17 11:54> - Resident Resident Name: Theo Medina - [facility] HPI: I, Dr. Mindy Jacobs, attest that the scribes documentation that appears above has been prepared under my direction and personally reviewed by me. I confirmed that the note above accurately reflects all work, treatment, procedures, and medical decision-making performed by me. 09/25/17 17:47 09/25/17 17:47 Lungs: mild wheezing, speaking in full sentences,no use of accessory muscles [id number] : regular abd : + bs abd soft no guarding or tenderness - Physicial Exam PE: 09/27/17 09:39 General: non toxic appearing man sitting beside stretcher in ED, having just completed nebulizer treatment Lungs; +bs kerry with diffuse wheezing,no use of accessory muscles, speaking in full sentences, not using oxygen at present Heart: [id number] Abd: + bs abd soft no guardingor tenderness Neuro: alert and oriented x3, CN 2-12 grossly intact - Medical Decision Making 09/25/17 17:48 62 y/o male here in ed c/o wheezing, slight fever, cxr no acute infiltrate, neg influenza but pt with significant comorbidities and elevated cbc, will treat with iv antibiotics, blood cx obtained and pt admitted to hospital for copd exacerbation ,pt agreed with this treatmen plan 09/27/17 09:41 <Mindy Jacobs - Last Filed: 09/27/17 09:41> Heart Score/ECG Review #1 09/25/17 11:54 Vent rate 50 bpm Sinus bradycardia with marked sinus arrhythmia Nonspecific T wave abnormality Abnormal ECG <Patel Brennan - Last Filed: 09/25/17 11:54>
--- NOTE | 2017-09-25 12:03 | EKG ---
Test Reason : Blood Pressure : / mmHG Vent. Rate : 050 BPM Atrial Rate : 050 BPM P-R Int : 142 ms QRS Dur : 072 ms QT Int : 442 ms P-R-T Axes : 010 047 047 degrees QTc Int : 402 ms SINUS BRADYCARDIA WITH MARKED SINUS ARRHYTHMIA NONSPECIFIC T WAVE ABNORMALITY ABNORMAL ECG WHEN COMPARED WITH ECG OF 12-JAN-2017 11:56, NONSPECIFIC T WAVE ABNORMALITY HAS REPLACED INVERTED T WAVES IN LATERAL LEADS Confirmed by MD KALEB, VICENTE ([id number]) on 09/25/2017 12:02:32 PM Referred By: Confirmed By:VICENTE MANUEL MD
[2017-09-25 12:15] LABS: URINE APPEARANCE CLEAR; URINE BILIRUBIN NEGATIVE (NEGATIVE); URINE BLOOD 1+ (NEGATIVE); URINE COLOR YELLOW; URINE GLUCOSE (UA) NEGATIVE (NEGATIVE); URINE KETONE NEGATIVE (NEGATIVE); URINE LEUK ESTERASE NEGATIVE (NEGATIVE); URINE NITRITE NEGATIVE (NEGATIVE); URINE UROBILINOGEN NEGATIVE mg/dL (0.2-1.0)
[2017-09-25 12:16] LABS: URINE PROTEIN 1+ (NEGATIVE)
[2017-09-25 12:24] LABS: EPI CELLS RARE /HPF (FEW); URINE BACTERIA RARE /hpf (NONE SEEN); URINE MUCUS RARE
--- NOTE | 2017-09-25 13:04 | HP ---
CHIEF COMPLAINT: shortness of breath and cough, "I think i have a pneumonia" PCP: Bed Bug Exterminator: Dr. Burns HISTORY OF PRESENT ILLNESS: Patient is a 61 year old male with significant past medical history of of newly diagnosed atrial fibrillation (on Xarelto), CHF, HTN, PAD, venous ulcerations on bilateral lower extremities and opioid dependence (on methadone). On 2016 he underwent a aorto-bifemoral bypass and was an ICU admission in December 2016. He was admitted today with worsening cough and shortness of breath with exertion. He states that he is home oxygen dependent on 2 liters of nasal cannula which he states he is compliant with. However, he is normally able to get up and ambulate his 22 steps at home but now it is getting harder for his to do so. He is requiring more periods of physical inactivity to catch his breath. He states he has been compliant with all his home medications and home oxygen. His sales and service engineer is Dr. Burns and he was scheduled to see him on Wednesday but decided to come to the ER for relief of dyspnea. Labs show elevated WBC of 18.3, NA 134, BNP 1178. Chest xray shows no acute pathology. On exam, he was comfortable at rest, in no acute distress. Lungs diminished bilaterally. +1 lower ext edema bilaterally. Patient is on Xarelto and states compliance. Will doppler to rule out DVT. He states he had an an episode of right sided chest pain on admission, but denies any further chest pain. He denies fevers, chills, vomiting or diarrhea. ER course was notable for: (1) WBC 18.3 given Levaquin, temp 100.F (2) NA 134 (3) BNP 1178 (2300s on previous admission) (4) Chest xray, no acute pathology Recent Travel: n/a PAST MEDICAL HISTORY: as above PAST SURGICAL HISTORY: aorto-bifemoral bypass and was an ICU admission in December 2016. Social History: Smoking: n/a Alcohol: n/a Drugs: n/a Family History: Allergies Penicillins Allergy (Verified 09/25/17 08:16) HOME MEDICATIONS: Home Medications Medication Instructions Recorded Furosemide [Lasix -] 40 mg PO DAILY 12/22/16 Methadone [Dolophine -] 70 mg PO DAILY 12/22/16 Metoprolol Tartrate [Lopressor -] 50 mg PO BID 12/22/16 Metformin HCl [Glucophage -] 500 mg PO BID #60 tablet 01/15/17 Metoprolol Tartrate [Lopressor -] 50 mg PO BID #60 tablet 01/15/17 Rivaroxaban [Xarelto -] 20 mg PO DAILY tablet 01/15/17 Silver Sulfadiazine 1% Top Cr 1 applic TP DAILY #1 jar 01/15/17 [Silvadene -] Vancomycin Oral Solution 125 mg PO Q6HPO #1 bottle 01/15/17 Rivaroxaban [Xarelto -] 20 mg PO DAILY #30 tab 01/18/17 Metronidazole [Flagyl -] 500 mg PO TID #30 tablet 01/19/17 REVIEW OF SYSTEMS CONSTITUTIONAL: Absent: fever, chills, diaphoresis, generalized weakness, malaise, loss of appetite, weight change HEENT: Absent: rhinorrhea, nasal congestion, throat pain, throat swelling, difficulty swallowing, mouth swelling, ear pain, eye pain, visual changes CARDIOVASCULAR: Absent: chest pain, syncope, palpitations, irregular heart rate, lightheadedness , peripheral edema GASTROINTESTINAL: Absent: abdominal pain, abdominal distension, nausea, vomiting, diarrhea, constipation, melena, hematochezia GENITOURINARY: Absent: dysuria, frequency, urgency, hesitancy, hematuria, flank pain, genital pain MUSCULOSKELETAL: Absent: myalgia, arthralgia, joint swelling, back pain, neck pain SKIN: Absent: rash, itching, pallor HEMATOLOGIC/IMMUNOLOGIC: Absent: easy bleeding, easy bruising, lymphadenopathy, frequent infections ENDOCRINE: Absent: unexplained weight gain, unexplained weight loss, heat intolerance, cold intolerance NEUROLOGIC: Absent: headache, focal weakness or paresthesias, dizziness, unsteady gait, seizure, mental status changes, bladder or bowel incontinence PSYCHIATRIC: Absent: anxiety, depression, suicidal or homicidal ideation, hallucinations. PHYSICAL EXAMINATION Vital Signs - 24 hr 09/25/17 08:14 Temperature 100.0 F H Pulse Rate 66 Respiratory 18 Rate Blood Pressure 155/83 O2 Sat by Pulse 100 Oximetry (%) GENERAL: Awake, alert, and fully oriented, in no acute distress HEAD: Normal with no signs of trauma. EYES: Pupils equal, round and reactive to light, extraocular movements intact, sclera anicteric, conjunctiva clear. No lid lag. EARS, NOSE, THROAT: Ears normal, nares patent, oropharynx clear without exudates. Moist mucous membranes. NECK: Normal range of motion, supple without lymphadenopathy, JVD, or masses. LUNGS: diminished breath sound, home oxygen dependent, no wheezing, no accessory muscle use HEART: irregular, on Xarelto ABDOMEN: Soft, nontender, not distended, normoactive bowel sounds, no guarding, no rebound, no masses. No hepatomegaly or splenomegaly. UPPER EXTREMITIES: 2+ pulses, warm, well-perfused. No cyanosis. No clubbing. No peripheral edema. LOWER EXTREMITIES: +1 pitting edema on bilateral lower ext NEUROLOGICAL: Normal speech PSYCHIATRIC: Cooperative. Good eye contact. Appropriate mood and affect. SKIN: Warm, dry, normal turgor, no rashes or lesions noted, normal capillary refill. Laboratory Results - last 24 hr 09/25/17 09/25/17 09/25/17 09:26 09:26 09:26 WBC 18.3 H D RBC 4.04 Hgb 11.9 Hct 37.6 MCV 93.1 MCH 29.5 MCHC 31.7 L RDW 14.6 Plt Count 172 MPV 10.2 Neutrophils % 84.2 H Lymphocytes % 4.3 L D Monocytes % 10.8 H Eosinophils % 0.2 D Basophils % 0.5 Sodium 134 L Potassium 4.8 Chloride 100 Carbon Dioxide 25 Anion Gap 9 BUN 33 H D Creatinine 1.3 Creat Clearance w eGFR 55.94 Random Glucose 134 H Calcium 8.5 Total Bilirubin 0.5 AST 24 ALT 29 D Alkaline Phosphatase 132 H D Creatine Kinase 43 Troponin I < 0.02 B-Natriuretic Peptide 1178.19 H Cancelled Total Protein 7.1 Albumin 3.7 Urine Color Urine Appearance Urine pH Ur Specific [place] Urine Protein Urine Glucose (UA) Urine Ketones Urine Blood Urine Nitrite Urine Bilirubin Urine Urobilinogen Ur Leukocyte Esterase Urine WBC (Auto) Urine RBC (Auto) Ur Epithelial Cells Urine Bacteria Urine Mucus 09/25/17 12:01 WBC RBC Hgb Hct MCV MCH MCHC RDW Plt Count MPV Neutrophils % Lymphocytes % Monocytes % Eosinophils % Basophils % Sodium Potassium Chloride Carbon Dioxide Anion Gap BUN Creatinine Creat Clearance w eGFR Random Glucose Calcium Total Bilirubin AST ALT Alkaline Phosphatase Creatine Kinase Troponin I B-Natriuretic Peptide Total Protein Albumin Urine Color Yellow Urine Appearance Clear Urine pH 5.0 Ur Specific [place] 1.020 Urine Protein 1+ H Urine Glucose (UA) Negative Urine Ketones Negative Urine Blood 1+ H Urine Nitrite Negative Urine Bilirubin Negative Urine Urobilinogen Negative Ur Leukocyte Esterase Negative Urine WBC (Auto) 1 Urine RBC (Auto) 2 Ur Epithelial Cells Rare Urine Bacteria Rare Urine Mucus Rare ASSESSMENT/PLAN: Patient is a 61 year old male with significant past medical history of of newly diagnosed atrial fibrillation (on Xarelto), CHF, HTN, PAD, venous ulcerations on bilateral lower extremities and opioid dependence (on methadone). On 2016 he underwent a aorto-bifemoral bypass and was an ICU admission in December 2016. He was admitted today with worsening cough and shortness of breath with exertion. He states that he is home oxygen dependent on 2 liters of nasal cannula which he states he is compliant with. However, he is normally able to get up and ambulate his 22 steps at home but now it is getting harder for his to do so. He is requiring more periods of physical inactivity to catch his breath. He states he has been compliant with all his home medications and home oxygen. His sales and service engineer is Dr. Burns and he was scheduled to see him on Wednesday but decided to come to the ER for relief of dyspnea and cough. Labs show elevated WBC of 18.3, NA 134, BNP 1178. Chest xray shows no acute pathology. On exam, he was comfortable at rest, in no acute distress. Lungs diminished bilaterally. +1 lower ext edema bilaterally. Patient is on Xarelto and states compliance. Will doppler to rule out DVT. He states he had an an episode of right sided chest pain on admission, but denies any further chest pain. He denies fevers, chills, vomiting or diarrhea. He was noted to be mildly wheezing in the ED. Lungs were diminished to auscultation on my exam. Imaging: Chest xray: cxr no acute infiltrate. Negative influenza EKG: SB with sinus arrythmia, non specific t wave abnormality Pulmonary: Shortness of breath/Cough, acute Rule out Pneumonia/Progressive heart failure BNP elevated at 1178, but lower than previous admission Will give Lasix 20mg push x 1 now Given Levaquin 750mg IV in ED Chest xray negative but patient has significant co-morb. with elevated CBC, mild fever and symptomatic with cough Blood and urine cultures sent ID: Sepsis, rule out Temp 100, WBC 18.3, hypoxia Chest xray negative Will send for CT scan of chest Blood, urine cultures pending ID consulted Cardiology: History of Afib with RVR - now sinus rhythm/sinus bradycardia Assessment/Plan: Continue Xarelto 20mg daily, Lopressor 50mg BID On home Lasix 40mg daily Outpatient sales and service engineer is Dr. Burns Chest pain, resolved trend troponins Vascular: PAD with distal aorta and external iliac occlusion s/p aorto-bifemoral bypass on 12/30/16 bilateral foot pulses warm to touch, denies pain or discomfort No abdominal pain Bilateral venous stasis wounds - chronic Endocrine: Diabetes mellitus, chronic On Metformin 500mg BID - HOLD Novolog sliding scale now Psyche: Polysubstance abuse Assessment/Plan: Methadone 70mg daily F.E.N. Fluids: none needed Electrolytes: monitor Nutrition: diabetic diet Disposition: Full Code.
[2017-09-25] MEDS ORDERED: INSULIN SLIDING SCALE (NOVOLOG) 1 VIAL SQ SCH (16:30)
[2017-09-25] MEDS: INSULIN SLIDING SCALE (NOVOLOG) 1 VIAL SQ SCH ×2 (17:06→21:42)
[2017-09-25] MEDS ORDERED: FUROSEMIDE 40 MG/4 ML INJECTABLE VIAL ONE (19:21)
[2017-09-25] MEDS ORDERED: FUROSEMIDE 40 MG/4 ML INJECTABLE VIAL IVPUSH ONE (19:30)
[2017-09-25] MEDS ORDERED: METOPROLOL TARTRATE 50 MG TABLET (FP) ONE (21:33)
[2017-09-25] MEDS ORDERED: VALSARTAN 80 MG TABLET (UD) ONE (21:34)
[2017-09-25] MEDS: VALSARTAN 160 MG TABLET (UD) PO SCH (21:42)
[2017-09-25] MEDS: METOPROLOL TARTRATE 50 MG TABLET (FP) PO SCH (21:42)
[2017-09-26 01:49] VITALS: BMI 27.6
[2017-09-26] MEDS: INSULIN SLIDING SCALE (NOVOLOG) 1 VIAL SQ SCH ×4 (06:15→21:54)
[2017-09-26] MEDS ORDERED: INSULIN (NOVOLOG) ASPART 100 UNITS/ML 10ML VIAL ONE (06:19)
[2017-09-26] MEDS ORDERED: LEVOFLOXACIN 500 MG IVPB 500 MG/100 ML BAG IVPB SCH (08:00)
[2017-09-26 08:27] LABS: HEMATOCRIT 37.4 % (35.4-49); HEMOGLOBIN 11.9 GM/dL (11.7-16.9); MCH 29.4 pg (25.7-33.7); MCHC 31.8 g/dl (32.0-35.9); MEAN CELL VOLUME 92.7 fl (80-96); MEAN PLT VOLUME 9.7 fl (7.5-11.1); PLATELET COUNT 167 K/MM3 (134-434); RBC 4.03 M/mm3 (4.00-5.60); RDW 15.2 % (11.9-15.9); WHITE BLOOD COUNT 10.6 K/mm3 (4.0-10.0)
[2017-09-26] MEDS ORDERED: METHADONE HCL 10 MG TABLET PO SCH (08:30)
[2017-09-26] MEDS ORDERED: METHADONE HCL 10 MG TABLET ONE (08:48)
[2017-09-26] MEDS ORDERED: METHADONE HCL 40 MG DISPERSABLE TABLET ONE (08:48)
[2017-09-26] MEDS ORDERED: PT OWN MED DRAWER 7, Y5N ONE ×2 (08:49→21:47)
[2017-09-26] MEDS: METHADONE 40 MG, METHADONE 30 MG PO SCH (08:50)
[2017-09-26 09:01] LABS: ALBUMIN 3.3 g/dl (3.4-5.0); ANION GAP 9 (8-16); BILIRUBIN,TOTAL 0.6 mg/dL (0.2-1.0); BLOOD UREA NITROGEN 38 mg/dL (7-18); CALCIUM 9.2 mg/dL (8.5-10.1); CHLORIDE 98 mmol/L (98-107); CO2 28 mmol/L (21-32); CREATININE 1.4 mg/dL (0.7-1.3); GLUCOSE,RANDOM 115 mg/dL (74-106); MAGNESIUM 2.4 mg/dL (1.8-2.4); POTASSIUM 4.4 mmol/L (3.5-5.1); SGOT/AST 16 U/L (15-37); SGPT/ALT 24 U/L (12-78); SODIUM 135 mmol/L (136-145); TOT PROT 7.1 g/dl (6.4-8.2)
[2017-09-26 09:02] LABS: ALK PHOS 118 U/L (45-117)
[2017-09-26] MEDS: METOPROLOL TARTRATE 50 MG TABLET (FP) PO SCH ×3 (09:06→22:01)
[2017-09-26] MEDS: FUROSEMIDE 20 MG TABLET (FP) PO SCH (09:06)
[2017-09-26 09:14] LABS: CHOLESTEROL 125 mg/dL (50-200)
[2017-09-26 09:19] LABS: LDL CHOLESTEROL (ONLY SJRH) 72 mg/dL (5-100)
[2017-09-26] MEDS: RIVAROXABAN 20 MG TABLET PO SCH (09:21)
[2017-09-26 09:25] LABS: HDL CHOLESTEROL 49 mg/dL (40-60); TRIGLYCERIDES 91 mg/dL (35-160)
[2017-09-26] MEDS ORDERED: METHADONE HCL 40 MG DISPERSABLE TABLET PO SCH (10:00)
--- NOTE | 2017-09-26 10:53 | CON.CARD ---
Consult Consult Specialty:: Cardiology Referred by:: Hospitalist Reason for Consultation:: Cardiac evaluation - History of Present Illness Chief Complaint: Shortness of breath and cough History of Present Illness: Patient is a 62 year old male well known to our service ([place] Torch Operator: Dr. Lei Burns) with underlying history of atrial fibrillation on NOAC (Xarelto), congestive heart failure, hypertension, PAD with history of venous ulceration, opioid dependence (on Methadone for previous Heroine use). Patient had aorto- bifemoral bypass in December of last year. He was admitted to ED with worsening shortness of breath on exertion and productive cough. He is O2 dependent. He denies chest pain or palpitations. He denies paroxysmal nocturnal dyspnea or orthopnea. He denies fever or chills. He denies nausea, vomiting, diarrhea or abdominal pain. He denies headache or lightheadedness. - History Source History Provided By: Patient, Medical Record Limitations to Obtaining History: No Limitations - Past Medical History Cardio/Vascular: Yes: AFIB, CHF, HTN Psych: Yes: Depression - Past Surgical History Past Surgical History: Yes: Bypass - Alcohol/Substance Use Hx Alcohol Use: No History of Substance Use: reports: Heroin - Smoking History Smoking history: Former smoker Have you smoked in the past 12 months: No Aproximately how many cigarettes per day: 10 If you are a former smoker, when did you quit?: 2016 - Social History ADL: Independent History of Recent Travel: No Home Medications - Allergies Allergies/Adverse Reactions: Allergies Allergy/AdvReac Type Severity Reaction Status Date / Time Penicillins Allergy Verified 09/25/17 08:16 - Home Medications Home Medications: Ambulatory Orders Furosemide [Lasix] 20 mg PO DAILY 09/25/17 Metformin HCl [Glucophage -] 500 mg PO BID 09/25/17 Methadone [Dolophine -] 70 mg PO DAILY 09/25/17 Metoprolol Tartrate [Lopressor -] 50 mg PO BID 09/25/17 Rivaroxaban [Xarelto -] 20 mg PO DAILY 09/25/17 Valsartan 320 mg PO HS 09/25/17 Review of Systems - Review of Systems Constitutional: denies: Chills, Fever Eyes: reports: No Symptoms HENT: reports: No Symptoms Cardiovascular: reports: Shortness of Breath. denies: Chest Pain, Palpitations Respiratory: reports: Cough. denies: Hemoptysis, Orthopnea, PND, SOB, SOB on Exertion, Wheezing Gastrointestinal: denies: Abdominal Pain, Constipation, Diarrhea, Melena, Nausea , Rectal Bleeding, Vomiting Genitourinary: denies: Dysuria, Frequency Neurological: denies: Dizziness, Headache, Seizure, Syncope Vital Signs: Vital Signs Temperature 99.9 F H 09/26/17 09:11 Pulse Rate 92 H 09/26/17 09:11 Respiratory Rate 20 09/26/17 09:11 Blood Pressure 100/72 09/26/17 09:11 O2 Sat by Pulse Oximetry (%) 96 09/26/17 08:00 Eyes: Yes: PERRL HENT: Yes: Atraumatic Neck: Yes: Supple Respiratory: Yes: Diminished Gastrointestinal: Yes: Normal Bowel Sounds, Soft. No: Tenderness Cardiovascular: Yes: Regular Rate and Rhythm JVD: No Carotid Bruit: No PMI: Non-Displaced Heart Sounds: Yes: S1, S2 Murmur: Yes: Systolic Murmur, Grade 1 Edema: Yes Edema: LLE: 1+, RLE: 1+ - Other Data Labs, Other Data: CBC, BMP 09/26/17 07:15 09/26/17 07:15 Troponin, BNP 09/26/17 01:05 Troponin I < 0.02 Laboratory Results - last 24 hr 09/25/17 09/26/17 09/26/17 21:39 01:05 06:11 WBC RBC Hgb Hct MCV MCH MCHC RDW Plt Count MPV Sodium Potassium Chloride Carbon Dioxide Anion Gap BUN Creatinine Creat Clearance w eGFR POC Glucometer [id number] 119 Random Glucose Hemoglobin A1c % Calcium Magnesium Total Bilirubin AST ALT Alkaline Phosphatase Troponin I < 0.02 Total Protein Albumin Triglycerides Cholesterol Total LDL Cholesterol HDL Cholesterol 09/26/17 09/26/17 09/26/17 07:15 07:15 07:15 WBC 10.6 H D RBC 4.03 Hgb 11.9 Hct 37.4 MCV 92.7 MCH 29.4 MCHC 31.8 L RDW 15.2 Plt Count 167 MPV 9.7 Sodium 135 L Potassium 4.4 Chloride 98 Carbon Dioxide 28 Anion Gap 9 BUN 38 H Creatinine 1.4 H Creat Clearance w eGFR 51.35 POC Glucometer Random Glucose 115 H Hemoglobin A1c % 6.1 H D Calcium 9.2 Magnesium 2.4 D Total Bilirubin 0.6 AST 16 D ALT 24 Alkaline Phosphatase 118 H Troponin I Total Protein 7.1 Albumin 3.3 L Triglycerides 91 Cholesterol 125 Total LDL Cholesterol 72 HDL Cholesterol 49 Sinus bradycardia, nonspecific T wave abnormality Echo: Report Reviewed (Normal LV function, moderate MR, mild TR (November 2016)) Imaging - Results Chest X-ray: Report Reviewed (No acute pathology) Cat Scan: Report Reviewed (Chest CT probable pneumonia, and atelectasis) Ultrasound: Report Reviewed (No DVT) EKG: Report Reviewed Problem List - Problems (1) PNA (pneumonia) Code(s): J18.9 - PNEUMONIA, UNSPECIFIED ORGANISM Qualifiers: Pneumonia type: due to unspecified organism Laterality: unspecified laterality Lung location: unspecified part of lung Qualified Code(s): J18.9 - Pneumonia, unspecified organism (2) CHF (congestive heart failure) Code(s): I50.9 - HEART FAILURE, UNSPECIFIED Qualifiers: Congestive heart failure type: diastolic Congestive heart failure chronicity: acute on chronic Qualified Code(s): I50.33 - Acute on chronic diastolic (congestive) heart failure (3) COPD (chronic obstructive pulmonary disease) Code(s): J44.9 - CHRONIC OBSTRUCTIVE PULMONARY DISEASE, UNSPECIFIED Qualifiers: COPD type: unspecified COPD Qualified Code(s): J44.9 - Chronic obstructive pulmonary disease, unspecified (4) Diastolic dysfunction Code(s): I51.9 - HEART DISEASE, UNSPECIFIED (5) Methadone dependence Code(s): F11.20 - OPIOID DEPENDENCE, UNCOMPLICATED (6) PAD (peripheral artery disease) Code(s): I73.9 - PERIPHERAL VASCULAR DISEASE, UNSPECIFIED (7) Paroxysmal atrial fibrillation Code(s): I48.0 - PAROXYSMAL ATRIAL FIBRILLATION (8) S/P aorto-bifemoral bypass surgery Code(s): Z95.828 - PRESENCE OF OTHER VASCULAR IMPLANTS AND GRAFTS Assessment/Plan 1. Clinical presentation suggests pneumonia 2. Diastolic dysfunction 3. Paroxysmal atrial fibrillation on NOAC 4, PAD s/p aorto-bifem bypass 5. History of Opioid dependence currently on Methadone treatment 6. History of non-compliance PLAN: 1. Antibiotic coverage 2. Continue Metoprolol and Valsartan as tolerated 3. Continue Xarelto 4. Diuretics. Monitor renal function and electrolytes Further plans are to follow Dorian Figueroa MD
--- NOTE | 2017-09-26 13:38 | CON.PULM ---
Consult Consult Specialty:: PULMONARY Referred by:: BENIGNO Reason for Consultation:: COPD - History of Present Illness Chief Complaint: SOB/COUGH/INTERMITTANT WHEEZE History of Present Illness: 62 year old male with PMH atrial fibrillation (on Xarelto), CHF ATRIAL FIB (LV diastolic dysfunction NYHA Class 0), COPD (Home O2 2L), HTN, PAD (distal aorta and external iliac occlusion, s/p aorto-bifemoral bypass on 12/30/16) and venous ulcerations on bilateral lower extremities, opioid dependence (on methadone) presenting with fever, cough, myalgias, and worsening SOB over the past two days. States that he has been feeling warm at home but has not measured a fever. His cough is productive for clear sputum and he has some muscular back pain. His O2 requirement has not increased but he has less exercise tolerance. He did have a very brief episode of chest pain last night for about 10 seconds on the right sided. Denies nausea, vomiting, diarrhea, constipation, active chest pain, or other sick symptoms. 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 No: Cancer, O2 Dependent Gastrointestinal: No: Ascites Heme/Onc: No: Anemia Psych: Yes: Addictions, Depression - Alcohol/Substance Use Hx Alcohol Use: No History of Substance Use: reports: Heroin - Smoking History Smoking history: Former smoker Have you smoked in the past 12 months: No Aproximately how many cigarettes per day: 10 If you are a former smoker, when did you quit?: 2016 - Social History ADL: Independent History of Recent Travel: No Home Medications - Allergies Allergies/Adverse Reactions: Allergies Allergy/AdvReac Type Severity Reaction Status Date / Time Penicillins Allergy Verified 09/25/17 08:16 - Home Medications Home Medications: Ambulatory Orders Furosemide [Lasix] 20 mg PO DAILY 09/25/17 Metformin HCl [Glucophage -] 500 mg PO BID 09/25/17 Methadone [Dolophine -] 70 mg PO DAILY 09/25/17 Metoprolol Tartrate [Lopressor -] 50 mg PO BID 09/25/17 Rivaroxaban [Xarelto -] 20 mg PO DAILY 09/25/17 Valsartan 320 mg PO HS 09/25/17 Family Disease History - Family Disease History Family History: Unremarkable Review of Systems - Review of Systems Constitutional: denies: Fever, Loss of Appetite Eyes: denies: Blurred Vision HENT: denies: Difficult Swallowing Neck: denies: Decreased ROM Cardiovascular: reports: Shortness of Breath. denies: Chest Pain Respiratory: reports: Cough, Exercise Intolerance, SOB, Wheezing. denies: Hemoptysis Gastrointestinal: denies: Abdominal Pain Genitourinary: denies: Burning Physical Exam Vital Sings: Vital Signs Temperature 99.9 F H 09/26/17 09:11 Pulse Rate 92 H 09/26/17 09:11 Respiratory Rate 20 09/26/17 09:11 Blood Pressure 100/72 09/26/17 09:11 O2 Sat by Pulse Oximetry (%) 96 09/26/17 08:00 Constitutional: Yes: Calm Eyes: Yes: EOM Intact HENT: Yes: Normocephalic Neck: Yes: Trachea Midline Cardiovascular: Yes: S1. No: Regular Rate and Rhythm, S2 Respiratory: Yes: Wheezes (MINIMAL B/L END EXP WHEEZE). No: Poor Air Entry Gastrointestinal: Yes: Soft Renal/: Yes: WNL Edema: No Neurological: Yes: Alert Labs: CBC, BMP 09/26/17 07:15 09/26/17 07:15 REST REVIEWED Imaging - Results Chest X-ray: Report Reviewed, Image Reviewed Cat Scan: Report Reviewed, Image Reviewed Problem List - Problems (1) PNA (pneumonia) Code(s): J18.9 - PNEUMONIA, UNSPECIFIED ORGANISM Qualifiers: Pneumonia type: due to unspecified organism Laterality: unspecified laterality Lung location: unspecified part of lung Qualified Code(s): J18.9 - Pneumonia, unspecified organism (2) Atrial fibrillation with rapid ventricular response Code(s): I48.91 - UNSPECIFIED ATRIAL FIBRILLATION (3) CHF (congestive heart failure) Code(s): I50.9 - HEART FAILURE, UNSPECIFIED Qualifiers: Congestive heart failure type: diastolic Congestive heart failure chronicity: acute on chronic Qualified Code(s): I50.33 - Acute on chronic diastolic (congestive) heart failure (4) COPD (chronic obstructive pulmonary disease) Code(s): J44.9 - CHRONIC OBSTRUCTIVE PULMONARY DISEASE, UNSPECIFIED (5) Diastolic dysfunction Code(s): I51.9 - HEART DISEASE, UNSPECIFIED (6) Leukocytosis Code(s): D72.829 - ELEVATED WHITE BLOOD CELL COUNT, UNSPECIFIED Qualifiers: Leukocytosis type: unspecified Qualified Code(s): D72.829 - Elevated white blood cell count, unspecified
--- NOTE | 2017-09-26 13:47 | PN ---
Physical Exam: SUBJECTIVE: Patient seen and examined, reports non productive cough. OBJECTIVE: Vital Signs Period Temp Pulse Resp BP Sys/Chatterjee Pulse Ox Last 24 Hr 97.7 F-99.9 F 60-92 18-20 100-130/52-72 93-97 GENERAL: Awake, alert, and fully oriented, in no acute distress HEAD: Normal with no signs of trauma. EYES: Pupils equal, round and reactive to light, extraocular movements intact, sclera anicteric, conjunctiva clear. No lid lag. EARS, NOSE, THROAT: Ears normal, nares patent, oropharynx clear without exudates. Moist mucous membranes. NECK: Normal range of motion, supple without lymphadenopathy, JVD, or masses. LUNGS: diminished breath sound, home oxygen dependent, no wheezing, no accessory muscle use HEART: irregular, on Xarelto ABDOMEN: Soft, nontender, not distended, normoactive bowel sounds, no guarding, no rebound, no masses. No hepatomegaly or splenomegaly. UPPER EXTREMITIES: 2+ pulses, warm, well-perfused. No cyanosis. No clubbing. No peripheral edema. LOWER EXTREMITIES: +1 pitting edema on bilateral lower ext, no open lesions NEUROLOGICAL: Normal speech PSYCHIATRIC: Cooperative. Good eye contact. Appropriate mood and affect. Laboratory Results - last 24 hr 09/25/17 09/25/17 09/26/17 16:53 21:39 01:05 WBC RBC Hgb Hct MCV MCH MCHC RDW Plt Count MPV Sodium Potassium Chloride Carbon Dioxide Anion Gap BUN Creatinine Creat Clearance w eGFR POC Glucometer [phone] Random Glucose Hemoglobin A1c % Calcium Magnesium Total Bilirubin AST ALT Alkaline Phosphatase Troponin I < 0.02 Total Protein Albumin Triglycerides Cholesterol Total LDL Cholesterol HDL Cholesterol 09/26/17 09/26/17 09/26/17 06:11 07:15 07:15 WBC 10.6 H D RBC 4.03 Hgb 11.9 Hct 37.4 MCV 92.7 MCH 29.4 MCHC 31.8 L RDW 15.2 Plt Count 167 MPV 9.7 Sodium 135 L Potassium 4.4 Chloride 98 Carbon Dioxide 28 Anion Gap 9 BUN 38 H Creatinine 1.4 H Creat Clearance w eGFR 51.35 POC Glucometer 119 Random Glucose 115 H Hemoglobin A1c % Calcium 9.2 Magnesium 2.4 D Total Bilirubin 0.6 AST 16 D ALT 24 Alkaline Phosphatase 118 H Troponin I Total Protein 7.1 Albumin 3.3 L Triglycerides 91 Cholesterol 125 Total LDL Cholesterol 72 HDL Cholesterol 49 09/26/17 09/26/17 09/26/17 07:15 07:30 11:03 WBC RBC Hgb Hct MCV MCH MCHC RDW Plt Count MPV Sodium Potassium Chloride Carbon Dioxide Anion Gap BUN Creatinine Creat Clearance w eGFR POC Glucometer 164 Random Glucose Hemoglobin A1c % 6.1 H D Calcium Magnesium Total Bilirubin AST ALT Alkaline Phosphatase Troponin I Total Protein Albumin Triglycerides Cancelled Cholesterol Cancelled Total LDL Cholesterol Cancelled HDL Cholesterol Cancelled Active Medications Generic Name Dose Route Start Last Admin Trade Name Freq PRN Reason Stop Dose Admin Furosemide 20 mg 09/26/17 10:00 09/26/17 09:06 Lasix - PO 20 mg DAILY DOMINIC Administration Levofloxacin 500 mg in 100 mls @ 100 mls/hr 09/26/17 08:00 09/26/17 08:51 Levaquin 500 Mg Premixed Ivpb - IVPB 100 mls/hr DAILY@0800 DOMINIC Administration Insulin Aspart 1 vial 09/25/17 16:30 09/26/17 11:28 Novolog Vial Sliding Scale - SQ 2 units ACHS DOMINIC Administration Protocol Methadone HCl 40 mg/ Methadone 70 mg 09/26/17 08:45 09/26/17 08:50 HCl 30 mg PO 70 mg DAILY@0600 DOMINIC Administration Metoprolol Tartrate 50 mg 09/25/17 22:00 09/26/17 09:06 Lopressor - PO 50 mg BID DOMINIC Administration Rivaroxaban 20 mg 09/26/17 10:00 09/26/17 09:21 Xarelto - PO 20 mg DAILY DOMINIC Administration Valsartan 320 mg 09/25/17 22:00 09/25/17 21:42 Diovan - PO 320 mg HS DOMINIC Administration ASSESSMENT/PLAN: Patient is a 61 year old male with significant past medical history of of newly diagnosed atrial fibrillation (on Xarelto), CHF, HTN, PAD, venous ulcerations on bilateral lower extremities and opioid dependence (on methadone). On 2016 he underwent a aorto-bifemoral bypass and was an ICU admission in December 2016. He was admitted today with worsening cough and shortness of breath with exertion. He states that he is home oxygen dependent on 2 liters of nasal cannula which he states he is compliant with. However, he is normally able to get up and ambulate his 22 steps at home but now it is getting harder for his to do so. He is requiring more periods of physical inactivity to catch his breath. He states he has been compliant with all his home medications and home oxygen. His wood machinist is Dr. Burns and he was scheduled to see him on Wednesday but decided to come to the ER for relief of dyspnea and cough. Labs show elevated WBC of 18.3, NA 134, BNP 1178. Chest xray shows no acute pathology. On exam, he was comfortable at rest, in no acute distress. Lungs diminished bilaterally. +1 lower ext edema bilaterally. Patient is on Xarelto and states compliance. Will doppler to rule out DVT. He states he had an an episode of right sided chest pain on admission, but denies any further chest pain. He denies fevers, chills, vomiting or diarrhea. He was noted to be mildly wheezing in the ED. Lungs were diminished to auscultation on my exam. Imaging: Chest xray: cxr no acute infiltrate. Negative influenza EKG: SB with sinus arrythmia, non specific t wave abnormality Vascular lower ext negative for DVT CT Chest 09/25/2017: Evaluation of the lung sun demonstrate a mild degree of patchy consolidation within the RLL suspicious for a developing pneumonia. Also atelectatic changes involing the RLL, as well as RML and lingular segment of the upper lobe anteriorly. No pulmonary massess or pleural effusions are identified. There is a 5mm peripheral nodule within the right middle lobe. Short term, three month CT follow up recommended. Questionable developing pneumonia RLL, areas of atelectasis bilaterally. Pulmonary: Shortness of breath/Cough, acute Rule out Pneumonia/Progressive heart failure BNP elevated at 1178, but lower than previous admission CT chest with questionable developing pneumonia RLL, areas of atelectasis bilaterally. 5mm peripheral nodule within the right middle lobe which needs to be followed up as an outpatient with a [address] follow up. On Levaquin 500mg IV daily, WBC improving Blood and urine cultures pending Patient NEGATIVE for flu, however as per pulmonary recommendation, will start on Tamiflu for flu like symptoms. ID: Sepsis, rule out Low grade temps, mild tachycardia, hypoxia-02 dependent but not at baseline, leukocytosis improving On Levaquin 500mg IV Blood, urine cultures pending ID consulted Cardiology: History of Afib with RVR Continue Xarelto 20mg daily, Lopressor 50mg BID On home Lasix 40mg PO daily Outpatient wood machinist is Dr. Burns who patient states he has followed up with, had an appt on 09/28 Chest pain, resolved Troponins negative x 2 Vascular: PAD with distal aorta and external iliac occlusion s/p aorto-bifemoral bypass on 12/30/16 bilateral foot pulses warm to touch, denies pain or discomfort States his toes are chronically numb Bilateral venous stasis wounds - chronic Endocrine: Diabetes mellitus, chronic On Metformin 500mg BID - HOLD Novolog sliding scale now Psyche: Polysubstance abuse Assessment/Plan: Methadone 70mg daily F.E.N. Fluids: none needed Electrolytes: monitor Nutrition: diabetic diet Disposition: Full Code. Visit type - Emergency Visit Emergency Visit: Yes ED Registration Date: 09/25/17 Care time: The patient presented to the Emergency Department on the above date and was hospitalized for further evaluation of their emergent condition. - New Patient This patient is new to me today: No - Critical Care Critical Care patient: No - Discharge Referral Referred to [facility] Med P.C.: No
[2017-09-26] MEDS ORDERED: ALBUTEROL SO4 2.5/IPRATROPIUM 0.5 INH SOL 3 ML VIAL.NEB. NEB PRN (14:43)
--- NOTE | 2017-09-26 14:46 | CON.ID ---
Consult Consult Specialty:: infectious diseases Reason for Consultation:: PNA - History of Present Illness Chief Complaint: cough History of Present Illness: 61 year old male with past medical history of of newly diagnosed atrial fibrillation , CHF, HTN, PAD, venous ulcerations on bilateral lower extremities and opioid dependence (on methadone). patient underwent a aorto-bifemoral bypass He was admitted today with worsening cough and shortness of breath with exertion. He states that he is home oxygen dependent on 2 liters of nasal cannula which he states he is compliant with. patients dyspnea has increased and patient came to the hospital for further management Labs show elevated WBC of 18.3, NA 134, BNP 1178. 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 No: Cancer, O2 Dependent Gastrointestinal: No: Ascites Psych: Yes: Addictions, Depression - Alcohol/Substance Use Hx Alcohol Use: No History of Substance Use: reports: Heroin - Smoking History Smoking history: Former smoker Have you smoked in the past 12 months: No Aproximately how many cigarettes per day: 10 If you are a former smoker, when did you quit?: 2016 - Social History ADL: Independent History of Recent Travel: No Home Medications - Allergies Allergies/Adverse Reactions: Allergies Allergy/AdvReac Type Severity Reaction Status Date / Time Penicillins Allergy Verified 09/25/17 08:16 - Home Medications Home Medications: Ambulatory Orders Furosemide [Lasix] 20 mg PO DAILY 09/25/17 Metformin HCl [Glucophage -] 500 mg PO BID 09/25/17 Methadone [Dolophine -] 70 mg PO DAILY 09/25/17 Metoprolol Tartrate [Lopressor -] 50 mg PO BID 09/25/17 Rivaroxaban [Xarelto -] 20 mg PO DAILY 09/25/17 Valsartan 320 mg PO HS 09/25/17 Review of Systems - Review of Systems Constitutional: reports: No Symptoms Eyes: reports: No Symptoms HENT: reports: No Symptoms Neck: reports: No Symptoms Cardiovascular: reports: No Symptoms Respiratory: reports: Cough, SOB, SOB on Exertion Gastrointestinal: reports: No Symptoms Musculoskeletal: reports: No Symptoms Integumentary: reports: No Symptoms Neurological: reports: No Symptoms Endocrine: reports: No Symptoms Hematology/Lymphatic: reports: No Symptoms Psychiatric: reports: No Symptoms Physical Exam Vital Signs: Vital Signs Temperature 99.7 F H 09/26/17 14:41 Pulse Rate 112 H 09/26/17 14:41 Respiratory Rate 20 09/26/17 14:41 Blood Pressure 109/83 09/26/17 14:41 O2 Sat by Pulse Oximetry (%) 96 09/26/17 08:00 Constitutional: Yes: No Distress, Calm Eyes: Yes: Conjunctiva Clear Cardiovascular: Yes: S1, S2 Respiratory: Yes: On Nasal O2, Poor Air Entry, Rhonchi Gastrointestinal: Yes: Normal Bowel Sounds, Soft Musculoskeletal: Yes: WNL Extremities: Yes: WNL Neurological: Yes: Alert, Oriented Psychiatric: Yes: Alert, Oriented Labs: CBC, BMP 09/26/17 07:15 09/26/17 07:15 Imaging - Results Chest X-ray: Report Reviewed, Image Reviewed Cat Scan: Report Reviewed, Image Reviewed Assessment/Plan Problem List - Problems (1) PNA (pneumonia) Code(s): J18.9 - PNEUMONIA, UNSPECIFIED ORGANISM Qualifiers: Pneumonia type: due to unspecified organism Laterality: unspecified laterality Lung location: unspecified part of lung Qualified Code(s): J18.9 - Pneumonia, unspecified organism (2) Diastolic dysfunction Code(s): I51.9 - HEART DISEASE, UNSPECIFIED (3) Methadone dependence Code(s): F11.20 - OPIOID DEPENDENCE, UNCOMPLICATED (4) PAD (peripheral artery disease) Code(s): I73.9 - PERIPHERAL VASCULAR DISEASE, UNSPECIFIED (5) Paroxysmal atrial fibrillation Code(s): I48.0 - PAROXYSMAL ATRIAL FIBRILLATION (6) S/P aorto-bifemoral bypass surgery Code(s): Z95.828 - PRESENCE OF OTHER VASCULAR IMPLANTS AND GRAFTS plan will start patient on abx incentive allyson await for all cx reports rest as per primary team
[2017-09-26] MEDS ORDERED: AZTREONAM 1 GM in DEXTROSE 5%-WATER - 50 ML IVPB SCH (15:00)
[2017-09-26] MEDS: CLINDAMYCIN HCL 150 MG CAPSULE (FP) PO SCH (17:21)
[2017-09-26] MEDS: AZTREONAM 1 GRAM SYRINGE 1 GM/10 ML DISP.SYRIN IVPUSH SCH (17:21)
[2017-09-26] MEDS: VALSARTAN 160 MG TABLET (UD) PO SCH ×2 (21:54→22:02)
[2017-09-26] MEDS ORDERED: OSELTAMIVIR PHOSPHATE 75 MG CAPSULE PO SCH (22:00)
[2017-09-27] MEDS: CLINDAMYCIN HCL 150 MG CAPSULE (FP) PO SCH ×4 (00:21→16:59)
[2017-09-27] MEDS: AZTREONAM 1 GRAM SYRINGE 1 GM/10 ML DISP.SYRIN IVPUSH SCH ×3 (01:28→18:23)
[2017-09-27] MEDS ORDERED: METHADONE HCL 10 MG TABLET ONE (05:55)
[2017-09-27] MEDS ORDERED: METHADONE HCL 40 MG DISPERSABLE TABLET ONE (05:55)
[2017-09-27] MEDS: METHADONE 40 MG, METHADONE 30 MG PO SCH (06:02)
[2017-09-27] MEDS: INSULIN SLIDING SCALE (NOVOLOG) 1 VIAL SQ SCH ×4 (06:03→21:16)
[2017-09-27 08:23] LABS: BASO % 0.5 % (0-2.0); HEMOGLOBIN 11.1 GM/dL (11.7-16.9); LYMPH % 13.9 % (8-40); MCH 29.3 pg (25.7-33.7); MCHC 31.7 g/dl (32.0-35.9); MEAN CELL VOLUME 92.5 fl (80-96); MEAN PLT VOLUME 9.6 fl (7.5-11.1); MONO % 14.8 % (3.8-10.2); NEUT % 69.8 % (42.8-82.8); PLATELET COUNT 178 K/MM3 (134-434); RBC 3.79 M/mm3 (4.00-5.60); RDW 14.4 % (11.9-15.9); WHITE BLOOD COUNT 10.1 K/mm3 (4.0-10.0)
[2017-09-27 08:37] LABS: ALBUMIN 3.1 g/dl (3.4-5.0); ANION GAP 7 (8-16); BLOOD UREA NITROGEN 36 mg/dL (7-18); CALCIUM 8.5 mg/dL (8.5-10.1); CHLORIDE 101 mmol/L (98-107); CO2 30 mmol/L (21-32); GLUCOSE,RANDOM 98 mg/dL (74-106); MAGNESIUM 2.3 mg/dL (1.8-2.4); POTASSIUM 4.9 mmol/L (3.5-5.1); SODIUM 138 mmol/L (136-145)
[2017-09-27 08:42] LABS: ALK PHOS 113 U/L (45-117); BILIRUBIN,TOTAL 0.6 mg/dL (0.2-1.0); CREATININE 1.2 mg/dL (0.7-1.3); SGOT/AST 15 U/L (15-37); SGPT/ALT 25 U/L (12-78); TOT PROT 6.6 g/dl (6.4-8.2)
[2017-09-27] MEDS: RIVAROXABAN 20 MG TABLET PO SCH (09:45)
[2017-09-27] MEDS: METOPROLOL TARTRATE 50 MG TABLET (FP) PO SCH ×3 (09:45→21:16)
[2017-09-27] MEDS: FUROSEMIDE 20 MG TABLET (FP) PO SCH (09:45)
[2017-09-27] MEDS ORDERED: INSULIN (NOVOLOG) ASPART 100 UNITS/ML 10ML VIAL ONE ×3 (10:42→21:02)
--- NOTE | 2017-09-27 11:00 | PN ---
Progress Note, Physician History of Present Illness: Dyspnea on exertion and cough improving, denies orthopnea. - Current Medication List Current Medications: Active Medications Albuterol/Ipratropium (Duoneb -) 1 amp NEB Q6H PRN PRN Reason: SHORTNESS OF BREATH Clindamycin HCl (Cleocin -) 300 mg PO Q6HPO [facility] Last Admin: 09/27/17 06:02 Dose: 300 mg Furosemide (Lasix -) 20 mg PO DAILY [facility] Last Admin: 09/27/17 09:45 Dose: 20 mg Aztreonam (Azactam (Restricted To Id) -) 1 gm in 10 mls @ 120 mls/hr IVPUSH Q8H -IV [facility] Last Admin: 09/27/17 09:45 Dose: 120 mls/hr Insulin Aspart (Novolog Vial Sliding Scale -) 1 vial SQ ACHS [facility] PRN Reason: Protocol Last Admin: 09/27/17 10:48 Dose: 4 units Methadone HCl 40 mg/ Methadone (HCl 30 mg) 70 mg PO DAILY@0600 [facility] Last Admin: 09/27/17 06:02 Dose: 70 mg Metoprolol Tartrate (Lopressor -) 50 mg PO BID [facility] Last Admin: 09/27/17 09:45 Dose: 50 mg Rivaroxaban (Xarelto -) 20 mg PO DAILY [facility] Last Admin: 09/27/17 09:45 Dose: 20 mg Valsartan (Diovan -) 320 mg PO HS [facility] Last Admin: 09/26/17 22:02 Dose: Not Given - Objective Vital Signs: Vital Signs Temperature 98.1 F 09/27/17 06:00 Pulse Rate 93 H 09/27/17 06:00 Respiratory Rate 20 09/27/17 06:00 Blood Pressure 118/63 09/27/17 06:00 O2 Sat by Pulse Oximetry (%) 97 09/27/17 06:00 Constitutional: Yes: No Distress, Calm Neck: Yes: Supple Cardiovascular: Yes: Regular Rate and Rhythm Respiratory: Yes: Regular, Diminished, On Nasal O2 Gastrointestinal: Yes: Normal Bowel Sounds, Soft Edema: No Labs: CBC, BMP 09/27/17 07:33 09/27/17 07:33 - ....Imaging Cat Scan: Report Reviewed (Developing RLL PNA) Ultrasound: Report Reviewed (Neg DVT) Problem List - Problems (1) PNA (pneumonia) Code(s): J18.9 - PNEUMONIA, UNSPECIFIED ORGANISM Qualifiers: Pneumonia type: due to unspecified organism Laterality: unspecified laterality Lung location: unspecified part of lung Qualified Code(s): J18.9 - Pneumonia, unspecified organism (2) Diastolic dysfunction Code(s): I51.9 - HEART DISEASE, UNSPECIFIED (3) Methadone dependence Code(s): F11.20 - OPIOID DEPENDENCE, UNCOMPLICATED (4) PAD (peripheral artery disease) Code(s): I73.9 - PERIPHERAL VASCULAR DISEASE, UNSPECIFIED (5) Paroxysmal atrial fibrillation Code(s): I48.0 - PAROXYSMAL ATRIAL FIBRILLATION (6) S/P aorto-bifemoral bypass surgery Code(s): Z95.828 - PRESENCE OF OTHER VASCULAR IMPLANTS AND GRAFTS Assessment/Plan 1. Clinical presentation suggests RLL pneumonia 2. Diastolic dysfunction 3. Paroxysmal atrial fibrillation on NOAC 4, PAD s/p aorto-bifem bypass 5. History of Opioid dependence currently on Methadone treatment 6. History of non-compliance PLAN: 1. Complete antibiotic coverage 2. Continue Metoprolol 50 bid and Valsartan 320 qd 3. Continue Xarelto 20 qd 4. Lasix 20 qd with monitor diuretic response, renal function and electrolytes
--- NOTE | 2017-09-27 11:11 | PN ---
Progress Note (short form) - Note Progress Note: Reports feeling overall better today. Cough and SOB is improving. No hemoptysis. Intake & Output 09/24/17 09/25/17 09/26/17 09/27/17 23:59 23:59 23:59 23:59 Intake Total 760 10 Balance 760 10 Weight 181 lb 9 oz Last Vital Signs Temp Pulse Resp BP Pulse Ox 98.1 F 93 H 20 118/63 97 09/27/17 06:00 09/27/17 06:00 09/27/17 06:00 09/27/17 06:00 09/27/17 06:00 Active Medications Albuterol/Ipratropium (Duoneb -) 1 amp NEB Q6H PRN PRN Reason: SHORTNESS OF BREATH Clindamycin HCl (Cleocin -) 300 mg PO Q6HPO [facility] Last Admin: 09/27/17 06:02 Dose: 300 mg Furosemide (Lasix -) 20 mg PO DAILY [facility] Last Admin: 09/27/17 09:45 Dose: 20 mg Aztreonam (Azactam (Restricted To Id) -) 1 gm in 10 mls @ 120 mls/hr IVPUSH Q8H -IV [facility] Last Admin: 09/27/17 09:45 Dose: 120 mls/hr Insulin Aspart (Novolog Vial Sliding Scale -) 1 vial SQ ACHS [facility] PRN Reason: Protocol Last Admin: 09/27/17 10:48 Dose: 4 units Methadone HCl 40 mg/ Methadone (HCl 30 mg) 70 mg PO DAILY@0600 [facility] Last Admin: 09/27/17 06:02 Dose: 70 mg Metoprolol Tartrate (Lopressor -) 50 mg PO BID [facility] Last Admin: 09/27/17 09:45 Dose: 50 mg Rivaroxaban (Xarelto -) 20 mg PO DAILY [facility] Last Admin: 09/27/17 09:45 Dose: 20 mg Valsartan (Diovan -) 320 mg PO HS [facility] Last Admin: 09/26/17 22:02 Dose: Not Given Constitutional: Yes: Awake and alert, NAD Eyes: Yes: EOM Intact HENT: Yes: Normocephalic Neck: Yes: Trachea Midline Cardiovascular: Yes: S1. No: Regular Rate and Rhythm, S2 Respiratory: Yes: Minimal scattered rhonchi, no Wheezes Gastrointestinal: Yes: Soft Renal/: Yes: WNL Edema: No Neurological: Yes: Alert Labs: Laboratory Results - last 24 hr 09/26/17 09/26/17 09/26/17 11:03 17:10 21:52 WBC RBC Hgb Hct MCV MCH MCHC RDW Plt Count MPV Neutrophils % Lymphocytes % Monocytes % Eosinophils % Basophils % Sodium Potassium Chloride Carbon Dioxide Anion Gap BUN Creatinine Creat Clearance w eGFR POC Glucometer 164 129 150 Random Glucose Calcium Magnesium Total Bilirubin AST ALT Alkaline Phosphatase Total Protein Albumin 09/27/17 09/27/17 09/27/17 06:00 07:33 07:33 WBC 10.1 H RBC 3.79 L Hgb 11.1 L Hct 35.0 L MCV 92.5 MCH 29.3 MCHC 31.7 L RDW 14.4 Plt Count 178 MPV 9.6 Neutrophils % 69.8 Lymphocytes % 13.9 D Monocytes % 14.8 H Eosinophils % 1.0 D Basophils % 0.5 Sodium 138 Potassium 4.9 Chloride 101 Carbon Dioxide 30 Anion Gap 7 L BUN 36 H Creatinine 1.2 Creat Clearance w eGFR > 60 POC Glucometer 111 Random Glucose 98 Calcium 8.5 Magnesium 2.3 Total Bilirubin 0.6 AST 15 ALT 25 Alkaline Phosphatase 113 Total Protein 6.6 Albumin 3.1 L 09/27/17 10:47 WBC RBC Hgb Hct MCV MCH MCHC RDW Plt Count MPV Neutrophils % Lymphocytes % Monocytes % Eosinophils % Basophils % Sodium Potassium Chloride Carbon Dioxide Anion Gap BUN Creatinine Creat Clearance w eGFR POC Glucometer 220 Random Glucose Calcium Magnesium Total Bilirubin AST ALT Alkaline Phosphatase Total Protein Albumin Problem List - Problems (1) PNA (pneumonia) Code(s): J18.9 - PNEUMONIA, UNSPECIFIED ORGANISM Qualifiers: Pneumonia type: due to unspecified organism Laterality: unspecified laterality Lung location: unspecified part of lung Qualified Code(s): J18.9 - Pneumonia, unspecified organism (2) Atrial fibrillation with rapid ventricular response Code(s): I48.91 - UNSPECIFIED ATRIAL FIBRILLATION (3) CHF (congestive heart failure) Code(s): I50.9 - HEART FAILURE, UNSPECIFIED Qualifiers: Congestive heart failure type: diastolic Congestive heart failure chronicity: acute on chronic Qualified Code(s): I50.33 - Acute on chronic diastolic (congestive) heart failure (4) COPD (chronic obstructive pulmonary disease) Code(s): J44.9 - CHRONIC OBSTRUCTIVE PULMONARY DISEASE, UNSPECIFIED (5) Diastolic dysfunction Code(s): I51.9 - HEART DISEASE, UNSPECIFIED (6) Leukocytosis Code(s): D72.829 - ELEVATED WHITE BLOOD CELL COUNT, UNSPECIFIED Qualifiers: Leukocytosis type: unspecified Qualified Code(s): D72.829 - Elevated white blood cell count, unspecified PLAN: Consider change to PO ABX therapy BD TX No smoking BD TX Patient has home O2 Will need outpatient follow up of [address] Smith
--- NOTE | 2017-09-27 11:27 | PN ---
Progress Note, Physician History of Present Illness: patient feeling much better wbc improving - Current Medication List Current Medications: Active Medications Albuterol/Ipratropium (Duoneb -) 1 amp NEB Q6H PRN PRN Reason: SHORTNESS OF BREATH Clindamycin HCl (Cleocin -) 300 mg PO Q6HPO [facility] Last Admin: 09/27/17 06:02 Dose: 300 mg Furosemide (Lasix -) 20 mg PO DAILY [facility] Last Admin: 09/27/17 09:45 Dose: 20 mg Aztreonam (Azactam (Restricted To Id) -) 1 gm in 10 mls @ 120 mls/hr IVPUSH Q8H -IV [facility] Last Admin: 09/27/17 09:45 Dose: 120 mls/hr Insulin Aspart (Novolog Vial Sliding Scale -) 1 vial SQ ACHS [facility] PRN Reason: Protocol Last Admin: 09/27/17 10:48 Dose: 4 units Methadone HCl 40 mg/ Methadone (HCl 30 mg) 70 mg PO DAILY@0600 [facility] Last Admin: 09/27/17 06:02 Dose: 70 mg Metoprolol Tartrate (Lopressor -) 50 mg PO BID [facility] Last Admin: 09/27/17 09:45 Dose: 50 mg Rivaroxaban (Xarelto -) 20 mg PO DAILY [facility] Last Admin: 09/27/17 09:45 Dose: 20 mg Valsartan (Diovan -) 320 mg PO HS [facility] Last Admin: 09/26/17 22:02 Dose: Not Given - Objective Vital Signs: Vital Signs Temperature 98.1 F 09/27/17 06:00 Pulse Rate 93 H 09/27/17 06:00 Respiratory Rate 20 09/27/17 06:00 Blood Pressure 118/63 09/27/17 06:00 O2 Sat by Pulse Oximetry (%) 97 09/27/17 06:00 Constitutional: Yes: No Distress, Calm Cardiovascular: Yes: Regular Rate and Rhythm Respiratory: Yes: Regular, On Nasal O2, Rhonchi Gastrointestinal: Yes: Normal Bowel Sounds, Soft Musculoskeletal: Yes: WNL Extremities: Yes: WNL Neurological: Yes: Alert, Oriented Psychiatric: Yes: Alert, Oriented Labs: CBC, BMP 09/27/17 07:33 09/27/17 07:33 Assessment/Plan Problem List - Problems (1) PNA (pneumonia) Code(s): J18.9 - PNEUMONIA, UNSPECIFIED ORGANISM Qualifiers: Pneumonia type: due to unspecified organism Laterality: unspecified laterality Lung location: unspecified part of lung Qualified Code(s): J18.9 - Pneumonia, unspecified organism (2) Diastolic dysfunction Code(s): I51.9 - HEART DISEASE, UNSPECIFIED (3) Methadone dependence Code(s): F11.20 - OPIOID DEPENDENCE, UNCOMPLICATED (4) PAD (peripheral artery disease) Code(s): I73.9 - PERIPHERAL VASCULAR DISEASE, UNSPECIFIED (5) Paroxysmal atrial fibrillation Code(s): I48.0 - PAROXYSMAL ATRIAL FIBRILLATION (6) S/P aorto-bifemoral bypass surgery Code(s): Z95.828 - PRESENCE OF OTHER VASCULAR IMPLANTS AND GRAFTS plan continue iv abx rest as per primary team incentive allyson patient improving
--- NOTE | 2017-09-27 15:03 | PN ---
Physical Exam: SUBJECTIVE: Patient seen and examined at the bedside, reports feeling better today. OBJECTIVE: BP reported to be low, parameters added on all cardiac medications Vital Signs Period Temp Pulse Resp BP Sys/Chatterjee Pulse Ox Last 24 Hr 98.1 F-98.7 F 59-106 18-22 99-135/47-69 95-97 GENERAL: Awake, alert, and fully oriented, in no acute distress HEAD: Normal with no signs of trauma. EYES: Pupils equal, round and reactive to light, extraocular movements intact, sclera anicteric, conjunctiva clear. No lid lag. EARS, NOSE, THROAT: Ears normal, nares patent, oropharynx clear without exudates. Moist mucous membranes. NECK: Normal range of motion, supple without lymphadenopathy, JVD, or masses. LUNGS: diminished breath sound, home oxygen dependent, no wheezing, no accessory muscle use HEART: irregular, on Xarelto ABDOMEN: Soft, nontender, not distended, normoactive bowel sounds, no guarding, no rebound, no masses. No hepatomegaly or splenomegaly. UPPER EXTREMITIES: 2+ pulses, warm, well-perfused. No cyanosis. No clubbing. No peripheral edema. LOWER EXTREMITIES: +1 pitting edema on bilateral lower ext, no open lesions NEUROLOGICAL: Normal speech PSYCHIATRIC: Cooperative. Good eye contact. Appropriate mood and affect. Laboratory Results - last 24 hr 09/26/17 09/26/17 09/27/17 17:10 21:52 06:00 WBC RBC Hgb Hct MCV MCH MCHC RDW Plt Count MPV Neutrophils % Lymphocytes % Monocytes % Eosinophils % Basophils % Sodium Potassium Chloride Carbon Dioxide Anion Gap BUN Creatinine Creat Clearance w eGFR POC Glucometer 129 150 111 Random Glucose Calcium Magnesium Total Bilirubin AST ALT Alkaline Phosphatase Total Protein Albumin 09/27/17 09/27/17 09/27/17 07:33 07:33 10:47 WBC 10.1 H RBC 3.79 L Hgb 11.1 L Hct 35.0 L MCV 92.5 MCH 29.3 MCHC 31.7 L RDW 14.4 Plt Count 178 MPV 9.6 Neutrophils % 69.8 Lymphocytes % 13.9 D Monocytes % 14.8 H Eosinophils % 1.0 D Basophils % 0.5 Sodium 138 Potassium 4.9 Chloride 101 Carbon Dioxide 30 Anion Gap 7 L BUN 36 H Creatinine 1.2 Creat Clearance w eGFR > 60 POC Glucometer 220 Random Glucose 98 Calcium 8.5 Magnesium 2.3 Total Bilirubin 0.6 AST 15 ALT 25 Alkaline Phosphatase 113 Total Protein 6.6 Albumin 3.1 L Active Medications Generic Name Dose Route Start Last Admin Trade Name Janie PRN Reason Stop Dose Admin Albuterol/Ipratropium 1 amp 09/26/17 14:43 Duoneb - NEB Q6H PRN SHORTNESS OF BREATH Clindamycin HCl 300 mg 09/26/17 18:00 09/27/17 11:57 Cleocin - PO 300 mg Q6HPO DOMINIC Administration Furosemide 20 mg 09/26/17 10:00 09/27/17 09:45 Lasix - PO 20 mg DAILY DOMINIC Administration Aztreonam 1 gm in 10 mls @ 120 mls/hr 09/26/17 15:00 09/27/17 09:45 Azactam (Restricted To Id) - IVPUSH 120 mls/hr Q8H-IV [facility]INIC Administration Insulin Aspart 1 vial 09/25/17 16:30 09/27/17 10:48 Novolog Vial Sliding Scale - SQ 4 units ACHS DOMINIC Administration Protocol Methadone HCl 40 mg/ Methadone 70 mg 09/26/17 08:45 09/27/17 06:02 HCl 30 mg PO 70 mg DAILY@0600 [facility]IC Administration Metoprolol Tartrate 50 mg 09/27/17 15:02 Lopressor - PO BID DOMINIC Rivaroxaban 20 mg 09/26/17 10:00 09/27/17 09:45 Xarelto - PO 20 mg DAILY DOMINIC Administration Valsartan 320 mg 09/27/17 15:03 Diovan - PO HS [facility] ASSESSMENT/PLAN: Patient is a 61 year old male with significant past medical history of of newly diagnosed atrial fibrillation (on Xarelto), CHF, HTN, PAD, venous ulcerations on bilateral lower extremities and opioid dependence (on methadone). On 2016 he underwent a aorto-bifemoral bypass and was an ICU admission in December 2016. He was admitted today with worsening cough and shortness of breath with exertion. He states that he is home oxygen dependent on 2 liters of nasal cannula which he states he is compliant with. However, he is normally able to get up and ambulate his 22 steps at home but now it is getting harder for his to do so. He is requiring more periods of physical inactivity to catch his breath. He states he has been compliant with all his home medications and home oxygen. His aitchbone breaker is Dr. Burns and he was scheduled to see him on Wednesday but decided to come to the ER for relief of dyspnea and cough. Labs show elevated WBC of 18.3, NA 134, BNP 1178. Chest xray shows no acute pathology. Imaging: Chest xray: cxr no acute infiltrate. Negative influenza EKG: SB with sinus arrythmia, non specific t wave abnormality Vascular lower ext negative for DVT CT Chest 09/25/2017: Evaluation of the lung sun demonstrate a mild degree of patchy consolidation within the RLL suspicious for a developing pneumonia. Also atelectatic changes involving the RLL, as well as RML and lingular segment of the upper lobe anteriorly. No pulmonary massess or pleural effusions are identified. There is a 5mm peripheral nodule within the right middle lobe. Short term, three month CT follow up recommended. Questionable developing pneumonia RLL, areas of atelectasis bilaterally. Pulmonary: Shortness of breath/Cough, acute CT chest with questionable developing pneumonia RLL, areas of atelectasis bilaterally. BNP elevated at 1178, but lower than previous admission CT chest with questionable developing pneumonia RLL, areas of atelectasis bilaterally. 5mm peripheral nodule within the right middle lobe which needs to be followed up as an outpatient with a [address] follow up. Started on Azactiam per ID, WBC improving Blood and urine cultures pending Patient NEGATIVE for flu, however as per pulmonary recommendation, will start on Tamiflu for flu like symptoms. ID: Sepsis, rule out Low grade temps, mild tachycardia, hypoxia-02 dependent but not at baseline, leukocytosis improving Azactam as per ID Blood, urine cultures pending ID consulted Cardiology: History of Afib with RVR Continue Xarelto 20mg daily, Lopressor 50mg BID, Diovan 320mg, parameters added On home Lasix 40mg PO daily Outpatient aitchbone breaker is Dr. Burns who patient states he has followed up with, had an appt on 09/28 Chest pain, resolved Troponins negative x 2 Vascular: PAD with distal aorta and external iliac occlusion s/p aorto-bifemoral bypass on 12/30/16 bilateral foot pulses warm to touch, denies pain or discomfort States his toes are chronically numb Bilateral venous stasis wounds - chronic Endocrine: Diabetes mellitus, chronic On Metformin 500mg BID - HOLD Novolog sliding scale now Psyche: Polysubstance abuse Assessment/Plan: Methadone 70mg daily F.E.N. Fluids: none needed Electrolytes: monitor Nutrition: diabetic diet Disposition: Full Code
[2017-09-27] MEDS: VALSARTAN 160 MG TABLET (UD) PO SCH ×2 (16:09→21:16)
[2017-09-27] MEDS ORDERED: PT OWN MED DRAWER 7, Y5N ONE (21:02)
[2017-09-28] MEDS: CLINDAMYCIN HCL 150 MG CAPSULE (FP) PO SCH ×4 (00:01→17:03)
[2017-09-28] MEDS: AZTREONAM 1 GRAM SYRINGE 1 GM/10 ML DISP.SYRIN IVPUSH SCH ×2 (01:56→09:17)
[2017-09-28] MEDS ORDERED: METHADONE HCL 10 MG TABLET ONE (06:17)
[2017-09-28] MEDS ORDERED: METHADONE HCL 40 MG DISPERSABLE TABLET ONE (06:17)
[2017-09-28] MEDS: METHADONE 40 MG, METHADONE 30 MG PO SCH (06:23)
[2017-09-28] MEDS: INSULIN SLIDING SCALE (NOVOLOG) 1 VIAL SQ SCH ×4 (06:30→21:55)
[2017-09-28 08:25] LABS: BASO % 0.7 % (0-2.0); EOS % 1.7 % (0-4.5); HEMATOCRIT 34.8 % (35.4-49); HEMOGLOBIN 11.1 GM/dL (11.7-16.9); LYMPH % 15.7 % (8-40); MCH 29.5 pg (25.7-33.7); MCHC 32.1 g/dl (32.0-35.9); MEAN CELL VOLUME 92.1 fl (80-96); MEAN PLT VOLUME 9.5 fl (7.5-11.1); NEUT % 69.9 % (42.8-82.8); PLATELET COUNT 182 K/MM3 (134-434); RBC 3.78 M/mm3 (4.00-5.60); RDW 14.6 % (11.9-15.9); WHITE BLOOD COUNT 7.9 K/mm3 (4.0-10.0)
[2017-09-28 08:27] LABS: CHLORIDE 100 mmol/L (98-107); POTASSIUM 5.1 mmol/L (3.5-5.1); SODIUM 137 mmol/L (136-145)
[2017-09-28 08:33] LABS: ALBUMIN 3.1 g/dl (3.4-5.0); ALK PHOS 128 U/L (45-117); ANION GAP 6 (8-16); BILIRUBIN,TOTAL 0.3 mg/dL (0.2-1.0); BLOOD UREA NITROGEN 37 mg/dL (7-18); CALCIUM 8.8 mg/dL (8.5-10.1); CO2 31 mmol/L (21-32); CREATININE 1.1 mg/dL (0.7-1.3); GLUCOSE,RANDOM 90 mg/dL (74-106); MAGNESIUM 2.4 mg/dL (1.8-2.4); SGOT/AST 25 U/L (15-37); SGPT/ALT 35 U/L (12-78); TOT PROT 6.4 g/dl (6.4-8.2)
[2017-09-28] MEDS ORDERED: PT OWN MED DRAWER 7, Y5N ONE (09:11)
[2017-09-28] MEDS: FUROSEMIDE 20 MG TABLET (FP) PO SCH (09:17)
[2017-09-28] MEDS: RIVAROXABAN 20 MG TABLET PO SCH (09:17)
[2017-09-28] MEDS: METOPROLOL TARTRATE 50 MG TABLET (FP) PO SCH ×2 (09:17→21:55)
--- NOTE | 2017-09-28 09:56 | PN ---
Physical Exam: SUBJECTIVE: Patient seen and examined. He states he feels better today. Patient asking about possible short term rehab. He is able to ambulate 150 feet with PT, however, he has 22 stairs at home but was unable to climb home stairs secondary to dyspnea. OBJECTIVE: PT notes reviewed, patient does not likely meet criteria for short term rehab, however, SW to inquire in a.m. Patient to do stairs again with PT in a.m. prior to discharge Vital Signs Period Temp Pulse Resp BP Sys/Chatterjee Pulse Ox Last 24 Hr 97.6 F-98 F 58-72 16-19 106-135/47-59 95 GENERAL: Awake, alert, and fully oriented, in no acute distress HEAD: Normal with no signs of trauma. EYES: Pupils equal, round and reactive to light, extraocular movements intact, sclera anicteric, conjunctiva clear. No lid lag. EARS, NOSE, THROAT: Ears normal, nares patent, oropharynx clear without exudates. Moist mucous membranes. NECK: Normal range of motion, supple without lymphadenopathy, JVD, or masses. LUNGS: diminished breath sound, home oxygen dependent, no wheezing, no accessory muscle use HEART: irregular, on Xarelto ABDOMEN: Soft, nontender, not distended, normoactive bowel sounds, no guarding, no rebound, no masses. No hepatomegaly or splenomegaly. UPPER EXTREMITIES: 2+ pulses, warm, well-perfused. No cyanosis. No clubbing. No peripheral edema. LOWER EXTREMITIES: +1 pitting edema on bilateral lower ext, no open lesions NEUROLOGICAL: Normal speech PSYCHIATRIC: Cooperative. Good eye contact. Appropriate mood and affect Laboratory Results - last 24 hr 09/27/17 09/27/17 09/27/17 10:47 16:46 21:13 WBC RBC Hgb Hct MCV MCH MCHC RDW Plt Count MPV Neutrophils % Lymphocytes % Monocytes % Eosinophils % Basophils % Sodium Potassium Chloride Carbon Dioxide Anion Gap BUN Creatinine Creat Clearance w eGFR POC Glucometer 220 128 161 Random Glucose Calcium Magnesium Total Bilirubin AST ALT Alkaline Phosphatase Total Protein Albumin 09/28/17 09/28/17 09/28/17 06:00 06:00 06:29 WBC 7.9 RBC 3.78 L Hgb 11.1 L Hct 34.8 L MCV 92.1 MCH 29.5 MCHC 32.1 RDW 14.6 Plt Count 182 MPV 9.5 Neutrophils % 69.9 Lymphocytes % 15.7 Monocytes % 12.0 H Eosinophils % 1.7 Basophils % 0.7 Sodium 137 Potassium 5.1 Chloride 100 Carbon Dioxide 31 Anion Gap 6 L BUN 37 H Creatinine 1.1 Creat Clearance w eGFR > 60 POC Glucometer 96 Random Glucose 90 Calcium 8.8 Magnesium 2.4 Total Bilirubin 0.3 D AST 25 D ALT 35 D Alkaline Phosphatase 128 H Total Protein 6.4 Albumin 3.1 L Active Medications Generic Name Dose Route Start Last Admin Trade Name Freq PRN Reason Stop Dose Admin Albuterol/Ipratropium 1 amp 09/26/17 14:43 Duoneb - NEB Q6H PRN SHORTNESS OF BREATH Clindamycin HCl 300 mg 09/26/17 18:00 09/28/17 06:23 Cleocin - PO 300 mg Q6HPO DOMINIC Administration Furosemide 20 mg 09/26/17 10:00 09/28/17 09:17 Lasix - PO 20 mg DAILY DOMINIC Administration Aztreonam 1 gm in 10 mls @ 120 mls/hr 09/26/17 15:00 09/28/17 09:17 Azactam (Restricted To Id) - IVPUSH 120 mls/hr Q8H-IV DOMINIC Administration Insulin Aspart 1 vial 09/25/17 16:30 09/28/17 06:30 Novolog Vial Sliding Scale - SQ Not Given ACHS [facility] Protocol Methadone HCl 40 mg/ Methadone 70 mg 09/26/17 08:45 09/28/17 06:23 HCl 30 mg PO 70 mg DAILY@0600 DOMINIC Administration Metoprolol Tartrate 50 mg 09/27/17 15:15 09/28/17 09:17 Lopressor - PO 50 mg BID DOMINIC Administration Rivaroxaban 20 mg 09/26/17 10:00 09/28/17 09:17 Xarelto - PO 20 mg DAILY DOMINIC Administration Valsartan 320 mg 09/27/17 15:15 09/27/17 21:16 Diovan - PO 320 mg HS DOMINIC Administration ASSESSMENT/PLAN: Patient is a 61 year old male with significant past medical history of of newly diagnosed atrial fibrillation (on Xarelto), CHF, HTN, PAD, venous ulcerations on bilateral lower extremities and opioid dependence (on methadone). On 2016 he underwent a aorto-bifemoral bypass and was an ICU admission in December 2016. He was admitted today with worsening cough and shortness of breath with exertion. He states that he is home oxygen dependent on 2 liters of nasal cannula which he states he is compliant with. However, he is normally able to get up and ambulate his 22 steps at home but now it is getting harder for his to do so. He is requiring more periods of physical inactivity to catch his breath. He states he has been compliant with all his home medications and home oxygen. His sprinkler tender is Dr. Burns and he was scheduled to see him on Wednesday but decided to come to the ER for relief of dyspnea and cough. Labs show elevated WBC of 18.3, NA 134, BNP 1178. Chest xray shows no acute pathology. Imaging: Chest xray: cxr no acute infiltrate. Negative influenza EKG: SB with sinus arrythmia, non specific t wave abnormality Vascular lower ext negative for DVT CT Chest 09/25/2017: Evaluation of the lung sun demonstrate a mild degree of patchy consolidation within the RLL suspicious for a developing pneumonia. Also atelectatic changes involving the RLL, as well as RML and lingular segment of the upper lobe anteriorly. No pulmonary massess or pleural effusions are identified. There is a 5mm peripheral nodule within the right middle lobe. Short term, three month CT follow up recommended. Questionable developing pneumonia RLL, areas of atelectasis bilaterally. Pulmonary: Shortness of breath/Cough, improving CT chest with questionable developing pneumonia RLL, areas of atelectasis bilaterally. BNP elevated at 1178, but lower than previous admission CT chest with questionable developing pneumonia RLL, areas of atelectasis bilaterally. 5mm peripheral nodule within the right middle lobe which needs to be followed up as an outpatient with a [address] follow up. WBC improved, Azactam stopped, now on PO Antibiotics to continue x 7 more days Blood and urine cultures negative Patient NEGATIVE for flu, however as per pulmonary recommendation, will start on Tamiflu for flu like symptoms. ID: Sepsis, resolved Afebrile, vitals, labs, leukocytosis all within normal limits, no signs of sepsis Blood and urine cultures negative ID following Cardiology: History of Afib with RVR Continue Xarelto 20mg daily, Lopressor 50mg BID, Diovan 320mg, parameters added On home Lasix 40mg PO daily Outpatient sprinkler tender is Dr. Burns who patient states he has followed up with Chest pain, resolved Troponins negative x 2 Vascular: PAD with distal aorta and external iliac occlusion s/p aorto-bifemoral bypass on 12/30/16 bilateral foot pulses warm to touch, denies pain or discomfort States his toes are chronically numb Bilateral venous stasis wounds - chronic Endocrine: Diabetes mellitus, chronic On Metformin 500mg BID - HOLD while inpatient Novolog sliding scale now Psyche: Polysubstance abuse, chronic Assessment/Plan: Methadone 70mg daily Stable F.E.N. Fluids: none needed Electrolytes: monitor Nutrition: diabetic diet Disposition: Full Code. Discharge home likely. Sw to address patient's request for STR. Visit type - Emergency Visit Emergency Visit: Yes ED Registration Date: 09/27/17 Care time: The patient presented to the Emergency Department on the above date and was hospitalized for further evaluation of their emergent condition. - New Patient This patient is new to me today: No - Critical Care Critical Care patient: No - Discharge Referral Referred to [facility] No
[2017-09-28] MEDS ORDERED: INSULIN (NOVOLOG) ASPART 100 UNITS/ML 10ML VIAL ONE ×3 (10:46→21:51)
--- NOTE | 2017-09-28 12:41 | PN ---
Progress Note, Physician History of Present Illness: patient stable doing well no complaints says he is doing much better - Current Medication List Current Medications: Active Medications Albuterol/Ipratropium (Duoneb -) 1 amp NEB Q6H PRN PRN Reason: SHORTNESS OF BREATH Clindamycin HCl (Cleocin -) 300 mg PO Q6HPO [facility] Last Admin: 09/28/17 12:23 Dose: 300 mg Furosemide (Lasix -) 20 mg PO DAILY [facility] Last Admin: 09/28/17 09:17 Dose: 20 mg Aztreonam (Azactam (Restricted To Id) -) 1 gm in 10 mls @ 120 mls/hr IVPUSH Q8H -IV [facility] Last Admin: 09/28/17 09:17 Dose: 120 mls/hr Insulin Aspart (Novolog Vial Sliding Scale -) 1 vial SQ ACHS [facility] PRN Reason: Protocol Last Admin: 09/28/17 10:52 Dose: Not Given Methadone HCl 40 mg/ Methadone (HCl 30 mg) 70 mg PO DAILY@0600 [facility] Last Admin: 09/28/17 06:23 Dose: 70 mg Metoprolol Tartrate (Lopressor -) 50 mg PO BID [facility] Last Admin: 09/28/17 09:17 Dose: 50 mg Rivaroxaban (Xarelto -) 20 mg PO DAILY [facility] Last Admin: 09/28/17 09:17 Dose: 20 mg Valsartan (Diovan -) 320 mg PO HS [facility] Last Admin: 09/27/17 21:16 Dose: 320 mg - Objective Vital Signs: Vital Signs Temperature 97.7 F 09/28/17 08:00 Pulse Rate 66 09/28/17 08:00 Respiratory Rate 20 09/28/17 08:00 Blood Pressure 112/61 09/28/17 08:00 O2 Sat by Pulse Oximetry (%) 95 09/28/17 08:00 Constitutional: Yes: No Distress, Calm Cardiovascular: Yes: Regular Rate and Rhythm Respiratory: Yes: Regular, CTA Bilaterally, On Nasal O2 Gastrointestinal: Yes: Normal Bowel Sounds, Soft Musculoskeletal: Yes: WNL Extremities: Yes: WNL Neurological: Yes: Alert, Oriented Psychiatric: Yes: Alert, Oriented Labs: CBC, BMP 09/28/17 06:00 09/28/17 06:00 Assessment/Plan Problem List - Problems (1) PNA (pneumonia) Code(s): J18.9 - PNEUMONIA, UNSPECIFIED ORGANISM Qualifiers: Pneumonia type: due to unspecified organism Laterality: unspecified laterality Lung location: unspecified part of lung Qualified Code(s): J18.9 - Pneumonia, unspecified organism (2) Diastolic dysfunction Code(s): I51.9 - HEART DISEASE, UNSPECIFIED (3) Methadone dependence Code(s): F11.20 - OPIOID DEPENDENCE, UNCOMPLICATED (4) PAD (peripheral artery disease) Code(s): I73.9 - PERIPHERAL VASCULAR DISEASE, UNSPECIFIED (5) Paroxysmal atrial fibrillation Code(s): I48.0 - PAROXYSMAL ATRIAL FIBRILLATION (6) S/P aorto-bifemoral bypass surgery Code(s): Z95.828 - PRESENCE OF OTHER VASCULAR IMPLANTS AND GRAFTS plan will switch to oral abx will switch to oral
--- NOTE | 2017-09-28 12:44 | PN ---
Progress Note (short form) - Note Progress Note: Reports feeling overall better today. Cough and SOB is improving. No hemoptysis. Intake & Output 09/25/17 09/26/17 09/27/17 09/28/17 23:59 23:59 23:59 23:59 Intake Total 760 960 10 Balance 760 960 10 Weight 181 lb 9 oz Last Vital Signs Temp Pulse Resp BP Pulse Ox 97.7 F 66 20 112/61 95 09/28/17 08:00 09/28/17 08:00 09/28/17 08:00 09/28/17 08:00 09/28/17 08:00 Active Medications Albuterol/Ipratropium (Duoneb -) 1 amp NEB Q6H PRN PRN Reason: SHORTNESS OF BREATH Clindamycin HCl (Cleocin -) 300 mg PO Q6HPO [facility] Last Admin: 09/28/17 12:23 Dose: 300 mg Furosemide (Lasix -) 20 mg PO DAILY [facility] Last Admin: 09/28/17 09:17 Dose: 20 mg Insulin Aspart (Novolog Vial Sliding Scale -) 1 vial SQ ACHS [facility] PRN Reason: Protocol Last Admin: 09/28/17 10:52 Dose: Not Given Methadone HCl 40 mg/ Methadone (HCl 30 mg) 70 mg PO DAILY@0600 [facility] Last Admin: 09/28/17 06:23 Dose: 70 mg Metoprolol Tartrate (Lopressor -) 50 mg PO BID [facility] Last Admin: 09/28/17 09:17 Dose: 50 mg Rivaroxaban (Xarelto -) 20 mg PO DAILY [facility] Last Admin: 09/28/17 09:17 Dose: 20 mg Valsartan (Diovan -) 320 mg PO HS [facility] Last Admin: 09/27/17 21:16 Dose: 320 mg Constitutional: Yes: Awake and alert, NAD Eyes: Yes: EOM Intact HENT: Yes: Normocephalic Neck: Yes: Trachea Midline Cardiovascular: Yes: S1. No: Regular Rate and Rhythm, S2 Respiratory: Yes: Minimal scattered rhonchi, no Wheezes Gastrointestinal: Yes: Soft Renal/: Yes: WNL Edema: No Neurological: Yes: Alert Labs: Laboratory Results - last 24 hr 09/27/17 09/27/17 09/28/17 16:46 21:13 06:00 WBC 7.9 RBC 3.78 L Hgb 11.1 L Hct 34.8 L MCV 92.1 MCH 29.5 MCHC 32.1 RDW 14.6 Plt Count 182 MPV 9.5 Neutrophils % 69.9 Lymphocytes % 15.7 Monocytes % 12.0 H Eosinophils % 1.7 Basophils % 0.7 Sodium Potassium Chloride Carbon Dioxide Anion Gap BUN Creatinine Creat Clearance w eGFR POC Glucometer 128 161 Random Glucose Calcium Magnesium Total Bilirubin AST ALT Alkaline Phosphatase Total Protein Albumin 09/28/17 09/28/17 09/28/17 06:00 06:29 10:51 WBC RBC Hgb Hct MCV MCH MCHC RDW Plt Count MPV Neutrophils % Lymphocytes % Monocytes % Eosinophils % Basophils % Sodium 137 Potassium 5.1 Chloride 100 Carbon Dioxide 31 Anion Gap 6 L BUN 37 H Creatinine 1.1 Creat Clearance w eGFR > 60 POC Glucometer 96 136 Random Glucose 90 Calcium 8.8 Magnesium 2.4 Total Bilirubin 0.3 D AST 25 D ALT 35 D Alkaline Phosphatase 128 H Total Protein 6.4 Albumin 3.1 L Problem List - Problems (1) PNA (pneumonia) Code(s): J18.9 - PNEUMONIA, UNSPECIFIED ORGANISM Qualifiers: Pneumonia type: due to unspecified organism Laterality: unspecified laterality Lung location: unspecified part of lung Qualified Code(s): J18.9 - Pneumonia, unspecified organism (2) Atrial fibrillation with rapid ventricular response Code(s): I48.91 - UNSPECIFIED ATRIAL FIBRILLATION (3) CHF (congestive heart failure) Code(s): I50.9 - HEART FAILURE, UNSPECIFIED Qualifiers: Congestive heart failure type: diastolic Congestive heart failure chronicity: acute on chronic Qualified Code(s): I50.33 - Acute on chronic diastolic (congestive) heart failure (4) COPD (chronic obstructive pulmonary disease) Code(s): J44.9 - CHRONIC OBSTRUCTIVE PULMONARY DISEASE, UNSPECIFIED (5) Diastolic dysfunction Code(s): I51.9 - HEART DISEASE, UNSPECIFIED (6) Leukocytosis Code(s): D72.829 - ELEVATED WHITE BLOOD CELL COUNT, UNSPECIFIED Qualifiers: Leukocytosis type: unspecified Qualified Code(s): D72.829 - Elevated white blood cell count, unspecified PLAN: Consider change to PO ABX therapy BD TX No smoking BD TX Patient has home O2 Will need outpatient follow up of [address] Smith
--- NOTE | 2017-09-28 14:35 | PN ---
Progress Note, Physician Chief Complaint: Events noted. Feels better Less SOB and productive cough History of Present Illness: Patient was seen and examined. Awake and alert. Chart was reviewed. Denies chest pain, SOB or palpitations - Current Medication List Current Medications: Active Medications Albuterol/Ipratropium (Duoneb -) 1 amp NEB Q6H PRN PRN Reason: SHORTNESS OF BREATH Clindamycin HCl (Cleocin -) 300 mg PO Q6HPO [facility] Last Admin: 09/28/17 12:23 Dose: 300 mg Furosemide (Lasix -) 20 mg PO DAILY [facility] Last Admin: 09/28/17 09:17 Dose: 20 mg Insulin Aspart (Novolog Vial Sliding Scale -) 1 vial SQ ACHS [facility] PRN Reason: Protocol Last Admin: 09/28/17 10:52 Dose: Not Given Methadone HCl 40 mg/ Methadone (HCl 30 mg) 70 mg PO DAILY@0600 [facility] Last Admin: 09/28/17 06:23 Dose: 70 mg Metoprolol Tartrate (Lopressor -) 50 mg PO BID [facility] Last Admin: 09/28/17 09:17 Dose: 50 mg Rivaroxaban (Xarelto -) 20 mg PO DAILY [facility] Last Admin: 09/28/17 09:17 Dose: 20 mg Valsartan (Diovan -) 320 mg PO HS [facility] Last Admin: 09/27/17 21:16 Dose: 320 mg - Objective Vital Signs: Vital Signs Temperature 97.7 F 09/28/17 08:00 Pulse Rate 66 09/28/17 08:00 Respiratory Rate 20 09/28/17 08:00 Blood Pressure 112/61 09/28/17 08:00 O2 Sat by Pulse Oximetry (%) 95 09/28/17 08:00 Neck: Yes: Supple Cardiovascular: Yes: Regular Rate and Rhythm, S1, S2 Respiratory: Yes: Diminished Gastrointestinal: Yes: Normal Bowel Sounds, Soft. No: Tenderness Edema: No Additional Findings/Remarks: - Review of Systems Constitutional: denies: Chills, Fever Eyes: reports: No Symptoms HENT: reports: No Symptoms Cardiovascular: reports: Shortness of Breath. denies: Chest Pain, Palpitations Respiratory: reports: Cough. denies: Hemoptysis, Orthopnea, PND, SOB, SOB on Exertion, Wheezing Gastrointestinal: denies: Abdominal Pain, Constipation, Diarrhea, Melena, Nausea , Rectal Bleeding, Vomiting Genitourinary: denies: Dysuria, Frequency Neurological: denies: Dizziness, Headache, Seizure, Syncope Labs: CBC, BMP 09/28/17 06:00 09/28/17 06:00 Problem List - Problems (1) PNA (pneumonia) Code(s): J18.9 - PNEUMONIA, UNSPECIFIED ORGANISM Qualifiers: Pneumonia type: due to unspecified organism Laterality: unspecified laterality Lung location: unspecified part of lung Qualified Code(s): J18.9 - Pneumonia, unspecified organism (2) CHF (congestive heart failure) Code(s): I50.9 - HEART FAILURE, UNSPECIFIED Qualifiers: Congestive heart failure type: diastolic Congestive heart failure chronicity: acute on chronic Qualified Code(s): I50.33 - Acute on chronic diastolic (congestive) heart failure (3) COPD (chronic obstructive pulmonary disease) Code(s): J44.9 - CHRONIC OBSTRUCTIVE PULMONARY DISEASE, UNSPECIFIED Qualifiers: COPD type: unspecified COPD Qualified Code(s): J44.9 - Chronic obstructive pulmonary disease, unspecified (4) Diastolic dysfunction Code(s): I51.9 - HEART DISEASE, UNSPECIFIED (5) Methadone dependence Code(s): F11.20 - OPIOID DEPENDENCE, UNCOMPLICATED (6) PAD (peripheral artery disease) Code(s): I73.9 - PERIPHERAL VASCULAR DISEASE, UNSPECIFIED (7) Paroxysmal atrial fibrillation Code(s): I48.0 - PAROXYSMAL ATRIAL FIBRILLATION (8) S/P aorto-bifemoral bypass surgery Code(s): Z95.828 - PRESENCE OF OTHER VASCULAR IMPLANTS AND GRAFTS Assessment/Plan 1. Clinical presentation suggests pneumonia 2. Diastolic dysfunction 3. Paroxysmal atrial fibrillation on NOAC 4, PAD s/p aorto-bifem bypass 5. History of Opioid dependence currently on Methadone treatment 6. History of non-compliance PLAN: 1. Antibiotic coverage 2. Continue Metoprolol and Valsartan as tolerated 3. Continue Xarelto 4. Diuretics. Monitor renal function and electrolytes Continue present therapy Dorian Figueroa MD
[2017-09-28] MEDS: VALSARTAN 160 MG TABLET (UD) PO SCH (21:55)
[2017-09-29] MEDS: CLINDAMYCIN HCL 150 MG CAPSULE (FP) PO SCH ×3 (00:05→11:47)
[2017-09-29] MEDS ORDERED: METHADONE HCL 10 MG TABLET ONE (05:57)
[2017-09-29] MEDS ORDERED: METHADONE HCL 40 MG DISPERSABLE TABLET ONE (05:57)
[2017-09-29] MEDS: METHADONE 40 MG, METHADONE 30 MG PO SCH (06:02)
[2017-09-29] MEDS: INSULIN SLIDING SCALE (NOVOLOG) 1 VIAL SQ SCH ×2 (06:02→11:46)
[2017-09-29 07:55] LABS: BASO % 0.6 % (0-2.0); EOS % 2.1 % (0-4.5); HEMATOCRIT 35.1 % (35.4-49); HEMOGLOBIN 11.3 GM/dL (11.7-16.9); LYMPH % 15.8 % (8-40); MCH 29.7 pg (25.7-33.7); MCHC 32.2 g/dl (32.0-35.9); MEAN PLT VOLUME 9.2 fl (7.5-11.1); MONO % 11.8 % (3.8-10.2); NEUT % 69.7 % (42.8-82.8); PLATELET COUNT 190 K/MM3 (134-434); RBC 3.81 M/mm3 (4.00-5.60); RDW 14.1 % (11.9-15.9); WHITE BLOOD COUNT 10.1 K/mm3 (4.0-10.0)
[2017-09-29 08:59] VITALS: BP 98/40; PULSE 50; TEMP 98.7
[2017-09-29] MEDS: FUROSEMIDE 20 MG TABLET (FP) PO SCH (09:36)
[2017-09-29 09:37] LABS: CHLORIDE 98 mmol/L (98-107); POTASSIUM 5.4 mmol/L (3.5-5.1); SODIUM 137 mmol/L (136-145)
[2017-09-29] MEDS: METOPROLOL TARTRATE 50 MG TABLET (FP) PO SCH (09:37)
[2017-09-29] MEDS: RIVAROXABAN 20 MG TABLET PO SCH (09:37)
[2017-09-29 10:22] LABS: ALBUMIN 3.2 g/dl (3.4-5.0); ALK PHOS 128 U/L (45-117); ANION GAP 8 (8-16); BILIRUBIN,TOTAL 0.3 mg/dL (0.2-1.0); BLOOD UREA NITROGEN 31 mg/dL (7-18); CO2 31 mmol/L (21-32); CREATININE 1.1 mg/dL (0.7-1.3); GLUCOSE,RANDOM 83 mg/dL (74-106); MAGNESIUM 2.4 mg/dL (1.8-2.4); SGOT/AST 23 U/L (15-37); SGPT/ALT 37 U/L (12-78); TOT PROT 6.5 g/dl (6.4-8.2)
--- NOTE | 2017-09-29 13:32 | PN ---
Progress Note, Physician History of Present Illness: Dyspnea on exertion and cough mostly resolved, denies orthopnea. - Current Medication List Current Medications: Active Medications Albuterol/Ipratropium (Duoneb -) 1 amp NEB Q6H PRN PRN Reason: SHORTNESS OF BREATH Clindamycin HCl (Cleocin -) 300 mg PO Q6HPO [facility] Last Admin: 09/29/17 11:47 Dose: 300 mg Furosemide (Lasix -) 20 mg PO DAILY [facility] Last Admin: 09/29/17 09:36 Dose: Not Given Insulin Aspart (Novolog Vial Sliding Scale -) 1 vial SQ ACHS [facility] PRN Reason: Protocol Last Admin: 09/29/17 11:46 Dose: 2 units Methadone HCl 40 mg/ Methadone (HCl 30 mg) 70 mg PO DAILY@0600 [facility] Last Admin: 09/29/17 06:02 Dose: 70 mg Metoprolol Tartrate (Lopressor -) 50 mg PO BID [facility] Last Admin: 09/29/17 09:37 Dose: Not Given Rivaroxaban (Xarelto -) 20 mg PO DAILY [facility] Last Admin: 09/29/17 09:37 Dose: 20 mg Valsartan (Diovan -) 320 mg PO HS [facility] Last Admin: 09/28/17 21:55 Dose: 320 mg - Objective Vital Signs: Vital Signs Temperature 98.7 F 09/29/17 08:59 Pulse Rate 50 L 09/29/17 08:59 Respiratory Rate 20 09/29/17 08:59 Blood Pressure 98/40 09/29/17 08:59 O2 Sat by Pulse Oximetry (%) 96 09/29/17 09:00 Constitutional: Yes: No Distress, Calm, Thin Neck: Yes: Supple Cardiovascular: Yes: Regular Rate and Rhythm Respiratory: Yes: Regular, Diminished, On Nasal O2 Gastrointestinal: Yes: Normal Bowel Sounds, Soft Edema: No Labs: CBC, BMP 09/29/17 06:35 09/29/17 06:35 Problem List - Problems (1) PNA (pneumonia) Code(s): J18.9 - PNEUMONIA, UNSPECIFIED ORGANISM Qualifiers: Pneumonia type: due to unspecified organism Laterality: unspecified laterality Lung location: unspecified part of lung Qualified Code(s): J18.9 - Pneumonia, unspecified organism (2) Diastolic dysfunction Code(s): I51.9 - HEART DISEASE, UNSPECIFIED (3) Methadone dependence Code(s): F11.20 - OPIOID DEPENDENCE, UNCOMPLICATED (4) PAD (peripheral artery disease) Code(s): I73.9 - PERIPHERAL VASCULAR DISEASE, UNSPECIFIED (5) Paroxysmal atrial fibrillation Code(s): I48.0 - PAROXYSMAL ATRIAL FIBRILLATION (6) S/P aorto-bifemoral bypass surgery Code(s): Z95.828 - PRESENCE OF OTHER VASCULAR IMPLANTS AND GRAFTS Assessment/Plan 1. Clinical presentation suggests RLL pneumonia improving 2. Diastolic dysfunction 3. Paroxysmal atrial fibrillation on NOAC 4, PAD s/p aorto-bifem bypass 5. History of Opioid dependence currently on Methadone treatment 6. History of non-compliance PLAN: 1. Complete oral antibiotic course 2. Continue Metoprolol 50 bid and Valsartan 320 qd 3. Continue Xarelto 20 qd 4. Lasix 20 qd with monitor diuretic response, renal function and electrolytes 5. D/c planning with f/u in office [phone]
--- NOTE | 2017-09-29 17:08 | DS ---
Physical Exam: SUBJECTIVE: Patient seen and examined. He feels well, no acute resp distress, eating his lunch OBJECTIVE: Vital Signs Period Temp Pulse Resp BP Sys/Chatterjee Pulse Ox Last 24 Hr 98.0 F-98.7 F 50-60 18-20 98-102/40-60 95-96 PE Neuro: alert, awake, cn 2-12intact HEENT: poor dentition Pulm: diminished, + NC CV: s1 s2 rrr no mrg Abd: s nt nd + bs Ext: Warm. no le edema Skin: L shoulder scratches dried Laboratory Results - last 24 hr 09/28/17 09/29/17 09/29/17 21:54 06:00 06:35 WBC 10.1 H RBC 3.81 L Hgb 11.3 L Hct 35.1 L MCV 92.0 MCH 29.7 MCHC 32.2 RDW 14.1 Plt Count 190 MPV 9.2 Neutrophils % 69.7 Lymphocytes % 15.8 Monocytes % 11.8 H Eosinophils % 2.1 Basophils % 0.6 Sodium Potassium Chloride Carbon Dioxide Anion Gap BUN Creatinine Creat Clearance w eGFR POC Glucometer 134 106 Random Glucose Calcium Magnesium Total Bilirubin AST ALT Alkaline Phosphatase Total Protein Albumin 09/29/17 09/29/17 06:35 11:24 WBC RBC Hgb Hct MCV MCH MCHC RDW Plt Count MPV Neutrophils % Lymphocytes % Monocytes % Eosinophils % Basophils % Sodium 137 Potassium 5.4 H Chloride 98 Carbon Dioxide 31 Anion Gap 8 BUN 31 H Creatinine 1.1 Creat Clearance w eGFR > 60 POC Glucometer 165 Random Glucose 83 Calcium 9.0 Magnesium 2.4 Total Bilirubin 0.3 AST 23 ALT 37 Alkaline Phosphatase 128 H Total Protein 6.5 Albumin 3.2 L HOSPITAL COURSE: Date of Admission:09/27/17 Date of Discharge: 09/29/17 Minutes to complete discharge: 37 Discharge Summary Reason For Visit: PNEUMONIA Hospital Course: Initial Hospital Course: Briefly, this 62 year old male with underlying history of atrial fibrillation on NOAC (Xarelto), congestive heart failure, hypertension, PAD with history of venous ulceration, opioid dependence (on Methadone for previous Heroine use). Patient had aorto-bifemoral bypass in December of last year. He was admitted to ED with worsening shortness of breath on exertion and productive cough. He is O2 dependent. Subsequent Hospital Course/Progress Note/DC Summary: a: 62 year old male with significant past medical history of of newly diagnosed atrial fibrillation (on Xarelto), CHF, HTN, PAD, venous ulcerations on bilateral lower extremities and opioid dependence (on methadone) admitted with worsening cough and shortness of breath with exertion. 1. sepsis d/t RLL pneumonia - s/p aztreonam IV - home with clindamycin 300 q6 x6 days - CT chest shows 5mm peripheral nodule within the right middle lobe. 3 month followup with pulm, pt aware - Home with home o2 2. Diastolic dysfunction - Metoprolol 50 bid - Valsartan 320 qday - Lasix 20 qday 3. Paroxysmal atrial fibrillation - Continue Xarelto 20 daily 4. PAD s/p aorto-bifem bypass 12/2016 - Quiescent 5. History of Opioid dependence - on Methadone treatment 6. DM II - Resume home metformin Dispo: - Home with above meds, cardiology, pulm, pcp followup - Pt aware and agrees to above plan Condition: Stable - Instructions Diet, Activity, Other Instructions: Please return to the ED for any new, persistent, or worsening symptoms. Follow up with your PCP in 1 week Follow up with Pulmonary (referral enclosed) for a repeat CT chest to evaluate a nodule found in your right lung. Resume home medication as directed on home discharge list Take antibiotics as directed and until completed for next 2 days Referrals: Hany Coleman MD [Staff Physician] - (Follow up in 1-2 week and then in 3 month for repea cat scan of chest ) Lei Burns MD [Staff Physician] - 2 Weeks Deedee Perdomo MD [Primary Care Provider] - 1 Week Disposition: VNS/HOME HEALTH CARE - Home Medications Comprehensive Discharge Medication List: Ambulatory Orders Furosemide [Lasix] 20 mg PO DAILY 09/25/17 Metformin HCl [Glucophage -] 500 mg PO BID 09/25/17 Methadone [Dolophine -] 70 mg PO DAILY 09/25/17 Metoprolol Tartrate [Lopressor -] 50 mg PO BID 09/25/17 Rivaroxaban [Xarelto -] 20 mg PO DAILY 09/25/17 Valsartan 320 mg PO HS 09/25/17 Clindamycin [Cleocin -] 300 mg PO Q6HPO #8 capsule 09/29/17 This patient is new to me today: Yes Date on this admission: 09/29/17 Emergency Visit: Yes ED Registration Date: 09/27/17 Care time: The patient presented to the Emergency Department on the above date and was hospitalized for further evaluation of their emergent condition. Critical Care patient: No - Discharge Referral Referred to [facility] Med [facility].: No
== END 2017-09-29 14:38 | disposition home health service (06) | DRG 720 ==
LOC: JER 08:10 → JERBED 12:07 → J6S 22:55 → OBSVTOIN 09-27 15:45
PROVIDERS: ADMIT Internal Medicine; ATTEND Nurse Practitioner Acute Care
DX: A41.9 Sepsis, unspecified organism (principal); N17.9 Acute kidney failure, unspecified; J18.9 Pneumonia, unspecified organism; I11.0 Hypertensive heart disease with heart failure; I50.32 Chronic diastolic (congestive) heart failure; Z99.81 Dependence on supplemental oxygen; F11.20 Opioid dependence, uncomplicated; J44.1 Chronic obstructive pulmonary disease with (acute) exacerbation; I48.0 Paroxysmal atrial fibrillation; J98.11 Atelectasis; Z79.01 Long term (current) use of anticoagulants; R09.02 Hypoxemia; R07.9 Chest pain, unspecified; Z79.84 Long term (current) use of oral hypoglycemic drugs; Z87.891 Personal history of nicotine dependence; Z95.828 Presence of other vascular implants and grafts; I73.9 Peripheral vascular disease, unspecified; R91.1 Solitary pulmonary nodule
CPT/HCPCS: 36415; 71046-TC; 71250-TC; 80053; 80061; 81003; 81015; 82550; 82962; 83036; 83721; 83735; 83880; 84484; 85025; 85027; 87040; 87086; 87804; 93005; 93010; 93970-TC; 94010; 97116-GP; 97161-GP; 99284-25; G0378

== ENCOUNTER 2018-01-25 18:14 | Emergency (ER) | payer OTHER ==
[2018-01-25 18:47] VITALS: TEMP 99.4; BMI 27.3
[2018-01-25] MEDS ORDERED: ALBUTEROL SO4 0.083% IH SOL 2.5 MG/3 ML VIAL.NEB. NEB ONE ×2 (19:41→20:54)
[2018-01-25] MEDS ORDERED: methylPREDNISolone NA SUCC 125 MG/2 ML VIAL IVPB ONE (19:41)
[2018-01-25] MEDS ORDERED: methylPREDNISolone NA SUCC 125 MG/2 ML VIAL ONE (20:54)
[2018-01-25 21:38] LABS: BASO % 0.4 % (0-2.0); EOS % 0.9 % (0-4.5); HEMATOCRIT 41.3 % (35.4-49); HEMOGLOBIN 13.3 GM/dL (11.7-16.9); MCH 29.8 pg (25.7-33.7); MCHC 32.2 g/dl (32.0-35.9); MEAN CELL VOLUME 92.5 fl (80-96); MEAN PLT VOLUME 11.1 fl (7.5-11.1); MONO % 7.3 % (3.8-10.2); NEUT % 75.4 % (42.8-82.8); PLATELET COUNT 151 K/MM3 (134-434); RBC 4.46 M/mm3 (4.00-5.60); RDW 14.6 % (11.9-15.9); WHITE BLOOD COUNT 9.8 K/mm3 (4.0-10.0)
[2018-01-25 21:48] LABS: INR 1.48 (0.82-1.09); PROTHROMBIN TIME (PATIENT) 16.7 SEC (9.7-13.0)
[2018-01-25 22:00] LABS: ALK PHOS 136 U/L (45-117); ANION GAP 5 (8-16); BILIRUBIN,TOTAL 0.4 mg/dL (0.2-1.0); BLOOD UREA NITROGEN 19 mg/dL (7-18); CALCIUM 8.7 mg/dL (8.5-10.1); CHLORIDE 105 mmol/L (98-107); CO2 29 mmol/L (21-32); CREATININE 1.1 mg/dL (0.7-1.3); GLUCOSE,RANDOM 92 mg/dL (74-106); POTASSIUM 4.7 mmol/L (3.5-5.1); SGOT/AST 14 U/L (15-37); SGPT/ALT 13 U/L (12-78); SODIUM 139 mmol/L (136-145); TOT PROT 7.1 g/dl (6.4-8.2)
--- NOTE | 2018-01-25 22:52 | PDOC ---
History of Present Illness - General History Source: Patient Exam Limitations: No Limitations - History of Present Illness Initial Comments: 01/25/18 22:52 The patient is a 62 year old male with past medical history of hypertension, hyperlipidemia, diabetes, CHF, COPD (on 2L O2 at home), AAA repair, Afib (on Xarelto), PAD, s/p bifemoral bypass who was BIBA for shortness of breath today. He states it is difficult for him to take a deep breath. He reports his SOB is worse with ambulation. He also adds that he was recently taken off of his Lasix. The patient denies any recent fevers, chills, chest pain, cough, nausea, vomiting, diarrhea, or urinary symptoms. Patient Support Associate: Dr. Katy Bobo Hx: Former smoker Allergies: Penicillins <Acacia Fleming - Last Filed: 01/25/18 22:52> <Viktoria Meléndez - Last Filed: 01/26/18 01:34> - General Chief Complaint: Shortness of Breath Stated Complaint: SOB Time Seen by Provider: 01/25/18 18:45 Past History <Acacia Fleming - Last Filed: 01/25/18 22:52> - Past Medical History Cardiac Disorders: Yes (CHF) COPD: Yes HTN: Yes - Suicide/Smoking/Psychosocial Hx Smoking History: Former smoker Have you smoked in the past 12 months: Yes Number of Cigarettes Smoked Daily: 10 If you are a former smoker, when did you quit?: 2016 Information on smoking cessation initiated: No Hx Alcohol Use: No Drug/Substance Use Hx: No Substance Use Type: None <Viktoria Meléndez - Last Filed: 01/26/18 01:34> - Past Medical History Allergies/Adverse Reactions: Allergies Allergy/AdvReac Type Severity Reaction Status Date / Time Penicillins Allergy Verified 01/25/18 18:46 Home Medications: Ambulatory Orders Furosemide [Lasix] 20 mg PO DAILY 09/25/17 Methadone [Dolophine -] 70 mg PO DAILY 09/25/17 Metoprolol Tartrate [Lopressor -] 50 mg PO BID 09/25/17 Rivaroxaban [Xarelto -] 20 mg PO DAILY 09/25/17 Valsartan 320 mg PO HS 09/25/17 metFORMIN HCL [Glucophage -] 500 mg PO BID 09/25/17 Clindamycin [Cleocin -] 300 mg PO Q6HPO #8 capsule 09/29/17 Review of Systems - Review of Systems Able to Perform ROS?: Yes Comments:: 01/25/18 22:52 CONSTITUTIONAL: Absent: fever, chills, diaphoresis, generalized weakness, malaise, loss of appetite HEENT: Absent: rhinorrhea, nasal congestion, throat pain, throat swelling, difficulty swallowing, mouth swelling, ear pain, eye pain, visual Changes CARDIOVASCULAR: Absent: chest pain, syncope, palpitations, irregular heart rate, lightheadedness , peripheral edema RESPIRATORY: (+) shortness of breath Absent: cough, wheezing, stridor, hemoptysis GASTROINTESTINAL: Absent: abdominal pain, abdominal distension, nausea, vomiting, diarrhea, constipation, melena, hematochezia GENITOURINARY: Absent: dysuria, frequency, urgency, hesitancy, hematuria, flank pain, genital pain MUSCULOSKELETAL: Absent: myalgia, arthralgia, joint swelling SKIN: Absent: rash, itching, pallor HEMATOLOGIC/IMMUNOLOGIC: Absent: easy bleeding, easy bruising, lymphadenopathy, frequent infections ENDOCRINE: Absent: unexplained weight gain, unexplained weight loss, heat intolerance, cold intolerance NEUROLOGIC: Absent: headache, focal weakness or paresthesias, dizziness, unsteady gait, seizure, mental status changes, bladder or bowel incontinence PSYCHIATRIC: Absent: anxiety, depression, suicidal or homicidal ideation, hallucinations. All Other Systems: Reviewed and Negative <Acacia Fleming - Last Filed: 01/25/18 22:52> *Physical Exam - Vital Signs Last Vital Signs Temp Pulse Resp BP Pulse Ox 99.4 F 55 L 20 132/74 99 01/25/18 18:44 01/25/18 18:44 01/25/18 18:44 01/25/18 18:44 01/25/18 18:44 - Physical Exam Comments: 01/25/18 22:53 GENERAL: Well developed, disheveled. Awake and alert. No acute distress. HEENT: Normocephalic, atraumatic. PERRLA, EOMI. No conjunctival pallor. Sclera are non- icteric. Moist mucous membranes. Oropharynx is clear. NECK: Supple. Full ROM. No JVD. Carotid pulses 2+ and symmetric, without bruits. No thyromegaly. No lymphadenopathy. CARDIOVASCULAR: Regular rate and rhythm. No murmurs, rubs, or gallops. Distal pulses are 2+ and symmetric. PULMONARY: *Performed after breathing treatment* No evidence of respiratory distress. Lungs clear to auscultation bilaterally. No wheezing, rales or rhonchi. ABDOMINAL: Soft. Non-tender. Non-distended. No rebound or guarding. No organomegaly. Normoactive bowel sounds. MUSCULOSKELETAL Normal range of motion at all joints. No bony deformities or tenderness. No CVA tenderness. EXTREMITIES: No cyanosis. No clubbing. No edema. No calf tenderness. SKIN: Warm and dry. Normal capillary refill. No rashes. No jaundice. NEUROLOGICAL: Alert, awake, appropriate. Cranial nerves 2-12 intact. No deficits to light touch and temperature in face, upper extremities and lower extremities. No motor deficits in the in face, upper extremities and lower extremities. Normoreflexic in the upper and lower extremities. Normal speech. Toes are down-going bilaterally. Gait is normal without ataxia. PSYCHIATRIC: Cooperative. Good eye contact. Appropriate mood and affect. <Acacia Fleming - Last Filed: 01/25/18 22:52> - Vital Signs Last Vital Signs Temp Pulse Resp BP Pulse Ox 99.4 F 55 L 20 132/74 99 01/25/18 18:44 01/25/18 18:44 01/25/18 18:44 01/25/18 18:44 01/25/18 18:44 <Viktoria Meléndez - Last Filed: 01/26/18 01:34> ED Treatment Course - LABORATORY CBC & Chemistry Diagram: 01/25/18 21:29 01/25/18 21:29 - ADDITIONAL ORDERS Additional order review: Laboratory Results 01/25/18 01/25/18 21:29 21:29 PT with INR 16.70 H INR 1.48 H Sodium 139 Potassium 4.7 Chloride 105 Carbon Dioxide 29 Anion Gap 5 L BUN 19 H D Creatinine 1.1 Creat Clearance w eGFR > 60 Random Glucose 92 Calcium 8.7 Total Bilirubin 0.4 D AST 14 L D ALT 13 D Alkaline Phosphatase 136 H Total Protein 7.1 Albumin 4.0 D 01/25/18 21:29 RBC 4.46 MCV 92.5 MCHC 32.2 RDW 14.6 MPV 11.1 D Neutrophils % 75.4 Lymphocytes % 16.0 Monocytes % 7.3 Eosinophils % 0.9 Basophils % 0.4 - Medications Given in the ED: ED Medications Discontinued Medications Generic Name Dose Route Start Last Admin Trade Name Janie PRN Reason Stop Dose Admin Albuterol Sulfate 1 amp 01/25/18 19:41 01/25/18 21:28 Ventolin 0.083% Nebulizer Soln - NEB 01/25/18 19:42 1 amp ONCE ONE Administration Methylprednisolone Sodium Succinate 125 mg 01/25/18 19:41 01/25/18 21:28 Solu-Medrol - IVPB 01/25/18 19:42 125 mg ONCE ONE Administration <Acacia Fleming - Last Filed: 01/25/18 22:52> - LABORATORY CBC & Chemistry Diagram: 01/25/18 21:29 01/25/18 21:29 - ADDITIONAL ORDERS Additional order review: Laboratory Results 01/25/18 01/25/18 21:29 21:29 PT with INR 16.70 H INR 1.48 H Sodium 139 Potassium 4.7 Chloride 105 Carbon Dioxide 29 Anion Gap 5 L BUN 19 H D Creatinine 1.1 Creat Clearance w eGFR > 60 Random Glucose 92 Calcium 8.7 Total Bilirubin 0.4 D AST 14 L D ALT 13 D Alkaline Phosphatase 136 H Total Protein 7.1 Albumin 4.0 D 01/25/18 21:29 RBC 4.46 MCV 92.5 MCHC 32.2 RDW 14.6 MPV 11.1 D Neutrophils % 75.4 Lymphocytes % 16.0 Monocytes % 7.3 Eosinophils % 0.9 Basophils % 0.4 - RADIOLOGY Radiology Studies Ordered: Category Date Time Status CHEST X-RAY PORTABLE* [RAD] Stat Radiology 01/25/18 19:42 Taken - Medications Given in the ED: ED Medications Discontinued Medications Generic Name Dose Route Start Last Admin Trade Name Janie PRN Reason Stop Dose Admin Albuterol Sulfate 1 amp 01/25/18 19:41 01/25/18 21:28 Ventolin 0.083% Nebulizer Soln - NEB 01/25/18 19:42 1 amp ONCE ONE Administration Methylprednisolone Sodium Succinate 125 mg 01/25/18 19:41 01/25/18 21:28 Solu-Medrol - IVPB 01/25/18 19:42 125 mg ONCE ONE Administration <Viktoria Meléndez - Last Filed: 01/26/18 01:34> Medical Decision Making - Medical Decision Making 01/26/18 01:33 Patient reassessment, patient states he is always on 3 L nasal cannula and is comfortable at this time. He is not hypoxic. He refused his ABG - plan is to repeat his troponin at 3:30 AM <Viktoria Meléndez - Last Filed: 01/26/18 01:34> *DC/Admit/Observation/Transfer - Attestations Scribe Attestion: 01/25/18 22:54 Documentation prepared by Acacia Fleming, acting as medical device engineer for Viktoria Meléndez MD. <Acacia Fleming - Last Filed: 01/25/18 22:52> - Discharge Dispostion Decision to Admit order: Yes <Viktoria Meléndez - Last Filed: 01/26/18 01:34> Diagnosis at time of Disposition: COPD (chronic obstructive pulmonary disease) Qualifiers: COPD type: COPD with acute exacerbation Qualified Code(s): J44.1 - Chronic obstructive pulmonary disease with (acute) exacerbation
[2018-01-25] MEDS ORDERED: ASPIRIN 81 MG CHEWABLE TABLETS PO ONE (23:48)
[2018-01-26] MEDS ORDERED: ASPIRIN 81 MG CHEWABLE TABLETS ONE (01:43)
[2018-01-26 01:46] VITALS: BP 138/78; PULSE 66
--- NOTE | 2018-01-26 05:18 | PDOC ---
*Physical Exam - Vital Signs Last Vital Signs Temp Pulse Resp BP Pulse Ox 99.4 F 66 18 138/78 99 01/25/18 18:44 01/26/18 01:45 01/26/18 01:45 01/26/18 01:45 01/25/18 18:44 ED Treatment Course - LABORATORY CBC & Chemistry Diagram: 01/25/18 21:29 01/25/18 21:29 - ADDITIONAL ORDERS Additional order review: Laboratory Results 01/26/18 01/25/18 01/25/18 04:20 21:29 21:29 PT with INR INR Sodium Potassium Chloride Carbon Dioxide Anion Gap BUN Creatinine Creat Clearance w eGFR Random Glucose Calcium Total Bilirubin AST ALT Alkaline Phosphatase Troponin I < 0.02 < 0.02 B-Natriuretic Peptide 380.94 H Total Protein Albumin 01/25/18 01/25/18 21:29 21:29 PT with INR 16.70 H INR 1.48 H Sodium 139 Potassium 4.7 Chloride 105 Carbon Dioxide 29 Anion Gap 5 L BUN 19 H D Creatinine 1.1 Creat Clearance w eGFR > 60 Random Glucose 92 Calcium 8.7 Total Bilirubin 0.4 D AST 14 L D ALT 13 D Alkaline Phosphatase 136 H Troponin I B-Natriuretic Peptide Total Protein 7.1 Albumin 4.0 D 01/25/18 21:29 RBC 4.46 MCV 92.5 MCHC 32.2 RDW 14.6 MPV 11.1 D Neutrophils % 75.4 Lymphocytes % 16.0 Monocytes % 7.3 Eosinophils % 0.9 Basophils % 0.4 - Medications Given in the ED: ED Medications Discontinued Medications Generic Name Dose Route Start Last Admin Trade Name Jnaie PRN Reason Stop Dose Admin Albuterol Sulfate 1 amp 01/25/18 19:41 01/25/18 21:28 Ventolin 0.083% Nebulizer Soln - NEB 01/25/18 19:42 1 amp ONCE ONE Administration Aspirin 81 mg 01/25/18 23:48 01/26/18 01:41 Asa - PO 01/25/18 23:49 81 mg ONCE ONE Administration Methylprednisolone Sodium Succinate 125 mg 01/25/18 19:41 01/25/18 21:28 Solu-Medrol - IVPB 01/25/18 19:42 125 mg ONCE ONE Administration Medical Decision Making - Medical Decision Making 01/26/18 05:14 I received this patient on sign out Pt pending repeat troponin Presented with likely COPD exacerbation 01/26/18 05:14 Laboratory Tests 01/25/18 01/25/18 01/26/18 21:29 21:29 04:20 Alkaline Phosphatase 136 H Troponin I < 0.02 < 0.02 Discharge to home Follow up with PMD Clinical Impression: COPD exacerbation *DC/Admit/Observation/Transfer Diagnosis at time of Disposition: COPD (chronic obstructive pulmonary disease) Qualifiers: COPD type: COPD with acute exacerbation Qualified Code(s): J44.1 - Chronic obstructive pulmonary disease with (acute) exacerbation - Discharge Dispostion Disposition: HOME Condition at time of disposition: Stable Decision to Admit order: No - Referrals - Patient Instructions Printed Discharge Instructions: DI for Chronic Obstructive Pulmonary Disease - Post Discharge Activity
--- NOTE | 2018-01-26 09:47 | EKG ---
Test Reason : Blood Pressure : / mmHG Vent. Rate : 056 BPM Atrial Rate : 056 BPM P-R Int : 148 ms QRS Dur : 076 ms QT Int : 448 ms P-R-T Axes : 031 071 066 degrees QTc Int : 432 ms SINUS BRADYCARDIA WITH PREMATURE ATRIAL COMPLEXES OTHERWISE NORMAL ECG WHEN COMPARED WITH ECG OF 25-SEP-2017 11:22, PREMATURE ATRIAL COMPLEXES ARE NOW PRESENT T WAVE INVERSION NO LONGER EVIDENT IN ANTERIOR LEADS Confirmed by WILDER RAIN, NEW ([id number] on 01/26/2018 9:47:25 AM Referred By: Confirmed By:NEW HDZ MD
== END 2018-01-26 06:05 | disposition home or self-care (01) ==
LOC: JER 18:14
PROC: 3E0333Z Introduction of Anti-inflammatory into Peripheral Vein, Percutaneous Approach (ICD-10-PCS; principal; 2018-01-25)
PROC: 3E0F7GC Introduction of Other Therapeutic Substance into Respiratory Tract, Via Natural or Artificial Opening (ICD-10-PCS; 2018-01-25)
DX: J44.1 Chronic obstructive pulmonary disease with (acute) exacerbation (principal); I25.10 Atherosclerotic heart disease of native coronary artery without angina pectoris; I11.0 Hypertensive heart disease with heart failure; Z87.891 Personal history of nicotine dependence; I48.91 Unspecified atrial fibrillation; Z79.01 Long term (current) use of anticoagulants; I73.89 Other specified peripheral vascular diseases; Z86.79 Personal history of other diseases of the circulatory system
CPT/HCPCS: 36415; 71045-TC-FY; 80053; 83880; 84484; 85025; 85610; 93005; 93010; 94640; 96374; 99283-25

== ENCOUNTER 2018-10-15 10:31 | Inpatient (IN) | payer OTHER ==
--- NOTE | 2018-10-15 11:24 | PDOC ---
History of Present Illness <Landy Altamirano - Last Filed: 10/15/18 13:46> - General History Source: Patient, Old Records Exam Limitations: No Limitations - History of Present Illness Initial Comments: HPI: 63 y/o male presenting to [facility] ER complaining of progressively worsening episodes of chest pain and shortness of breath over the past several days. Pain is described as a burning sensation in the center of the chest without radiation to arms, back, or neck. Denies metallic taste or burning in mouth. Unable to identify eliciting or worsening factors. Some relief with PO Tums. Does not believe the shortness of breath is made better or worse with the chest pain. Reports increase cough productive of clear sputum, no blood. Has an extensive history of COPD on chronic home oxygen at 2 LPM. Further endorsing point tenderness to lower right chest wall after falling on ice 4 days ago. Medical Hx: - A-fib, managed with Eliquis - HTN, managed with Metoprolol and Valsartan - COPD <Pj Bai - Last Filed: 10/15/18 20:19> - General Chief Complaint: Shortness of Breath Stated Complaint: CHEST PAIN Time Seen by Provider: 10/15/18 11:06 Past History <Landy Altamirano - Last Filed: 10/15/18 13:46> - Past Medical History Cardiac Disorders: Yes (CHF o2 dependent) COPD: Yes HTN: Yes - Surgical History Abdominal Surgery: Yes (AAA repair) Cardiac Surgery: Yes - Suicide/Smoking/Psychosocial Hx Smoking History: Former smoker Have you smoked in the past 12 months: No Number of Cigarettes Smoked Daily: 10 If you are a former smoker, when did you quit?: 2 years Information on smoking cessation initiated: No Hx Alcohol Use: No Drug/Substance Use Hx: No Substance Use Type: None <Pj Bai - Last Filed: 10/15/18 20:19> - Past Medical History Allergies/Adverse Reactions: Allergies Allergy/AdvReac Type Severity Reaction Status Date / Time Penicillins Allergy Verified 10/15/18 10:41 Home Medications: Ambulatory Orders Methadone [Dolophine -] 70 mg PO DAILY 09/25/17 Metoprolol Tartrate [Lopressor -] 50 mg PO BID 09/25/17 Rivaroxaban [Xarelto -] 20 mg PO DAILY 09/25/17 Valsartan 320 mg PO HS 09/25/17 metFORMIN HCL [Glucophage -] 500 mg PO BID 09/25/17 Albuterol Sulfate Inhaler - [Ventolin HFA Inhaler -] 1 - 2 inh PO QID PRN #1 inhaler 01/26/18 Review of Systems - Review of Systems Able to Perform ROS?: Yes Comments:: In addition to that documented in the HPI above, the additional ROS was obtained : Constitutional: Denies fevers or chills Eyes: Denies vision changes ENMT: Denies sore throat CV: Per HPI Resp: Per HPI GI: Denies vomiting or diarrhea : Denies painful urination MSK: Per HPI Skin: Denies new rashes Neuro: Denies new numbness or tingling or weakness Endocrine: Denies polyuria Heme: Denies bleeding or bruising <Pj Bai - Last Filed: 10/15/18 20:19> *Physical Exam - Vital Signs Last Vital Signs Temp Pulse Resp BP Pulse Ox 99.3 F 100 H 22 H 98/70 98 10/15/18 12:32 10/15/18 12:16 10/15/18 12:16 10/15/18 12:16 10/15/18 12:16 <Landy Altamirano - Last Filed: 10/15/18 13:46> - Vital Signs Last Vital Signs Temp Pulse Resp BP Pulse Ox 98.1 F 100 H 20 156/98 99 10/15/18 10:38 10/15/18 10:38 10/15/18 10:38 10/15/18 10:38 10/15/18 10:38 - Physical Exam Comments: Constitutional: Non-toxic adult male in mild distress but no obvious discomfort. Found sitting upright on edge of hospital bed. Alert and oriented x4. Answered all questions appropriately and completely. Speech was non-labored , non-pressured. Head: Normocephalic. No obvious external signs of trauma. Eyes: Sclerae white. Ears: Hearing grossly intact. Nose: No nasal discharge. Neck: Supple, trachea is midline. Cardiovascular / Chest: Tachycardic rate and irregularly irregular rhythm. No murmur, rubs, clicks, or gallops. Peripheral pulses: radial pulses rapid. Point tenderness to lower right anterior chest wall without overlying signs of trauma. Possible underlying bony deformity. Respiratory: Barrel chest. Breathing shallow but unlabored. Equal chest rise and fall. Rhonchi in right middle field. Trace wheezing through out. Gastrointestinal: abdomen is soft, non-tender, non-distended. Neuro: Alert and oriented. Moving all four extremities spontaneously. Skin: Warm, dry, and intact. No diaphoresis. Psych: Affect: appropriate. Mood: normal. <Pj Bai - Last Filed: 10/15/18 20:19> Moderate Sedation - Procedure Monitoring Vital Signs: Procedure Monitoring Vital Signs Temperature 99.3 F 10/15/18 12:32 Pulse Rate 100 H 10/15/18 12:16 Respiratory Rate 22 H 10/15/18 12:16 Blood Pressure 98/70 10/15/18 12:16 O2 Sat by Pulse Oximetry (%) 98 10/15/18 12:16 <Landy Altamirano - Last Filed: 10/15/18 13:46> - Procedure Monitoring Vital Signs: Procedure Monitoring Vital Signs Temperature 98.1 F 10/15/18 10:38 Pulse Rate 100 H 10/15/18 10:38 Respiratory Rate 20 10/15/18 10:38 Blood Pressure 156/98 10/15/18 10:38 O2 Sat by Pulse Oximetry (%) 99 10/15/18 10:38 <Pj Bai - Last Filed: 10/15/18 20:19> ED Treatment Course - LABORATORY CBC & Chemistry Diagram: 10/15/18 11:13 10/15/18 11:13 - ADDITIONAL ORDERS Additional order review: Laboratory Results 10/15/18 10/15/18 10/15/18 11:13 11:13 11:13 PT with INR 14.40 H INR 1.22 H Sodium 141 Potassium 4.9 Chloride 100 Carbon Dioxide 32 Anion Gap 9 BUN 40 H Creatinine 1.6 H Creat Clearance w eGFR 43.87 Random Glucose 266 H Calcium 10.8 H Magnesium 2.4 Total Bilirubin 0.3 AST 57 H ALT 65 H Alkaline Phosphatase 169 H Troponin I 0.17 H B-Natriuretic Peptide 9722.7 H Total Protein 6.9 Albumin 3.6 10/15/18 11:13 RBC 4.65 MCV 93.5 MCHC 33.0 RDW 15.7 MPV 10.9 Neutrophils % 93.9 H D Lymphocytes % 3.7 L D Monocytes % 2.1 L Eosinophils % 0.0 D Basophils % 0.3 - RADIOLOGY Radiology Studies Ordered: Category Date Time Status CHEST PA & LAT [RAD] Stat Radiology 10/15/18 11:06 Completed - Medications Given in the ED: ED Medications Discontinued Medications Generic Name Dose Route Start Last Admin Trade Name Pierreq PRN Reason Stop Dose Admin Acetaminophen 975 mg 10/15/18 11:39 10/15/18 11:55 Tylenol - PO 10/15/18 11:40 975 mg ONCE ONE Administration Diltiazem HCl 20 mg 10/15/18 11:30 10/15/18 11:35 Cardizem Injection - IVPUSH 10/15/18 11:31 20 mg ONCE ONE Administration Diltiazem HCl 60 mg 10/15/18 11:40 10/15/18 11:54 Cardizem - PO 10/15/18 11:41 60 mg ONCE ONE Administration Lidocaine 1 patch 10/15/18 11:39 10/15/18 11:55 Lidoderm Patch - TP 10/15/18 11:40 1 patch ONCE ONE Administration <Landy Altamirano - Last Filed: 10/15/18 13:46> - LABORATORY CBC & Chemistry Diagram: 10/15/18 11:13 10/15/18 11:13 <Pj Bai - Last Filed: 10/15/18 20:19> Medical Decision Making - Medical Decision Making agree with resident note given abx for pna. duonebs for copd also NSTEMI with elevated trop/bnp, trend trops, ASA given, serial ekg/tele and close monitoring. gentle fluids for mildly elevated Cr. Afib RVR controlled no fevers here rectally, at baseline O2 use without derangements or respiratory distress. 10/15/18 13:45 <Landy Altamirano - Last Filed: 10/15/18 13:46> - Medical Decision Making *Reviewed vital signs, nursing notes, and prior visit documentation (if available). 63 y/o male presenting in rapid a-fib with chest pain and shortness of breath. Recent fall with possible chest wall injury. PMH includes Afib, CHF, and COPD. Initial EKG showed a-fib with RVR. Administered IV diltiazem. Rate converted to atrial flutter with variable block with a ventricular rate of 95 BPM. Administered PO diltiazem. Second EKG showed a-fib with ventricular rate of 95 bpm. CBC remarkable for leukocytosis with left shift. Possible stress reaction to intermittent periods of rapid a-fib over the past week. Also possible infectious in origin. CXR remarkable for possible right lower lobe pneumonia but no obvious rib fractures per ED wet read. Official radiology report pending. Will treat with ceftriaxone and azithromycin. Troponin elevated likely secondary to demand ischemia from tachycardia versus NSTEMI (low suspicion). Administered ASA. BNP elevated also elevated and likely secondary to the rapid arrhythmia. No large pleural effusion on CXR. Note small increase in Cr. Will administer small bolus of LR and encourage PO hydration. Will admit the pt for rapid afib, chest pain, SOB, and chest pain. <Pj Bai - Last Filed: 10/15/18 20:19> *DC/Admit/Observation/Transfer - Discharge Dispostion Decision to Admit order: Yes Decision to Admit order Date/Time: 10/15/18 13:47 <Landy Altamirano - Last Filed: 10/15/18 13:46> - Discharge Dispostion Decision to Admit order: Yes <Pj Bai - Last Filed: 10/15/18 20:19> Diagnosis at time of Disposition: Atrial fibrillation, rapid, Shortness of breath, Non-ST elevation myocardial infarction (NSTEMI) COPD (chronic obstructive pulmonary disease) Qualifiers: COPD type: unspecified COPD Qualified Code(s): J44.9 - Chronic obstructive pulmonary disease, unspecified Chest pain Qualifiers: Chest pain type: unspecified Qualified Code(s): R07.9 - Chest pain, unspecified - Discharge Dispostion Condition at time of disposition: Stable
[2018-10-15 11:26] LABS: BASO % 0.3 % (0-2.0); HEMATOCRIT 43.5 % (35.4-49); HEMOGLOBIN 14.4 GM/dL (11.7-16.9); LYMPH % 3.7 % (8-40); MCH 30.9 pg (25.7-33.7); MEAN CELL VOLUME 93.5 fl (80-96); MEAN PLT VOLUME 10.9 fl (7.5-11.1); MONO % 2.1 % (3.8-10.2); NEUT % 93.9 % (42.8-82.8); PLATELET COUNT 177 K/MM3 (134-434); RBC 4.65 M/mm3 (4.00-5.60); RDW 15.7 % (11.9-15.9); WHITE BLOOD COUNT 19.3 K/mm3 (4.0-10.0)
[2018-10-15] MEDS ORDERED: dilTIAZem HCL 50 MG/10 ML - 10 ML VIAL IVPUSH ONE (11:30)
[2018-10-15] MEDS ORDERED: dilTIAZem HCL 125 MG/25 ML - 25 ML VIAL ONE (11:33)
[2018-10-15] MEDS ORDERED: ALBUTEROL SO4 2.5/IPRATROPIUM 0.5 INH SOL 3 ML VIAL.NEB. NEB ONE (11:38)
[2018-10-15] MEDS ORDERED: LIDOCAINE 5% TOPICAL PATCH TP ONE (11:39)
[2018-10-15] MEDS ORDERED: ACETAMINOPHEN 500 MG TABLET (FP) PO ONE (11:39)
[2018-10-15] MEDS ORDERED: dilTIAZem HCL 60 MG TABLET (FP) PO ONE (11:40)
[2018-10-15 11:42] LABS: INR 1.22 (0.83-1.09); PROTHROMBIN TIME (PATIENT) 14.4 SEC (9.7-13.0)
[2018-10-15] MEDS ORDERED: ACETAMINOPHEN 325 MG TABLET (FP) ONE (11:45)
[2018-10-15] MEDS ORDERED: LIDOCAINE 5% TOPICAL PATCH ONE (11:45)
[2018-10-15] MEDS ORDERED: dilTIAZem HCL 60 MG TABLET (FP) ONE (11:53)
--- NOTE | 2018-10-15 11:54 | PDOC ---
Attending Attestation - Resident Resident Name: BaiPj - ED Attending Attestation I have performed the following: I have examined & evaluated the patient, The case was reviewed & discussed with the resident, I agree w/resident's findings & plan - HPI HPI: 10/15/18 11:45 62 year old male with past medical history of hypertension, hyperlipidemia, diabetes, CHF, COPD (on 2L O2 at home), AAA repair, Afib (on Xarelto), PAD, s/p bifemoral bypass presenting with midsternal burning CP and SOB intermittently x several days, worse today. Of note he has also slipped and fallen on ice ~4 days ago, landing on his right side. No LOC or head or external trauma at that time. He states it is difficult for him to take a deep breath due to the pain. He also endorses clear productive cough. No fever or chills. Went to PMD ~2 days ago, noted to have tachycardia in setting of Afib at that time as well and told to ED if symptoms persist, no imaging done at that time. Cafeteria Director: Dr. Katy Bobo Hx: Former smoker Allergies: Penicillins - Physicial Exam PE: 10/15/18 11:45 NAD, PERRL, EOMI, nl conjunctiva, anicteric; neck supple. no respiratory distress, poor inspiratory and expiratory breaths, diminished breath sounds bilaterally. +right lateral chest wall TTP, no ecchymosis or crepitus. irregularly irregular, tachycardic abdomen soft nontender, midline surgical scar vertically. MORE x4, no focal neuro deficits. No peripheral edema. normal color for ethnicity, WWP. no calf tenderness. - Medical Decision Making 10/15/18 11:48 See HPI for details Vital signs reviewed, +tachycardic. on supp O2 for COPD DDx. COPD exac, arrhythmia, ACS, pulmnonary edema, rib fx, pulm/chest contusion , effusion. Prior notes reviewed, including admissions, discharges and consultations. laboratory results and imaging reviewed, basic labs and lytes wnl, notable for + significant leukocytosis, 19K; Cr mildly elevated 1.6, increased from prior. CXR_prominent interstitial markings, no focal consolidation, no retrocardiac opacity, no pulm edema, normal cardiac silhouette, +right pleural scarring vs fluid, pleural reaction noted. treat as infectious vs COPD changes, with hyperaeration. Cardiac panel_with elevated trop 0.17, priors neg, likely demand vs angina; BNP also sig elevated, nonspecific though. EKG Afib RVR, no interval abnormalities, narrow QRS, diffuse ST depressions and Nonspecific T wave abnormalities likely rate related. ED course: diltiazem x1 IV, PO dose to follow. rate controlled with HR <100s duonebs for the COPD; no steroids with dm history, risk of hyperglycemia/DKA cef/azithromycin for CAP coverage, with underlying comorbidites and respiratory conditions. analgesia with tylenol and topical lidoderm patch. dispo: admit for COPD, pneumonia, Afib RVR, tele, r/o ACS. medical management. 10/15/18 13:25
[2018-10-15 11:55] LABS: N-TERMINAL BNP 9722.7 pg/ml (5-125)
[2018-10-15 11:56] LABS: ALBUMIN 3.6 g/dl (3.4-5.0); ALK PHOS 169 U/L (45-117); ANION GAP 9 MMOL/L (8-16); BILIRUBIN,TOTAL 0.3 mg/dL (0.2-1); BLOOD UREA NITROGEN 40 mg/dL (7-18); CALCIUM 10.8 mg/dL (8.5-10.1); CHLORIDE 100 mmol/L (98-107); CO2 32 mmol/L (21-32); CREATININE 1.6 mg/dL (0.55-1.3); GLUCOSE,RANDOM 266 mg/dL (74-106); MAGNESIUM 2.4 mg/dL (1.8-2.4); POTASSIUM 4.9 mmol/L (3.5-5.1); SGOT/AST 57 U/L (15-37); SGPT/ALT 65 U/L (13-61); SODIUM 141 mmol/L (136-145); TOT PROT 6.9 g/dl (6.4-8.2)
--- NOTE | 2018-10-15 12:50 | EKG ---
Test Reason : Blood Pressure : / mmHG Vent. Rate : 095 BPM Atrial Rate : 416 BPM P-R Int : 000 ms QRS Dur : 072 ms QT Int : 356 ms P-R-T Axes : 000 065 -66 degrees QTc Int : 447 ms POOR DATA QUALITY, INTERPRETATION MAY BE ADVERSELY AFFECTED ATRIAL FIBRILLATION NONSPECIFIC ST AND T WAVE ABNORMALITY ABNORMAL ECG Confirmed by DAYANARA SMART MD ([id number]) on 10/15/2018 12:49:47 PM Referred By: Confirmed By:DAYANARA SMART MD
--- NOTE | 2018-10-15 12:52 | EKG ---
Test Reason : Blood Pressure : / mmHG Vent. Rate : 135 BPM Atrial Rate : 441 BPM P-R Int : 000 ms QRS Dur : 076 ms QT Int : 294 ms P-R-T Axes : 000 095 229 degrees QTc Int : 441 ms POOR DATA QUALITY, INTERPRETATION MAY BE ADVERSELY AFFECTED ATRIAL FIBRILLATION WITH RAPID VENTRICULAR RESPONSE CANNOT RULE OUT ANTERIOR INFARCT , AGE UNDETERMINED MARKED ST ABNORMALITY, POSSIBLE INFEROLATERAL SUBENDOCARDIAL INJURY ABNORMAL ECG WHEN COMPARED WITH ECG OF 25-JAN-2018 23:53, SIGNIFICANT CHANGES HAVE OCCURRED Confirmed by DAYANARA SMART MD ([id number]) on 10/15/2018 12:52:30 PM Referred By: Confirmed By:DAYANARA SMART MD
[2018-10-15] MEDS ORDERED: CEFTRIAXONE 1,000 MG in DEXTROSE 5%-WATER - 50 ML IVPB ONE (13:06)
[2018-10-15] MEDS ORDERED: AZITHROMYCIN 250 MG TABLET PO ONE (13:08)
[2018-10-15] MEDS ORDERED: SODIUM CHLORIDE 0.9% 500 ML INFUS.BAG IV ONE (13:29)
[2018-10-15] MEDS ORDERED: ASPIRIN 81 MG CHEWABLE TABLETS PO ONE (13:44)
[2018-10-15] MEDS ORDERED: ASPIRIN 81 MG CHEWABLE TABLETS ONE (13:54)
[2018-10-15] MEDS ORDERED: AZITHROMYCIN 250 MG TABLET ONE (13:55)
[2018-10-15] MEDS ORDERED: CEFTRIAXONE 1 GM/50 ML BAG ONE (13:55)
[2018-10-15] MEDS ORDERED: ALBUTEROL SO4 0.083% IH SOL 2.5 MG/3 ML VIAL.NEB. NEB PRN (14:57)
--- NOTE | 2018-10-15 15:25 | HP ---
CHIEF COMPLAINT: SOB PCP: HISTORY OF PRESENT ILLNESS: patient is a 63 y/o male with a history of afib, HTN, COPD, HLD, CHF, and DM who presents with SOB. Patient reports he has been feeling short of breath for the past two days. He has also been coughing and bringing up clear sputum. Patient is typically on 2 L of Oxygen at home. Patient also reports he has been having burning in his chest for the past four months. The burning has become more frequent. He thought it was heart burn so he would take tums for the pain and it got better. The burning pain does not radiate and he denies any back pain. Patient denies any sick contacts. Patient also complains of being constipated. Patient was found to be in afib with RVR in the ED. With medication the afib resolved. Denies fever, chills, nausea, dysuria, hematuria, or abdominal pain. ER course was notable for: (1) diltiazem IV push 20 mg (2) (3) Recent Travel: denies PAST MEDICAL HISTORY: afib, HTN, COPD, HLD, CHF, and DM, on 2 L of O2 at home PAST SURGICAL HISTORY: 2 yrs ago abdominal aortic bypass Social History: Smoking: quit 2 years ago Alcohol: denies Drugs: denies for 10 years Family History: Allergies Penicillins Allergy (Verified 10/15/18 10:41) HOME MEDICATIONS: Home Medications Medication Instructions Recorded Methadone [Dolophine -] 70 mg PO DAILY 09/25/17 Metoprolol Tartrate [Lopressor -] 50 mg PO BID 09/25/17 Rivaroxaban [Xarelto -] 20 mg PO DAILY 09/25/17 Valsartan 320 mg PO HS 09/25/17 metFORMIN HCL [Glucophage -] 500 mg PO BID 09/25/17 Albuterol Sulfate Inhaler - 1 - 2 inh PO QID PRN #1 inhaler 01/26/18 [Ventolin HFA Inhaler -] REVIEW OF SYSTEMS CONSTITUTIONAL: Absent: fever, chills, diaphoresis, generalized weakness, malaise, loss of appetite, weight change HEENT: Absent: rhinorrhea, nasal congestion, throat pain, throat swelling, difficulty swallowing, mouth swelling, ear pain, eye pain, visual changes CARDIOVASCULAR: Absent: chest pain, syncope, palpitations, irregular heart rate, lightheadedness , peripheral edema RESPIRATORY: cough, shortness of breath, Absent: dyspnea with exertion, orthopnea, wheezing, stridor, hemoptysis GASTROINTESTINAL: Absent: abdominal pain, abdominal distension, nausea, vomiting, diarrhea, constipation, melena, hematochezia GENITOURINARY: Absent: dysuria, frequency, urgency, hesitancy, hematuria, flank pain, genital pain MUSCULOSKELETAL: Absent: myalgia, arthralgia, joint swelling, back pain, neck pain SKIN: Absent: rash, itching, pallor HEMATOLOGIC/IMMUNOLOGIC: Absent: easy bleeding, easy bruising, lymphadenopathy, frequent infections ENDOCRINE: Absent: unexplained weight gain, unexplained weight loss, heat intolerance, cold intolerance NEUROLOGIC: Absent: headache, focal weakness or paresthesias, dizziness, unsteady gait, seizure, mental status changes, bladder or bowel incontinence PSYCHIATRIC: Absent: anxiety, depression, suicidal or homicidal ideation, hallucinations. PHYSICAL EXAMINATION Vital Signs - 24 hr 10/15/18 10/15/18 10/15/18 10:38 11:00 11:30 Temperature 98.1 F Pulse Rate 100 H Pulse Rate [ 140 H Apical] Respiratory 20 18 Rate Blood Pressure 156/98 Blood Pressure 140/104 H [Left Arm] O2 Sat by Pulse 99 99 98 Oximetry (%) 10/15/18 10/15/18 10/15/18 11:45 12:16 12:32 Temperature 99.3 F Pulse Rate Pulse Rate [ 105 H 100 H Apical] Respiratory 20 22 H Rate Blood Pressure Blood Pressure 112/72 98/70 [Left Arm] O2 Sat by Pulse 98 98 Oximetry (%) 10/15/18 14:04 Temperature Pulse Rate Pulse Rate [ 87 Apical] Respiratory 20 Rate Blood Pressure Blood Pressure 109/79 [Left Arm] O2 Sat by Pulse 98 Oximetry (%) GENERAL: Awake, alert, and fully oriented, in no acute distress. HEAD: Normal with no signs of trauma. EYES: Pupils equal, round and reactive to light, extraocular movements intact EARS, NOSE, THROAT: Ears normal, nares patent, oropharynx clear without exudates. Moist mucous membranes. nasal cannula in place NECK: Normal range of motion, supple without lymphadenopathy, JVD, or masses. LUNGS: Breath sounds equal, clear to auscultation bilaterally. No wheezes, and no crackles. No accessory muscle use. HEART: Regular rate and rhythm, normal S1 and S2 without murmur, rub or gallop. ABDOMEN: Soft, nontender, not distended, normoactive bowel sounds, no guarding, no rebound, no masses. MUSCULOSKELETAL: Normal range of motion at all joints. No bony deformities or tenderness. No CVA tenderness LOWER EXTREMITIES: 2+ pulses, warm, well-perfused. No calf tenderness. 1+ pitting edema NEUROLOGICAL: Cranial nerves II-XII intact. Normal speech. Normal gait. PSYCHIATRIC: Cooperative. Good eye contact. Appropriate mood and affect. SKIN: Warm, dry, normal turgor, no rashes or lesions noted, normal capillary refill. CBCD WBC 19.3 K/mm3 (4.0-10.0) H 10/15/18 11:13 RBC 4.65 M/mm3 (4.00-5.60) 10/15/18 11:13 Hgb 14.4 GM/dL (11.7-16.9) 10/15/18 11:13 Hct 43.5 % (35.4-49) 10/15/18 11:13 MCV 93.5 fl (80-96) 10/15/18 11:13 MCHC 33.0 g/dl (32.0-35.9) 10/15/18 11:13 RDW 15.7 % (11.9-15.9) 10/15/18 11:13 Plt Count 177 K/MM3 (134-434) 10/15/18 11:13 MPV 10.9 fl (7.5-11.1) 10/15/18 11:13 CMP Sodium 141 mmol/L (136-145) 10/15/18 11:13 Potassium 4.9 mmol/L (3.5-5.1) 10/15/18 11:13 Chloride 100 mmol/L (98-107) 10/15/18 11:13 Carbon Dioxide 32 mmol/L (21-32) 10/15/18 11:13 Anion Gap 9 MMOL/L (8-16) 10/15/18 11:13 BUN 40 mg/dL (7-18) H 10/15/18 11:13 Creatinine 1.6 mg/dL (0.55-1.3) H 10/15/18 11:13 Creat Clearance w eGFR 43.87 (>60) 10/15/18 11:13 Random Glucose 266 mg/dL (74-106) H 10/15/18 11:13 Calcium 10.8 mg/dL (8.5-10.1) H 10/15/18 11:13 Total Bilirubin 0.3 mg/dL (0.2-1) 10/15/18 11:13 AST 57 U/L (15-37) H 10/15/18 11:13 ALT 65 U/L (13-61) H 10/15/18 11:13 Alkaline Phosphatase 169 U/L (45-117) H 10/15/18 11:13 Total Protein 6.9 g/dl (6.4-8.2) 10/15/18 11:13 Albumin 3.6 g/dl (3.4-5.0) 10/15/18 11:13 CARDIAC ENZYMES Troponin I 0.17 ng/ml (0.00-0.05) H 10/15/18 11:13 ASSESSMENT/PLAN: Patient is a 63 y/o male with a history of afib, HTN, COPD, HLD, CHF, and DM who presents with SOB due to afib with RVR. #afib with RVR, controlled - given Diltiazem 20 mg IV push and 60 po in ED - tropinemia 0.17, likely 2/2 to demand ischemia, continue to trend - Cardio: Dr. Burns - continue metoprolol - continue Xarelto - repeat EKG in the morning #SOB 2/2 to afib, resolved - O2 saturation 88-92, with 2L O2 - CXR: mild hyperaeration, blunted R angle, R base atelectasis with fluid in fissure - hx of COPD - nebs q4h prn #CHF, dyastolyic - last echo 08/2017: moderate mitral regurgitation - f/u cardio consult - BMP: 9722 #MADELAINE likely 2/2 to afib, mild CHF exacerb - Cr: 1.6 - renal US - f/u UA - encourage oral hyrdation #constipation - continue senna and docusate #HTN - hold valsartan #DM - hold metformin - SS FEN - diabetic diet - oral hydration - methadone unconfirmed Visit type - Emergency Visit Emergency Visit: Yes ED Registration Date: 10/15/18 Care time: The patient presented to the Emergency Department on the above date and was hospitalized for further evaluation of their emergent condition. - New Patient This patient is new to me today: Yes Date on this admission: 10/15/18 - Critical Care Critical Care patient: No
[2018-10-15 16:03] VITALS: BMI 31.2
[2018-10-15] MEDS: RIVAROXABAN 20 MG TABLET PO SCH (17:30)
[2018-10-15] MEDS: INSULIN SLIDING SCALE (NOVOLOG) 1 VIAL SQ SCH ×2 (17:30→21:08)
[2018-10-15 18:19] LABS: PLATELET ESTIMATE ADEQUATE
--- NOTE | 2018-10-15 18:44 | PN ---
Teaching Attending Note Name of Resident: Kym Kaiser ATTENDING PHYSICIAN STATEMENT I saw and evaluated the patient. I reviewed the resident's note and discussed the case with the resident. I agree with the resident's findings and plan as documented. SUBJECTIVE: 63 year old male with history of Atrial Fibrillation (on Eliquis), HTN, CRF sec to COPD (on 2L O2), HLD, Chronic Diastolic CHF, DM 2, presents with 1 week history of increasing SOB, worse on exertion, cough productive of clear sputum, and intermittent substernal burning, not related to food intake or activity. No hemoptysis/fever/chills. No abdominal pain/nausea/vomiting. He also reports worsening bilateral LE edema over several weeks. OBJECTIVE: Afebrile, Hemodynamically Stable. Last Vital Signs Temp Pulse Resp BP Pulse Ox 98 F 87 19 146/76 100 10/15/18 16:00 10/15/18 16:00 10/15/18 16:00 10/15/18 16:00 10/15/18 16:00 HEENT - Atraumatic, Normocephalic. Heart - S1, S2, RRR Lungs - decreased air entry bibasally - no crackles/wheeze Abdomen - soft, non-tender. Bowel Sounds normal. Extremities - bilateral LE edema++. No calf tenderness. Laboratory Results - last 24 hr 10/15/18 10/15/18 10/15/18 11:13 11:13 11:13 WBC 19.3 H RBC 4.65 Hgb 14.4 Hct 43.5 MCV 93.5 MCH 30.9 MCHC 33.0 RDW 15.7 Plt Count 177 MPV 10.9 Absolute Neuts (auto) 18.1 H Neutrophils % 93.9 H D Lymphocytes % 3.7 L D Monocytes % 2.1 L Eosinophils % 0.0 D Basophils % 0.3 Nucleated RBC % 0 PT with INR 14.40 H INR 1.22 H Sodium 141 Potassium 4.9 Chloride 100 Carbon Dioxide 32 Anion Gap 9 BUN 40 H Creatinine 1.6 H Creat Clearance w eGFR 43.87 POC Glucometer Random Glucose 266 H Calcium 10.8 H Magnesium 2.4 Total Bilirubin 0.3 AST 57 H ALT 65 H Alkaline Phosphatase 169 H Troponin I B-Natriuretic Peptide Total Protein 6.9 Albumin 3.6 10/15/18 10/15/18 11:13 16:38 WBC RBC Hgb Hct MCV MCH MCHC RDW Plt Count MPV Absolute Neuts (auto) Neutrophils % Lymphocytes % Monocytes % Eosinophils % Basophils % Nucleated RBC % PT with INR INR Sodium Potassium Chloride Carbon Dioxide Anion Gap BUN Creatinine Creat Clearance w eGFR POC Glucometer 119 Random Glucose Calcium Magnesium Total Bilirubin AST ALT Alkaline Phosphatase Troponin I 0.17 H B-Natriuretic Peptide 9722.7 H Total Protein Albumin Current Medications Generic Name Dose Route Start Last Admin Trade Name Freq PRN Reason Stop Dose Admin Albuterol Sulfate 1 amp 10/15/18 14:57 Ventolin 0.083% Nebulizer Soln - NEB Q4H PRN SHORT OF BREATH/WHEEZING Docusate Sodium 100 mg 10/15/18 22:00 Colace - PO BID [facility] Insulin Aspart 1 vial 10/15/18 16:30 10/15/18 17:30 Novolog Vial Sliding Scale - SQ Not Given ACHS [facility] Protocol Metoprolol Tartrate 50 mg 10/15/18 22:00 Lopressor - PO BID [facility] Miscellaneous 1 each 10/15/18 22:00 Lidoderm Patch Removal MC DAILY@2200 [facility] Rivaroxaban 20 mg 10/15/18 15:30 10/15/18 17:30 Xarelto - PO 20 mg DAILY [facility] Administration Senna 2 tab 10/15/18 22:00 Senna - PO [facility] Home Medications Medication Instructions Recorded Methadone [Dolophine -] 70 mg PO DAILY 09/25/17 Metoprolol Tartrate [Lopressor -] 50 mg PO BID 09/25/17 Rivaroxaban [Xarelto -] 20 mg PO DAILY 09/25/17 Valsartan 320 mg PO HS 09/25/17 metFORMIN HCL [Glucophage -] 500 mg PO BID 09/25/17 Albuterol Sulfate Inhaler - 1 - 2 inh PO QID PRN #1 inhaler 01/26/18 [Ventolin HFA Inhaler -] ASSESSMENT/PLAN: 63 year old male with history of Atrial Fibrillation (on Xarelto), HTN, CRF sec to COPD (on 2L O2), HLD, Chronic Diastolic CHF, DM 2, presents with 1 week history of increasing SOB, worse on exertion, cough productive of clear sputum, and intermittent substernal burning, not related to food intake or activity. No hemoptysis/fever/chills. No abdominal pain/nausea/vomiting. He also reports worsening bilateral LE edema over several weeks. 1. Atrial Fibrillation with RVR - reverted to SR after Cardizem 20mg IVP and 60mg orally. Troponin elevation 0.17, with atypical chest discomfort. Currently pain free. Will trend serial troponins. ECG - no acute changes. Continue Metoprolol and Xarelto. Telemonitoring. Cardiology consulted. BNP elevated at 9722 - history of Chronic diastolic CHF, last Echo 12/14 normal EF, moderate MR. No vascular congestion on CXR Lasix deferred for now given MADELAINE and pending Renal US. May eventually require slow lasix diuresis. 2. MADELAINE - unclear etiology. Renal US requested. Patient given hydration in ED. Will hold further hydration pending Renal US given significant LE edema. 3. Atypical Chest pain, burning in nature, likely GERD Will start PPI and monitor for improvement 4. HTN - Continue Metoprolol. Valsartan held. 5. Chronic opioid dependence - on Methadone. 6. DM 2- Metformin held. Will maintain on sliding scale Novolog. 7. Chronic Respiratory Failure sec to COPD - Stable - no evidence of exacerbation. Albuterol prn. DVT Px - on Xarelto
[2018-10-15 18:55] LABS: URINE APPEARANCE CLEAR; URINE BILIRUBIN NEGATIVE (<2.0 mg/dL); URINE COLOR YELLOW; URINE GLUCOSE (UA) NEGATIVE (NEGATIVE); URINE KETONE NEGATIVE (NEGATIVE); URINE LEUK ESTERASE NEGATIVE (NEGATIVE); URINE NITRITE NEGATIVE (NEGATIVE); URINE PROTEIN NEGATIVE (NEGATIVE); URINE UROBILINOGEN NEGATIVE mg/dL (0.2-1.0)
[2018-10-15] MEDS: DOCUSATE SODIUM 100 MG CAPSULE (FP) PO SCH (21:07)
[2018-10-15] MEDS: METOPROLOL TARTRATE 50 MG TABLET (FP) PO SCH (21:07)
[2018-10-15] MEDS: PANTOPRAZOLE 40 MG TABLET (FP) PO SCH (21:07)
[2018-10-15] MEDS: SENNOSIDES 8.6MG TABLET (FP) PO SCH (21:08)
[2018-10-15] MEDS ORDERED: LIDOCAINE PATCH REMOVAL MC SCH (22:00)
[2018-10-16] MEDS ORDERED: ACETAMINOPHEN 1000 MG/100 ML VIAL (NON FORMULARY) IVPB ONE (01:00)
[2018-10-16] MEDS ORDERED: dilTIAZem HCL 60 MG TABLET (FP) PO ONE (01:48)
[2018-10-16] MEDS: INSULIN SLIDING SCALE (NOVOLOG) 1 VIAL SQ SCH ×4 (06:08→21:28)
[2018-10-16] MEDS ORDERED: LIDOCAINE 5% TOPICAL PATCH TP ONE (06:31)
[2018-10-16] MEDS ORDERED: MORPHINE SULFATE 2 MG/ML VIAL IVPUSH ONE (06:38)
[2018-10-16 07:21] LABS: INR 1.54 (0.83-1.09); PROTHROMBIN TIME (PATIENT) 18.3 SEC (9.7-13.0)
[2018-10-16 08:19] LABS: ALBUMIN 3.6 g/dl (3.4-5.0); ALK PHOS 130 U/L (45-117); ANION GAP 8 MMOL/L (8-16); BILIRUBIN,TOTAL 0.4 mg/dL (0.2-1); BLOOD UREA NITROGEN 42 mg/dL (7-18); CALCIUM 9.4 mg/dL (8.5-10.1); CHLORIDE 103 mmol/L (98-107); CO2 30 mmol/L (21-32); CREATININE 1.2 mg/dL (0.55-1.3); GLUCOSE,RANDOM 78 mg/dL (74-106); MAGNESIUM 2.3 mg/dL (1.8-2.4); PHOSPHOROUS 4.1 mg/dL (2.5-4.9); POTASSIUM 4.3 mmol/L (3.5-5.1); SGOT/AST 23 U/L (15-37); SGPT/ALT 43 U/L (13-61); SODIUM 141 mmol/L (136-145); TOT PROT 6.6 g/dl (6.4-8.2)
[2018-10-16 08:39] LABS: BASO % 0.1 % (0-2.0); EOS % 0.1 % (0-4.5); HEMATOCRIT 40.3 % (35.4-49); HEMOGLOBIN 13.5 GM/dL (11.7-16.9); LYMPH % 11.5 % (8-40); MCH 31.3 pg (25.7-33.7); MCHC 33.4 g/dl (32.0-35.9); MEAN CELL VOLUME 93.8 fl (80-96); MEAN PLT VOLUME 10.7 fl (7.5-11.1); MONO % 9.1 % (3.8-10.2); NEUT % 79.2 % (42.8-82.8); PLATELET COUNT 162 K/MM3 (134-434); RDW 15.7 % (11.9-15.9); WHITE BLOOD COUNT 17.3 K/mm3 (4.0-10.0)
--- NOTE | 2018-10-16 10:13 | CON.CARD ---
Consult Consult Specialty:: Cardiology Referred by:: Hospitalist Medicine Reason for Consultation:: CHF - History of Present Illness Chief Complaint: CURRY History of Present Illness: Patient is a 63 year old male with underlying history of atrial fibrillation on NOAC (Eliquis), diastolic heart failure, hypertension, COPD on 2L home O2, hyperlipidemia, PAD with history of venous ulceration, opioid dependence (on Methadone for previous Heroine use), PAD s/p aorto-bifemoral bypass admitted through ED with worsening shortness of breath on exertion, substernal chest burning, LE edema bilaterally and productive cough. He denies palpitations, near or true syncope, paroxysmal nocturnal dyspnea or orthopnea. Found to be in rapid afib rate-controlled with IV Cardizem. - History Source History Provided By: Patient Limitations to Obtaining History: No Limitations - Past Medical History Cardio/Vascular: Yes: AFIB, CHF, HTN Pulmonary: Yes: COPD. No: Cancer, O2 Dependent Psych: Yes: Addictions, Depression - Past Surgical History Past Surgical History: Yes: Bypass - Alcohol/Substance Use Hx Alcohol Use: No History of Substance Use: reports: Heroin - Smoking History Smoking history: Former smoker Have you smoked in the past 12 months: No Aproximately how many cigarettes per day: 10 If you are a former smoker, when did you quit?: 2 years - Social History ADL: Independent History of Recent Travel: No Home Medications - Allergies Allergies/Adverse Reactions: Allergies Allergy/AdvReac Type Severity Reaction Status Date / Time Penicillins Allergy Verified 10/15/18 10:41 - Home Medications Home Medications: Ambulatory Orders Methadone [Dolophine -] 70 mg PO DAILY 09/25/17 Metoprolol Tartrate [Lopressor -] 50 mg PO BID 09/25/17 Rivaroxaban [Xarelto -] 20 mg PO DAILY 09/25/17 Valsartan 320 mg PO HS 09/25/17 metFORMIN HCL [Glucophage -] 500 mg PO BID 09/25/17 Albuterol Sulfate Inhaler - [Ventolin HFA Inhaler -] 1 - 2 inh PO QID PRN #1 inhaler 01/26/18 Review of Systems - Review of Systems Cardiovascular: reports: Chest Pain, Edema Respiratory: reports: SOB on Exertion Vital Signs: Vital Signs Temperature 97.7 F 10/16/18 08:12 Pulse Rate 113 H 10/16/18 08:12 Respiratory Rate 22 H 10/16/18 08:22 Blood Pressure 137/93 10/16/18 08:12 O2 Sat by Pulse Oximetry (%) 94 L 10/16/18 08:22 Constitutional: Yes: No Distress, Calm Neck: Yes: Supple Respiratory: Yes: Regular, Diminished, On Nasal O2 Gastrointestinal: Yes: Normal Bowel Sounds, Soft Cardiovascular: Yes: Tachycardia, Pulse Irregular JVD: No Carotid Bruit: No Heart Sounds: Yes: S1, S2 Murmur: Yes: Systolic Murmur, Grade 1 Edema: Yes Edema: LLE: 1+, RLE: 1+ - Other Data Labs, Other Data: CBC, BMP 10/16/18 05:15 10/16/18 05:15 INR, PTT INR 1.54 (0.83-1.09) H 10/16/18 05:15 Troponin, BNP 10/15/18 10/15/18 11:13 17:30 Troponin I 0.17 H 0.15 H B-Natriuretic Peptide 9722.7 H Troponin, BNP 10/15/18 10/15/18 11:13 17:30 Troponin I 0.17 H 0.15 H B-Natriuretic Peptide 9722.7 H Rapid afib 135->90s Ejection Fraction %: LVEF > or = 40 % Imaging - Results Chest X-ray: Report Reviewed (COPD, right base ATX) Problem List - Problems (1) COPD (chronic obstructive pulmonary disease) Code(s): J44.9 - CHRONIC OBSTRUCTIVE PULMONARY DISEASE, UNSPECIFIED Qualifiers: COPD type: unspecified COPD Qualified Code(s): J44.9 - Chronic obstructive pulmonary disease, unspecified (2) Chest pain Code(s): R07.9 - CHEST PAIN, UNSPECIFIED Qualifiers: Chest pain type: precordial pain Qualified Code(s): R07.2 - Precordial pain (3) Atrial fibrillation with rapid ventricular response Code(s): I48.91 - UNSPECIFIED ATRIAL FIBRILLATION (4) CHF (congestive heart failure) Code(s): I50.9 - HEART FAILURE, UNSPECIFIED (5) Methadone dependence Code(s): F11.20 - OPIOID DEPENDENCE, UNCOMPLICATED (6) PAD (peripheral artery disease) Code(s): I73.9 - PERIPHERAL VASCULAR DISEASE, UNSPECIFIED (7) S/P aorto-bifemoral bypass surgery Code(s): Z95.828 - PRESENCE OF OTHER VASCULAR IMPLANTS AND GRAFTS Assessment/Plan Echo 12/14 normal EF, moderate MR 1. Acute on chronic diastolic heart failure and subendocardial ischemic injury in context of 2. Paroxysmal atrial fibrillation with RVR on Xarelto 4, PAD s/p aorto-bifem bypass 5. History of Opioid dependence currently on Methadone treatment 6. COPD on home O2 2L 7. Type 2 DM 8. MADELAINE referable to #1 resolving 9. Chest pain syndrome r/o ischemia PLAN: 1. Trend trops to document peak 2. Continue Metoprolol 50 bid and Xarelto 20 qd, IV Cardizem as needed for additional rate-control 3. Resume Valsartan once renal fxn stabilized 4. IV diuresis with monitor diuretic response, renal function and electrolytes 5. Nuclear stress testing once euvolemic 6. Thank you for consultative opportunity
[2018-10-16] MEDS: METOPROLOL TARTRATE 50 MG TABLET (FP) PO SCH ×2 (10:19→21:28)
[2018-10-16] MEDS: PANTOPRAZOLE 40 MG TABLET (FP) PO SCH (10:19)
[2018-10-16] MEDS: DOCUSATE SODIUM 100 MG CAPSULE (FP) PO SCH ×2 (10:19→21:27)
[2018-10-16] MEDS: RIVAROXABAN 20 MG TABLET PO SCH (10:19)
[2018-10-16] MEDS ORDERED: METHADONE HCL 10 MG TABLET PO SCH (11:15)
[2018-10-16] MEDS ORDERED: METHADONE HCL 40 MG DISPERSABLE TABLET ONE (12:00)
[2018-10-16] MEDS ORDERED: METHADONE HCL 10 MG TABLET ONE (12:00)
[2018-10-16] MEDS: METHADONE 40 MG, METHADONE 30 MG PO SCH (12:01)
[2018-10-16] MEDS: FUROSEMIDE 40 MG/4 ML INJECTABLE VIAL IVPUSH SCH (12:03)
--- NOTE | 2018-10-16 12:43 | EKG ---
Test Reason : Blood Pressure : / mmHG Vent. Rate : 101 BPM Atrial Rate : 468 BPM P-R Int : 000 ms QRS Dur : 072 ms QT Int : 344 ms P-R-T Axes : 000 057 -37 degrees QTc Int : 446 ms ATRIAL FIBRILLATION WITH RAPID VENTRICULAR RESPONSE ABNORMAL ECG WHEN COMPARED WITH ECG OF 15-OCT-2018 11:47, NONSPECIFIC T WAVE ABNORMALITY NO LONGER EVIDENT IN LATERAL LEADS PATIENT SITTING UP IN BED DURING EKG POOR DATA QUALITY, INTERPRETATION MAY BE ADVERSELY AFFECTED Confirmed by DAYANARA SMART MD ([id number]) on 10/16/2018 12:42:37 PM Referred By: Stone SARKAR Confirmed By:DAYANARA SMART MD
--- NOTE | 2018-10-16 14:43 | PN ---
Progress Note (short form) - Note Progress Note: SUBJECTIVE: Feeling somewhat improved, still has LE edema. No chest pain/ palpitations. OBJECTIVE: Afebrile, Hemodynamically Stable. Last Vital Signs Temp Pulse Resp BP Pulse Ox 97.7 F 113 H 22 H 137/93 94 L 10/16/18 08:12 10/16/18 08:12 10/16/18 08:22 10/16/18 08:12 10/16/18 08:22 HEENT - Atraumatic, Normocephalic. Heart - S1, S2, irregular Lungs - decreased air entry bibasally Abdomen - soft, non-tender. Bowel Sounds normal. Extremities - bilateral LE edema++. Laboratory Results - last 24 hr 10/15/18 10/15/18 10/15/18 11:13 16:38 17:30 WBC RBC Hgb Hct MCV MCH MCHC RDW Plt Count MPV Absolute Neuts (auto) Neutrophils % Neutrophils % (Manual) 94.0 H Band Neutrophils % 4.0 Lymphocytes % Lymphocytes % (Manual) 2.0 L Monocytes % Eosinophils % Basophils % Nucleated RBC % Platelet Estimate Adequate Platelet Comment No clumping noted PT with INR INR Sodium Potassium Chloride Carbon Dioxide Anion Gap BUN Creatinine Creat Clearance w eGFR POC Glucometer 119 Random Glucose Calcium Phosphorus Magnesium Total Bilirubin AST ALT Alkaline Phosphatase Creatine Kinase 62 Troponin I 0.15 H Total Protein Albumin Urine Color Urine Appearance Urine pH Ur Specific [place] Urine Protein Urine Glucose (UA) Urine Ketones Urine Blood Urine Nitrite Urine Bilirubin Urine Urobilinogen Ur Leukocyte Esterase 10/15/18 10/15/18 10/16/18 17:33 21:05 05:15 WBC 17.3 H RBC 4.30 Hgb 13.5 Hct 40.3 MCV 93.8 MCH 31.3 MCHC 33.4 RDW 15.7 Plt Count 162 MPV 10.7 Absolute Neuts (auto) 13.7 H Neutrophils % 79.2 Neutrophils % (Manual) Band Neutrophils % Lymphocytes % 11.5 D Lymphocytes % (Manual) Monocytes % 9.1 D Eosinophils % 0.1 D Basophils % 0.1 Nucleated RBC % 0 Platelet Estimate Platelet Comment PT with INR INR Sodium Potassium Chloride Carbon Dioxide Anion Gap BUN Creatinine Creat Clearance w eGFR POC Glucometer 118 Random Glucose Calcium Phosphorus Magnesium Total Bilirubin AST ALT Alkaline Phosphatase Creatine Kinase Troponin I Total Protein Albumin Urine Color Yellow Urine Appearance Clear Urine pH 5.0 Ur Specific [place] 1.026 Urine Protein Negative Urine Glucose (UA) Negative Urine Ketones Negative Urine Blood Negative Urine Nitrite Negative Urine Bilirubin Negative Urine Urobilinogen Negative Ur Leukocyte Esterase Negative 10/16/18 10/16/18 10/16/18 05:15 05:15 06:03 WBC RBC Hgb Hct MCV MCH MCHC RDW Plt Count MPV Absolute Neuts (auto) Neutrophils % Neutrophils % (Manual) Band Neutrophils % Lymphocytes % Lymphocytes % (Manual) Monocytes % Eosinophils % Basophils % Nucleated RBC % Platelet Estimate Platelet Comment PT with INR 18.30 H INR 1.54 H Sodium 141 Potassium 4.3 Chloride 103 Carbon Dioxide 30 Anion Gap 8 BUN 42 H Creatinine 1.2 Creat Clearance w eGFR > 60 POC Glucometer 89 Random Glucose 78 Calcium 9.4 Phosphorus 4.1 Magnesium 2.3 Total Bilirubin 0.4 AST 23 ALT 43 Alkaline Phosphatase 130 H Creatine Kinase Troponin I Total Protein 6.6 Albumin 3.6 Urine Color Urine Appearance Urine pH Ur Specific [place] Urine Protein Urine Glucose (UA) Urine Ketones Urine Blood Urine Nitrite Urine Bilirubin Urine Urobilinogen Ur Leukocyte Esterase 10/16/18 11:55 WBC RBC Hgb Hct MCV MCH MCHC RDW Plt Count MPV Absolute Neuts (auto) Neutrophils % Neutrophils % (Manual) Band Neutrophils % Lymphocytes % Lymphocytes % (Manual) Monocytes % Eosinophils % Basophils % Nucleated RBC % Platelet Estimate Platelet Comment PT with INR INR Sodium Potassium Chloride Carbon Dioxide Anion Gap BUN Creatinine Creat Clearance w eGFR POC Glucometer 173 Random Glucose Calcium Phosphorus Magnesium Total Bilirubin AST ALT Alkaline Phosphatase Creatine Kinase Troponin I Total Protein Albumin Urine Color Urine Appearance Urine pH Ur Specific [place] Urine Protein Urine Glucose (UA) Urine Ketones Urine Blood Urine Nitrite Urine Bilirubin Urine Urobilinogen Ur Leukocyte Esterase Current Medications Generic Name Dose Route Start Last Admin Trade Name Freq PRN Reason Stop Dose Admin Albuterol Sulfate 1 amp 10/15/18 14:57 10/16/18 07:45 Ventolin 0.083% Nebulizer Soln - NEB 1 amp Q4H PRN Administration SHORT OF BREATH/WHEEZING Diltiazem HCl 10 mg 10/16/18 10:38 Cardizem Injection - IVPUSH Q4H PRN TACHYCARDIA Docusate Sodium 100 mg 10/15/18 22:00 10/16/18 10:19 Colace - PO 100 mg BID [facility] Administration Furosemide 40 mg 10/16/18 10:45 10/16/18 12:03 Lasix Injection - IVPUSH 40 mg DAILY [facility] Administration Insulin Aspart 1 vial 10/15/18 16:30 10/16/18 12:01 Novolog Vial Sliding Scale - SQ 2 units ACHS [facility] Administration Protocol Methadone HCl 40 mg/ Methadone 70 mg 10/16/18 12:00 10/16/18 12:01 HCl 30 mg PO 70 mg DAILY@0600 [facility] Administration Metoprolol Tartrate 50 mg 10/15/18 22:00 10/16/18 10:19 Lopressor - PO 50 mg BID [facility] Administration Miscellaneous 1 each 10/16/18 18:30 Lidoderm Patch Removal MC 10/16/18 18:31 ONCE ONE Pantoprazole Sodium 40 mg 10/15/18 19:15 10/16/18 10:19 Protonix - PO 40 mg DAILY [facility] Administration Rivaroxaban 20 mg 10/15/18 15:30 10/16/18 10:19 Xarelto - PO 20 mg DAILY [facility] Administration Senna 2 tab 10/15/18 22:00 10/15/18 21:08 Senna - PO 2 tab HS [facility] Administration ASSESSMENT/PLAN: 63 year old male with history of Atrial Fibrillation (on Xarelto), HTN, CRF sec to COPD (on 2L O2), HLD, Chronic Diastolic CHF, DM 2, PAD s/p Aorto-biferal bypass, presents with 1 week history of increasing SOB, worse on exertion, cough productive of clear sputum, and intermittent substernal burning, not related to food intake or activity. No hemoptysis/fever/chills. No abdominal pain/nausea/vomiting. He also reports worsening bilateral LE edema over several weeks. 1. Atrial Fibrillation with RVR with Acute on Chronic Diastolic CHF - rate now controlled s/p IV and PO cardizem Troponin max 0.17, down to 0.15, with atypical chest discomfort on presentation. Currently pain free. Troponin egression likely sec to demand ECG - no acute changes. Continue Metoprolol and Xarelto. BNP elevated at 9722, last Echo 12/14 normal EF, moderate MR. Evaluated by Cardiology and started on Lasix IV diuresis. Cardiology recommends NM Stress test once adequately diuresed. 2. MADELAINE - unclear etiology - resolved. Creat 1.6 ---> 1.2. Renal US - normal. Will monitor renal function in response to IV lasix diuresis. 3. Atypical Chest pain, burning in nature, likely GERD Started on PPI 4. HTN - Continue Metoprolol and Valsartan. 5. Chronic opioid dependence - on Methadone. 6. DM 2 - Metformin held. Will maintain on sliding scale Novolog. 7. Chronic Respiratory Failure sec to COPD - Stable - no evidence of exacerbation. O2. Albuterol prn. DVT Px - on Xarelto Visit type - Emergency Visit Emergency Visit: Yes ED Registration Date: 10/15/18 Care time: The patient presented to the Emergency Department on the above date and was hospitalized for further evaluation of their emergent condition. - New Patient This patient is new to me today: No - Critical Care Critical Care patient: No - Discharge Referral Referred to [facility] Med [facility].: No
[2018-10-16] MEDS ORDERED: LIDOCAINE PATCH REMOVAL MC ONE (18:30)
[2018-10-16] MEDS: dilTIAZem HCL 50 MG/10 ML - 10 ML VIAL IVPUSH PRN (18:35)
[2018-10-16] MEDS: SENNOSIDES 8.6MG TABLET (FP) PO SCH (21:28)
[2018-10-16] MEDS ORDERED: VALSARTAN 160 MG TABLET (UD) PO SCH (22:00)
[2018-10-16] MEDS ORDERED: PATIENT'S OWN MEDICATION (NON-FORMULARY) (Valsartan [Valsartan] 320 MG) PO SCH (22:00)
[2018-10-17] MEDS ORDERED: METHADONE HCL 40 MG DISPERSABLE TABLET ONE (05:08)
[2018-10-17] MEDS ORDERED: METHADONE HCL 10 MG TABLET ONE (05:09)
[2018-10-17] MEDS: METHADONE 40 MG, METHADONE 30 MG PO SCH (05:25)
[2018-10-17] MEDS: INSULIN SLIDING SCALE (NOVOLOG) 1 VIAL SQ SCH ×3 (06:26→16:38)
[2018-10-17 07:36] LABS: BASO % 0.3 % (0-2.0); EOS % 1.3 % (0-4.5); HEMATOCRIT 38.8 % (35.4-49); HEMOGLOBIN 12.8 GM/dL (11.7-16.9); LYMPH % 15.1 % (8-40); MCH 30.5 pg (25.7-33.7); MCHC 32.9 g/dl (32.0-35.9); MEAN CELL VOLUME 92.6 fl (80-96); MEAN PLT VOLUME 10.9 fl (7.5-11.1); MONO % 10.9 % (3.8-10.2); NEUT % 72.4 % (42.8-82.8); PLATELET COUNT 149 K/MM3 (134-434); RBC 4.19 M/mm3 (4.00-5.60); RDW 15.3 % (11.9-15.9); WHITE BLOOD COUNT 10.4 K/mm3 (4.0-10.0)
--- NOTE | 2018-10-17 07:39 | PN ---
Physical Exam: SUBJECTIVE: Patient seen and examined overnight HR to 150's-160's / no complaints offered - medicated with cardizem 10mg IVP, now ctl 90-100s OBJECTIVE: Vital Signs Period Temp Pulse Resp BP Sys/Chatterjee Pulse Ox Last 24 Hr 97.5 F-98.1 F 60-113 15-22 127-153/75-93 94-96 GENERAL: The patient is awake, alert, and fully oriented, in no acute distress. HEAD: Normal with no signs of trauma. EYES: PERRL, extraocular movements intact, sclera anicteric, conjunctiva clear. No ptosis. ENT: Ears normal, nares patent, oropharynx clear without exudates, moist mucous membranes. NECK: Trachea midline, full range of motion, supple. LUNGS: Breath sounds equal, clear to auscultation bilaterally, no wheezes, no crackles, no accessory muscle use. HEART: Regular rate and rhythm, S1, S2 without murmur, rub or gallop. ABDOMEN: Soft, nontender, nondistended, normoactive bowel sounds, no guarding, no rebound, no hepatosplenomegaly, no masses. EXTREMITIES: 2+ pulses, warm, well-perfused, no edema. NEUROLOGICAL: Cranial nerves II through XII grossly intact. Normal speech, gait not observed. PSYCH: Normal mood, normal affect. SKIN: Warm, dry, normal turgor, no rashes or lesions noted Laboratory Results - last 24 hr 10/16/18 10/16/18 10/16/18 05:15 05:15 11:55 WBC 17.3 H RBC 4.30 Hgb 13.5 Hct 40.3 MCV 93.8 MCH 31.3 MCHC 33.4 RDW 15.7 Plt Count 162 MPV 10.7 Absolute Neuts (auto) 13.7 H Neutrophils % 79.2 Lymphocytes % 11.5 D Monocytes % 9.1 D Eosinophils % 0.1 D Basophils % 0.1 Nucleated RBC % 0 Sodium 141 Potassium 4.3 Chloride 103 Carbon Dioxide 30 Anion Gap 8 BUN 42 H Creatinine 1.2 Creat Clearance w eGFR > 60 POC Glucometer 173 Random Glucose 78 Calcium 9.4 Phosphorus 4.1 Magnesium 2.3 Total Bilirubin 0.4 AST 23 ALT 43 Alkaline Phosphatase 130 H Total Protein 6.6 Albumin 3.6 10/16/18 10/16/18 10/17/18 16:43 21:26 05:37 WBC RBC Hgb Hct MCV MCH MCHC RDW Plt Count MPV Absolute Neuts (auto) Neutrophils % Lymphocytes % Monocytes % Eosinophils % Basophils % Nucleated RBC % Sodium Potassium Chloride Carbon Dioxide Anion Gap BUN Creatinine Creat Clearance w eGFR POC Glucometer 144 165 161 Random Glucose Calcium Phosphorus Magnesium Total Bilirubin AST ALT Alkaline Phosphatase Total Protein Albumin Active Medications Generic Name Dose Route Start Last Admin Trade Name Freq PRN Reason Stop Dose Admin Albuterol Sulfate 1 amp 10/15/18 14:57 10/16/18 07:45 Ventolin 0.083% Nebulizer Soln - NEB 1 amp Q4H PRN Administration SHORT OF BREATH/WHEEZING Diltiazem HCl 10 mg 10/16/18 10:38 10/16/18 18:35 Cardizem Injection - IVPUSH 10 mg Q4H PRN Administration TACHYCARDIA Docusate Sodium 100 mg 10/15/18 22:00 10/16/18 21:27 Colace - PO 100 mg BID [facility] Administration Furosemide 40 mg 10/16/18 10:45 10/16/18 12:03 Lasix Injection - IVPUSH 40 mg DAILY [facility] Administration Insulin Aspart 1 vial 10/15/18 16:30 10/17/18 06:26 Novolog Vial Sliding Scale - SQ 2 units ACHS [facility] Administration Protocol Methadone HCl 40 mg/ Methadone 70 mg 10/16/18 12:00 10/17/18 05:25 HCl 30 mg PO 70 mg DAILY@0600 [facility] Administration Metoprolol Tartrate 50 mg 10/15/18 22:00 10/16/18 21:28 Lopressor - PO 50 mg BID [facility] Administration Pantoprazole Sodium 40 mg 10/15/18 19:15 10/16/18 10:19 Protonix - PO 40 mg DAILY [facility] Administration Rivaroxaban 20 mg 10/15/18 15:30 10/16/18 10:19 Xarelto - PO 20 mg DAILY [facility] Administration Senna 2 tab 10/15/18 22:00 10/16/18 21:28 Senna - PO 2 tab HS [facility] Administration Valsartan 320 mg 10/16/18 22:00 10/16/18 21:27 Diovan - PO 320 mg HS [facility] Administration ASSESSMENT/PLAN:
[2018-10-17 08:00] LABS: ANION GAP 6 MMOL/L (8-16); BLOOD UREA NITROGEN 41 mg/dL (7-18); CALCIUM 8.7 mg/dL (8.5-10.1); CHLORIDE 100 mmol/L (98-107); CO2 34 mmol/L (21-32); CREATININE 1.4 mg/dL (0.55-1.3); GLUCOSE,RANDOM 121 mg/dL (74-106); POTASSIUM 4.3 mmol/L (3.5-5.1); SODIUM 140 mmol/L (136-145)
[2018-10-17 08:36] VITALS: TEMP 97.8
[2018-10-17] MEDS: FUROSEMIDE 40 MG/4 ML INJECTABLE VIAL IVPUSH SCH (09:32)
[2018-10-17] MEDS: DOCUSATE SODIUM 100 MG CAPSULE (FP) PO SCH (09:32)
[2018-10-17] MEDS: RIVAROXABAN 20 MG TABLET PO SCH (09:32)
[2018-10-17] MEDS: PANTOPRAZOLE 40 MG TABLET (FP) PO SCH (09:32)
[2018-10-17] MEDS: METOPROLOL TARTRATE 50 MG TABLET (FP) PO SCH (09:32)
--- NOTE | 2018-10-17 11:33 | PN ---
Progress Note, Physician History of Present Illness: Shortness of breath on exertion, substernal chest burning, LE edema bilaterally and productive cough resolving with diuresis. - Current Medication List Current Medications: Active Medications Albuterol Sulfate (Ventolin 0.083% Nebulizer Soln -) 1 amp NEB Q4H PRN PRN Reason: SHORT OF BREATH/WHEEZING Last Admin: 10/16/18 07:45 Dose: 1 amp Diltiazem HCl (Cardizem Injection -) 10 mg IVPUSH Q4H PRN PRN Reason: TACHYCARDIA Last Admin: 10/16/18 18:35 Dose: 10 mg Docusate Sodium (Colace -) 100 mg PO BID [facility] Last Admin: 10/17/18 09:32 Dose: 100 mg Furosemide (Lasix Injection -) 40 mg IVPUSH DAILY [facility] Last Admin: 10/17/18 09:32 Dose: 40 mg Insulin Aspart (Novolog Vial Sliding Scale -) 1 vial SQ [facility]; Protocol Last Admin: 10/17/18 11:28 Dose: 2 units Methadone HCl 40 mg/ Methadone (HCl 30 mg) 70 mg PO DAILY@0600 [facility] Last Admin: 10/17/18 05:25 Dose: 70 mg Metoprolol Tartrate (Lopressor -) 50 mg PO BID [facility] Last Admin: 10/17/18 09:32 Dose: 50 mg Pantoprazole Sodium (Protonix -) 40 mg PO DAILY [facility] Last Admin: 10/17/18 09:32 Dose: 40 mg Rivaroxaban (Xarelto -) 20 mg PO DAILY [facility] Last Admin: 10/17/18 09:32 Dose: 20 mg Senna (Senna -) 2 tab PO [facility] Last Admin: 10/16/18 21:28 Dose: 2 tab Valsartan (Diovan -) 320 mg PO [facility] Last Admin: 10/16/18 21:27 Dose: 320 mg - Objective Vital Signs: Vital Signs Temperature 97.8 F 10/17/18 08:33 Pulse Rate 107 H 10/17/18 11:05 Respiratory Rate 17 10/17/18 08:33 Blood Pressure 121/73 10/17/18 08:33 O2 Sat by Pulse Oximetry (%) 97 10/17/18 08:28 Constitutional: Yes: No Distress, Calm Neck: Yes: Supple Cardiovascular: Yes: Regular Rate and Rhythm Respiratory: Yes: Regular, Diminished, On Nasal O2 Gastrointestinal: Yes: Normal Bowel Sounds, Soft Edema: Yes Edema: LLE: 1+, RLE: 1+ Integumentary: Yes: Venous Stasis Changes Labs: CBC, BMP 10/17/18 05:25 10/17/18 05:25 INR, PTT INR 1.54 (0.83-1.09) H 10/16/18 05:15 - ....Imaging EKG: Report Reviewed (Tele: PAF->SR) Problem List - Problems (1) COPD (chronic obstructive pulmonary disease) Code(s): J44.9 - CHRONIC OBSTRUCTIVE PULMONARY DISEASE, UNSPECIFIED Qualifiers: COPD type: unspecified COPD Qualified Code(s): J44.9 - Chronic obstructive pulmonary disease, unspecified (2) Chest pain Code(s): R07.9 - CHEST PAIN, UNSPECIFIED Qualifiers: Chest pain type: precordial pain Qualified Code(s): R07.2 - Precordial pain (3) Atrial fibrillation with rapid ventricular response Code(s): I48.91 - UNSPECIFIED ATRIAL FIBRILLATION (4) CHF (congestive heart failure) Code(s): I50.9 - HEART FAILURE, UNSPECIFIED (5) Methadone dependence Code(s): F11.20 - OPIOID DEPENDENCE, UNCOMPLICATED (6) PAD (peripheral artery disease) Code(s): I73.9 - PERIPHERAL VASCULAR DISEASE, UNSPECIFIED (7) S/P aorto-bifemoral bypass surgery Code(s): Z95.828 - PRESENCE OF OTHER VASCULAR IMPLANTS AND GRAFTS Assessment/Plan Echo 12/14 normal EF, moderate MR 1. Acute on chronic diastolic heart failure and subendocardial ischemic injury in context of 2. Paroxysmal atrial fibrillation with RVR on Xarelto 4, PAD s/p aorto-bifem bypass 5. History of Opioid dependence currently on Methadone treatment 6. COPD on home O2 2L 7. Type 2 DM 8. MADELAINE referable to #1 resolving 9. Chest pain syndrome r/o ischemia PLAN: 1. Trops are downtrending 2. Continue Metoprolol 50 bid, Diovan 320 qd and Xarelto 20 qd, IV Cardizem as needed for additional rate-control 3. Change to oral diuresis with monitor diuretic response, renal function and electrolytes 4. Nuclear stress testing once euvolemic, may be performed as outpatient in office
--- NOTE | 2018-10-17 13:55 | PN ---
Teaching Attending Note Name of Resident: Iam Argueta ATTENDING PHYSICIAN STATEMENT I saw and evaluated the patient. I reviewed the resident's note and discussed the case with the resident. I agree with the resident's findings and plan as documented. SUBJECTIVE: Feeling some improvement, less SOB, still has LE edema. No chest pain/palpitations. OBJECTIVE: Afebrile, Hemodynamically Stable. Last Vital Signs Temp Pulse Resp BP Pulse Ox 97.8 F 116 H 17 121/73 97 10/17/18 08:33 10/17/18 12:43 10/17/18 08:33 10/17/18 08:33 10/17/18 08:28 HEENT - Atraumatic, Normocephalic. Heart - S1, S2, irregular Lungs - decreased air entry bibasally Abdomen - soft, non-tender. Bowel Sounds normal. Extremities - bilateral tense LE edema++. Laboratory Results - last 24 hr 10/16/18 10/16/18 10/17/18 16:43 21:26 05:25 WBC RBC Hgb Hct MCV MCH MCHC RDW Plt Count MPV Absolute Neuts (auto) Neutrophils % Lymphocytes % Monocytes % Eosinophils % Basophils % Nucleated RBC % Sodium 140 Potassium 4.3 Chloride 100 Carbon Dioxide 34 H Anion Gap 6 L BUN 41 H Creatinine 1.4 H Creat Clearance w eGFR 51.18 POC Glucometer 144 165 Random Glucose 121 H Calcium 8.7 10/17/18 10/17/18 10/17/18 05:25 05:37 11:10 WBC 10.4 H RBC 4.19 Hgb 12.8 Hct 38.8 MCV 92.6 MCH 30.5 MCHC 32.9 RDW 15.3 Plt Count 149 MPV 10.9 Absolute Neuts (auto) 7.6 Neutrophils % 72.4 Lymphocytes % 15.1 D Monocytes % 10.9 H Eosinophils % 1.3 D Basophils % 0.3 Nucleated RBC % 0 Sodium Potassium Chloride Carbon Dioxide Anion Gap BUN Creatinine Creat Clearance w eGFR POC Glucometer 161 184 Random Glucose Calcium Current Medications Generic Name Dose Route Start Last Admin Trade Name Freq PRN Reason Stop Dose Admin Albuterol Sulfate 1 amp 10/15/18 14:57 10/16/18 07:45 Ventolin 0.083% Nebulizer Soln - NEB 1 amp Q4H PRN Administration SHORT OF BREATH/WHEEZING Diltiazem HCl 10 mg 10/16/18 10:38 10/16/18 18:35 Cardizem Injection - IVPUSH 10 mg Q4H PRN Administration TACHYCARDIA Docusate Sodium 100 mg 10/15/18 22:00 10/17/18 09:32 Colace - PO 100 mg BID [facility] Administration Furosemide 20 mg 10/18/18 10:00 Lasix - PO DAILY [facility] Insulin Aspart 1 vial 10/15/18 16:30 10/17/18 11:28 Novolog Vial Sliding Scale - SQ 2 units ACHS [facility] Administration Protocol Methadone HCl 40 mg/ Methadone 70 mg 10/16/18 12:00 10/17/18 05:25 HCl 30 mg PO 70 mg DAILY@0600 [facility] Administration Metoprolol Tartrate 50 mg 10/15/18 22:00 10/17/18 09:32 Lopressor - PO 50 mg BID [facility] Administration Pantoprazole Sodium 40 mg 10/15/18 19:15 10/17/18 09:32 Protonix - PO 40 mg DAILY [facility] Administration Rivaroxaban 20 mg 10/15/18 15:30 10/17/18 09:32 Xarelto - PO 20 mg DAILY [facility] Administration Senna 2 tab 10/15/18 22:00 10/16/18 21:28 Senna - PO 2 tab HS [facility] Administration Valsartan 320 mg 10/16/18 22:00 10/16/18 21:27 Diovan - PO 320 mg HS [facility] Administration ASSESSMENT/PLAN: 63 year old male with history of Atrial Fibrillation (on Xarelto), HTN, CRF sec to COPD (on 2L O2), HLD, Chronic Diastolic CHF, DM 2, PAD s/p Aorto-biferal bypass, presents with 1 week history of increasing SOB, worse on exertion, cough productive of clear sputum, and intermittent substernal burning, not related to food intake or activity. No hemoptysis/fever/chills. No abdominal pain/nausea/vomiting. He also reports worsening bilateral LE edema over several weeks. 1. Atrial Fibrillation with RVR with Acute on Chronic Diastolic CHF - rate now controlled. Troponin max 0.17, down to 0.15, with atypical chest discomfort on presentation. Currently pain free. Troponin egression likely sec to demand ischemia ECG - no acute changes. Continue Metoprolol and Xarelto. BNP elevated at 9722, last Echo 12/14 normal EF, moderate MR. Evaluated by Cardiology and started on Lasix IV diuresis, now transitioned to oral Lasix. Cardiology recommends NM Stress test once adequately diuresed as an out-patient Medically stable for discharge on oral Lasix and Cardiology follow up this week with repeat labs. 2. MADELAINE - unclear etiology - resolving. Renal US - normal. 3. Atypical Chest pain, burning in nature, likely GERD Started on PPI 4. HTN - Continue Metoprolol and Valsartan. 5. Chronic opioid dependence - on Methadone. 6. DM 2 - Metformin held. Will maintain on sliding scale Novolog. 7. Chronic Respiratory Failure sec to COPD - Stable - no evidence of exacerbation. O2 via NC at 2L. Albuterol prn. DVT Px - on Xarelto
[2018-10-17] MEDS: dilTIAZem HCL 50 MG/10 ML - 10 ML VIAL IVPUSH PRN (13:57)
[2018-10-17 14:20] VITALS: BP 127/82; PULSE 62
--- NOTE | 2018-10-17 14:49 | DS ---
Physical Exam: SUBJECTIVE: Patient seen and examined at bedside. overnight HR to 150's-160's / no complaints offered - medicated with cardizem 10mg IVP, now ctl 90-100s. pt feels well and no complaints. breathing improved. denies fever, chills, cp, sob , n/v/d, urainry sxs OBJECTIVE: Vital Signs Period Temp Pulse Resp BP Sys/Chatterjee Pulse Ox Last 24 Hr 97.5 F-98.1 F 60-116 16-21 121-153/73-93 96-97 PHYSICAL EXAM GENERAL: The patient is awake, alert, and fully oriented, in no acute distress. HEAD: Normal with no signs of trauma. EYES: PERRL, extraocular movements intact, sclera anicteric, conjunctiva clear. ENT: Ears normal, nares patent, oropharynx clear without exudates, moist mucous membranes. NECK: Trachea midline, full range of motion, supple. LUNGS: mild crackles at bases b/l, improved from admission HEART: Regular rate and rhythm, S1, S2 without murmur, rub or gallop. ABDOMEN: Soft, nontender, nondistended, normoactive bowel sounds, no guarding, no rebound, no hepatosplenomegaly, no masses. EXTREMITIES: 2+ pulses, warm, well-perfused. 1-2+ edema,improved from admission NEUROLOGICAL: Cranial nerves II through XII grossly intact. Normal speech, gait not observed. PSYCH: Normal mood, normal affect. SKIN: Warm, dry, normal turgor, no rashes or lesions noted. LABS Laboratory Results - last 24 hr 10/16/18 10/16/18 10/17/18 16:43 21:26 05:25 WBC RBC Hgb Hct MCV MCH MCHC RDW Plt Count MPV Absolute Neuts (auto) Neutrophils % Lymphocytes % Monocytes % Eosinophils % Basophils % Nucleated RBC % Sodium 140 Potassium 4.3 Chloride 100 Carbon Dioxide 34 H Anion Gap 6 L BUN 41 H Creatinine 1.4 H Creat Clearance w eGFR 51.18 POC Glucometer 144 165 Random Glucose 121 H Calcium 8.7 10/17/18 10/17/18 10/17/18 05:25 05:37 11:10 WBC 10.4 H RBC 4.19 Hgb 12.8 Hct 38.8 MCV 92.6 MCH 30.5 MCHC 32.9 RDW 15.3 Plt Count 149 MPV 10.9 Absolute Neuts (auto) 7.6 Neutrophils % 72.4 Lymphocytes % 15.1 D Monocytes % 10.9 H Eosinophils % 1.3 D Basophils % 0.3 Nucleated RBC % 0 Sodium Potassium Chloride Carbon Dioxide Anion Gap BUN Creatinine Creat Clearance w eGFR POC Glucometer 161 184 Random Glucose Calcium HOSPITAL COURSE: Date of Admission:10/15/18 Date of Discharge: 10/17/18 63 yo M w/ PMH Atrial Fibrillation (on Xarelto), HTN, CRF 2/2 COPD (on 2L O2), HLD, Chronic Diastolic CHF, DM 2, PAD s/p Aorto-biferal bypass, p/w 1 week history of increasing SOB, worse on exertion, cough productive of clear sputum, and intermittent substernal burning, not related to food intake or activity and reports worsening bilateral LE edema over several weeks. Admitted w/ Acute on chronic diastolic heart failure and ?subendocardial ischemic injury? (seen on initial EKG) in context of Paroxysmal atrial fibrillation with RVR (on Xarelto). Elevated troponin was noted 0.17 and downtrended to 0.15, Troponin egression likely 2/2 demand ischemia. BNP elevated at 9722, last Echo 12/14 normal EF, moderate MR. Cardiology consulted and started on Lasix IV, now transitioned to oral Lasix 20mg PO. Cardiology recommends NM Stress test once adequately diuresed as an out-patient. Pt will f/ u w/w Dr. Burns in 1 week ( .). Pt Afib was ctl w/ Metoprolol 50 bid and Xarelto 20 qd and IV Cardizem prn Of note, pt w/ MADELAINE likely 2/2 HF, Renal US - normal. and Cr improved w/ diuresis 1.6 to 1.4 Of note, pt w/ Atypical Chest pain, burning in nature, likely GERD. pt tx w/ protonix. dc w/ protonix 40mg qd for 2 wks and told to f/u /w PCP or have pcp to refer to a GI. pt stable and ready for dc. Minutes to complete discharge: 40 Discharge Summary Reason For Visit: SOB,COPD,RAPID A-FIB, CHEST PAIN Current Active Problems Atrial fibrillation, rapid (Acute) COPD (chronic obstructive pulmonary disease) (Acute) Chest pain (Acute) Non-ST elevation myocardial infarction (NSTEMI) (Acute) Shortness of breath (Acute) Condition: Stable - Instructions Diet, Activity, Other Instructions: you came in with shortness of breath and were found to have fluid in your lungs and an irregular heart (atrial fibrilation). we gave you medications to slow your heart rate and we gave you a water pill called lasix to remove the fluid, and your symptoms improved. Your electrical activity of the heart (EKG) was abnormal. Please follow up with watch engine operator Dr. Burns in 1 week for a nuclear stress test to asses the electrical activity and function of the heart. Please continue your home meds Please eat a low salt diet. Please measure your daily weight New Meds: We are starting you on a new med called lasix. Please take 20mg lasix daily to help remove fluid until you follow up with watch engine operator Dr. Burns in 1 week. You were experiencing some chest discomfort from esophageal reflux/"heart burn" . Please take 40mg of protonix/pantoprazole daily for 2 weeks and follow up with your PCP or have your PCP refer you to a [employer] Please follow up with your primary care physician in 1 week. Please follow up with watch engine operator Dr. Burns in 1 week.... office . If you experience any shortness of breath, worsening leg edema/bloating, increase in weight (more than 1-2 lbs in 24 hours), chest pain, fevers, chills, nausea, vomit, diarrhea, please call 911 or go the ER Referrals: Mary Stiles MD [Primary Care Provider] - 1 Week Lei Burns MD [Staff Physician] - 1 Week Disposition: HOME - Home Medications Comprehensive Discharge Medication List: Ambulatory Orders Methadone [Dolophine -] 70 mg PO DAILY 09/25/17 Metoprolol Tartrate [Lopressor -] 50 mg PO BID 09/25/17 Rivaroxaban [Xarelto -] 20 mg PO DAILY 09/25/17 Valsartan 320 mg PO HS 09/25/17 metFORMIN HCL [Glucophage -] 500 mg PO BID 09/25/17 Albuterol Sulfate Inhaler - [Ventolin HFA Inhaler -] 1 - 2 inh PO QID PRN #1 inhaler 01/26/18 Furosemide [Lasix -] 20 mg PO DAILY 30 Days #30 tablet 10/17/18 Pantoprazole Sodium [Protonix -] 40 mg PO DAILY 15 Days #15 tablet.ec 10/17/18 This patient is new to me today: Yes Date on this admission: 10/17/18 Emergency Visit: Yes ED Registration Date: 10/15/18 Care time: The patient presented to the Emergency Department on the above date and was hospitalized for further evaluation of their emergent condition. Critical Care patient: No - Discharge Referral Referred to [facility] No
[2018-10-18] MEDS ORDERED: FUROSEMIDE 20 MG TABLET (FP) PO SCH (10:00)
== END 2018-10-17 17:30 | disposition home or self-care (01) | DRG 201 ==
LOC: JER 10:31 → JERBED 13:17 → J4W 15:34
PROC: 3E0F7GC Introduction of Other Therapeutic Substance into Respiratory Tract, Via Natural or Artificial Opening (ICD-10-PCS; principal; 2018-10-15)
PROC: HZ91ZZZ Pharmacotherapy for Substance Abuse Treatment, Methadone Maintenance (ICD-10-PCS; 2018-10-16)
DX: I48.0 Paroxysmal atrial fibrillation (principal); I50.33 Acute on chronic diastolic (congestive) heart failure; N17.9 Acute kidney failure, unspecified; J18.9 Pneumonia, unspecified organism; J96.10 Chronic respiratory failure, unspecified whether with hypoxia or hypercapnia; Z99.81 Dependence on supplemental oxygen; I13.0 Hypertensive heart and chronic kidney disease with heart failure and stage 1 through stage 4 chronic kidney disease, or unspecified chronic kidney disease; E11.22 Type 2 diabetes mellitus with diabetic chronic kidney disease; F11.20 Opioid dependence, uncomplicated; N18.9 Chronic kidney disease, unspecified; J44.9 Chronic obstructive pulmonary disease, unspecified; I48.92 Unspecified atrial flutter; Z87.891 Personal history of nicotine dependence; Z79.84 Long term (current) use of oral hypoglycemic drugs; I73.9 Peripheral vascular disease, unspecified; K59.00 Constipation, unspecified; K21.9 Gastro-esophageal reflux disease without esophagitis; F32.9 Major depressive disorder, single episode, unspecified
CPT/HCPCS: 36415; 71046-TC-FY; 71101-TC-RT-FY; 76775-TC; 80048; 80053; 81003; 82550; 82962; 83735; 83880; 84100; 84484; 85025; 85610; 87040; 93005; 93010; 94640; 99284-25; J0131

== ENCOUNTER 2018-11-11 11:07 | Inpatient (IN) | payer OTHER ==
[2018-11-11] MEDS ORDERED: dilTIAZem HCL 50 MG/10 ML - 10 ML VIAL ONE (12:11)
[2018-11-11] MEDS ORDERED: dilTIAZem HCL 50 MG/10 ML - 10 ML VIAL IVPUSH ONE (12:12)
--- NOTE | 2018-11-11 12:17 | PDOC ---
History of Present Illness - General Chief Complaint: Shortness of Breath Stated Complaint: SHORTNESS OF BREATH Time Seen by Provider: 11/11/18 11:53 History Source: Patient Exam Limitations: No Limitations - History of Present Illness Initial Comments: 11/11/18 14:04 63 yo M with a hx of afib (last admit was for afib with RVR), COPD (on 2 L of home O2), CHF (diastolic with moderate MR), and DM presents to the emergency department Past History - Past Medical History Allergies/Adverse Reactions: Allergies Allergy/AdvReac Type Severity Reaction Status Date / Time Penicillins Allergy Verified 11/11/18 11:44 Home Medications: Ambulatory Orders Methadone [Dolophine -] 70 mg PO DAILY 09/25/17 Metoprolol Tartrate [Lopressor -] 50 mg PO BID 09/25/17 Rivaroxaban [Xarelto -] 20 mg PO DAILY 09/25/17 Valsartan 320 mg PO HS 09/25/17 metFORMIN HCL [Glucophage -] 500 mg PO BID 09/25/17 Albuterol Sulfate Inhaler - [Ventolin HFA Inhaler -] 1 - 2 inh PO QID PRN #1 inhaler 01/26/18 Furosemide [Lasix -] 20 mg PO DAILY 30 Days #30 tablet 10/17/18 Pantoprazole Sodium [Protonix -] 40 mg PO DAILY 15 Days #15 tablet.ec 10/17/18 Cardiac Disorders: Yes (CHF o2 dependent) COPD: Yes CHF: Yes Diabetes: Yes HTN: Yes Hypercholesterolemia: Yes - Surgical History Abdominal Surgery: Yes (AAA repair) Cardiac Surgery: Yes - Suicide/Smoking/Psychosocial Hx Smoking History: Former smoker Have you smoked in the past 12 months: No Number of Cigarettes Smoked Daily: 10 If you are a former smoker, when did you quit?: 2 years Information on smoking cessation initiated: No Hx Alcohol Use: No Drug/Substance Use Hx: No Substance Use Type: None Hx Substance Use Treatment: No *Physical Exam - Vital Signs Last Vital Signs Temp Pulse Resp BP Pulse Ox 98.5 F 117 H 22 H 143/113 H 95 11/11/18 11:35 11/11/18 12:00 11/11/18 11:35 11/11/18 11:35 11/11/18 12:00 Moderate Sedation - Procedure Monitoring Vital Signs: Procedure Monitoring Vital Signs Temperature 98.5 F 11/11/18 11:35 Pulse Rate 117 H 11/11/18 12:00 Respiratory Rate 22 H 11/11/18 11:35 Blood Pressure 143/113 H 11/11/18 11:35 O2 Sat by Pulse Oximetry (%) 95 11/11/18 12:00 ED Treatment Course - LABORATORY CBC & Chemistry Diagram: 11/11/18 12:14 11/11/18 12:14 - RADIOLOGY Radiology Studies Ordered: Category Date Time Status CHEST X-RAY PORTABLE* [RAD] Stat Radiology 11/11/18 12:11 Ordered - Medications Given in the ED: ED Medications Discontinued Medications Generic Name Dose Route Start Last Admin Trade Name Freq PRN Reason Stop Dose Admin Diltiazem HCl 10 mg 11/11/18 12:12 11/11/18 12:14 Cardizem Injection - IVPUSH 11/11/18 12:13 10 mg ONCE ONE Administration *DC/Admit/Observation/Transfer Diagnosis at time of Disposition: Atrial fibrillation with rapid ventricular response - Referrals - Patient Instructions - Post Discharge Activity
[2018-11-11 12:22] LABS: BASO % 0.4 % (0-2.0); EOS % 0.2 % (0-4.5); HEMATOCRIT 39.5 % (35.4-49); HEMOGLOBIN 13.1 GM/dL (11.7-16.9); LYMPH % 8.3 % (8-40); MCHC 33.1 g/dl (32.0-35.9); MEAN CELL VOLUME 93.6 fl (80-96); MEAN PLT VOLUME 10.7 fl (7.5-11.1); NEUT % 81.1 % (42.8-82.8); PLATELET COUNT 148 K/MM3 (134-434); RBC 4.22 M/mm3 (4.00-5.60); RDW 15.9 % (11.9-15.9); WHITE BLOOD COUNT 12.2 K/mm3 (4.0-10.0)
[2018-11-11 12:44] LABS: INR 1.56 (0.83-1.09); PROTHROMBIN TIME (PATIENT) 18.5 SEC (9.7-13.0)
[2018-11-11 12:47] LABS: ACTIVATED PTT 31.2 SECONDS (25.2-36.5)
[2018-11-11 13:24] LABS: ALBUMIN 3.6 g/dl (3.4-5.0); CO2 33 mmol/L (21-32)
--- NOTE | 2018-11-11 13:31 | PDOC ---
Attending Attestation - Resident Resident Name: LukeMarito - ED Attending Attestation I have performed the following: I have examined & evaluated the patient, The case was reviewed & discussed with the resident, I agree w/resident's findings & plan, Exceptions are as noted - HPI HPI: 11/11/18 13:26 The patient is a 63 year old male with a history of afib on metoprolol, HTN, COPD on NC O2, HLD, diastolic CHF, DM, on methadone maintenance who presents with shortness of breath and dyspnea on exertion for the past two days. He is also complaining of a nonproductive cough. Patient was admitted for Afib RVR, pneumonia, and COPD in this ED on 10/15. Patient was discharged on 10/17 and was started on lasix 20mg daily. Patient states he has been taking his Xarelto, lasix and metoprolol as prescribed. Patient is a former smoker. Denies any sick contacts. Allergies: Penicillins Surgeries: 2 yrs ago abdominal aortic bypass Social History: quit smoking 2 years ago. Denies alcohol or drug use. - Physicial Exam PE: 11/11/18 13:27 agree with resident exam - Medical Decision Making 11/11/18 13:28 63yo M with MMP presents to the ED with CURRY and non prod cough for 2 days. Pt found to be in AFib with RVR in the ED. DDx includes ACS vs CHF exacerbation vs COPD exac atlhough pt is not wheezing and is moving air well. Pt given diltiazem 10mg with good rate control, HR now btwn 80s-110s Plan to check labs, CXR, anticipate admission given multiple risk factors Heart Score/ECG Review #1 11/11/18 13:31 Twelve-lead EKG was performed and reviewed by me. Atrial fibrillation with rapid ventricular response, rate 138. Normal axis. No ST elevations.
[2018-11-11 13:41] LABS: ALK PHOS 160 U/L (45-117); ANION GAP 4 MMOL/L (8-16); BILIRUBIN,TOTAL 0.6 mg/dL (0.2-1); BLOOD UREA NITROGEN 24 mg/dL (7-18); CHLORIDE 102 mmol/L (98-107); GLUCOSE,RANDOM 135 mg/dL (74-106); POTASSIUM 4.7 mmol/L (3.5-5.1); SGOT/AST 40 U/L (15-37); SGPT/ALT 81 U/L (13-61); SODIUM 139 mmol/L (136-145); TOT PROT 6.7 g/dl (6.4-8.2)
[2018-11-11] MEDS ORDERED: ASPIRIN 81 MG CHEWABLE TABLETS PO ONE (14:23)
[2018-11-11] MEDS ORDERED: ASPIRIN COATED 81 MG TABLET.EC ONE (14:27)
[2018-11-11] MEDS ORDERED: methylPREDNISolone NA SUCC 125 MG/2 ML VIAL IVPUSH ONE (14:53)
[2018-11-11] MEDS ORDERED: IPRATROPIUM BR 0.02% 0.5 MG/2.5 ML VIAL.NEB. NEB ONE ×2 (14:53→14:56)
[2018-11-11] MEDS ORDERED: methylPREDNISolone NA SUCC 125 MG/2 ML VIAL ONE (14:56)
--- NOTE | 2018-11-11 16:00 | PN ---
Teaching Attending Note Name of Resident: Sancho Thao ATTENDING PHYSICIAN STATEMENT I saw and evaluated the patient. I reviewed the resident's note and discussed the case with the resident. I agree with the resident's findings and plan as documented. SUBJECTIVE: The patient is a 63 year old male with PMHx of afib on metoprolol, HTN, COPD on NC O2, HLD, diastolic CHF, DM, on methadone maintenance who presents with shortness of breath and dyspnea on exertion for the past two days. OBJECTIVE: Vital Signs Temperature 98.5 F 11/11/18 11:35 Pulse Rate 60 11/11/18 13:42 Respiratory Rate 20 11/11/18 13:42 Blood Pressure 128/95 11/11/18 12:36 O2 Sat by Pulse Oximetry (%) 98 11/11/18 13:42 GENERAL: Awake, alert, and fully oriented, in no acute distress. HEAD: Normal with no signs of trauma. EYES: Pupils equal, round and reactive to light, extraocular movements intact, sclera anicteric, conjunctiva clear. EARS, NOSE, THROAT: Ears normal, oropharynx clear without exudates. Moist mucous membranes. NECK: Normal range of motion, supple without lymphadenopathy, JVD, or masses. LUNGS: decreased BS bl , positive for wheezing , and no crackles. No accessory muscle use. HEART: Regular rate and rhythm, normal S1 and S2 without murmur, rub or gallop. ABDOMEN: Soft, nontender, not distended, normoactive bowel sounds, no guarding, no rebound, no masses. EXTREMITIES: 2+ pulses, warm, well-perfused. No cyanosis. No clubbing. No peripheral edema. NEUROLOGICAL: Cranial nerves II-XII intact. Normal speech. Normal gait. PSYCHIATRIC: Cooperative. Good eye contact. Appropriate mood and affect. SKIN: Warm, dry, normal turgor, no rashes or lesions noted, normal capillary refill. CBCD WBC 12.2 K/mm3 (4.0-10.0) H 11/11/18 12:14 RBC 4.22 M/mm3 (4.00-5.60) 11/11/18 12:14 Hgb 13.1 GM/dL (11.7-16.9) 11/11/18 12:14 Hct 39.5 % (35.4-49) 11/11/18 12:14 MCV 93.6 fl (80-96) 11/11/18 12:14 MCHC 33.1 g/dl (32.0-35.9) 11/11/18 12:14 RDW 15.9 % (11.9-15.9) 11/11/18 12:14 Plt Count 148 K/MM3 (134-434) 11/11/18 12:14 MPV 10.7 fl (7.5-11.1) 11/11/18 12:14 CMP Sodium 139 mmol/L (136-145) 11/11/18 12:14 Potassium 4.7 mmol/L (3.5-5.1) 11/11/18 12:14 Chloride 102 mmol/L (98-107) 11/11/18 12:14 Carbon Dioxide 33 mmol/L (21-32) H 11/11/18 12:14 Anion Gap 4 MMOL/L (8-16) L 11/11/18 12:14 BUN 24 mg/dL (7-18) H 11/11/18 12:14 Creatinine 1.0 mg/dL (0.55-1.3) 11/11/18 12:14 Creat Clearance w eGFR 75.47 (>60) 11/11/18 12:14 Random Glucose 135 mg/dL (74-106) H 11/11/18 12:14 Calcium 9.0 mg/dL (8.5-10.1) 11/11/18 12:14 Total Bilirubin 0.6 mg/dL (0.2-1) 11/11/18 12:14 AST 40 U/L (15-37) H 11/11/18 12:14 ALT 81 U/L (13-61) H 11/11/18 12:14 Alkaline Phosphatase 160 U/L (45-117) H 11/11/18 12:14 Total Protein 6.7 g/dl (6.4-8.2) 11/11/18 12:14 Albumin 3.6 g/dl (3.4-5.0) 11/11/18 12:14 CARDIAC ENZYMES Creatine Kinase 54 U/L (26-308) 11/11/18 12:14 Troponin I 0.07 ng/ml (0.00-0.05) H 11/11/18 12:14 Current Medications Generic Name Dose Route Start Last Admin Trade Name Freq PRN Reason Stop Dose Admin Albuterol Sulfate 2 puff 11/11/18 16:33 Ventolin Hfa Inhaler - IH Q6H PRN WHEEZING Furosemide 20 mg 11/12/18 10:00 Lasix - PO DAILY [facility]IC Metformin HCl 500 mg 11/12/18 16:45 Glucophage - PO BIDAC [facility]IC Methadone HCl 70 mg 11/12/18 10:00 Dolophine - PO DAILY [facility] Metoprolol Tartrate 50 mg 11/11/18 22:00 Lopressor - PO BID [facility]IC Pantoprazole Sodium 40 mg 11/12/18 10:00 Protonix - PO DAILY [facility]IC Rivaroxaban 20 mg 11/12/18 18:00 Xarelto - PO DAILY@1800 DOM[facility]IC Valsartan 320 mg 11/11/18 22:00 Diovan - PO [facility] Home Medications Medication Instructions Recorded Methadone [Dolophine -] 70 mg PO DAILY 09/25/17 Metoprolol Tartrate [Lopressor -] 50 mg PO BID 09/25/17 Rivaroxaban [Xarelto -] 20 mg PO DAILY 09/25/17 Valsartan 320 mg PO HS 09/25/17 metFORMIN HCL [Glucophage -] 500 mg PO BID 09/25/17 Albuterol Sulfate Inhaler - 1 - 2 inh PO QID PRN #1 inhaler 01/26/18 [Ventolin HFA Inhaler -] Furosemide [Lasix -] 20 mg PO DAILY 30 Days #30 tablet 10/17/18 Pantoprazole Sodium [Protonix -] 40 mg PO DAILY 15 Days #15 10/17/18 tablet.ec ASSESSMENT AND PLAN: The patient is a 63 year old male with a history of afib on metoprolol, HTN, COPD on [place] O2, HLD, diastolic CHF, DM, on methadone maintenance who presents with shortness of breath and dyspnea on exertion for the past two days. #Acute on chronic diastolic CHF On IV lasix 20mg bid, with bnp of 7k, ce q6 x1 more set # Acute COPD exacerbation: albuterol inh #Atrial fibrillation rate controlled continue Xarelto , lopressor continue #Opioid dependence on Methadone at home, needs to be verified the dose # Diabetes type 2, controlled on metformin continue # HTN controlled continue lasix/valsartan/lopressor DVT prophylaxis Xarlto
[2018-11-11] MEDS ORDERED: ALBUTEROL SO4 8 GM HFA INHALER IH PRN (16:33)
--- NOTE | 2018-11-11 16:39 | HP ---
CHIEF COMPLAINT:SOB PCP: HISTORY OF PRESENT ILLNESS: 63 yo M with PMHx of afib (rate controlled on Xarelto), HTN, COPD (home O2 dep. 2L), HLD, dCHF, NIDDM, and methadone dependence who presents with shortness of breath and dyspnea on exertion for the past two days. He is also complaining of a nonproductive cough. Patient was admitted for Afib RVR, pneumonia, and COPD in this ED on 10/15. Patient was discharged on 10/17 and was started on lasix 20mg daily. Patient states he has been compliant with medications at home. Denies increase in fluid or salt intake. He states his legs are now more swollen and becomes short of breath with even minimal exertion. Denies CP ,DIAZ, palpitations, abdominal pain, nausea , vomiting, fever or chills. Allergies: Penicillins Surgeries: Social History: . Denies alcohol or drug use. ER course was notable for: (1) (2) (3) Recent Travel: PAST MEDICAL HISTORY: afib, HTN, COPD, HLD, CHF, and DM, 2 L of O2 at home PAST SURGICAL HISTORY: 2 yrs ago abdominal aortic bypass Social History: Smoking:quit smoking 2 years ago Alcohol:denies Drugs: denies h/o heroin abuse now on Methadone. Family History: father ( [place]) , Sister on cervical ca. Allergies Penicillins Allergy (Verified 11/11/18 11:44) HOME MEDICATIONS: Home Medications Medication Instructions Recorded Methadone [Dolophine -] 70 mg PO DAILY 09/25/17 Metoprolol Tartrate [Lopressor -] 50 mg PO BID 09/25/17 Rivaroxaban [Xarelto -] 20 mg PO DAILY 09/25/17 Valsartan 320 mg PO HS 09/25/17 metFORMIN HCL [Glucophage -] 500 mg PO BID 09/25/17 Albuterol Sulfate Inhaler - 1 - 2 inh PO QID PRN #1 inhaler 01/26/18 [Ventolin HFA Inhaler -] Furosemide [Lasix -] 20 mg PO DAILY 30 Days #30 tablet 10/17/18 Pantoprazole Sodium [Protonix -] 40 mg PO DAILY 15 Days #15 10/17/18 tablet.ec REVIEW OF SYSTEMS CONSTITUTIONAL: Absent: fever, chills, diaphoresis, generalized weakness, malaise, loss of appetite, weight change HEENT: Absent: rhinorrhea, nasal congestion, throat pain, throat swelling, difficulty swallowing, mouth swelling, ear pain, eye pain, visual changes CARDIOVASCULAR: Absent: chest pain, syncope, palpitations, irregular heart rate, lightheadedness , peripheral edema RESPIRATORY: shortness of breath, dyspnea with exertion Absent: cough, , orthopnea, wheezing, stridor, hemoptysis GASTROINTESTINAL: Absent: abdominal pain, abdominal distension, nausea, vomiting, diarrhea, constipation, melena, hematochezia GENITOURINARY: Absent: dysuria, frequency, urgency, hesitancy, hematuria, flank pain, genital pain MUSCULOSKELETAL: Absent: myalgia, arthralgia, joint swelling, back pain, neck pain SKIN: Absent: rash, itching, pallor HEMATOLOGIC/IMMUNOLOGIC: Absent: easy bleeding, easy bruising, lymphadenopathy, frequent infections ENDOCRINE: Absent: unexplained weight gain, unexplained weight loss, heat intolerance, cold intolerance NEUROLOGIC: Absent: headache, focal weakness or paresthesias, dizziness, unsteady gait, seizure, mental status changes, bladder or bowel incontinence PSYCHIATRIC: Absent: anxiety, depression, suicidal or homicidal ideation, hallucinations. PHYSICAL EXAMINATION Vital Signs - 24 hr 11/11/18 11/11/18 11/11/18 11:35 12:00 12:36 Temperature 98.5 F Pulse Rate 104 H 117 H Pulse Rate [ 94 H Apical] Respiratory 22 H 20 Rate Blood Pressure 143/113 H Blood Pressure 128/95 [Right Arm] O2 Sat by Pulse 99 95 98 Oximetry (%) 11/11/18 13:42 Temperature Pulse Rate Pulse Rate [ 60 Apical] Respiratory 20 Rate Blood Pressure Blood Pressure [Right Arm] O2 Sat by Pulse 98 Oximetry (%) GENERAL: AAOx3 NAD HEAD: NCAT EYES: PERRLA, EOMI, sclera anicteric, conjunctiva clear. No lid lag. EARS, NOSE, THROAT: Moist mucous membranes. NECK: supple without lymphadenopathy, JVD, or masses. LUNGS: diminished bilaterally . No wheezes, and no crackles. No accessory muscle use. HEART: Irregular , normal S1 and S2 without murmur, rub or gallop. ABDOMEN: Soft, NTND,NABS no guarding, no rebound, no masses. No hepatomegaly or splenomegaly. MUSCULOSKELETAL: Normal range of motion at all joints. No bony deformities or tenderness. No CVA tenderness. LOWER EXTREMITIES: 2+ pulses, warm, well-perfused. No calf tenderness. No peripheral edema. NEUROLOGICAL: Cranial nerves II-XII intact. Normal speech. PSYCHIATRIC: Cooperative. Good eye contact. Appropriate mood and affect. SKIN: LE stasis dermatitis. Laboratory Results - last 24 hr 11/11/18 11/11/18 11/11/18 12:14 12:14 12:14 WBC 12.2 H RBC 4.22 Hgb 13.1 Hct 39.5 MCV 93.6 MCH 31.0 MCHC 33.1 RDW 15.9 Plt Count 148 MPV 10.7 Absolute Neuts (auto) 9.9 H Neutrophils % 81.1 Lymphocytes % 8.3 D Monocytes % 10.0 Eosinophils % 0.2 D Basophils % 0.4 Nucleated RBC % 0 PT with INR 18.50 H INR 1.56 H PTT (Actin FS) 31.2 Sodium 139 Potassium 4.7 Chloride 102 Carbon Dioxide 33 H Anion Gap 4 L BUN 24 H Creatinine 1.0 Creat Clearance w eGFR 75.47 Random Glucose 135 H Calcium 9.0 Total Bilirubin 0.6 AST 40 H ALT 81 H Alkaline Phosphatase 160 H Creatine Kinase 54 Troponin I 0.07 H B-Natriuretic Peptide 7376.0 H Total Protein 6.7 Albumin 3.6 TSH 0.62 D Free T4 1.57 H ASSESSMENT/PLAN: 63 yo M with PMHx of afib (rate controlled on Xarelto), HTN, COPD (home O2 dep. 2L), HLD, dCHF, NIDDM, and methadone dependence who presents with shortness of breath and dyspnea on exertion for the past two days admitted to telemetry for acute chf exacerbation. Problem List - Problem (1) Acute on chronic diastolic CHF (congestive heart failure) Assessment/Plan: * admit to telemetry * Cardiology consult * IV lasix 20mg BID * daily weights * strict i/o's Code(s): I50.33 - ACUTE ON CHRONIC DIASTOLIC (CONGESTIVE) HEART FAILURE (2) Opioid dependence Assessment/Plan: continue with 40mg Methadone. He is at [address] (3) Diabetes type 2, controlled Assessment/Plan: * ADA diet * BGM ACHS * ISS ACHS * hold oral hyperglycemic meds. (4) Atrial fibrillation with rapid ventricular response Assessment/Plan: * Continue Xarelto. * rate control with Metoprolol (5) COPD (chronic obstructive pulmonary disease) Assessment/Plan: * supplemental O2 prn * maintain SpO2 >90% * On 2L home O2 * BD TX PRN (6) DVT prophylaxis Assessment/Plan: on xarelto for Afib. Code(s): IXQ6082 - Visit type - Emergency Visit Emergency Visit: Yes ED Registration Date: 11/11/18 Care time: The patient presented to the Emergency Department on the above date and was hospitalized for further evaluation of their emergent condition. - New Patient This patient is new to me today: Yes Date on this admission: 11/11/18 - Critical Care Critical Care patient: No
[2018-11-11] MEDS ORDERED: HEPARIN NA (PORCINE) 5,000 UNITS/ML 1ML VIAL SQ SCH (18:00)
[2018-11-11] MEDS: METOPROLOL TARTRATE 50 MG TABLET (FP) PO SCH (23:12)
[2018-11-11] MEDS: VALSARTAN 160 MG TABLET (UD) PO SCH (23:12)
[2018-11-12 00:19] VITALS: BMI 31.4
[2018-11-12] MEDS: FUROSEMIDE 40 MG/4 ML INJECTABLE VIAL IVPUSH SCH ×2 (05:59→16:30)
[2018-11-12] MEDS ORDERED: FUROSEMIDE 40 MG/4 ML INJECTABLE VIAL IVPUSH SCH (06:00)
[2018-11-12 07:21] LABS: BASO % 0.4 % (0-2.0); HEMATOCRIT 36.5 % (35.4-49); LYMPH % 13.3 % (8-40); MCH 30.8 pg (25.7-33.7); MCHC 32.8 g/dl (32.0-35.9); MEAN PLT VOLUME 11.3 fl (7.5-11.1); MONO % 9.8 % (3.8-10.2); NEUT % 75.5 % (42.8-82.8); PLATELET COUNT 122 K/MM3 (134-434); RBC 3.88 M/mm3 (4.00-5.60); WHITE BLOOD COUNT 9.8 K/mm3 (4.0-10.0)
[2018-11-12 07:36] LABS: ALBUMIN 3.3 g/dl (3.4-5.0); ALK PHOS 137 U/L (45-117); ANION GAP 4 MMOL/L (8-16); BILIRUBIN,TOTAL 0.7 mg/dL (0.2-1); BLOOD UREA NITROGEN 28 mg/dL (7-18); CHLORIDE 102 mmol/L (98-107); CO2 33 mmol/L (21-32); CREATININE 1.1 mg/dL (0.55-1.3); GLUCOSE,RANDOM 131 mg/dL (74-106); MAGNESIUM 2.3 mg/dL (1.8-2.4); PHOSPHOROUS 3.5 mg/dL (2.5-4.9); POTASSIUM 4.9 mmol/L (3.5-5.1); SGOT/AST 31 U/L (15-37); SGPT/ALT 71 U/L (13-61); SODIUM 138 mmol/L (136-145); TOT PROT 6.2 g/dl (6.4-8.2)
[2018-11-12] MEDS ORDERED: METHADONE HCL 40 MG DISPERSABLE TABLET ONE (09:42)
[2018-11-12] MEDS ORDERED: METHADONE HCL 10 MG TABLET ONE (09:42)
[2018-11-12] MEDS: METHADONE 40 MG, METHADONE 30 MG PO SCH (09:45)
[2018-11-12] MEDS: METOPROLOL TARTRATE 50 MG TABLET (FP) PO SCH ×2 (09:48→21:02)
[2018-11-12] MEDS: PANTOPRAZOLE 40 MG TABLET (FP) PO SCH (09:48)
[2018-11-12] MEDS ORDERED: METHADONE HCL 40 MG DISPERSABLE TABLET PO SCH (10:00)
[2018-11-12] MEDS ORDERED: FUROSEMIDE 20 MG TABLET (FP) PO SCH (10:00)
--- NOTE | 2018-11-12 10:56 | CON.CARD ---
Consult Consult Specialty:: Cadiology Referred by:: Hospitalist Reason for Consultation:: Cardiac evaluation - History of Present Illness Chief Complaint: Shortness of breath on exertion History of Present Illness: Patient is a 63 year old male with underlying history of AF (on DOAC/Xarelto), HTN, hypercholesterolemia, diastolic dysfunction with history of acute on chronic LV failure, type 2 DM and COPD who presents with dyspnea of exertion and nonproductive cough. He is currently on Methadone treatment. He was previously hospitalized with AF with RVR and COPD exacerbation and was treated then discharged. He had seen Dr. Lei Burns in our office afterwards. He also states pedal edema and complains of shortness of breath with exertion. He denies chest pain or palpitations. He denies paroxysmal nocturnal dyspnea or orthopnea. He denies fever or chills. He denies headache or lightheadedness. - History Source History Provided By: Patient, Medical Record Limitations to Obtaining History: No Limitations - Past Medical History Cardio/Vascular: Yes: AFIB, CHF, HTN, Hyperlipdemia Pulmonary: Yes: COPD Psych: Yes: Addictions, Depression Endocrine: Yes: Diabetes Mellitus - Past Surgical History Past Surgical History: Yes: Bypass (Abdominal aorta) - Alcohol/Substance Use Hx Alcohol Use: No History of Substance Use: reports: Heroin - Smoking History Smoking history: Former smoker Have you smoked in the past 12 months: No Aproximately how many cigarettes per day: 10 If you are a former smoker, when did you quit?: 2 years - Social History ADL: Independent History of Recent Travel: No Home Medications - Allergies Allergies/Adverse Reactions: Allergies Allergy/AdvReac Type Severity Reaction Status Date / Time Penicillins Allergy Verified 11/11/18 11:44 - Home Medications Home Medications: Ambulatory Orders Methadone [Dolophine -] 70 mg PO DAILY 09/25/17 Metoprolol Tartrate [Lopressor -] 50 mg PO BID 09/25/17 Rivaroxaban [Xarelto -] 20 mg PO DAILY 09/25/17 Valsartan 320 mg PO HS 09/25/17 metFORMIN HCL [Glucophage -] 500 mg PO BID 09/25/17 Albuterol Sulfate Inhaler - [Ventolin HFA Inhaler -] 1 - 2 inh PO QID PRN #1 inhaler 01/26/18 Furosemide [Lasix -] 20 mg PO DAILY 30 Days #30 tablet 10/17/18 Pantoprazole Sodium [Protonix -] 40 mg PO DAILY 15 Days #15 tablet.ec 10/17/18 Family Disease History - Family Disease History Family Disease History: Heart Disease: Father ([place]), CA: Sister (Cervical CA) Review of Systems - Review of Systems Constitutional: denies: Chills, Fever Cardiovascular: reports: Shortness of Breath. denies: Chest Pain, Palpitations Respiratory: reports: Cough, SOB, SOB on Exertion. denies: Orthopnea, PND Gastrointestinal: denies: Abdominal Pain, Diarrhea, Melena, Nausea, Rectal Bleeding, Vomiting Genitourinary: denies: Dysuria, Hematuria Musculoskeletal: denies: Back Pain Neurological: denies: Dizziness, Headache, Seizure, Syncope Vital Signs: Vital Signs Temperature 97.9 F 11/12/18 04:41 Pulse Rate 63 11/12/18 04:41 Respiratory Rate 20 11/12/18 04:41 Blood Pressure 137/103 H 11/12/18 04:41 O2 Sat by Pulse Oximetry (%) 98 11/11/18 23:51 Eyes: Yes: PERRL HENT: Yes: Atraumatic Neck: Yes: Supple Respiratory: Yes: Diminished Gastrointestinal: Yes: Normal Bowel Sounds, Soft. No: Tenderness Cardiovascular: Yes: Regular Rate and Rhythm JVD: No Carotid Bruit: No - Other Data Labs, Other Data: CBC, BMP 11/12/18 06:35 11/12/18 06:35 INR, PTT INR 1.56 (0.83-1.09) H 11/11/18 12:14 Troponin, BNP 11/11/18 12:14 Troponin I 0.07 H B-Natriuretic Peptide 7376.0 H Troponin, BNP 11/11/18 12:14 Troponin I 0.07 H B-Natriuretic Peptide 7376.0 H Initial ECG Atrial fibrillation with RVR Follow up ECG reveals Sinus rhythm Echo: Report Reviewed Imaging - Results Chest X-ray: Report Reviewed (Unremarkable) EKG: Report Reviewed Problem List - Problems (1) Acute on chronic diastolic CHF (congestive heart failure) Code(s): I50.33 - ACUTE ON CHRONIC DIASTOLIC (CONGESTIVE) HEART FAILURE (2) Atrial fibrillation with rapid ventricular response Code(s): I48.91 - UNSPECIFIED ATRIAL FIBRILLATION (3) Diabetes type 2, controlled Code(s): E11.9 - TYPE 2 DIABETES MELLITUS WITHOUT COMPLICATIONS (4) Opioid dependence Code(s): F11.20 - OPIOID DEPENDENCE, UNCOMPLICATED (5) CHF (congestive heart failure) Code(s): I50.9 - HEART FAILURE, UNSPECIFIED (6) COPD (chronic obstructive pulmonary disease) Code(s): J44.9 - CHRONIC OBSTRUCTIVE PULMONARY DISEASE, UNSPECIFIED Qualifiers: COPD type: unspecified COPD Qualified Code(s): J44.9 - Chronic obstructive pulmonary disease, unspecified (7) Diastolic dysfunction Code(s): I51.9 - HEART DISEASE, UNSPECIFIED (8) PAD (peripheral artery disease) Code(s): I73.9 - PERIPHERAL VASCULAR DISEASE, UNSPECIFIED (9) Paroxysmal atrial fibrillation Code(s): I48.0 - PAROXYSMAL ATRIAL FIBRILLATION (10) S/P aorto-bifemoral bypass surgery Code(s): Z95.828 - PRESENCE OF OTHER VASCULAR IMPLANTS AND GRAFTS (11) Shortness of breath Code(s): R06.02 - SHORTNESS OF BREATH (12) Substance abuse Code(s): F19.10 - OTHER PSYCHOACTIVE SUBSTANCE ABUSE, UNCOMPLICATED Assessment/Plan 1. PAF [id number] score of 4 on DOAC currently in sinus rhythm 2. HTN 3. Hypercholesterolemia 4. DM 5. Acute on chronic LV diastolic failure 6. COPD 7. Previous substance/Opioid abuse currently on Methadone treatment 8. Post aortic bifem bypass PLAN: 1. Continue Metoprolol and Valsartan as tolerated 2. Continue Xarelto 3. IV diuretics and monitor renal function and electrolytes 4. Check office records. Previous echocardiography from last year was reviewed. 5. Bronchodilator and O2 6. Methadone treatment Further plans are to follow Dorian Figueroa MD
--- NOTE | 2018-11-12 11:41 | PN ---
Progress Note (short form) - Note Progress Note: Patient is feeling better with no acute distress. improving. Vital Signs Temperature 97.9 F 11/12/18 04:41 Pulse Rate 63 11/12/18 04:41 Respiratory Rate 20 11/12/18 04:41 Blood Pressure 137/103 H 11/12/18 04:41 O2 Sat by Pulse Oximetry (%) 98 11/11/18 23:51 Initial Vital Signs Temp Pulse Resp BP Pulse Ox 98.5 F 104 H 22 H 143/113 H 99 11/11/18 11:35 11/11/18 11:35 11/11/18 11:35 11/11/18 11:35 11/11/18 11:35 GENERAL: Awake, alert, and fully oriented, in no acute distress. HEAD: Normal with no signs of trauma. EYES: Pupils equal, round and reactive to light, extraocular movements intact, sclera anicteric, conjunctiva clear. EARS, NOSE, THROAT: Ears normal, oropharynx clear without exudates. Moist mucous membranes. NECK: Normal range of motion, supple without lymphadenopathy, JVD, or masses. LUNGS: decreased BS bl , no wheezing , and no crackles. No accessory muscle use. HEART: Regular rate and rhythm, normal S1 and S2 without murmur, rub or gallop. ABDOMEN: Soft, nontender, not distended, normoactive bowel sounds, no guarding, no rebound, no masses. EXTREMITIES: 2+ pulses, warm, well-perfused. No cyanosis. No clubbing. No peripheral edema. NEUROLOGICAL: Cranial nerves II-XII intact. Normal speech. Normal gait. PSYCHIATRIC: Cooperative. Good eye contact. Appropriate mood and affect. SKIN: Warm, dry, normal turgor, no rashes or lesions noted, normal capillary refill. CBCD WBC 9.8 K/mm3 (4.0-10.0) 11/12/18 06:35 RBC 3.88 M/mm3 (4.00-5.60) L 11/12/18 06:35 Hgb 12.0 GM/dL (11.7-16.9) 11/12/18 06:35 Hct 36.5 % (35.4-49) 11/12/18 06:35 MCV 94.0 fl (80-96) 11/12/18 06:35 MCHC 32.8 g/dl (32.0-35.9) 11/12/18 06:35 RDW 16.0 % (11.9-15.9) H 11/12/18 06:35 Plt Count 122 K/MM3 (134-434) L 11/12/18 06:35 MPV 11.3 fl (7.5-11.1) H 11/12/18 06:35 CMP Sodium 138 mmol/L (136-145) 11/12/18 06:35 Potassium 4.9 mmol/L (3.5-5.1) 11/12/18 06:35 Chloride 102 mmol/L (98-107) 11/12/18 06:35 Carbon Dioxide 33 mmol/L (21-32) H 11/12/18 06:35 Anion Gap 4 MMOL/L (8-16) L 11/12/18 06:35 BUN 28 mg/dL (7-18) H 11/12/18 06:35 Creatinine 1.1 mg/dL (0.55-1.3) 11/12/18 06:35 Creat Clearance w eGFR 67.61 (>60) 11/12/18 06:35 Random Glucose 131 mg/dL (74-106) H 11/12/18 06:35 Calcium 9.0 mg/dL (8.5-10.1) 11/12/18 06:35 Total Bilirubin 0.7 mg/dL (0.2-1) 11/12/18 06:35 AST 31 U/L (15-37) 11/12/18 06:35 ALT 71 U/L (13-61) H 11/12/18 06:35 Alkaline Phosphatase 137 U/L (45-117) H 11/12/18 06:35 Total Protein 6.2 g/dl (6.4-8.2) L 11/12/18 06:35 Albumin 3.3 g/dl (3.4-5.0) L 11/12/18 06:35 CARDIAC ENZYMES Creatine Kinase 54 U/L (26-308) 11/11/18 12:14 Troponin I 0.07 ng/ml (0.00-0.05) H 11/11/18 12:14 Current Medications Generic Name Dose Route Start Last Admin Trade Name Freq PRN Reason Stop Dose Admin Albuterol Sulfate 2 puff 11/11/18 16:33 Ventolin Hfa Inhaler - IH Q6H PRN WHEEZING Furosemide 20 mg 11/12/18 06:00 11/12/18 05:59 Lasix Injection - IVPUSH 20 mg BID@0600,1400 DOMINIC Administration Metformin HCl 500 mg 11/12/18 16:45 Glucophage - PO BIDAC DOMINIC Methadone HCl 40 mg/ Methadone 70 mg 11/12/18 09:30 11/12/18 09:45 HCl 30 mg PO 70 mg DAILY@0600 DOMINIC Administration Metoprolol Tartrate 50 mg 11/11/18 22:00 11/12/18 09:48 Lopressor - PO 50 mg BID DOMINIC Administration Pantoprazole Sodium 40 mg 11/12/18 10:00 11/12/18 09:48 Protonix - PO 40 mg DAILY DOMINIC Administration Rivaroxaban 20 mg 11/12/18 18:00 Xarelto - PO DAILY@1800 DOMINIC Valsartan 320 mg 11/11/18 22:00 11/11/18 23:12 Diovan - PO 320 mg HS DOMINIC Administration Home Medications Medication Instructions Recorded Methadone [Dolophine -] 70 mg PO DAILY 09/25/17 Metoprolol Tartrate [Lopressor -] 50 mg PO BID 09/25/17 Rivaroxaban [Xarelto -] 20 mg PO DAILY 09/25/17 Valsartan 320 mg PO HS 09/25/17 metFORMIN HCL [Glucophage -] 500 mg PO BID 09/25/17 Albuterol Sulfate Inhaler - 1 - 2 inh PO QID PRN #1 inhaler 01/26/18 [Ventolin HFA Inhaler -] Furosemide [Lasix -] 20 mg PO DAILY 30 Days #30 tablet 10/17/18 Pantoprazole Sodium [Protonix -] 40 mg PO DAILY 15 Days #15 10/17/18 tablet.ec A/P: The patient is a 63 year old male with a history of afib on metoprolol, HTN, COPD on NC O2, HLD, diastolic CHF, DM, on methadone maintenance who presents with shortness of breath and dyspnea on exertion for the past two days. #Acute on chronic diastolic CHF On IV lasix 20mg bid, with bnp of 7k, CE is negative. will switch to po lasix if she improves. # Acute COPD exacerbation: albuterol inh #Atrial fibrillation rate controlled continue Xarelto , lopressor continue #Opioid dependence on Methadone at home, needs to be verified the dose # Diabetes type 2, controlled on metformin continue # HTN controlled continue lasix/valsartan/lopressor DVT prophylaxis: xarelot Visit type - Emergency Visit Emergency Visit: Yes ED Registration Date: 11/11/18 Care time: The patient presented to the Emergency Department on the above date and was hospitalized for further evaluation of their emergent condition. - New Patient This patient is new to me today: No - Critical Care Critical Care patient: No - Discharge Referral Referred to [facility] Med P.C.: No
[2018-11-12] MEDS: metFORMIN HCL 500 MG TABLET (FP) PO SCH (17:22)
[2018-11-12] MEDS: RIVAROXABAN 20 MG TABLET PO SCH (17:23)
--- NOTE | 2018-11-12 18:02 | EKG ---
Test Reason : Blood Pressure : / mmHG Vent. Rate : 062 BPM Atrial Rate : 062 BPM P-R Int : 000 ms QRS Dur : 068 ms QT Int : 392 ms P-R-T Axes : 000 070 232 degrees QTc Int : 397 ms POOR DATA QUALITY, INTERPRETATION MAY BE ADVERSELY AFFECTED ECTOPIC ATRIAL RHYTHM WITH SHORT NM NONSPECIFIC ST AND T WAVE ABNORMALITY ABNORMAL ECG WHEN COMPARED WITH ECG OF 11-NOV-2018 11:09, ECTOPIC ATRIAL RHYTHM HAS REPLACED ATRIAL FIBRILLATION VENT. RATE HAS DECREASED BY 76 BPM NON-SPECIFIC CHANGE IN ST SEGMENT IN LATERAL LEADS Confirmed by MD MYESHA, CORONA ([id number]) on 11/12/2018 6:02:07 PM Referred By: Confirmed By:CORONA BRUNNER MD
--- NOTE | 2018-11-12 18:05 | EKG ---
Test Reason : Blood Pressure : / mmHG Vent. Rate : 138 BPM Atrial Rate : 141 BPM P-R Int : 000 ms QRS Dur : 066 ms QT Int : 280 ms P-R-T Axes : 000 064 -53 degrees QTc Int : 424 ms ATRIAL FIBRILLATION WITH RAPID VENTRICULAR RESPONSE NONSPECIFIC ST AND T WAVE ABNORMALITY ABNORMAL ECG WHEN COMPARED WITH ECG OF 16-OCT-2018 11:08, T WAVE INVERSION NOW EVIDENT IN LATERAL LEADS Confirmed by MD MYESHA, CORONA ([id number]) on 11/12/2018 6:05:02 PM Referred By: Confirmed By:CORONA BRUNNER MD
[2018-11-12] MEDS: VALSARTAN 160 MG TABLET (UD) PO SCH (21:02)
[2018-11-13] MEDS ORDERED: METHADONE HCL 40 MG DISPERSABLE TABLET ONE ×2 (05:49→05:56)
[2018-11-13] MEDS ORDERED: METHADONE HCL 10 MG TABLET ONE (05:57)
[2018-11-13] MEDS: METHADONE 40 MG, METHADONE 30 MG PO SCH (06:00)
[2018-11-13] MEDS: metFORMIN HCL 500 MG TABLET (FP) PO SCH ×2 (06:00→17:09)
[2018-11-13] MEDS: FUROSEMIDE 40 MG/4 ML INJECTABLE VIAL IVPUSH SCH ×2 (06:01→15:16)
--- NOTE | 2018-11-13 09:11 | PN ---
Physical Exam: SUBJECTIVE: Patient seen and examined at bedside- no acute events overnight patients states that his breathing is mcuh improved; he denies any CP/SOB/N/V fevers or chills OBJECTIVE: Vital Signs Period Temp Pulse Resp BP Sys/Chatterjee Pulse Ox Last 24 Hr 97.5 F-98.6 F 61-116 18-20 126-141/66-101 94 GENERAL: The patient is awake, alert, and fully oriented, in no acute distress. EYES: PEERLA EOMI no scleral icterus. NECK: no JVD; no lymphadenopathy LUNGS: CTA B/L; no rales, rhonchi or wheezing HEART: Regular rate and rhythm, S1, S2 without murmur, rub or gallop. ABDOMEN: Soft, nontender, nondistended, normoactive bowel sounds, no guarding, no rebound, no hepatosplenomegaly, no masses. EXTREMITIES: 2+ pulses, warm, well-perfused, 2+ edema B/L. PSYCH: Normal mood, normal affect. SKIN: Warm, dry, normal turgor, no rashes or lesions noted Laboratory Results - last 24 hr 11/12/18 11/12/18 11/13/18 17:18 21:06 05:28 POC Glucometer 130 135 136 Active Medications Generic Name Dose Route Start Last Admin Trade Name Freq PRN Reason Stop Dose Admin Albuterol Sulfate 2 puff 11/11/18 16:33 Ventolin Hfa Inhaler - IH Q6H PRN WHEEZING Furosemide 20 mg 11/12/18 06:00 11/13/18 06:01 Lasix Injection - IVPUSH 20 mg BID@0600,1400 DOMINIC Administration Metformin HCl 500 mg 11/12/18 16:45 11/13/18 06:00 Glucophage - PO 500 mg BIDAC DOMINIC Administration Methadone HCl 40 mg/ Methadone 70 mg 11/12/18 09:30 11/13/18 06:00 HCl 30 mg PO 70 mg DAILY@0600 DOMINIC Administration Metoprolol Tartrate 50 mg 11/11/18 22:00 11/12/18 21:02 Lopressor - PO 50 mg BID DOMINIC Administration Pantoprazole Sodium 40 mg 11/12/18 10:00 11/12/18 09:48 Protonix - PO 40 mg DAILY DOMINIC Administration Rivaroxaban 20 mg 11/12/18 18:00 11/12/18 17:23 Xarelto - PO 20 mg DAILY@1800 DOMINIC Administration Valsartan 320 mg 11/11/18 22:00 11/12/18 21:02 Diovan - advertising editor 320 mg HS DOMINIC Administration ASSESSMENT/PLAN: 63 yo M with PMHx of afib (rate controlled on Xarelto), HTN, COPD (home O2 dep. 2L), HLD, dCHF, NIDDM, and methadone dependence who presents with shortness of breath and dyspnea on exertion for the past two days admitted to telemetry for acute chf exacerbation. #Acute on chronic diastolic CHF exacerbation -c/w IV lasix 20 BID -valsartan 320 daily -monitor i's and o's -strict daily weight -cardio on board -? repeat echo # Afib with RVR patient was tachy overnight with HR is the 110's-120's -c/w xarelto 20 daily -c/w lopressor 50 BID #Opiod dependence -patient is on methadone 40 mg daily #DM -metformin 500 BID -BGMS ACHS #COPD albuterol inhaler PRN on 2L O2 at home maintain spo2 88-92 DVT PPX : xarelto Problem List - Problems (1) Atrial fibrillation with rapid ventricular response Code(s): I48.91 - UNSPECIFIED ATRIAL FIBRILLATION (2) Diabetes type 2, controlled Code(s): E11.9 - TYPE 2 DIABETES MELLITUS WITHOUT COMPLICATIONS (3) Opioid dependence Code(s): F11.20 - OPIOID DEPENDENCE, UNCOMPLICATED Visit type - Emergency Visit Emergency Visit: Yes ED Registration Date: 11/11/18 Care time: The patient presented to the Emergency Department on the above date and was hospitalized for further evaluation of their emergent condition. - New Patient This patient is new to me today: Yes Date on this admission: 11/13/18 - Critical Care Critical Care patient: No
--- NOTE | 2018-11-13 09:20 | PN ---
Progress Note, Physician Chief Complaint: AF with RVR History of Present Illness: Patient was seen and examined. Awake and alert. Chart was reviewed Denies chest pain. Less SOB - Current Medication List Current Medications: Active Medications Albuterol Sulfate (Ventolin Hfa Inhaler -) 2 puff IH Q6H PRN PRN Reason: WHEEZING Furosemide (Lasix Injection -) 20 mg IVPUSH BID@0600,1400 [facility] Last Admin: 11/13/18 06:01 Dose: 20 mg Metformin HCl (Glucophage -) 500 mg PO BIDAC [facility] Last Admin: 11/13/18 06:00 Dose: 500 mg Methadone HCl 40 mg/ Methadone (HCl 30 mg) 70 mg PO DAILY@0600 [facility] Last Admin: 11/13/18 06:00 Dose: 70 mg Metoprolol Tartrate (Lopressor -) 50 mg PO BID [facility] Last Admin: 11/12/18 21:02 Dose: 50 mg Pantoprazole Sodium (Protonix -) 40 mg PO DAILY [facility] Last Admin: 11/12/18 09:48 Dose: 40 mg Rivaroxaban (Xarelto -) 20 mg PO DAILY@1800 [facility] Last Admin: 11/12/18 17:23 Dose: 20 mg Valsartan (Diovan -) 320 mg PO HS [facility] Last Admin: 11/12/18 21:02 Dose: 320 mg - Objective Vital Signs: Vital Signs Temperature 97.8 F 11/13/18 05:00 Pulse Rate 110 H 11/13/18 05:00 Respiratory Rate 18 11/13/18 05:00 Blood Pressure 141/66 11/13/18 05:00 O2 Sat by Pulse Oximetry (%) 94 L 11/12/18 21:00 Eyes: Yes: PERRL HENT: Yes: Atraumatic Neck: Yes: Supple Cardiovascular: Yes: Tachycardia, Pulse Irregular, S1, S2 Respiratory: Yes: Diminished Gastrointestinal: Yes: Normal Bowel Sounds, Soft. No: Tenderness Edema: Yes Additional Findings/Remarks: - Review of Systems Constitutional: denies: Chills, Fever Cardiovascular: reports: Shortness of Breath. denies: Chest Pain, Palpitations Respiratory: reports: Cough, SOB, SOB on Exertion. denies: Orthopnea, PND Gastrointestinal: denies: Abdominal Pain, Diarrhea, Melena, Nausea, Rectal Bleeding, Vomiting Genitourinary: denies: Dysuria, Hematuria Musculoskeletal: denies: Back Pain Neurological: denies: Dizziness, Headache, Seizure, Syncope Problem List - Problems (1) Acute on chronic diastolic CHF (congestive heart failure) Code(s): I50.33 - ACUTE ON CHRONIC DIASTOLIC (CONGESTIVE) HEART FAILURE (2) Atrial fibrillation with rapid ventricular response Code(s): I48.91 - UNSPECIFIED ATRIAL FIBRILLATION (3) Diabetes type 2, controlled Code(s): E11.9 - TYPE 2 DIABETES MELLITUS WITHOUT COMPLICATIONS (4) Opioid dependence Code(s): F11.20 - OPIOID DEPENDENCE, UNCOMPLICATED (5) CHF (congestive heart failure) Code(s): I50.9 - HEART FAILURE, UNSPECIFIED (6) COPD (chronic obstructive pulmonary disease) Code(s): J44.9 - CHRONIC OBSTRUCTIVE PULMONARY DISEASE, UNSPECIFIED Qualifiers: COPD type: unspecified COPD Qualified Code(s): J44.9 - Chronic obstructive pulmonary disease, unspecified (7) Diastolic dysfunction Code(s): I51.9 - HEART DISEASE, UNSPECIFIED (8) PAD (peripheral artery disease) Code(s): I73.9 - PERIPHERAL VASCULAR DISEASE, UNSPECIFIED (9) Paroxysmal atrial fibrillation Code(s): I48.0 - PAROXYSMAL ATRIAL FIBRILLATION (10) S/P aorto-bifemoral bypass surgery Code(s): Z95.828 - PRESENCE OF OTHER VASCULAR IMPLANTS AND GRAFTS (11) Shortness of breath Code(s): R06.02 - SHORTNESS OF BREATH (12) Substance abuse Code(s): F19.10 - OTHER PSYCHOACTIVE SUBSTANCE ABUSE, UNCOMPLICATED Assessment/Plan 1. PAF [id number] score of 4 on DOAC currently in sinus rhythm 2. HTN 3. Hypercholesterolemia 4. DM 5. Acute on chronic LV diastolic failure 6. COPD 7. Previous substance/Opioid abuse currently on Methadone treatment 8. Post aortic bifem bypass PLAN: 1. Continue Metoprolol and Valsartan as tolerated. Add Calcium channel mercy to be used for added rate control 2. Continue Xarelto 3. IV diuretics and monitor renal function and electrolytes 4. Check office records. 5. Bronchodilator and O2 6. Methadone treatment Further plans are to follow Dorian Figueroa MD
[2018-11-13] MEDS: METOPROLOL TARTRATE 50 MG TABLET (FP) PO SCH ×2 (09:28→21:22)
[2018-11-13] MEDS: PANTOPRAZOLE 40 MG TABLET (FP) PO SCH (09:28)
[2018-11-13] MEDS ORDERED: dilTIAZem HCL 30 MG TABLET (FP) PO ONE (10:00)
--- NOTE | 2018-11-13 13:47 | PN ---
Teaching Attending Note Name of Resident: Lizett Washington ATTENDING PHYSICIAN STATEMENT I saw and evaluated the patient. I reviewed the resident's note and discussed the case with the resident. I agree with the resident's findings and plan as documented. SUBJECTIVE: Patient is feeling better with no acute distress, on NC at home, going for echo in am. OBJECTIVE: Vital Signs Temperature 97.9 F 11/13/18 09:00 Pulse Rate 91 H 11/13/18 09:00 Respiratory Rate 17 11/13/18 09:00 Blood Pressure 135/69 11/13/18 09:00 O2 Sat by Pulse Oximetry (%) 95 11/13/18 09:00 GENERAL: Awake, alert, and fully oriented, in no acute distress. HEAD: Normal with no signs of trauma. EYES: Pupils equal, round and reactive to light, extraocular movements intact, sclera anicteric, conjunctiva clear. EARS, NOSE, THROAT: Ears normal, oropharynx clear without exudates. Moist mucous membranes. NECK: Normal range of motion, supple without lymphadenopathy, JVD, or masses. LUNGS: decreased BS bl , no wheezing , and no crackles. No accessory muscle use. HEART: Regular rate and rhythm, normal S1 and S2 without murmur, rub or gallop. ABDOMEN: Soft, nontender, not distended, normoactive bowel sounds, no guarding, no rebound, no masses. EXTREMITIES: 2+ pulses, warm, well-perfused. No cyanosis. No clubbing. No peripheral edema. NEUROLOGICAL: Cranial nerves II-XII intact. Normal speech. Normal gait. PSYCHIATRIC: Cooperative. Good eye contact. Appropriate mood and affect. SKIN: Warm, dry, normal turgor, no rashes or lesions noted, normal capillary refill. CBCD WBC 9.8 K/mm3 (4.0-10.0) 11/12/18 06:35 RBC 3.88 M/mm3 (4.00-5.60) L 11/12/18 06:35 Hgb 12.0 GM/dL (11.7-16.9) 11/12/18 06:35 Hct 36.5 % (35.4-49) 11/12/18 06:35 MCV 94.0 fl (80-96) 11/12/18 06:35 MCHC 32.8 g/dl (32.0-35.9) 11/12/18 06:35 RDW 16.0 % (11.9-15.9) H 11/12/18 06:35 Plt Count 122 K/MM3 (134-434) L 11/12/18 06:35 MPV 11.3 fl (7.5-11.1) H 11/12/18 06:35 CMP Sodium 138 mmol/L (136-145) 11/12/18 06:35 Potassium 4.9 mmol/L (3.5-5.1) 11/12/18 06:35 Chloride 102 mmol/L (98-107) 11/12/18 06:35 Carbon Dioxide 33 mmol/L (21-32) H 11/12/18 06:35 Anion Gap 4 MMOL/L (8-16) L 11/12/18 06:35 BUN 28 mg/dL (7-18) H 11/12/18 06:35 Creatinine 1.1 mg/dL (0.55-1.3) 11/12/18 06:35 Creat Clearance w eGFR 67.61 (>60) 11/12/18 06:35 Random Glucose 131 mg/dL (74-106) H 11/12/18 06:35 Calcium 9.0 mg/dL (8.5-10.1) 11/12/18 06:35 Total Bilirubin 0.7 mg/dL (0.2-1) 11/12/18 06:35 AST 31 U/L (15-37) 11/12/18 06:35 ALT 71 U/L (13-61) H 11/12/18 06:35 Alkaline Phosphatase 137 U/L (45-117) H 11/12/18 06:35 Total Protein 6.2 g/dl (6.4-8.2) L 11/12/18 06:35 Albumin 3.3 g/dl (3.4-5.0) L 11/12/18 06:35 CARDIAC ENZYMES Creatine Kinase 54 U/L (26-308) 11/11/18 12:14 Troponin I 0.07 ng/ml (0.00-0.05) H 11/11/18 12:14 Current Medications Generic Name Dose Route Start Last Admin Trade Name Freq PRN Reason Stop Dose Admin Albuterol Sulfate 2 puff 11/11/18 16:33 Ventolin Hfa Inhaler - IH Q6H PRN WHEEZING Furosemide 20 mg 11/12/18 06:00 11/13/18 06:01 Lasix Injection - IVPUSH 20 mg BID@0600,1400 [facility] Administration Metformin HCl 500 mg 11/12/18 16:45 11/13/18 06:00 Glucophage - PO 500 mg BIDAC [facility] Administration Methadone HCl 40 mg/ Methadone 70 mg 11/12/18 09:30 11/13/18 06:00 HCl 30 mg PO 70 mg DAILY@0600 [facility] Administration Metoprolol Tartrate 50 mg 11/11/18 22:00 11/13/18 09:28 Lopressor - PO 50 mg BID [facility] Administration Pantoprazole Sodium 40 mg 11/12/18 10:00 11/13/18 09:28 Protonix - PO 40 mg DAILY [facility] Administration Rivaroxaban 20 mg 11/12/18 18:00 11/12/18 17:23 Xarelto - PO 20 mg DAILY@1800 [facility] Administration Valsartan 320 mg 11/11/18 22:00 11/12/18 21:02 Diovan - PO 320 mg HS [facility] Administration Home Medications Medication Instructions Recorded Methadone [Dolophine -] 70 mg PO DAILY 09/25/17 Metoprolol Tartrate [Lopressor -] 50 mg PO BID 09/25/17 Rivaroxaban [Xarelto -] 20 mg PO DAILY 09/25/17 Valsartan 320 mg PO HS 09/25/17 metFORMIN HCL [Glucophage -] 500 mg PO BID 09/25/17 Albuterol Sulfate Inhaler - 1 - 2 inh PO QID PRN #1 inhaler 01/26/18 [Ventolin HFA Inhaler -] Furosemide [Lasix -] 20 mg PO DAILY 30 Days #30 tablet 10/17/18 Pantoprazole Sodium [Protonix -] 40 mg PO DAILY 15 Days #15 10/17/18 tablet.ec ASSESSMENT AND PLAN: The patient is a 63 year old male with a history of afib on metoprolol, HTN, COPD on NC O2, HLD, diastolic CHF, DM, on methadone maintenance who presents with shortness of breath and dyspnea on exertion for the past two days. #Acute on chronic diastolic CHF On IV lasix 20mg bid continue , with bnp of 7k , CE is negative. will switch to po lasix in am if he improves # Acute COPD exacerbation: albuterol inh #Atrial fibrillation rate controlled continue Xarelto lopressor continue #Opioid dependence on Methadone at home, needs to be verified the dose # Diabetes type 2, controlled on metformin continue # HTN controlled continue lasix/valsartan/lopressor DVT prophylaxis: xarelto
[2018-11-13] MEDS: RIVAROXABAN 20 MG TABLET PO SCH (17:09)
[2018-11-13] MEDS: VALSARTAN 160 MG TABLET (UD) PO SCH (21:22)
[2018-11-14] MEDS ORDERED: METHADONE HCL 40 MG DISPERSABLE TABLET ONE (05:54)
[2018-11-14] MEDS ORDERED: METHADONE HCL 10 MG TABLET ONE (05:55)
[2018-11-14] MEDS: metFORMIN HCL 500 MG TABLET (FP) PO SCH (06:00)
[2018-11-14] MEDS: METHADONE 40 MG, METHADONE 30 MG PO SCH (06:00)
[2018-11-14] MEDS: FUROSEMIDE 40 MG/4 ML INJECTABLE VIAL IVPUSH SCH ×2 (06:00→14:05)
[2018-11-14 07:39] LABS: HEMATOCRIT 37.8 % (35.4-49); HEMOGLOBIN 12.6 GM/dL (11.7-16.9); MCH 30.8 pg (25.7-33.7); MCHC 33.3 g/dl (32.0-35.9); MEAN CELL VOLUME 92.6 fl (80-96); MEAN PLT VOLUME 10.3 fl (7.5-11.1); PLATELET COUNT 159 K/MM3 (134-434); RBC 4.08 M/mm3 (4.00-5.60); RDW 15.7 % (11.9-15.9); WHITE BLOOD COUNT 9.1 K/mm3 (4.0-10.0)
[2018-11-14 08:03] LABS: ANION GAP 5 MMOL/L (8-16); BLOOD UREA NITROGEN 31 mg/dL (7-18); CALCIUM 8.6 mg/dL (8.5-10.1); CHLORIDE 100 mmol/L (98-107); CO2 35 mmol/L (21-32); CREATININE 1.2 mg/dL (0.55-1.3); GLUCOSE,RANDOM 116 mg/dL (74-106); MAGNESIUM 2.1 mg/dL (1.8-2.4); PHOSPHOROUS 3.9 mg/dL (2.5-4.9); POTASSIUM 4.3 mmol/L (3.5-5.1); SODIUM 140 mmol/L (136-145)
[2018-11-14] MEDS: PANTOPRAZOLE 40 MG TABLET (FP) PO SCH (10:25)
[2018-11-14] MEDS: METOPROLOL TARTRATE 50 MG TABLET (FP) PO SCH (10:30)
[2018-11-14 11:06] VITALS: BP 141/74; PULSE 70; TEMP 98.4
--- NOTE | 2018-11-14 13:14 | PN ---
Progress Note, Physician Chief Complaint: AF with variable HR History of Present Illness: Patient was seen and examined. Awake and alert. Chart was reviewed Denies chest pain. Less SOB - Current Medication List Current Medications: Active Medications Albuterol Sulfate (Ventolin Hfa Inhaler -) 2 puff IH Q6H PRN PRN Reason: WHEEZING Furosemide (Lasix Injection -) 20 mg IVPUSH BID@0600,1400 REPLACED BY [facility] Last Admin: 11/14/18 06:00 Dose: 20 mg Metformin HCl (Glucophage -) 500 mg PO BIDAC REPLACED BY [facility] Last Admin: 11/14/18 06:00 Dose: 500 mg Methadone HCl 40 mg/ Methadone (HCl 30 mg) 70 mg PO DAILY@0600 REPL[facility]ED BY [facility] Last Admin: 11/14/18 06:00 Dose: 70 mg Metoprolol Tartrate (Lopressor -) 50 mg PO BID REPL[facility]ED BY [facility] Last Admin: 11/14/18 10:30 Dose: 50 mg Pantoprazole Sodium (Protonix -) 40 mg PO DAILY REPL[facility]ED BY [facility] Last Admin: 11/14/18 10:25 Dose: 40 mg Rivaroxaban (Xarelto -) 20 mg PO DAILY@1800 REPLACED BY [facility] Last Admin: 11/13/18 17:09 Dose: 20 mg Valsartan (Diovan -) 320 mg PO HS [facility]PL[facility]ED BY [facility] Last Admin: 11/13/18 21:22 Dose: 320 mg - Objective Vital Signs: Vital Signs Temperature 98.4 F 11/14/18 09:00 Pulse Rate 70 11/14/18 09:00 Respiratory Rate 18 11/14/18 09:00 Blood Pressure 141/74 11/14/18 09:00 O2 Sat by Pulse Oximetry (%) 95 11/14/18 09:00 Eyes: Yes: PERRL HENT: Yes: Atraumatic Neck: Yes: Supple Cardiovascular: Yes: Pulse Irregular, S1, S2 Respiratory: Yes: Diminished Gastrointestinal: Yes: Normal Bowel Sounds, Soft. No: Tenderness Edema: Yes Edema: LLE: Trace, RLE: Trace Additional Findings/Remarks: - Review of Systems Constitutional: denies: Chills, Fever Cardiovascular: reports: Shortness of Breath. denies: Chest Pain, Palpitations Respiratory: reports: Cough, SOB, SOB on Exertion. denies: Orthopnea, PND Gastrointestinal: denies: Abdominal Pain, Diarrhea, Melena, Nausea, Rectal Bleeding, Vomiting Genitourinary: denies: Dysuria, Hematuria Musculoskeletal: denies: Back Pain Neurological: denies: Dizziness, Headache, Seizure, Syncope Labs: CBC, BMP 11/14/18 07:11 11/14/18 07:11 Problem List - Problems (1) Acute on chronic diastolic CHF (congestive heart failure) Code(s): I50.33 - ACUTE ON CHRONIC DIASTOLIC (CONGESTIVE) HEART FAILURE (2) Atrial fibrillation with rapid ventricular response Code(s): I48.91 - UNSPECIFIED ATRIAL FIBRILLATION (3) Diabetes type 2, controlled Code(s): E11.9 - TYPE 2 DIABETES MELLITUS WITHOUT COMPLICATIONS (4) Opioid dependence Code(s): F11.20 - OPIOID DEPENDENCE, UNCOMPLICATED (5) CHF (congestive heart failure) Code(s): I50.9 - HEART FAILURE, UNSPECIFIED (6) COPD (chronic obstructive pulmonary disease) Code(s): J44.9 - CHRONIC OBSTRUCTIVE PULMONARY DISEASE, UNSPECIFIED Qualifiers: COPD type: unspecified COPD Qualified Code(s): J44.9 - Chronic obstructive pulmonary disease, unspecified (7) Diastolic dysfunction Code(s): I51.9 - HEART DISEASE, UNSPECIFIED (8) PAD (peripheral artery disease) Code(s): I73.9 - PERIPHERAL VASCULAR DISEASE, UNSPECIFIED (9) Paroxysmal atrial fibrillation Code(s): I48.0 - PAROXYSMAL ATRIAL FIBRILLATION (10) S/P aorto-bifemoral bypass surgery Code(s): Z95.828 - PRESENCE OF OTHER VASCULAR IMPLANTS AND GRAFTS (11) Shortness of breath Code(s): R06.02 - SHORTNESS OF BREATH (12) Substance abuse Code(s): F19.10 - OTHER PSYCHOACTIVE SUBSTANCE ABUSE, UNCOMPLICATED Assessment/Plan 1. PAF [id number] score of 4 on DOAC currently in sinus rhythm 2. HTN 3. Hypercholesterolemia 4. DM 5. Acute on chronic LV diastolic failure 6. COPD 7. Previous substance/Opioid abuse currently on Methadone treatment 8. Post aortic bifem bypass PLAN: 1. Continue Metoprolol and Valsartan as tolerated. Can add Calcium channel mercy to be used for added rate control 2. Continue Xarelto 3. IV diuretics and monitor renal function and electrolytes 4. Check office records. 5. Bronchodilator and O2 6. Methadone treatment Further plans are to follow Dorian Figueroa MD
--- NOTE | 2018-11-14 13:37 | PN ---
Teaching Attending Note Name of Resident: Lizett Washington ATTENDING PHYSICIAN STATEMENT I saw and evaluated the patient. I reviewed the resident's note and discussed the case with the resident. I agree with the resident's findings and plan as documented. SUBJECTIVE: Patient is comfortable today , on 2liter oxygen. wants to go home. OBJECTIVE: Vital Signs Temperature 98.4 F 11/14/18 09:00 Pulse Rate 70 11/14/18 09:00 Respiratory Rate 18 11/14/18 09:00 Blood Pressure 141/74 11/14/18 09:00 O2 Sat by Pulse Oximetry (%) 95 11/14/18 09:00 GENERAL: Awake, alert, and fully oriented, in no acute distress. HEAD: Normal with no signs of trauma. EYES: Pupils equal, round and reactive to light, extraocular movements intact, sclera anicteric, conjunctiva clear. EARS, NOSE, THROAT: Ears normal, oropharynx clear without exudates. Moist mucous membranes. NECK: Normal range of motion, supple without lymphadenopathy, JVD, or masses. LUNGS: decreased BS bl , no wheezing , and no crackles. No accessory muscle use. HEART: Regular rate and rhythm, normal S1 and S2 without murmur, rub or gallop. ABDOMEN: Soft, nontender, not distended, normoactive bowel sounds, no guarding, no rebound, no masses. EXTREMITIES: 2+ pulses, warm, well-perfused. No cyanosis. No clubbing. No peripheral edema. NEUROLOGICAL: Cranial nerves II-XII intact. Normal speech. Normal gait. PSYCHIATRIC: Cooperative. Good eye contact. Appropriate mood and affect. SKIN: Warm, dry, normal turgor, no rashes or lesions noted, normal capillary refill. CBCD WBC 9.1 K/mm3 (4.0-10.0) 11/14/18 07:11 RBC 4.08 M/mm3 (4.00-5.60) 11/14/18 07:11 Hgb 12.6 GM/dL (11.7-16.9) 11/14/18 07:11 Hct 37.8 % (35.4-49) 11/14/18 07:11 MCV 92.6 fl (80-96) 11/14/18 07:11 MCHC 33.3 g/dl (32.0-35.9) 11/14/18 07:11 RDW 15.7 % (11.9-15.9) 11/14/18 07:11 Plt Count 159 K/MM3 (134-434) D 11/14/18 07:11 MPV 10.3 fl (7.5-11.1) 11/14/18 07:11 CMP Sodium 140 mmol/L (136-145) 11/14/18 07:11 Potassium 4.3 mmol/L (3.5-5.1) 11/14/18 07:11 Chloride 100 mmol/L (98-107) 11/14/18 07:11 Carbon Dioxide 35 mmol/L (21-32) H 11/14/18 07:11 Anion Gap 5 MMOL/L (8-16) L 11/14/18 07:11 BUN 31 mg/dL (7-18) H 11/14/18 07:11 Creatinine 1.2 mg/dL (0.55-1.3) 11/14/18 07:11 Creat Clearance w eGFR 61.15 (>60) 11/14/18 07:11 Random Glucose 116 mg/dL (74-106) H 11/14/18 07:11 Calcium 8.6 mg/dL (8.5-10.1) 11/14/18 07:11 Total Bilirubin 0.7 mg/dL (0.2-1) 11/12/18 06:35 AST 31 U/L (15-37) 11/12/18 06:35 ALT 71 U/L (13-61) H 11/12/18 06:35 Alkaline Phosphatase 137 U/L (45-117) H 11/12/18 06:35 Total Protein 6.2 g/dl (6.4-8.2) L 11/12/18 06:35 Albumin 3.3 g/dl (3.4-5.0) L 11/12/18 06:35 CARDIAC ENZYMES Creatine Kinase 54 U/L (26-308) 11/11/18 12:14 Troponin I 0.07 ng/ml (0.00-0.05) H 11/11/18 12:14 Home Medications Medication Instructions Recorded Methadone [Dolophine -] 70 mg PO DAILY 09/25/17 Rivaroxaban [Xarelto -] 20 mg PO DAILY 09/25/17 Valsartan 320 mg PO HS 09/25/17 metFORMIN HCL [Glucophage -] 500 mg PO BID 09/25/17 Albuterol Sulfate Inhaler - 1 - 2 inh PO QID PRN #1 inhaler 01/26/18 [Ventolin HFA Inhaler -] Pantoprazole Sodium [Protonix -] 40 mg PO DAILY 15 Days #15 10/17/18 tablet.ec Furosemide [Lasix -] 40 mg PO DAILY #30 tablet 11/14/18 Metoprolol Tartrate [Lopressor -] 50 mg PO BID 30 Days #60 tablet 11/14/18 ASSESSMENT AND PLAN: Current Medications Generic Name Dose Route Start Last Admin Trade Name Freq PRN Reason Stop Dose Admin Albuterol Sulfate 2 puff 11/11/18 16:33 Ventolin Hfa Inhaler - IH Q6H PRN WHEEZING Furosemide 20 mg 11/12/18 06:00 11/14/18 06:00 Lasix Injection - IVPUSH 20 mg BID@0600,1400 [facility] Administration Metformin HCl 500 mg 11/12/18 16:45 11/14/18 06:00 Glucophage - PO 500 mg BIDAC [facility] Administration Methadone HCl 40 mg/ Methadone 70 mg 11/12/18 09:30 11/14/18 06:00 HCl 30 mg PO 70 mg DAILY@0600 [facility] Administration Metoprolol Tartrate 50 mg 11/11/18 22:00 11/14/18 10:30 Lopressor - PO 50 mg BID [facility] Administration Pantoprazole Sodium 40 mg 11/12/18 10:00 11/14/18 10:25 Protonix - PO 40 mg DAILY [facility] Administration Rivaroxaban 20 mg 11/12/18 18:00 11/13/18 17:09 Xarelto - PO 20 mg DAILY@1800 DOMINIC Administration Valsartan 320 mg 11/11/18 22:00 11/13/18 21:22 Diovan - PO 320 mg HS [facility]IC Administration Assessment and plan: The patient is a 63 year old male with a history of afib on metoprolol, HTN, COPD on NC O2, HLD, diastolic CHF, DM, on methadone maintenance who presents with shortness of breath and dyspnea on exertion for the past two days. #Acute on chronic diastolic CHF , will discharge the patient on lasix 40mg increased the dose from home dose 2omg , discharge patient home. # Acute COPD exacerbation: albuterol inh #Atrial fibrillation rate controlled continue Xarelto , lopressor continue #Opioid dependence on Methadone at home, needs to be verified the dose # Diabetes type 2, controlled on metformin continue # HTN controlled continue lasix/valsartan/lopressor discharge patient home.
--- NOTE | 2018-11-14 15:11 | ECHO ---
Name: MIKE MARCOS Exam:Adult Echocardiogram Study Date: 11/14/2018 08:55 AM Age: 63 yrs Reason For Study: acute CHF Height: 68 in Weight: 200 lb BSA: 2.0 m2 MMode/2D Measurements & Calculations IVSd: 0.86 cm Ao root diam: 3.5 cm LVIDd: 4.8 cm LA dimension: 4.2 cm LVIDs: 3.2 cm ACS: 1.3 cm LVPWd: 0.74 cm IVSs: 1.3 cm LVPWs: 1.3 cm EDV(Teich): 108.8 ml ESV(Teich): 41.1 ml Doppler Measurements & Calculations MV E max isai: 99.2 cm/sec Ao V2 max: 76.4 cm/sec MV A max isai: 53.1 cm/sec Ao max P.3 mmHg MV E/A: 1.9 Ao V2 mean: 60.1 cm/sec Ao mean P.6 mmHg Ao V2 VTI: 18.6 cm MR max isai: 376.3 cm/sec TR max isai: 280.5 cm/sec MR max P.8 mmHg TR max P.8 mmHg Med Peak E' Isai: 8.7 cm/sec Med E/e': 11.5 Lat Peak E' Isai: 10.1 cm/sec Lat E/e': 9.8 Procedure A complete two-dimensional transthoracic echocardiogram was performed (2D, M-mode, Doppler and color flow Doppler). Left Ventricle The left ventricle is normal in size. Left ventricular systolic function is normal. Ejection Fraction = 60- 65%. No regional wall motion abnormalities noted. Right Ventricle The right ventricle is normal size. The right ventricular systolic function is normal. Atria The left atrium is mildly dilated. Right atrial size is normal. Mitral Valve The mitral valve is normal in structure and function. There is trace mitral regurgitation. Tricuspid Valve The tricuspid valve is normal in structure and function. Pulmonary artery systolic pressure is at [address] st 40 mmHg if RA pressure is assumed 3 mmHg. Aortic Valve There is mild aortic sclerosis.;. No aortic regurgitation is present. Pulmonic Valve The pulmonic valve is not well visualized. Great Vessels The aortic root is normal size. Pericardium/Pleura There is no pericardial effusion. Interpretation Summary The left ventricle is normal in size. Left ventricular systolic function is normal. No regional wall motion abnormalities noted. Ejection Fraction = 60-65%. The right ventricular systolic function is normal. The left atrium is mildly dilated. Right atrial size is normal. There is trace mitral regurgitation. Pulmonary artery systolic pressure is at least 40 mmHg if RA pressure is assumed 3 mmHg There is mild aortic sclerosis. There is no pericardial effusion. Previous study is not available for comparison Dorian Figueroa MD 11/14/2018 03:11 PM
--- NOTE | 2018-11-14 15:40 | DS ---
Physical Exam: SUBJECTIVE: Patient seen and examined OBJECTIVE: Vital Signs Period Temp Pulse Resp BP Sys/Chatterjee Pulse Ox Last 24 Hr 97.9 F-98.4 F 70-112 18-20 114-148/67-94 95-95 PHYSICAL EXAM GENERAL: The patient is awake, alert, and fully oriented, in no acute distress. HEAD: Normal with no signs of trauma. EYES: PERRL, extraocular movements intact, sclera anicteric, conjunctiva clear. ENT: Ears normal, nares patent, oropharynx clear without exudates, moist mucous membranes. NECK: Trachea midline, full range of motion, supple. LUNGS: Breath sounds equal, clear to auscultation bilaterally, no wheezes, no crackles, no accessory muscle use. HEART: Regular rate and rhythm, S1, S2 without murmur, rub or gallop. ABDOMEN: Soft, nontender, nondistended, normoactive bowel sounds, no guarding, no rebound, no hepatosplenomegaly, no masses. EXTREMITIES: 2+ pulses, warm, well-perfused, no edema. NEUROLOGICAL: Cranial nerves II through XII grossly intact. Normal speech, gait not observed. PSYCH: Normal mood, normal affect. SKIN: Warm, dry, normal turgor, no rashes or lesions noted. LABS Laboratory Results - last 24 hr 11/13/18 11/13/18 11/14/18 15:41 21:52 05:33 WBC RBC Hgb Hct MCV MCH MCHC RDW Plt Count MPV Sodium Potassium Chloride Carbon Dioxide Anion Gap BUN Creatinine Creat Clearance w eGFR POC Glucometer 131 124 119 Random Glucose Calcium Phosphorus Magnesium 11/14/18 11/14/18 11/14/18 07:11 07:11 12:05 WBC 9.1 RBC 4.08 Hgb 12.6 Hct 37.8 MCV 92.6 MCH 30.8 MCHC 33.3 RDW 15.7 Plt Count 159 D MPV 10.3 Sodium 140 Potassium 4.3 Chloride 100 Carbon Dioxide 35 H Anion Gap 5 L BUN 31 H Creatinine 1.2 Creat Clearance w eGFR 61.15 POC Glucometer 127 Random Glucose 116 H Calcium 8.6 Phosphorus 3.9 Magnesium 2.1 HOSPITAL COURSE: Date of Admission:11/11/18 63 yo M with PMHx of afib (rate controlled on Xarelto), HTN, COPD (home O2 dep. 2L), HLD, dCHF, NIDDM, and methadone dependence who presents with shortness of breath and dyspnea on exertion for the past two days. He is also complaining of a nonproductive cough. Patient was admitted for Afib RVR, pneumonia, and COPD in this ED on 10/15. Patient was discharged on 10/17 and was started on lasix 20mg daily. Patient states he has been compliant with medications at home. Denies increase in fluid or salt intake. He states his legs are now more swollen and becomes short of breath with even minimal exertion. On arrival to the ED patient was also in Afib with RVR and was given a one time dose of cardizem. patient was started on IV lasix 20 BID and his metoprolol dose was increased from 25 to 50mg BID. he was placed on the cardiac floor- he was seen by his cam specialist who agreed with the IV lasix dosing and his breathing status improved. he got an echo of his heart done which showed a normal EF with no regional wall motion abnormalities had slightly elevated PA pressure- his weight went down; the fluid in his legs decreased and he was stable to be discharged home with 40 lasix daily in addition to the increase in his metoprolol dosing- he will be seeing cardiology within one week Date of Discharge: 11/14/18 Minutes to complete discharge: 39 Discharge Summary Reason For Visit: SHORTNESS OF BREATH/CP Current Active Problems Acute on chronic diastolic CHF (congestive heart failure) (Acute) Atrial fibrillation with rapid ventricular response (Acute) DVT prophylaxis (Acute) Diabetes type 2, controlled (Acute) Opioid dependence (Acute) Condition: Stable - Instructions Diet, Activity, Other Instructions: You came to the hospital due to worsening shortness of breath and increased leg swelling over a few day period. In addition, when you arrived to the ED your heart rate was very fast. We gave you medication to control your heart rate in addition, we gave you IV medication to decrease the swelling and improve your breathing status. Please resume all of your home medications in addition: -We increased your Metoprolol to 50mg twice a day -We also want you to take Lasix 40mg to be taken everyday Please follow up with your primary care physician within one week Please follow up with Dr. Figueroa, the cam specialist, within one week *if you begin to experience worsening leg swelling, trouble breathing, chest pains, fevers, please return to the emergency room immediately Referrals: Dorian Figueroa MD [Staff Physician] - 1 Week Disposition: HOME - Home Medications Comprehensive Discharge Medication List: Ambulatory Orders Methadone [Dolophine -] 70 mg PO DAILY 09/25/17 Rivaroxaban [Xarelto -] 20 mg PO DAILY 09/25/17 Valsartan 320 mg PO HS 09/25/17 metFORMIN HCL [Glucophage -] 500 mg PO BID 09/25/17 Albuterol Sulfate Inhaler - [Ventolin HFA Inhaler -] 1 - 2 inh PO QID PRN #1 inhaler 01/26/18 Pantoprazole Sodium [Protonix -] 40 mg PO DAILY 15 Days #15 tablet.ec 10/17/18 Furosemide [Lasix -] 40 mg PO DAILY #30 tablet 11/14/18 Metoprolol Tartrate [Lopressor -] 50 mg PO BID 30 Days #60 tablet 11/14/18 Problem List - Problems (1) Atrial fibrillation with rapid ventricular response Code(s): I48.91 - UNSPECIFIED ATRIAL FIBRILLATION (2) Diabetes type 2, controlled Code(s): E11.9 - TYPE 2 DIABETES MELLITUS WITHOUT COMPLICATIONS (3) Opioid dependence Code(s): F11.20 - OPIOID DEPENDENCE, UNCOMPLICATED This patient is new to me today: No Emergency Visit: Yes ED Registration Date: 11/11/18 Care time: The patient presented to the Emergency Department on the above date and was hospitalized for further evaluation of their emergent condition. Critical Care patient: No - Discharge Referral Referred to [facility] No
== END 2018-11-14 16:29 | disposition home or self-care (01) | DRG 194 ==
LOC: JER 11:07 → JERBED 15:31 → OBSVTOIN 16:28 → J4W 22:37
PROVIDERS: ADMIT Internal Medicine; ATTEND Internal Medicine
DX: I11.0 Hypertensive heart disease with heart failure (principal); I50.33 Acute on chronic diastolic (congestive) heart failure; F11.20 Opioid dependence, uncomplicated; E78.5 Hyperlipidemia, unspecified; E11.9 Type 2 diabetes mellitus without complications; J44.1 Chronic obstructive pulmonary disease with (acute) exacerbation; I48.0 Paroxysmal atrial fibrillation
CPT/HCPCS: 36415; 71045-TC-FY; 80048; 80053; 82550; 82962; 83735; 83880; 84100; 84439; 84443; 84484; 85025; 85027; 85610; 85730; 93005; 93010; 93306-TC; 99285-25; G0378

== ENCOUNTER 2018-12-08 06:46 | Inpatient (IN) | payer OTHER ==
--- NOTE | 2018-12-08 07:56 | PDOC ---
History of Present Illness - General Chief Complaint: Congestive Heart Failure Stated Complaint: SHORTNESSS OF BREATH Time Seen by Provider: 12/08/18 07:55 - History of Present Illness Initial Comments: 63yo M with PMH of diastolic CHF, AFib on Xarelto, COPD on 2L O2 at home, DM, Methadone dependence presenting with shortness of breath. Per chart review, patient was admitted to the hospital last month and discharged on 11/14. Patient states since that time he has had worsening dyspnea on exertion. While he used to be able to walk outside from his home, he is no longer able to walk two or three steps without feeling short of breath. Patient reports full adherence to his medications. He does not restrict his fluid intake, but does not note an overt increase: "I drink a lot of fluids." Patient takes efforts to avoid salt in his diet. He has had a cough for about a week productive of yellow-brown sputum. When asked if he feels this is a COPD exacerbation, patient says it may be. He reports a subjective fever last night which improved with tylenol. Patient current endorses a burning feeling in his chest which he attributes to acid reflux and requested treatment for this. He also had an isolated episode of vomiting about 3-4 days ago, possibly due to something he ate. No recent sick contacts or travel. PCP: Dr. Ricardo Laguerre Cardio: Dr. Burns Past History - Past Medical History Allergies/Adverse Reactions: Allergies Allergy/AdvReac Type Severity Reaction Status Date / Time Penicillins Allergy Verified 12/08/18 08:00 Home Medications: Ambulatory Orders Methadone [Dolophine -] 70 mg PO DAILY 09/25/17 Rivaroxaban [Xarelto -] 20 mg PO DAILY 09/25/17 Valsartan 320 mg PO HS 09/25/17 metFORMIN HCL [Glucophage -] 500 mg PO BID 09/25/17 Albuterol Sulfate Inhaler - [Ventolin HFA Inhaler -] 1 - 2 inh PO QID PRN #1 inhaler 01/26/18 Pantoprazole Sodium [Protonix -] 40 mg PO DAILY 15 Days #15 tablet.ec 10/17/18 Furosemide [Lasix -] 40 mg PO DAILY #30 tablet 11/14/18 Metoprolol Tartrate [Lopressor -] 50 mg PO BID 30 Days #60 tablet 11/14/18 Cardiac Disorders: Yes (CHF o2 dependent) COPD: Yes CHF: Yes Diabetes: Yes HTN: Yes Hypercholesterolemia: Yes - Surgical History Abdominal Surgery: Yes (AAA repair) Cardiac Surgery: Yes - Immunization History Immunization Up to Date: No - Suicide/Smoking/Psychosocial Hx Smoking History: Former smoker Have you smoked in the past 12 months: No Number of Cigarettes Smoked Daily: 10 If you are a former smoker, when did you quit?: 2 years Information on smoking cessation initiated: No Hx Alcohol Use: No Drug/Substance Use Hx: No Substance Use Type: Heroin Hx Substance Use Treatment: Yes Review of Systems - Review of Systems Comments:: Constitutional: +fever, no chills HEENT: no throat pain, no dysphagia Cardiovascular: no chest pain, no palpitations Respiratory: +cough, +shortness of breath Gastrointestinal: no abdominal pain, +constipation Genitourinary: no dysuria, no frequency Musculoskeletal: no myalgia, no arthralgia Skin: no rash, no itching Neurologic: no headache, no weakness *Physical Exam - Vital Signs Last Vital Signs Temp Pulse Resp BP Pulse Ox 98.9 F 104 H 22 H 124/92 98 12/08/18 07:15 12/08/18 07:15 12/08/18 07:15 12/08/18 07:15 12/08/18 07:15 - Physical Exam Comments: General: Awake, alert, and fully oriented, in no acute distress Head: No signs of trauma Eyes: EOMI, sclera anicteric ENT: Moist mucus membranes Neck: Normal ROM, supple Lungs: Diffuse wheezes present bilaterally, Rales present on the upper left Cardio: Irregular rate, S1 and S2 present Abdomen: Soft, nontender Extremities: Normal range of motion, Distal pulses present, 1+ pitting edema in BLE SKIN: Warm, Dry, normal turgor Neurologic: Cranial nerves II through XII grossly intact. Normal speech ED Treatment Course - LABORATORY CBC & Chemistry Diagram: 12/08/18 09:26 12/08/18 09:29 Medical Decision Making - Medical Decision Making 63yo M with PMH of diastolic CHF, AFib on Xarelto, COPD on 2L O2 at home, DM, Methadone dependence presenting with shortness of breath. DDX including but not limited to ACS, CHF exacerbation, COPD exacerbation, PNA Rectal temp 99.6 Vitals significant for tachycardia, HO=479, and tachypnea (RR=22) CBC, CMP, BNP, Tpn CXR EKG: rate 128, QTc 458, Afib with RVR 3 duonebs for wheezes 40 prednisone po 20 protonix for acid reflux symptoms, per patient request 12/08/18 08:43 Chemistries hemolyzed, re-ordered and re-drawn US-guided IV in left AC 12/08/18 09:30 Patient feeling better after receiving breathing treatments Pulse palpated for one minute with rate of 80 BNP~5500 Tpn negative 40 Lasix given CXR without acute pathology per radiology report Will cover with azithromycin 500mg Plan for admission for CHF exacerbation and COPD exacerbation 12/08/18 10:47 Patient's daily methadone ordered after verifying dose with [facility] Paging inpatient team for admission 12/08/18 10:54 Patient in afib with RVR treated with Cardizem 10mg 12/08/18 12:05 Rate still in the 130s-140s Another 10mg Cardizem ordered 12/08/18 12:[address] Naranjo who accepted patient for admission under Dr. Mcbride 12/08/18 12:56 *DC/Admit/Observation/Transfer Diagnosis at time of Disposition: Atrial fibrillation with rapid ventricular response, Acute on chronic diastolic CHF (congestive heart failure), COPD exacerbation - Discharge Dispostion Condition at time of disposition: Guarded Decision to Admit order: Yes - Referrals - Patient Instructions - Post Discharge Activity
--- NOTE | 2018-12-08 07:58 | PDOC ---
Attending Attestation - HPI HPI: 12/08/18 10:08 The patient is a 63-year-old male, with a past medical history of HTN, HLD, DM, afib (on Xarelto), CHF, COPD (on 2L O2 at home), methadone dependence, who presents to the ED for evaluation of shortness of breath. The patient was admitted to the hospital 1 month ago and was discharged on 11/14/18. Since then the patient reports increased dyspnea on exertion. He is unable to walk 2-3 steps without feeling short of breath. The symptoms he is experiencing are similar to his previous CHF and COPD exacerbations. He also reports 1 week of a cough productive of yellow/brown sputum and experiencing a subjective fever last night, which resolved after taking Tylenol. The patient also endorses a burning sensation in his chest that he believes is due to his acid reflux and an episode of vomiting 3-4 days ago. Patient has not vomited since. The patient denies any nausea, vomiting, diarrhea, constipation, or abdominal pain. Denies any palpitations. Denies any urinary symptoms. Allergies: Penicillins Social History: Former smoker (quit 2 years ago). Surgical History: AAA repair. PCP: Dr. Ricardo Laguerre Cardiology: Dr. Burns - Physicial Exam PE: 12/08/18 10:12 GENERAL: (+)Mild respiratory distress, speaking in 3-4 word sentences. Awake, alert, and fully oriented HEAD: No signs of trauma EYES: PERRLA, EOMI, sclera anicteric, conjunctiva clear ENT: Auricles normal inspection, hearing grossly normal, nares patent, oropharynx clear without exudates. Moist mucosa NECK: Normal ROM, supple, no lymphadenopathy, JVD, or masses LUNGS:(+)Mildly tachypneic, wheezing diffuse bilaterally. No crackles HEART: Regular rate and rhythm, normal S1 and S2, no murmurs, rubs or gallops ABDOMEN: Soft, nontender, normoactive bowel sounds. No guarding, no rebound. No masses EXTREMITIES:(+)Multiple ulcerations to B/L LE. Normal range of motion, no edema. No clubbing or cyanosis. No cords. NEUROLOGICAL: Cranial nerves II through XII grossly intact. Normal speech, normal gait SKIN: Warm, Dry, normal turgor. <Mera Melendez - Last Filed: 12/09/18 10:08> - Resident Resident Name: Nisreen Coombs - [facility] HPI: 12/08/18 09:32 Pt presents to the ED complaining of shortness of breath and CURRY consistent with prior CHF and COPD exacerbations. Patient has a history of - Medical Decision Making 12/10/18 16:10 Pt presents to the ED complaining of worsening shortness of breath and CURRY. History of severe COPD, chronically on home O2 and CHF. Differential included CHF exacerbation, COPD exacerbation, less likely PNA or PE. CXR is unchanged feels improved after nebs. Labs show elevated BNP. Patient had rapid a fib, treated with cardizem. Will admit to medicine for COPD/CHF exacerbation. Will treat with antibipotics. 12/10/18 16:11 <Brenda Casanova - Last Filed: 12/10/18 16:13> Attestations - Attestations 12/08/18 10:19 Documentation prepared by Mera Melendez, acting as medical affairs manager for Brenda Casanova MD. <Mera Melendez - Last Filed: 12/09/18 10:08>
[2018-12-08] MEDS ORDERED: PANTOPRAZOLE 20 MG TABLET (FP) PO ONE (08:26)
[2018-12-08] MEDS ORDERED: ALBUTEROL SO4 2.5/IPRATROPIUM 0.5 INH SOL 3 ML VIAL.NEB. NEB ONE ×2 (08:26→08:57)
[2018-12-08] MEDS ORDERED: predniSONE 20 MG TABLET (UD) PO ONE (08:26)
[2018-12-08] MEDS ORDERED: predniSONE 20 MG TABLET (UD) ONE (08:57)
[2018-12-08] MEDS ORDERED: PANTOPRAZOLE 40 MG TABLET (FP) ONE (08:58)
[2018-12-08 09:31] LABS: BASO % 0.4 % (0-2.0); EOS % 0.4 % (0-4.5); HEMATOCRIT 40.1 % (35.4-49); HEMOGLOBIN 12.8 GM/dL (11.7-16.9); LYMPH % 5.8 % (8-40); MCH 30.3 pg (25.7-33.7); MCHC 32.1 g/dl (32.0-35.9); MEAN CELL VOLUME 94.5 fl (80-96); MEAN PLT VOLUME 9.8 fl (7.5-11.1); MONO % 10.9 % (3.8-10.2); NEUT % 82.5 % (42.8-82.8); PLATELET COUNT 171 K/MM3 (134-434); RBC 4.24 M/mm3 (4.00-5.60); WHITE BLOOD COUNT 14.7 K/mm3 (4.0-10.0)
[2018-12-08 10:12] LABS: ALBUMIN 3.3 g/dl (3.4-5.0); ALK PHOS 164 U/L (45-117); ANION GAP 6 MMOL/L (8-16); BILIRUBIN,TOTAL 0.8 mg/dL (0.2-1); BLOOD UREA NITROGEN 22 mg/dL (7-18); CALCIUM 8.9 mg/dL (8.5-10.1); CHLORIDE 101 mmol/L (98-107); CO2 32 mmol/L (21-32); GLUCOSE,RANDOM 154 mg/dL (74-106); N-TERMINAL BNP 5562.2 pg/ml (5-125); POTASSIUM 4.7 mmol/L (3.5-5.1); SGOT/AST 32 U/L (15-37); SGPT/ALT 46 U/L (13-61); SODIUM 139 mmol/L (136-145); TOT PROT 6.9 g/dl (6.4-8.2)
[2018-12-08] MEDS ORDERED: METHADONE HCL 10 MG TABLET PO ONE (10:19)
[2018-12-08] MEDS ORDERED: AZITHROMYCIN IVPB 500 MG in DEXTROSE 5%-WATER - 250 ML IVPB ONE (10:46)
[2018-12-08] MEDS: FUROSEMIDE 40 MG/4 ML INJECTABLE VIAL IVPUSH ONE ×2 (11:18→12:12)
[2018-12-08] MEDS ORDERED: FUROSEMIDE 40 MG/4 ML INJECTABLE VIAL ONE ×2 (11:18→12:05)
[2018-12-08] MEDS ORDERED: AZITHROMYCIN IVPB 500 MG/250 ML BAG IVPB ONE (11:18)
[2018-12-08] MEDS ORDERED: dilTIAZem HCL 50 MG/10 ML - 10 ML VIAL IVPUSH ONE ×2 (11:44→12:39)
[2018-12-08] MEDS ORDERED: METHADONE 40 MG, METHADONE 30 MG PO ONE (12:00)
[2018-12-08] MEDS ORDERED: METHADONE HCL 40 MG DISPERSABLE TABLET ONE (12:04)
[2018-12-08] MEDS ORDERED: METHADONE HCL 10 MG TABLET ONE (12:04)
[2018-12-08] MEDS ORDERED: dilTIAZem HCL 125 MG/25 ML - 25 ML VIAL ONE ×3 (12:05→14:11)
--- NOTE | 2018-12-08 12:56 | HP ---
CHIEF COMPLAINT: PCP: Dr. Ricardo Laguerre Cardio: Dr. Burns HISTORY OF PRESENT ILLNESS: This is a 63 yo M with PMH of HFPEF, pulm HTN, persistent AF on Xarelto, COPD on 2L O2, DM, Methadone dependence, who presents due to exercise intolerance, palpitations, sob and productive cough x 1w. He was recently discharged on after treatment for CHF and COPD exacerbation; at that time he was started on home lasix and had his metoprolol increased. He had worsening sob ever since discharge, lately NYHA class III. He increased his home O2 to 3 L. He has productive cough with yellow sputum, rhinorrhea, subjective fever and mid orthopnea x 1w. He also reports epgastric burning today similar to his usual gerd. He denies weight gain or increase in LE edema. Denies sick contacts, denies increased salt or water intake. reports compliance with home meds. Last TTE 11/14: normal EF + pulm HTN ER course was notable for: (1)cxr, labs (2)cardizem, nebs, prednisone Recent Travel: denies PAST MEDICAL HISTORY: as above PAST SURGICAL HISTORY: as above Social History: Smoking: past Alcohol:denies Drugs: denies Family History: father OR Allergies Penicillins Allergy (Verified 12/08/18 08:00) HOME MEDICATIONS: Home Medications Medication Instructions Recorded Methadone [Dolophine -] 70 mg PO DAILY 09/25/17 Rivaroxaban [Xarelto -] 20 mg PO DAILY 09/25/17 Valsartan 320 mg PO HS 09/25/17 metFORMIN HCL [Glucophage -] 500 mg PO BID 09/25/17 Albuterol Sulfate Inhaler - 1 - 2 inh PO QID PRN #1 inhaler 01/26/18 [Ventolin HFA Inhaler -] Pantoprazole Sodium [Protonix -] 40 mg PO DAILY 15 Days #15 10/17/18 tablet.ec Furosemide [Lasix -] 40 mg PO DAILY #30 tablet 11/14/18 Metoprolol Tartrate [Lopressor -] 50 mg PO BID 30 Days #60 tablet 11/14/18 REVIEW OF SYSTEMS CONSTITUTIONAL: Absent: chills, diaphoresis HEENT: Absent: throat pain, difficulty swallowing CARDIOVASCULAR: Absent: syncope, lightheadedness, peripheral edema RESPIRATORY: Absent: stridor, hemoptysis GASTROINTESTINAL: Absent: abdominal pain, abdominal distension, nausea, diarrhea, constipation, melena, hematochezia GENITOURINARY: Absent: dysuria MUSCULOSKELETAL: Absent: back pain, neck pain SKIN: Absent: rash, itching, pallor HEMATOLOGIC/IMMUNOLOGIC: Absent: easy bleeding, easy bruising ENDOCRINE: Absent:heat intolerance, cold intolerance NEUROLOGIC: Absent: headache, focal weakness or paresthesias PSYCHIATRIC: Absent: anxiety, depression PHYSICAL EXAMINATION Vital Signs - 24 hr 12/08/18 12/08/18 12/08/18 07:15 08:00 12:12 Temperature 98.9 F Pulse Rate 104 H Pulse Rate [ 140 H Apical] Respiratory 22 H 20 Rate Blood Pressure 124/92 Blood Pressure 151/102 H [Right Arm] O2 Sat by Pulse 98 98 98 Oximetry (%) 12/08/18 12:17 Temperature Pulse Rate Pulse Rate [ 145 H Apical] Respiratory Rate Blood Pressure Blood Pressure 119/93 [Right Arm] O2 Sat by Pulse Oximetry (%) GENERAL: Awake, alert, and fully oriented, in no acute distress. HEAD: Normal with no signs of trauma. EYES: Pupils equal, round and reactive to light, extraocular movements intact, sclera anicteric, conjunctiva clear. EARS, NOSE, THROAT: Moist mucous membranes. NECK: Normal range of motion, supple +JVD at 30 degrees recline LUNGS: diffusely restricted breth sounds, end expiratory wheezes HEART: irregularly irregular, tachy, s1s2 ABDOMEN: Soft, nontender, not distended, normoactive bowel sounds, no guarding, no rebound, no masses. MUSCULOSKELETAL: No CVA tenderness. UPPER EXTREMITIES: 2+ pulses, warm, well-perfused. No peripheral edema. LOWER EXTREMITIES: warm, well-perfused. No calf tenderness. 1+ peripheral edema but wrinkles skin, some stasis changes on calves. NEUROLOGICAL: Cranial nerves II-XII grossly intact. Normal speech. PSYCHIATRIC: Cooperative. Good eye contact. Appropriate mood and affect. SKIN: Warm, dry Laboratory Results - last 24 hr 12/08/18 12/08/18 12/08/18 08:50 09:26 09:29 WBC 14.7 H RBC 4.24 Hgb 12.8 Hct 40.1 MCV 94.5 MCH 30.3 MCHC 32.1 RDW 16.0 H Plt Count 171 MPV 9.8 Absolute Neuts (auto) 12.2 H Neutrophils % 82.5 Lymphocytes % 5.8 L D Monocytes % 10.9 H Eosinophils % 0.4 Basophils % 0.4 Nucleated RBC % 0 Sodium Cancelled 139 Potassium Cancelled 4.7 Chloride Cancelled 101 Carbon Dioxide Cancelled 32 Anion Gap Cancelled 6 L BUN Cancelled 22 H Creatinine Cancelled 1.0 Creat Clearance w eGFR Cancelled 75.47 Random Glucose Cancelled 154 H Calcium Cancelled 8.9 Total Bilirubin Cancelled 0.8 AST Cancelled 32 ALT Cancelled 46 Alkaline Phosphatase Cancelled 164 H Troponin I Cancelled < 0.02 B-Natriuretic Peptide Cancelled 5562.2 H Total Protein Cancelled 6.9 Albumin Cancelled 3.3 L ASSESSMENT/PLAN: This is a 63 yo M with PMH of HFPEF, pulm HTN, persistent AF on Xarelto, COPD on 2L O2, DM, Methadone dependence, who presents due to exercise intolerance, palpitations, sob and productive cough x 1w. COPD exacerbation AF RVR Acute on chonic CHF exacerbation pulm HTN DM methadone dependance GERD -patient appears to have both syptoms of copd exacerbation and chf exacerbation ; copd exacerbation may have precipitated af rvr, whihcin turn decompensated CHF ; similar clinical picture to last admission -cxr appears congested -EKG AF RVR no changes from past strain -supplemental O2, donebs, symbicort, medrol, azithro -rate control PRN cardizem push continue PO lopressor 50 BID, consider increasing dose. -IV lasix 40 D -daily cxr, stric I and O -daily ekg for QTc monitoring -continue xarelto -f/u trops -tele monitoring -cardio consult -continue metformin, BGM q4h -maalox, ppi -recommend sleep study -f/u TFTs, lytes, lipid panel, A1c Problem List - Problem (1) Acute on chronic diastolic CHF (congestive heart failure) Code(s): I50.33 - ACUTE ON CHRONIC DIASTOLIC (CONGESTIVE) HEART FAILURE (2) Atrial fibrillation with rapid ventricular response Code(s): I48.91 - UNSPECIFIED ATRIAL FIBRILLATION (3) Atrial fibrillation, rapid Code(s): I48.91 - UNSPECIFIED ATRIAL FIBRILLATION (4) CHF (congestive heart failure) Code(s): I50.9 - HEART FAILURE, UNSPECIFIED (5) COPD (chronic obstructive pulmonary disease) Code(s): J44.9 - CHRONIC OBSTRUCTIVE PULMONARY DISEASE, UNSPECIFIED Qualifiers: COPD type: unspecified COPD Qualified Code(s): J44.9 - Chronic obstructive pulmonary disease, unspecified (6) COPD exacerbation Code(s): J44.1 - CHRONIC OBSTRUCTIVE PULMONARY DISEASE W (ACUTE) EXACERBATION (7) Chest pain Code(s): R07.9 - CHEST PAIN, UNSPECIFIED Qualifiers: Chest pain type: precordial pain Qualified Code(s): R07.2 - Precordial pain (8) Diabetes type 2, controlled Code(s): E11.9 - TYPE 2 DIABETES MELLITUS WITHOUT COMPLICATIONS (9) Diastolic dysfunction Code(s): I51.9 - HEART DISEASE, UNSPECIFIED (10) Methadone dependence Code(s): F11.20 - OPIOID DEPENDENCE, UNCOMPLICATED (11) PAD (peripheral artery disease) Code(s): I73.9 - PERIPHERAL VASCULAR DISEASE, UNSPECIFIED Visit type - Emergency Visit Emergency Visit: Yes ED Registration Date: 12/08/18 Care time: The patient presented to the Emergency Department on the above date and was hospitalized for further evaluation of their emergent condition. - New Patient This patient is new to me today: Yes Date on this admission: 12/09/18 - Critical Care Critical Care patient: No
[2018-12-08] MEDS ORDERED: ALBUTEROL SO4 2.5/IPRATROPIUM 0.5 INH SOL 3 ML VIAL.NEB. NEB PRN (13:39)
[2018-12-08] MEDS ORDERED: dilTIAZem HCL 50 MG/10 ML - 10 ML VIAL IVPUSH PRN (13:42)
[2018-12-08] MEDS ORDERED: dilTIAZem HCL 50 MG/10 ML - 10 ML VIAL IVPUSH STA (13:54)
[2018-12-08] MEDS ORDERED: MAG HYDROX/AL HYDROX/SIMETH -MYLANTA- ORAL SUSPENSION PO SCH (14:00)
[2018-12-08] MEDS ORDERED: MAG HYDROX/AL HYDROX/SIMETH 30 ML UNIT-DOSE CUP ONE (14:12)
[2018-12-08] MEDS: dilTIAZem HCL 30 MG TABLET (FP) PO SCH ×3 (14:17→23:10)
[2018-12-08 14:51] LABS: CHOLESTEROL 112 mg/dL (50-200); HDL CHOLESTEROL 51 mg/dL (40-60); TRIGLYCERIDES 67 mg/dL (0-150)
[2018-12-08] MEDS ORDERED: metFORMIN HCL 500 MG TABLET (FP) PO SCH (16:30)
--- NOTE | 2018-12-08 16:35 | EKG ---
Test Reason : Blood Pressure : / mmHG Vent. Rate : 128 BPM Atrial Rate : 441 BPM P-R Int : 000 ms QRS Dur : 068 ms QT Int : 314 ms P-R-T Axes : 000 077 -76 degrees QTc Int : 458 ms ATRIAL FIBRILLATION WITH RAPID VENTRICULAR RESPONSE ABNORMAL ECG WHEN COMPARED WITH ECG OF 11-NOV-2018 13:52, ATRIAL FIBRILLATION HAS REPLACED SINUS RHYTHM VENT. RATE HAS INCREASED BY 66 BPM INVERTED T WAVES HAVE REPLACED NONSPECIFIC T WAVE ABNORMALITY IN INFERIOR LEADS NONSPECIFIC T WAVE ABNORMALITY, IMPROVED IN LATERAL LEADS Confirmed by MIGUE DALE MD ([id number]) on 12/08/2018 4:35:26 PM Referred By: Confirmed By:MIGUE DALE MD
--- NOTE | 2018-12-08 18:27 | PN ---
Teaching Attending Note Name of Resident: Toshia Naranjo ATTENDING PHYSICIAN STATEMENT I saw and evaluated the patient. I reviewed the resident's note and discussed the case with the resident. I agree with the resident's findings and plan as documented. SUBJECTIVE: Complains of 1 week history of increasing SOB, cough productive of green sputum, palpitations. No chest pain, lightheadedness, dizziness, orthopnea , PND. Reports improvement in LE edema over past few weeks. OBJECTIVE: Afebrile, Hemodynamically Stable. Last Vital Signs Temp Pulse Resp BP Pulse Ox 98.0 F 98 H 20 125/78 94 L 12/08/18 15:27 12/08/18 15:27 12/08/18 15:27 12/08/18 15:27 12/08/18 15:27 HEENT - Atraumatic, normocephalic. Heart - S1, S2, RRR Lungs- decreased air entry bibasally with exp wheeze Abdomen - Soft, non-tender. Bowel Sounds normal. Extremities- bilateral edema, some excoriation hastings Neuro -AAO x 3. Tone/Power normal all extremities. Laboratory Results - last 24 hr 12/08/18 12/08/18 12/08/18 08:50 09:26 09:29 WBC 14.7 H RBC 4.24 Hgb 12.8 Hct 40.1 MCV 94.5 MCH 30.3 MCHC 32.1 RDW 16.0 H Plt Count 171 MPV 9.8 Absolute Neuts (auto) 12.2 H Neutrophils % 82.5 Lymphocytes % 5.8 L D Monocytes % 10.9 H Eosinophils % 0.4 Basophils % 0.4 Nucleated RBC % 0 Sodium Cancelled 139 Potassium Cancelled 4.7 Chloride Cancelled 101 Carbon Dioxide Cancelled 32 Anion Gap Cancelled 6 L BUN Cancelled 22 H Creatinine Cancelled 1.0 Creat Clearance w eGFR Cancelled 75.47 Random Glucose Cancelled 154 H Hemoglobin A1c % Calcium Cancelled 8.9 Total Bilirubin Cancelled 0.8 AST Cancelled 32 ALT Cancelled 46 Alkaline Phosphatase Cancelled 164 H Troponin I Cancelled < 0.02 B-Natriuretic Peptide Cancelled 5562.2 H Total Protein Cancelled 6.9 Albumin Cancelled 3.3 L Triglycerides 67 Cholesterol 112 Total LDL Cholesterol 56 HDL Cholesterol 51 TSH 0.36 D 12/08/18 12/08/18 13:38 14:30 WBC RBC Hgb Hct MCV MCH MCHC RDW Plt Count MPV Absolute Neuts (auto) Neutrophils % Lymphocytes % Monocytes % Eosinophils % Basophils % Nucleated RBC % Sodium Potassium Chloride Carbon Dioxide Anion Gap BUN Creatinine Creat Clearance w eGFR Random Glucose Hemoglobin A1c % 6.5 H Calcium Total Bilirubin AST ALT Alkaline Phosphatase Troponin I < 0.02 B-Natriuretic Peptide Total Protein Albumin Triglycerides Cholesterol Total LDL Cholesterol HDL Cholesterol TSH Current Medications Generic Name Dose Route Start Last Admin Trade Name Freq PRN Reason Stop Dose Admin Al Hydroxide/Mg Hydroxide 30 ml 12/08/18 14:00 12/08/18 14:17 Mylanta Suspension - PO 30 ml TID [facility] Administration Albuterol/Ipratropium 1 amp 12/08/18 13:58 Duoneb - NEB Q4H PRN SHORTNESS OF BREATH Budesonide/Formoterol Fumarate 2 puff 12/08/18 22:00 Symbicort 160/4.5mcg - IH BID [facility] Diltiazem HCl 30 mg 12/08/18 13:56 12/08/18 14:17 Cardizem - PO 30 mg Q6HPO [facility] Administration Furosemide 40 mg 12/09/18 10:00 Lasix Injection - IVPUSH DAILY [facility] Azithromycin 250 mg/ Dextrose 250 mls @ 250 mls/hr 12/09/18 10:00 IVPB DAILY [facility] Methadone HCl 70 mg 12/09/18 10:00 Dolophine - PO DAILY [facility] Methylprednisolone Sodium Succinate 40 mg 12/08/18 18:00 Solu-Medrol - IVPUSH Q8H-IV [facility] Metoprolol Tartrate 50 mg 12/08/18 22:00 Lopressor - PO BID [facility] Pantoprazole Sodium 40 mg 12/09/18 10:00 Protonix - PO DAILY [facility] Rivaroxaban 20 mg 12/08/18 18:00 Xarelto - PO DAILY@1800 [facility] ASSESSMENT AND PLAN: 63 year old male with Chronic Systolic HF, Pulmonary HTN, Atrial Fibrillation on Xarelto, CRF sec to COPD on 2L O2, DM 2, 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 No chest pain, hemoptysis, fever, chills. He was recently discharged 11/14/18 after admission for COPD and CHF exacerbations. 1. Acute on Chronic Respiratory Failure secondary to Acute Exacerbation COPD CXR - no infiltrate. Continue supplemental O2, Bronchodilator Nebs, Azithromycin, IV Solumedrol. Monitor respiratory status. Flu swab requested. 2. Atrial Fibrillation with RVR ECG - Atrial Fibrillation, RVR, QTc 458 TropI neg, currently asymptomatic Gven IV cardizem and started on oral cardizem in addition to his regular Metoprolol. 3. Chronic Diastolic CHF No convincing evidence of acute exacerbation. Received IV Lasix in ED. Continue home dose oral Lasix for now. BNP elevated, but less than on prior admission. CXR - no congestion/effusion Will complare current weight with weight on recent discharge I/Os. 4. Pulmonary HTN - on home O2. 5. DM 2 - maintain on sliding scale. 6. Hx Substance/Opiate abuse - on Methadone. 7. GERD - started on PPI as he complains of some epigastric burning. DVT Px - on Xarelto
[2018-12-08] MEDS ORDERED: dilTIAZem HCL 30 MG TABLET (FP) ONE (18:33)
[2018-12-08] MEDS ORDERED: metFORMIN HCL 500 MG TABLET (FP) ONE (18:33)
[2018-12-08] MEDS ORDERED: methylPREDNISolone NA SUCC 40 MG/1 ML VIAL ONE ×2 (18:34→18:38)
[2018-12-08] MEDS ORDERED: PT OWN MED DRAWER 7, Y5N ONE ×2 (18:34→21:22)
[2018-12-08] MEDS: methylPREDNISolone NA SUCC 40 MG/1 ML VIAL IVPUSH SCH (18:36)
[2018-12-08] MEDS: RIVAROXABAN 20 MG TABLET PO SCH (19:01)
[2018-12-08 20:39] VITALS: BMI 30.3
[2018-12-08] MEDS: MAG HYDROX/AL HYDROX/SIMETH 30 ML UNIT-DOSE CUP PO SCH (21:32)
[2018-12-08] MEDS: METOPROLOL TARTRATE 50 MG TABLET (FP) PO SCH (21:32)
[2018-12-08] MEDS: INSULIN SLIDING SCALE (NOVOLOG) 1 VIAL SQ SCH (21:32)
[2018-12-08] MEDS: BUDESONIDE/FORMETEROL FUMARATE 160/4.5 mcg INHALER IH SCH (21:49)
[2018-12-09] MEDS: methylPREDNISolone NA SUCC 40 MG/1 ML VIAL IVPUSH SCH ×3 (02:26→17:02)
[2018-12-09] MEDS: dilTIAZem HCL 30 MG TABLET (FP) PO SCH (05:25)
[2018-12-09] MEDS: MAG HYDROX/AL HYDROX/SIMETH 30 ML UNIT-DOSE CUP PO SCH ×3 (05:25→22:46)
[2018-12-09 05:57] LABS: BASO % 0.1 % (0-2.0); HEMATOCRIT 35.3 % (35.4-49); HEMOGLOBIN 11.4 GM/dL (11.7-16.9); LYMPH % 3.4 % (8-40); MCH 30.4 pg (25.7-33.7); MCHC 32.2 g/dl (32.0-35.9); MEAN CELL VOLUME 94.2 fl (80-96); MEAN PLT VOLUME 9.9 fl (7.5-11.1); MONO % 4.1 % (3.8-10.2); NEUT % 92.4 % (42.8-82.8); PLATELET COUNT 172 K/MM3 (134-434); RBC 3.75 M/mm3 (4.00-5.60); RDW 15.7 % (11.9-15.9); WHITE BLOOD COUNT 13.8 K/mm3 (4.0-10.0)
[2018-12-09] MEDS: INSULIN SLIDING SCALE (NOVOLOG) 1 VIAL SQ SCH ×4 (06:28→22:45)
[2018-12-09 06:40] LABS: ALBUMIN 2.8 g/dl (3.4-5.0); ALK PHOS 125 U/L (45-117); ANION GAP 4 MMOL/L (8-16); BILIRUBIN,TOTAL 0.4 mg/dL (0.2-1); BLOOD UREA NITROGEN 30 mg/dL (7-18); CALCIUM 8.9 mg/dL (8.5-10.1); CHLORIDE 99 mmol/L (98-107); CO2 32 mmol/L (21-32); CREATININE 1.1 mg/dL (0.55-1.3); GLUCOSE,RANDOM 219 mg/dL (74-106); MAGNESIUM 2.3 mg/dL (1.8-2.4); PHOSPHOROUS 2.7 mg/dL (2.5-4.9); POTASSIUM 5.1 mmol/L (3.5-5.1); SGOT/AST 22 U/L (15-37); SGPT/ALT 35 U/L (13-61); SODIUM 135 mmol/L (136-145); TOT PROT 6.2 g/dl (6.4-8.2)
[2018-12-09] MEDS ORDERED: METHADONE HCL 10 MG TABLET ONE (09:28)
[2018-12-09] MEDS ORDERED: METHADONE HCL 40 MG DISPERSABLE TABLET ONE (09:28)
[2018-12-09] MEDS: FUROSEMIDE 40 MG TABLET (FP) PO SCH (09:51)
[2018-12-09] MEDS: METOPROLOL TARTRATE 50 MG TABLET (FP) PO SCH ×2 (09:51→22:45)
[2018-12-09] MEDS: PANTOPRAZOLE 40 MG TABLET (FP) PO SCH (09:52)
[2018-12-09] MEDS: METHADONE 40 MG, METHADONE 30 MG PO SCH (09:52)
[2018-12-09] MEDS ORDERED: METHADONE HCL 40 MG DISPERSABLE TABLET PO SCH (10:00)
[2018-12-09] MEDS ORDERED: FUROSEMIDE 40 MG/4 ML INJECTABLE VIAL IVPUSH SCH (10:00)
[2018-12-09] MEDS: BUDESONIDE/FORMETEROL FUMARATE 160/4.5 mcg INHALER IH SCH ×2 (10:02→22:48)
--- NOTE | 2018-12-09 10:05 | CON.CARD ---
Consult Consult Specialty:: Cardiology Referred by:: Hospitalist Medicine Reason for Consultation:: PAF with RVR - History of Present Illness Chief Complaint: Dyspnea, cough History of Present Illness: Patient is a 63 year old male with underlying history of atrial fibrillation on NOAC (Eliquis), diastolic heart failure, hypertension, COPD on 2L home O2, hyperlipidemia, PAD with history of venous ulceration, opioid dependence (on Methadone for previous Heroine use), PAD s/p aorto-bifemoral bypass admitted through ED with worsening shortness of breath on exertion and productive cough productive of green sputum. He denies palpitations, near or true syncope, chest pain, LE edema, paroxysmal nocturnal dyspnea or orthopnea. Found to be in rapid afib rate-controlled with IV Cardizem. - History Source History Provided By: Patient Limitations to Obtaining History: No Limitations - Past Medical History Cardio/Vascular: Yes: AFIB, CHF, HTN, Hyperlipdemia Pulmonary: Yes: COPD Psych: Yes: Addictions, Depression Endocrine: Yes: Diabetes Mellitus - Past Surgical History Past Surgical History: Yes: Bypass (Abdominal aorta) - Alcohol/Substance Use Hx Alcohol Use: No History of Substance Use: reports: Heroin - Smoking History Smoking history: Former smoker Have you smoked in the past 12 months: No Aproximately how many cigarettes per day: 10 If you are a former smoker, when did you quit?: 2 years - Social History ADL: Independent History of Recent Travel: No Home Medications - Allergies Allergies/Adverse Reactions: Allergies Allergy/AdvReac Type Severity Reaction Status Date / Time Penicillins Allergy Verified 12/08/18 08:00 - Home Medications Home Medications: Ambulatory Orders Methadone [Dolophine -] 70 mg PO DAILY 09/25/17 Rivaroxaban [Xarelto -] 20 mg PO DAILY 09/25/17 Valsartan 320 mg PO HS 09/25/17 metFORMIN HCL [Glucophage -] 500 mg PO BID 09/25/17 Albuterol Sulfate Inhaler - [Ventolin HFA Inhaler -] 1 - 2 inh PO QID PRN #1 inhaler 01/26/18 Pantoprazole Sodium [Protonix -] 40 mg PO DAILY 15 Days #15 tablet.ec 10/17/18 Furosemide [Lasix -] 40 mg PO DAILY #30 tablet 11/14/18 Metoprolol Tartrate [Lopressor -] 50 mg PO BID 30 Days #60 tablet 11/14/18 Family Disease History - Family Disease History Family Disease History: Heart Disease: Father (DC), CA: Sister (Cervical CA) Review of Systems - Review of Systems Respiratory: reports: Cough, SOB on Exertion Vital Signs: Vital Signs Temperature 98.6 F 12/09/18 09:02 Pulse Rate 88 12/09/18 09:02 Respiratory Rate 16 12/09/18 09:02 Blood Pressure 137/54 L 12/09/18 09:02 O2 Sat by Pulse Oximetry (%) 96 12/08/18 20:00 Constitutional: Yes: No Distress, Calm Neck: Yes: Supple Respiratory: Yes: Regular, Diminished, On Nasal O2 Gastrointestinal: Yes: Normal Bowel Sounds, Soft Cardiovascular: Yes: Tachycardia, Pulse Irregular JVD: No Carotid Bruit: No Heart Sounds: Yes: S1, S2 Murmur: Yes: Systolic Murmur, Grade 1 Edema: Yes Edema: LLE: Trace, RLE: Trace Integumentary: Yes: Venous Stasis Changes - Other Data Labs, Other Data: CBC, BMP 12/09/18 05:30 12/09/18 05:30 Troponin, BNP 12/08/18 12/08/18 09:29 14:30 Troponin I < 0.02 < 0.02 B-Natriuretic Peptide 5562.2 H Troponin, BNP 12/08/18 12/08/18 09:29 14:30 Troponin I < 0.02 < 0.02 B-Natriuretic Peptide 5562.2 H Aflutter @ 128->NSR Ejection Fraction %: LVEF > or = 40 % Imaging - Results Chest X-ray: Report Reviewed (Congestion) Problem List - Problems (1) Acute on chronic diastolic CHF (congestive heart failure) Code(s): I50.33 - ACUTE ON CHRONIC DIASTOLIC (CONGESTIVE) HEART FAILURE (2) Atrial fibrillation with rapid ventricular response Code(s): I48.91 - UNSPECIFIED ATRIAL FIBRILLATION (3) COPD exacerbation Code(s): J44.1 - CHRONIC OBSTRUCTIVE PULMONARY DISEASE W (ACUTE) EXACERBATION (4) Diabetes type 2, controlled Code(s): E11.9 - TYPE 2 DIABETES MELLITUS WITHOUT COMPLICATIONS Qualifiers: Diabetes mellitus intermediate card tender insulin use: without long-term use (5) Methadone dependence Code(s): F11.20 - OPIOID DEPENDENCE, UNCOMPLICATED (6) PAD (peripheral artery disease) Code(s): I73.9 - PERIPHERAL VASCULAR DISEASE, UNSPECIFIED (7) S/P aorto-bifemoral bypass surgery Code(s): Z95.828 - PRESENCE OF OTHER VASCULAR IMPLANTS AND GRAFTS Assessment/Plan 11/14/2018 Echo: Normal LV size and fxn LVEF 60-65%, normal RV size and fxn, mild LAE, RVSP 40 mmHg 12/23/2016 P-Myoview: Small size, mild inferior ischemia LVEF 71% 1. PAF with RVR [id number] score of 4 on DOAC 2. HTN/HCVD 3. Hypercholesterolemia 4. Type 2 DM 5. Acute on chronic LV diastolic failure 6. Acute exacerbation of home O2-dependent COPD 7. Previous substance/Opioid dependence currently on Methadone treatment 8. PAD s/p aortic bifem bypass 9. CAD with mildly abnormal MPI 10. H/o c. diff colitis PLAN: 1. Continue Metoprolol 50 bid and Cardizem as needed for rate control. Resume Diovan as tolerated 2. Continue Xarelto 20 qd 3. Resumed oral diuretics with monitor diuretic response, renal function and electrolytes 4. Bronchodilator, short course of IV steroids with GI protection, empiric abx course and O2 to maintain saO2 88-92% 5. Methadone treatment 6. Thank you for consultative opportunity
--- NOTE | 2018-12-09 10:24 | EKG ---
Test Reason : Blood Pressure : / mmHG Vent. Rate : 081 BPM Atrial Rate : 234 BPM P-R Int : 000 ms QRS Dur : 072 ms QT Int : 356 ms P-R-T Axes : 000 056 -81 degrees QTc Int : 413 ms ATRIAL FIBRILLATION ABNORMAL ECG WHEN COMPARED WITH ECG OF 08-DEC-2018 07:58, VENT. RATE HAS DECREASED BY 47 BPM NONSPECIFIC T WAVE ABNORMALITY HAS REPLACED INVERTED T WAVES IN INFERIOR LEADS INVERTED T WAVES HAVE REPLACED NONSPECIFIC T WAVE ABNORMALITY IN ANTERIOR LEADS Confirmed by WILDER RAIN, NEW ([id number]) on 12/09/2018 10:23:57 AM Referred By: Confirmed By:NEW HDZ MD
[2018-12-09 10:57] LABS: ANISOCYTOSIS 0; MACROCYTOSIS 0; PLATELET ESTIMATE NORMAL
[2018-12-09] MEDS ORDERED: METOPROLOL TARTRATE 25 MG TABLET (FP) PO ONE (10:58)
[2018-12-09] MEDS ORDERED: PT OWN MED DRAWER 7, Y5N ONE ×2 (12:14→22:17)
[2018-12-09] MEDS: AZITHROMYCIN IVPB 250 MG in DEXTROSE 5%-WATER - 250 ML IVPB SCH (13:04)
--- NOTE | 2018-12-09 13:38 | PN ---
Physical Exam: SUBJECTIVE: Patient seen and examined at bedside. Patient endorses improvement of his shortness of breath at rest, however does admit some dyspnea upon walking to the bathroom from his bed. Patient denies subjective fevers, chills, chest pain, palpitations, abdominal pain, nausea, vomiting. Patient endorses agitation, and would like to speak with a psychiatrist. He denies suicidal, or homicidal ideation upon my encounter. OBJECTIVE: Vital Signs Period Temp Pulse Resp BP Sys/Chatterjee Pulse Ox Last 24 Hr 97.5 F-98.6 F 70-133 15-20 101-153/54-120 94-96 GENERAL: The patient is awake, alert, and fully oriented, in no acute distress. HEAD: Normocephalic, atraumatic. EYES: PERRL, extraocular movements intact, sclera anicteric, conjunctiva clear. ENT: Oropharynx clear without exudates, moist mucous membranes. NECK: Trachea midline, full range of motion, supple without lymphadenopathy LUNGS: Good inspiratory effort, and poor air entry bilaterally. No wheezes, or crackles auscultated. No accessory lung use, HEART: Regular rate and rhythm, S1, S2 without murmur, rub or gallop. ABDOMEN: Soft, nontender, nondistended, normoactive bowel sounds, no guarding, no rebound, no hepatosplenomegaly, no masses. EXTREMITIES: 2+ radial, dorsalis pedis pulses bilaterally, warm, well-perfused. 1+ edema, which chronic venous stasis changes bilaterally. NEUROLOGICAL: Cranial nerves II through XII grossly intact. Normal speech PSYCH: Agitated Laboratory Results - last 24 hr 12/08/18 12/08/18 12/08/18 09:29 13:38 14:30 WBC RBC Hgb Hct MCV MCH MCHC RDW Plt Count MPV Absolute Neuts (auto) Neutrophils % Neutrophils % (Manual) Band Neutrophils % Lymphocytes % Lymphocytes % (Manual) Monocytes % Monocytes % (Manual) Eosinophils % Eosinophils % (Manual) Basophils % Basophils % (Manual) Myelocytes % (Man) Promyelocytes % (Man) Blast Cells % (Manual) Nucleated RBC % Metamyelocytes Hypochromia Platelet Estimate Polychromasia Poikilocytosis Anisocytosis Microcytosis Macrocytosis Sodium 139 Potassium 4.7 Chloride 101 Carbon Dioxide 32 Anion Gap 6 L BUN 22 H Creatinine 1.0 Creat Clearance w eGFR 75.47 POC Glucometer Random Glucose 154 H Hemoglobin A1c % 6.5 H Calcium 8.9 Phosphorus Magnesium Total Bilirubin 0.8 AST 32 ALT 46 Alkaline Phosphatase 164 H Troponin I < 0.02 < 0.02 B-Natriuretic Peptide 5562.2 H Total Protein 6.9 Albumin 3.3 L Triglycerides 67 Cholesterol 112 Total LDL Cholesterol 56 HDL Cholesterol 51 TSH 0.36 D 12/08/18 12/09/18 12/09/18 21:31 02:52 05:21 WBC RBC Hgb Hct MCV MCH MCHC RDW Plt Count MPV Absolute Neuts (auto) Neutrophils % Neutrophils % (Manual) Band Neutrophils % Lymphocytes % Lymphocytes % (Manual) Monocytes % Monocytes % (Manual) Eosinophils % Eosinophils % (Manual) Basophils % Basophils % (Manual) Myelocytes % (Man) Promyelocytes % (Man) Blast Cells % (Manual) Nucleated RBC % Metamyelocytes Hypochromia Platelet Estimate Polychromasia Poikilocytosis Anisocytosis Microcytosis Macrocytosis Sodium Potassium Chloride Carbon Dioxide Anion Gap BUN Creatinine Creat Clearance w eGFR POC Glucometer 234 214 225 Random Glucose Hemoglobin A1c % Calcium Phosphorus Magnesium Total Bilirubin AST ALT Alkaline Phosphatase Troponin I B-Natriuretic Peptide Total Protein Albumin Triglycerides Cholesterol Total LDL Cholesterol HDL Cholesterol TSH 12/09/18 12/09/18 12/09/18 05:30 05:30 11:50 WBC 13.8 H RBC 3.75 L Hgb 11.4 L Hct 35.3 L MCV 94.2 MCH 30.4 MCHC 32.2 RDW 15.7 Plt Count 172 MPV 9.9 Absolute Neuts (auto) 12.7 H Neutrophils % 92.4 H Neutrophils % (Manual) 94.0 H Band Neutrophils % 0.0 Lymphocytes % 3.4 L D Lymphocytes % (Manual) 3.0 L D Monocytes % 4.1 Monocytes % (Manual) 3 L Eosinophils % 0.0 D Eosinophils % (Manual) 0.0 Basophils % 0.1 Basophils % (Manual) 0.0 Myelocytes % (Man) 0 Promyelocytes % (Man) 0 Blast Cells % (Manual) 0 Nucleated RBC % 0 Metamyelocytes 0 Hypochromia 0 Platelet Estimate Normal Polychromasia 0 Poikilocytosis 0 Anisocytosis 0 Microcytosis 0 Macrocytosis 0 Sodium 135 L Potassium 5.1 Chloride 99 Carbon Dioxide 32 Anion Gap 4 L BUN 30 H Creatinine 1.1 Creat Clearance w eGFR 67.61 POC Glucometer 290 Random Glucose 219 H Hemoglobin A1c % Calcium 8.9 Phosphorus 2.7 Magnesium 2.3 Total Bilirubin 0.4 AST 22 ALT 35 Alkaline Phosphatase 125 H Troponin I B-Natriuretic Peptide Total Protein 6.2 L Albumin 2.8 L Triglycerides Cholesterol Total LDL Cholesterol HDL Cholesterol TSH Active Medications Generic Name Dose Route Start Last Admin Trade Name Freq PRN Reason Stop Dose Admin Al Hydroxide/Mg Hydroxide 30 ml 12/08/18 21:23 12/09/18 13:05 Mylanta Oral Suspension - PO 30 ml TID [facility] Administration Albuterol/Ipratropium 1 amp 12/08/18 13:58 Duoneb - NEB Q4H PRN SHORTNESS OF BREATH Budesonide/Formoterol Fumarate 2 puff 12/08/18 22:00 12/09/18 10:02 Symbicort 160/4.5mcg - IH 2 puff BID [facility] Administration Furosemide 40 mg 12/09/18 10:00 12/09/18 09:51 Lasix - PO 40 mg DAILY [facility] Administration Azithromycin 250 mg/ Dextrose 250 mls @ 250 mls/hr 12/09/18 10:00 12/09/18 13 :04 IVPB 250 mls/hr DAILY [facility] Administration Insulin Aspart 1 vial 12/08/18 22:00 12/09/18 11:51 Novolog Vial Sliding Scale - SQ 6 units ACHS [facility] Administration Protocol Methadone HCl 40 mg/ Methadone 70 mg 12/09/18 10:00 12/09/18 09:52 HCl 30 mg PO 70 mg DAILY [facility] Administration Methylprednisolone Sodium Succinate 40 mg 12/08/18 18:00 12/09/18 09:55 Solu-Medrol - IVPUSH 40 mg Q8H-IV [facility] Administration Metoprolol Tartrate 75 mg 12/09/18 10:59 Lopressor - PO BID [facility] Pantoprazole Sodium 40 mg 12/09/18 10:00 12/09/18 09:52 Protonix - PO 40 mg DAILY [facility] Administration Rivaroxaban 20 mg 12/08/18 18:00 12/08/18 19:01 Xarelto - PO 20 mg DAILY@1800 [facility] Administration ASSESSMENT/PLAN: Patient is a 63 year old male with history of HFpEF, pulmonary hypertension, Afib on Xarelto, COPD (on home oxygen 2L), NIDDM, opiod dependence presented with complaint of shortness of breath. COPD exacerbation -Chest radiograph shows no acute infiltrates -Duonebs Q4H PRN -Methylprednisone 40mg IV q8H -Symbicort 160-4.5 2 puffs daily -Azithromycin 20mg IV daily -Maintain oxygen saturation greater than 90% CHF -BNP 5562 (7376 on prior admission 10/2018) -Lasix 40mg IV daily -ECHO (10/2018) LV normal size, thickness, function. EF 60-65% LA mildly dilated. Trace MR. Pulmonary artery pressure at least 40mmHg. -Daily weights -Strict intake output -Cardiology consult (Dr. Burns) appreciated. Afib -EKG on admission shows Afib with RVR at 128 BPM. -Discontinue Diltiazem. -Metoprolol increased to 75mg PO BID -Xarelto 20mg PO daily -Telemetry monitoring History of opiod dependence -Methadone 70mg PO daily GERD -Protonix 40mg PO daily Diabetes mellitus -HbA1c 6.5% -Insulin sliding scale ACHS -Fingerstick blood glucose monitoring ACHS Hypertension -Holding home Valsartan while patient hypotensive. -Follow vital signs closely. Anxiety -Psychiatry consult (Dr. Valadez) consult requested -Patient currently denies suicidal, homicidal ideation upon my encounter. FEN -No IV fluids indicated. -Follow CMP -Diabetic diet Prophylaxis -Patient is on Xarelto 20mg PO daily for Avib Disposition -Continue care in Telemetry floor Visit type - Emergency Visit Emergency Visit: Yes ED Registration Date: 12/08/18 Care time: The patient presented to the Emergency Department on the above date and was hospitalized for further evaluation of their emergent condition. - New Patient This patient is new to me today: No - Critical Care Critical Care patient: No - Discharge Referral Referred to [facility] Med [facility] No
--- NOTE | 2018-12-09 16:26 | PN ---
Teaching Attending Note Name of Resident: Montrell Zapien ATTENDING PHYSICIAN STATEMENT I saw and evaluated the patient. I reviewed the resident's note and discussed the case with the resident. I agree with the resident's findings and plan as documented. SUBJECTIVE: Some improvement in SOB and Cough. No palps/CP. No orthopnea, PND. OBJECTIVE: Afebrile, Hemodynamically Stable. Last Vital Signs Temp Pulse Resp BP Pulse Ox 98.4 F 69 18 115/78 96 12/09/18 14:51 12/09/18 14:51 12/09/18 14:51 12/09/18 14:51 12/09/18 09:00 Heart - S1, S2, RRR Lungs- decreased air entry - minimal wheeze Abdomen - Soft, non-tender. Bowel Sounds normal. Extremities- bilateral LE edema, some excoriation hastings Neuro -AAO x 3. Tone/Power normal all extremities. Laboratory Results - last 24 hr 12/08/18 12/09/18 12/09/18 21:31 02:52 05:21 WBC RBC Hgb Hct MCV MCH MCHC RDW Plt Count MPV Absolute Neuts (auto) Neutrophils % Neutrophils % (Manual) Band Neutrophils % Lymphocytes % Lymphocytes % (Manual) Monocytes % Monocytes % (Manual) Eosinophils % Eosinophils % (Manual) Basophils % Basophils % (Manual) Myelocytes % (Man) Promyelocytes % (Man) Blast Cells % (Manual) Nucleated RBC % Metamyelocytes Hypochromia Platelet Estimate Polychromasia Poikilocytosis Anisocytosis Microcytosis Macrocytosis Sodium Potassium Chloride Carbon Dioxide Anion Gap BUN Creatinine Creat Clearance w eGFR POC Glucometer 234 214 225 Random Glucose Calcium Phosphorus Magnesium Total Bilirubin AST ALT Alkaline Phosphatase Total Protein Albumin 12/09/18 12/09/18 12/09/18 05:30 05:30 11:50 WBC 13.8 H RBC 3.75 L Hgb 11.4 L Hct 35.3 L MCV 94.2 MCH 30.4 MCHC 32.2 RDW 15.7 Plt Count 172 MPV 9.9 Absolute Neuts (auto) 12.7 H Neutrophils % 92.4 H Neutrophils % (Manual) 94.0 H Band Neutrophils % 0.0 Lymphocytes % 3.4 L D Lymphocytes % (Manual) 3.0 L D Monocytes % 4.1 Monocytes % (Manual) 3 L Eosinophils % 0.0 D Eosinophils % (Manual) 0.0 Basophils % 0.1 Basophils % (Manual) 0.0 Myelocytes % (Man) 0 Promyelocytes % (Man) 0 Blast Cells % (Manual) 0 Nucleated RBC % 0 Metamyelocytes 0 Hypochromia 0 Platelet Estimate Normal Polychromasia 0 Poikilocytosis 0 Anisocytosis 0 Microcytosis 0 Macrocytosis 0 Sodium 135 L Potassium 5.1 Chloride 99 Carbon Dioxide 32 Anion Gap 4 L BUN 30 H Creatinine 1.1 Creat Clearance w eGFR 67.61 POC Glucometer 290 Random Glucose 219 H Calcium 8.9 Phosphorus 2.7 Magnesium 2.3 Total Bilirubin 0.4 AST 22 ALT 35 Alkaline Phosphatase 125 H Total Protein 6.2 L Albumin 2.8 L Current Medications Generic Name Dose Route Start Last Admin Trade Name Freq PRN Reason Stop Dose Admin Al Hydroxide/Mg Hydroxide 30 ml 12/08/18 21:23 12/09/18 13:05 Mylanta Oral Suspension - PO 30 ml TID [facility] Administration Albuterol/Ipratropium 1 amp 12/08/18 13:58 Duoneb - NEB Q4H PRN SHORTNESS OF BREATH Budesonide/Formoterol Fumarate 2 puff 12/08/18 22:00 12/09/18 10:02 Symbicort 160/4.5mcg - IH 2 puff BID [facility] Administration Furosemide 40 mg 12/09/18 10:00 12/09/18 09:51 Lasix - PO 40 mg DAILY [facility] Administration Azithromycin 250 mg/ Dextrose 250 mls @ 250 mls/hr 12/09/18 10:00 12/09/18 13 :04 IVPB 250 mls/hr DAILY [facility] Administration Insulin Aspart 1 vial 12/08/18 22:00 12/09/18 11:51 Novolog Vial Sliding Scale - SQ 6 units ACHS [facility] Administration Protocol Methadone HCl 40 mg/ Methadone 70 mg 12/09/18 10:00 12/09/18 09:52 HCl 30 mg PO 70 mg DAILY [facility] Administration Methylprednisolone Sodium Succinate 40 mg 12/08/18 18:00 12/09/18 09:55 Solu-Medrol - IVPUSH 40 mg Q8H-IV [facility] Administration Metoprolol Tartrate 75 mg 12/09/18 10:59 Lopressor - PO BID [facility] Pantoprazole Sodium 40 mg 12/09/18 10:00 12/09/18 09:52 Protonix - PO 40 mg DAILY [facility] Administration Rivaroxaban 20 mg 12/08/18 18:00 12/08/18 19:01 Xarelto - PO 20 mg DAILY@1800 [facility] Administration ASSESSMENT AND PLAN: 63 year old male with Chronic Systolic HF, Pulmonary HTN, Atrial Fibrillation on Xarelto, CRF sec to COPD on 2L O2, DM 2, 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 No chest pain, hemoptysis, fever, chills. He was recently discharged 11/14/18 after admission for COPD and CHF exacerbations. 1. Acute on Chronic Respiratory Failure secondary to Acute Exacerbation COPD CXR - no infiltrate. Continue supplemental O2, Bronchodilator Nebs, Azithromycin, IV Solumedrol. Monitor respiratory status. Flu swab requested. 2. Atrial Fibrillation with RVR ECG - Atrial Fibrillation, RVR, QTc 458 TropI neg, currently asymptomatic Metoprolol dose increased to 75mg BID. For discussion with Cardiology for transition to non-bronchospasmic BB. 3. Chronic Diastolic CHF No convincing evidence of acute exacerbation. Received IV Lasix in ED. Continue home dose oral Lasix for now. BNP elevated, but less than on prior admission. CXR - no congestion/effusion Current weight less than on prior discharge. I/Os. 4. Pulmonary HTN - on Home O2. 5. DM 2 - maintain on sliding scale. 6. Hx Substance/Opiate abuse - on Methadone. 7. GERD - started on PPI as he complained of some epigastric burning, now resolved. DVT Px - on Xarelto
[2018-12-09] MEDS: RIVAROXABAN 20 MG TABLET PO SCH (17:02)
--- NOTE | 2018-12-09 18:38 | CON.PSY ---
Psychiatry Consult Chief Complaint: 63 daisy old male with chronic medical conditions and Metahdone maintanance. O2 dependent seen gor Psych eval . reportshe getsangry outside , because he says people are stupid, they get me upset. I get depressed some times but I dont feel suicidal. I dont want any psych meds. Symptoms: reports: Depressed Mood, Aggressivity, Impulsivity - Previous Psychiatric Treatment Outpatient: None Inpatient: None - Previous Substance Abuse Treatment Outpatient: Less than 6 mos ago - Reason for Previous Treatment Reason for Previous Treatment: Heroin or Other Narcotics - Current Medications Current Medications: Active Medications Al Hydroxide/Mg Hydroxide (Mylanta Oral Suspension -) 30 ml PO TID [facility] Last Admin: 12/09/18 13:05 Dose: 30 ml Albuterol/Ipratropium (Duoneb -) 1 amp NEB Q4H PRN PRN Reason: SHORTNESS OF BREATH Budesonide/Formoterol Fumarate (Symbicort 160/4.5mcg -) 2 puff IH BID [facility] Last Admin: 12/09/18 10:02 Dose: 2 puff Furosemide (Lasix -) 40 mg PO DAILY [facility] Last Admin: 12/09/18 09:51 Dose: 40 mg Azithromycin 250 mg/ Dextrose 250 mls @ 250 mls/hr IVPB DAILY [facility] Last Admin: 12/09/18 13:04 Dose: 250 mls/hr Insulin Aspart (Novolog Vial Sliding Scale -) 1 vial SQ ACHS [facility]; Protocol Last Admin: 12/09/18 16:50 Dose: 8 units Methadone HCl 40 mg/ Methadone (HCl 30 mg) 70 mg PO DAILY [facility] Last Admin: 12/09/18 09:52 Dose: 70 mg Methylprednisolone Sodium Succinate (Solu-Medrol -) 40 mg IVPUSH Q8H-IV [facility] Last Admin: 12/09/18 17:02 Dose: 40 mg Metoprolol Tartrate (Lopressor -) 75 mg PO BID [facility] Pantoprazole Sodium (Protonix -) 40 mg PO DAILY [facility] Last Admin: 12/09/18 09:52 Dose: 40 mg Rivaroxaban (Xarelto -) 20 mg PO DAILY@1800 [facility] Last Admin: 12/09/18 17:02 Dose: 20 mg - Allergies Allergies: Allergies Allergy/AdvReac Type Severity Reaction Status Date / Time Penicillins Allergy Verified 12/08/18 08:00 - Current Living Status Usual Living Arrangement: Alone - Current Mental Status Evaluation Appearance: Disheveled Attitude: Guarded - Affect Affect: Full Range Appropriateness: Appropriate to Content - Mood Mood: Irritable - Speech/Language Expressive: Coherent - Psychomotor Activity Psychomotor Activity: Hyperactive - Thought Process Thought Process: Intact - Thought Content Hallucinations: Absent Delusions: Absent - Self Perception Self Perception: No Impairment - Cognition Attention: Alert Orientation: Time Memory, Immediate Recall: Intact Memory, Short Term: 3/3 Memory, Remote with Promptin/3 - Abstraction Proverb Interpretation: Intact Judgement: Minimally Impaired - Insight Insight: Intact - Impulse Control Impulse Control: Minimally Impaired - Suicidal Ideation Suicidal Ideation: No - Homicidal Ideation Homicidal Ideation: No Problem List - Problems (1) Impulse control disorder Code(s): F63.9 - IMPULSE DISORDER, UNSPECIFIED Assessment/Plan 1) Depakote sp caps 125mg po bid for aggressive behaviour nd impulse control disorder. 2) patient does not want any anti depressants at this time.
[2018-12-09] MEDS: DIVALPROEX SODIUM 125 MG SPRINKLE CAPS PO SCH (22:47)
[2018-12-10] MEDS: methylPREDNISolone NA SUCC 40 MG/1 ML VIAL IVPUSH SCH (01:15)
[2018-12-10] MEDS: ALBUTEROL SO4 2.5/IPRATROPIUM 0.5 INH SOL 3 ML VIAL.NEB. NEB PRN (01:45)
[2018-12-10] MEDS: MAG HYDROX/AL HYDROX/SIMETH 30 ML UNIT-DOSE CUP PO SCH ×3 (06:11→21:00)
[2018-12-10] MEDS: INSULIN SLIDING SCALE (NOVOLOG) 1 VIAL SQ SCH ×4 (06:13→21:01)
[2018-12-10 06:51] LABS: HEMATOCRIT 35.9 % (35.4-49); HEMOGLOBIN 11.5 GM/dL (11.7-16.9); MCH 30.2 pg (25.7-33.7); MEAN CELL VOLUME 94.3 fl (80-96); MEAN PLT VOLUME 9.4 fl (7.5-11.1); PLATELET COUNT 187 K/MM3 (134-434); RBC 3.81 M/mm3 (4.00-5.60); RDW 15.9 % (11.9-15.9); WHITE BLOOD COUNT 17.8 K/mm3 (4.0-10.0)
[2018-12-10 07:16] LABS: ALK PHOS 117 U/L (45-117); ANION GAP 6 MMOL/L (8-16); BILIRUBIN,TOTAL 0.4 mg/dL (0.2-1); BLOOD UREA NITROGEN 37 mg/dL (7-18); CALCIUM 8.8 mg/dL (8.5-10.1); CHLORIDE 99 mmol/L (98-107); CO2 32 mmol/L (21-32); CREATININE 1.1 mg/dL (0.55-1.3); GLUCOSE,RANDOM 158 mg/dL (74-106); POTASSIUM 5.2 mmol/L (3.5-5.1); SGOT/AST 12 U/L (15-37); SGPT/ALT 31 U/L (13-61); SODIUM 137 mmol/L (136-145); TOT PROT 6.2 g/dl (6.4-8.2)
[2018-12-10] MEDS ORDERED: SODIUM POLYSTYRENE SULFONATE 15 GM/60 ML BOTTLE PO ONE (07:38)
[2018-12-10] MEDS ORDERED: predniSONE 20 MG TABLET (UD) PO ONE (08:51)
[2018-12-10] MEDS ORDERED: ALBUTEROL SO4 0.5 % INH SOLN 2.5 MG/0.5 ML VIAL.NEB. NEB ONE (09:01)
[2018-12-10] MEDS ORDERED: METHADONE HCL 40 MG DISPERSABLE TABLET ONE (09:22)
[2018-12-10] MEDS ORDERED: METHADONE HCL 10 MG TABLET ONE (09:22)
[2018-12-10] MEDS: METHADONE 40 MG, METHADONE 30 MG PO SCH (09:25)
[2018-12-10] MEDS: DIVALPROEX SODIUM 125 MG SPRINKLE CAPS PO SCH (09:25)
[2018-12-10] MEDS: PANTOPRAZOLE 40 MG TABLET (FP) PO SCH (09:26)
[2018-12-10] MEDS: METOPROLOL TARTRATE 50 MG TABLET (FP) PO SCH ×2 (09:26→21:00)
[2018-12-10] MEDS: FUROSEMIDE 40 MG TABLET (FP) PO SCH (09:26)
[2018-12-10] MEDS: BUDESONIDE/FORMETEROL FUMARATE 160/4.5 mcg INHALER IH SCH ×2 (09:26→21:01)
[2018-12-10] MEDS: AZITHROMYCIN IVPB 250 MG in DEXTROSE 5%-WATER - 250 ML IVPB SCH (09:26)
[2018-12-10] MEDS ORDERED: ALPRAZolam 0.25 MG TABLET PO ONE ×3 (10:19→22:00)
--- NOTE | 2018-12-10 11:15 | PN ---
Progress Note, Physician Chief Complaint: Events noted Not in distress History of Present Illness: Patient was seen and examined. Awake and alert. Chart was reviewed Denies chest pain or palpitations Less SOB Appears to be in sinus rhythm - Current Medication List Current Medications: Active Medications Al Hydroxide/Mg Hydroxide (Mylanta Oral Suspension -) 30 ml PO TID [facility] Last Admin: 12/10/18 06:11 Dose: 30 ml Albuterol/Ipratropium (Duoneb -) 1 amp NEB Q4H PRN PRN Reason: SHORTNESS OF BREATH Last Admin: 12/10/18 01:45 Dose: 1 amp Budesonide/Formoterol Fumarate (Symbicort 160/4.5mcg -) 2 puff IH BID [facility] Last Admin: 12/10/18 09:26 Dose: 2 puff Furosemide (Lasix -) 40 mg PO DAILY [facility] Last Admin: 12/10/18 09:26 Dose: 40 mg Azithromycin 250 mg/ Dextrose 250 mls @ 250 mls/hr IVPB DAILY [facility] Last Admin: 12/10/18 09:26 Dose: 250 mls/hr Insulin Aspart (Novolog Vial Sliding Scale -) 1 vial SQ ACHS [facility]; Protocol Last Admin: 12/10/18 06:13 Dose: 2 units Methadone HCl 40 mg/ Methadone (HCl 30 mg) 70 mg PO DAILY [facility] Last Admin: 12/10/18 09:25 Dose: 70 mg Metoprolol Tartrate (Lopressor -) 75 mg PO BID [facility] Last Admin: 12/10/18 09:26 Dose: 75 mg Pantoprazole Sodium (Protonix -) 40 mg PO DAILY [facility] Last Admin: 12/10/18 09:26 Dose: 40 mg Prednisone (Deltasone -) 40 mg PO DAILY [facility] Stop: 12/12/18 10:01 Rivaroxaban (Xarelto -) 20 mg PO DAILY@1800 [facility] Last Admin: 12/09/18 17:02 Dose: 20 mg - Objective Vital Signs: Vital Signs Temperature 97.8 F 12/10/18 10:00 Pulse Rate 70 12/10/18 10:00 Respiratory Rate 18 12/10/18 10:00 Blood Pressure 132/72 12/10/18 10:00 O2 Sat by Pulse Oximetry (%) 96 12/09/18 19:45 Eyes: Yes: PERRL HENT: Yes: Atraumatic Neck: Yes: Supple Cardiovascular: Yes: Regular Rate and Rhythm, S1, S2 Respiratory: Yes: Diminished Gastrointestinal: Yes: Normal Bowel Sounds, Soft. No: Tenderness Edema: No Additional Findings/Remarks: - Review of Systems Constitutional: denies: Chills, Fever Cardiovascular: (-) Chest Pain. (+) Palpitations, (+) Shortness of Breath Respiratory: denies Cough. denies: Hemoptysis, Orthopnea, PND, (+) SOB, SOB on Exertion Gastrointestinal: denies: Abdominal Pain, Constipation, Diarrhea, Melena, Nausea , Rectal Bleeding, Vomiting Neurological: denies: Dizziness, Headache, Seizure, Syncope Labs: CBC, BMP 12/10/18 05:30 12/10/18 05:30 Problem List - Problems (1) Acute on chronic diastolic CHF (congestive heart failure) Code(s): I50.33 - ACUTE ON CHRONIC DIASTOLIC (CONGESTIVE) HEART FAILURE (2) CHF (congestive heart failure) Code(s): I50.9 - HEART FAILURE, UNSPECIFIED (3) COPD (chronic obstructive pulmonary disease) Code(s): J44.9 - CHRONIC OBSTRUCTIVE PULMONARY DISEASE, UNSPECIFIED Qualifiers: COPD type: unspecified COPD Qualified Code(s): J44.9 - Chronic obstructive pulmonary disease, unspecified (4) Diabetes type 2, controlled Code(s): E11.9 - TYPE 2 DIABETES MELLITUS WITHOUT COMPLICATIONS Qualifiers: Diabetes mellitus machine long goods helper insulin use: without machine long goods helper use (5) Diastolic dysfunction Code(s): I51.9 - HEART DISEASE, UNSPECIFIED (6) Methadone dependence Code(s): F11.20 - OPIOID DEPENDENCE, UNCOMPLICATED (7) Paroxysmal atrial fibrillation Code(s): I48.0 - PAROXYSMAL ATRIAL FIBRILLATION (8) S/P aorto-bifemoral bypass surgery Code(s): Z95.828 - PRESENCE OF OTHER VASCULAR IMPLANTS AND GRAFTS (9) Shortness of breath Code(s): R06.02 - SHORTNESS OF BREATH Assessment/Plan 1. PAF with RVR [id number] score of 4 on DOAC appears to be sinus rhythm 2. HTN/HCVD 3. Hypercholesterolemia 4. Type 2 DM 5. Acute on chronic LV diastolic failure 6. Acute exacerbation of home O2-dependent COPD 7. Previous substance/Opioid dependence currently on Methadone treatment 8. PAD s/p aortic bifem bypass 9. CAD with mildly abnormal MPI 10. History of C. Diff colitis PLAN: 1. Continue Metoprolol 50 mg BID and Cardizem as needed for rate control. Resume Diovan as tolerated and when feasible 2. Continue Xarelto 20 mg QD 3. Oral diuretics with Lasix 40 mg QD and monitor renal function and electrolytes 4. Bronchodilator, short course of IV steroids with GI protection, empiric antibiotic course and O2 5. Methadone treatment Further plans are to follow Dorian Figueroa MD
--- NOTE | 2018-12-10 12:04 | PN ---
Teaching Attending Note Name of Resident: Smiley Garza ATTENDING PHYSICIAN STATEMENT I saw and evaluated the patient. I reviewed the resident's note and discussed the case with the resident. I agree with the resident's findings and plan as documented. SUBJECTIVE: Continued improvement in SOB and Cough. No palps/CP. No orthopnea, PND. No fever/chills OBJECTIVE: Afebrile, Hemodynamically Stable. Last Vital Signs Temp Pulse Resp BP Pulse Ox 98.4 F 66 18 159/78 96 12/10/18 11:28 12/10/18 11:28 12/10/18 11:28 12/10/18 11:28 12/10/18 10:00 Heart - S1, S2, RRR Lungs- decreased air entry globally Abdomen - Soft, non-tender. Bowel Sounds normal. Extremities- bilateral LE edema, some excoriation hastings Neuro -AAO x 3. Tone/Power normal all extremities. Laboratory Results - last 24 hr 12/09/18 12/09/18 12/09/18 16:48 19:45 22:44 WBC RBC Hgb Hct MCV MCH MCHC RDW Plt Count MPV Sodium Potassium Chloride Carbon Dioxide Anion Gap BUN Creatinine Creat Clearance w eGFR POC Glucometer 341 200 Random Glucose Calcium Total Bilirubin AST ALT Alkaline Phosphatase Total Protein Albumin Influenza A (Rapid) Negative Influenza B (Rapid) Negative 12/10/18 12/10/18 12/10/18 05:30 05:30 06:08 WBC 17.8 H RBC 3.81 L Hgb 11.5 L Hct 35.9 MCV 94.3 MCH 30.2 MCHC 32.0 RDW 15.9 Plt Count 187 MPV 9.4 Sodium 137 Potassium 5.2 H Chloride 99 Carbon Dioxide 32 Anion Gap 6 L BUN 37 H Creatinine 1.1 Creat Clearance w eGFR 67.61 POC Glucometer 169 Random Glucose 158 H Calcium 8.8 Total Bilirubin 0.4 AST 12 L ALT 31 Alkaline Phosphatase 117 Total Protein 6.2 L Albumin 3.0 L Influenza A (Rapid) Influenza B (Rapid) 12/10/18 11:22 WBC RBC Hgb Hct MCV MCH MCHC RDW Plt Count MPV Sodium Potassium Chloride Carbon Dioxide Anion Gap BUN Creatinine Creat Clearance w eGFR POC Glucometer 314 Random Glucose Calcium Total Bilirubin AST ALT Alkaline Phosphatase Total Protein Albumin Influenza A (Rapid) Influenza B (Rapid) Current Medications Generic Name Dose Route Start Last Admin Trade Name Freq PRN Reason Stop Dose Admin Al Hydroxide/Mg Hydroxide 30 ml 12/08/18 21:23 12/10/18 06:11 Mylanta Oral Suspension - PO 30 ml TID [facility] Administration Albuterol/Ipratropium 1 amp 12/08/18 13:58 12/10/18 01:45 Duoneb - NEB 1 amp Q4H PRN Administration SHORTNESS OF BREATH Budesonide/Formoterol Fumarate 2 puff 12/08/18 22:00 12/10/18 09:26 Symbicort 160/4.5mcg - IH 2 puff BID [facility] Administration Furosemide 40 mg 12/09/18 10:00 12/10/18 09:26 Lasix - PO 40 mg DAILY [facility] Administration Azithromycin 250 mg/ Dextrose 250 mls @ 250 mls/hr 12/09/18 10:00 12/10/18 09 :26 IVPB 250 mls/hr DAILY [facility] Administration Insulin Aspart 1 vial 12/08/18 22:00 12/10/18 11:38 Novolog Vial Sliding Scale - SQ 8 units ACHS [facility] Administration Protocol Methadone HCl 40 mg/ Methadone 70 mg 12/09/18 10:00 12/10/18 09:25 HCl 30 mg PO 70 mg DAILY [facility] Administration Metoprolol Tartrate 75 mg 12/09/18 10:59 12/10/18 09:26 Lopressor - PO 75 mg BID [facility] Administration Pantoprazole Sodium 40 mg 12/09/18 10:00 12/10/18 09:26 Protonix - PO 40 mg DAILY [facility] Administration Prednisone 40 mg 12/11/18 10:00 Deltasone - PO 12/12/18 10:01 DAILY [facility] Rivaroxaban 20 mg 12/08/18 18:00 12/09/18 17:02 Xarelto - PO 20 mg DAILY@1800 [facility] Administration ASSESSMENT AND PLAN: 63 year old male with Chronic Systolic HF, Pulmonary HTN, Atrial Fibrillation on Xarelto, CRF sec to COPD on 2L O2, DM 2, 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 No chest pain, hemoptysis, fever, chills. He was recently discharged 11/14/18 after admission for COPD and CHF exacerbations. 1. Acute on Chronic Respiratory Failure secondary to Acute Exacerbation COPD CXR - no infiltrate. Influenza negative. Continue supplemental O2, Bronchodilator Nebs, Azithromycin. Transitioned to oral Prednisone from IV Solumedrol. For slow taper on discharge. PT/Ambulation today 2. Paroxysmal Atrial Fibrillation with RVR, now in SR ECG - Atrial Fibrillation, RVR, QTc 458 TropI neg, currently asymptomatic Metoprolol dose increased to 75mg BID. Discussed with Cardiology regarding transition to Bisoprolol, however it was felt that this may not control HR/ Rhythm as well. Continue Xarelto. 3. Chronic Diastolic CHF No convincing evidence of acute decompensation. Received IV Lasix in ED. Continue home dose oral Lasix. BNP elevated, but less than on prior admission. CXR - no congestion/effusion Current weight less than on prior discharge. 4. Pulmonary HTN - on Home O2. 5. DM 2 - maintain on sliding scale during in-patient stay. 6. Hx Substance/Opiate abuse - on Methadone. 7. GERD - started on PPI as he complained of some epigastric burning, now resolved. 8. Mildly anxious/aggressive with nursing staff yesterday - seen by Rory - placed on depakote for impulsive aggressive behavior. Patient declines depakote as he has been tried on this in the past. Agrees to a trial dose of Xanax 0.25mg. 9. Hyperkalemia - will repeat after Kayexalate. DVT Px - on Xarelto
--- NOTE | 2018-12-10 16:15 | PN ---
Physical Exam: SUBJECTIVE: Patient seen and examined. Was said to have been aggressive yesterday. Was seen by psych and refused to talk to Dr Valadez. Was placed on depakote for aggression/behavioral issues. This am pt said he has used depakote in past and it was not helpful. Will rather have a benzo. Breathing is improved and pt wants to go home tomorrow. Says he has home O2. OBJECTIVE: Vital Signs Period Temp Pulse Resp BP Sys/Chatterjee Pulse Ox Last 24 Hr 97.8 F-98.5 F 62-100 18-20 106-159/63-78 96-96 Vital Signs Temp 98.5 F 12/10/18 13:58 Pulse 69 12/10/18 13:58 Resp 18 12/10/18 13:58 BP 111/63 12/10/18 13:58 Pulse Ox 96 12/10/18 10:00 Intake & Output 12/09/18 12/10/18 12/10/18 23:59 11:59 23:59 Intake Total 1250 370 380 Output Total 500 200 Balance 750 170 380 Weight 91.172 kg Intake: IVPB 250 Oral 1000 370 380 Output: Urine 500 200 Void 500 200 Other: Voiding Method Urinal Toilet # Unmeasured Voids Void 1 3 Bowel Movement Yes # Bowel Movements 1 Weight Measurement Method Standing Scale GENERAL: The patient is awake, alert, and fully oriented, in no acute distress. EYES: PERRL, ENT: moist mucous membranes. LUNGS: Breath sounds equal, clear to auscultation bilaterally, no wheezes, no crackles HEART: Regular rate and rhythm, S1, S2 ABDOMEN: Soft, nontender, nondistended, normoactive bowel sounds EXTREMITIES: 2+ pulses, warm, well-perfused,chronic b/l non pitting edema with venous stasis and b/l anterior galeano venous dermatitis . NEUROLOGICAL: Cranial nerves II through XII grossly intact. Normal speech, gait not observed. PSYCH: Normal mood, normal affect. CBC, BMP 12/10/18 05:30 Laboratory Results - last 24 hr 12/09/18 12/09/18 12/09/18 16:48 19:45 22:44 WBC RBC Hgb Hct MCV MCH MCHC RDW Plt Count MPV Sodium Potassium Chloride Carbon Dioxide Anion Gap BUN Creatinine Creat Clearance w eGFR POC Glucometer 341 200 Random Glucose Calcium Total Bilirubin AST ALT Alkaline Phosphatase Total Protein Albumin Influenza A (Rapid) Negative Influenza B (Rapid) Negative 12/10/18 12/10/18 12/10/18 05:30 05:30 06:08 WBC 17.8 H RBC 3.81 L Hgb 11.5 L Hct 35.9 MCV 94.3 MCH 30.2 MCHC 32.0 RDW 15.9 Plt Count 187 MPV 9.4 Sodium 137 Potassium 5.2 H Chloride 99 Carbon Dioxide 32 Anion Gap 6 L BUN 37 H Creatinine 1.1 Creat Clearance w eGFR 67.61 POC Glucometer 169 Random Glucose 158 H Calcium 8.8 Total Bilirubin 0.4 AST 12 L ALT 31 Alkaline Phosphatase 117 Total Protein 6.2 L Albumin 3.0 L Influenza A (Rapid) Influenza B (Rapid) 12/10/18 11:22 WBC RBC Hgb Hct MCV MCH MCHC RDW Plt Count MPV Sodium Potassium Chloride Carbon Dioxide Anion Gap BUN Creatinine Creat Clearance w eGFR POC Glucometer 314 Random Glucose Calcium Total Bilirubin AST ALT Alkaline Phosphatase Total Protein Albumin Influenza A (Rapid) Influenza B (Rapid) Active Medications Generic Name Dose Route Start Last Admin Trade Name Freq PRN Reason Stop Dose Admin Al Hydroxide/Mg Hydroxide 30 ml 12/08/18 21:23 12/10/18 06:11 Mylanta Oral Suspension - PO 30 ml TID [facility] Administration Albuterol/Ipratropium 1 amp 12/08/18 13:58 12/10/18 01:45 Duoneb - NEB 1 amp Q4H PRN Administration SHORTNESS OF BREATH Budesonide/Formoterol Fumarate 2 puff 12/08/18 22:00 12/10/18 09:26 Symbicort 160/4.5mcg - IH 2 puff BID [facility] Administration Furosemide 40 mg 12/09/18 10:00 12/10/18 09:26 Lasix - PO 40 mg DAILY [facility] Administration Azithromycin 250 mg/ Dextrose 250 mls @ 250 mls/hr 12/09/18 10:00 12/10/18 09 :26 IVPB 250 mls/hr DAILY [facility] Administration Insulin Aspart 1 vial 12/08/18 22:00 12/10/18 11:38 Novolog Vial Sliding Scale - SQ 8 units ACHS [facility] Administration Protocol Methadone HCl 40 mg/ Methadone 70 mg 12/09/18 10:00 12/10/18 09:25 HCl 30 mg PO 70 mg DAILY [facility] Administration Metoprolol Tartrate 75 mg 12/09/18 10:59 12/10/18 09:26 Lopressor - PO 75 mg BID [facility] Administration Pantoprazole Sodium 40 mg 12/09/18 10:00 12/10/18 09:26 Protonix - PO 40 mg DAILY [facility] Administration Prednisone 40 mg 12/11/18 10:00 Deltasone - PO 12/12/18 10:01 DAILY [facility] Rivaroxaban 20 mg 12/08/18 18:00 12/09/18 17:02 Xarelto - PO 20 mg DAILY@1800 [facility] Administration Current Medications Al Hydroxide/Mg Hydroxide (Mylanta Oral Suspension -) 30 ml PO TID [facility] Last Admin: 12/10/18 06:11 Dose: 30 ml Albuterol/Ipratropium (Duoneb -) 1 amp NEB Q4H PRN PRN Reason: SHORTNESS OF BREATH Last Admin: 12/10/18 01:45 Dose: 1 amp Budesonide/Formoterol Fumarate (Symbicort 160/4.5mcg -) 2 puff IH BID [facility] Last Admin: 12/10/18 09:26 Dose: 2 puff Furosemide (Lasix -) 40 mg PO DAILY [facility] Last Admin: 12/10/18 09:26 Dose: 40 mg Azithromycin 250 mg/ Dextrose 250 mls @ 250 mls/hr IVPB DAILY [facility] Last Admin: 12/10/18 09:26 Dose: 250 mls/hr Insulin Aspart (Novolog Vial Sliding Scale -) 1 vial SQ ACHS [facility]; Protocol Last Admin: 12/10/18 11:38 Dose: 8 units Methadone HCl 40 mg/ Methadone (HCl 30 mg) 70 mg PO DAILY [facility] Last Admin: 12/10/18 09:25 Dose: 70 mg Metoprolol Tartrate (Lopressor -) 75 mg PO BID [facility] Last Admin: 12/10/18 09:26 Dose: 75 mg Pantoprazole Sodium (Protonix -) 40 mg PO DAILY [facility] Last Admin: 12/10/18 09:26 Dose: 40 mg Prednisone (Deltasone -) 40 mg PO DAILY [facility] Stop: 12/12/18 10:01 Rivaroxaban (Xarelto -) 20 mg PO DAILY@1800 [facility] Last Admin: 12/09/18 17:02 Dose: 20 mg Ambulatory Orders Methadone [Dolophine -] 70 mg PO DAILY 09/25/17 Rivaroxaban [Xarelto -] 20 mg PO DAILY 09/25/17 Valsartan 320 mg PO HS 09/25/17 metFORMIN HCL [Glucophage -] 500 mg PO BID 09/25/17 Albuterol Sulfate Inhaler - [Ventolin HFA Inhaler -] 1 - 2 inh PO QID PRN #1 inhaler 01/26/18 Furosemide [Lasix -] 40 mg PO DAILY #30 tablet 11/14/18 Metoprolol Tartrate [Lopressor -] 50 mg PO BID 30 Days #60 tablet 11/14/18 Pantoprazole Sodium [Protonix -] 200 mg PO DAILY 12/09/18 ASSESSMENT/PLAN: Patient is a 63 yo M with history of HFpEF, pulmonary hypertension, Afib on Xarelto, COPD (on home oxygen 2L), NIDDM, previous opioid dependence (on methadone) presented with complaint of shortness of breath, found to be in rapid afib and COPD exacerbation. COPD exacerbation -Chest radiograph shows no acute infiltrates -Duonebs Q4H PRN -Methylprednisone 40mg IV q8H changed to 60mg prednisone today, to dc home on steroid taper 40mg daily x5 days>>>5mg -Symbicort 160-4.5 2 puffs daily -Azithromycin 20mg IV daily, to complete 5 days course with PO azithromycin for total 5 days -Maintain oxygen saturation greater than 90% CHF -BNP 5562 (7376 on prior admission 10/2018) -Lasix 40mg IV daily- cont home dose -ECHO (10/2018) LV normal size, thickness, function. EF 60-65% LA mildly dilated. Trace MR. Pulmonary artery pressure at least 40mmHg. -Daily weights -Strict intake output -Cardiology consult (Dr. Burns) appreciated. Afib -EKG on admission shows Afib with RVR at 128 BPM. 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 -Follow vital signs closely. Anxiety -Psychiatry consult (Dr. Valadez) consult requested -Patient currently denies suicidal, homicidal ideation upon my encounter. -Depakote dcd on pt request -Received 0.25 xanax this am FEN -No IV fluids indicated. -Follow CMP -Diabetic diet Prophylaxis -Patient is on Xarelto 20mg PO daily for Afib Disposition For dc tomorrow and steroid taper and azithro PO for 5 days total Visit type - Emergency Visit Emergency Visit: Yes ED Registration Date: 12/08/18 Care time: The patient presented to the Emergency Department on the above date and was hospitalized for further evaluation of their emergent condition. - New Patient This patient is new to me today: No - Critical Care Critical Care patient: No - Discharge Referral Referred to [facility] No
[2018-12-10] MEDS: RIVAROXABAN 20 MG TABLET PO SCH (17:19)
[2018-12-11 06:00] LABS: BASO % 0.3 % (0-2.0); HEMATOCRIT 35.2 % (35.4-49); HEMOGLOBIN 11.5 GM/dL (11.7-16.9); LYMPH % 5.8 % (8-40); MCH 30.5 pg (25.7-33.7); MCHC 32.6 g/dl (32.0-35.9); MEAN CELL VOLUME 93.6 fl (80-96); MEAN PLT VOLUME 9.1 fl (7.5-11.1); MONO % 8.8 % (3.8-10.2); NEUT % 85.1 % (42.8-82.8); PLATELET COUNT 193 K/MM3 (134-434); RBC 3.76 M/mm3 (4.00-5.60); RDW 15.9 % (11.9-15.9); WHITE BLOOD COUNT 17.5 K/mm3 (4.0-10.0)
[2018-12-11] MEDS: INSULIN SLIDING SCALE (NOVOLOG) 1 VIAL SQ SCH ×2 (06:04→11:39)
[2018-12-11 06:13] LABS: INR 1.62 (0.83-1.09); PROTHROMBIN TIME (PATIENT) 19.2 SEC (9.7-13.0)
[2018-12-11 06:34] LABS: ALK PHOS 124 U/L (45-117); ANION GAP 4 MMOL/L (8-16); BILIRUBIN,TOTAL 0.2 mg/dL (0.2-1); BLOOD UREA NITROGEN 42 mg/dL (7-18); CALCIUM 8.5 mg/dL (8.5-10.1); CHLORIDE 100 mmol/L (98-107); CO2 36 mmol/L (21-32); CREATININE 1.2 mg/dL (0.55-1.3); GLUCOSE,RANDOM 118 mg/dL (74-106); MAGNESIUM 2.7 mg/dL (1.8-2.4); PHOSPHOROUS 3.8 mg/dL (2.5-4.9); POTASSIUM 4.7 mmol/L (3.5-5.1); SGOT/AST 36 U/L (15-37); SGPT/ALT 48 U/L (13-61); SODIUM 140 mmol/L (136-145); TOT PROT 6.1 g/dl (6.4-8.2)
[2018-12-11] MEDS: MAG HYDROX/AL HYDROX/SIMETH 30 ML UNIT-DOSE CUP PO SCH ×2 (06:48→14:27)
[2018-12-11] MEDS: ALBUTEROL SO4 2.5/IPRATROPIUM 0.5 INH SOL 3 ML VIAL.NEB. NEB PRN (07:58)
[2018-12-11] MEDS ORDERED: METHADONE HCL 40 MG DISPERSABLE TABLET ONE (08:24)
[2018-12-11] MEDS ORDERED: METHADONE HCL 10 MG TABLET ONE (08:25)
[2018-12-11] MEDS ORDERED: PT OWN MED DRAWER 7, Y5N ONE (08:26)
[2018-12-11 09:21] VITALS: PULSE 68
[2018-12-11] MEDS: METOPROLOL TARTRATE 50 MG TABLET (FP) PO SCH (09:44)
[2018-12-11] MEDS: METHADONE 40 MG, METHADONE 30 MG PO SCH (09:45)
[2018-12-11] MEDS: PANTOPRAZOLE 40 MG TABLET (FP) PO SCH (09:46)
[2018-12-11] MEDS: AZITHROMYCIN IVPB 250 MG in DEXTROSE 5%-WATER - 250 ML IVPB SCH (09:46)
[2018-12-11] MEDS: FUROSEMIDE 40 MG TABLET (FP) PO SCH (09:53)
[2018-12-11] MEDS: BUDESONIDE/FORMETEROL FUMARATE 160/4.5 mcg INHALER IH SCH (09:54)
--- NOTE | 2018-12-11 09:56 | PN ---
Progress Note, Physician Chief Complaint: Events noted Not in distress History of Present Illness: Patient was seen and examined. Awake and alert. Chart was reviewed Denies chest pain, SOB or palpitations Appears to be in sinus rhythm - Current Medication List Current Medications: Active Medications Al Hydroxide/Mg Hydroxide (Mylanta Oral Suspension -) 30 ml PO TID [facility] Last Admin: 12/11/18 06:48 Dose: 30 ml Albuterol/Ipratropium (Duoneb -) 1 amp NEB Q4H PRN PRN Reason: SHORTNESS OF BREATH Last Admin: 12/11/18 07:58 Dose: 1 amp Budesonide/Formoterol Fumarate (Symbicort 160/4.5mcg -) 2 puff IH BID [facility] Last Admin: 12/11/18 09:54 Dose: 2 puff Furosemide (Lasix -) 40 mg PO DAILY [facility] Last Admin: 12/11/18 09:53 Dose: 40 mg Azithromycin 250 mg/ Dextrose 250 mls @ 250 mls/hr IVPB DAILY [facility] Last Admin: 12/11/18 09:46 Dose: 250 mls/hr Insulin Aspart (Novolog Vial Sliding Scale -) 1 vial SQ ACHS [facility]; Protocol Last Admin: 12/11/18 06:04 Dose: Not Given Methadone HCl 40 mg/ Methadone (HCl 30 mg) 70 mg PO DAILY [facility] Last Admin: 12/11/18 09:45 Dose: 70 mg Metoprolol Tartrate (Lopressor -) 75 mg PO BID [facility] Last Admin: 12/11/18 09:44 Dose: 75 mg Pantoprazole Sodium (Protonix -) 40 mg PO DAILY [facility] Last Admin: 12/11/18 09:46 Dose: 40 mg Prednisone (Deltasone -) 40 mg PO DAILY [facility] Stop: 12/12/18 10:01 Last Admin: 12/11/18 09:46 Dose: 40 mg Rivaroxaban (Xarelto -) 20 mg PO DAILY@1800 [facility] Last Admin: 12/10/18 17:19 Dose: 20 mg - Objective Vital Signs: Vital Signs Temperature 97.8 F 12/11/18 09:19 Pulse Rate 68 12/11/18 09:19 Respiratory Rate 18 12/11/18 09:19 Blood Pressure 135/82 12/11/18 09:19 O2 Sat by Pulse Oximetry (%) 96 12/11/18 09:24 Eyes: Yes: PERRL HENT: Yes: Atraumatic Neck: Yes: Supple Cardiovascular: Yes: Regular Rate and Rhythm, S1, S2 Respiratory: Yes: CTA Bilaterally Gastrointestinal: Yes: Normal Bowel Sounds, Soft. No: Tenderness Edema: No Additional Findings/Remarks: - Review of Systems Constitutional: denies: Chills, Fever Cardiovascular: (-) Chest Pain. (+) Palpitations, (+) Shortness of Breath Respiratory: denies Cough. denies: Hemoptysis, Orthopnea, PND, (+) SOB, SOB on Exertion Gastrointestinal: denies: Abdominal Pain, Constipation, Diarrhea, Melena, Nausea , Rectal Bleeding, Vomiting Neurological: denies: Dizziness, Headache, Seizure, Syncope Labs: CBC, BMP 12/11/18 05:30 12/11/18 05:30 INR, PTT INR 1.62 (0.83-1.09) H 12/11/18 05:30 Problem List - Problems (1) Acute on chronic diastolic CHF (congestive heart failure) Code(s): I50.33 - ACUTE ON CHRONIC DIASTOLIC (CONGESTIVE) HEART FAILURE (2) CHF (congestive heart failure) Code(s): I50.9 - HEART FAILURE, UNSPECIFIED (3) COPD (chronic obstructive pulmonary disease) Code(s): J44.9 - CHRONIC OBSTRUCTIVE PULMONARY DISEASE, UNSPECIFIED Qualifiers: COPD type: unspecified COPD Qualified Code(s): J44.9 - Chronic obstructive pulmonary disease, unspecified (4) Diabetes type 2, controlled Code(s): E11.9 - TYPE 2 DIABETES MELLITUS WITHOUT COMPLICATIONS Qualifiers: Diabetes mellitus skilled nursing insulin use: without skilled nursing use (5) Diastolic dysfunction Code(s): I51.9 - HEART DISEASE, UNSPECIFIED (6) Methadone dependence Code(s): F11.20 - OPIOID DEPENDENCE, UNCOMPLICATED (7) Paroxysmal atrial fibrillation Code(s): I48.0 - PAROXYSMAL ATRIAL FIBRILLATION (8) S/P aorto-bifemoral bypass surgery Code(s): Z95.828 - PRESENCE OF OTHER VASCULAR IMPLANTS AND GRAFTS (9) Shortness of breath Code(s): R06.02 - SHORTNESS OF BREATH Assessment/Plan 1. PAF with RVR [id number] score of 4 on DOAC appears to be sinus rhythm 2. HTN/HCVD 3. Hypercholesterolemia 4. Type 2 DM 5. Acute on chronic LV diastolic failure 6. Acute exacerbation of home O2-dependent COPD 7. Previous substance/Opioid dependence currently on Methadone treatment 8. PAD s/p aortic bifem bypass 9. CAD with mildly abnormal MPI 10. History of C. Diff colitis PLAN: 1. Continue Metoprolol 50 mg BID and Cardizem as needed for rate control. Resume Diovan as tolerated and when feasible 2. Continue Xarelto 20 mg QD 3. Oral diuretics with Lasix 40 mg QD and monitor renal function and electrolytes 4. Bronchodilator, short course of IV steroids with GI protection, empiric antibiotic course and O2 5. Methadone treatment Further plans are to follow. Discharge planning Dorian Figueroa MD
[2018-12-11] MEDS ORDERED: predniSONE 20 MG TABLET (UD) PO SCH (10:00)
--- NOTE | 2018-12-11 13:19 | DS ---
Physical Exam: SUBJECTIVE: Much improved - less SOB and improved Cough. No palps/CP. No orthopnea, PND. No fever/chills OBJECTIVE: Afebrile, Hemodynamically Stable. Last Vital Signs Temp Pulse Resp BP Pulse Ox 97.8 F 68 18 135/82 96 12/11/18 09:19 12/11/18 09:19 12/11/18 09:19 12/11/18 09:12/11/18 09:24 Heart - S1, S2, RRR Lungs- improved air entry - no wheeze. Abdomen - Soft, non-tender. Bowel Sounds normal. Extremities- chronic bilateral LE edema, some excoriation hastings Neuro -AAO x 3. Tone/Power normal all extremities. Laboratory Results - last 24 hr 12/10/18 12/10/18 12/10/18 16:35 17:02 20:51 WBC RBC Hgb Hct MCV MCH MCHC RDW Plt Count MPV Absolute Neuts (auto) Neutrophils % Lymphocytes % Monocytes % Eosinophils % Basophils % Nucleated RBC % PT with INR INR Sodium Potassium 5.0 Chloride Carbon Dioxide Anion Gap BUN Creatinine Creat Clearance w eGFR POC Glucometer 146 236 Random Glucose Calcium Phosphorus Magnesium Total Bilirubin AST ALT Alkaline Phosphatase Total Protein Albumin 12/11/18 12/11/18 12/11/18 01:28 05:30 05:30 WBC 17.5 H RBC 3.76 L Hgb 11.5 L Hct 35.2 L MCV 93.6 MCH 30.5 MCHC 32.6 RDW 15.9 Plt Count 193 MPV 9.1 Absolute Neuts (auto) 14.9 H Neutrophils % 85.1 H Lymphocytes % 5.8 L D Monocytes % 8.8 D Eosinophils % 0.0 Basophils % 0.3 Nucleated RBC % 0 PT with INR 19.20 H INR 1.62 H Sodium Potassium Chloride Carbon Dioxide Anion Gap BUN Creatinine Creat Clearance w eGFR POC Glucometer 145 Random Glucose Calcium Phosphorus Magnesium Total Bilirubin AST ALT Alkaline Phosphatase Total Protein Albumin 12/11/18 12/11/18 12/11/18 05:30 05:49 11:15 WBC RBC Hgb Hct MCV MCH MCHC RDW Plt Count MPV Absolute Neuts (auto) Neutrophils % Lymphocytes % Monocytes % Eosinophils % Basophils % Nucleated RBC % PT with INR INR Sodium 140 Potassium 4.7 Chloride 100 Carbon Dioxide 36 H Anion Gap 4 L BUN 42 H Creatinine 1.2 Creat Clearance w eGFR 61.15 POC Glucometer 117 216 Random Glucose 118 H Calcium 8.5 Phosphorus 3.8 Magnesium 2.7 H Total Bilirubin 0.2 AST 36 ALT 48 Alkaline Phosphatase 124 H Total Protein 6.1 L Albumin 3.0 L Current Medications Generic Name Dose Route Start Last Admin Trade Name Freq PRN Reason Stop Dose Admin Al Hydroxide/Mg Hydroxide 30 ml 12/08/18 21:23 12/11/18 06:48 Mylanta Oral Suspension - PO 30 ml TID [facility] Administration Albuterol/Ipratropium 1 amp 12/08/18 13:58 12/11/18 07:58 Duoneb - NEB 1 amp Q4H PRN Administration SHORTNESS OF BREATH Budesonide/Formoterol Fumarate 2 puff 12/08/18 22:00 12/11/18 09:54 Symbicort 160/4.5mcg - IH 2 puff BID [facility] Administration Furosemide 40 mg 12/09/18 10:00 12/11/18 09:53 Lasix - PO 40 mg DAILY [facility] Administration Azithromycin 250 mg/ Dextrose 250 mls @ 250 mls/hr 12/09/18 10:00 12/11/18 09 :46 IVPB 250 mls/hr DAILY [facility] Administration Insulin Aspart 1 vial 12/08/18 22:00 12/11/18 11:39 Novolog Vial Sliding Scale - SQ 4 units ACHS [facility] Administration Protocol Methadone HCl 40 mg/ Methadone 70 mg 12/09/18 10:00 12/11/18 09:45 HCl 30 mg PO 70 mg DAILY [facility] Administration Metoprolol Tartrate 75 mg 12/09/18 10:59 12/11/18 09:44 Lopressor - PO 75 mg BID [facility] Administration Pantoprazole Sodium 40 mg 12/09/18 10:00 12/11/18 09:46 Protonix - PO 40 mg DAILY [facility] Administration Prednisone 40 mg 12/11/18 10:00 12/11/18 09:46 Deltasone - PO 12/12/18 10:01 40 mg DAILY [facility] Administration Rivaroxaban 20 mg 12/08/18 18:00 12/10/18 17:19 Xarelto - PO 20 mg DAILY@1800 [facility] Administration Date of Admission:12/08/18 Date of Discharge: 12/11/18 Minutes to complete discharge: 40 Discharge Summary Reason For Visit: CONGESTIVE HEART FAILURE,CHRONIC OBSTRUCTIVE PUL Current Active Problems Acute on chronic diastolic CHF (congestive heart failure) (Acute) Impulse control disorder (Acute) Shortness of breath (Acute) COPD (chronic obstructive pulmonary disease) (Chronic) Diastolic dysfunction (Chronic) Leukocytosis (Chronic) Paroxysmal atrial fibrillation (Chronic) Hospital Course: 63 year old male with Chronic Systolic HF, Pulmonary HTN, Atrial Fibrillation on Xarelto, CRF sec to COPD on 2L O2, DM 2, 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 No chest pain, hemoptysis, fever, chills. He was recently discharged 11/14/18 after admission for COPD and CHF exacerbations. He was treated for COPD exacerbation and RVR and is currently medically optimized for discharge. 1. Acute on Chronic Respiratory Failure secondary to Acute Exacerbation COPD - resolving CXR - no infiltrate. Influenza negative. Continue supplemental O2, Bronchodilator Nebs, Azithromycin for 2 more days with slow Prednisone taper as instructed. Comfortable on ambulation and stable respiratory status, optimized for discharge. Pulmonary follow up on discharge. 2. Paroxysmal Atrial Fibrillation with RVR, now in SR ECG - Atrial Fibrillation, RV TropI neg, asymptomatic Metoprolol dose increased to 75mg BID. Continue Xarelto. Evaluated by Cardiology - for out-patient follow up. 3. Chronic Diastolic CHF No convincing evidence of acute decompensation. Received IV Lasix in ED. Continue home dose oral Lasix. BNP elevated, but less than on prior admission. CXR - no congestion/effusion Current weight less than on prior discharge - devon follow with PCP and Cardiology on discharge. 4. Pulmonary HTN - on Home O2. 5. DM 2 - maintain on sliding scale during in-patient stay. 6. Hx Substance/Opiate abuse - on Methadone. 7. GERD - started on PPI as he complained of some epigastric burning, now resolved. 8. Hyperkalemia - resolved s/p Kayexalate. He was evaluated by Psychiatry on this admission for anxiety/impulsive behavior - recommended to start Depakote, which he declined. He is currently medically stable for discharge with no evidence of depression/delusions/sami/ hallucinations/suicidal or homicidal behavior. Condition: Improved - Instructions Diet, Activity, Other Instructions: You were admitted for shortness of breath. You were treated for worsening of your COPD You received azithromycin while here, you will continue azithromycin by mouth for the next 2 days You were found to be in afib with a rapid heart rate You received diltiazem while here to help control your heart rate Your metoprolol dose has been increased to 75mg twice a day You may discuss further with your uke driver about control of your heart rate We are putting you on an oral steroid taper: Start on 12/11/18 to end on 12/30/18 Take prednisone 40mg by mouth daily for 5 days then prednisone 30mg by mouth daily for 5 days then prednisone 20mg by mouth daily for 5 days then prednisone 10mg by mouth daily for 5 days We are adding an inhaler- symbicort- take 2 puffs everyday We are also putting you on medication to protect your stomach while on the steroids- protonix at 40mg by mouth We are holding valsartan as your potassium level was high while in the hospital Discuss with your uke driver/primary care doctor about resuming it Continue your other medications as prescribed Continue to use your home oxygen as prescribed Follow up with your primary care doctor, 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 in one week If you think your symptoms are not getting better, with worsening chest pain, and shortness of breath despite use of the medications, please go to the nearest emergency room Referrals: [facility] [place] [facility] [place] [Provider Group] (You may call at the number above to set up appointment with Dr Zapien on Wednesday 9am to 11.30am or Dr Garza on 1pm to 3.30pm if you do not have a primary care physician) Lei Burns MD [Staff Physician] - 1 Week (Discuss agent for rate control) Vitaliy Gómez MD, MD [Staff Physician] - 1 Week Disposition: HOME - Home Medications Comprehensive Discharge Medication List: Ambulatory Orders Methadone [Dolophine -] 70 mg PO DAILY 09/25/17 Rivaroxaban [Xarelto -] 20 mg PO DAILY 09/25/17 metFORMIN HCL [Glucophage -] 500 mg PO BID 09/25/17 Albuterol Sulfate Inhaler - [Ventolin HFA Inhaler -] 1 - 2 inh PO QID PRN #1 inhaler 01/26/18 Furosemide [Lasix -] 40 mg PO DAILY #30 tablet 11/14/18 Azithromycin 250 mg PO DAILY 2 Days #2 tablet 12/10/18 Budesonide/Formeterol Fumarate [SYMBICORT 160/4.5mcg -] 2 puff IH BID #7 inhaler 12/10/18 Metoprolol Tartrate [Lopressor -] 75 mg PO BID #180 tablet 12/10/18 Pantoprazole Sodium [Protonix -] 40 mg PO DAILY #30 tablet.ec 12/10/18 Prednisone See Taper PO DAILY #50 tablet 12/10/18 This patient is new to me today: No Emergency Visit: Yes ED Registration Date: 12/08/18 Care time: The patient presented to the Emergency Department on the above date and was hospitalized for further evaluation of their emergent condition. Critical Care patient: No - Discharge Referral Referred to [facility] No
[2018-12-11 14:03] VITALS: BP 126/94; TEMP 98
== END 2018-12-11 16:36 | disposition home or self-care (01) | DRG 133 ==
LOC: JER 06:46 → JERBED 12:07 → J4S 19:30
DX: J96.20 Acute and chronic respiratory failure, unspecified whether with hypoxia or hypercapnia (principal); I11.0 Hypertensive heart disease with heart failure; J44.1 Chronic obstructive pulmonary disease with (acute) exacerbation; Z99.81 Dependence on supplemental oxygen; F11.20 Opioid dependence, uncomplicated; E11.51 Type 2 diabetes mellitus with diabetic peripheral angiopathy without gangrene; I50.32 Chronic diastolic (congestive) heart failure; I27.20 Pulmonary hypertension, unspecified; I48.1 Persistent atrial fibrillation; E87.5 Hyperkalemia; Z79.01 Long term (current) use of anticoagulants; J44.9 Chronic obstructive pulmonary disease, unspecified; Z88.0 Allergy status to penicillin; E78.5 Hyperlipidemia, unspecified; K21.9 Gastro-esophageal reflux disease without esophagitis; Z79.84 Long term (current) use of oral hypoglycemic drugs; F41.9 Anxiety disorder, unspecified; F63.9 Impulse disorder, unspecified; Z79.4 Long term (current) use of insulin
CPT/HCPCS: 36415; 71045-TC-FY; 80053; 80061; 82962; 83036; 83721; 83735; 83880; 84100; 84132; 84443; 84484; 85025; 85027; 85610; 87804; 93005; 93010; 94640; 99285-25

== ENCOUNTER 2018-12-15 07:33 | Day surgery (SDC) | payer OTHER ==
[2018-12-14 13:14] VITALS: BMI 30.1
--- NOTE | 2018-12-14 17:32 | HP ---
- Patient Scheduled date of Surgery: 12/15/18 Scheduled Surgical Procedure: Phacoemulsification and cataract extraction with PCIOL Affected Eye: Left (MATURE to HYPERMATURE) Chief Complaint (Indication for surgery): Decreased vision affecting ADLs, Decreased vision impairing reading - Ocular History Other Eye History: Other (none) Eye Medications: vigamox Previous Eye Surgery: none - Medical History Illnesses: Hypertension, Diabetes, Other (COPD on home O2 , PAD s/p AAA bypass, CHF , afib) Current Medications: Ambulatory Orders Methadone [Dolophine -] 70 mg PO DAILY 09/25/17 Rivaroxaban [Xarelto -] 20 mg PO DAILY 09/25/17 metFORMIN HCL [Glucophage -] 500 mg PO BID 09/25/17 Albuterol Sulfate Inhaler - [Ventolin HFA Inhaler -] 1 - 2 inh PO QID PRN #1 inhaler 01/26/18 Furosemide [Lasix -] 40 mg PO DAILY #30 tablet 11/14/18 Azithromycin 250 mg PO DAILY 2 Days #2 tablet 12/10/18 Budesonide/Formeterol Fumarate [SYMBICORT 160/4.5mcg -] 2 puff IH BID #7 inhaler 12/10/18 Metoprolol Tartrate [Lopressor -] 75 mg PO BID #180 tablet 12/10/18 Pantoprazole Sodium [Protonix -] 40 mg PO DAILY #30 tablet.ec 12/10/18 Prednisone See Taper PO DAILY #50 tablet 12/10/18 Allergies/Adverse Reactions: Allergies Allergy/AdvReac Type Severity Reaction Status Date / Time Penicillins Allergy "rash" Verified 12/14/18 13:14 Ocular Examination - Best Corrected Visual Acuity Distance: Right eye: CF 8 feet Distance: Left eye: HM - External/Slit Lamp Examination Abnormalities: none - Intraocular Pressure Intraocular Pressure - Right eye: 18 Intraocular Pressure-Left eye: 18 - Lens Lens: 4+ white anteriorly 4+ brunescence posteriorly - Vitreous/Retina Vitreous/Retina: no view, retina flat on bscan - Special Examination M - Right eye: -3.00 -0.75 x 090 M - Left eye: no reflex K - Right eye: 43.5/43.75 x 92 K - Left eye: 43.25/43.50 x125 AL - Right eye: 23.52 AL - Left eye: 23.78 IOL bag: +20.50 AUOOTO IOL sulcus: +19.50 [id number] IOL AC: +17.0 MTA 4UO - Impression Impression: Cataract Left Eye (Mature to hypermature and miosis left eye) - Plan Plan: Phacoemulsification and cataract extraction - IOL Left eye (probable conversion to ECCE) Post-hospital care will be provided in office on: 12/16/18
[~2018-12-15 07:33] MED LIST: ACETAMINOPHEN 325 MG TABLET (FP) PO PRN; CIPROFLOXACIN HCL 0.3% OPHTH 2.5ML BOTTLE OP SCH; KETOROLAC TROMETHAMINE 0.5% EYE DROP 1 DROP DROPS OP SCH; PHENYLEPHRINE 2.5% OPHTH SOLN 15 ML BOTTLE OP SCH; TROPICAMIDE 1% OPHTH SOLN 15 ML BOTTLE OP SCH
[2018-12-15 08:35] VITALS: BP 138/90; PULSE 138; TEMP 98.4
== END 2018-12-15 09:00 | disposition home or self-care (01) ==
LOC: JASU-SURG 07:33
PROVIDERS: ATTEND Ophthalmology
DX: Z53.8 Procedure and treatment not carried out for other reasons (principal)
CPT/HCPCS: 82962

== ENCOUNTER 2018-12-17 20:10 | Inpatient (IN) | payer OTHER ==
--- NOTE | 2018-12-17 20:17 | PDOC ---
History of Present Illness - General Stated Complaint: Shortness of Breath Time Seen by Provider: 12/17/18 20:17 - History of Present Illness Initial Comments: 12/17/18 20:43 The patient is a 63 year old male with a history of HTN, HLD, DM, CHF, COPD, Afib on Xeralto, Former IV drug use on Methadone who presents for evaluation of shortness of breath. The patient notes that he was recently discharged from the hospital 5 days ago after being admitted for a COPD/CHF exacerbation. He states that since that time, he has developed worsening shortness of breath at rest with an associated productive cough prompting his presentation to the ED for further evaluation. He notes that he is currently on a steroid taper at home, but reports continued symptoms despite his home medications. He otherwise denies fevers, chills, chest pain, nausea, vomiting, abdominal pain, or changes with urination or bowel movements. Past History - Past Medical History Allergies/Adverse Reactions: Allergies Allergy/AdvReac Type Severity Reaction Status Date / Time Penicillins Allergy "rash" Verified 12/17/18 20:18 Home Medications: Ambulatory Orders Methadone [Dolophine -] 65 mg PO DAILY 09/25/17 Rivaroxaban [Xarelto -] 20 mg PO DAILY 09/25/17 metFORMIN HCL [Glucophage -] 500 mg PO BID 09/25/17 Albuterol Sulfate Inhaler - [Ventolin HFA Inhaler -] 1 - 2 inh PO QID PRN #1 inhaler 01/26/18 Furosemide [Lasix -] 40 mg PO DAILY #30 tablet 11/14/18 Budesonide/Formeterol Fumarate [SYMBICORT 160/4.5mcg -] 2 puff IH BID #7 inhaler 12/10/18 Metoprolol Tartrate [Lopressor -] 75 mg PO BID #180 tablet 12/10/18 Pantoprazole Sodium [Protonix -] 40 mg PO DAILY #30 tablet.ec 12/10/18 Prednisone See Taper PO DAILY #50 tablet 12/10/18 Anemia: No Asthma: No Cancer: No Cardiac Disorders: Yes (CHF o2 dependent) CVA: No COPD: Yes CHF: Yes Dementia: No Diabetes: Yes GI Disorders: Yes (acid reflux) Disorders: No HTN: Yes Hypercholesterolemia: Yes Liver Disease: No Seizures: No Thyroid Disease: No - Surgical History Abdominal Surgery: Yes (AAA repair) Cardiac Surgery: Yes - Immunization History Immunization Up to Date: No - Suicide/Smoking/Psychosocial Hx Smoking History: Former smoker Have you smoked in the past 12 months: No Number of Cigarettes Smoked Daily: 10 If you are a former smoker, when did you quit?: 2 years Cigars Per Day: 0 Hx Alcohol Use: No Drug/Substance Use Hx: No Substance Use Type: Heroin Hx Substance Use Treatment: Yes Review of Systems - Review of Systems Comments:: 12/17/18 20:45 Constitutional: No fevers, chills, fatigue, malaise HEENT: No Rhinorrhea, nasal congestion, visual changes Cardiovascular: No chest pain, syncope, palpitations, lightheadedness Respiratory: Cough, SOB, No Hemoptysis, Gastrointestinal: No Abdominal pain, Nausea, Vomiting, Constipation, Diarrhea, Melena Genitourinary: No Dysuria, Frequency, Urgency, Hesitancy, Hematuria, Flank pain Musculoskeletal: No Myalgia, arthralgia Skin: No rashes, itching, bruising, pallor Neurologic: No Headache, Dizziness, Numbness, Weakness, or Tingling Psychiatric: No Hallucinations. No SI or HI *Physical Exam - Physical Exam Comments: 12/17/18 20:46 General Appearance: Nourished. No Apparent Distress HEENT: EOMI, FLEX. No Pharyngeal Erythema, Tonsillar Exudate, Tonsillar Erythema Neck: No Cervical Lymphadenopathy Respiratory/Chest: Bibasilar rales noted on exam. No Crackles, Rhonchi, Wheezing Cardiovascular: Irregularly irregular rhythm, Tachycardic rate. No Murmur, Gallops, Rubs Gastrointestinal/Abdominal: Normal Bowel Sounds, Soft. No Guarding, Rebound, Tenderness Musculoskeletal: No CVA Tenderness Extremity: 1+ pitting edema in the lower extremities bilaterally. Normal Capillary Refill Integumentary: Normal Color, Dry, Warm Neurologic: Fully Oriented, Alert, Normal Mood/Affect, Normal Response, Heart Score/ECG Review #1 ECG reviewed & interpreted by me at: 21:01 General ECG Interpretation: Normal Intervals, No acute ischemic changes 12/17/18 21:02 Atrial fibrillation with rapid ventricular response HR 128 QRS 68 QTc 440 ED Treatment Course - LABORATORY CBC & Chemistry Diagram: 12/17/18 20:40 12/17/18 20:40 Medical Decision Making - Critical Care Time Total Critical Care Time (minutes): 40 Critical Care Statement: The care of this patient involved high complexity decision making to prevent further life threatening deterioration of the patient 's condition and/or to evaluate & treat vital organ system(s) failure or risk of failure. - Medical Decision Making 12/17/18 20:47 The patient is a 63 year old male with a history of HTN, HLD, DM, CHF, COPD, Afib on Xeralto who presents for evaluation of shortness of breath. Differential includes but is not limited to: ACS, COPD, CHF, Afib with RVR, Infectious, Metabolic Derangement. The patient appears to be in afib with RVR on the monitor. We will obtain a cbc, cmp, troponin, bnp, ekg, chest plain film to evaluate further. We will treat with iv metoprolol as the patient is on metoprolol at home. We will continue to monitor and reassess while here in the ED. The patient will likely require admission for further management. 12/17/18 21:24 CBC demonstrates a wbc to 28 however it is possibly due to the patient's current steroid course, although we have sent blood cultures and will treat with doxycyline. CMP is unremarkable. Troponin is elevated to 0.25 likely due to the patient's afib with rvr. BNP is elevated to 4000s. Chest plain film is unchanged. The patient's HR has improved to 110-115 after two iv pushes of metoprolol. He will require admission for further management. 12/17/18 21:30 We discussed the case with the admitting team who accepted the patient for admission. *DC/Admit/Observation/Transfer Diagnosis at time of Disposition: Atrial fibrillation with rapid ventricular response - Discharge Dispostion Condition at time of disposition: Stable Decision to Admit order: Yes - Referrals - Patient Instructions - Post Discharge Activity
[2018-12-17 20:18] VITALS: BMI 30.1
[2018-12-17] MEDS ORDERED: METOPROLOL TARTRATE 5 MG/5 ML VIAL IVPUSH ONE ×3 (20:41→23:45)
[2018-12-17] MEDS ORDERED: METOPROLOL TARTRATE 5 MG/5 ML VIAL ONE ×2 (20:47→20:58)
[2018-12-17 20:53] LABS: BASO % 0.7 % (0-2.0); EOS % 0.2 % (0-4.5); HEMATOCRIT 45.7 % (35.4-49); HEMOGLOBIN 14.3 GM/dL (11.7-16.9); LYMPH % 4.2 % (8-40); MCH 29.9 pg (25.7-33.7); MCHC 31.3 g/dl (32.0-35.9); MEAN CELL VOLUME 95.3 fl (80-96); MEAN PLT VOLUME 9.6 fl (7.5-11.1); MONO % 6.6 % (3.8-10.2); NEUT % 88.3 % (42.8-82.8); PLATELET COUNT 245 K/MM3 (134-434); RBC 4.79 M/mm3 (4.00-5.60); RDW 16.9 % (11.9-15.9); WHITE BLOOD COUNT 28.2 K/mm3 (4.0-10.0)
[2018-12-17] MEDS ORDERED: DOXYCYCLINE INJECTION 100 MG in DEXTROSE 5%-WATER - 150 ML IVPB ONE (20:53)
[2018-12-17] MEDS ORDERED: DOXYCYCLINE HYCLATE 100 MG VIAL ONE (20:59)
[2018-12-17 21:05] LABS: INR 1.39 (0.83-1.09); PROTHROMBIN TIME (PATIENT) 16.4 SEC (9.7-13.0)
[2018-12-17 21:07] LABS: ACTIVATED PTT 31.8 SECONDS (25.2-36.5)
[2018-12-17 21:17] LABS: ALBUMIN 3.6 g/dl (3.4-5.0); ALK PHOS 142 U/L (45-117); ANION GAP 5 MMOL/L (8-16); BILIRUBIN,TOTAL 0.6 mg/dL (0.2-1); BLOOD UREA NITROGEN 26 mg/dL (7-18); CALCIUM 9.3 mg/dL (8.5-10.1); CHLORIDE 99 mmol/L (98-107); CO2 35 mmol/L (21-32); CREATININE 1.2 mg/dL (0.55-1.3); GLUCOSE,RANDOM 142 mg/dL (74-106); N-TERMINAL BNP 4025.6 pg/ml (5-125); SGOT/AST 17 U/L (15-37); SGPT/ALT 67 U/L (13-61); SODIUM 138 mmol/L (136-145)
[2018-12-17] MEDS ORDERED: ASPIRIN 81 MG CHEWABLE TABLETS PO ONE (21:19)
[2018-12-17] MEDS ORDERED: SODIUM CHLORIDE 500 ML IV STA (21:24)
[2018-12-17] MEDS ORDERED: METOPROLOL TARTRATE 50 MG TABLET (FP) PO ONE (21:33)
[2018-12-17] MEDS ORDERED: ASPIRIN 325 MG TABLET ONE (21:40)
[2018-12-17] MEDS ORDERED: METOPROLOL TARTRATE 25 MG TABLET (FP) ONE ×2 (21:41→22:37)
--- NOTE | 2018-12-17 22:01 | PN ---
Teaching Attending Note Name of Resident: Manuel Patel ATTENDING PHYSICIAN STATEMENT I saw and evaluated the patient. I reviewed the resident's note and discussed the case with the resident. I agree with the resident's findings and plan as documented. SUBJECTIVE: Seen and examined; please see resident note for further historical documentation. Briefly, this is a 63 y/o male with a PMH as documented presenting to the ER with a CC of shortness of breath; he complains of cough with changes in sputum and would be consistent with COPD exacerbation; he was recently treated for this and discharged on a prednisone taper which he is completing; remains on his baseline 2L ATC. He also was noted to in Afib with RVR in the ER with HR to 160s; resolved to low 100s after 2 pushes of 5 metoprolol (last admission BB was increased to 75 BID). Getting home meds now. His symptoms have somewhat improved since presenting. He endorses medication complaince. Noted that his BNP is elevated but less than it was last time, also he has a marked leukocytosis but is on steroids. Troponemia noted but no c /o CP, etc with no lianne ST-T changes. Reviewed discharge summary and medication list. Will be brought to the medicine service on tele. 10 sys ROS done and negative aside from HPI PMH, PSH, FH, SH reviewed Home Medications Medication Instructions Recorded Methadone [Dolophine -] 65 mg PO DAILY 09/25/17 Rivaroxaban [Xarelto -] 20 mg PO DAILY 09/25/17 metFORMIN HCL [Glucophage -] 500 mg PO BID 09/25/17 Albuterol Sulfate Inhaler - 1 - 2 inh PO QID PRN #1 inhaler 01/26/18 [Ventolin HFA Inhaler -] Furosemide [Lasix -] 40 mg PO DAILY #30 tablet 11/14/18 Budesonide/Formeterol Fumarate 2 puff IH BID #7 inhaler 12/10/18 [SYMBICORT 160/4.5mcg -] Metoprolol Tartrate [Lopressor -] 75 mg PO BID #180 tablet 12/10/18 Pantoprazole Sodium [Protonix -] 40 mg PO DAILY #30 tablet.ec 12/10/18 Prednisone See Taper PO DAILY #50 tablet 12/10/18 OBJECTIVE: VS, labs, imaging reviewed EKG reviewed; Afib with RVR Echo 11/15 reviewed; normal LVEF with mild LAE No PFTs available ASSESSMENT AND PLAN: Patient presents with SOB found to have Afib with RVR and likely recurring COPD exacerbation 1) Afib with RVR (CV=4) -Got IV MT in the ER and his PM dose but was still 110s; giving additional 25 PO and changing him to 100 BID. Continue xarelto. His international project manager has been consulted; appreciate expert opinion. Recent echo reviewed. Rate-related demand could lead to the elevated BNP and troponemia; doesn't appear to be in CHF with his BNP actually lower this time than last. If RVR persists as normal EF could try dilt if max out with metoprolol as normal lvef doesn't preclude use of negative inotrope. 2) SOB -Likely 2/2 COPD, but may have some rate related issues. As stated, BNP is lower than it was last time. Holding on diuresis for now. -This has been worse over days as opposed to sudden; less likely customer service representative teller of ACS given clinical picture. 3) Likely COPD exacerbation (Acute on Chronic Respiratory Failure) -Scheduling nebs with PRN albuterol; placing on IV solumed 60 q6h and monitoring O2 sats. -IV Levaquin as multiple exacerbations this year, etc. Checked QTc. -Consulting Dr. Coleman. He will need outpatient pulmonary function tests. -Trigger is unclear; states he doesnt smoke but is constantly around secondhand smoke which is a possibility. Will check flu and viral pcr. 4) Troponemia -Will trend down; likely subendocardial ischemia 2/2 RVR -No chest pain; SOB not-sudden and doesn't sound like ACS sx. Can monitor tele and if any sx get EKG. CV will follow; appreciate expert input. 5) Elevated BNP -Likely due to strain from the RVR; he is not in lianne CHF exacerbation and BNP was higher last admission. If no improvement of his SOB with tx of COPD consider diuresis in AM but he is already improved. 4) DM -SSI while inpt; hold PO antihyperglycemics 5) Hx Substance Abuse on Methadone -Verify and continue home dose 6) Leukocytosis -Likely 2/2 steroid taper. Monitor; check flu. Full COde
[2018-12-17 22:02] LABS: PLATELET ESTIMATE ADEQUATE
[2018-12-17] MEDS ORDERED: METOPROLOL TARTRATE 25 MG TABLET (FP) PO SCH ×2 (22:20→22:30)
--- NOTE | 2018-12-17 22:24 | HP ---
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 Patient was recently discharged on 12/11 because of COPD exacerbation and RVR. On discharge he was sinus, completed Azithromycin antibiotic course and Lopressor increased to 75mg BID. He was also discharged on a 20 day steroid taper. Patient states his symptoms have not resolved since being discharged last week. He denies chest pain, nausea, vomiting, fevers, chills, dizziness, diarrhea, chills, edema. ER course was notable for: (1) Afib W RVR Rate in 160s (2)75mg PO Lopressor,5mg IV lopressor x 2 (3)Doxycycline. (patient with a penicillin allergy) Recent Travel: denies PAST MEDICAL HISTORY: per HPI Social History: Smoking: former smoker quit 3 years ago Alcohol:denies Drugs: former IV drug user, currently denies Family History: Allergies Penicillins Allergy (Verified 12/17/18 20:18) "rash" HOME MEDICATIONS: Home Medications Medication Instructions Recorded Methadone [Dolophine -] 65 mg PO DAILY 09/25/17 Rivaroxaban [Xarelto -] 20 mg PO DAILY 09/25/17 metFORMIN HCL [Glucophage -] 500 mg PO BID 09/25/17 Albuterol Sulfate Inhaler - 1 - 2 inh PO QID PRN #1 inhaler 01/26/18 [Ventolin HFA Inhaler -] Furosemide [Lasix -] 40 mg PO DAILY #30 tablet 11/14/18 Budesonide/Formeterol Fumarate 2 puff IH BID #7 inhaler 12/10/18 [SYMBICORT 160/4.5mcg -] Metoprolol Tartrate [Lopressor -] 75 mg PO BID #180 tablet 12/10/18 Pantoprazole Sodium [Protonix -] 40 mg PO DAILY #30 tablet.ec 12/10/18 Prednisone See Taper PO DAILY #50 tablet 12/10/18 REVIEW OF SYSTEMS CONSTITUTIONAL: Absent: fever, chills, diaphoresis, generalized weakness, malaise, loss of appetite, weight change HEENT: Absent: rhinorrhea, nasal congestion, throat pain, throat swelling, difficulty swallowing, mouth swelling, ear pain, eye pain, visual changes CARDIOVASCULAR: Absent: chest pain, syncope, palpitations, irregular heart rate, lightheadedness , peripheral edema RESPIRATORY: cough and SOB Absent:dyspnea with exertion, orthopnea, wheezing, stridor, hemoptysis GASTROINTESTINAL: Absent: abdominal pain, abdominal distension, nausea, vomiting, diarrhea, constipation, melena, hematochezia MUSCULOSKELETAL: Absent: myalgia, arthralgia, joint swelling, back pain, neck pain SKIN: Absent: rash, itching, pallor NEUROLOGIC: Absent: headache, focal weakness or paresthesias, dizziness, unsteady gait, seizure, mental status changes, bladder or bowel incontinence PSYCHIATRIC: Absent: anxiety, depression, suicidal or homicidal ideation, hallucinations. PHYSICAL EXAMINATION Vital Signs - 24 hr 12/17/18 12/17/18 12/17/18 20:13 20:51 20:53 Temperature 99.1 F 97.9 F Pulse Rate 126 H Pulse Rate [ 82 Left Apical] Respiratory 22 H 20 Rate Blood Pressure 128/94 138/112 H Blood Pressure 113/95 [Right Arm] O2 Sat by Pulse 100 98 Oximetry (%) 12/17/18 12/17/18 12/17/18 21:08 21:20 21:46 Temperature 98.0 F Pulse Rate Pulse Rate [ 85 113 H Left Apical] Respiratory 20 20 Rate Blood Pressure 113/95 Blood Pressure 130/98 124/81 [Right Arm] O2 Sat by Pulse 98 96 Oximetry (%) 12/17/18 21:50 Temperature Pulse Rate 114 H Pulse Rate [ Left Apical] Respiratory Rate Blood Pressure Blood Pressure [Right Arm] O2 Sat by Pulse 96 Oximetry (%) GENERAL: The patient is awake, alert, and fully oriented, in no acute distress. EYES: PERRL, ENT: moist mucous membranes. LUNGS: decreased breath sounds, no wheezing or crackles HEART: Regular rate and rhythm, S1, S2 ABDOMEN: Soft, nontender, nondistended, normoactive bowel sounds EXTREMITIES: 2+ pulses, well-perfused, excoriation hastings, chronic b/l non pitting edema with venous stasis and b/l anterior galeano venous dermatitis . NEUROLOGICAL: Cranial nerves II through XII grossly intact. Normal speech, gait not observed. PSYCH: Normal mood, normal affect. Laboratory Results - last 24 hr 12/17/18 12/17/1812/17/19 20:40 20:40 20:40 WBC 28.2 H RBC 4.79 Hgb 14.3 Hct 45.7 D MCV 95.3 MCH 29.9 MCHC 31.3 L RDW 16.9 H Plt Count 245 D MPV 9.6 Absolute Neuts (auto) 24.9 H Neutrophils % 88.3 H Neutrophils % (Manual) 88.0 H Band Neutrophils % 4.0 Lymphocytes % 4.2 L D Lymphocytes % (Manual) 3.0 L Monocytes % 6.6 Monocytes % (Manual) 5 Eosinophils % 0.2 D Basophils % 0.7 Nucleated RBC % 0 Platelet Estimate Adequate Platelet Comment No clumping noted PT with INR 16.40 H INR 1.39 H PTT (Actin FS) 31.8 Sodium 138 Potassium 5.0 Chloride 99 Carbon Dioxide 35 H Anion Gap 5 L BUN 26 H Creatinine 1.2 Creat Clearance w eGFR 61.15 Random Glucose 142 H Calcium 9.3 Total Bilirubin 0.6 AST 17 ALT 67 H Alkaline Phosphatase 142 H Creatine Kinase 27 Troponin I 0.25 H B-Natriuretic Peptide 4025.6 H Total Protein 7.0 Albumin 3.6 ASSESSMENT/PLAN:' Patient is a 63 yo M with history of HFpEF, pulmonary hypertension, Afib on Xarelto, COPD (on home oxygen 2L), NIDDM, previous opioid dependence (on methadone) presented with complaint of shortness of breath, found to be in rapid afib and COPD exacerbation. #Afib w RVR -EKG : Afib with RVR at 128 BPM. -Cont. 75mg Metoprolol BID. -Will order 1x Lopressor 25mg -Increase to 100mg BID if needed -Cont. Xarelto 20mg PO daily -Tele monitoring -Cardio consulted Dr. Burns -Trop 0.25, repeat 2nd set #COPD exacerbation -Duonebs Q4H QID -Albuterol PRN -Supplemental o2 -Chest radiograph shows no acute infiltrates -Methylprednisone 60mg IV q6h -1x Doxy in ED. Now D/c -Start Levaquin because of recurrent COPD exacerbation. -Maintain oxygen saturation greater than 90% -FU Influenza and Respiratory viral panel #Leukocytosis -likely from steroid use #Hx of CHF -Lasix 40mg IV daily- cont home dose -ECHO (10/2018) LV normal size, thickness, function. EF 60-65% LA mildly dilated. Trace MR. Pulmonary artery pressure at least 40mmHg. -Cardiology consult (Dr. Burns) appreciated. #History of opioid dependence -Methadone 70mg PO daily #GERD -Protonix 40mg PO daily #DM -HbA1c 6.5% -Hold home meds -Insulin sliding scale ACHS -Fingerstick blood glucose monitoring ACHS #HTN -Monitor BP. #FEN -No IV fluids indicated. -Follow CMP -Diabetic diet #DVT Ppx -Xarelto 20mg Visit type - Emergency Visit Emergency Visit: Yes ED Registration Date: 12/17/18 Care time: The patient presented to the Emergency Department on the above date and was hospitalized for further evaluation of their emergent condition. - New Patient This patient is new to me today: Yes Date on this admission: 12/18/18 - Critical Care Critical Care patient: No
[2018-12-17] MEDS ORDERED: METOPROLOL TARTRATE 25 MG TABLET (FP) PO ONE (22:30)
[2018-12-17] MEDS ORDERED: ALBUTEROL SO4 0.083% IH SOL 2.5 MG/3 ML VIAL.NEB. NEB PRN (22:35)
[2018-12-18] MEDS ORDERED: METOPROLOL TARTRATE 5 MG/5 ML VIAL IVPUSH ONE (00:13)
[2018-12-18] MEDS ORDERED: dilTIAZem HCL 50 MG/10 ML - 10 ML VIAL IVPUSH ONE ×2 (01:23→04:28)
[2018-12-18] MEDS: methylPREDNISolone NA SUCC 40 MG/1 ML VIAL IVPUSH SCH ×3 (02:17→17:23)
[2018-12-18] MEDS ORDERED: RANITIDINE HCL 150 MG TABLET (FP) PO ONE (04:38)
[2018-12-18] MEDS ORDERED: dilTIAZem HCL 60 MG TABLET (FP) PO ONE (04:48)
[2018-12-18] MEDS ORDERED: DILTIAZEM INJECTION 125 MG in SODIUM CHLORIDE 100 ML IVPB SCH (06:00)
[2018-12-18] MEDS ORDERED: HEPARIN NA (PORCINE) 5,000 UNITS/ML 1ML VIAL SQ SCH (06:00)
[2018-12-18] MEDS: INSULIN SLIDING SCALE (NOVOLOG) 1 VIAL SQ SCH ×4 (06:57→23:31)
--- NOTE | 2018-12-18 07:20 | PN ---
Physical Exam: SUBJECTIVE: Patient seen and examined. Reports that he started having palpitations snce Wednesday (a day after discharge), although he reports being compliant on his medications. Pt was sent home on a dteroid taper for COPD that he was still on prior to this visit. No chest pain, but reports the palpitations , no new leg swellings. Was started on diltiazem drip over night to help in rate control. Now in sinus rhythm. OBJECTIVE: Vital Signs Period Temp Pulse Resp BP Sys/Chatterjee Pulse Ox Last 24 Hr 97.9 F-99.1 F 82-160 18- 110-142/63-112 95-100 Vital Signs Temp 99.2 F 12/18/18 08:00 Pulse 54 L 12/18/18 10:28 Resp 22 H 12/18/18 10:28 BP 115/82 12/18/18 10:28 Pulse Ox 97 12/17/18 23:52 Intake & Output 12/17/18 12/17/18 12/18/18 11:59 23:59 11:59 Intake Total 5 Balance 5 Weight 89.811 kg 89.811 kg Intake: IV 5 Cardizem Injection - 125 5 mg In Normal Saline - 100 ml @ 5 MG/HR 5 mls/hr IVPB TITR DOMINIC Rx#: [id number] Other: Voiding Method Urinal Height 1.73 m Body Mass Index (BMI) 30.1 Weight Measurement Method Standing Scale Standing Scale Weight Measurement Method Est/Stated by Patient GENERAL: The patient is awake, alert, and fully oriented, in no acute respiratory distress. HEAD: Normal with no signs of trauma. EYES: PERRL, extraocular movements intact ENT: Ears normal, nares patent, oropharynx clear without exudates, moist mucous membranes, NC. LUNGS: Breath sounds equal but reduced bilaterally, no wheezes, no crackles HEART: Regular rate and rhythm, S1, S2 ABDOMEN: Soft, nontender, nondistended, normoactive bowel sounds EXTREMITIES: 2+ pulses, warm, well-perfused, venous dermatitis bilaterally, loss of sensation b/l lower extremities, no obvious ulcers, onychomycosis b/l, no edema. NEUROLOGICAL: Cranial nerves II through XII grossly intact. Normal speech, gait not observed. CBC, BMP 12/18/18 07:30 12/18/18 07:30 Laboratory Results - last 24 hr 12/17/18 12/17/18 12/17/18 20:40 20:40 20:40 WBC 28.2 H RBC 4.79 Hgb 14.3 Hct 45.7 D MCV 95.3 MCH 29.9 MCHC 31.3 L RDW 16.9 H Plt Count 245 D MPV 9.6 Absolute Neuts (auto) 24.9 H Neutrophils % 88.3 H Neutrophils % (Manual) 88.0 H Band Neutrophils % 4.0 Lymphocytes % 4.2 L D Lymphocytes % (Manual) 3.0 L Monocytes % 6.6 Monocytes % (Manual) 5 Eosinophils % 0.2 D Basophils % 0.7 Nucleated RBC % 0 Platelet Estimate Adequate Platelet Comment No clumping noted PT with INR 16.40 H INR 1.39 H PTT (Actin FS) 31.8 Sodium 138 Potassium 5.0 Chloride 99 Carbon Dioxide 35 H Anion Gap 5 L BUN 26 H Creatinine 1.2 Creat Clearance w eGFR 61.15 POC Glucometer Random Glucose 142 H Calcium 9.3 Total Bilirubin 0.6 AST 17 ALT 67 H Alkaline Phosphatase 142 H Creatine Kinase 27 Troponin I 0.25 H B-Natriuretic Peptide 4025.6 H Total Protein 7.0 Albumin 3.6 Prealbumin Influenza A (Rapid) Influenza B (Rapid) 12/17/18 12/17/18 12/18/18 22:22 22:22 04:45 WBC RBC Hgb Hct MCV MCH MCHC RDW Plt Count MPV Absolute Neuts (auto) Neutrophils % Neutrophils % (Manual) Band Neutrophils % Lymphocytes % Lymphocytes % (Manual) Monocytes % Monocytes % (Manual) Eosinophils % Basophils % Nucleated RBC % Platelet Estimate Platelet Comment PT with INR INR PTT (Actin FS) Sodium Potassium Chloride Carbon Dioxide Anion Gap BUN Creatinine Creat Clearance w eGFR POC Glucometer Random Glucose Calcium Total Bilirubin AST ALT Alkaline Phosphatase Creatine Kinase Troponin I 0.16 H B-Natriuretic Peptide Total Protein Albumin Prealbumin 14.4 L Influenza A (Rapid) Negative Influenza B (Rapid) Negative 12/18/18 06:48 WBC RBC Hgb Hct MCV MCH MCHC RDW Plt Count MPV Absolute Neuts (auto) Neutrophils % Neutrophils % (Manual) Band Neutrophils % Lymphocytes % Lymphocytes % (Manual) Monocytes % Monocytes % (Manual) Eosinophils % Basophils % Nucleated RBC % Platelet Estimate Platelet Comment PT with INR INR PTT (Actin FS) Sodium Potassium Chloride Carbon Dioxide Anion Gap BUN Creatinine Creat Clearance w eGFR POC Glucometer 210 Random Glucose Calcium Total Bilirubin AST ALT Alkaline Phosphatase Creatine Kinase Troponin I B-Natriuretic Peptide Total Protein Albumin Prealbumin Influenza A (Rapid) Influenza B (Rapid) Active Medications Generic Name Dose Route Start Last Admin Trade Name Freq PRN Reason Stop Dose Admin Albuterol Sulfate 1 amp 12/17/18 22:35 Ventolin 0.083% Nebulizer Soln - NEB Q6H PRN SHORT OF BREATH/WHEEZING Albuterol/Ipratropium 1 amp 12/18/18 08:00 Duoneb - NEB RQID DOMINIC Furosemide 40 mg 12/18/18 10:00 Lasix - PO DAILY DOMINIC Levofloxacin 750 mg in 150 mls @ 100 mls/hr 12/17/18 22:30 12/17/18 22:38 Levaquin 750 Mg Premixed Ivpb - IVPB 100 mls/hr DAILY DOMINIC Administration Protocol Diltiazem HCl 125 mg/ Sodium 125 mls @ 5 mls/hr 12/18/18 06:00 12/18/18 06:56 Chloride IVPB 5 mg/hr TITR DOMINIC 5 mls/hr Administration Protocol 5 MG/HR Insulin Aspart 1 vial 12/18/18 07:00 12/18/18 06:57 Novolog Vial Sliding Scale - SQ 4 units ACHS DOMINIC Administration Protocol Methadone HCl 65 mg 12/18/18 10:00 Dolophine - PO DAILY [facility] Methylprednisolone Sodium Succinate 60 mg 12/18/18 03:00 12/18/18 02:17 Solu-Medrol - IVPUSH 60 mg Q6H-IV DOMINIC Administration Metoprolol Tartrate 75 mg 12/18/18 10:00 Lopressor - PO BID [facility] Pantoprazole Sodium 40 mg 12/18/18 10:00 Protonix - PO DAILY [facility] Rivaroxaban 20 mg 12/18/18 18:00 Xarelto - PO DAILY@1800 [facility] Ambulatory Orders Methadone [Dolophine -] 65 mg PO DAILY 09/25/17 Rivaroxaban [Xarelto -] 20 mg PO DAILY 09/25/17 metFORMIN HCL [Glucophage -] 500 mg PO BID 09/25/17 Albuterol Sulfate Inhaler - [Ventolin HFA Inhaler -] 1 - 2 inh PO QID PRN #1 inhaler 01/26/18 Furosemide [Lasix -] 40 mg PO DAILY #30 tablet 11/14/18 Budesonide/Formeterol Fumarate [SYMBICORT 160/4.5mcg -] 2 puff IH BID #7 inhaler 12/10/18 Metoprolol Tartrate [Lopressor -] 75 mg PO BID #180 tablet 12/10/18 Pantoprazole Sodium [Protonix -] 40 mg PO DAILY #30 tablet.ec 12/10/18 Prednisone See Taper PO DAILY #50 tablet 12/10/18 Current Medications Albuterol Sulfate (Ventolin 0.083% Nebulizer Soln -) 1 amp NEB Q6H PRN PRN Reason: SHORT OF BREATH/WHEEZING Albuterol/Ipratropium (Duoneb -) 1 amp NEB RQID DOMINIC Diltiazem HCl (Cardizem Cd -) 180 mg PO DAILY [facility] Last Admin: 12/18/18 10:21 Dose: 180 mg Furosemide (Lasix -) 40 mg PO DAILY [facility] Last Admin: 12/18/18 09:49 Dose: 40 mg Insulin Aspart (Novolog Vial Sliding Scale -) 1 vial SQ [facility]; Protocol Last Admin: 12/18/18 06:57 Dose: 4 units Methadone HCl (Dolophine -) 65 mg PO DAILY [facility] Methylprednisolone Sodium Succinate (Solu-Medrol -) 60 mg IVPUSH Q6H-IV [facility] Last Admin: 12/18/18 08:42 Dose: 60 mg Pantoprazole Sodium (Protonix -) 40 mg PO DAILY [facility] Last Admin: 12/18/18 09:49 Dose: 40 mg Rivaroxaban (Xarelto -) 20 mg PO DAILY@1800 [facility] Sotalol HCl (Betapace -) 80 mg PO BID [facility] 11/15 Echo:L ventricular normal size, left ventricular systolic function-nl, EF 60-65%, RV systolic function is nl, RA size nl, PA systolic pressure at least 40mmHg RA pressure is assumed 3mmHg. Mild aortic sclerosis. 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 #Atrial Fibrillation w/RVR No known precipitants-bcx, RSV swab pending, pt reports compliance on meds on Xarelto- Siobhanc-4 Was placed on Cardizem drip overnight for rates in 130-150 despite 75mg lopressor PO, 15mg Lopressor IV, 20mg Cardizem IV, 60mg Cardizem PO. This am HR was 70s in sinus rhthym Seen by cards- Dr Mcclelland- Diltiazem drip stopped, PO cardizem started at 180mg daily, metoprolol stopped, sotalol started at 80mg bid Levaquin stopped for prolonged QTC #CHF Pt with preserved EF Does not appear to be in exacerbation BNP -4025.6 down from 5562 and 7376 on prior admissions On home lasix 40mg daily -continue #Pulmonary HTN Likely in setting of chronic lung dx (hypoxic respiratory failure due to COPD) Continue supplemental oxygen Cont Solumed 60Q6H- encourage quick taper Received azithromycin as outpatient QTC-440 Levaquin stopped by cards #CKD Cr-1.1 today from 1.2 Continue to monitor Avoid nephrotoxic drugs Cont home lasix 40mg PO daily #COPD Group D on on 2L O2 Cont quick steroid taper Cont oxygen supplementation #DM 2 Cont ISS ACHS BGM ACHS Hold home metformin #Chronic methadone use Pt reports he use methadone now for chronic pain mx off opiates 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 - New Patient This patient is new to me today: Yes Date on this admission: 12/18/18 - Critical Care Critical Care patient: No - Discharge Referral Referred to [facility] Med P.C.: No
--- NOTE | 2018-12-18 07:43 | PN ---
Progress Note (short form) - Note Progress Note: Chief Complaint: Events noted notes reviewed, recurrent dyspnea, cough, denies any chest pain or dyspnea, noted to in atrial fibrillation with RVR History of Present Illness: Seen and examined on telemetry. Full consult dictated - Current Medication List Current Medications Albuterol Sulfate (Ventolin 0.083% Nebulizer Soln -) 1 amp NEB Q6H PRN PRN Reason: SHORT OF BREATH/WHEEZING Albuterol/Ipratropium (Duoneb -) 1 amp NEB RQID DOMINIC Furosemide (Lasix -) 40 mg PO DAILY DOMINIC Levofloxacin (Levaquin 750 Mg Premixed Ivpb -) 750 mg in 150 mls @ 100 mls/hr IVPB DAILY DOMINIC; Protocol Last Admin: 12/17/18 22:38 Dose: 100 mls/hr Diltiazem HCl 125 mg/ Sodium (Chloride) 125 mls @ 5 mls/hr IVPB TITR DOMINIC; Protocol Last Admin: 12/18/18 06:56 Dose: 5 mg/hr, 5 mls/hr Insulin Aspart (Novolog Vial Sliding Scale -) 1 vial SQ ACHS [facility]; Protocol Last Admin: 12/18/18 06:57 Dose: 4 units Methadone HCl (Dolophine -) 65 mg PO DAILY DOMINIC Methylprednisolone Sodium Succinate (Solu-Medrol -) 60 mg IVPUSH Q6H-IV DOMINIC Last Admin: 12/18/18 02:17 Dose: 60 mg Metoprolol Tartrate (Lopressor -) 75 mg PO BID DOMINIC Pantoprazole Sodium (Protonix -) 40 mg PO DAILY DOMINIC Rivaroxaban (Xarelto -) 20 mg PO DAILY@1800 DOMINIC - Review of Systems Cardiovascular: As noted above Respiratory: denies: denies: Cough or Sputum Production Gastrointestinal: denies: Nausea, Vomiting, Diarrhea, Constipation or Abdominal Discomfort Musculoskeletal: No Symptoms Reported Endocrine: No Symptoms Reported - Objective Vital Signs: Last Vital Signs Temp Pulse Resp BP Pulse Ox 98.5 F 97 H 22 H 125/67 97 12/18/18 02:00 12/18/18 07:00 12/18/18 07:00 12/18/18 07:00 12/17/18 23:52 Intake & Output 12/15/18 12/16/18 12/17/18 12/18/18 23:59 23:59 23:59 23:59 Weight 198 lb Neck: Supple Negative JVD No Bruit Cardiovascular: S1 S2 Irregularly Irregular Respiratory: Diminished Breath Sounds Bilaterally Gastrointestinal: Soft Benign Normal Bowel Sounds Ext: Trace Edema Bilaterally Labs: Troponin, BNP 12/17/18 12/18/18 20:40 04:45 Troponin I 0.25 H 0.16 H B-Natriuretic Peptide 4025.6 H CBC, BMP 12/17/18 20:40 12/17/18 20:40 Hepatic Panel Total Bilirubin 0.6 mg/dL (0.2-1) 12/17/18 20:40 AST 17 U/L (15-37) 12/17/18 20:40 ALT 67 U/L (13-61) H 12/17/18 20:40 Alkaline Phosphatase 142 U/L (45-117) H 12/17/18 20:40 Albumin 3.6 g/dl (3.4-5.0) 12/17/18 20:40 INR, PTT INR 1.39 (0.83-1.09) H 12/17/18 20:40 Assessment/Plan ASSESSMENT: 1. Paroxysmal atrial fibrillation/atrial flutter recurrent arrhythmia with RVR [id number] score of 4, on DOAC's/Xarelto, converted to sinus rhythm 2. CAD/CAC- coronary artery calcification/CT scan chest dated 12/23/16 abnormal MPI study demand ischemic injury angina pectoris 3. Acute on chronic class I-II NYHA classification LV diastolic failure, resolving 4. HTN 5. DM 6. Hypercholesterolemia 7. 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 COPD with exacerbation 9. Prior history of substance abuse/Opioid dependence currently on Methadone treatment PLAN: 1. Continue Xarelto 2. Continue Cardizem but initiate PO, hemodynamics permitting 3. Add Betapace with caution and close monitoring of QTc 4. Continue diuretics 5. Avoid Levofloxacin/QTc effect 6. Steroids and bronchodilators as per the primary team Araceli Brownlee M.D.
[2018-12-18 07:47] LABS: BASO % 0.6 % (0-2.0); HEMATOCRIT 43.3 % (35.4-49); HEMOGLOBIN 13.6 GM/dL (11.7-16.9); MCH 29.9 pg (25.7-33.7); MCHC 31.4 g/dl (32.0-35.9); MEAN CELL VOLUME 95.1 fl (80-96); MEAN PLT VOLUME 9.4 fl (7.5-11.1); MONO % 1.4 % (3.8-10.2); PLATELET COUNT 186 K/MM3 (134-434); RBC 4.55 M/mm3 (4.00-5.60); RDW 16.5 % (11.9-15.9); WHITE BLOOD COUNT 23.7 K/mm3 (4.0-10.0)
[2018-12-18 08:14] LABS: ALK PHOS 120 U/L (45-117); ANION GAP 8 MMOL/L (8-16); BILIRUBIN,TOTAL 0.6 mg/dL (0.2-1); BLOOD UREA NITROGEN 25 mg/dL (7-18); CHLORIDE 98 mmol/L (98-107); CO2 32 mmol/L (21-32); CREATININE 1.1 mg/dL (0.55-1.3); GLUCOSE,RANDOM 194 mg/dL (74-106); MAGNESIUM 1.9 mg/dL (1.8-2.4); PHOSPHOROUS 3.6 mg/dL (2.5-4.9); POTASSIUM 5.1 mmol/L (3.5-5.1); SGOT/AST 15 U/L (15-37); SGPT/ALT 55 U/L (13-61); SODIUM 139 mmol/L (136-145); TOT PROT 6.4 g/dl (6.4-8.2)
[2018-12-18] MEDS: FUROSEMIDE 40 MG TABLET (FP) PO SCH (09:49)
[2018-12-18] MEDS: PANTOPRAZOLE 40 MG TABLET (FP) PO SCH (09:49)
[2018-12-18] MEDS ORDERED: METOPROLOL TARTRATE 25 MG TABLET (FP) PO SCH ×2 (10:00→10:30)
[2018-12-18] MEDS ORDERED: BUDESONIDE/FORMETEROL FUMARATE 160/4.5 mcg INHALER IH SCH (10:00)
[2018-12-18] MEDS ORDERED: METHADONE HCL 40 MG DISPERSABLE TABLET PO SCH (10:00)
[2018-12-18] MEDS ORDERED: SOTALOL HCL 80 MG TABLET (FP) PO SCH (10:00)
[2018-12-18 10:23] LABS: ANISOCYTOSIS 1+; MACROCYTOSIS 1+; OVALOCYTE 1+; PLATELET ESTIMATE NORMAL
--- NOTE | 2018-12-18 11:24 | CONS ---
DATE OF CONSULTATION: 12/18/2018 CONSULTATION REQUESTED BY: Hospitalist service CHIEF COMPLAINT: Evaluation of dyspnea and recurrent cardiac arrhythmia, paroxysmal atrial fibrillation. HISTORY: A 63-year-old male with known history of paroxysmal atrial fibrillation on chronic anticoagulation therapy with Xarelto, coronary artery disease, coronary artery calcification on CT scan of the chest December 23, 2016, abnormal myocardial perfusion imaging study, angina pectoris, diastolic left ventricular dysfunction with chronic class I to II [place] Heart Association classification left ventricular failure, hypertensive cardiovascular disease, diabetes mellitus, hypercholesterolemia, chronic obstructive pulmonary disease who present to [facility] after recent discharge with increasing dyspnea and cough, and upon evaluation patient was noted to have evidence of acute on chronic congestive heart failure, COPD exacerbation and in addition evidence of atrial fibrillation with rapid ventricular response. Patient was given multiple doses of beta-mercy therapy and subsequently initiated on IV Cardizem therapy for purpose of rate control. Patient currently reports dyspnea with mild to moderate physical exertion, but denies any orthopnea or paroxysmal nocturnal dyspnea. Patient reports intermittent bilateral lower extremity edema that worsens in the latter part of the day. Patient denies any chest discomfort. Patient reports intermittent palpitation. Patient denies any dizziness, lightheadedness or syncope. Patient reports fatigue and tiredness. PAST MEDICAL HISTORY: Coronary artery disease, coronary artery calcification, abnormal myocardial perfusion imaging study, angina pectoris, diastolic left ventricular dysfunction with chronic class I to II [place] Heart Association classification left ventricular failure, paroxysmal atrial fibrillation, CHADS-VASc score of 4 on chronic anticoagulation therapy, hypertensive cardiovascular disease, diabetes mellitus, hypercholesterolemia, chronic obstructive pulmonary disease, peripheral vascular disease, post peripheral bypass and prior history of substance abuse currently on methadone therapy. SOCIAL HISTORY: Prior history of tobacco abuse and in addition substance abuse including opioids. Prior history of smoking. PAST SURGICAL HISTORY: Peripheral bypass. FAMILY HISTORY: Positive coronary artery disease. ALLERGIES: PENICILLIN. MEDICAL THERAPY CURRENTLY: Includes Ventolin nebulizer; DuoNeb nebulizer; Lasix 40 mg once a day orally; Levaquin 750 mg once daily; IV Cardizem; insulin coverage; methadone 65 mg once daily; Solu-Medrol 60 mg IV every 6 hours; Lopressor 75 mg twice a day; pantoprazole 40 mg once a day; Xarelto 20 mg once daily. REVIEW OF SYSTEMS: Head and Neck: Denies headache, photophobia, blurring of vision. Respiratory: Reports cough nonproductive of sputum. Cardiovascular: As noted above. Gastrointestinal: Denies nausea, vomiting, diarrhea, abdominal discomfort. Musculoskeletal: No symptoms reported. Genitourinary: No symptoms reported. PHYSICAL EXAMINATION: Vital Signs: Blood pressure is 125/67 mmHg. Pulse rate is 97 beats per minute, irregular. Head and Neck: Pupils equal, react to light and accommodation. Extraocular muscles are intact. Anicteric sclerae. Negative JVD. No bruit appreciated. Chest: Diminished breath sounds at the bases bilaterally. Cardiovascular: S1, S2, irregularly irregular with grade 1 to 2 over 6 systolic ejection murmur. No clicks or gallops. Abdomen: Soft, benign. Normoactive bowel sounds. Extremities: Trace edema. Decreased distal pulses. No calf tenderness. Electrocardiogram reveals atrial fibrillation with nonspecific ST and T-wave abnormality. Troponin I initially 0.25, repeat 0.16. B-type natriuretic peptide was 4025.6. CBC revealed white cell count 28.2, hemoglobin 14.3, platelet count 243. Basic metabolic profile reveals sodium 138, potassium 5.0, BUN 26, creatinine 1.2, glucose 142, ALT 67, INR 1.39. ASSESSMENT: 1. Paroxysmal atrial fibrillation/atrial flutter, recurrent arrhythmia with periods of rapid ventricular response, CHADS-VASc score of 4 on anticoagulation therapy with Xarelto, converted to sinus rhythm. 2. Coronary artery disease, coronary artery calcification on CT scan of the chest dated December 23, 2016, abnormal myocardial perfusion imaging study with evidence of demand ischemic injury, angina pectoris. 3. Acute on chronic class I to II [place] Heart Association classification left ventricular diastolic failure, resolving. 4. Hypertension. 5. Diabetes mellitus. 6. Hypercholesterolemia. 7. 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 8. Chronic obstructive pulmonary disease. 9. Prior history of substance abuse, opioid dependence currently on methadone therapy. RECOMMENDATION: 1. Continuation of Xarelto therapy indefinitely unless it is absolutely contraindicated considering the above-noted CHADS-VASc score of 4. 2. Continuation of Cardizem therapy, but initiation of p.o. therapy hemodynamics permitting. 3. Addition of Betapace therapy with caution and close monitoring of QTc interval. 4. Continuation of diuretic therapy. 5. Avoidance of Levaquin therapy in view of potential QTc prolongation. 6. Steroids and bronchodilators as per the primary team. Thank you for the kind referral. KUSH HERNDON M.D. MARIA DE JESUS/[id number]
--- NOTE | 2018-12-18 11:31 | CON.PULM ---
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 States that he has been feeling warm at home but has not measured a fever. His cough is productive for clear sputum and he has some muscular back pain. His O2 requirement has not increased but he has less exercise tolerance. 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: No: Alzheimer's Cardio/Vascular: Yes: AFIB, CHF, HTN, Hyperlipdemia Pulmonary: Yes: COPD, O2 Dependent Gastrointestinal: No: Ascites Hepatobiliary: No: Cirrhosis Renal/: No: Renal Failure Heme/Onc: No: Anemia Psych: Yes: Addictions (opiates now on methadone), Depression Endocrine: Yes: Diabetes Mellitus - Past Surgical History Past Surgical History: Yes: Bypass (Abdominal aorta) - Alcohol/Substance Use Hx Alcohol Use: No History of Substance Use: reports: Heroin - Smoking History Smoking history: Former smoker Have you smoked in the past 12 months: No Aproximately how many cigarettes per day: 10 If you are a former smoker, when did you quit?: 3 yrs - Social History Usual Living Arrangement: Alone ADL: Independent History of Recent Travel: No Home Medications - Allergies Allergies/Adverse Reactions: Allergies Allergy/AdvReac Type Severity Reaction Status Date / Time Penicillins Allergy "rash" Verified 12/17/18 20:18 - Home Medications Home Medications: Ambulatory Orders Methadone [Dolophine -] 65 mg PO DAILY 09/25/17 Rivaroxaban [Xarelto -] 20 mg PO DAILY 09/25/17 metFORMIN HCL [Glucophage -] 500 mg PO BID 09/25/17 Albuterol Sulfate Inhaler - [Ventolin HFA Inhaler -] 1 - 2 inh PO QID PRN #1 inhaler 01/26/18 Furosemide [Lasix -] 40 mg PO DAILY #30 tablet 11/14/18 Budesonide/Formeterol Fumarate [SYMBICORT 160/4.5mcg -] 2 puff IH BID #7 inhaler 12/10/18 Metoprolol Tartrate [Lopressor -] 75 mg PO BID #180 tablet 12/10/18 Pantoprazole Sodium [Protonix -] 40 mg PO DAILY #30 tablet.ec 12/10/18 Prednisone See Taper PO DAILY #50 tablet 12/10/18 Family Disease History - Family Disease History Family Disease History: Heart Disease: Father ([place]), [place]: Sister (Cervical [place]) Review of Systems - Review of Systems Constitutional: denies: Fever Eyes: denies: Blurred Vision HENT: denies: Ear Discharge Neck: denies: Lumps Cardiovascular: denies: Edema Respiratory: reports: Cough, Exercise Intolerance, SOB, SOB on Exertion, Wheezing. denies: Hemoptysis Gastrointestinal: denies: Abdominal Pain Genitourinary: denies: Burning Physical Exam Vital Sings: Vital Signs Temperature 99.2 F 12/18/18 08:00 Pulse Rate 54 L 12/18/18 10:28 Respiratory Rate 22 H 12/18/18 10:28 Blood Pressure 115/82 12/18/18 10:28 O2 Sat by Pulse Oximetry (%) 95 12/18/18 11:00 Constitutional: Yes: Calm Eyes: Yes: EOM Intact HENT: Yes: Normocephalic Neck: Yes: Trachea Midline Cardiovascular: Yes: Pulse Irregular, S1, S2 Respiratory: Yes: Diminished Gastrointestinal: Yes: Abdomen, Obese Edema: No Neurological: Yes: Alert Psychiatric: Yes: Alert Labs: CBC, BMP 12/18/18 07:30 12/18/18 07:30 REST REVIEWED Imaging - Results Chest X-ray: Report Reviewed, Image Reviewed Problem List - Problems (1) Atrial fibrillation with rapid ventricular response Code(s): I48.91 - UNSPECIFIED ATRIAL FIBRILLATION (2) Acute on chronic diastolic CHF (congestive heart failure) Code(s): I50.33 - ACUTE ON CHRONIC DIASTOLIC (CONGESTIVE) HEART FAILURE (3) COPD exacerbation Code(s): J44.1 - CHRONIC OBSTRUCTIVE PULMONARY DISEASE W (ACUTE) EXACERBATION (4) Shortness of breath Code(s): R06.02 - SHORTNESS OF BREATH (5) CHF (congestive heart failure) Code(s): I50.9 - HEART FAILURE, UNSPECIFIED (6) Diabetes type 2, controlled Code(s): E11.9 - TYPE 2 DIABETES MELLITUS WITHOUT COMPLICATIONS Qualifiers: Diabetes mellitus superintendent container terminal insulin use: without superintendent container terminal use (7) Methadone dependence Code(s): F11.20 - OPIOID DEPENDENCE, UNCOMPLICATED (8) PAD (peripheral artery disease) Code(s): I73.9 - PERIPHERAL VASCULAR DISEASE, UNSPECIFIED (9) Paroxysmal atrial fibrillation Code(s): I48.0 - PAROXYSMAL ATRIAL FIBRILLATION Assessment/Plan DYSPNEA LIKELY RELATED TO RAPID AF ON ADMISSION (? COMPLIANCE TO MEDS OUTPATIENT) AN ACUTE MILD BRONCHITIS SUPERIMPOSED UPON HIS COPD MAY ALSO BE A CONTRIBUTING FACTOR RATE CONTROL/ANTICOAGULATION/TAPER STEROIDS/CONTINUE NEBS Q6/O2 SUPPLEMENTATION CONTINUE CARDIAC MONITORING WILL FOLLOW Major ALARCON MD
[2018-12-18] MEDS: SOTALOL HCL 80 MG TABLET (FP) PO SCH ×2 (11:34→23:24)
--- NOTE | 2018-12-18 12:45 | PN ---
Teaching Attending Note Name of Resident: Smiley Garza ATTENDING PHYSICIAN STATEMENT I saw and evaluated the patient. I reviewed the resident's note and discussed the case with the resident. I agree with the resident's findings and plan as documented. SUBJECTIVE:currently asymptomatic. states he had some SOB when standing earlier today but no symptoms since. he is currently on steroid taper and was currently taking 20mg which he just dropped 2 days prior to arrival however states he did not think there is any correlation with the recent decrease in medications as this has been going on/off for several months. denies CP, SOB, fever, chills, cough, N/V/C/D or palpitations. states he never has palpitations OBJECTIVE: Last Vital Signs Temp Pulse Resp BP Pulse Ox 99.2 F 54 L 22 H 115/82 95 12/18/18 08:00 12/18/18 10:28 12/18/18 10:28 12/18/18 10:28 12/18/18 11:00 General NAD CV S1 S2 irregular Lungs diffuse expiratory wheezing, poor lung entry ABdomen soft NT/ND Extremiteis no pedal edema ASSESSMENT AND PLAN: 63yo M with PMH systolic CHF, pulmonary HTN, afib on xarelto, COPD on 2L NC, DM and chronic methadone presented to the ER with sob and productive cough of green sputum and found to be in afib with RVR 1. Afib with RVR- HR was 160 and started on cardizem ggt and currently more controlled. like is likely precipitating his breathing. not a candidate for ablation based on comorbid conditions. plan to initiate Sotalol while hospitalized. will need daily EKG to monitor Qtc. hold beta and calcium blockers. cardiac monitoring during this time. cardio on board. cont xarelto. avoid any QT proloning medications. QTC today 427 2. acute on chronic hypoxic respiratory failure- liekly potentiated by uncontrolled afib than a primary lung issue. CXR negative for infiltrate. agree with stopping abx at thsi time. started on solumedrol 60mg Q6H, quick taper of steroids. nebs. supplemental oxygen to SpO2>88%. pulmonary consulted 3. Tropinemia- liekyl demand due to tachycardia and hypoxia. flat trend 0.25- 0.16. no indication for ischemia eval at this time. cardio on board 4. systolic CHF-clinically euvolemic. cont home medications 5. DM- hold oral agents. iss and bgm 6. Chronic methadone- confirm dose. will need to monitor Qtc closely 7. DVT ppx- xarelto
[2018-12-18 12:52] LABS: COCAINE, UR NEGATIVE ng/ml (CUTOFF=300); PHENCYCLIDINE,URINE NEGATIVE ng/ml (CUTOFF=25); URINE AMPHETAMINES NEGATIVE ng/ml (CUTOFF=500); URINE BARBITURATES NEGATIVE ng/ml (CUTOFF=200); URINE BENZODIAZEPINES NEGATIVE ng/ml (CUTOFF=200)
--- NOTE | 2018-12-18 12:55 | EKG ---
Test Reason : Blood Pressure : / mmHG Vent. Rate : 059 BPM Atrial Rate : 056 BPM P-R Int : 000 ms QRS Dur : 076 ms QT Int : 432 ms P-R-T Axes : 000 060 226 degrees QTc Int : 427 ms ATRIAL FIBRILLATION WITH SLOW VENTRICULAR RESPONSE ABNORMAL ECG Confirmed by MD KALEB, VICENTE ([id number]) on 12/18/2018 12:54:54 PM Referred By: Fabiano JARRETT Confirmed By:VICENTE MANUEL MD
[2018-12-18] MEDS ORDERED: DOCUSATE SODIUM 100 MG CAPSULE (FP) PO PRN (12:57)
--- NOTE | 2018-12-18 12:57 | EKG ---
Test Reason : Blood Pressure : / mmHG Vent. Rate : 128 BPM Atrial Rate : 119 BPM P-R Int : 000 ms QRS Dur : 068 ms QT Int : 302 ms P-R-T Axes : 000 066 -80 degrees QTc Int : 440 ms ATRIAL FIBRILLATION WITH RAPID VENTRICULAR RESPONSE ABNORMAL ECG Confirmed by MD KALEB, VICENTE ([id number]) on 12/18/2018 12:57:24 PM Referred By: Confirmed By:VICENTE MANUEL MD
[2018-12-18 13:08] LABS: METHADONE, UR POSITIVE ng/ml (CUTOFF=300); OPIATES, URI POSITIVE ng/ml (CUTOFF=300)
[2018-12-18] MEDS: POLYETHYLENE GLYCOL 3350 119 GM BTL PO SCH ×2 (13:19→23:31)
[2018-12-18] MEDS ORDERED: PT OWN MED DRAWER 7, Y5N ONE (15:26)
[2018-12-18] MEDS: RIVAROXABAN 20 MG TABLET PO SCH (17:23)
[2018-12-18] MEDS: ACETAMINOPHEN 325 MG TABLET (FP) PO PRN (23:42)
[2018-12-19] MEDS: methylPREDNISolone NA SUCC 40 MG/1 ML VIAL IVPUSH SCH ×3 (01:14→17:59)
[2018-12-19] MEDS: INSULIN SLIDING SCALE (NOVOLOG) 1 VIAL SQ SCH ×4 (06:05→21:44)
[2018-12-19 06:35] LABS: BASO % 0.2 % (0-2.0); HEMATOCRIT 38.9 % (35.4-49); HEMOGLOBIN 12.4 GM/dL (11.7-16.9); LYMPH % 2.7 % (8-40); MCH 30.1 pg (25.7-33.7); MCHC 31.9 g/dl (32.0-35.9); MEAN CELL VOLUME 94.3 fl (80-96); MEAN PLT VOLUME 9.9 fl (7.5-11.1); MONO % 2.4 % (3.8-10.2); NEUT % 94.7 % (42.8-82.8); PLATELET COUNT 175 K/MM3 (134-434); RBC 4.13 M/mm3 (4.00-5.60); RDW 16.5 % (11.9-15.9); WHITE BLOOD COUNT 26.6 K/mm3 (4.0-10.0)
[2018-12-19 07:08] LABS: ALBUMIN 3.1 g/dl (3.4-5.0); ALK PHOS 149 U/L (45-117); ANION GAP 5 MMOL/L (8-16); BILIRUBIN,TOTAL 0.4 mg/dL (0.2-1); BLOOD UREA NITROGEN 41 mg/dL (7-18); CALCIUM 9.1 mg/dL (8.5-10.1); CHLORIDE 100 mmol/L (98-107); CO2 32 mmol/L (21-32); CREATININE 1.3 mg/dL (0.55-1.3); GLUCOSE,RANDOM 171 mg/dL (74-106); MAGNESIUM 2.1 mg/dL (1.8-2.4); PHOSPHOROUS 4.2 mg/dL (2.5-4.9); POTASSIUM 4.8 mmol/L (3.5-5.1); SGOT/AST 40 U/L (15-37); SGPT/ALT 119 U/L (13-61); SODIUM 138 mmol/L (136-145); TOT PROT 6.3 g/dl (6.4-8.2)
[2018-12-19] MEDS: ALBUTEROL SO4 2.5/IPRATROPIUM 0.5 INH SOL 3 ML VIAL.NEB. NEB SCH ×4 (07:15→20:35)
--- NOTE | 2018-12-19 07:19 | PN ---
Progress Note (short form) - Note Progress Note: Chief Complaint: Events noted, notes reviewed, dyspnea persists but improved, denies any chest pain, sinus bradycardia noted History of Present Illness: Seen and examined on telemetry. Events noted, notes reviewed, dyspnea persists but improved, denies any chest pain, sinus bradycardia noted - Current Medication List Current Medications Acetaminophen (Tylenol -) 325 mg PO Q6H PRN PRN Reason: PAIN LEVEL 4 - 6 Last Admin: 12/18/18 23:42 Dose: 325 mg Albuterol Sulfate (Ventolin 0.083% Nebulizer Soln -) 1 amp NEB RQID [facility] Albuterol/Ipratropium (Duoneb -) 1 amp NEB RQID [facility] Diltiazem HCl (Cardizem Cd -) 180 mg PO DAILY [facility] Docusate Sodium (Colace -) 100 mg PO Q12H PRN PRN Reason: CONSTIPATION Furosemide (Lasix -) 40 mg PO DAILY [facility] Last Admin: 12/18/18 09:49 Dose: 40 mg Insulin Aspart (Novolog Vial Sliding Scale -) 1 vial SQ [facility]; Protocol Last Admin: 12/19/18 06:05 Dose: Not Given Methadone HCl (Dolophine -) 65 mg PO DAILY [facility] Methylprednisolone Sodium Succinate (Solu-Medrol -) 40 mg IVPUSH Q8H-IV [facility] Last Admin: 12/19/18 01:14 Dose: 40 mg Pantoprazole Sodium (Protonix -) 40 mg PO DAILY [facility] Last Admin: 12/18/18 09:49 Dose: 40 mg Polyethylene Glycol (Miralax (For Daily Use) -) 17 gm PO BID [facility] Last Admin: 12/18/18 23:31 Dose: 17 gm Rivaroxaban (Xarelto -) 20 mg PO DAILY@1800 [facility] Last Admin: 12/18/18 17:23 Dose: 20 mg Sotalol HCl (Betapace -) 80 mg PO BID [facility] Last Admin: 12/18/18 23:24 Dose: Not Given - Review of Systems Cardiovascular: As noted above Respiratory: denies: denies: Cough or Sputum Production Gastrointestinal: denies: Nausea, Vomiting, Diarrhea, Constipation or Abdominal Discomfort Musculoskeletal: No Symptoms Reported Endocrine: No Symptoms Reported - Objective Vital Signs: Last Vital Signs Temp Pulse Resp BP Pulse Ox 98.2 F 50 L 20 111/72 99 12/19/18 01:41 12/19/18 06:00 12/19/18 06:00 12/19/18 06:00 12/18/18 19:00 Intake & Output 12/16/18 12/17/18 12/18/18 12/19/18 23:59 23:59 23:59 23:59 Intake Total 1170 Output Total 300 Balance 1170 -300 Weight 198 lb 198 lb Neck: Supple Negative JVD No Bruit Cardiovascular: S1 S2 Regular Rate Rhythm Respiratory: Diminished Breath Sounds Bilaterally Gastrointestinal: Soft Benign Normal Bowel Sounds Ext: Trace Edema Bilaterally Labs: CBC, BMP 12/19/18 05:30 12/19/18 05:30 Hepatic Panel Total Bilirubin 0.4 mg/dL (0.2-1) 12/19/18 05:30 AST 40 U/L (15-37) H 12/19/18 05:30 ALT 119 U/L (13-61) H 12/19/18 05:30 Alkaline Phosphatase 149 U/L (45-117) H 12/19/18 05:30 Albumin 3.1 g/dl (3.4-5.0) L 12/19/18 05:30 INR, PTT INR 1.39 (0.83-1.09) H 12/17/18 20:40 Assessment/Plan ASSESSMENT: 1. Paroxysmal atrial fibrillation/atrial flutter recurrent arrhythmia with RVR [id number] score of 4, on DOAC's/Xarelto, converted to sinus rhythm, sinus bradycardia 2. CAD/CAC- coronary artery calcification/CT scan chest dated 12/23/16 abnormal MPI study demand ischemic injury angina pectoris 3. Acute on chronic class I-II NYHA classification LV diastolic failure, resolving 4. HTN 5. DM 6. Hypercholesterolemia 7. 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 COPD with exacerbation 9. Prior history of substance abuse/Opioid dependence currently on Methadone treatment PLAN: 1. Continue Xarelto 2. Continue Cardizem CD but decrease dosage, hemodynamics permitting 3. Ideally should be on ACEI or ARBS unless contraindicated, hemodynamics permitting and renal function at baseline 4. Continue Betapace with caution and close monitoring of QTc interval 5. Continue diuretics 6. Steroids and bronchodilators as per the primary team Araceli Brownlee M.D.
[2018-12-19] MEDS: ALBUTEROL SO4 0.083% IH SOL 2.5 MG/3 ML VIAL.NEB. NEB SCH ×4 (08:26→20:35)
[2018-12-19] MEDS: ACETAMINOPHEN 325 MG TABLET (FP) PO PRN (08:44)
[2018-12-19] MEDS ORDERED: METHADONE HCL 40 MG DISPERSABLE TABLET ONE (09:33)
[2018-12-19] MEDS ORDERED: METHADONE HCL 5 MG TABLET ONE (09:33)
[2018-12-19] MEDS ORDERED: METHADONE HCL 10 MG TABLET ONE (09:33)
[2018-12-19] MEDS: METHADONE 40 MG, METHADONE 20 MG, METHADONE 5 MG PO SCH (09:38)
[2018-12-19] MEDS: PANTOPRAZOLE 40 MG TABLET (FP) PO SCH (09:39)
[2018-12-19] MEDS: SOTALOL HCL 80 MG TABLET (FP) PO SCH ×2 (09:39→21:37)
[2018-12-19] MEDS: FUROSEMIDE 40 MG TABLET (FP) PO SCH (09:39)
[2018-12-19 09:47] LABS: ANISOCYTOSIS 0; MACROCYTOSIS 1+; OVALOCYTE 1+; PLATELET ESTIMATE NORMAL
[2018-12-19] MEDS ORDERED: METHADONE 40 MG, METHADONE 20 MG, METHADONE 5 MG PO SCH (10:00)
[2018-12-19] MEDS: POLYETHYLENE GLYCOL 3350 119 GM BTL PO SCH ×2 (10:32→21:37)
--- NOTE | 2018-12-19 10:56 | PN ---
Progress Note, Physician History of Present Illness: PULMONARY ALERT,FEELING BETTER,STILL VERY DYSPNEIC WITH EXERTION - Current Medication List Current Medications: Active Medications Acetaminophen (Tylenol -) 325 mg PO Q6H PRN PRN Reason: PAIN LEVEL 4 - 6 Last Admin: 12/19/18 08:44 Dose: 325 mg Albuterol Sulfate (Ventolin 0.083% Nebulizer Soln -) 1 amp NEB RQID [facility] Last Admin: 12/19/18 08:26 Dose: Not Given Albuterol/Ipratropium (Duoneb -) 1 amp NEB RQID [facility] Last Admin: 12/19/18 07:15 Dose: 1 amp Diltiazem HCl (Cardizem Cd -) 120 mg PO DAILY [facility] Last Admin: 12/19/18 09:39 Dose: 120 mg Docusate Sodium (Colace -) 100 mg PO Q12H PRN PRN Reason: CONSTIPATION Furosemide (Lasix -) 40 mg PO DAILY [facility] Last Admin: 12/19/18 09:39 Dose: 40 mg Insulin Aspart (Novolog Vial Sliding Scale -) 1 vial SQ [facility]; Protocol Last Admin: 12/19/18 06:05 Dose: Not Given Methadone HCl 40 mg/ Methadone (HCl 20 mg/ Methadone HCl 5 mg) 65 mg PO DAILY@ 0600 [facility] Last Admin: 12/19/18 09:38 Dose: 65 mg Methylprednisolone Sodium Succinate (Solu-Medrol -) 40 mg IVPUSH Q8H-IV [facility] Last Admin: 12/19/18 09:39 Dose: 40 mg Pantoprazole Sodium (Protonix -) 40 mg PO DAILY [facility] Last Admin: 12/19/18 09:39 Dose: 40 mg Polyethylene Glycol (Miralax (For Daily Use) -) 17 gm PO BID [facility] Last Admin: 12/19/18 10:32 Dose: 17 gm Rivaroxaban (Xarelto -) 20 mg PO DAILY@1800 [facility] Last Admin: 12/18/18 17:23 Dose: 20 mg Sotalol HCl (Betapace -) 80 mg PO BID [facility] Last Admin: 12/19/18 09:39 Dose: 80 mg - Objective Vital Signs: Vital Signs Temperature 98.2 F 12/19/18 01:41 Pulse Rate 50 L 12/19/18 06:00 Respiratory Rate 20 12/19/18 06:00 Blood Pressure 111/72 12/19/18 06:00 O2 Sat by Pulse Oximetry (%) 99 12/18/18 19:00 Constitutional: Yes: Well Nourished, Calm Eyes: Yes: WNL HENT: Yes: WNL Neck: Yes: WNL Cardiovascular: Yes: Pulse Irregular, S1, S2 Respiratory: Yes: Diminished, Rales (FEW SCATTERED WHEEZES) Gastrointestinal: Yes: Normal Bowel Sounds, Soft Extremities: Yes: WNL Edema: No Labs: CBC, BMP 12/19/18 05:30 12/19/18 05:30 INR, PTT INR 1.39 (0.83-1.09) H 12/17/18 20:40 Assessment/Plan Problem List - Problems (1) Atrial fibrillation with rapid ventricular response Code(s): I48.91 - UNSPECIFIED ATRIAL FIBRILLATION (2) Acute on chronic diastolic CHF (congestive heart failure) Code(s): I50.33 - ACUTE ON CHRONIC DIASTOLIC (CONGESTIVE) HEART FAILURE (3) COPD exacerbation Code(s): J44.1 - CHRONIC OBSTRUCTIVE PULMONARY DISEASE W (ACUTE) EXACERBATION (4) Shortness of breath Code(s): R06.02 - SHORTNESS OF BREATH (5) CHF (congestive heart failure) Code(s): I50.9 - HEART FAILURE, UNSPECIFIED (6) Diabetes type 2, controlled Code(s): E11.9 - TYPE 2 DIABETES MELLITUS WITHOUT COMPLICATIONS Qualifiers: Diabetes mellitus financial sales consultant insulin use: without senior care use (7) Methadone dependence Code(s): F11.20 - OPIOID DEPENDENCE, UNCOMPLICATED (8) PAD (peripheral artery disease) Code(s): I73.9 - PERIPHERAL VASCULAR DISEASE, UNSPECIFIED (9) Paroxysmal atrial fibrillation Code(s): I48.0 - PAROXYSMAL ATRIAL FIBRILLATION Assessment/Plan DYSPNEA ACUTE MILD BRONCHITIS AFIB PVD CHF NIDDM PLAN RATE CONTROL ANTICOAGULATION TAPER STEROIDS CONTINUE NEBS O2 SUPPLEMENTATION DR [facility]
--- NOTE | 2018-12-19 12:27 | PN ---
Physical Exam: SUBJECTIVE: Patient seen and examined at bedside. Patient endorses improvement of his shortness of breath at rest, however does admit some dyspnea upon walking to the bathroom from his bed. He denies subjective fever, chills, chest pain, palpitations, abdominal pain, nausea, vomiting. OBJECTIVE: Vital Signs Period Temp Pulse Resp BP Sys/Chatterjee Pulse Ox Last 24 Hr 98.1 F-98.5 F 50-62 20-20 100-152/7-92 98-99 GENERAL: The patient is awake, alert, and fully oriented, in no acute distress. HEAD: Normocephalic, atraumatic. EYES: PERRL, extraocular movements intact, sclera anicteric, conjunctiva clear. ENT: Oropharynx clear without exudates, moist mucous membranes. NECK: Trachea midline, full range of motion, supple without lymphadenopathy LUNGS: Good inspiratory effort, and poor air entry bilaterally. No wheezes, or crackles auscultated. No accessory lung use. HEART: Regular rate and rhythm, S1, S2 without murmur, rub or gallop. ABDOMEN: Soft, nontender, nondistended, normoactive bowel sounds, no guarding, no rebound, no hepatosplenomegaly, no masses. EXTREMITIES: 2+ radial, dorsalis pedis pulses bilaterally, warm, well-perfused. 1+ edema, which chronic venous stasis changes bilaterally. NEUROLOGICAL: Cranial nerves II through XII grossly intact. Normal speech PSYCH: Mood and affect appropriate upon my encounter. Laboratory Results - last 24 hr 12/18/18 12/18/18 12/18/18 10:30 16:15 21:48 WBC RBC Hgb Hct MCV MCH MCHC RDW Plt Count MPV Absolute Neuts (auto) Neutrophils % Neutrophils % (Manual) Band Neutrophils % Lymphocytes % Lymphocytes % (Manual) Monocytes % Monocytes % (Manual) Eosinophils % Eosinophils % (Manual) Basophils % Basophils % (Manual) Myelocytes % (Man) Promyelocytes % (Man) Blast Cells % (Manual) Nucleated RBC % Metamyelocytes Hypochromia Platelet Estimate Polychromasia Poikilocytosis Anisocytosis Microcytosis Macrocytosis Spherocytes Ovalocytes Sodium Potassium Chloride Carbon Dioxide Anion Gap BUN Creatinine Creat Clearance w eGFR POC Glucometer 307 154 Random Glucose Calcium Phosphorus Magnesium Total Bilirubin AST ALT Alkaline Phosphatase Total Protein Albumin Opiates Screen Positive A* Methadone Screen Positive A* Barbiturate Screen Negative Phencyclidine Screen Negative Ur Amphetamines Screen Negative MDMA (Ecstasy) Screen Negative Benzodiazepines Screen Negative Cocaine Screen Negative U Marijuana (THC) Screen Negative 12/19/18 12/19/18 12/19/18 05:30 05:30 06:03 WBC 26.6 H RBC 4.13 Hgb 12.4 Hct 38.9 MCV 94.3 MCH 30.1 MCHC 31.9 L RDW 16.5 H Plt Count 175 MPV 9.9 Absolute Neuts (auto) 25.2 H Neutrophils % 94.7 H Neutrophils % (Manual) 99.0 H Band Neutrophils % 0.0 Lymphocytes % 2.7 L Lymphocytes % (Manual) 0.0 L Monocytes % 2.4 L Monocytes % (Manual) 1 L Eosinophils % 0.0 Eosinophils % (Manual) 0.0 Basophils % 0.2 Basophils % (Manual) 0.0 Myelocytes % (Man) 0 Promyelocytes % (Man) 0 Blast Cells % (Manual) 0 Nucleated RBC % 0 Metamyelocytes 0 Hypochromia 0 Platelet Estimate Normal Polychromasia 0 Poikilocytosis 1+ Anisocytosis 0 Microcytosis 0 Macrocytosis 1+ Spherocytes 1+ Ovalocytes 1+ Sodium 138 Potassium 4.8 Chloride 100 Carbon Dioxide 32 Anion Gap 5 L BUN 41 H Creatinine 1.3 Creat Clearance w eGFR 55.75 POC Glucometer 155 Random Glucose 171 H Calcium 9.1 Phosphorus 4.2 Magnesium 2.1 Total Bilirubin 0.4 AST 40 H ALT 119 H Alkaline Phosphatase 149 H Total Protein 6.3 L Albumin 3.1 L Opiates Screen Methadone Screen Barbiturate Screen Phencyclidine Screen Ur Amphetamines Screen MDMA (Ecstasy) Screen Benzodiazepines Screen Cocaine Screen U Marijuana (THC) Screen 12/19/18 11:21 WBC RBC Hgb Hct MCV MCH MCHC RDW Plt Count MPV Absolute Neuts (auto) Neutrophils % Neutrophils % (Manual) Band Neutrophils % Lymphocytes % Lymphocytes % (Manual) Monocytes % Monocytes % (Manual) Eosinophils % Eosinophils % (Manual) Basophils % Basophils % (Manual) Myelocytes % (Man) Promyelocytes % (Man) Blast Cells % (Manual) Nucleated RBC % Metamyelocytes Hypochromia Platelet Estimate Polychromasia Poikilocytosis Anisocytosis Microcytosis Macrocytosis Spherocytes Ovalocytes Sodium Potassium Chloride Carbon Dioxide Anion Gap BUN Creatinine Creat Clearance w eGFR POC Glucometer 249 Random Glucose Calcium Phosphorus Magnesium Total Bilirubin AST ALT Alkaline Phosphatase Total Protein Albumin Opiates Screen Methadone Screen Barbiturate Screen Phencyclidine Screen Ur Amphetamines Screen MDMA (Ecstasy) Screen Benzodiazepines Screen Cocaine Screen U Marijuana (THC) Screen Active Medications Generic Name Dose Route Start Last Admin Trade Name Freq PRN Reason Stop Dose Admin Acetaminophen 325 mg 12/18/18 23:18 12/19/18 08:44 Tylenol - PO 325 mg Q6H PRN Administration PAIN LEVEL 4 - 6 Albuterol Sulfate 1 amp 12/18/18 12:00 12/19/18 11:28 Ventolin 0.083% Nebulizer Soln - NEB Not Given RQID DOMINIC Albuterol/Ipratropium 1 amp 12/18/18 08:00 12/19/18 11:28 Duoneb - NEB 1 amp RQID DOMINIC Administration Diltiazem HCl 120 mg 12/19/18 08:28 12/19/18 09:39 Cardizem Cd - PO 120 mg DAILY DOMINIC Administration Docusate Sodium 100 mg 12/18/18 12:57 Colace - PO Q12H PRN CONSTIPATION Furosemide 40 mg 12/18/18 10:00 12/19/18 09:39 Lasix - PO 40 mg DAILY DOMINIC Administration Insulin Aspart 1 vial 12/18/18 07:00 12/19/18 11:30 Novolog Vial Sliding Scale - SQ 4 units ACHS DOMINIC Administration Protocol Methadone HCl 40 mg/ Methadone 65 mg 12/19/18 09:30 12/19/18 09:38 HCl 20 mg/ Methadone HCl 5 mg PO 65 mg DAILY@0600 DOMINIC Administration Methylprednisolone Sodium Succinate 40 mg 12/18/18 18:00 12/19/18 09:39 Solu-Medrol - IVPUSH 40 mg Q8H-IV DOMINIC Administration Pantoprazole Sodium 40 mg 12/18/18 10:00 12/19/18 09:39 Protonix - PO 40 mg DAILY DOMINIC Administration Polyethylene Glycol 17 gm 12/18/18 13:00 12/19/18 10:32 Miralax (For Daily Use) - PO 17 gm BID DOMINIC Administration Rivaroxaban 20 mg 12/18/18 18:00 12/18/18 17:23 Xarelto - PO 20 mg DAILY@1800 DOMINIC Administration Sotalol HCl 80 mg 12/18/18 10:41 12/19/18 09:39 Betapace - PO 80 mg BID DOMINIC Administration ASSESSMENT/PLAN: Patient is a 63 year old male with history of HFpEF, pulmonary hypertension, Afib on Xarelto, COPD (on home oxygen 2L), non insulin dependent diabetes mellitus, opiod dependence (on methadone) presented with complaint of shortness of breath. COPD exacerbation -Chest radiograph shows no acute infiltrates -Duonebs QID standing -Methylprednisone 40mg IV Q8 Hours -Maintain oxygen saturation greater than 90% -Pulmonology recommendations appreciated. CHF -ECHO (10/2018) LV normal size, thickness, function. EF 60-65% LA mildly dilated. Trace MR. Pulmonary artery pressure at least 40mmHg. -Lasix 40mg IV daily -Daily weights -Strict intake output -Cardiology consult (Dr. Brownlee) appreciated. Afib -EKG on admission showed Afib with RVR. -Currently rate controlled. -Cardizem 120mg PO dialy -Sotalol 80mg PO BID -Xarelto 20mg PO daily -Telemetry monitoring History of opiod dependence -Methadone 70mg PO daily GERD -Protonix 40mg PO daily Diabetes mellitus -HbA1c 6.5% -Insulin sliding scale ACHS -Fingerstick blood glucose monitoring ACHS Hypertension -Patient is currently on Cardizem, and Sotalol. -Follow vital signs closely. FEN -No IV fluids indicated. -Follow CMP -Diabetic diet Prophylaxis -Patient is on Xarelto 20mg PO daily for Afib -Protonix 40mg PO daily Disposition -Continue care in Telemetry floor Visit type - Emergency Visit Emergency Visit: Yes ED Registration Date: 12/18/18 Care time: The patient presented to the Emergency Department on the above date and was hospitalized for further evaluation of their emergent condition. - New Patient This patient is new to me today: Yes Date on this admission: 12/19/18 - Critical Care Critical Care patient: No - Discharge Referral Referred to [facility] Med P.C.: No
--- NOTE | 2018-12-19 14:18 | EKG ---
Test Reason : Blood Pressure : / mmHG Vent. Rate : 062 BPM Atrial Rate : 062 BPM P-R Int : 108 ms QRS Dur : 094 ms QT Int : 452 ms P-R-T Axes : 039 068 202 degrees QTc Int : 458 ms SINUS RHYTHM WITH SHORT NV WITH OCCASIONAL PREMATURE VENTRICULAR COMPLEXES NONSPECIFIC ST AND T WAVE ABNORMALITY ABNORMAL ECG WHEN COMPARED WITH ECG OF 18-DEC-2018 10:17, SINUS RHYTHM HAS REPLACED ATRIAL FIBRILLATION Confirmed by DELONTE RAIN, LAMONT ([id number]) on 12/19/2018 2:18:06 PM Referred By: YANICK UCRRIE DR Confirmed By:LAMONT MARTEL MD
--- NOTE | 2018-12-19 16:52 | PN ---
Teaching Attending Note Name of Resident: Montrell Zapien ATTENDING PHYSICIAN STATEMENT I saw and evaluated the patient. I reviewed the resident's note and discussed the case with the resident. I agree with the resident's findings and plan as documented. SUBJECTIVE: Patient feels SOB with minimal exertion. OBJECTIVE: Vital Signs Period Temp Pulse Resp BP Sys/Chatterjee Pulse Ox Last 24 Hr 98.1 F-98.5 F 50-79 20-20 106-152/7-92 98-99 HEART: S1S2, RRR LUNGS: Decreased BS with diffuse expiratory wheezes ABDOMEN: Obese, soft, non-tender, non-distended, normal BS EXTREMITIES: Trace edema Laboratory Results - last 24 hr 12/18/18 12/19/18 12/19/18 21:48 05:30 05:30 WBC 26.6 H RBC 4.13 Hgb 12.4 Hct 38.9 MCV 94.3 MCH 30.1 MCHC 31.9 L RDW 16.5 H Plt Count 175 MPV 9.9 Absolute Neuts (auto) 25.2 H Neutrophils % 94.7 H Neutrophils % (Manual) 99.0 H Band Neutrophils % 0.0 Lymphocytes % 2.7 L Lymphocytes % (Manual) 0.0 L Monocytes % 2.4 L Monocytes % (Manual) 1 L Eosinophils % 0.0 Eosinophils % (Manual) 0.0 Basophils % 0.2 Basophils % (Manual) 0.0 Myelocytes % (Man) 0 Promyelocytes % (Man) 0 Blast Cells % (Manual) 0 Nucleated RBC % 0 Metamyelocytes 0 Hypochromia 0 Platelet Estimate Normal Polychromasia 0 Poikilocytosis 1+ Anisocytosis 0 Microcytosis 0 Macrocytosis 1+ Spherocytes 1+ Ovalocytes 1+ Sodium 138 Potassium 4.8 Chloride 100 Carbon Dioxide 32 Anion Gap 5 L BUN 41 H Creatinine 1.3 Creat Clearance w eGFR 55.75 POC Glucometer 154 Random Glucose 171 H Calcium 9.1 Phosphorus 4.2 Magnesium 2.1 Total Bilirubin 0.4 AST 40 H ALT 119 H Alkaline Phosphatase 149 H Total Protein 6.3 L Albumin 3.1 L 12/19/18 12/19/18 12/19/18 06:03 11:21 16:19 WBC RBC Hgb Hct MCV MCH MCHC RDW Plt Count MPV Absolute Neuts (auto) Neutrophils % Neutrophils % (Manual) Band Neutrophils % Lymphocytes % Lymphocytes % (Manual) Monocytes % Monocytes % (Manual) Eosinophils % Eosinophils % (Manual) Basophils % Basophils % (Manual) Myelocytes % (Man) Promyelocytes % (Man) Blast Cells % (Manual) Nucleated RBC % Metamyelocytes Hypochromia Platelet Estimate Polychromasia Poikilocytosis Anisocytosis Microcytosis Macrocytosis Spherocytes Ovalocytes Sodium Potassium Chloride Carbon Dioxide Anion Gap BUN Creatinine Creat Clearance w eGFR POC Glucometer 155 249 236 Random Glucose Calcium Phosphorus Magnesium Total Bilirubin AST ALT Alkaline Phosphatase Total Protein Albumin Current Medications Generic Name Dose Route Start Last Admin Trade Name Freq PRN Reason Stop Dose Admin Acetaminophen 325 mg 12/18/18 23:18 12/19/18 08:44 Tylenol - PO 325 mg Q6H PRN Administration PAIN LEVEL 4 - 6 Albuterol Sulfate 1 amp 12/18/18 12:00 12/19/18 16:21 Ventolin 0.083% Nebulizer Soln - NEB Not Given RQID DOMINIC Albuterol/Ipratropium 1 amp 12/18/18 08:00 12/19/18 16:21 Duoneb - NEB 1 amp RQID DOMINIC Administration Diltiazem HCl 120 mg 12/19/18 08:28 12/19/18 09:39 Cardizem Cd - PO 120 mg DAILY DOMINIC Administration Docusate Sodium 100 mg 12/18/18 12:57 Colace - PO Q12H PRN CONSTIPATION Furosemide 40 mg 12/18/18 10:00 12/19/18 09:39 Lasix - PO 40 mg DAILY DOMINIC Administration Insulin Aspart 1 vial 12/18/18 07:00 12/19/18 11:30 Novolog Vial Sliding Scale - SQ 4 units ACHS DOMINIC Administration Protocol Methadone HCl 40 mg/ Methadone 65 mg 12/19/18 09:30 12/19/18 09:38 HCl 20 mg/ Methadone HCl 5 mg PO 65 mg DAILY@0600 DOMINIC Administration Methylprednisolone Sodium Succinate 40 mg 12/18/18 18:00 12/19/18 09:39 Solu-Medrol - IVPUSH 40 mg Q8H-IV DOMINIC Administration Pantoprazole Sodium 40 mg 12/18/18 10:00 12/19/18 09:39 Protonix - PO 40 mg DAILY DOMINIC Administration Polyethylene Glycol 17 gm 12/18/18 13:00 12/19/18 10:32 Miralax (For Daily Use) - PO 17 gm BID DOMINIC Administration Rivaroxaban 20 mg 12/18/18 18:00 12/18/18 17:23 Xarelto - PO 20 mg DAILY@1800 DOMINIC Administration Sotalol HCl 80 mg 12/18/18 10:41 12/19/18 09:39 Betapace - PO 80 mg BID DOMINIC Administration ASSESSMENT AND PLAN: This is a 63 year old man with a history of chronic diastolic heart failure, HTN , atrial fib, chronic hypoxic respiratory failure, COPD, type 2 DM, PAD, opioid dependence who presented to the ED with a productive cough and SOB. 1. Paroxysmal atrial fib with RVR - Currently in sinus rhythm - Continue sotalol, Xarelto - Cardizem CD dose decreased secondary to bradycardia 2. Acute on chronic hypoxic respiratory failure secondary to acute exacerbation of COPD - Continue SoluMedrol, DuoNeb 3. Demand ischemia 4. Chronic diastolic heart failure - Stable - Continue Lasix 5. Type 2 DM - Metformin held - Continue Novolog sliding scale 6. Opioid dependence - Continue methadone maintenance
[2018-12-19] MEDS: RIVAROXABAN 20 MG TABLET PO SCH (17:59)
[2018-12-20] MEDS: methylPREDNISolone NA SUCC 40 MG/1 ML VIAL IVPUSH SCH ×3 (02:39→17:22)
--- NOTE | 2018-12-20 06:37 | PN ---
Progress Note (short form) - Note Progress Note: Chief Complaint: Events noted, notes reviewed, dyspnea persists specially with ambulation, denies any chest pain, sinus bradycardia noted History of Present Illness: Seen and examined on telemetry. Events noted, notes reviewed, dyspnea persists specially with ambulation, denies any chest pain, sinus bradycardia noted - Current Medication List Current Medications Acetaminophen (Tylenol -) 325 mg PO Q6H PRN PRN Reason: PAIN LEVEL 4 - 6 Last Admin: 12/19/18 08:44 Dose: 325 mg Albuterol Sulfate (Ventolin 0.083% Nebulizer Soln -) 1 amp NEB RQID [facility] Last Admin: 12/19/18 20:35 Dose: Not Given Albuterol/Ipratropium (Duoneb -) 1 amp NEB RQID [facility] Last Admin: 12/19/18 20:35 Dose: 1 amp Diltiazem HCl (Cardizem Cd -) 120 mg PO DAILY [facility] Last Admin: 12/19/18 09:39 Dose: 120 mg Docusate Sodium (Colace -) 100 mg PO Q12H PRN PRN Reason: CONSTIPATION Furosemide (Lasix -) 40 mg PO DAILY [facility] Last Admin: 12/19/18 09:39 Dose: 40 mg Insulin Aspart (Novolog Vial Sliding Scale -) 1 vial SQ ACHS [facility]; Protocol Last Admin: 12/19/18 21:44 Dose: 4 units Methadone HCl 40 mg/ Methadone (HCl 20 mg/ Methadone HCl 5 mg) 65 mg PO DAILY@ 0600 [facility] Last Admin: 12/19/18 09:38 Dose: 65 mg Methylprednisolone Sodium Succinate (Solu-Medrol -) 40 mg IVPUSH Q8H-IV [facility] Last Admin: 12/20/18 02:39 Dose: 40 mg Pantoprazole Sodium (Protonix -) 40 mg PO DAILY [facility] Last Admin: 12/19/18 09:39 Dose: 40 mg Polyethylene Glycol (Miralax (For Daily Use) -) 17 gm PO BID [facility] Last Admin: 12/19/18 21:37 Dose: 17 gm Rivaroxaban (Xarelto -) 20 mg PO DAILY@1800 [facility] Last Admin: 12/19/18 17:59 Dose: 20 mg Sotalol HCl (Betapace -) 80 mg PO BID [facility] Last Admin: 12/19/18 21:37 Dose: 80 mg - Review of Systems Cardiovascular: As noted above Respiratory: denies: denies: Cough or Sputum Production Gastrointestinal: denies: Nausea, Vomiting, Diarrhea, Constipation or Abdominal Discomfort Musculoskeletal: No Symptoms Reported Endocrine: No Symptoms Reported - Objective Vital Signs: Last Vital Signs Temp Pulse Resp BP Pulse Ox 97.8 F 83 20 126/59 L 97 12/20/18 01:38 12/20/18 05:00 12/20/18 05:00 12/20/18 05:00 12/19/18 19:00 Intake & Output 12/17/18 12/18/18 12/19/18 12/20/18 23:59 23:59 23:59 23:59 Intake Total 1170 700 Output Total 300 1000 Balance 1170 400 -1000 Weight 198 lb 198 lb 200 lb Neck: Supple Negative JVD No Bruit Cardiovascular: S1 S2 Regular Rate Rhythm Respiratory: Diminished Breath Sounds Bilaterally No Rhonchi Gastrointestinal: Soft Benign Normal Bowel Sounds Ext: Trace Edema Bilaterally Labs: CBC, BMP 12/20/18 07:08 12/20/18 07:08 Hepatic Panel Total Bilirubin 0.4 mg/dL (0.2-1) 12/19/18 05:30 AST 40 U/L (15-37) H 12/19/18 05:30 ALT 119 U/L (13-61) H 12/19/18 05:30 Alkaline Phosphatase 149 U/L (45-117) H 12/19/18 05:30 Albumin 3.1 g/dl (3.4-5.0) L 12/19/18 05:30 INR, PTT INR 1.39 (0.83-1.09) H 12/17/18 20:40 Assessment/Plan ASSESSMENT: 1. Paroxysmal atrial fibrillation/atrial flutter recurrent arrhythmia with RVR [id number] score of 4, on DOAC's/Xarelto, converted to sinus rhythm, sinus bradycardia 2. CAD/CAC- coronary artery calcification/CT scan chest dated 12/23/16 abnormal MPI study demand ischemic injury angina pectoris 3. Acute on chronic class I-II NYHA classification LV diastolic failure, resolved 4. HTN 5. DM 6. Hypercholesterolemia 7. 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 COPD with exacerbation, resolved 9. Prior history of substance abuse/Opioid dependence currently on Methadone treatment PLAN: 1. Continue Xarelto 2. Continue Cardizem CD but decrease dosage, hemodynamics permitting 3. Ideally should be on ACEI or ARBS unless contraindicated, hemodynamics permitting and renal function at baseline 4. Continue Betapace with caution and close monitoring of QTc interval, today's and yesterday's EKG's noted 5. Continue diuretics 6. Steroids and bronchodilators as per the primary team Araceli Brownlee M.D.
[2018-12-20] MEDS ORDERED: METHADONE HCL 40 MG DISPERSABLE TABLET ONE (06:48)
[2018-12-20] MEDS ORDERED: METHADONE HCL 5 MG TABLET ONE (06:49)
[2018-12-20] MEDS ORDERED: METHADONE HCL 10 MG TABLET ONE (06:49)
[2018-12-20] MEDS: INSULIN SLIDING SCALE (NOVOLOG) 1 VIAL SQ SCH ×4 (06:53→21:49)
[2018-12-20] MEDS: METHADONE 40 MG, METHADONE 20 MG, METHADONE 5 MG PO SCH (06:56)
[2018-12-20] MEDS: ALBUTEROL SO4 0.083% IH SOL 2.5 MG/3 ML VIAL.NEB. NEB SCH ×4 (07:40→22:32)
[2018-12-20] MEDS: ALBUTEROL SO4 2.5/IPRATROPIUM 0.5 INH SOL 3 ML VIAL.NEB. NEB SCH ×4 (07:40→21:35)
[2018-12-20 08:04] LABS: HEMATOCRIT 39.9 % (35.4-49); HEMOGLOBIN 12.6 GM/dL (11.7-16.9); MCH 30.1 pg (25.7-33.7); MCHC 31.6 g/dl (32.0-35.9); MEAN PLT VOLUME 10.3 fl (7.5-11.1); PLATELET COUNT 184 K/MM3 (134-434); RDW 16.4 % (11.9-15.9); WHITE BLOOD COUNT 28.3 K/mm3 (4.0-10.0)
[2018-12-20 08:23] LABS: ANION GAP 5 MMOL/L (8-16); BLOOD UREA NITROGEN 45 mg/dL (7-18); CALCIUM 9.3 mg/dL (8.5-10.1); CHLORIDE 99 mmol/L (98-107); CO2 35 mmol/L (21-32); CREATININE 1.2 mg/dL (0.55-1.3); GLUCOSE,RANDOM 178 mg/dL (74-106); POTASSIUM 5.2 mmol/L (3.5-5.1); SODIUM 139 mmol/L (136-145)
[2018-12-20 09:52] LABS: ALBUMIN 3.4 g/dl (3.4-5.0); ALK PHOS 145 U/L (45-117); BILIRUBIN,DIRECT 0.2 mg/dL (0.0-0.2); BILIRUBIN,TOTAL 0.4 mg/dL (0.2-1); SGOT/AST 16 U/L (15-37); SGPT/ALT 92 U/L (13-61); TOT PROT 6.5 g/dl (6.4-8.2)
[2018-12-20] MEDS: PANTOPRAZOLE 40 MG TABLET (FP) PO SCH (10:24)
[2018-12-20] MEDS: SOTALOL HCL 80 MG TABLET (FP) PO SCH ×2 (10:24→21:49)
[2018-12-20] MEDS: FUROSEMIDE 40 MG TABLET (FP) PO SCH (10:24)
--- NOTE | 2018-12-20 10:26 | PN ---
Progress Note, Physician History of Present Illness: PULMONARY ALERT,OOB-CHAIR,COMFORTABLE AT REST + DYSPNEA WITH MIN EXERTION - Current Medication List Current Medications: Active Medications Acetaminophen (Tylenol -) 325 mg PO Q6H PRN PRN Reason: PAIN LEVEL 4 - 6 Last Admin: 12/19/18 08:44 Dose: 325 mg Albuterol Sulfate (Ventolin 0.083% Nebulizer Soln -) 1 amp NEB RQID [facility] Last Admin: 12/20/18 07:40 Dose: Not Given Albuterol/Ipratropium (Duoneb -) 1 amp NEB RQID [facility] Last Admin: 12/20/18 07:40 Dose: 1 amp Diltiazem HCl (Cardizem Cd -) 120 mg PO DAILY [facility] Last Admin: 12/19/18 09:39 Dose: 120 mg Docusate Sodium (Colace -) 100 mg PO Q12H PRN PRN Reason: CONSTIPATION Furosemide (Lasix -) 40 mg PO DAILY [facility] Last Admin: 12/19/18 09:39 Dose: 40 mg Insulin Aspart (Novolog Vial Sliding Scale -) 1 vial SQ [facility]; Protocol Last Admin: 12/20/18 06:53 Dose: Not Given Methadone HCl 40 mg/ Methadone (HCl 20 mg/ Methadone HCl 5 mg) 65 mg PO DAILY@ 0600 [facility] Last Admin: 12/20/18 06:56 Dose: 65 mg Methylprednisolone Sodium Succinate (Solu-Medrol -) 40 mg IVPUSH Q8H-IV [facility] Last Admin: 12/20/18 02:39 Dose: 40 mg Pantoprazole Sodium (Protonix -) 40 mg PO DAILY [facility] Last Admin: 12/19/18 09:39 Dose: 40 mg Polyethylene Glycol (Miralax (For Daily Use) -) 17 gm PO BID [facility] Last Admin: 12/19/18 21:37 Dose: 17 gm Rivaroxaban (Xarelto -) 20 mg PO DAILY@1800 [facility] Last Admin: 12/19/18 17:59 Dose: 20 mg Sotalol HCl (Betapace -) 80 mg PO BID [facility] Last Admin: 12/19/18 21:37 Dose: 80 mg - Objective Vital Signs: Vital Signs Temperature 97.8 F 12/20/18 01:38 Pulse Rate 83 12/20/18 05:00 Respiratory Rate 20 12/20/18 05:00 Blood Pressure 126/59 L 12/20/18 05:00 O2 Sat by Pulse Oximetry (%) 97 12/19/18 19:00 Constitutional: Yes: Well Nourished, Calm Eyes: Yes: WNL HENT: Yes: WNL Neck: Yes: WNL Cardiovascular: Yes: Regular Rate and Rhythm, S1, S2 Respiratory: Yes: Diminished Gastrointestinal: Yes: Normal Bowel Sounds, Soft Extremities: Yes: WNL Edema: Yes Labs: CBC, BMP 12/20/18 07:08 12/20/18 07:08 INR, PTT INR 1.39 (0.83-1.09) H 12/17/18 20:40 Assessment/Plan Problem List - Problems (1) Atrial fibrillation with rapid ventricular response Code(s): I48.91 - UNSPECIFIED ATRIAL FIBRILLATION (2) Acute on chronic diastolic CHF (congestive heart failure) Code(s): I50.33 - ACUTE ON CHRONIC DIASTOLIC (CONGESTIVE) HEART FAILURE (3) COPD exacerbation Code(s): J44.1 - CHRONIC OBSTRUCTIVE PULMONARY DISEASE W (ACUTE) EXACERBATION (4) Shortness of breath Code(s): R06.02 - SHORTNESS OF BREATH (5) CHF (congestive heart failure) Code(s): I50.9 - HEART FAILURE, UNSPECIFIED (6) Diabetes type 2, controlled Code(s): E11.9 - TYPE 2 DIABETES MELLITUS WITHOUT COMPLICATIONS Qualifiers: Diabetes mellitus fpc insulin use: without fpc use (7) Methadone dependence Code(s): F11.20 - OPIOID DEPENDENCE, UNCOMPLICATED (8) PAD (peripheral artery disease) Code(s): I73.9 - PERIPHERAL VASCULAR DISEASE, UNSPECIFIED (9) Paroxysmal atrial fibrillation Code(s): I48.0 - PAROXYSMAL ATRIAL FIBRILLATION Assessment/Plan DYSPNEA ACUTE MILD BRONCHITIS COPD AFIB PVD CHF NIDDM PLAN RATE CONTROL ANTICOAGULATION TAPER STEROIDS CONTINUE NEBS O2 SUPPLEMENTATION BEDSIDE SPIROMETRY DR [place]
--- NOTE | 2018-12-20 10:59 | PN ---
Teaching Attending Note Name of Resident: Montrell Zapien ATTENDING PHYSICIAN STATEMENT I saw and evaluated the patient. I reviewed the resident's note and discussed the case with the resident. I agree with the resident's findings and plan as documented. SUBJECTIVE: Dyspnea on exertion. OBJECTIVE: Afebrile, Hemodynamically Stable. Last Vital Signs Temp Pulse Resp BP Pulse Ox 97.8 F 83 20 126/59 L 97 12/20/18 01:38 12/20/18 05:00 12/20/18 05:00 12/20/18 05:00 12/19/18 19:00 HEENT - Atrauamtic, Normocephalic Heart - S1, S2, RRR Lungs - decreased air entry, occassional wheeze. Abdomen - Soft, non-tender. Bowel Sounds normal. Extremities - mild edema, no calf tenderness, excoriation hastings, venous stasis Laboratory Results - last 24 hr 12/19/18 12/19/18 12/19/18 11:21 16:19 21:42 WBC RBC Hgb Hct MCV MCH MCHC RDW Plt Count MPV Sodium Potassium Chloride Carbon Dioxide Anion Gap BUN Creatinine Creat Clearance w eGFR POC Glucometer 249 236 219 Random Glucose Calcium Total Bilirubin Direct Bilirubin AST ALT Alkaline Phosphatase Total Protein Albumin 12/20/18 12/20/18 12/20/18 05:50 07:08 07:08 WBC 28.3 H RBC 4.20 Hgb 12.6 Hct 39.9 MCV 95.0 MCH 30.1 MCHC 31.6 L RDW 16.4 H Plt Count 184 MPV 10.3 Sodium 139 Potassium 5.2 H Chloride 99 Carbon Dioxide 35 H Anion Gap 5 L BUN 45 H Creatinine 1.2 Creat Clearance w eGFR 61.15 POC Glucometer 161 Random Glucose 178 H Calcium 9.3 Total Bilirubin 0.4 Direct Bilirubin 0.2 AST 16 ALT 92 H Alkaline Phosphatase 145 H Total Protein 6.5 Albumin 3.4 Current Medications Generic Name Dose Route Start Last Admin Trade Name Freq PRN Reason Stop Dose Admin Acetaminophen 325 mg 12/18/18 23:18 12/19/18 08:44 Tylenol - PO 325 mg Q6H PRN Administration PAIN LEVEL 4 - 6 Albuterol Sulfate 1 amp 12/18/18 12:00 12/20/18 07:40 Ventolin 0.083% Nebulizer Soln - NEB Not Given RQID [facility] Albuterol/Ipratropium 1 amp 12/18/18 08:00 12/20/18 07:40 Duoneb - NEB 1 amp RQID [facility] Administration Diltiazem HCl 120 mg 12/19/18 08:28 12/20/18 10:24 Cardizem Cd - PO 120 mg DAILY [facility] Administration Docusate Sodium 100 mg 12/18/18 12:57 Colace - PO Q12H PRN CONSTIPATION Furosemide 40 mg 12/18/18 10:00 12/20/18 10:24 Lasix - PO 40 mg DAILY [facility] Administration Insulin Aspart 1 vial 12/18/18 07:00 12/20/18 06:53 Novolog Vial Sliding Scale - SQ Not Given ACHS [facility]IC Protocol Methadone HCl 40 mg/ Methadone 65 mg 12/19/18 09:30 12/20/18 06:56 HCl 20 mg/ Methadone HCl 5 mg PO 65 mg DAILY@0600 [facility] Administration Methylprednisolone Sodium Succinate 40 mg 12/18/18 18:00 12/20/18 10:24 Solu-Medrol - IVPUSH 40 mg Q8H-IV [facility]IC Administration Pantoprazole Sodium 40 mg 12/18/18 10:00 12/20/18 10:24 Protonix - PO 40 mg DAILY [facility] Administration Polyethylene Glycol 17 gm 12/18/18 13:00 12/19/18 21:37 Miralax (For Daily Use) - PO 17 gm BID [facility] Administration Rivaroxaban 20 mg 12/18/18 18:00 12/19/18 17:59 Xarelto - PO 20 mg DAILY@1800 [facility] Administration Sotalol HCl 80 mg 12/18/18 10:41 12/20/18 10:24 Betapace - PO 80 mg BID [facility]IC Administration ASSESSMENT AND PLAN: 63 year old Male with history of chronic diastolic heart failure, HTN, Paroxysmal Atrial Fibrillation on Xarelto, chronic hypoxic respiratory failure sec to COPD (on 2L O2), Pulmonary HTN, DM 2, PAD with distal aortic 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 1. Paroxysmal Atrial Fibrillation with RVR Reverted to SR. Metoprolol changed to Sotalol and Cardizem added. Continue Sotalol, Cardizem and Xarelto. Cardiology following. 2. Acute on Chronic Hypoxic Respiratory Failure secondary to Acute Exacerbation of COPD - resolving CXR - no infiltrate Continue SoluMedrol, DuoNeb Pulmonary following. Leukocytosis sec to Steroids. 3. Troponin egression secondary to likely demand ischemia - Cardiology following - for further testing as out-patient once acute illness resolves. 4. Chronic diastolic heart failure - Stable. Continue Lasix. 5. DM 2 - Continue Novolog sliding scale. Metformin held. 6. Opioid dependence/Hx substance abuse - Continue methadone maintenance 7. Pulmonary HTN - on Home O2. 8. GERD - continue PPI. 9. Hyperkalemia - will give Kayexalate. DVT Px - on Xarelto
[2018-12-20] MEDS ORDERED: SODIUM POLYSTYRENE SULFONATE 15 GM/60 ML BOTTLE PO ONE (11:18)
[2018-12-20] MEDS ORDERED: INSULIN (NOVOLOG) ASPART 100 UNITS/ML 10ML VIAL ONE (11:32)
[2018-12-20] MEDS: POLYETHYLENE GLYCOL 3350 119 GM BTL PO SCH ×2 (11:42→21:50)
[2018-12-20] MEDS ORDERED: PT OWN MED DRAWER 7, Y5N ONE ×2 (11:54→14:17)
--- NOTE | 2018-12-20 13:37 | PN ---
Physical Exam: SUBJECTIVE: Patient seen and examined at bedside. Continues to endorse dyspnea with mild exertion (walking from bed to bathroom). He denies subjective fever, chills, chest pain, palpitations, abdominal pain, nausea, vomiting. OBJECTIVE: Vital Signs Period Temp Pulse Resp BP Sys/Chatterjee Pulse Ox Last 24 Hr 97.7 F-98.7 F 58-94 20-20 112-134/59-74 97-97 GENERAL: The patient is awake, alert, and fully oriented, in no acute distress. HEAD: Normocephalic, atraumatic. EYES: PERRL, extraocular movements intact, sclera anicteric, conjunctiva clear. ENT: Oropharynx clear without exudates, moist mucous membranes. NECK: Trachea midline, full range of motion, supple without lymphadenopathy LUNGS: Good inspiratory effort, and poor air entry bilaterally. No wheezes, or crackles auscultated. No accessory lung use. HEART: Regular rate and rhythm, S1, S2 without murmur, rub or gallop. ABDOMEN: Soft, nontender, nondistended, normoactive bowel sounds, no guarding, no rebound, no hepatosplenomegaly, no masses. EXTREMITIES: 2+ radial, dorsalis pedis pulses bilaterally, warm, well-perfused. 1+ edema, which chronic venous stasis changes bilaterally. NEUROLOGICAL: Cranial nerves II through XII grossly intact. Normal speech PSYCH: Mood and affect appropriate upon my encounter. Laboratory Results - last 24 hr 12/19/18 12/19/18 12/20/18 16:19 21:42 05:50 WBC RBC Hgb Hct MCV MCH MCHC RDW Plt Count MPV Sodium Potassium Chloride Carbon Dioxide Anion Gap BUN Creatinine Creat Clearance w eGFR POC Glucometer 236 219 161 Random Glucose Calcium Total Bilirubin Direct Bilirubin AST ALT Alkaline Phosphatase Total Protein Albumin 12/20/18 12/20/18 12/20/18 07:08 07:08 11:30 WBC 28.3 H RBC 4.20 Hgb 12.6 Hct 39.9 MCV 95.0 MCH 30.1 MCHC 31.6 L RDW 16.4 H Plt Count 184 MPV 10.3 Sodium 139 Potassium 5.2 H Chloride 99 Carbon Dioxide 35 H Anion Gap 5 L BUN 45 H Creatinine 1.2 Creat Clearance w eGFR 61.15 POC Glucometer 306 Random Glucose 178 H Calcium 9.3 Total Bilirubin 0.4 Direct Bilirubin 0.2 AST 16 ALT 92 H Alkaline Phosphatase 145 H Total Protein 6.5 Albumin 3.4 Active Medications Generic Name Dose Route Start Last Admin Trade Name Janie PRN Reason Stop Dose Admin Acetaminophen 325 mg 12/18/18 23:18 12/19/18 08:44 Tylenol - PO 325 mg Q6H PRN Administration PAIN LEVEL 4 - 6 Albuterol Sulfate 1 amp 12/18/18 12:00 12/20/18 07:40 Ventolin 0.083% Nebulizer Soln - NEB Not Given RQID [facility] Albuterol/Ipratropium 1 amp 12/18/18 08:00 12/20/18 07:40 Duoneb - NEB 1 amp RQID [facility] Administration Diltiazem HCl 120 mg 12/19/18 08:28 12/20/18 10:24 Cardizem Cd - PO 120 mg DAILY [facility] Administration Docusate Sodium 100 mg 12/18/18 12:57 Colace - PO Q12H PRN CONSTIPATION Furosemide 40 mg 12/18/18 10:00 12/20/18 10:24 Lasix - PO 40 mg DAILY [facility] Administration Insulin Aspart 1 vial 12/18/18 07:00 12/20/18 11:41 Novolog Vial Sliding Scale - SQ 8 units ACHS DOMINIC Administration Protocol Methadone HCl 40 mg/ Methadone 65 mg 12/19/18 09:30 12/20/18 06:56 HCl 20 mg/ Methadone HCl 5 mg PO 65 mg DAILY@0600 [facility] Administration Methylprednisolone Sodium Succinate 40 mg 12/18/18 18:00 12/20/18 10:24 Solu-Medrol - IVPUSH 40 mg Q8H-IV [facility] Administration Pantoprazole Sodium 40 mg 12/18/18 10:00 12/20/18 10:24 Protonix - PO 40 mg DAILY [facility] Administration Polyethylene Glycol 17 gm 12/18/18 13:00 12/20/18 11:42 Miralax (For Daily Use) - PO Not Given BID [facility]INIC Rivaroxaban 20 mg 12/18/18 18:00 12/19/18 17:59 Xarelto - PO 20 mg DAILY@1800 [facility] Administration Sotalol HCl 80 mg 12/18/18 10:41 12/20/18 10:24 Betapace - PO 80 mg BID [facility]IC Administration ASSESSMENT/PLAN: Patient is a 63 year old male with history of HFpEF, pulmonary hypertension, Afib on Xarelto, COPD (on home oxygen 2L), non insulin dependent diabetes mellitus, opiod dependence (on methadone) presented with complaint of shortness of breath. Acute hypoxic respiratory failure secondary to COPD exacerbation -Chest radiograph shows no acute infiltrates -Duonebs QID standing -Methylprednisone 40mg IV Q8 Hours -Maintain oxygen saturation greater than 90% -Pulmonology recommendations appreciated. CHF, diastolic -ECHO (10/2018) LV normal size, thickness, function. EF 60-65% LA mildly dilated. Trace MR. Pulmonary artery pressure at least 40mmHg. -Lasix 40mg IV daily -Daily weights -Strict intake output -Cardiology consult (Dr. Brownlee) appreciated. Afib -EKG on admission showed Afib with RVR. -Currently rate controlled. -Cardizem 120mg PO dialy -Sotalol 80mg PO BID -Xarelto 20mg PO daily -Telemetry monitoring Troponinemia -Troponin peaked at 0.25. Likely secondary to demand ischemia. History of opiod dependence -Methadone 70mg PO daily GERD -Protonix 40mg PO daily Diabetes mellitus -HbA1c 6.5% -Insulin sliding scale ACHS -Fingerstick blood glucose monitoring ACHS Hypertension -Patient is currently on Cardizem, and Sotalol. -Follow vital signs closely. Hyperkalemia -Kayexalate 30mg PO one time dose -Follow BMP FEN -No IV fluids indicated. -Follow CMP -Diabetic diet Prophylaxis -Patient is on Xarelto 20mg PO daily for Afib -Protonix 40mg PO daily Disposition -Continue care in Telemetry floor Visit type - Emergency Visit Emergency Visit: Yes ED Registration Date: 12/18/18 Care time: The patient presented to the Emergency Department on the above date and was hospitalized for further evaluation of their emergent condition. - New Patient This patient is new to me today: No - Critical Care Critical Care patient: No - Discharge Referral Referred to [facility] No
--- NOTE | 2018-12-20 13:52 | EKG ---
Test Reason : Blood Pressure : / mmHG Vent. Rate : 057 BPM Atrial Rate : 057 BPM P-R Int : 114 ms QRS Dur : 088 ms QT Int : 482 ms P-R-T Axes : 062 071 161 degrees QTc Int : 469 ms SINUS BRADYCARDIA LATERAL INFARCT , AGE UNDETERMINED ABNORMAL ECG Confirmed by Demario Martins MD ([id number]) on 12/20/2018 1:51:55 PM Referred By: YANICK CURRIE DR Confirmed By:Demario Martins MD
[2018-12-20] MEDS ORDERED: MAG HYDROX/AL HYDROX/SIMETH 30 ML UNIT-DOSE CUP PO ONE (14:29)
[2018-12-20] MEDS: RIVAROXABAN 20 MG TABLET PO SCH (17:23)
[2018-12-21] MEDS ORDERED: MAG HYDROX/AL HYDROX/SIMETH 30 ML UNIT-DOSE CUP PO ONE (02:32)
[2018-12-21] MEDS: methylPREDNISolone NA SUCC 40 MG/1 ML VIAL IVPUSH SCH (03:00)
[2018-12-21 06:43] LABS: ALK PHOS 131 U/L (45-117); ANION GAP 6 MMOL/L (8-16); BILIRUBIN,TOTAL 0.4 mg/dL (0.2-1); BLOOD UREA NITROGEN 36 mg/dL (7-18); CALCIUM 8.8 mg/dL (8.5-10.1); CHLORIDE 99 mmol/L (98-107); CO2 34 mmol/L (21-32); CREATININE 1.1 mg/dL (0.55-1.3); GLUCOSE,RANDOM 210 mg/dL (74-106); POTASSIUM 4.2 mmol/L (3.5-5.1); SGOT/AST 18 U/L (15-37); SGPT/ALT 73 U/L (13-61); SODIUM 139 mmol/L (136-145); TOT PROT 5.6 g/dl (6.4-8.2)
[2018-12-21] MEDS ORDERED: METHADONE HCL 40 MG DISPERSABLE TABLET ONE (06:49)
[2018-12-21] MEDS ORDERED: METHADONE HCL 5 MG TABLET ONE (06:50)
[2018-12-21] MEDS: METHADONE 40 MG, METHADONE 20 MG, METHADONE 5 MG PO SCH (06:50)
[2018-12-21] MEDS ORDERED: METHADONE HCL 10 MG TABLET ONE (06:50)
[2018-12-21] MEDS: INSULIN SLIDING SCALE (NOVOLOG) 1 VIAL SQ SCH ×4 (06:53→21:31)
[2018-12-21 07:01] LABS: HEMATOCRIT 37.5 % (35.4-49); HEMOGLOBIN 11.9 GM/dL (11.7-16.9); MCH 29.7 pg (25.7-33.7); MCHC 31.8 g/dl (32.0-35.9); MEAN CELL VOLUME 93.4 fl (80-96); MEAN PLT VOLUME 10.3 fl (7.5-11.1); PLATELET COUNT 158 K/MM3 (134-434); RBC 4.01 M/mm3 (4.00-5.60); RDW 16.5 % (11.9-15.9); WHITE BLOOD COUNT 19.8 K/mm3 (4.0-10.0)
[2018-12-21] MEDS: ALBUTEROL SO4 2.5/IPRATROPIUM 0.5 INH SOL 3 ML VIAL.NEB. NEB SCH ×3 (07:40→21:41)
--- NOTE | 2018-12-21 08:35 | PN ---
Progress Note (short form) - Note Progress Note: Chief Complaint: Events noted, notes reviewed, recurrent atrial fibrillation with periods of RVR, complaining of chest discomfort and diaphoresis, dyspnea persists specially with ambulation History of Present Illness: Seen and examined on telemetry. Events noted, notes reviewed, recurrent atrial fibrillation with periods of RVR, complaining of chest discomfort and diaphoresis, dyspnea persists specially with ambulation - Current Medication List Current Medications Acetaminophen (Tylenol -) 325 mg PO Q6H PRN PRN Reason: PAIN LEVEL 4 - 6 Last Admin: 12/19/18 08:44 Dose: 325 mg Albuterol Sulfate (Ventolin 0.083% Nebulizer Soln -) 1 amp NEB RQID [facility] Last Admin: 12/20/18 22:32 Dose: Not Given Albuterol/Ipratropium (Duoneb -) 1 amp NEB RQID [facility] Last Admin: 12/20/18 21:35 Dose: 1 amp Diltiazem HCl (Cardizem Cd -) 120 mg PO DAILY [facility] Last Admin: 12/20/18 10:24 Dose: 120 mg Docusate Sodium (Colace -) 100 mg PO Q12H PRN PRN Reason: CONSTIPATION Furosemide (Lasix -) 40 mg PO DAILY [facility] Last Admin: 12/20/18 10:24 Dose: 40 mg Insulin Aspart (Novolog Vial Sliding Scale -) 1 vial SQ [facility]; Protocol Last Admin: 12/21/18 06:53 Dose: 4 units Methadone HCl 40 mg/ Methadone (HCl 20 mg/ Methadone HCl 5 mg) 65 mg PO DAILY@ 0600 [facility] Last Admin: 12/21/18 06:50 Dose: 65 mg Pantoprazole Sodium (Protonix -) 40 mg PO DAILY [facility] Last Admin: 12/20/18 10:24 Dose: 40 mg Polyethylene Glycol (Miralax (For Daily Use) -) 17 gm PO BID [facility] Last Admin: 12/20/18 21:50 Dose: Not Given Prednisone (Deltasone -) 40 mg PO DAILY [facility] Rivaroxaban (Xarelto -) 20 mg PO DAILY@1800 [facility] Last Admin: 12/20/18 17:23 Dose: 20 mg Sotalol HCl (Betapace -) 80 mg PO BID [facility] Last Admin: 12/20/18 21:49 Dose: 80 mg - Review of Systems Cardiovascular: As noted above Respiratory: denies: denies: Cough or Sputum Production Gastrointestinal: denies: Nausea, Vomiting, Diarrhea, Constipation or Abdominal Discomfort Musculoskeletal: No Symptoms Reported Endocrine: No Symptoms Reported - Objective Vital Signs: Last Vital Signs Temp Pulse Resp BP Pulse Ox 98.1 F 123 H 22 H 143/98 99 12/21/18 06:00 12/21/18 06:00 12/21/18 06:00 12/21/18 06:00 12/21/18 06:00 Intake & Output 12/18/18 12/19/18 12/20/18 12/21/18 23:59 23:59 23:59 23:59 Intake Total 1170 700 830 200 Output Total 300 1400 Balance 1170 400 -570 200 Weight 198 lb 200 lb 199 lb 12.8 oz Neck: Supple Negative JVD No Bruit Cardiovascular: S1 S2 Irregularly Irregular Respiratory: Diminished Breath Sounds Bilaterally No Rhonchi Gastrointestinal: Soft Benign Normal Bowel Sounds Ext: Trace Edema Bilaterally Labs: CBC, BMP 12/21/18 05:30 12/21/18 05:30 Hepatic Panel Total Bilirubin 0.4 mg/dL (0.2-1) 12/21/18 05:30 Direct Bilirubin 0.2 mg/dL (0.0-0.2) 12/20/18 07:08 AST 18 U/L (15-37) 12/21/18 05:30 ALT 73 U/L (13-61) H 12/21/18 05:30 Alkaline Phosphatase 131 U/L (45-117) H 12/21/18 05:30 Albumin 3.0 g/dl (3.4-5.0) L 12/21/18 05:30 INR, PTT INR 1.39 (0.83-1.09) H 12/17/18 20:40 Assessment/Plan ASSESSMENT: 1. Paroxysmal atrial fibrillation/atrial flutter recurrent arrhythmia with RVR [id number] score of 4, on DOAC's/Xarelto, recurrent symptomatic arrhythmia this AM 2. CAD/CAC- coronary artery calcification/CT scan chest dated 12/23/16 abnormal MPI study demand ischemic injury angina pectoris, chest pain syndrome with recurrent arrhythmia as noted above 3. Acute on chronic class I-II NYHA classification LV diastolic failure, resolved 4. HTN 5. DM 6. Hypercholesterolemia 7. 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 COPD with exacerbation, resolved 9. Prior history of substance abuse/Opioid dependence currently on Methadone treatment PLAN: 1. Continue Xarelto 2. Continue Cardizem CD, hemodynamics permitting, additional IV Cardizem to assist with rate control 3. Add ACEI or ARBS unless contraindicated, hemodynamics permitting and renal function at baseline 4. Continue Betapace with caution and close monitoring of QTc interval/EKG's noted 5. Continue diuretics 6. Steroids and bronchodilators as per the primary team Araceli Brownlee M.D.
[2018-12-21] MEDS: predniSONE 20 MG TABLET (UD) PO SCH (09:25)
[2018-12-21] MEDS: SOTALOL HCL 80 MG TABLET (FP) PO SCH ×2 (09:25→21:26)
[2018-12-21] MEDS: FUROSEMIDE 40 MG TABLET (FP) PO SCH (09:26)
[2018-12-21] MEDS: POLYETHYLENE GLYCOL 3350 119 GM BTL PO SCH ×2 (09:26→21:27)
[2018-12-21] MEDS: PANTOPRAZOLE 40 MG TABLET (FP) PO SCH (09:26)
[2018-12-21] MEDS ORDERED: dilTIAZem HCL 50 MG/10 ML - 10 ML VIAL IVPUSH ONE (10:15)
--- NOTE | 2018-12-21 11:11 | PN ---
Progress Note, Physician History of Present Illness: pulmonary alert,oob-chair,comfortable at rest ,+ lyman - Current Medication List Current Medications: Active Medications Acetaminophen (Tylenol -) 325 mg PO Q6H PRN PRN Reason: PAIN LEVEL 4 - 6 Last Admin: 12/19/18 08:44 Dose: 325 mg Albuterol Sulfate (Ventolin 0.083% Nebulizer Soln -) 1 amp [facility]B [facility]QID [facility] Last Admin: 12/20/18 22:32 Dose: Not Given Albuterol/Ipratropium (Duoneb -) 1 amp NEB RQID [facility] Last Admin: 12/20/18 21:35 Dose: 1 amp Diltiazem HCl (Cardizem Cd -) 120 mg PO DAILY [facility] Last Admin: 12/21/18 10:38 Dose: 120 mg Docusate Sodium (Colace -) 100 mg PO Q12H PRN PRN Reason: CONSTIPATION Furosemide (Lasix -) 40 mg PO DAILY [facility] Last Admin: 12/21/18 09:26 Dose: 40 mg Insulin Aspart (Novolog Vial Sliding Scale -) 1 vial SQ [facility]; Protocol Last Admin: 12/21/18 06:53 Dose: 4 units Methadone HCl 40 mg/ Methadone (HCl 20 mg/ Methadone HCl 5 mg) 65 mg PO DAILY@ 0600 [facility] Last Admin: 12/21/18 06:50 Dose: 65 mg Pantoprazole Sodium (Protonix -) 40 mg PO DAILY [facility] Last Admin: 12/21/18 09:26 Dose: 40 mg Polyethylene Glycol (Miralax (For Daily Use) -) 17 gm PO BID [facility] Last Admin: 12/21/18 09:26 Dose: 17 gm Prednisone (Deltasone -) 40 mg PO DAILY [facility] Last Admin: 12/21/18 09:25 Dose: 40 mg Rivaroxaban (Xarelto -) 20 mg PO DAILY@1800 [facility] Last Admin: 12/20/18 17:23 Dose: 20 mg Sotalol HCl (Betapace -) 80 mg PO BID [facility] Last Admin: 12/21/18 09:25 Dose: 80 mg - Objective Vital Signs: Vital Signs Temperature 98.8 F 12/21/18 09:49 Pulse Rate 128 H 12/21/18 09:49 Respiratory Rate 20 12/21/18 09:49 Blood Pressure 154/86 12/21/18 09:49 O2 Sat by Pulse Oximetry (%) 99 12/21/18 06:00 Constitutional: Yes: Well Nourished, Calm Eyes: Yes: WNL HENT: Yes: WNL Neck: Yes: WNL Cardiovascular: Yes: Tachycardia, Pulse Irregular, S1, S2 Respiratory: Yes: Diminished Gastrointestinal: Yes: Normal Bowel Sounds, Soft Extremities: Yes: WNL Edema: Yes Edema: LLE: Trace, RLE: Trace Labs: CBC, BMP 12/21/18 05:30 12/21/18 05:30 INR, PTT INR 1.39 (0.83-1.09) H 12/17/18 20:40 Assessment/Plan Problem List - Problems (1) Atrial fibrillation with rapid ventricular response Code(s): I48.91 - UNSPECIFIED ATRIAL FIBRILLATION (2) Acute on chronic diastolic CHF (congestive heart failure) Code(s): I50.33 - ACUTE ON CHRONIC DIASTOLIC (CONGESTIVE) HEART FAILURE (3) COPD exacerbation Code(s): J44.1 - CHRONIC OBSTRUCTIVE PULMONARY DISEASE W (ACUTE) EXACERBATION (4) Shortness of breath Code(s): R06.02 - SHORTNESS OF BREATH (5) CHF (congestive heart failure) Code(s): I50.9 - HEART FAILURE, UNSPECIFIED (6) Diabetes type 2, controlled Code(s): E11.9 - TYPE 2 DIABETES MELLITUS WITHOUT COMPLICATIONS Qualifiers: Diabetes mellitus general service technician insulin use: without general service technician use (7) Methadone dependence Code(s): F11.20 - OPIOID DEPENDENCE, UNCOMPLICATED (8) PAD (peripheral artery disease) Code(s): I73.9 - PERIPHERAL VASCULAR DISEASE, UNSPECIFIED (9) Paroxysmal atrial fibrillation Code(s): I48.0 - PAROXYSMAL ATRIAL FIBRILLATION Assessment/Plan DYSPNEA ACUTE MILD BRONCHITIS COPD AFIB PVD CHF NIDDM PLAN RATE CONTROL PER CARDIOLOGY ANTICOAGULATION STEROIDS CONTINUE NEBS O2 SUPPLEMENTATION OUTPATIENT PFTS DR PARSONS
--- NOTE | 2018-12-21 11:39 | PN ---
Physical Exam: SUBJECTIVE: Patient seen and examined at bedside this morning. Overnight telemetry shows Afib up to 140BPM. Patient continues to endorse shortness of breath. OBJECTIVE: Vital Signs Period Temp Pulse Resp BP Sys/Chatterjee Pulse Ox Last 24 Hr 97.9 F-98.8 F 105-128 20-22 133-154/82-98 98-99 GENERAL: The patient is awake, alert, and fully oriented, in no acute distress. HEAD: Normocephalic, atraumatic. EYES: PERRL, extraocular movements intact, sclera anicteric, conjunctiva clear. ENT: Oropharynx clear without exudates, moist mucous membranes. NECK: Trachea midline, full range of motion, supple without lymphadenopathy LUNGS: Good inspiratory effort, and poor air entry bilaterally. No wheezes, or crackles auscultated. No accessory lung use. HEART: Irregular rate and rhythm, S1, S2 without murmur, rub or gallop. ABDOMEN: Soft, nontender, nondistended, normoactive bowel sounds, no guarding, no rebound, no hepatosplenomegaly, no masses. EXTREMITIES: 2+ radial, dorsalis pedis pulses bilaterally, warm, well-perfused. 1+ edema, which chronic venous stasis changes bilaterally. NEUROLOGICAL: Cranial nerves II through XII grossly intact. Normal speech PSYCH: Mood and affect appropriate upon my encounter. Laboratory Results - last 24 hr 12/20/18 12/20/18 12/21/18 17:15 21:47 05:30 WBC 19.8 H RBC 4.01 Hgb 11.9 Hct 37.5 MCV 93.4 MCH 29.7 MCHC 31.8 L RDW 16.5 H Plt Count 158 MPV 10.3 Sodium Potassium Chloride Carbon Dioxide Anion Gap BUN Creatinine Creat Clearance w eGFR POC Glucometer 264 245 Random Glucose Calcium Total Bilirubin AST ALT Alkaline Phosphatase Total Protein Albumin 12/21/18 12/21/18 05:30 06:48 WBC RBC Hgb Hct MCV MCH MCHC RDW Plt Count MPV Sodium 139 Potassium 4.2 Chloride 99 Carbon Dioxide 34 H Anion Gap 6 L BUN 36 H Creatinine 1.1 Creat Clearance w eGFR 67.61 POC Glucometer 204 Random Glucose 210 H Calcium 8.8 Total Bilirubin 0.4 AST 18 ALT 73 H Alkaline Phosphatase 131 H Total Protein 5.6 L Albumin 3.0 L Active Medications Generic Name Dose Route Start Last Admin Trade Name Freq PRN Reason Stop Dose Admin Acetaminophen 325 mg 12/18/18 23:18 12/19/18 08:44 Tylenol - PO 325 mg Q6H PRN Administration PAIN LEVEL 4 - 6 Albuterol Sulfate 1 amp 12/18/18 12:00 12/20/18 22:32 Ventolin 0.083% Nebulizer Soln - NEB Not Given RQID [facility] Albuterol/Ipratropium 1 amp 12/18/18 08:00 12/20/18 21:35 Duoneb - NEB 1 amp RQID [facility] Administration Diltiazem HCl 120 mg 12/19/18 08:28 12/21/18 10:38 Cardizem Cd - PO 120 mg DAILY [facility] Administration Docusate Sodium 100 mg 12/18/18 12:57 Colace - PO Q12H PRN CONSTIPATION Furosemide 40 mg 12/18/18 10:00 12/21/18 09:26 Lasix - PO 40 mg DAILY [facility] Administration Insulin Aspart 1 vial 12/18/18 07:00 12/21/18 06:53 Novolog Vial Sliding Scale - SQ 4 units ACHS [facility] Administration Protocol Methadone HCl 40 mg/ Methadone 65 mg 12/19/18 09:30 12/21/18 06:50 HCl 20 mg/ Methadone HCl 5 mg PO 65 mg DAILY@0600 [facility] Administration Pantoprazole Sodium 40 mg 12/18/18 10:00 12/21/18 09:26 Protonix - PO 40 mg DAILY [facility] Administration Polyethylene Glycol 17 gm 12/18/18 13:00 12/21/18 09:26 Miralax (For Daily Use) - PO 17 gm BID [facility] Administration Prednisone 40 mg 12/21/18 10:00 12/21/18 09:25 Deltasone - PO 40 mg DAILY [facility] Administration Rivaroxaban 20 mg 12/18/18 18:00 12/20/18 17:23 Xarelto - PO 20 mg DAILY@1800 [facility] Administration Sotalol HCl 80 mg 12/18/18 10:41 12/21/18 09:25 Betapace - PO 80 mg BID [facility] Administration ASSESSMENT/PLAN: Patient is a 63 year old male with history of HFpEF, pulmonary hypertension, Afib on Xarelto, COPD (on home oxygen 2L), non insulin dependent diabetes mellitus, opiod dependence (on methadone) presented with complaint of shortness of breath. Acute hypoxic respiratory failure secondary to COPD exacerbation -Chest radiograph shows no acute infiltrates -Duonebs QID standing -Methylprednisone 40mg IV Q8 Hours -Maintain oxygen saturation greater than 90% -Pulmonology recommendations appreciated. CHF, diastolic -ECHO (10/2018) LV normal size, thickness, function. EF 60-65% LA mildly dilated. Trace MR. Pulmonary artery pressure at least 40mmHg. -Lasix 40mg IV daily -Daily weights -Strict intake output -Cardiology consult (Dr. Brownlee) appreciated. Afib -EKG on admission showed Afib with RVR. -20mg IV cardizem IV push today one time dose for rate control. -Cardizem 120mg PO dialy -Sotalol 80mg PO BID -Xarelto 20mg PO daily -Telemetry monitoring Troponinemia -Troponin peaked at 0.25. Likely secondary to demand ischemia. History of opiod dependence -Methadone 65mg PO daily GERD -Protonix 40mg PO daily Diabetes mellitus -HbA1c 6.5% -Insulin sliding scale ACHS -Fingerstick blood glucose monitoring ACHS Hypertension -Patient is currently on Cardizem, and Sotalol. -Follow vital signs closely. Hyperkalemia -Resolved. Follow CMP FEN -No IV fluids indicated. -Follow CMP -Diabetic diet Prophylaxis -Patient is on Xarelto 20mg PO daily for Afib -Protonix 40mg PO daily Disposition -Continue care in Telemetry floor Visit type - Emergency Visit Emergency Visit: Yes ED Registration Date: 12/18/18 Care time: The patient presented to the Emergency Department on the above date and was hospitalized for further evaluation of their emergent condition. - New Patient This patient is new to me today: No - Critical Care Critical Care patient: No - Discharge Referral Referred to [facility] No
--- NOTE | 2018-12-21 11:44 | PN ---
Teaching Attending Note Name of Resident: Montrell Zapien ATTENDING PHYSICIAN STATEMENT I saw and evaluated the patient. I reviewed the resident's note and discussed the case with the resident. I agree with the resident's findings and plan as documented. SUBJECTIVE: Chest pain overnight, reverted to Afib with RVR requiring IV Cardizem. OBJECTIVE: Afebrile, Hemodynamically Stable. HR in 120s Last Vital Signs Temp Pulse Resp BP Pulse Ox 98.8 F 128 H 20 154/86 99 12/21/18 09:49 12/21/18 09:49 12/21/18 09:49 12/21/18 09:49 12/21/18 06:00 Heart - S1, S2, irregular, techy Lungs - decreased air entry, occassional wheeze. Abdomen - Soft, non-tender. Bowel Sounds normal. Extremities - mild edema, no calf tenderness, excoriation hastings, venous stasis Laboratory Results - last 24 hr 12/20/18 12/20/18 12/21/18 17:15 21:47 05:30 WBC 19.8 H RBC 4.01 Hgb 11.9 Hct 37.5 MCV 93.4 MCH 29.7 MCHC 31.8 L RDW 16.5 H Plt Count 158 MPV 10.3 Sodium Potassium Chloride Carbon Dioxide Anion Gap BUN Creatinine Creat Clearance w eGFR POC Glucometer 264 245 Random Glucose Calcium Total Bilirubin AST ALT Alkaline Phosphatase Total Protein Albumin 12/21/18 12/21/18 05:30 06:48 WBC RBC Hgb Hct MCV MCH MCHC RDW Plt Count MPV Sodium 139 Potassium 4.2 Chloride 99 Carbon Dioxide 34 H Anion Gap 6 L BUN 36 H Creatinine 1.1 Creat Clearance w eGFR 67.61 POC Glucometer 204 Random Glucose 210 H Calcium 8.8 Total Bilirubin 0.4 AST 18 ALT 73 H Alkaline Phosphatase 131 H Total Protein 5.6 L Albumin 3.0 L Current Medications Generic Name Dose Route Start Last Admin Trade Name Freq PRN Reason Stop Dose Admin Acetaminophen 325 mg 12/18/18 23:18 12/19/18 08:44 Tylenol - PO 325 mg Q6H PRN Administration PAIN LEVEL 4 - 6 Albuterol Sulfate 1 amp 12/18/18 12:00 12/20/18 22:32 Ventolin 0.083% Nebulizer Soln - NEB Not Given RQID DOMINIC Albuterol/Ipratropium 1 amp 12/18/18 08:00 12/20/18 21:35 Duoneb - NEB 1 amp RQID [facility] Administration Diltiazem HCl 120 mg 12/19/18 08:28 12/21/18 10:38 Cardizem Cd - PO 120 mg DAILY [facility] Administration Docusate Sodium 100 mg 12/18/18 12:57 Colace - PO Q12H PRN CONSTIPATION Furosemide 40 mg 12/18/18 10:00 12/21/18 09:26 Lasix - PO 40 mg DAILY [facility] Administration Insulin Aspart 1 vial 12/18/18 07:00 12/21/18 06:53 Novolog Vial Sliding Scale - SQ 4 units ACHS [facility] Administration Protocol Methadone HCl 40 mg/ Methadone 65 mg 12/19/18 09:30 12/21/18 06:50 HCl 20 mg/ Methadone HCl 5 mg PO 65 mg DAILY@0600 [facility] Administration Pantoprazole Sodium 40 mg 12/18/18 10:00 12/21/18 09:26 Protonix - PO 40 mg DAILY [facility] Administration Polyethylene Glycol 17 gm 12/18/18 13:00 12/21/18 09:26 Miralax (For Daily Use) - PO 17 gm BID [facility] Administration Prednisone 40 mg 12/21/18 10:00 12/21/18 09:25 Deltasone - PO 40 mg DAILY [facility] Administration Rivaroxaban 20 mg 12/18/18 18:00 12/20/18 17:23 Xarelto - PO 20 mg DAILY@1800 [facility] Administration Sotalol HCl 80 mg 12/18/18 10:41 12/21/18 09:25 Betapace - PO 80 mg BID [facility] Administration ASSESSMENT AND PLAN: 63 year old Male with history of chronic diastolic heart failure, HTN, Paroxysmal Atrial Fibrillation on Xarelto, chronic hypoxic respiratory failure sec to COPD (on 2L O2), Pulmonary HTN, DM 2, PAD with distal aortic 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 1. Paroxysmal Atrial Fibrillation with RVR Reverted overnight to Atrial Fibrillatiojn with RVR after initial conversion to SR. Metoprolol changed to Sotalol and Cardizem added since admission. Now requiring IV doses of Cardizem for rate control. Continue Sotalol, Cardizem (at current dose) and Xarelto as per Cardiology. Cardiology following. Further medication titration depending on rhythm/rate response today. 2. Acute on Chronic Hypoxic Respiratory Failure secondary to Acute Exacerbation of COPD - resolving CXR - no infiltrate Continue DuoNeb. Solumedrol changed to Prednisone 40mg daily. Pulmonary following. Leukocytosis sec to Steroids. PFTs as out-patient. 3. Troponin egression secondary to likely demand ischemia - Cardiology following - for further testing once acute illness and RVR resolves. 4. Chronic diastolic heart failure - Stable. Continue Lasix. 5. DM 2 - Continue Novolog sliding scale. Metformin held. 6. Opioid dependence/Hx substance abuse - Continue methadone maintenance 7. Pulmonary HTN - on Home O2. 8. GERD - continue PPI. 9. Hyperkalemia - resolved s/p Kayexalate. DVT Px - on Xarelto
[2018-12-21] MEDS: RIVAROXABAN 20 MG TABLET PO SCH (18:04)
[2018-12-21] MEDS ORDERED: dilTIAZem HCL 50 MG/10 ML - 10 ML VIAL IVPUSH PRN (18:52)
[2018-12-22] MEDS ORDERED: METHADONE HCL 40 MG DISPERSABLE TABLET ONE (06:18)
[2018-12-22] MEDS ORDERED: METHADONE HCL 10 MG TABLET ONE (06:19)
[2018-12-22] MEDS ORDERED: METHADONE HCL 5 MG TABLET ONE (06:19)
[2018-12-22] MEDS: METHADONE 40 MG, METHADONE 20 MG, METHADONE 5 MG PO SCH (06:27)
[2018-12-22] MEDS: INSULIN SLIDING SCALE (NOVOLOG) 1 VIAL SQ SCH ×4 (06:28→22:18)
[2018-12-22 06:33] LABS: HEMATOCRIT 37.7 % (35.4-49); HEMOGLOBIN 12.4 GM/dL (11.7-16.9); MCH 30.4 pg (25.7-33.7); MCHC 32.8 g/dl (32.0-35.9); MEAN CELL VOLUME 92.5 fl (80-96); PLATELET COUNT 157 K/MM3 (134-434); RBC 4.07 M/mm3 (4.00-5.60); RDW 16.3 % (11.9-15.9); WHITE BLOOD COUNT 20.6 K/mm3 (4.0-10.0)
[2018-12-22 07:05] LABS: ALK PHOS 136 U/L (45-117); ANION GAP 5 MMOL/L (8-16); BILIRUBIN,TOTAL 0.6 mg/dL (0.2-1); BLOOD UREA NITROGEN 36 mg/dL (7-18); CALCIUM 8.8 mg/dL (8.5-10.1); CHLORIDE 99 mmol/L (98-107); CO2 34 mmol/L (21-32); CREATININE 1.3 mg/dL (0.55-1.3); GLUCOSE,RANDOM 158 mg/dL (74-106); POTASSIUM 4.1 mmol/L (3.5-5.1); SGOT/AST 20 U/L (15-37); SGPT/ALT 74 U/L (13-61); SODIUM 138 mmol/L (136-145); TOT PROT 5.8 g/dl (6.4-8.2)
[2018-12-22] MEDS: ALBUTEROL SO4 2.5/IPRATROPIUM 0.5 INH SOL 3 ML VIAL.NEB. NEB SCH ×4 (07:15→21:15)
[2018-12-22] MEDS: PANTOPRAZOLE 40 MG TABLET (FP) PO SCH (09:50)
[2018-12-22] MEDS: DOCUSATE SODIUM 100 MG CAPSULE (FP) PO SCH ×2 (09:50→18:16)
[2018-12-22] MEDS: SOTALOL HCL 80 MG TABLET (FP) PO SCH ×2 (09:50→22:14)
[2018-12-22] MEDS: predniSONE 20 MG TABLET (UD) PO SCH (09:51)
[2018-12-22] MEDS: FUROSEMIDE 40 MG TABLET (FP) PO SCH (09:51)
[2018-12-22] MEDS: POLYETHYLENE GLYCOL 3350 119 GM BTL PO SCH ×2 (09:52→22:14)
[2018-12-22] MEDS ORDERED: NITROGLYCERIN SUBLINGUAL 1/200 0.3 MG BTL SL PRN (10:00)
--- NOTE | 2018-12-22 10:17 | PN ---
Teaching Attending Note Name of Resident: Montrell Zapien ATTENDING PHYSICIAN STATEMENT I saw and evaluated the patient. I reviewed the resident's note and discussed the case with the resident. I agree with the resident's findings and plan as documented. SUBJECTIVE: Chest pain/burning again overnight and this am, with periods of RVR requiring IV Cardizem. OBJECTIVE: Afebrile, Hemodynamically Stable. HR up to 130s overnight Last Vital Signs Temp Pulse Resp BP Pulse Ox 98.1 F 106 H 20 156/107 H 98 12/22/18 06:00 12/22/18 06:00 12/22/18 06:00 12/22/18 06:00 12/21/18 21:01 Heart - S1, S2, irregular, techy Lungs - decreased air entry, no wheeze. Abdomen - Soft, non-tender. Bowel Sounds normal. Extremities - mild edema, no calf tenderness, excoriation hastings, venous stasis Laboratory Results - last 24 hr 12/21/18 12/21/18 12/21/18 11:49 17:23 21:30 WBC RBC Hgb Hct MCV MCH MCHC RDW Plt Count MPV Sodium Potassium Chloride Carbon Dioxide Anion Gap BUN Creatinine Creat Clearance w eGFR POC Glucometer 238 336 242 Random Glucose Calcium Total Bilirubin AST ALT Alkaline Phosphatase Total Protein Albumin 12/22/18 12/22/18 12/22/18 05:30 05:30 05:50 WBC 20.6 H RBC 4.07 Hgb 12.4 Hct 37.7 MCV 92.5 MCH 30.4 MCHC 32.8 RDW 16.3 H Plt Count 157 MPV 10.0 Sodium 138 Potassium 4.1 Chloride 99 Carbon Dioxide 34 H Anion Gap 5 L BUN 36 H Creatinine 1.3 Creat Clearance w eGFR 55.75 POC Glucometer 159 Random Glucose 158 H Calcium 8.8 Total Bilirubin 0.6 AST 20 ALT 74 H Alkaline Phosphatase 136 H Total Protein 5.8 L Albumin 3.0 L Current Medications Generic Name Dose Route Start Last Admin Trade Name Freq PRN Reason Stop Dose Admin Acetaminophen 325 mg 12/18/18 23:18 12/19/18 08:44 Tylenol - PO 325 mg Q6H PRN Administration PAIN LEVEL 4 - 6 Albuterol Sulfate 1 amp 12/18/18 12:00 12/20/18 22:32 Ventolin 0.083% Nebulizer Soln - NEB Not Given RQID [facility]INIC Albuterol/Ipratropium 1 amp 12/18/18 08:00 12/21/18 21:41 Duoneb - NEB Not Given RQID [facility] Diltiazem HCl 240 mg 12/22/18 07:28 12/22/18 09:52 Cardizem Cd - PO Not Given DAILY [facility] Docusate Sodium 100 mg 12/22/18 07:15 12/22/18 09:50 Colace - PO 100 mg Q12H [facility] Administration Furosemide 40 mg 12/18/18 10:00 12/22/18 09:51 Lasix - PO 40 mg DAILY [facility] Administration Insulin Aspart 1 vial 12/18/18 07:00 12/22/18 06:28 Novolog Vial Sliding Scale - SQ Not Given ACHS [facility] Protocol Methadone HCl 40 mg/ Methadone 65 mg 12/19/18 09:30 12/22/18 06:27 HCl 20 mg/ Methadone HCl 5 mg PO 65 mg DAILY@0600 [facility] Administration Nitroglycerin 0.3 mg 12/22/18 10:00 Nitrostat - SL ONCE PRN FOR CHEST PAIN Pantoprazole Sodium 40 mg 12/18/18 10:00 12/22/18 09:50 Protonix - PO 40 mg DAILY [facility] Administration Polyethylene Glycol 17 gm 12/18/18 13:00 12/22/18 09:52 Miralax (For Daily Use) - PO 17 gm BID [facility] Administration Prednisone 40 mg 12/21/18 10:00 12/22/18 09:51 Deltasone - PO 40 mg DAILY [facility] Administration Rivaroxaban 20 mg 12/18/18 18:00 12/21/18 18:04 Xarelto - PO 20 mg DAILY@1800 [facility] Administration Senna 2 tab 12/22/18 22:00 Senna - PO HS [facility] Sotalol HCl 80 mg 12/18/18 10:41 12/22/18 09:50 Betapace - PO 80 mg BID DOMINIC Administration ASSESSMENT AND PLAN: 63 year old Male with history of chronic diastolic heart failure, HTN, Paroxysmal Atrial Fibrillation on Xarelto, chronic hypoxic respiratory failure sec to COPD (on 2L O2), Pulmonary HTN, DM 2, PAD with distal aortic 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 1. Paroxysmal Atrial Fibrillation with RVR In Atrial Fibrillatiojn with RVR after initial conversion to SR. Metoprolol changed to Sotalol and Cardizem added since admission. Will increase Cardizem dose to 240mg. Continue Sotalol, Cardizem and Xarelto. Cardiology following. Further medication titration depending on rhythm/rate response today. 2. Acute on Chronic Hypoxic Respiratory Failure secondary to Acute Exacerbation of COPD - resolving CXR - no infiltrate Continue DuoNeb, Prednisone 40mg daily. Pulmonary following. Leukocytosis sec to Steroids. PFTs as out-patient. 3. Troponin egression secondary to likely demand ischemia - unclear whether current episodes of chest pain/burning is ischemia related - Cardiology following - for further testing once acute illness and RVR resolves as per Cardio. 4. Chronic diastolic heart failure - Stable. Continue Lasix. 5. DM 2 - Continue Novolog sliding scale. Metformin held. 6. Opioid dependence/Hx substance abuse - Continue methadone maintenance 7. Pulmonary HTN - on Home O2. 8. GERD - continue PPI. 9. Hyperkalemia - resolved s/p Kayexalate. DVT Px - on Xarelto
--- NOTE | 2018-12-22 10:17 | PN ---
Progress Note, Physician History of Present Illness: Dyspnea on exertion= w/o recurrent chest burning, PAF with RVR now in SR. - Current Medication List Current Medications: Active Medications Acetaminophen (Tylenol -) 325 mg PO Q6H PRN PRN Reason: PAIN LEVEL 4 - 6 Last Admin: 12/19/18 08:44 Dose: 325 mg Albuterol Sulfate (Ventolin 0.083% Nebulizer Soln -) 1 amp NEB RQID [facility] Last Admin: 12/20/18 22:32 Dose: Not Given Albuterol/Ipratropium (Duoneb -) 1 amp NEB RQID [facility] Last Admin: 12/21/18 21:41 Dose: Not Given Diltiazem HCl (Cardizem Cd -) 240 mg PO DAILY [facility] Last Admin: 12/22/18 09:52 Dose: Not Given Docusate Sodium (Colace -) 100 mg PO Q12H [facility] Last Admin: 12/22/18 09:50 Dose: 100 mg Furosemide (Lasix -) 40 mg PO DAILY [facility] Last Admin: 12/22/18 09:51 Dose: 40 mg Insulin Aspart (Novolog Vial Sliding Scale -) 1 vial SQ [facility]; Protocol Last Admin: 12/22/18 06:28 Dose: Not Given Methadone HCl 40 mg/ Methadone (HCl 20 mg/ Methadone HCl 5 mg) 65 mg PO DAILY@ 0600 [facility] Last Admin: 12/22/18 06:27 Dose: 65 mg Nitroglycerin (Nitrostat -) 0.3 mg SL ONCE PRN PRN Reason: FOR CHEST PAIN Pantoprazole Sodium (Protonix -) 40 mg PO DAILY [facility] Last Admin: 12/22/18 09:50 Dose: 40 mg Polyethylene Glycol (Miralax (For Daily Use) -) 17 gm PO BID [facility] Last Admin: 12/22/18 09:52 Dose: 17 gm Prednisone (Deltasone -) 40 mg PO DAILY [facility] Last Admin: 12/22/18 09:51 Dose: 40 mg Rivaroxaban (Xarelto -) 20 mg PO DAILY@1800 [facility] Last Admin: 12/21/18 18:04 Dose: 20 mg Senna (Senna -) 2 tab PO [facility] Sotalol HCl (Betapace -) 80 mg PO BID [facility] Last Admin: 12/22/18 09:50 Dose: 80 mg - Objective Vital Signs: Vital Signs Temperature 98.1 F 12/22/18 06:00 Pulse Rate 106 H 12/22/18 06:00 Respiratory Rate 20 12/22/18 06:00 Blood Pressure 156/107 H 12/22/18 06:00 O2 Sat by Pulse Oximetry (%) 98 12/21/18 21:01 Constitutional: Yes: No Distress, Calm, Thin Neck: Yes: Supple Cardiovascular: Yes: Regular Rate and Rhythm Respiratory: Yes: Regular, Diminished, On Nasal O2 Gastrointestinal: Yes: Normal Bowel Sounds, Soft Edema: Yes Edema: LLE: Trace, RLE: Trace Labs: CBC, BMP 12/22/18 05:30 12/22/18 05:30 INR, PTT INR 1.39 (0.83-1.09) H 12/17/18 20:40 - ....Imaging EKG: Report Reviewed (Tele: PAF with RVR->SR) Problem List - Problems (1) Acute on chronic diastolic CHF (congestive heart failure) Code(s): I50.33 - ACUTE ON CHRONIC DIASTOLIC (CONGESTIVE) HEART FAILURE (2) Shortness of breath Code(s): R06.02 - SHORTNESS OF BREATH (3) COPD (chronic obstructive pulmonary disease) Code(s): J44.9 - CHRONIC OBSTRUCTIVE PULMONARY DISEASE, UNSPECIFIED Qualifiers: COPD type: unspecified COPD Qualified Code(s): J44.9 - Chronic obstructive pulmonary disease, unspecified (4) Methadone dependence Code(s): F11.20 - OPIOID DEPENDENCE, UNCOMPLICATED (5) Paroxysmal atrial fibrillation Code(s): I48.0 - PAROXYSMAL ATRIAL FIBRILLATION (6) S/P aorto-bifemoral bypass surgery Code(s): Z95.828 - PRESENCE OF OTHER VASCULAR IMPLANTS AND GRAFTS Assessment/Plan 11/14/2018 Echo: Normal LV size and fxn LVEF 60-65%, normal RV size and fxn, mild LAE, RVSP 40 mmHg 12/23/2016 P-Myoview: Small size, mild inferior ischemia LVEF 71% 1. Paroxysmal atrial fibrillation/atrial flutter recurrent arrhythmia with RVR [id number] score of 4, on DOAC's/Xarelto, recurrent symptomatic arrhythmia this AM 2. CAD/CAC- coronary artery calcification/CT scan chest dated 12/23/16 abnormal MPI study demand ischemic injury angina pectoris, chest pain syndrome with recurrent arrhythmia as noted above 3. Acute on chronic class I-II NYHA classification LV diastolic failure, resolved 4. HTN 5. DM 6. Hypercholesterolemia 7. 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 COPD with exacerbation, resolved 9. Prior history of substance abuse/Opioid dependence currently on Methadone treatment PLAN: 1. Continue Xarelto 20 qd 2. Increased Cardizem CD 240 qd, hemodynamics permitting, additional IV Cardizem to assist with rate control 3. Resume Diovan 80 qd, hemodynamics permitting once renal function at baseline 4. Continue Betapace 80 bid with caution and close monitoring of QTc interval/ EKG's noted 5. Continue diuretics Lasix 40 qd 6. Oral steroids, bronchodilators, O2 as needed
--- NOTE | 2018-12-22 10:53 | PN ---
Physical Exam: SUBJECTIVE: Patient seen and examined at bedside this morning. Overnight telemetry shows paroysmal Afib up to 140BPM. Patient continues to endorse chest burning with associated shortness of breath. OBJECTIVE: Vital Signs Period Temp Pulse Resp BP Sys/Chatterjee Pulse Ox Last 24 Hr 98.1 F-98.5 F 106-131 20-20 114-156/72-107 98-98 GENERAL: The patient is awake, alert, and fully oriented, in no acute distress. HEAD: Normocephalic, atraumatic. EYES: PERRL, extraocular movements intact, sclera anicteric, conjunctiva clear. ENT: Oropharynx clear without exudates, moist mucous membranes. NECK: Trachea midline, full range of motion, supple without lymphadenopathy LUNGS: Good inspiratory effort, and poor air entry bilaterally. No wheezes, or crackles auscultated. No accessory lung use. HEART: Irregular rate and rhythm, S1, S2 without murmur, rub or gallop. ABDOMEN: Soft, nontender, nondistended, normoactive bowel sounds, no guarding, no rebound, no hepatosplenomegaly, no masses. EXTREMITIES: 2+ radial, dorsalis pedis pulses bilaterally, warm, well-perfused. 1+ edema, which chronic venous stasis changes bilaterally. NEUROLOGICAL: Cranial nerves II through XII grossly intact. Normal speech PSYCH: Mood and affect appropriate upon my encounter. Laboratory Results - last 24 hr 12/21/18 12/21/18 12/21/18 11:49 17:23 21:30 WBC RBC Hgb Hct MCV MCH MCHC RDW Plt Count MPV Sodium Potassium Chloride Carbon Dioxide Anion Gap BUN Creatinine Creat Clearance w eGFR POC Glucometer 238 336 242 Random Glucose Calcium Total Bilirubin AST ALT Alkaline Phosphatase Total Protein Albumin 12/22/18 12/22/18 12/22/18 05:30 05:30 05:50 WBC 20.6 H RBC 4.07 Hgb 12.4 Hct 37.7 MCV 92.5 MCH 30.4 MCHC 32.8 RDW 16.3 H Plt Count 157 MPV 10.0 Sodium 138 Potassium 4.1 Chloride 99 Carbon Dioxide 34 H Anion Gap 5 L BUN 36 H Creatinine 1.3 Creat Clearance w eGFR 55.75 POC Glucometer 159 Random Glucose 158 H Calcium 8.8 Total Bilirubin 0.6 AST 20 ALT 74 H Alkaline Phosphatase 136 H Total Protein 5.8 L Albumin 3.0 L Active Medications Generic Name Dose Route Start Last Admin Trade Name Freq PRN Reason Stop Dose Admin Acetaminophen 325 mg 12/18/18 23:18 12/19/18 08:44 Tylenol - PO 325 mg Q6H PRN Administration PAIN LEVEL 4 - 6 Albuterol Sulfate 1 amp 12/18/18 12:00 12/20/18 22:32 Ventolin 0.083% Nebulizer Soln - NEB Not Given RQID [facility]INIC Albuterol/Ipratropium 1 amp 12/18/18 08:00 12/21/18 21:41 Duoneb - NEB Not Given RQID [facility]INIC Diltiazem HCl 240 mg 12/22/18 07:28 12/22/18 09:52 Cardizem Cd - PO Not Given DAILY [facility] Docusate Sodium 100 mg 12/22/18 07:15 12/22/18 09:50 Colace - PO 100 mg Q12H [facility] Administration Furosemide 40 mg 12/18/18 10:00 12/22/18 09:51 Lasix - PO 40 mg DAILY [facility] Administration Insulin Aspart 1 vial 12/18/18 07:00 12/22/18 06:28 Novolog Vial Sliding Scale - SQ Not Given ACHS [facility] Protocol Methadone HCl 40 mg/ Methadone 65 mg 12/19/18 09:30 12/22/18 06:27 HCl 20 mg/ Methadone HCl 5 mg PO 65 mg DAILY@0600 [facility] Administration Nitroglycerin 0.3 mg 12/22/18 10:00 Nitrostat - SL ONCE PRN FOR CHEST PAIN Pantoprazole Sodium 40 mg 12/18/18 10:00 12/22/18 09:50 Protonix - PO 40 mg DAILY [facility] Administration Polyethylene Glycol 17 gm 12/18/18 13:00 12/22/18 09:52 Miralax (For Daily Use) - PO 17 gm BID [facility] Administration Prednisone 40 mg 12/21/18 10:00 12/22/18 09:51 Deltasone - PO 40 mg DAILY [facility] Administration Rivaroxaban 20 mg 12/18/18 18:00 12/21/18 18:04 Xarelto - PO 20 mg DAILY@1800 [facility] Administration Senna 2 tab 12/22/18 22:00 Senna - PO HS [facility] Sotalol HCl 80 mg 12/18/18 10:41 12/22/18 09:50 Betapace - PO 80 mg BID [facility]IC Administration ASSESSMENT/PLAN: Patient is a 63 year old male with history of HFpEF, pulmonary hypertension, Afib on Xarelto, COPD (on home oxygen 2L), non insulin dependent diabetes mellitus, opiod dependence (on methadone) presented with complaint of shortness of breath. Acute hypoxic respiratory failure secondary to COPD exacerbation -Chest radiograph shows no acute infiltrates -Duonebs QID standing -Prednisone 40mg PO daily -Maintain oxygen saturation greater than 90% -Pulmonology recommendations appreciated. CHF, diastolic -ECHO (10/2018) LV normal size, thickness, function. EF 60-65% LA mildly dilated. Trace MR. Pulmonary artery pressure at least 40mmHg. -Lasix 40mg PO daily -Daily weights -Strict intake output -Cardiology consult (Dr. Brownlee) appreciated. Afib -EKG on admission showed Afib with RVR. -Cardizem CD increased to 240mg PO dialy -Sotalol 80mg PO BID -Xarelto 20mg PO daily -Telemetry monitoring Troponinemia -Troponin peaked at 0.25. Likely secondary to demand ischemia. History of opiod dependence -Methadone 65mg PO daily GERD -Protonix 40mg PO daily Diabetes mellitus -HbA1c 6.5% -Insulin sliding scale ACHS -Fingerstick blood glucose monitoring ACHS Hypertension -Patient is currently on Cardizem, and Sotalol. -Follow vital signs closely. Hyperkalemia -Resolved. Follow CMP FEN -No IV fluids indicated. -Follow CMP -Diabetic diet Prophylaxis -Patient is on Xarelto 20mg PO daily for Afib -Protonix 40mg PO daily Disposition -Continue care in Telemetry floor Visit type - Emergency Visit Emergency Visit: Yes ED Registration Date: 12/18/18 Care time: The patient presented to the Emergency Department on the above date and was hospitalized for further evaluation of their emergent condition. - New Patient This patient is new to me today: No - Critical Care Critical Care patient: No - Discharge Referral Referred to [facility] No
[2018-12-22] MEDS: ALBUTEROL SO4 0.083% IH SOL 2.5 MG/3 ML VIAL.NEB. NEB SCH ×4 (12:10→21:20)
--- NOTE | 2018-12-22 13:47 | PN ---
Progress Note, Physician History of Present Illness: PULMONARY ALERT,COMFORTABLE AT REST ,STILL DYSPNEIC WITH EXERTION BUT IMPROVING - Current Medication List Current Medications: Active Medications Acetaminophen (Tylenol -) 325 mg PO Q6H PRN PRN Reason: PAIN LEVEL 4 - 6 Last Admin: 12/19/18 08:44 Dose: 325 mg Albuterol Sulfate (Ventolin 0.083% Nebulizer Soln -) 1 amp NEB RQID [facility] Last Admin: 12/22/18 12:11 Dose: Not Given Albuterol/Ipratropium (Duoneb -) 1 amp NEB RQID [facility] Last Admin: 12/22/18 12:10 Dose: 1 amp Diltiazem HCl (Cardizem Cd -) 240 mg PO DAILY [facility] Last Admin: 12/22/18 09:52 Dose: Not Given Docusate Sodium (Colace -) 100 mg PO Q12H [facility] Last Admin: 12/22/18 09:50 Dose: 100 mg Furosemide (Lasix -) 40 mg PO DAILY [facility] Last Admin: 12/22/18 09:51 Dose: 40 mg Insulin Aspart (Novolog Vial Sliding Scale -) 1 vial SQ [facility]; Protocol Last Admin: 12/22/18 12:09 Dose: 6 units Methadone HCl 40 mg/ Methadone (HCl 20 mg/ Methadone HCl 5 mg) 65 mg PO DAILY@ 0600 [facility] Last Admin: 12/22/18 06:27 Dose: 65 mg Nitroglycerin (Nitrostat -) 0.3 mg SL ONCE PRN PRN Reason: FOR CHEST PAIN Pantoprazole Sodium (Protonix -) 40 mg PO DAILY [facility] Last Admin: 12/22/18 09:50 Dose: 40 mg Polyethylene Glycol (Miralax (For Daily Use) -) 17 gm PO BID [facility] Last Admin: 12/22/18 09:52 Dose: 17 gm Prednisone (Deltasone -) 40 mg PO DAILY [facility] Last Admin: 12/22/18 09:51 Dose: 40 mg Rivaroxaban (Xarelto -) 20 mg PO DAILY@1800 [facility] Last Admin: 12/21/18 18:04 Dose: 20 mg Senna (Senna -) 2 tab PO HS [facility] Sotalol HCl (Betapace -) 80 mg PO BID [facility] Last Admin: 12/22/18 09:50 Dose: 80 mg - Objective Vital Signs: Vital Signs Temperature 98.0 F 12/22/18 10:00 Pulse Rate 138 H 12/22/18 10:00 Respiratory Rate 20 12/22/18 10:00 Blood Pressure 126/82 12/22/18 10:00 O2 Sat by Pulse Oximetry (%) 98 12/22/18 10:00 Constitutional: Yes: Well Nourished, Calm Eyes: Yes: WNL HENT: Yes: WNL Neck: Yes: WNL Cardiovascular: Yes: Pulse Irregular, S1, S2 Respiratory: Yes: Diminished Gastrointestinal: Yes: Normal Bowel Sounds, Soft Extremities: Yes: WNL Edema: Yes Labs: CBC, BMP 12/22/18 05:30 12/22/18 05:30 INR, PTT INR 1.39 (0.83-1.09) H 12/17/18 20:40 Assessment/Plan Problem List - Problems (1) Atrial fibrillation with rapid ventricular response Code(s): I48.91 - UNSPECIFIED ATRIAL FIBRILLATION (2) Acute on chronic diastolic CHF (congestive heart failure) Code(s): I50.33 - ACUTE ON CHRONIC DIASTOLIC (CONGESTIVE) HEART FAILURE (3) COPD exacerbation Code(s): J44.1 - CHRONIC OBSTRUCTIVE PULMONARY DISEASE W (ACUTE) EXACERBATION (4) Shortness of breath Code(s): R06.02 - SHORTNESS OF BREATH (5) CHF (congestive heart failure) Code(s): I50.9 - HEART FAILURE, UNSPECIFIED (6) Diabetes type 2, controlled Code(s): E11.9 - TYPE 2 DIABETES MELLITUS WITHOUT COMPLICATIONS Qualifiers: Diabetes mellitus exterminator termite insulin use: without exterminator termite use (7) Methadone dependence Code(s): F11.20 - OPIOID DEPENDENCE, UNCOMPLICATED (8) PAD (peripheral artery disease) Code(s): I73.9 - PERIPHERAL VASCULAR DISEASE, UNSPECIFIED (9) Paroxysmal atrial fibrillation Code(s): I48.0 - PAROXYSMAL ATRIAL FIBRILLATION Assessment/Plan DYSPNEA IMPROVING ACUTE MILD BRONCHITIS COPD AFIB PVD CHF NIDDM PLAN RATE CONTROL PER CARDIOLOGY ANTICOAGULATION STEROID TAPER CONTINUE NEBS O2 SUPPLEMENTATION OUTPATIENT PFTS DR [place]
[2018-12-22] MEDS: RIVAROXABAN 20 MG TABLET PO SCH (17:50)
[2018-12-22] MEDS: SENNOSIDES 8.6MG TABLET (FP) PO SCH (22:14)
[2018-12-23] MEDS ORDERED: METHADONE HCL 40 MG DISPERSABLE TABLET ONE (06:35)
[2018-12-23] MEDS ORDERED: METHADONE HCL 5 MG TABLET ONE (06:36)
[2018-12-23] MEDS ORDERED: METHADONE HCL 10 MG TABLET ONE (06:36)
[2018-12-23] MEDS: INSULIN SLIDING SCALE (NOVOLOG) 1 VIAL SQ SCH ×4 (06:39→21:39)
[2018-12-23] MEDS: DOCUSATE SODIUM 100 MG CAPSULE (FP) PO SCH ×2 (06:41→18:15)
[2018-12-23] MEDS: METHADONE 40 MG, METHADONE 20 MG, METHADONE 5 MG PO SCH (06:42)
[2018-12-23 06:53] LABS: HEMATOCRIT 37.9 % (35.4-49); HEMOGLOBIN 12.2 GM/dL (11.7-16.9); MCH 30.2 pg (25.7-33.7); MCHC 32.1 g/dl (32.0-35.9); MEAN CELL VOLUME 93.9 fl (80-96); MEAN PLT VOLUME 10.4 fl (7.5-11.1); PLATELET COUNT 145 K/MM3 (134-434); RBC 4.04 M/mm3 (4.00-5.60); RDW 16.6 % (11.9-15.9)
[2018-12-23 07:14] LABS: ALBUMIN 3.1 g/dl (3.4-5.0); ALK PHOS 129 U/L (45-117); ANION GAP 4 MMOL/L (8-16); BILIRUBIN,TOTAL 0.5 mg/dL (0.2-1); BLOOD UREA NITROGEN 38 mg/dL (7-18); CALCIUM 8.8 mg/dL (8.5-10.1); CHLORIDE 99 mmol/L (98-107); CO2 36 mmol/L (21-32); CREATININE 1.2 mg/dL (0.55-1.3); GLUCOSE,RANDOM 128 mg/dL (74-106); POTASSIUM 4.1 mmol/L (3.5-5.1); SGOT/AST 9 U/L (15-37); SGPT/ALT 58 U/L (13-61); SODIUM 139 mmol/L (136-145); TOT PROT 5.5 g/dl (6.4-8.2)
[2018-12-23] MEDS: ALBUTEROL SO4 0.083% IH SOL 2.5 MG/3 ML VIAL.NEB. NEB SCH (08:50)
--- NOTE | 2018-12-23 09:24 | PN ---
Progress Note, Physician History of Present Illness: Dyspnea on exertion improving, decreased chest burning, PAF with RVR now in SR. - Current Medication List Current Medications: Active Medications Acetaminophen (Tylenol -) 325 mg PO Q6H PRN PRN Reason: PAIN LEVEL 4 - 6 Last Admin: 12/19/18 08:44 Dose: 325 mg Albuterol Sulfate (Ventolin 0.083% Nebulizer Soln -) 1 amp NEB RQID [facility] Last Admin: 12/23/18 08:50 Dose: 1 amp Diltiazem HCl (Cardizem Cd -) 240 mg PO DAILY [facility] Last Admin: 12/22/18 09:52 Dose: Not Given Docusate Sodium (Colace -) 100 mg PO Q12H [facility] Last Admin: 12/23/18 06:41 Dose: 100 mg Furosemide (Lasix -) 40 mg PO DAILY [facility] Last Admin: 12/22/18 09:51 Dose: 40 mg Insulin Aspart (Novolog Vial Sliding Scale -) 1 vial SQ ACHS [facility]; Protocol Last Admin: 12/23/18 06:39 Dose: Not Given Methadone HCl 40 mg/ Methadone (HCl 20 mg/ Methadone HCl 5 mg) 65 mg PO DAILY@ 0600 [facility] Last Admin: 12/23/18 06:42 Dose: 65 mg Nitroglycerin (Nitrostat -) 0.3 mg SL ONCE PRN PRN Reason: FOR CHEST PAIN Pantoprazole Sodium (Protonix -) 40 mg PO DAILY [facility] Last Admin: 12/22/18 09:50 Dose: 40 mg Polyethylene Glycol (Miralax (For Daily Use) -) 17 gm PO BID [facility] Last Admin: 12/22/18 22:14 Dose: 17 gm Prednisone (Deltasone -) 40 mg PO DAILY [facility] Last Admin: 12/22/18 09:51 Dose: 40 mg Rivaroxaban (Xarelto -) 20 mg PO DAILY@1800 [facility] Last Admin: 12/22/18 17:50 Dose: 20 mg Senna (Senna -) 2 tab PO HS [facility] Last Admin: 12/22/18 22:14 Dose: 2 tab Sotalol HCl (Betapace -) 80 mg PO BID [facility] Last Admin: 12/22/18 22:14 Dose: 80 mg - Objective Vital Signs: Vital Signs Temperature 98.5 F 12/23/18 05:00 Pulse Rate 50 L 12/23/18 05:00 Respiratory Rate 20 04/26/19 05:00 Blood Pressure 125/70 12/23/18 05:00 O2 Sat by Pulse Oximetry (%) 98 12/22/18 20:59 Constitutional: Yes: No Distress, Calm, Thin Neck: Yes: Supple Cardiovascular: Yes: Pulse Irregular Respiratory: Yes: Regular, Diminished, On Nasal O2 Gastrointestinal: Yes: Normal Bowel Sounds, Soft Edema: No Labs: CBC, BMP 12/23/18 05:30 12/23/18 05:30 INR, PTT INR 1.39 (0.83-1.09) H 12/17/18 20:40 - ....Imaging EKG: Report Reviewed (Tele: PAF with RVR -> SR) Problem List - Problems (1) Acute on chronic diastolic CHF (congestive heart failure) Code(s): I50.33 - ACUTE ON CHRONIC DIASTOLIC (CONGESTIVE) HEART FAILURE (2) Shortness of breath Code(s): R06.02 - SHORTNESS OF BREATH (3) COPD (chronic obstructive pulmonary disease) Code(s): J44.9 - CHRONIC OBSTRUCTIVE PULMONARY DISEASE, UNSPECIFIED Qualifiers: COPD type: unspecified COPD Qualified Code(s): J44.9 - Chronic obstructive pulmonary disease, unspecified (4) Methadone dependence Code(s): F11.20 - OPIOID DEPENDENCE, UNCOMPLICATED (5) Paroxysmal atrial fibrillation Code(s): I48.0 - PAROXYSMAL ATRIAL FIBRILLATION (6) S/P aorto-bifemoral bypass surgery Code(s): Z95.828 - PRESENCE OF OTHER VASCULAR IMPLANTS AND GRAFTS Assessment/Plan 11/14/2018 Echo: Normal LV size and fxn LVEF 60-65%, normal RV size and fxn, mild LAE, RVSP 40 mmHg 12/23/2016 P-Myoview: Small size, mild inferior ischemia LVEF 71% 1. Paroxysmal atrial fibrillation/atrial flutter recurrent arrhythmia with RVR [id number] score of 4, on DOAC's/Xarelto, recurrent symptomatic arrhythmia this AM 2. CAD/CAC- coronary artery calcification/CT scan chest dated 12/23/16 abnormal MPI study demand ischemic injury angina pectoris, chest pain syndrome with recurrent arrhythmia as noted above 3. Acute on chronic class I-II NYHA classification LV diastolic failure, resolved 4. HTN 5. DM 6. Hypercholesterolemia 7. 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 COPD with exacerbation, resolving 9. Prior history of substance abuse/Opioid dependence currently on Methadone treatment PLAN: 1. Continue Xarelto 20 qd 2. Increased Cardizem CD 240 qd, hemodynamics permitting, additional IV Cardizem to assist with rate control 3. Resume Diovan 80 qd, hemodynamics permitting as renal function at baseline 4. Continue Betapace 80 bid with caution and close monitoring of QTc interval/ EKG's noted 5. Continue diuretics Lasix 40 qd 6. Oral steroids, bronchodilators, O2 as needed
[2018-12-23] MEDS: FUROSEMIDE 40 MG TABLET (FP) PO SCH (09:46)
[2018-12-23] MEDS: PANTOPRAZOLE 40 MG TABLET (FP) PO SCH (09:46)
[2018-12-23] MEDS: SOTALOL HCL 80 MG TABLET (FP) PO SCH ×2 (09:47→21:35)
[2018-12-23] MEDS: predniSONE 20 MG TABLET (UD) PO SCH (09:47)
[2018-12-23] MEDS: VALSARTAN 80 MG TABLET (UD) PO SCH (09:49)
[2018-12-23] MEDS: POLYETHYLENE GLYCOL 3350 119 GM BTL PO SCH ×2 (10:00→21:36)
[2018-12-23] MEDS ORDERED: dilTIAZem HCL 25 MG/5 ML - 5 ML VIAL IV PRN (12:35)
--- NOTE | 2018-12-23 13:23 | PN ---
Physical Exam: SUBJECTIVE: Patient seen and examined at bedside. He was rate controlled overnight, with increased cardizem dose. Patient endorses improvement of chest burning. OBJECTIVE: Vital Signs Period Temp Pulse Resp BP Sys/Chatterjee Pulse Ox Last 24 Hr 97.6 F-98.5 F 48-62 18-20 110-154/70-85 98-99 GENERAL: The patient is awake, alert, and fully oriented, in no acute distress. HEAD: Normocephalic, atraumatic. EYES: PERRL, extraocular movements intact, sclera anicteric, conjunctiva clear. ENT: Oropharynx clear without exudates, moist mucous membranes. NECK: Trachea midline, full range of motion, supple without lymphadenopathy LUNGS: Good inspiratory effort, and poor air entry bilaterally. No wheezes, or crackles auscultated. No accessory lung use. HEART: Irregular rate and rhythm, S1, S2 without murmur, rub or gallop. ABDOMEN: Soft, nontender, nondistended, normoactive bowel sounds, no guarding, no rebound, no hepatosplenomegaly, no masses. EXTREMITIES: 2+ radial, dorsalis pedis pulses bilaterally, warm, well-perfused. 1+ edema, which chronic venous stasis changes bilaterally. NEUROLOGICAL: Cranial nerves II through XII grossly intact. Normal speech PSYCH: Mood and affect appropriate upon my encounter. Laboratory Results - last 24 hr 12/22/18 12/22/18 12/23/18 16:26 22:17 05:30 WBC 17.0 H RBC 4.04 Hgb 12.2 Hct 37.9 MCV 93.9 MCH 30.2 MCHC 32.1 RDW 16.6 H Plt Count 145 MPV 10.4 Sodium Potassium Chloride Carbon Dioxide Anion Gap BUN Creatinine Creat Clearance w eGFR POC Glucometer 367 347 Random Glucose Calcium Total Bilirubin AST ALT Alkaline Phosphatase Total Protein Albumin 12/23/18 12/23/18 12/23/18 05:30 05:48 11:27 WBC RBC Hgb Hct MCV MCH MCHC RDW Plt Count MPV Sodium 139 Potassium 4.1 Chloride 99 Carbon Dioxide 36 H Anion Gap 4 L BUN 38 H Creatinine 1.2 Creat Clearance w eGFR 61.15 POC Glucometer 119 199 Random Glucose 128 H Calcium 8.8 Total Bilirubin 0.5 AST 9 L ALT 58 Alkaline Phosphatase 129 H Total Protein 5.5 L Albumin 3.1 L Active Medications Generic Name Dose Route Start Last Admin Trade Name Freq PRN Reason Stop Dose Admin Acetaminophen 325 mg 12/18/18 23:18 12/19/18 08:44 Tylenol - PO 325 mg Q6H PRN Administration PAIN LEVEL 4 - 6 Diltiazem HCl 240 mg 12/22/18 07:28 12/23/18 09:47 Cardizem Cd - PO 240 mg DAILY [facility] Administration Diltiazem HCl 10 mg 12/23/18 12:35 12/23/18 12:38 Cardizem Injection - IV 10 mg Q4H PRN Administration MAINTAIN HR <110 Docusate Sodium 100 mg 12/22/18 07:15 12/23/18 06:41 Colace - PO 100 mg Q12H [facility] Administration Furosemide 40 mg 12/18/18 10:00 12/23/18 09:46 Lasix - PO 40 mg DAILY [facility] Administration Insulin Aspart 1 vial 12/18/18 07:00 12/23/18 12:39 Novolog Vial Sliding Scale - SQ 2 units ACHS [facility] Administration Protocol Methadone HCl 40 mg/ Methadone 65 mg 12/19/18 09:30 12/23/18 06:42 HCl 20 mg/ Methadone HCl 5 mg PO 65 mg DAILY@0600 [facility] Administration Nitroglycerin 0.3 mg 12/22/18 10:00 Nitrostat - SL ONCE PRN FOR CHEST PAIN Pantoprazole Sodium 40 mg 12/18/18 10:00 12/23/18 09:46 Protonix - PO 40 mg DAILY [facility] Administration Polyethylene Glycol 17 gm 12/18/18 13:00 12/22/18 22:14 Miralax (For Daily Use) - PO 17 gm BID [facility] Administration Prednisone 40 mg 12/21/18 10:00 12/23/18 09:47 Deltasone - PO 40 mg DAILY [facility] Administration Rivaroxaban 20 mg 12/18/18 18:00 12/22/18 17:50 Xarelto - PO 20 mg DAILY@1800 [facility] Administration Senna 2 tab 12/22/18 22:00 12/22/18 22:14 Senna - PO 2 tab HS [facility] Administration Sotalol HCl 80 mg 12/18/18 10:41 12/23/18 09:47 Betapace - PO 80 mg BID [facility] Administration Valsartan 80 mg 12/23/18 10:00 12/23/18 09:49 Diovan - PO 80 mg DAILY [facility] Administration ASSESSMENT/PLAN: Patient is a 63 year old male with history of HFpEF, pulmonary hypertension, Afib on Xarelto, COPD (on home oxygen 2L), non insulin dependent diabetes mellitus, opiod dependence (on methadone) presented with complaint of shortness of breath. Acute hypoxic respiratory failure secondary to COPD exacerbation -Chest radiograph shows no acute infiltrates -Duonebs QID standing -Prednisone 40mg PO daily -Maintain oxygen saturation greater than 90% -Pulmonology recommendations appreciated. CHF, diastolic -ECHO (10/2018) LV normal size, thickness, function. EF 60-65% LA mildly dilated. Trace MR. Pulmonary artery pressure at least 40mmHg. -Lasix 40mg PO daily -Daily weights -Strict intake output -Cardiology consult (Dr. Burns) appreciated. -Patient will undergo stress testing prior to discharge. Afib -EKG on admission showed Afib with RVR. -Cardizem CD increased to 240mg PO dialy -Sotalol 80mg PO BID -Xarelto 20mg PO daily -Telemetry monitoring Troponinemia -Troponin peaked at 0.25. Likely secondary to demand ischemia. History of opiod dependence -Methadone 65mg PO daily GERD -Protonix 40mg PO daily Diabetes mellitus -HbA1c 6.5% -Insulin sliding scale ACHS -Fingerstick blood glucose monitoring ACHS Hypertension -Patient is currently on Cardizem, and Sotalol. -Follow vital signs closely. Hyperkalemia -Resolved. Follow CMP FEN -No IV fluids indicated. -Follow CMP -Diabetic diet Prophylaxis -Patient is on Xarelto 20mg PO daily for Afib -Protonix 40mg PO daily Disposition -Continue care in Telemetry floor Visit type - Emergency Visit Emergency Visit: Yes ED Registration Date: 12/18/18 Care time: The patient presented to the Emergency Department on the above date and was hospitalized for further evaluation of their emergent condition. - New Patient This patient is new to me today: No - Critical Care Critical Care patient: No - Discharge Referral Referred to [facility] Med [facility].C[facility] No
--- NOTE | 2018-12-23 13:41 | PN ---
Teaching Attending Note Name of Resident: Montrell Zapien ATTENDING PHYSICIAN STATEMENT I saw and evaluated the patient. I reviewed the resident's note and discussed the case with the resident. I agree with the resident's findings and plan as documented. SUBJECTIVE: Chest pain/burning again on ambulation this am, HR better controlled. OBJECTIVE: Afebrile, Hemodynamically Stable. HR better controlled. Last Vital Signs Temp Pulse Resp BP Pulse Ox 97.6 F 59 L 18 154/85 99 12/23/18 09:00 12/23/18 09:00 12/23/18 09:00 12/23/18 09:00 12/23/18 10:00 Heart - S1, S2, irregular Lungs - decreased air entry, no wheeze. Abdomen - Soft, non-tender. Bowel Sounds normal. Extremities - mild edema, no calf tenderness, excoriation hastings, venous stasis Laboratory Results - last 24 hr 12/22/18 12/22/18 12/23/18 16:26 22:17 05:30 WBC 17.0 H RBC 4.04 Hgb 12.2 Hct 37.9 MCV 93.9 MCH 30.2 MCHC 32.1 RDW 16.6 H Plt Count 145 MPV 10.4 Sodium Potassium Chloride Carbon Dioxide Anion Gap BUN Creatinine Creat Clearance w eGFR POC Glucometer 367 347 Random Glucose Calcium Total Bilirubin AST ALT Alkaline Phosphatase Total Protein Albumin 12/23/18 12/23/18 12/23/18 05:30 05:48 11:27 WBC RBC Hgb Hct MCV MCH MCHC RDW Plt Count MPV Sodium 139 Potassium 4.1 Chloride 99 Carbon Dioxide 36 H Anion Gap 4 L BUN 38 H Creatinine 1.2 Creat Clearance w eGFR 61.15 POC Glucometer 119 199 Random Glucose 128 H Calcium 8.8 Total Bilirubin 0.5 AST 9 L ALT 58 Alkaline Phosphatase 129 H Total Protein 5.5 L Albumin 3.1 L Current Medications Generic Name Dose Route Start Last Admin Trade Name Freq PRN Reason Stop Dose Admin Acetaminophen 325 mg 12/18/18 23:18 12/19/18 08:44 Tylenol - PO 325 mg Q6H PRN Administration PAIN LEVEL 4 - 6 Diltiazem HCl 240 mg 12/22/18 07:28 12/23/18 09:47 Cardizem Cd - PO 240 mg DAILY [facility] Administration Diltiazem HCl 10 mg 12/23/18 12:35 12/23/18 12:38 Cardizem Injection - IV 10 mg Q4H PRN Administration MAINTAIN HR <110 Docusate Sodium 100 mg 12/22/18 07:15 12/23/18 06:41 Colace - PO 100 mg Q12H [facility] Administration Furosemide 40 mg 12/18/18 10:00 12/23/18 09:46 Lasix - PO 40 mg DAILY [facility] Administration Insulin Aspart 1 vial 12/18/18 07:00 12/23/18 12:39 Novolog Vial Sliding Scale - SQ 2 units ACHS [facility] Administration Protocol Methadone HCl 40 mg/ Methadone 65 mg 12/19/18 09:30 12/23/18 06:42 HCl 20 mg/ Methadone HCl 5 mg PO 65 mg DAILY@0600 [facility] Administration Nitroglycerin 0.3 mg 12/22/18 10:00 Nitrostat - SL ONCE PRN FOR CHEST PAIN Pantoprazole Sodium 40 mg 12/18/18 10:00 12/23/18 09:46 Protonix - PO 40 mg DAILY [facility] Administration Polyethylene Glycol 17 gm 12/18/18 13:00 12/22/18 22:14 Miralax (For Daily Use) - PO 17 gm BID [facility] Administration Prednisone 40 mg 12/21/18 10:00 12/23/18 09:47 Deltasone - PO 40 mg DAILY [facility] Administration Rivaroxaban 20 mg 12/18/18 18:00 12/22/18 17:50 Xarelto - PO 20 mg DAILY@1800 [facility] Administration Senna 2 tab 12/22/18 22:00 12/22/18 22:14 Senna - PO 2 tab HS [facility] Administration Sotalol HCl 80 mg 12/18/18 10:41 12/23/18 09:47 Betapace - PO 80 mg BID [facility] Administration Valsartan 80 mg 12/23/18 10:00 12/23/18 09:49 Diovan - PO 80 mg DAILY [facility] Administration ASSESSMENT AND PLAN: 63 year old Male with history of chronic diastolic heart failure, HTN, Paroxysmal Atrial Fibrillation on Xarelto, chronic hypoxic respiratory failure sec to COPD (on 2L O2), Pulmonary HTN, DM 2, PAD with distal aortic 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 1. Paroxysmal Atrial Fibrillation with RVR Rate better controlled on Sotalol and increased dose of Cardizem to 240mg. Continue Sotalol, Cardizem and Xarelto. Cardiology following. Further medication titration depending on rhythm/rate response, especially on ambulation. 2. Acute on Chronic Hypoxic Respiratory Failure secondary to Acute Exacerbation of COPD - resolving CXR - no infiltrate Continue DuoNeb, Prednisone taper. Pulmonary following. Leukocytosis sec to Steroids. PFTs as out-patient. 3. CAD with Troponin egression secondary to likely demand ischemia - unclear whether current episodes of chest pain/burning is ischemia-related - Cardiology following - further testing/investigations as per Cardio. NM Stress 12/14 - Mild inferior ischemia. Continue BB, TIFFANIE-I. Unable to DC due to exertional chest pain with positive prior stress test - communicated with Cardiology. Nitro PRN. 4. Chronic diastolic heart failure - Stable. Continue Lasix. 5. DM 2 - Continue Novolog sliding scale. Metformin held. 6. Opioid dependence/Hx substance abuse - Continue methadone maintenance 7. Pulmonary HTN - on Home O2. 8. GERD - continue PPI. 9. Hyperkalemia - resolved s/p Kayexalate. DVT Px - on Xarelto
[2018-12-23] MEDS ORDERED: PT OWN MED DRAWER 7, Y5N ONE ×2 (15:34→15:37)
--- NOTE | 2018-12-23 16:11 | PN ---
Progress Note, Physician History of Present Illness: PULMONARY ALERT,OOB-CHAIR,LESS DYSPNEIC,HR IMPROVING - Current Medication List Current Medications: Active Medications Acetaminophen (Tylenol -) 325 mg PO Q6H PRN PRN Reason: PAIN LEVEL 4 - 6 Last Admin: 12/19/18 08:44 Dose: 325 mg Diltiazem HCl (Cardizem Cd -) 240 mg PO DAILY [facility] Last Admin: 12/23/18 09:47 Dose: 240 mg Diltiazem HCl (Cardizem Injection -) 10 mg IV Q4H PRN PRN Reason: MAINTAIN HR <110 Last Admin: 12/23/18 12:38 Dose: 10 mg Docusate Sodium (Colace -) 100 mg PO Q12H [facility] Last Admin: 12/23/18 06:41 Dose: 100 mg Furosemide (Lasix -) 40 mg PO DAILY [facility] Last Admin: 12/23/18 09:46 Dose: 40 mg Insulin Aspart (Novolog Vial Sliding Scale -) 1 vial SQ ACHS [facility]; Protocol Last Admin: 12/23/18 12:39 Dose: 2 units Methadone HCl 40 mg/ Methadone (HCl 20 mg/ Methadone HCl 5 mg) 65 mg PO DAILY@ 0600 [facility] Last Admin: 12/23/18 06:42 Dose: 65 mg Nitroglycerin (Nitrostat -) 0.3 mg SL ONCE PRN PRN Reason: FOR CHEST PAIN Pantoprazole Sodium (Protonix -) 40 mg PO DAILY [facility] Last Admin: 12/23/18 09:46 Dose: 40 mg Polyethylene Glycol (Miralax (For Daily Use) -) 17 gm PO BID [facility] Last Admin: 12/23/18 10:00 Dose: 17 gm Prednisone (Deltasone -) 40 mg PO DAILY [facility] Last Admin: 12/23/18 09:47 Dose: 40 mg Rivaroxaban (Xarelto -) 20 mg PO DAILY@1800 [facility] Last Admin: 12/22/18 17:50 Dose: 20 mg Senna (Senna -) 2 tab PO HS [facility] Last Admin: 12/22/18 22:14 Dose: 2 tab Sotalol HCl (Betapace -) 80 mg PO BID [facility] Last Admin: 12/23/18 09:47 Dose: 80 mg Valsartan (Diovan -) 80 mg PO DAILY [facility] Last Admin: 12/23/18 09:49 Dose: 80 mg - Objective Vital Signs: Vital Signs Temperature 98.7 F 12/23/18 13:40 Pulse Rate 59 L 12/23/18 13:40 Respiratory Rate 18 12/23/18 13:40 Blood Pressure 132/78 12/23/18 13:40 O2 Sat by Pulse Oximetry (%) 99 12/23/18 10:00 Constitutional: Yes: Well Nourished, Calm Eyes: Yes: WNL HENT: Yes: WNL Neck: Yes: WNL Cardiovascular: Yes: Pulse Irregular, S1, S2 Respiratory: Yes: Diminished Gastrointestinal: Yes: Normal Bowel Sounds, Soft Extremities: Yes: WNL Edema: No Labs: CBC, BMP 12/23/18 05:30 12/23/18 05:30 INR, PTT INR 1.39 (0.83-1.09) H 12/17/18 20:40 Assessment/Plan Problem List - Problems (1) Atrial fibrillation with rapid ventricular response Code(s): I48.91 - UNSPECIFIED ATRIAL FIBRILLATION (2) Acute on chronic diastolic CHF (congestive heart failure) Code(s): I50.33 - ACUTE ON CHRONIC DIASTOLIC (CONGESTIVE) HEART FAILURE (3) COPD exacerbation Code(s): J44.1 - CHRONIC OBSTRUCTIVE PULMONARY DISEASE W (ACUTE) EXACERBATION (4) Shortness of breath Code(s): R06.02 - SHORTNESS OF BREATH (5) CHF (congestive heart failure) Code(s): I50.9 - HEART FAILURE, UNSPECIFIED (6) Diabetes type 2, controlled Code(s): E11.9 - TYPE 2 DIABETES MELLITUS WITHOUT COMPLICATIONS Qualifiers: Diabetes mellitus inventory control assistant insulin use: without inventory control assistant use (7) Methadone dependence Code(s): F11.20 - OPIOID DEPENDENCE, UNCOMPLICATED (8) PAD (peripheral artery disease) Code(s): I73.9 - PERIPHERAL VASCULAR DISEASE, UNSPECIFIED (9) Paroxysmal atrial fibrillation Code(s): I48.0 - PAROXYSMAL ATRIAL FIBRILLATION Assessment/Plan DYSPNEA IMPROVING ACUTEBRONCHITIS COPD AFIB PVD CHF NIDDM PLAN RATE CONTROL PER CARDIOLOGY ANTICOAGULATION PREDNISONE CONTINUE NEBS O2 SUPPLEMENTATION OUTPATIENT PFTS DR PARSONS
[2018-12-23] MEDS: RIVAROXABAN 20 MG TABLET PO SCH (18:14)
[2018-12-23] MEDS: SENNOSIDES 8.6MG TABLET (FP) PO SCH (21:35)
[2018-12-24] MEDS ORDERED: METHADONE HCL 40 MG DISPERSABLE TABLET ONE (06:20)
[2018-12-24] MEDS ORDERED: METHADONE HCL 10 MG TABLET ONE (06:21)
[2018-12-24] MEDS ORDERED: METHADONE HCL 5 MG TABLET ONE (06:21)
[2018-12-24] MEDS: INSULIN SLIDING SCALE (NOVOLOG) 1 VIAL SQ SCH ×2 (06:25→11:40)
[2018-12-24] MEDS: METHADONE 40 MG, METHADONE 20 MG, METHADONE 5 MG PO SCH (06:27)
[2018-12-24] MEDS: SOTALOL HCL 80 MG TABLET (FP) PO SCH (06:27)
[2018-12-24] MEDS: DOCUSATE SODIUM 100 MG CAPSULE (FP) PO SCH (06:27)
--- NOTE | 2018-12-24 07:29 | PN ---
Physical Exam: SUBJECTIVE: Patient seen and examined at bedside. Telemetry monitoring shows that he is currently rate controlled, in sinus rhythm. Patient endorses improvement of his burning chest pain. OBJECTIVE: Vital Signs Period Temp Pulse Resp BP Sys/Chatterjee Pulse Ox Last 24 Hr 97.6 F-98.7 F 50-71 18-19 120-154/58-85 99-99 GENERAL: The patient is awake, alert, and fully oriented, in no acute distress. HEAD: Normocephalic, atraumatic. EYES: PERRL, extraocular movements intact, sclera anicteric, conjunctiva clear. ENT: Oropharynx clear without exudates, moist mucous membranes. NECK: Trachea midline, full range of motion, supple without lymphadenopathy LUNGS: Good inspiratory effort, and poor air entry bilaterally. No wheezes, or crackles auscultated. No accessory lung use. HEART: Regular rate and rhythm, S1, S2 without murmur, rub or gallop. ABDOMEN: Soft, nontender, nondistended, normoactive bowel sounds, no guarding, no rebound, no hepatosplenomegaly, no masses. EXTREMITIES: 2+ radial, dorsalis pedis pulses bilaterally, warm, well-perfused. 1+ edema, which chronic venous stasis changes bilaterally. NEUROLOGICAL: Cranial nerves II through XII grossly intact. Normal speech PSYCH: Mood and affect appropriate upon my encounter. Laboratory Results - last 24 hr 12/23/18 12/23/18 12/23/18 11:27 17:06 21:38 POC Glucometer 199 297 255 12/24/18 06:12 POC Glucometer 118 Active Medications Generic Name Dose Route Start Last Admin Trade Name Pierreq PRN Reason Stop Dose Admin Acetaminophen 325 mg 12/18/18 23:18 12/19/18 08:44 Tylenol - PO 325 mg Q6H PRN Administration PAIN LEVEL 4 - 6 Diltiazem HCl 240 mg 12/22/18 07:28 12/23/18 09:47 Cardizem Cd - PO 240 mg DAILY [facility] Administration Diltiazem HCl 10 mg 12/23/18 12:35 12/23/18 12:38 Cardizem Injection - IV 10 mg Q4H PRN Administration MAINTAIN HR <110 Docusate Sodium 100 mg 12/22/18 07:15 12/24/18 06:27 Colace - PO 100 mg Q12H [facility] Administration Furosemide 40 mg 12/18/18 10:00 12/23/18 09:46 Lasix - PO 40 mg DAILY [facility] Administration Insulin Aspart 1 vial 12/18/18 07:00 12/24/18 06:25 Novolog Vial Sliding Scale - SQ Not Given ACHS [facility] Protocol Methadone HCl 40 mg/ Methadone 65 mg 12/19/18 09:30 12/24/18 06:27 HCl 20 mg/ Methadone HCl 5 mg PO 65 mg DAILY@0600 [facility] Administration Nitroglycerin 0.3 mg 12/22/18 10:00 Nitrostat - SL ONCE PRN FOR CHEST PAIN Pantoprazole Sodium 40 mg 12/18/18 10:00 12/23/18 09:46 Protonix - PO 40 mg DAILY [facility] Administration Polyethylene Glycol 17 gm 12/18/18 13:00 12/23/18 21:36 Miralax (For Daily Use) - PO 17 gm BID [facility] Administration Prednisone 40 mg 12/21/18 10:00 12/23/18 09:47 Deltasone - PO 40 mg DAILY [facility] Administration Rivaroxaban 20 mg 12/18/18 18:00 12/23/18 18:14 Xarelto - PO 20 mg DAILY@1800 [facility] Administration Senna 2 tab 12/22/18 22:00 12/23/18 21:35 Senna - PO 2 tab HS [facility] Administration Sotalol HCl 80 mg 12/23/18 22:00 12/24/18 06:27 Betapace - PO 80 mg TID [facility] Administration Valsartan 80 mg 12/23/18 10:00 12/23/18 09:49 Diovan - PO 80 mg DAILY [facility] Administration ASSESSMENT/PLAN: Patient is a 63 year old male with history of HFpEF, pulmonary hypertension, Afib on Xarelto, COPD (on home oxygen 2L), non insulin dependent diabetes mellitus, opiod dependence (on methadone) presented with complaint of shortness of breath. Acute hypoxic respiratory failure secondary to COPD exacerbation -Chest radiograph shows no acute infiltrates -Duonebs QID standing -Prednisone 40mg PO daily -Maintain oxygen saturation greater than 90% -Pulmonology recommendations appreciated. CHF, diastolic -ECHO (10/2018) LV normal size, thickness, function. EF 60-65% LA mildly dilated. Trace MR. Pulmonary artery pressure at least 40mmHg. -Lasix 40mg PO daily -Valsartan 80mg PO daily -Daily weights -Strict intake output -Cardiology consult (Dr. Burns) appreciated. -Patient will undergo stress testing prior to discharge. Afib -EKG on admission showed Afib with RVR. -Cardizem CD increased to 240mg PO dialy -Sotalol 80mg PO BID -Xarelto 20mg PO daily -Telemetry monitoring Troponinemia -Troponin peaked at 0.25. Likely secondary to demand ischemia. -Patient will undergo stress testing prior to discharge. History of opiod dependence -Methadone 65mg PO daily GERD -Protonix 40mg PO daily Diabetes mellitus -HbA1c 6.5% -Insulin sliding scale ACHS -Fingerstick blood glucose monitoring ACHS Hypertension -Patient is currently on Cardizem, and Sotalol. -Follow vital signs closely. Hyperkalemia -Resolved. Follow CMP FEN -No IV fluids indicated. -Follow CMP -Diabetic diet Prophylaxis -Patient is on Xarelto 20mg PO daily for Afib -Protonix 40mg PO daily Disposition -Continue care in Telemetry floor
[2018-12-24 08:01] LABS: HEMOGLOBIN 13.4 GM/dL (11.7-16.9); MCH 30.4 pg (25.7-33.7); MCHC 31.9 g/dl (32.0-35.9); MEAN CELL VOLUME 95.2 fl (80-96); MEAN PLT VOLUME 11.1 fl (7.5-11.1); PLATELET COUNT 155 K/MM3 (134-434); RBC 4.41 M/mm3 (4.00-5.60); RDW 16.5 % (11.9-15.9); WHITE BLOOD COUNT 22.1 K/mm3 (4.0-10.0)
[2018-12-24 08:19] LABS: ALBUMIN 3.2 g/dl (3.4-5.0); ALK PHOS 130 U/L (45-117); ANION GAP 6 MMOL/L (8-16); BILIRUBIN,TOTAL 0.6 mg/dL (0.2-1); BLOOD UREA NITROGEN 37 mg/dL (7-18); CALCIUM 8.9 mg/dL (8.5-10.1); CHLORIDE 97 mmol/L (98-107); CO2 36 mmol/L (21-32); CREATININE 1.1 mg/dL (0.55-1.3); GLUCOSE,RANDOM 127 mg/dL (74-106); POTASSIUM 4.5 mmol/L (3.5-5.1); SGOT/AST 8 U/L (15-37); SGPT/ALT 51 U/L (13-61); SODIUM 139 mmol/L (136-145)
[2018-12-24] MEDS: VALSARTAN 80 MG TABLET (UD) PO SCH (10:16)
[2018-12-24] MEDS: POLYETHYLENE GLYCOL 3350 119 GM BTL PO SCH (10:16)
[2018-12-24] MEDS: FUROSEMIDE 40 MG TABLET (FP) PO SCH (10:16)
[2018-12-24] MEDS: predniSONE 20 MG TABLET (UD) PO SCH (10:16)
[2018-12-24] MEDS: PANTOPRAZOLE 40 MG TABLET (FP) PO SCH (10:16)
--- NOTE | 2018-12-24 11:16 | PN ---
Teaching Attending Note Name of Resident: Montrell Zapien ATTENDING PHYSICIAN STATEMENT I saw and evaluated the patient. I reviewed the resident's note and discussed the case with the resident. I agree with the resident's findings and plan as documented. SUBJECTIVE: No recurrence of chest pain/burning on ambulation. HR better controlled. No palpitations/SOB. OBJECTIVE: Afebrile, Hemodynamically Stable. HR better controlled. Last Vital Signs Temp Pulse Resp BP Pulse Ox 98 F 51 L 18 133/64 99 12/24/18 06:00 12/24/18 06:00 12/24/18 06:00 12/24/18 06:00 12/23/18 22:00 Heart - S1, S2, irregular Lungs - decreased air entry, no wheeze. Abdomen - Soft, non-tender. Bowel Sounds normal. Extremities - mild edema, no calf tenderness, excoriation hastings, venous stasis Laboratory Results - last 24 hr 12/23/18 12/23/18 12/23/18 11:27 17:06 21:38 WBC RBC Hgb Hct MCV MCH MCHC RDW Plt Count MPV Sodium Potassium Chloride Carbon Dioxide Anion Gap BUN Creatinine Creat Clearance w eGFR POC Glucometer 199 297 255 Random Glucose Calcium Total Bilirubin AST ALT Alkaline Phosphatase Total Protein Albumin 12/24/18 12/24/18 12/24/18 06:12 06:20 06:20 WBC 22.1 H RBC 4.41 Hgb 13.4 Hct 42.0 MCV 95.2 MCH 30.4 MCHC 31.9 L RDW 16.5 H Plt Count 155 MPV 11.1 Sodium 139 Potassium 4.5 Chloride 97 L Carbon Dioxide 36 H Anion Gap 6 L BUN 37 H Creatinine 1.1 Creat Clearance w eGFR 67.61 POC Glucometer 118 Random Glucose 127 H Calcium 8.9 Total Bilirubin 0.6 AST 8 L ALT 51 Alkaline Phosphatase 130 H Total Protein 6.0 L Albumin 3.2 L Current Medications Generic Name Dose Route Start Last Admin Trade Name Freq PRN Reason Stop Dose Admin Acetaminophen 325 mg 12/18/18 23:18 12/19/18 08:44 Tylenol - PO 325 mg Q6H PRN Administration PAIN LEVEL 4 - 6 Diltiazem HCl 240 mg 12/22/18 07:28 12/24/18 10:16 Cardizem Cd - PO 240 mg DAILY DOMINIC Administration Diltiazem HCl 10 mg 12/23/18 12:35 12/23/18 12:38 Cardizem Injection - IV 10 mg Q4H PRN Administration MAINTAIN HR <110 Docusate Sodium 100 mg 12/22/18 07:15 12/24/18 06:27 Colace - PO 100 mg Q12H DOMINIC Administration Furosemide 40 mg 12/18/18 10:00 12/24/18 10:16 Lasix - PO 40 mg DAILY DOMINIC Administration Insulin Aspart 1 vial 12/18/18 07:00 12/24/18 06:25 Novolog Vial Sliding Scale - SQ Not Given ACHS [facility] Protocol Methadone HCl 40 mg/ Methadone 65 mg 12/19/18 09:30 12/24/18 06:27 HCl 20 mg/ Methadone HCl 5 mg PO 65 mg DAILY@0600 DOMINIC Administration Nitroglycerin 0.3 mg 12/22/18 10:00 Nitrostat - SL ONCE PRN FOR CHEST PAIN Pantoprazole Sodium 40 mg 12/18/18 10:00 12/24/18 10:16 Protonix - PO 40 mg DAILY DOMINIC Administration Polyethylene Glycol 17 gm 12/18/18 13:00 12/24/18 10:16 Miralax (For Daily Use) - PO 17 gm BID DOMINIC Administration Prednisone 40 mg 12/21/18 10:00 12/24/18 10:16 Deltasone - PO 40 mg DAILY DOMINIC Administration Rivaroxaban 20 mg 12/18/18 18:00 12/23/18 18:14 Xarelto - PO 20 mg DAILY@1800 DOMINIC Administration Senna 2 tab 12/22/18 22:00 12/23/18 21:35 Senna - PO 2 tab HS DOMINIC Administration Sotalol HCl 80 mg 12/23/18 22:00 12/24/18 06:27 Betapace - PO 80 mg TID DOMINIC Administration Valsartan 80 mg 12/23/18 10:00 12/24/18 10:16 Diovan - PO 80 mg DAILY DOMINIC Administration ASSESSMENT AND PLAN: 63 year old Male with history of chronic diastolic heart failure, HTN, Paroxysmal Atrial Fibrillation on Xarelto, chronic hypoxic respiratory failure sec to COPD (on 2L O2), Pulmonary HTN, DM 2, PAD with distal aortic 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 1. Paroxysmal Atrial Fibrillation with RVR Rate well controlled on Sotalol and increased dose of Cardizem to 240mg. Continue Sotalol, Cardizem and Xarelto. Cardiology follow up on discharge. 2. Acute on Chronic Hypoxic Respiratory Failure secondary to Acute Exacerbation of COPD - resolved CXR - no infiltrate Continue DuoNeb, Prednisone taper. Pulmonary following. Leukocytosis sec to Steroids. PFTs as out-patient with Pulm follow up. 3. CAD with Troponin egression secondary to likely demand ischemia - unclear whether current episodes of chest pain/burning is ischemia-related - Cardiology evaluated - further testing/investigations as per Cardio. NM Stress 12/14 - Mild inferior ischemia. Continue BB, TIFFANIE-I. Patient declines further stress testing or transfer for cardiac cath - he wants to follow with cardio as out-patient. Will discharge with Nitro PRN and Cardio follow up. 4. Chronic diastolic heart failure - Stable. Continue Lasix. 5. DM 2 - resume home regimen 6. Opioid dependence/Hx substance abuse - Continue methadone maintenance 7. Pulmonary HTN - on Home O2. 8. GERD - continue PPI. 9. Hyperkalemia - resolved s/p Kayexalate. DVT Px - on Xarelto Medically Stable for discharge with Cardio and Pulm out-patient follow up.
--- NOTE | 2018-12-24 11:40 | DS ---
Physical Exam: SUBJECTIVE: Patient seen and examined at bedside. Telemetry monitoring shows that he is currently rate controlled, in sinus rhythm. Patient endorses improvement of his burning chest pain. He denies subjective fevers, chills, shortness of breath, chest pain, palpitations, abdominal pain, nausea, vomiting. OBJECTIVE: Vital Signs Period Temp Pulse Resp BP Sys/Chatterjee Pulse Ox Last 24 Hr 97.6 F-98.7 F 50-71 18-19 120-133/58-78 99 PHYSICAL EXAM GENERAL: The patient is awake, alert, and fully oriented, in no acute distress. HEAD: Normocephalic, atraumatic. EYES: PERRL, extraocular movements intact, sclera anicteric, conjunctiva clear. ENT: Oropharynx clear without exudates, moist mucous membranes. NECK: Trachea midline, full range of motion, supple without lymphadenopathy LUNGS: Good inspiratory effort, and poor air entry bilaterally. No wheezes, or crackles auscultated. No accessory lung use. HEART: Regular rate and rhythm, S1, S2 without murmur, rub or gallop. ABDOMEN: Soft, nontender, nondistended, normoactive bowel sounds, no guarding, no rebound, no hepatosplenomegaly, no masses. EXTREMITIES: 2+ radial, dorsalis pedis pulses bilaterally, warm, well-perfused. 1+ edema, which chronic venous stasis changes bilaterally. NEUROLOGICAL: Cranial nerves II through XII grossly intact. Normal speech PSYCH: Mood and affect appropriate upon my encounter. LABS Laboratory Results - last 24 hr 12/23/18 12/23/18 12/24/18 17:06 21:38 06:12 WBC RBC Hgb Hct MCV MCH MCHC RDW Plt Count MPV Sodium Potassium Chloride Carbon Dioxide Anion Gap BUN Creatinine Creat Clearance w eGFR POC Glucometer 297 255 118 Random Glucose Calcium Total Bilirubin AST ALT Alkaline Phosphatase Total Protein Albumin 12/24/18 12/24/18 12/24/18 06:20 06:20 11:35 WBC 22.1 H RBC 4.41 Hgb 13.4 Hct 42.0 MCV 95.2 MCH 30.4 MCHC 31.9 L RDW 16.5 H Plt Count 155 MPV 11.1 Sodium 139 Potassium 4.5 Chloride 97 L Carbon Dioxide 36 H Anion Gap 6 L BUN 37 H Creatinine 1.1 Creat Clearance w eGFR 67.61 POC Glucometer 127 Random Glucose 127 H Calcium 8.9 Total Bilirubin 0.6 AST 8 L ALT 51 Alkaline Phosphatase 130 H Total Protein 6.0 L Albumin 3.2 L HOSPITAL COURSE: Date of Admission:12/18/18 Date of Discharge: 12/24/18 Patient is a 63 year old male with history of HFpEF, pulmonary hypertension, Afib on Xarelto, COPD (on home oxygen 2L), non insulin dependent diabetes mellitus, opiod dependence (on methadone) presented with complaint of shortness of breath with associated burning chest pain. Troponin peaked at 0.25. Likely secondary to demand ischemia. EKG on admission showed Afib with RVR. Patient was evaluated by cardiology; Afib was rate controlled with Cardizem, and Sotalol (Metoprolol from prior admission was discontinued). Xarelto continued for anticoagulation. Patient refused to remain for cardiac stress test, or any further workup of chest pain. Patient was counselled to follow up with sales trader as outpatient for further workup. After discussion with cardiology patient discharged home with Cardizem, Sotalol, Valsartan, Prednisone taper, and Nitroglycerin. To follow up with primary care physician (referral to [facility] provided), sales trader, and city planner. Minutes to complete discharge: 35 Discharge Summary Reason For Visit: ATRIAL FIBRILLATION WITH RAPID VENTRICULAR RESPONS Current Active Problems Atrial fibrillation with rapid ventricular response (Acute) Condition: Stable - Instructions Diet, Activity, Other Instructions: You were admitted to the hospital with chest pain, and shortness of breath. Your heart rate was irregular and elevated (Afib). You were evaluated by the sales trader; and your mediations were changed to decrease your heart rate appropriately. You are being discharged home. We have made some changes to your medications: We have stopped your Metoprolol. DO NOT take this medication any more. Begin taking Sotalol 80mg twice a day (every 12 hours). Begin taking Diltiazem CD 240mg every day. Begin taking Valsartan 80mg daily We will give you Nitroglycerin for chest pain. Take one tablet under the tongue if you experience burning chest pain. Do not take more than three tablets 5 minutes apart. Immediately proceed to the nearest Emergency Department if you experience any chest pain/ burning. Continue your home medications as directed. We are putting you on an oral steroid taper: Start on 12/24/18 Take prednisone 40mg by mouth daily for 2 days then prednisone 30mg by mouth daily for 4 days then prednisone 20mg by mouth daily for 4 days then prednisone 10mg by mouth daily for 4 days Follow up with your primary care physician within two -three days after discharge. A referral to [facility] [place] [facility] has been provided. Follow up with your Manager Java (Dr. Burns) within two -three days after discharge for any further cardiac testing. A referral has been provided. Follow up with your Air Export Operations Agent (Dr. Coleman) within one week of discharge. A referral has been provided. Return to the nearest Emergency Department if you experience any worsening symptoms, subjective fevers, chills, shortness of breath, chest pain, palpitations, abdominal pain, nausea, vomiting, weakness, lightheadedness, dizziness, falls, loss of consciousness, trauma. Referrals: [facility] [place] [facility] [Provider Group] Hany Coleman MD [Staff Physician] - 1 Week Lei Burns MD [Staff Physician] - 12/26/18 Disposition: HOME - Home Medications Comprehensive Discharge Medication List: Ambulatory Orders Methadone [Dolophine -] 65 mg PO DAILY 09/25/17 Rivaroxaban [Xarelto -] 20 mg PO DAILY 09/25/17 metFORMIN HCL [Glucophage -] 500 mg PO BID 09/25/17 Albuterol Sulfate Inhaler - [Ventolin HFA Inhaler -] 1 - 2 inh PO QID PRN #1 inhaler 01/26/18 Furosemide [Lasix -] 40 mg PO DAILY #30 tablet 11/14/18 Budesonide/Formeterol Fumarate [SYMBICORT 160/4.5mcg -] 2 puff IH BID #7 inhaler 12/10/18 Pantoprazole Sodium [Protonix -] 40 mg PO DAILY #30 tablet.ec 12/10/18 Diltiazem Cd [Cardizem Cd -] 240 mg PO DAILY 30 Days #30 cap.cd.24h 12/24/18 Nitroglycerin 0.4 mg SL PRN 7 Days #7 tab.subl 12/24/18 Prednisone See Taper PO ASDIR 20 Days #32 tablet 12/24/18 Sotalol HCl [Betapace -] 80 mg PO BID 30 Days #60 tablet 12/24/18 Valsartan [Diovan] 80 mg PO DAILY 30 Days #30 tablet 12/24/18 This patient is new to me today: No Emergency Visit: Yes ED Registration Date: 12/18/18 Care time: The patient presented to the Emergency Department on the above date and was hospitalized for further evaluation of their emergent condition. Critical Care patient: No - Discharge Referral Referred to [facility] Med P.C.: No
--- NOTE | 2018-12-24 12:04 | PN ---
Progress Note, Physician History of Present Illness: Dyspnea on exertion improving, resolved chest burning, PAF with RVR now in SR. - Current Medication List Current Medications: Active Medications Acetaminophen (Tylenol -) 325 mg PO Q6H PRN PRN Reason: PAIN LEVEL 4 - 6 Last Admin: 12/19/18 08:44 Dose: 325 mg Diltiazem HCl (Cardizem Cd -) 240 mg PO DAILY [facility] Last Admin: 12/24/18 10:16 Dose: 240 mg Diltiazem HCl (Cardizem Injection -) 10 mg IV Q4H PRN PRN Reason: MAINTAIN HR <110 Last Admin: 12/23/18 12:38 Dose: 10 mg Docusate Sodium (Colace -) 100 mg PO Q12H [facility] Last Admin: 12/24/18 06:27 Dose: 100 mg Furosemide (Lasix -) 40 mg PO DAILY [facility] Last Admin: 12/24/18 10:16 Dose: 40 mg Insulin Aspart (Novolog Vial Sliding Scale -) 1 vial SQ ACHS [facility]; Protocol Last Admin: 12/24/18 06:25 Dose: Not Given Methadone HCl 40 mg/ Methadone (HCl 20 mg/ Methadone HCl 5 mg) 65 mg PO DAILY@ 0600 [facility] Last Admin: 12/24/18 06:27 Dose: 65 mg Nitroglycerin (Nitrostat -) 0.3 mg SL ONCE PRN PRN Reason: FOR CHEST PAIN Pantoprazole Sodium (Protonix -) 40 mg PO DAILY [facility] Last Admin: 12/24/18 10:16 Dose: 40 mg Polyethylene Glycol (Miralax (For Daily Use) -) 17 gm PO BID [facility] Last Admin: 12/24/18 10:16 Dose: 17 gm Prednisone (Deltasone -) 40 mg PO DAILY [facility] Last Admin: 12/24/18 10:16 Dose: 40 mg Rivaroxaban (Xarelto -) 20 mg PO DAILY@1800 [facility] Last Admin: 12/23/18 18:14 Dose: 20 mg Senna (Senna -) 2 tab PO HS [facility] Last Admin: 12/23/18 21:35 Dose: 2 tab Sotalol HCl (Betapace -) 80 mg PO TID [facility] Last Admin: 12/24/18 06:27 Dose: 80 mg Valsartan (Diovan -) 80 mg PO DAILY [facility] Last Admin: 04/27/19 10:16 Dose: 80 mg - Objective Vital Signs: Vital Signs Temperature 98 F 12/24/18 06:00 Pulse Rate 51 L 12/24/18 06:00 Respiratory Rate 18 12/24/18 06:00 Blood Pressure 133/64 12/24/18 06:00 O2 Sat by Pulse Oximetry (%) 99 12/23/18 22:00 Constitutional: Yes: No Distress, Calm, Thin Neck: Yes: Supple Cardiovascular: Yes: Bradycardia Respiratory: Yes: Regular, CTA Bilaterally, On Nasal O2 Gastrointestinal: Yes: Normal Bowel Sounds, Soft Edema: No Labs: CBC, BMP 12/24/18 06:20 12/24/18 06:20 INR, PTT INR 1.39 (0.83-1.09) H 12/17/18 20:40 - ....Imaging EKG: Report Reviewed (Tele: SB 40s) Problem List - Problems (1) Acute on chronic diastolic CHF (congestive heart failure) Code(s): I50.33 - ACUTE ON CHRONIC DIASTOLIC (CONGESTIVE) HEART FAILURE (2) Shortness of breath Code(s): R06.02 - SHORTNESS OF BREATH (3) COPD (chronic obstructive pulmonary disease) Code(s): J44.9 - CHRONIC OBSTRUCTIVE PULMONARY DISEASE, UNSPECIFIED Qualifiers: COPD type: unspecified COPD Qualified Code(s): J44.9 - Chronic obstructive pulmonary disease, unspecified (4) Methadone dependence Code(s): F11.20 - OPIOID DEPENDENCE, UNCOMPLICATED (5) Paroxysmal atrial fibrillation Code(s): I48.0 - PAROXYSMAL ATRIAL FIBRILLATION (6) S/P aorto-bifemoral bypass surgery Code(s): Z95.828 - PRESENCE OF OTHER VASCULAR IMPLANTS AND GRAFTS Assessment/Plan 11/14/2018 Echo: Normal LV size and fxn LVEF 60-65%, normal RV size and fxn, mild LAE, RVSP 40 mmHg 12/23/2016 P-Myoview: Small size, mild inferior ischemia LVEF 71% 1. Paroxysmal atrial fibrillation/atrial flutter recurrent arrhythmia with RVR [id number] score of 4, on DOAC's/Xarelto, recurrent symptomatic arrhythmia this AM 2. CAD/CAC- coronary artery calcification/CT scan chest dated 12/23/16 abnormal MPI study demand ischemic injury angina pectoris, chest pain syndrome with recurrent arrhythmia as noted above 3. Acute on chronic class I-II NYHA classification LV diastolic failure, resolved 4. HTN 5. DM 6. Hypercholesterolemia 7. 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 COPD with exacerbation, resolving 9. Prior history of substance abuse/Opioid dependence currently on Methadone treatment PLAN: 1. Continue Xarelto 20 qd 2. Increased Cardizem CD 240 qd, hemodynamics permitting, additional IV Cardizem to assist with rate control 3. Continue Diovan 80 qd, hemodynamics permitting as renal function at baseline 4. Decrease Betapace 80 bid with caution and close monitoring of QTc interval/ EKG's noted 5. Continue diuretics Lasix 40 qd 6. Oral steroids, bronchodilators, O2 as needed 7. May d/c home with f/u in office
[2018-12-24 12:19] VITALS: BP 136/85; PULSE 47; TEMP 98.9
[2018-12-24] MEDS ORDERED: SOTALOL HCL 80 MG TABLET (FP) PO SCH (22:00)
== END 2018-12-24 13:58 | disposition home or self-care (01) | DRG 201 ==
LOC: SUPCPDRO 20:10 → JER 20:10 → INTOOBSV 21:23 → JERBED 21:23 → J4W 23:47 → OBSVTOIN 12-18 16:04
PROVIDERS: ADMIT Internal Medicine
DX: I48.91 Unspecified atrial fibrillation (principal); J96.21 Acute and chronic respiratory failure with hypoxia; J44.1 Chronic obstructive pulmonary disease with (acute) exacerbation; F11.20 Opioid dependence, uncomplicated; I11.0 Hypertensive heart disease with heart failure; Z99.81 Dependence on supplemental oxygen; I27.20 Pulmonary hypertension, unspecified; E11.22 Type 2 diabetes mellitus with diabetic chronic kidney disease; I13.0 Hypertensive heart and chronic kidney disease with heart failure and stage 1 through stage 4 chronic kidney disease, or unspecified chronic kidney disease; E11.51 Type 2 diabetes mellitus with diabetic peripheral angiopathy without gangrene; I50.32 Chronic diastolic (congestive) heart failure; E87.5 Hyperkalemia; I24.8 Other forms of acute ischemic heart disease; I48.92 Unspecified atrial flutter; Z79.4 Long term (current) use of insulin; N18.9 Chronic kidney disease, unspecified; Z79.84 Long term (current) use of oral hypoglycemic drugs; Z79.01 Long term (current) use of anticoagulants; I48.0 Paroxysmal atrial fibrillation; I25.10 Atherosclerotic heart disease of native coronary artery without angina pectoris; Z88.0 Allergy status to penicillin; E78.5 Hyperlipidemia, unspecified; K21.9 Gastro-esophageal reflux disease without esophagitis
CPT/HCPCS: 36415; 71045-TC-FY; 80048; 80053; 80076; 80307; 82550; 82962; 83735; 83880; 84100; 84134; 84484; 85025; 85027; 85610; 85730; 87040; 87633; 87804; 93005; 93010; 94640; 94761; 97116-GP; 97161-GP; 99284-25; G0378

== ENCOUNTER 2018-12-30 10:05 | Inpatient (IN) | payer OTHER ==
[2018-12-30] MEDS ORDERED: ALBUTEROL SO4 2.5/IPRATROPIUM 0.5 INH SOL 3 ML VIAL.NEB. NEB ONE ×2 (10:35→10:53)
--- NOTE | 2018-12-30 10:48 | PDOC ---
History of Present Illness - General Chief Complaint: Shortness of Breath Stated Complaint: DIFFICULTY BREATHING Time Seen by Provider: 12/30/18 10:16 History Source: Patient Exam Limitations: No Limitations - History of Present Illness Initial Comments: 12/30/18 10:43 63 y/o male with PMH of CHF, COPD (on 2 L of home o2), Afib (on xarelto), DM who presents to the ED with worsening shortness of breath. Of note, patient was here about a week ago with similar symptoms- was admitted and sent home on a prednisone taper which he took upon himself to abruptly stop. He states that since yesterday he has been having worsening shortness of breath so much so that he can barely go to the bathroom without becoming dyspneic. This is his 4th time in the hospital in the past few months with worsening shortness of breath. He states that he does take all of his medications regularly however feels that his breathing is getting worse. He denies any fevers or chills but does endorse a productive cough with greenish-whitish sputum and did have some slight chest pains last night. he denies any sick contacts or any recent travel. He has regular follow up with his pulmnologist Dr. Coleman and had last seen his vp compliance Dr. Burns a few months ago . Timing/Duration: 24 hours Severity: moderate Associated Symptoms: reports: chest pain, cough. denies: fever/chills Past History - Travel Traveled outside of the country in the last 30 days: No Close contact w/someone who was outside of country & ill: No - Past Medical History Allergies/Adverse Reactions: Allergies Allergy/AdvReac Type Severity Reaction Status Date / Time Penicillins Allergy "rash" Verified 12/30/18 10:17 Home Medications: Ambulatory Orders Methadone [Dolophine -] 65 mg PO DAILY 09/25/17 Rivaroxaban [Xarelto -] 20 mg PO DAILY 09/25/17 metFORMIN HCL [Glucophage -] 500 mg PO BID 09/25/17 Albuterol Sulfate Inhaler - [Ventolin HFA Inhaler -] 1 - 2 inh PO QID PRN #1 inhaler 01/26/18 Furosemide [Lasix -] 40 mg PO DAILY #30 tablet 11/14/18 Budesonide/Formeterol Fumarate [SYMBICORT 160/4.5mcg -] 2 puff IH BID #7 inhaler 12/10/18 Pantoprazole Sodium [Protonix -] 40 mg PO DAILY #30 tablet.ec 12/10/18 Diltiazem Cd [Cardizem Cd -] 240 mg PO DAILY 30 Days #30 cap.cd.24h 12/24/18 Nitroglycerin 0.4 mg SL PRN 7 Days #7 tab.subl 12/24/18 Prednisone See Taper PO ASDIR 20 Days #32 tablet 12/24/18 Sotalol HCl [Betapace -] 80 mg PO BID 30 Days #60 tablet 12/24/18 Valsartan [Diovan] 80 mg PO DAILY 30 Days #30 tablet 12/24/18 Anemia: No Asthma: No Cancer: No Cardiac Disorders: Yes (CHF, O2 dependent) CVA: No COPD: Yes CHF: Yes Dementia: No Diabetes: Yes GI Disorders: Yes (acid reflux) Disorders: No HTN: Yes Hypercholesterolemia: Yes Liver Disease: No Seizures: No Thyroid Disease: No - Surgical History Abdominal Surgery: Yes (AAA repair) Cardiac Surgery: Yes - Immunization History Immunization Up to Date: No - Suicide/Smoking/Psychosocial Hx Smoking History: Former smoker Have you smoked in the past 12 months: No Number of Cigarettes Smoked Daily: 10 If you are a former smoker, when did you quit?: 2016 Cigars Per Day: 0 Information on smoking cessation initiated: No Hx Alcohol Use: No Drug/Substance Use Hx: No Substance Use Type: Heroin Hx Substance Use Treatment: Yes Review of Systems - Review of Systems Able to Perform ROS?: Yes Is the patient limited German proficient: No Constitutional: No: Chills HEENTM: No: Blurred Vision Respiratory: Yes: Shortness of Breath, SOB at Rest, Productive cough Cardiac (ROS): No: Chest Pain ABD/GI: No: Nausea, Vomiting : No: Burning, Dysuria *Physical Exam - Vital Signs Last Vital Signs Temp Pulse Resp BP Pulse Ox 99 F 127 H 22 H 167/96 96 12/30/18 10:13 12/30/18 10:13 12/30/18 10:13 12/30/18 10:13 12/30/18 10:20 - Physical Exam General Appearance: Yes: Mild Distress (appears tachypneic at rest ) Neck: positive: Normal Thyroid Respiratory/Chest: positive: Labored Respiration, Rales (at the B/L bases), Wheezing (anteriorly B/L ) Cardiovascular: positive: S1, S2, Edema (1+ pitting edema B/L ), Tachycardia, Irregularly Irregular Musculoskeletal: negative: CVA Tenderness Neurologic: positive: Fully Oriented, Alert ED Treatment Course - LABORATORY CBC & Chemistry Diagram: 12/30/18 10:50 12/30/18 10:55 - RADIOLOGY Radiology Studies Ordered: Category Date Time Status CHEST X-RAY PORTABLE* [RAD] Stat Radiology 12/30/18 10:28 Ordered Medical Decision Making - Medical Decision Making 12/30/18 10:53 cbc/cmp/cardiac profile ekg CXR steroids /neb treatment / abx giving 20 IV diltiazem for afib w/ RVR 12/30/18 10:57 *DC/Admit/Observation/Transfer Diagnosis at time of Disposition: Shortness of breath, COPD exacerbation - Discharge Dispostion Condition at time of disposition: Stable Decision to Admit order: Yes - Referrals - Patient Instructions - Post Discharge Activity - Attestations Physician Attestion: 12/30/18 13:08 Lizett [place]
[2018-12-30] MEDS ORDERED: predniSONE 20 MG TABLET (UD) PO ONE (10:54)
[2018-12-30] MEDS ORDERED: predniSONE 20 MG TABLET (UD) ONE (11:01)
[2018-12-30] MEDS ORDERED: AZITHROMYCIN IVPB 500 MG/250 ML BAG IVPB ONE (11:02)
[2018-12-30 11:05] LABS: BASO % 0.2 % (0-2.0); HEMATOCRIT 46.4 % (35.4-49); LYMPH % 1.9 % (8-40); MCH 30.1 pg (25.7-33.7); MCHC 32.4 g/dl (32.0-35.9); MEAN CELL VOLUME 92.9 fl (80-96); MEAN PLT VOLUME 9.7 fl (7.5-11.1); MONO % 7.5 % (3.8-10.2); NEUT % 90.4 % (42.8-82.8); PLATELET COUNT 143 K/MM3 (134-434); RDW 16.6 % (11.9-15.9); WHITE BLOOD COUNT 18.6 K/mm3 (4.0-10.0)
[2018-12-30 11:08] LABS: VENOUS PC02 52.7 mmHg (41-51); VENOUS PH 7.36 (7.31-7.41); VENOUS PO2 35.2 mmHg (30-40)
[2018-12-30] MEDS: AZITHROMYCIN IVPB 500 MG in DEXTROSE 5%-WATER - 250 ML IVPB ONE (11:10)
--- NOTE | 2018-12-30 11:17 | PDOC ---
Documentation entered by Winter Dsouza SCRIBE, acting as scribe for Brenda Casanova MD. Brenda Casanova MD: This documentation has been prepared by the Lianna ha Daisy, SCRIBE, under my direction and personally reviewed by me in its entirety. I confirm that the documentation accurately reflects all work, treatment, procedures, and medical decision making performed by me. Attending Attestation - Resident Resident Name: RivkalastLizett - ED Attending Attestation I have performed the following: I have examined & evaluated the patient, The case was reviewed & discussed with the resident, I agree w/resident's findings & plan - HPI HPI: 12/30/18 10:55 The patient is a 63 YOM with a PMH of CHF, COPD on 2L of home O2, a fib on xarelto, and DM who presents to the ED for evaluation of persistent shortness of breath and cough productive of green sputum. Patient was admitted to the ED for similar shortness of breath and discharged on 12/24 on a prednisone taper. Patient discontinued the prednisone on his own after "noticing elevated blood glucose levels at home." Patient has been evaluated multiple times in this ED for similar complaint. He has been complaint with all of his other meds. Denies recent travel. Denies any fevers or chills. Follows up with Dr. Coleman, nurse practitioner home assessments. Allergies: Penicillins Surgeries: abdominal aneurysm repair Social: Former smoker. Denies drug or alcohol use. - Physicial Exam PE: 12/30/18 11:18 ADULT EXAM GENERAL: (+) Awake in mild respiratory stress. (+) Speaking in full sentences. LUNGS: (+) Decreased air entry with diffuse wheezing bilaterally. HEART: (+) Tachycardic with irregular rhythm. No murmurs. ABDOMEN: Soft, nontender, normoactive bowel sounds. No guarding, no rebound. No masses EXTREMITIES: (+) Legs with 1+ pitting edema to the calves bilaterally. Normal range of motion. No clubbing or cyanosis. No cords, erythema, or tenderness NEUROLOGICAL: Normal speech. Normal affect. - Medical Decision Making 12/30/18 12:13 Pt presents to the ED complaining of shortness of breath and cough productive of green sputum. Patient has a long standing history of COPD extensive other past history as noted in resident note. In rapid a fib on arrival to the ED, improved spontaneously. Will treat with nebs and steroids and admit. Given history of COPD, will treat with antibiotics for PNA, as well. Will admit to medicine.
[2018-12-30 11:48] LABS: ALBUMIN 3.2 g/dl (3.4-5.0); ALK PHOS 121 U/L (45-117); ANION GAP 9 MMOL/L (8-16); BILIRUBIN,TOTAL 1.1 mg/dL (0.2-1); BLOOD UREA NITROGEN 25 mg/dL (7-18); CALCIUM 8.9 mg/dL (8.5-10.1); CHLORIDE 95 mmol/L (98-107); CO2 28 mmol/L (21-32); CREATININE 1.2 mg/dL (0.55-1.3); GLUCOSE,RANDOM 226 mg/dL (74-106); POTASSIUM 4.7 mmol/L (3.5-5.1); SGOT/AST 26 U/L (15-37); SGPT/ALT 30 U/L (13-61); SODIUM 133 mmol/L (136-145); TOT PROT 6.4 g/dl (6.4-8.2)
[2018-12-30 12:21] LABS: ANISOCYTOSIS 0; MACROCYTOSIS 1+; PLATELET ESTIMATE DECREASED
--- NOTE | 2018-12-30 13:02 | HP ---
CHIEF COMPLAINT: "my breathing is getting worse" PCP: Dr. Ricardo Laguerre Cardio: Dr. Katy Young: Dr Coleman HISTORY OF PRESENT ILLNESS: This is a 63 yo M with PMH of HFPEF, pulm HTN, persistent AF on Xarelto, COPD on 2L O2, DM, Methadone dependence, who presents due to worsening sob since yesterday. He was recently discharged on 12/24 after treatment for COPD exacerbation and was supposed to take a 2w prednisone taper, which he abruptly stopped at 1w due to worsened hyperglycemia. This is his 5th admission this year for COPD exacerbation and CHF exacerbation. Current sob is severe to the point where he is unable to make it to the bathroom without stopping. he reports cough productive of green sputum and mild cp. Denies sick contacts, denies increased salt or water intake. reports compliance with home meds. Was initially in AF RVR 120's in ED but now rate controlled Last TTE 11/14: normal EF + pulm HTN ER course was notable for: (1)cxr, labs (2)cardizem, nebs, prednisone Recent Travel: denies PAST MEDICAL HISTORY: as above PAST SURGICAL HISTORY: as above Social History: Smoking: past Alcohol:denies Drugs: denies Allergies Penicillins Allergy (Verified 12/30/18 10:17) "rash" HOME MEDICATIONS: Home Medications Medication Instructions Recorded Methadone [Dolophine -] 65 mg PO DAILY 09/25/17 Rivaroxaban [Xarelto -] 20 mg PO DAILY 09/25/17 metFORMIN HCL [Glucophage -] 500 mg PO BID 09/25/17 Albuterol Sulfate Inhaler - 1 - 2 inh PO QID PRN #1 inhaler 01/26/18 [Ventolin HFA Inhaler -] Furosemide [Lasix -] 40 mg PO DAILY #30 tablet 11/14/18 Budesonide/Formeterol Fumarate 2 puff IH BID #7 inhaler 12/10/18 [SYMBICORT 160/4.5mcg -] Pantoprazole Sodium [Protonix -] 40 mg PO DAILY #30 tablet.ec 12/10/18 Diltiazem Cd [Cardizem Cd -] 240 mg PO DAILY 30 Days #30 12/24/18 cap.cd.24h Nitroglycerin 0.4 mg SL PRN 7 Days #7 tab.subl 12/24/18 Prednisone See Taper PO ASDIR 20 Days #32 12/24/18 tablet Sotalol HCl [Betapace -] 80 mg PO BID 30 Days #60 tablet 12/24/18 Valsartan [Diovan] 80 mg PO DAILY 30 Days #30 tablet 12/24/18 REVIEW OF SYSTEMS CONSTITUTIONAL: Absent: chills, diaphoresis HEENT: Absent: throat pain, difficulty swallowing CARDIOVASCULAR: Absent: syncope, lightheadedness, peripheral edema RESPIRATORY: Absent: stridor, hemoptysis GASTROINTESTINAL: Absent: abdominal pain, abdominal distension, nausea, diarrhea, constipation, melena, hematochezia GENITOURINARY: Absent: dysuria MUSCULOSKELETAL: Absent: back pain, neck pain SKIN: Absent: rash, itching, pallor HEMATOLOGIC/IMMUNOLOGIC: Absent: easy bleeding, easy bruising ENDOCRINE: Absent:heat intolerance, cold intolerance NEUROLOGIC: Absent: headache, focal weakness or paresthesias PSYCHIATRIC: Absent: anxiety, depression PHYSICAL EXAMINATION Vital Signs - 24 hr 12/30/18 12/30/18 10:13 10:20 Temperature 99 F Pulse Rate 127 H Respiratory 22 H Rate Blood Pressure 167/96 O2 Sat by Pulse 96 96 Oximetry (%) GENERAL: Awake, alert, and fully oriented, in no acute distress. HEAD: Normal with no signs of trauma. EYES: Pupils equal, round and reactive to light, extraocular movements intact, sclera anicteric, conjunctiva clear. EARS, NOSE, THROAT: Moist mucous membranes. NECK: Normal range of motion, supple +JVD at 30 degrees recline LUNGS: diffusely restricted breth sounds, end expiratory wheezes HEART: irregularly irregular, tachy, s1s2 ABDOMEN: Soft, nontender, not distended, normoactive bowel sounds, no guarding, no rebound, no masses. MUSCULOSKELETAL: No CVA tenderness. UPPER EXTREMITIES: 2+ pulses, warm, well-perfused. No peripheral edema. LOWER EXTREMITIES: warm, well-perfused. No calf tenderness. 1+ peripheral edema but wrinkles skin, some stasis changes on calves. NEUROLOGICAL: Cranial nerves II-XII grossly intact. Normal speech. PSYCHIATRIC: Cooperative. Good eye contact. Appropriate mood and affect. SKIN: Warm, dry Laboratory Results - last 24 hr 12/30/18 12/30/18 12/30/18 10:50 10:55 10:55 WBC 18.6 H RBC 5.00 Hgb 15.0 Hct 46.4 MCV 92.9 MCH 30.1 MCHC 32.4 RDW 16.6 H Plt Count 143 MPV 9.7 D Absolute Neuts (auto) 16.8 H Neutrophils % 90.4 H Neutrophils % (Manual) 83.5 H Band Neutrophils % 9.3 Lymphocytes % 1.9 L D Lymphocytes % (Manual) 6.2 L D Monocytes % 7.5 D Monocytes % (Manual) 1 L Eosinophils % 0.0 Eosinophils % (Manual) 0.0 Basophils % 0.2 Basophils % (Manual) 0.0 Myelocytes % (Man) 0 Promyelocytes % (Man) 0 Blast Cells % (Manual) 0 Nucleated RBC % 0 Metamyelocytes 0 Hypochromia 0 Platelet Estimate Decreased Polychromasia 0 Poikilocytosis 0 Anisocytosis 0 Microcytosis 0 Macrocytosis 1+ VBG pH 7.36 POC VBG pCO2 52.7 H POC VBG pO2 35.2 VBG HCO3 28.6 VBG O2 Sat (Ubaldo) 61.0 L VBG Base Excess 2.3 H Sodium 133 L Potassium 4.7 Chloride 95 L Carbon Dioxide 28 Anion Gap 9 BUN 25 H Creatinine 1.2 Creat Clearance w eGFR 61.15 Random Glucose 226 H Calcium 8.9 Total Bilirubin 1.1 H AST 26 ALT 30 Alkaline Phosphatase 121 H Creatine Kinase 44 Troponin I 0.05 Total Protein 6.4 Albumin 3.2 L ASSESSMENT/PLAN: COPD exacerbation AF RVR pulm HTN DM methadone dependance GERD -cxr appears congested, cant r/o bibasilar infiltrate -ekg af rvr no change from prior qtc 438 -supplemental O2, donebs, symbicort, medrol, azithro/levaquin -sputum cultures -rate control PRN cardizem push continue PO lopressor 50 BID, consider increasing dose. -IV lasix 40 D -daily cxr -daily ekg for QTc monitoring -continue xarelto -continue metformin, BGM q4h -recommend sleep study Problem List - Problem (1) Acute on chronic respiratory failure with hypoxia and hypercapnia Code(s): J96.21 - ACUTE AND CHRONIC RESPIRATORY FAILURE WITH HYPOXIA; J96.22 - ACUTE AND CHRONIC RESPIRATORY FAILURE WITH HYPERCAPNIA (2) COPD exacerbation Code(s): J44.1 - CHRONIC OBSTRUCTIVE PULMONARY DISEASE W (ACUTE) EXACERBATION (3) Pneumonia Code(s): J18.9 - PNEUMONIA, UNSPECIFIED ORGANISM (4) Shortness of breath Code(s): R06.02 - SHORTNESS OF BREATH (5) Atrial fibrillation with rapid ventricular response Code(s): I48.91 - UNSPECIFIED ATRIAL FIBRILLATION Visit type - Emergency Visit Emergency Visit: Yes ED Registration Date: 12/30/18 Care time: The patient presented to the Emergency Department on the above date and was hospitalized for further evaluation of their emergent condition. - New Patient This patient is new to me today: Yes Date on this admission: 12/30/18 - Critical Care Critical Care patient: No
[2018-12-30] MEDS ORDERED: ALBUTEROL SO4 8 GM HFA INHALER IH PRN (13:55)
[2018-12-30] MEDS ORDERED: NITROGLYCERIN SUBLINGUAL 1/150 0.4 MG TAB SL PRN (14:00)
[2018-12-30] MEDS ORDERED: ACETAMINOPHEN 325 MG TABLET (FP) PO PRN (14:04)
[2018-12-30 14:59] VITALS: BMI 27.5
[2018-12-30] MEDS ORDERED: methylPREDNISolone NA SUCC 40 MG/1 ML VIAL IVPUSH SCH (15:00)
[2018-12-30] MEDS ORDERED: CEFTRIAXONE 2 GM in DEXTROSE 5%-WATER 100 ML IVPB SCH (15:00)
--- NOTE | 2018-12-30 15:42 | PN ---
Teaching Attending Note Name of Resident: Toshia Naranjo ATTENDING PHYSICIAN STATEMENT I saw and evaluated the patient. I reviewed the resident's note and discussed the case with the resident. I agree with the resident's findings and plan as documented. SUBJECTIVE:63yo M with PMH systolic CHF, pulmonary HTN, afib on xarelto, COPD on 2L NC, DM and chronic methadone presented to the ER with sob and productive cough of green sputum and found to be in afib with RVR. was recently discharged on 12/24 with similar presentation with steroids and abx. states he stopped the steroids a few fays ago due to having multiple high sugar readings. states he completed his other medication. had some slight chest discomfort last night but came due to worsening dyspnea. he took NTG last night iwth chest pressure relief. denies fever, chills, N/V/C/D OBJECTIVE: Last Vital Signs Temp Pulse Resp BP Pulse Ox 98.3 F 92 H 20 157/87 97 12/30/18 14:53 12/30/18 14:53 12/30/18 14:53 12/30/18 14:53 12/30/18 13:52 General NAD CV S1 S2 irregular Lungs diffuse expiratory wheezing, poor lung entry ABdomen soft NT/ND Extremiteis no pedal edema ASSESSMENT AND PLAN: 63yo M with PMH systolic CHF, pulmonary HTN, afib on xarelto, COPD on 2L NC, DM and chronic methadone presented to the ER with sob and productive cough of green sputum and found to be in afib with RVR 1. Afib with RVR- HR was 127 on arrival and currently 90 wihtout medications given. was initaited on sotalol last hospital stay. will cont with cardizem and xarelto. ws recommended to have stress test at last hospitalization which he declined. 2. acute on chronic hypoxic respiratory failure- likely potentiated by abrupt withdrawal of steroids nad new RLL infiltrate. currenly 93% on 3L NC. received ceftriaxone/azithromycin in the ER. in setting of recent hospitalization would treat with levaquin. will need to check QTc prior to starting. start medrol 60mg Q6H, nebs and inhalers. pulmonary consulted. titrate down supplemental oxygen as tolerated. 3. sepsis due to RLL PNA- HCAP. started on ceftiraxone and azithro. will switch to levaquin for 5 day course. check Qtc 4. systolic CHF-clinically euvolemic. cont home medications 5. DM- hold oral agents. iss and bgm 6. Chronic methadone- confirm dose. will need to monitor Qtc closely 7. DVT ppx- xarelto 8. spoke with present at bedside. all questions answered. verbalized understanding and agreement
--- NOTE | 2018-12-30 16:21 | PN ---
Progress Note (short form) - Note Progress Note: PULMONARY CONSULTATION DICTATED 12/30/18 IMP ACUTE ON CHRONIC HYPOXEMIC/HYPERCAPNEIC RESPIRATORY FAILURE COPD O2 DEPENDENT WITH ACUTE EXACERBATION R/O RLL PNEUMONIA AFIB CHF DM PLAN IV STEROIDS INHALED BRONCHODILATORS ABX TO [facility] ACQUIRED INFECTION O2 CHEST CT BNP MONITOR BLOOD SUGARS AC ABG DR PARSONS Problem List - Problems (1) COPD exacerbation Code(s): J44.1 - CHRONIC OBSTRUCTIVE PULMONARY DISEASE W (ACUTE) EXACERBATION (2) Shortness of breath Code(s): R06.02 - SHORTNESS OF BREATH (3) CHF (congestive heart failure) Code(s): I50.9 - HEART FAILURE, UNSPECIFIED (4) COPD (chronic obstructive pulmonary disease) Code(s): J44.9 - CHRONIC OBSTRUCTIVE PULMONARY DISEASE, UNSPECIFIED Qualifiers: COPD type: unspecified COPD Qualified Code(s): J44.9 - Chronic obstructive pulmonary disease, unspecified (5) Diabetes type 2, controlled Code(s): E11.9 - TYPE 2 DIABETES MELLITUS WITHOUT COMPLICATIONS Qualifiers: Diabetes mellitus [facility] insulin use: without buttermaker continuous churn use (6) Diastolic dysfunction Code(s): I51.9 - HEART DISEASE, UNSPECIFIED (7) Methadone dependence Code(s): F11.20 - OPIOID DEPENDENCE, UNCOMPLICATED (8) PNA (pneumonia) Code(s): J18.9 - PNEUMONIA, UNSPECIFIED ORGANISM Qualifiers: Pneumonia type: due to unspecified organism Laterality: unspecified laterality Lung location: unspecified part of lung Qualified Code(s): J18.9 - Pneumonia, unspecified organism (9) Pneumonia Code(s): J18.9 - PNEUMONIA, UNSPECIFIED ORGANISM (10) Acute on chronic respiratory failure with hypoxia and hypercapnia Code(s): J96.21 - ACUTE AND CHRONIC RESPIRATORY FAILURE WITH HYPOXIA; J96.22 - ACUTE AND CHRONIC RESPIRATORY FAILURE WITH HYPERCAPNIA
[2018-12-30] MEDS ORDERED: DEXTROSE 5%-WATER 100 ML IVPB ONE (16:35)
[2018-12-30] MEDS ORDERED: ALBUTEROL SO4 0.083% IH SOL 2.5 MG/3 ML VIAL.NEB. NEB PRN (16:36)
[2018-12-30] MEDS: methylPREDNISolone NA SUCC 40 MG/1 ML VIAL IVPUSH SCH ×2 (16:49→21:39)
[2018-12-30] MEDS: INSULIN SLIDING SCALE (NOVOLOG) 1 VIAL SQ SCH ×2 (16:49→21:39)
[2018-12-30 17:07] LABS: ARTERIAL BLD GAS O2 SATURATION 90.6 % (95-98); ARTERIAL BLOOD GAS BASE EXCESS 2.5 meq/l (-2-2); ARTERIAL BLOOD GAS PCO2 42.8 mmHg (35-45); ARTERIAL BLOOD GAS PO2 65.8 mmHg (80-105); ARTERIAL BLOOD GAS pH 7.42 (7.35-7.45)
[2018-12-30 17:09] LABS: ALLENS TEST POSITIVE
--- NOTE | 2018-12-30 19:52 | CONS ---
DATE OF CONSULTATION: 12/30/2018 PULMONARY CONSULTATION REFERRING PHYSICIAN: Yumi Mi M.D. HISTORY OF PRESENT ILLNESS: The patient is a 63-year-old white male known to me from previous hospitalization with past medical history of CHF, COPD, advanced on home O2, atrial fibrillation, maintained on Xarelto, diabetes, peripheral vascular disease, recently hospitalized at [facility] secondary to COPD exacerbation, was discharged December 24, readmitted earlier today with complaint of 3-day history increasing shortness of breath, chest congestion, cough productive of green sputum. The patient states before recently discharged after being treated for COPD exacerbation. He was discharged home with steroid taper, but stopped taking the steroid secondary to elevated blood sugar. Next day, patient started developing increasing shortness of breath, dyspnea on exertion, wheezing, which continued to worsen at which time presented to emergency room earlier today. In the ER, he had chest x-ray performed which revealed probable right lower lobe infiltrate. He was placed on inhaled bronchodilators with IV steroids and transferred to medical floor for further management. The patient has a longstanding history of tobacco use approximately a pack a day for many years, quit 2 years ago. 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 He denies hemoptysis. No history of recent travel. No history of DVT or PE in the past and includes CHF, O2 dependent COPD, atrial fibrillation, diabetes. REVIEW OF SYSTEMS: Positive cough. Positive shortness of breath. Positive sputum production. No chest pain, no palpitations, no fever, no chills, no hemoptysis. CURRENT MEDICATIONS: Include Symbicort, Solu-Medrol, Tylenol, Diovan, Zithromax , ceftriaxone, Xarelto, albuterol, Betapace, Cardizem, NovoLog, Lasix, Nitrostat, methadone, pantoprazole. PHYSICAL EXAMINATION: GENERAL: The patient is a well-developed, well-nourished male, awake, alert, in no acute distress. He is afebrile. VITAL SIGNS: Blood pressure 157/87, respiratory rate 20 and O2 saturation is 97 % on 2 L nasal cannula. HEENT: Normocephalic, atraumatic. NECK: Supple. HEART: Regular S1, S2. CHEST: Scattered bilateral rhonchi. ABDOMEN: Soft, bowel sounds positive. EXTREMITIES: No cyanosis, edema. LABORATORY: sodium 133, BUN 25, creatinine 1.2. WBC is 18.6, hemoglobin 15, hematocrit 46.4, with platelet count of 143,000. Chest x-ray, right lower lobe pneumonia, increased markings at the right base. Venous blood gas: pH 7.36, pCO2 of 52, pO2 of 35, bicarbonate of 28, saturation of 61 on unknown quantity of oxygen. IMPRESSION: Acute on chronic hypercapnic, hypoxemic respiratory failure secondary to: 1. Advanced chronic obstructive pulmonary disease with acute exacerbation. 2. Rule out pneumonia, right lower lobe. 3. Atrial fibrillation. 4. Congestive heart failure. 5. Diabetes. PLAN: IV steroids. Inhaled bronchodilators. Supplemental O2. Obtain CT scan of the chest. Check ABG,BNP. Monitor blood sugars. Anticoagulation. antibiotic coverage for hospital acquired infection. REUBEN PARSONS M.D. DOT/[id number] MTDD
[2018-12-30] MEDS: ALBUTEROL SO4 2.5/IPRATROPIUM 0.5 INH SOL 3 ML VIAL.NEB. NEB SCH (20:50)
[2018-12-30] MEDS: SOTALOL HCL 80 MG TABLET (FP) PO SCH (21:39)
[2018-12-30] MEDS ORDERED: BUDESONIDE/FORMETEROL FUMARATE 160/4.5 mcg INHALER IH SCH (22:00)
[2018-12-31] MEDS: methylPREDNISolone NA SUCC 40 MG/1 ML VIAL IVPUSH SCH ×4 (02:32→21:26)
[2018-12-31] MEDS: INSULIN SLIDING SCALE (NOVOLOG) 1 VIAL SQ SCH ×4 (06:01→21:26)
[2018-12-31] MEDS: ALBUTEROL SO4 2.5/IPRATROPIUM 0.5 INH SOL 3 ML VIAL.NEB. NEB SCH ×4 (07:25→20:12)
[2018-12-31 08:46] LABS: BASO % 0.3 % (0-2.0); HEMATOCRIT 47.6 % (35.4-49); HEMOGLOBIN 15.2 GM/dL (11.7-16.9); LYMPH % 2.5 % (8-40); MCH 29.9 pg (25.7-33.7); MEAN CELL VOLUME 93.4 fl (80-96); MONO % 4.2 % (3.8-10.2); PLATELET COUNT 138 K/MM3 (134-434); RBC 5.09 M/mm3 (4.00-5.60); RDW 16.7 % (11.9-15.9)
[2018-12-31 09:05] LABS: ANION GAP 11 MMOL/L (8-16); BLOOD UREA NITROGEN 28 mg/dL (7-18); CALCIUM 9.3 mg/dL (8.5-10.1); CHLORIDE 97 mmol/L (98-107); CO2 27 mmol/L (21-32); GLUCOSE,RANDOM 237 mg/dL (74-106); MAGNESIUM 2.1 mg/dL (1.8-2.4); PHOSPHOROUS 4.4 mg/dL (2.5-4.9); POTASSIUM 4.5 mmol/L (3.5-5.1); SODIUM 136 mmol/L (136-145)
[2018-12-31] MEDS: PANTOPRAZOLE 40 MG TABLET (FP) PO SCH (09:09)
[2018-12-31] MEDS: SOTALOL HCL 80 MG TABLET (FP) PO SCH ×2 (09:09→21:26)
[2018-12-31] MEDS: AZITHROMYCIN IVPB 500 MG in DEXTROSE 5%-WATER - 250 ML IVPB ONE (09:10)
[2018-12-31] MEDS: FUROSEMIDE 40 MG TABLET (FP) PO SCH (09:11)
[2018-12-31] MEDS: VALSARTAN 80 MG TABLET (UD) PO SCH (09:11)
--- NOTE | 2018-12-31 09:30 | PN ---
Progress Note (short form) - Note Progress Note: c/o dyspnea at rest. denies CP, palpitatins, N/V/C/D, cough Current Medications Generic Name Dose Route Start Last Admin Trade Name Freq PRN Reason Stop Dose Admin Acetaminophen 650 mg 12/30/18 14:04 Tylenol - PO Q4H PRN PAIN Albuterol Sulfate 1 amp 12/30/18 16:36 12/30/18 16:55 Ventolin 0.083% Nebulizer Soln - NEB 1 amp Q4H PRN Administration SHORT OF BREATH/WHEEZING Albuterol/Ipratropium 1 amp 12/30/18 20:00 12/31/18 07:25 Duoneb - NEB 1 amp RQID DOMINIC Administration Diltiazem HCl 240 mg 12/31/18 10:00 12/31/18 09:11 Cardizem Cd - PO 240 mg DAILY DOMINIC Administration Furosemide 40 mg 12/31/18 10:00 12/31/18 09:11 Lasix - PO 40 mg DAILY DOMINIC Administration Azithromycin 500 mg in 250 mls @ 250 mls/hr 12/31/18 10:00 12/31/18 09:10 Zithromax 500mg Ivpb (Pre-Docked) IVPB 250 mls/hr DAILY DOMINIC Administration Levofloxacin 750 mg in 150 mls @ 100 mls/hr 12/31/18 10:00 12/31/18 09:11 Levaquin 750 Mg Premixed Ivpb - IVPB 100 mls/hr DAILY DOMINIC Administration Protocol Insulin Aspart 1 vial 12/30/18 16:30 12/31/18 06:01 Novolog Vial Sliding Scale - SQ 2 units ACHS DOMINIC Administration Protocol Methadone HCl 65 mg 12/31/18 10:00 Dolophine - PO DAILY DOMINIC Methylprednisolone Sodium Succinate 40 mg 12/30/18 17:00 12/31/18 08:55 Solu-Medrol - IVPUSH 40 mg Q6H-IV DOMINIC Administration Nitroglycerin 0.4 mg 12/30/18 14:00 Nitrostat - SL Q5M PRN CHEST PAIN Pantoprazole Sodium 40 mg 12/31/18 10:00 12/31/18 09:09 Protonix - PO 40 mg DAILY DOMINIC Administration Rivaroxaban 20 mg 12/31/18 18:00 Xarelto PO DAILY@1800 DOMINIC Sotalol HCl 80 mg 12/30/18 22:00 12/31/18 09:09 Betapace - PO 80 mg BID DOMINIC Administration Valsartan 80 mg 12/31/18 10:00 12/31/18 09:11 Diovan - PO 80 mg DAILY DOMINIC Administration Last Vital Signs Temp Pulse Resp BP Pulse Ox 98.1 F 79 18 146/87 96 12/31/18 04:00 12/31/18 04:00 12/31/18 04:00 12/31/18 04:00 12/30/18 21:00 General NAD, no signs of respiratory distress CV S1 S2 irregular tahycardic Lungs decreased breath sounds diffusely, poor lung entry ABdomen soft NT/ND Extremiteis no pedal edema CBCD WBC 22.0 K/mm3 (4.0-10.0) H 12/31/18 08:20 RBC 5.09 M/mm3 (4.00-5.60) 12/31/18 08:20 Hgb 15.2 GM/dL (11.7-16.9) 12/31/18 08:20 Hct 47.6 % (35.4-49) 12/31/18 08:20 MCV 93.4 fl (80-96) 12/31/18 08:20 MCHC 32.0 g/dl (32.0-35.9) 12/31/18 08:20 RDW 16.7 % (11.9-15.9) H 12/31/18 08:20 Plt Count 138 K/MM3 (134-434) 12/31/18 08:20 MPV 11.0 fl (7.5-11.1) D 12/31/18 08:20 CMP Sodium 136 mmol/L (136-145) 12/31/18 08:20 Potassium 4.5 mmol/L (3.5-5.1) 12/31/18 08:20 Chloride 97 mmol/L (98-107) L 12/31/18 08:20 Carbon Dioxide 27 mmol/L (21-32) 12/31/18 08:20 Anion Gap 11 MMOL/L (8-16) 12/31/18 08:20 BUN 28 mg/dL (7-18) H 12/31/18 08:20 Creatinine 1.0 mg/dL (0.55-1.3) 12/31/18 08:20 Creat Clearance w eGFR 75.47 (>60) 12/31/18 08:20 Calcium 9.3 mg/dL (8.5-10.1) 12/31/18 08:20 Total Bilirubin 1.1 mg/dL (0.2-1) H 12/30/18 10:55 AST 26 U/L (15-37) 12/30/18 10:55 ALT 30 U/L (13-61) 12/30/18 10:55 Alkaline Phosphatase 121 U/L (45-117) H 12/30/18 10:55 Total Protein 6.4 g/dl (6.4-8.2) 12/30/18 10:55 Albumin 3.2 g/dl (3.4-5.0) L 12/30/18 10:55 ASSESSMENT AND PLAN: 63yo M with PMH systolic CHF, pulmonary HTN, afib on xarelto, COPD on 2L NC, DM and chronic methadone presented to the ER with sob and productive cough of green sputum and found to be in afib with RVR 1. Afib with RVR- HR 120 saturating 97% on 3L NC. symptoms likely related to HR being uncontrolled than lung issue. will give AM medications now. and monitor HR if persists >110 will move him to cardiac unit for cardiac monitoring. will cont with cardizem and xarelto. ws recommended to have stress test at last hospitalization which he declined. 2. acute on chronic hypoxic respiratory failure- likely potentiated by abrupt withdrawal of steroids and new RLL infiltrate. currenly 97% on 3L NC. dyspnea more likely due to tachycardia than primary lung issue. pt resting comfortable speaking in clear sentences. will cont with Solumedrol current dosing. will d/c azithromycin due to multiple medications with prolonged Qtc. CT chest done. will f/u results. Cont nebs and inhalers. pulmonary consulted. titrate down supplemental oxygen as tolerated. 3. sepsis due to RLL PNA- HCAP. on levaquin day 2. repeat EKG to monitor Qtc. yesterday 480 4. systolic CHF-clinically euvolemic. cont home medications 5. DM- hold oral agents. iss and bgm 6. Chronic methadone-confirmed dose 65mg. will order 7. DVT ppx- xarelto 8. Close monitoring of patient. spoke with RN. will call with repeat vitals in 30mins. if remains tachycardic will move to tele for cardiac monitoring Visit type - Emergency Visit Emergency Visit: Yes ED Registration Date: 12/30/18 Care time: The patient presented to the Emergency Department on the above date and was hospitalized for further evaluation of their emergent condition. - New Patient This patient is new to me today: No - Critical Care Critical Care patient: No - Discharge Referral Referred to [facility] Med [facility] No
[2018-12-31] MEDS ORDERED: METHADONE HCL 5 MG TABLET ONE ×2 (09:58→10:07)
[2018-12-31] MEDS ORDERED: METHADONE HCL 10 MG TABLET ONE ×2 (09:59→10:07)
[2018-12-31] MEDS ORDERED: AZITHROMYCIN IVPB 500 MG/250 ML BAG IVPB SCH (10:00)
[2018-12-31] MEDS ORDERED: METHADONE HCL 40 MG DISPERSABLE TABLET PO SCH (10:00)
[2018-12-31] MEDS ORDERED: METHADONE HCL 40 MG DISPERSABLE TABLET ONE (10:08)
[2018-12-31] MEDS: METHADONE PO SCH (10:13)
[2018-12-31 13:31] LABS: ANISOCYTOSIS 1+; MACROCYTOSIS 1+; OVALOCYTE 1+; PLATELET ESTIMATE DECREASED
--- NOTE | 2018-12-31 14:45 | PN ---
Progress Note, Physician History of Present Illness: pulmonary alert,c/o sob,-cp - Current Medication List Current Medications: Active Medications Acetaminophen (Tylenol -) 650 mg PO Q4H PRN PRN Reason: PAIN Albuterol Sulfate (Ventolin 0.083% Nebulizer Soln -) 1 amp NEB Q4H PRN PRN Reason: SHORT OF BREATH/WHEEZING Last Admin: 12/30/18 16:55 Dose: 1 amp Albuterol/Ipratropium (Duoneb -) 1 amp NEB RQID [facility] Last Admin: 12/31/18 11:01 Dose: 1 amp Diltiazem HCl (Cardizem Cd -) 240 mg PO DAILY [facility] Last Admin: 12/31/18 09:11 Dose: 240 mg Furosemide (Lasix -) 40 mg PO DAILY [facility] Last Admin: 12/31/18 09:11 Dose: 40 mg Levofloxacin (Levaquin 750 Mg Premixed Ivpb -) 750 mg in 150 mls @ 100 mls/hr IVPB DAILY [facility]; Protocol Last Admin: 12/31/18 09:11 Dose: 100 mls/hr Insulin Aspart (Novolog Vial Sliding Scale -) 1 vial SQ ACHS [facility]; Protocol Last Admin: 12/31/18 12:09 Dose: 8 units Methadone HCl 20 mg/ Methadone (HCl 5 mg/ Methadone HCl 40 mg) 65 mg PO DAILY@ 0600 [facility] Last Admin: 12/31/18 10:13 Dose: 65 mg Methylprednisolone Sodium Succinate (Solu-Medrol -) 40 mg IVPUSH Q6H-IV [facility] Last Admin: 12/31/18 08:55 Dose: 40 mg Nitroglycerin (Nitrostat -) 0.4 mg SL Q5M PRN PRN Reason: CHEST PAIN Pantoprazole Sodium (Protonix -) 40 mg PO DAILY [facility] Last Admin: 12/31/18 09:09 Dose: 40 mg Rivaroxaban (Xarelto) 20 mg PO DAILY@1800 [facility] Sotalol HCl (Betapace -) 80 mg PO BID [facility] Last Admin: 12/31/18 09:09 Dose: 80 mg Valsartan (Diovan -) 80 mg PO DAILY [facility] Last Admin: 12/31/18 09:11 Dose: 80 mg - Objective Vital Signs: Vital Signs Temperature 98.1 F 12/31/18 04:00 Pulse Rate 79 12/31/18 04:00 Respiratory Rate 18 12/31/18 04:00 Blood Pressure 146/87 12/31/18 04:00 O2 Sat by Pulse Oximetry (%) 96 12/30/18 21:00 Constitutional: Yes: Well Nourished, Calm Eyes: Yes: WNL HENT: Yes: WNL Neck: Yes: WNL Cardiovascular: Yes: Pulse Irregular, S1, S2 Respiratory: Yes: Wheezes (bilateral wheezes) Gastrointestinal: Yes: Normal Bowel Sounds, Soft Extremities: Yes: WNL Edema: No Labs: CBC, BMP 12/31/18 08:20 12/31/18 08:20 Laboratory Tests 12/30/18 16:35 ABG pH 7.42 ABG pCO2 at Pt Temp 42.8 ABG pO2 at Pt Temp 65.8 L ABG HCO3 26.9 ABG O2 Sat (Measured) 90.6 L Laboratory Tests 12/30/18 18:45 B-Natriuretic Peptide 1562.1 H - ....Imaging Cat Scan: Report Reviewed, Image Reviewed (kerry infiltrates) Problem List - Problems (1) COPD exacerbation Code(s): J44.1 - CHRONIC OBSTRUCTIVE PULMONARY DISEASE W (ACUTE) EXACERBATION (2) Shortness of breath Code(s): R06.02 - SHORTNESS OF BREATH (3) CHF (congestive heart failure) Code(s): I50.9 - HEART FAILURE, UNSPECIFIED (4) COPD (chronic obstructive pulmonary disease) Code(s): J44.9 - CHRONIC OBSTRUCTIVE PULMONARY DISEASE, UNSPECIFIED Qualifiers: COPD type: unspecified COPD Qualified Code(s): J44.9 - Chronic obstructive pulmonary disease, unspecified (5) Diabetes type 2, controlled Code(s): E11.9 - TYPE 2 DIABETES MELLITUS WITHOUT COMPLICATIONS Qualifiers: Diabetes mellitus care home insulin use: without care home use (6) Diastolic dysfunction Code(s): I51.9 - HEART DISEASE, UNSPECIFIED (7) Methadone dependence Code(s): F11.20 - OPIOID DEPENDENCE, UNCOMPLICATED (8) PNA (pneumonia) Code(s): J18.9 - PNEUMONIA, UNSPECIFIED ORGANISM Qualifiers: Pneumonia type: due to unspecified organism Laterality: unspecified laterality Lung location: unspecified part of lung Qualified Code(s): J18.9 - Pneumonia, unspecified organism (9) Pneumonia Code(s): J18.9 - PNEUMONIA, UNSPECIFIED ORGANISM (10) Acute on chronic respiratory failure with hypoxia and hypercapnia Code(s): J96.21 - ACUTE AND CHRONIC RESPIRATORY FAILURE WITH HYPOXIA; J96.22 - ACUTE AND CHRONIC RESPIRATORY FAILURE WITH HYPERCAPNIA Assessment/Plan IMP ACUTE ON CHRONIC HYPOXEMIC/HYPERCAPNEIC RESPIRATORY FAILURE COPD O2 DEPENDENT WITH ACUTE EXACERBATION PNEUMONIA AFIB CHF DM PLAN IV STEROIDS INHALED BRONCHODILATORS ABX LASIX O2 MONITOR BLOOD SUGARS AC DR PARSONS Problem List - Problems (1) COPD exacerbation Code(s): J44.1 - CHRONIC OBSTRUCTIVE PULMONARY DISEASE W (ACUTE) EXACERBATION (2) Shortness of breath Code(s): R06.02 - SHORTNESS OF BREATH (3) CHF (congestive heart failure) Code(s): I50.9 - HEART FAILURE, UNSPECIFIED (4) COPD (chronic obstructive pulmonary disease) Code(s): J44.9 - CHRONIC OBSTRUCTIVE PULMONARY DISEASE, UNSPECIFIED Qualifiers: COPD type: unspecified COPD Qualified Code(s): J44.9 - Chronic obstructive pulmonary disease, unspecified (5) Diabetes type 2, controlled Code(s): E11.9 - TYPE 2 DIABETES MELLITUS WITHOUT COMPLICATIONS Qualifiers: Diabetes mellitus long line teamster insulin use: without care home use (6) Diastolic dysfunction Code(s): I51.9 - HEART DISEASE, UNSPECIFIED (7) Methadone dependence Code(s): F11.20 - OPIOID DEPENDENCE, UNCOMPLICATED (8) PNA (pneumonia) Code(s): J18.9 - PNEUMONIA, UNSPECIFIED ORGANISM Qualifiers: Pneumonia type: due to unspecified organism Laterality: unspecified laterality Lung location: unspecified part of lung Qualified Code(s): J18.9 - Pneumonia, unspecified organism (9) Pneumonia Code(s): J18.9 - PNEUMONIA, UNSPECIFIED ORGANISM (10) Acute on chronic respiratory failure with hypoxia and hypercapnia Code(s): J96.21 - ACUTE AND CHRONIC RESPIRATORY FAILURE WITH HYPOXIA; J96.22 - ACUTE AND CHRONIC RESPIRATORY FAILURE WITH HYPERCAPNIA
--- NOTE | 2018-12-31 16:33 | EKG ---
Test Reason : Blood Pressure : / mmHG Vent. Rate : 126 BPM Atrial Rate : 133 BPM P-R Int : 000 ms QRS Dur : 074 ms QT Int : 294 ms P-R-T Axes : 000 074 166 degrees QTc Int : 425 ms POOR DATA QUALITY, INTERPRETATION MAY BE ADVERSELY AFFECTED ATRIAL FIBRILLATION WITH RAPID VENTRICULAR RESPONSE ABNORMAL ECG WHEN COMPARED WITH ECG OF 30-DEC-2018 10:07, NONSPECIFIC T WAVE ABNORMALITY HAS REPLACED INVERTED T WAVES IN INFERIOR LEADS Confirmed by NEW HDZ MD [id number]) on 12/31/2018 4:32:32 PM Referred By: Confirmed By:NEW HDZ MD
[2018-12-31] MEDS: RIVAROXABAN 20 MG TABLET PO SCH (18:08)
[2019-01-01] MEDS: methylPREDNISolone NA SUCC 40 MG/1 ML VIAL IVPUSH SCH ×4 (02:41→21:39)
[2019-01-01] MEDS ORDERED: METHADONE HCL 40 MG DISPERSABLE TABLET ONE (05:07)
[2019-01-01] MEDS ORDERED: METHADONE HCL 5 MG TABLET ONE (05:07)
[2019-01-01] MEDS ORDERED: METHADONE HCL 10 MG TABLET ONE (05:07)
[2019-01-01] MEDS: METHADONE PO SCH (05:38)
[2019-01-01] MEDS: INSULIN SLIDING SCALE (NOVOLOG) 1 VIAL SQ SCH ×4 (06:13→21:42)
[2019-01-01] MEDS: ALBUTEROL SO4 2.5/IPRATROPIUM 0.5 INH SOL 3 ML VIAL.NEB. NEB SCH ×4 (07:30→20:07)
--- NOTE | 2019-01-01 08:39 | PN ---
Physical Exam: SUBJECTIVE: Patient seen and examined at bedside this morning. No acute overnight events. He endorses exertional dyspnea with minimal ambulation from bed to restroom. OBJECTIVE: Vital Signs Period Temp Pulse Resp BP Sys/Chatterjee Pulse Ox Last 24 Hr 97.5 F-98.5 F 73-126 20-28 107-150/62-104 96-97 GENERAL: The patient is awake, alert, and fully oriented, in no acute distress. HEAD: Normocephalic, atraumatic. EYES: PERRL, extraocular movements intact, sclera anicteric, conjunctiva clear. ENT: Oropharynx clear without exudates, moist mucous membranes. NECK: Trachea midline, full range of motion, supple without lymphadenopathy LUNGS: Good inspiratory effort, and poor air entry bilaterally. Expiratory wheezes auscultated bilaterally. No accessory muscles of breathing use. HEART: Irregular rate and rhythm, S1, S2 without murmur, rub or gallop. ABDOMEN: Soft, nontender, nondistended, normoactive bowel sounds, no guarding, no rebound, no hepatosplenomegaly, no masses. EXTREMITIES: 2+ radial, dorsalis pedis pulses bilaterally, warm, well-perfused. Trace lower extremity edema, which chronic venous stasis changes bilaterally. NEUROLOGICAL: Cranial nerves II through XII grossly intact. Normal speech PSYCH: Mood and affect appropriate upon my encounter. Laboratory Results - last 24 hr 12/31/18 12/31/18 12/31/18 08:20 08:20 11:33 WBC 22.0 H RBC 5.09 Hgb 15.2 Hct 47.6 MCV 93.4 MCH 29.9 MCHC 32.0 RDW 16.7 H Plt Count 138 MPV 11.0 D Absolute Neuts (auto) 20.5 H Neutrophils % 93.0 H Neutrophils % (Manual) 88.9 H Band Neutrophils % 6.1 Lymphocytes % 2.5 L D Lymphocytes % (Manual) 2.0 L D Monocytes % 4.2 Monocytes % (Manual) 3 L D Eosinophils % 0.0 Eosinophils % (Manual) 0.0 Basophils % 0.3 Basophils % (Manual) 0.0 Myelocytes % (Man) 0 Promyelocytes % (Man) 0 Blast Cells % (Manual) 0 Nucleated RBC % 0 Metamyelocytes 0 Hypochromia 0 Platelet Estimate Decreased Polychromasia 0 Poikilocytosis 0 Anisocytosis 1+ Macrocytosis 1+ Ovalocytes 1+ Sodium 136 Potassium 4.5 Chloride 97 L Carbon Dioxide 27 Anion Gap 11 BUN 28 H Creatinine 1.0 Creat Clearance w eGFR 75.47 POC Glucometer 323 Random Glucose 237 H Calcium 9.3 Phosphorus 4.4 Magnesium 2.1 12/31/18 12/31/18 01/01/19 17:41 21:22 05:45 WBC RBC Hgb Hct MCV MCH MCHC RDW Plt Count MPV Absolute Neuts (auto) Neutrophils % Neutrophils % (Manual) Band Neutrophils % Lymphocytes % Lymphocytes % (Manual) Monocytes % Monocytes % (Manual) Eosinophils % Eosinophils % (Manual) Basophils % Basophils % (Manual) Myelocytes % (Man) Promyelocytes % (Man) Blast Cells % (Manual) Nucleated RBC % Metamyelocytes Hypochromia Platelet Estimate Polychromasia Poikilocytosis Anisocytosis Macrocytosis Ovalocytes Sodium Potassium Chloride Carbon Dioxide Anion Gap BUN Creatinine Creat Clearance w eGFR POC Glucometer 183 162 234 Random Glucose Calcium Phosphorus Magnesium Active Medications Generic Name Dose Route Start Last Admin Trade Name Freq PRN Reason Stop Dose Admin Acetaminophen 650 mg 12/30/18 14:04 Tylenol - PO Q4H PRN PAIN Albuterol Sulfate 1 amp 12/30/18 16:36 12/30/18 16:55 Ventolin 0.083% Nebulizer Soln - NEB 1 amp Q4H PRN Administration SHORT OF BREATH/WHEEZING Albuterol/Ipratropium 1 amp 12/30/18 20:00 01/01/19 07:30 Duoneb - NEB 1 amp RQID [facility] Administration Diltiazem HCl 240 mg 12/31/18 10:00 12/31/18 09:11 Cardizem Cd - PO 240 mg DAILY [facility] Administration Furosemide 40 mg 12/31/18 10:00 12/31/18 09:11 Lasix - PO 40 mg DAILY [facility] Administration Levofloxacin 750 mg in 150 mls @ 100 mls/hr 12/31/18 10:00 12/31/18 09:11 Levaquin 750 Mg Premixed Ivpb - IVPB 100 mls/hr DAILY [facility] Administration Protocol Insulin Aspart 1 vial 12/30/18 16:30 01/01/19 06:13 Novolog Vial Sliding Scale - SQ 4 units ACHS [facility] Administration Protocol Methadone HCl 20 mg/ Methadone 65 mg 12/31/18 10:00 01/01/19 05:38 HCl 5 mg/ Methadone HCl 40 mg PO 65 mg DAILY@0600 [facility] Administration Methylprednisolone Sodium Succinate 40 mg 12/30/18 17:00 01/01/19 02:41 Solu-Medrol - IVPUSH 40 mg Q6H-IV [facility] Administration Nitroglycerin 0.4 mg 12/30/18 14:00 Nitrostat - SL Q5M PRN CHEST PAIN Pantoprazole Sodium 40 mg 12/31/18 10:00 12/31/18 09:09 Protonix - PO 40 mg DAILY [facility] Administration Rivaroxaban 20 mg 12/31/18 18:00 12/31/18 18:08 Xarelto PO 20 mg DAILY@1800 [facility] Administration Sotalol HCl 80 mg 12/30/18 22:00 12/31/18 21:26 Betapace - PO 80 mg BID [facility] Administration Valsartan 80 mg 12/31/18 10:00 12/31/18 09:11 Diovan - PO 80 mg DAILY [facility] Administration ASSESSMENT/PLAN: Patient is a 63 year old male with history of HFpEF, pulmonary hypertension, Afib on Xarelto, COPD (on home oxygen 2L), non insulin dependent diabetes mellitus, opiod dependence (on methadone) presented with complaint of shortness of breath. Acute hypoxic respiratory failure secondary to COPD exacerbation vs pneumonia -Chest radiograph upon admission showed segmental right lower lobe pneumonia. Patent endorsed abrupt stop in steroid taper. -Duonebs QID standing, and Q4 hours PRN -Methylprednisone 40mg IV Q6 hours -Maintain oxygen saturation greater than 90% -Pulmonology recommendations appreciated. -Levofloxacin 750mg IV daily (day #2) CHF, diastolic -ECHO (10/2018) LV normal size, thickness, function. EF 60-65% LA mildly dilated. Trace MR. Pulmonary artery pressure at least 40mmHg. -Lasix 40mg PO daily -Valsartan 80mg PO daily -Daily weights -Strict intake output -Cardiology consult (Dr. Burns). Afib -EKG on admission showed Afib with RVR. -Cardizem CD 240mg PO daily -Sotalol 80mg PO BID -Xarelto 20mg PO daily History of opiod dependence -Methadone 65mg PO daily GERD -Protonix 40mg PO daily Diabetes mellitus -HbA1c 6.5% -Insulin sliding scale ACHS -Fingerstick blood glucose monitoring ACHS Hypertension -Patient is currently on Cardizem, and Sotalol. -Follow vital signs closely. FEN -No IV fluids indicated. -Follow CMP -Diabetic diet Prophylaxis -Patient is on Xarelto 20mg PO daily for Afib -Protonix 40mg PO daily Disposition -Continue care in medical- surgical floor Visit type - Emergency Visit Emergency Visit: Yes ED Registration Date: 12/30/18 Care time: The patient presented to the Emergency Department on the above date and was hospitalized for further evaluation of their emergent condition. - New Patient This patient is new to me today: No - Critical Care Critical Care patient: No - Discharge Referral Referred to [facility] No
--- NOTE | 2019-01-01 09:20 | EKG ---
Test Reason : Blood Pressure : / mmHG Vent. Rate : 122 BPM Atrial Rate : 117 BPM P-R Int : 000 ms QRS Dur : 070 ms QT Int : 308 ms P-R-T Axes : 000 081 214 degrees QTc Int : 438 ms POOR DATA QUALITY, INTERPRETATION MAY BE ADVERSELY AFFECTED ATRIAL FIBRILLATION WITH RAPID VENTRICULAR RESPONSE ABNORMAL ECG WHEN COMPARED WITH ECG OF 20-DEC-2018 10:14, SIGNIFICANT CHANGES HAVE OCCURRED Confirmed by WILDER RAIN, NEW ([id number]) on 01/01/2019 9:20:12 AM Referred By: Confirmed By:NEW HDZ MD
[2019-01-01] MEDS: PANTOPRAZOLE 40 MG TABLET (FP) PO SCH (10:06)
[2019-01-01] MEDS: VALSARTAN 80 MG TABLET (UD) PO SCH (10:06)
[2019-01-01] MEDS: FUROSEMIDE 40 MG TABLET (FP) PO SCH (10:06)
[2019-01-01] MEDS: SOTALOL HCL 80 MG TABLET (FP) PO SCH ×2 (10:07→21:40)
--- NOTE | 2019-01-01 12:51 | PN ---
Progress Note, Physician History of Present Illness: PULMONARY ALERT,C/O SOB,-CP - Current Medication List Current Medications: Active Medications Acetaminophen (Tylenol -) 650 mg PO Q4H PRN PRN Reason: PAIN Albuterol Sulfate (Ventolin 0.083% Nebulizer Soln -) 1 amp NEB Q4H PRN PRN Reason: SHORT OF BREATH/WHEEZING Last Admin: 12/30/18 16:55 Dose: 1 amp Albuterol/Ipratropium (Duoneb -) 1 amp NEB RQID [facility] Last Admin: 01/01/19 11:42 Dose: 1 amp Diltiazem HCl (Cardizem Cd -) 240 mg PO DAILY [facility] Last Admin: 01/01/19 10:06 Dose: 240 mg Furosemide (Lasix -) 40 mg PO DAILY [facility] Last Admin: 01/01/19 10:06 Dose: 40 mg Levofloxacin (Levaquin 750 Mg Premixed Ivpb -) 750 mg in 150 mls @ 100 mls/hr IVPB DAILY [facility]; Protocol Last Admin: 01/01/19 10:06 Dose: 100 mls/hr Insulin Aspart (Novolog Vial Sliding Scale -) 1 vial SQ ACHS [facility]; Protocol Last Admin: 01/01/19 11:45 Dose: 6 units Methadone HCl 20 mg/ Methadone (HCl 5 mg/ Methadone HCl 40 mg) 65 mg PO DAILY@ 0600 [facility] Last Admin: 01/01/19 05:38 Dose: 65 mg Methylprednisolone Sodium Succinate (Solu-Medrol -) 40 mg IVPUSH Q6H-IV [facility] Last Admin: 01/01/19 10:06 Dose: 40 mg Nitroglycerin (Nitrostat -) 0.4 mg SL Q5M PRN PRN Reason: CHEST PAIN Pantoprazole Sodium (Protonix -) 40 mg PO DAILY [facility] Last Admin: 01/01/19 10:06 Dose: 40 mg Rivaroxaban (Xarelto) 20 mg PO DAILY@1800 [facility] Last Admin: 12/31/18 18:08 Dose: 20 mg Sotalol HCl (Betapace -) 80 mg PO BID [facility] Last Admin: 01/01/19 10:07 Dose: 80 mg Valsartan (Diovan -) 80 mg PO DAILY [facility] Last Admin: 01/01/19 10:06 Dose: 80 mg - Objective Vital Signs: Vital Signs Temperature 97.5 F L 01/01/19 05:00 Pulse Rate 111 H 01/01/19 05:00 Respiratory Rate 20 01/01/19 05:00 Blood Pressure 108/65 01/01/19 05:00 O2 Sat by Pulse Oximetry (%) 96 12/31/18 21:00 Constitutional: Yes: Well Nourished, Calm Eyes: Yes: WNL HENT: Yes: WNL Neck: Yes: WNL Cardiovascular: Yes: Pulse Irregular, S1, S2 Respiratory: Yes: Rhonchi (BILATERAL WHEEZES AND RHONCHI), Wheezes Gastrointestinal: Yes: Normal Bowel Sounds, Soft Extremities: Yes: WNL Edema: No Labs: CBC, BMP 12/31/18 08:20 12/31/18 08:20 Problem List - Problems (1) COPD exacerbation Code(s): J44.1 - CHRONIC OBSTRUCTIVE PULMONARY DISEASE W (ACUTE) EXACERBATION (2) Shortness of breath Code(s): R06.02 - SHORTNESS OF BREATH (3) CHF (congestive heart failure) Code(s): I50.9 - HEART FAILURE, UNSPECIFIED (4) COPD (chronic obstructive pulmonary disease) Code(s): J44.9 - CHRONIC OBSTRUCTIVE PULMONARY DISEASE, UNSPECIFIED Qualifiers: COPD type: unspecified COPD Qualified Code(s): J44.9 - Chronic obstructive pulmonary disease, unspecified (5) Diabetes type 2, controlled Code(s): E11.9 - TYPE 2 DIABETES MELLITUS WITHOUT COMPLICATIONS Qualifiers: Diabetes mellitus termite control service representative insulin use: without termite control service representative use (6) Diastolic dysfunction Code(s): I51.9 - HEART DISEASE, UNSPECIFIED (7) Methadone dependence Code(s): F11.20 - OPIOID DEPENDENCE, UNCOMPLICATED (8) PNA (pneumonia) Code(s): J18.9 - PNEUMONIA, UNSPECIFIED ORGANISM Qualifiers: Pneumonia type: due to unspecified organism Laterality: unspecified laterality Lung location: unspecified part of lung Qualified Code(s): J18.9 - Pneumonia, unspecified organism (9) Pneumonia Code(s): J18.9 - PNEUMONIA, UNSPECIFIED ORGANISM (10) Acute on chronic respiratory failure with hypoxia and hypercapnia Code(s): J96.21 - ACUTE AND CHRONIC RESPIRATORY FAILURE WITH HYPOXIA; J96.22 - ACUTE AND CHRONIC RESPIRATORY FAILURE WITH HYPERCAPNIA Assessment/Plan IMP ACUTE ON CHRONIC HYPOXEMIC/HYPERCAPNEIC RESPIRATORY FAILURE COPD O2 DEPENDENT WITH ACUTE EXACERBATION PNEUMONIA AFIB CHF DM PLAN IV STEROIDS SAME DOSE INHALED BRONCHODILATORS ABX LASIX O2 MONITOR BLOOD SUGARS AC DR PARSONS Problem List - Problems (1) COPD exacerbation Code(s): J44.1 - CHRONIC OBSTRUCTIVE PULMONARY DISEASE W (ACUTE) EXACERBATION (2) Shortness of breath Code(s): R06.02 - SHORTNESS OF BREATH (3) CHF (congestive heart failure) Code(s): I50.9 - HEART FAILURE, UNSPECIFIED (4) COPD (chronic obstructive pulmonary disease) Code(s): J44.9 - CHRONIC OBSTRUCTIVE PULMONARY DISEASE, UNSPECIFIED Qualifiers: COPD type: unspecified COPD Qualified Code(s): J44.9 - Chronic obstructive pulmonary disease, unspecified (5) Diabetes type 2, controlled Code(s): E11.9 - TYPE 2 DIABETES MELLITUS WITHOUT COMPLICATIONS Qualifiers: Diabetes mellitus termite control service representative insulin use: without termite control service representative use (6) Diastolic dysfunction Code(s): I51.9 - HEART DISEASE, UNSPECIFIED (7) Methadone dependence Code(s): F11.20 - OPIOID DEPENDENCE, UNCOMPLICATED (8) PNA (pneumonia) Code(s): J18.9 - PNEUMONIA, UNSPECIFIED ORGANISM Qualifiers: Pneumonia type: due to unspecified organism Laterality: unspecified laterality Lung location: unspecified part of lung Qualified Code(s): J18.9 - Pneumonia, unspecified organism (9) Pneumonia Code(s): J18.9 - PNEUMONIA, UNSPECIFIED ORGANISM (10) Acute on chronic respiratory failure with hypoxia and hypercapnia Code(s): J96.21 - ACUTE AND CHRONIC RESPIRATORY FAILURE WITH HYPOXIA; J96.22 - ACUTE AND CHRONIC RESPIRATORY FAILURE WITH HYPERCAPNIA
--- NOTE | 2019-01-01 14:11 | PN ---
Teaching Attending Note Name of Resident: Montrell Zapien ATTENDING PHYSICIAN STATEMENT I saw and evaluated the patient. I reviewed the resident's note and discussed the case with the resident. I agree with the resident's findings and plan as documented. SUBJECTIVE: OBJECTIVE: PERRLA S1 and s2 irregularly irregular abdomen soft non-tender diffuse wheezing heard patient is lying comfortably in bed not in acute distress ASSESSMENT AND PLAN: Patient is a 63 year old male with history of HFpEF, pulmonary hypertension, Afib on Xarelto, COPD (on home oxygen 2L), non insulin dependent diabetes mellitus, opiod dependence (on methadone) presented with complaint of shortness of breath. Acute hypoxic respiratory failure secondary to COPD exacerbation -Chest radiograph shows no acute infiltrates -Duonebs QID standing -Methylprednisone 40mg IV Q6 hours -Maintain oxygen saturation greater than 90% -Pulmonology recommendations appreciated. CHF, diastolic -ECHO (10/2018) LV normal size, thickness, function. EF 60-65% LA mildly dilated. Trace MR. Pulmonary artery pressure at least 40mmHg. -Lasix 40mg PO daily -Daily weights -Strict intake output -Cardiology consult (Dr. Burns) Afib -EKG on admission showed Afib with RVR. - diltiazemn SR 240mg PO daily -Sotalol 80mg PO BID -rivaroxiban 20mg PO daily - consider NST when the patient is not wheezing or acute COPD exacerbation History of opiod dependence -Methadone 65mg PO daily GERD -Protonix 40mg PO daily Diabetes mellitus -HbA1c 6.5% -Insulin sliding scale ACHS -Fingerstick blood glucose monitoring ACHS Hypertension -Patient is currently on Cardizem, and Sotalol. -Follow vital signs closely.
[2019-01-01] MEDS: RIVAROXABAN 20 MG TABLET PO SCH (17:24)
[2019-01-02] MEDS: methylPREDNISolone NA SUCC 40 MG/1 ML VIAL IVPUSH SCH ×2 (03:14→08:18)
[2019-01-02] MEDS ORDERED: METHADONE HCL 5 MG TABLET ONE (04:55)
[2019-01-02] MEDS ORDERED: METHADONE HCL 10 MG TABLET ONE (04:56)
[2019-01-02] MEDS ORDERED: METHADONE HCL 40 MG DISPERSABLE TABLET ONE (04:56)
[2019-01-02] MEDS: METHADONE PO SCH (05:28)
[2019-01-02] MEDS: INSULIN SLIDING SCALE (NOVOLOG) 1 VIAL SQ SCH ×4 (06:02→21:14)
[2019-01-02] MEDS: ALBUTEROL SO4 2.5/IPRATROPIUM 0.5 INH SOL 3 ML VIAL.NEB. NEB SCH ×4 (07:20→20:17)
[2019-01-02 07:50] LABS: HEMATOCRIT 41.4 % (35.4-49); HEMOGLOBIN 13.2 GM/dL (11.7-16.9); MCH 29.9 pg (25.7-33.7); MCHC 31.9 g/dl (32.0-35.9); MEAN CELL VOLUME 93.7 fl (80-96); MEAN PLT VOLUME 11.2 fl (7.5-11.1); PLATELET COUNT 120 K/MM3 (134-434); RBC 4.42 M/mm3 (4.00-5.60); RDW 16.2 % (11.9-15.9); WHITE BLOOD COUNT 15.1 K/mm3 (4.0-10.0)
[2019-01-02 07:52] LABS: ALBUMIN 2.6 g/dl (3.4-5.0); ALK PHOS 94 U/L (45-117); ANION GAP 8 MMOL/L (8-16); BILIRUBIN,TOTAL 0.8 mg/dL (0.2-1); BLOOD UREA NITROGEN 52 mg/dL (7-18); CALCIUM 8.8 mg/dL (8.5-10.1); CHLORIDE 96 mmol/L (98-107); CO2 32 mmol/L (21-32); CREATININE 1.3 mg/dL (0.55-1.3); GLUCOSE,RANDOM 262 mg/dL (74-106); POTASSIUM 4.5 mmol/L (3.5-5.1); SGOT/AST 19 U/L (15-37); SGPT/ALT 24 U/L (13-61); SODIUM 135 mmol/L (136-145); TOT PROT 5.6 g/dl (6.4-8.2)
[2019-01-02] MEDS ORDERED: MAGNESIUM OXIDE 400 MG TABLET (FP) PO ONE (08:30)
--- NOTE | 2019-01-02 08:36 | PN ---
Physical Exam: SUBJECTIVE: Patient seen and examined at bedside- no acute events overnight; patient states that he is still dyspneic when doing little things such as going to the bathroom etc howwever feels that his breathing is improving; denies chest pains; nausea/vomiting however endorses constipation OBJECTIVE: Vital Signs Period Temp Pulse Resp BP Sys/Chatterjee Pulse Ox Last 24 Hr 97.3 F-98.3 F 83-106 20-20 110-155/52-87 97-100 GENERAL: The patient is awake, alert, slightly dyspneic on nasal canula EYES: PEERLA: EOMI; no scleral icterus . NECK: no JVD: no lymphadenopathy. LUNGS: coarse breath sounds B/L. HEART: Regular rate and rhythm, S1, S2 without murmur, rub or gallop. ABDOMEN: Soft, slightly distended; + BS EXTREMITIES: 2+ pulses, warm, well-perfused, 1+ edema B/L. NEUROLOGICAL: Cranial nerves II through XII grossly intact. Normal speech, gait not observed. PSYCH: Normal mood, normal affect. SKIN: Warm, dry, normal turgor, no rashes or lesions noted Laboratory Results - last 24 hr 01/01/19 01/01/19 01/01/19 11:42 16:37 21:41 Sodium Potassium Chloride Carbon Dioxide Anion Gap BUN Creatinine Creat Clearance w eGFR POC Glucometer 296 149 183 Random Glucose Calcium Total Bilirubin AST ALT Alkaline Phosphatase Total Protein Albumin 01/02/19 01/02/19 01/02/19 02:18 05:39 06:48 Sodium 135 L Potassium 4.5 Chloride 96 L Carbon Dioxide 32 Anion Gap 8 BUN 52 H Creatinine 1.3 Creat Clearance w eGFR 55.75 POC Glucometer 218 250 Random Glucose 262 H Calcium 8.8 Total Bilirubin 0.8 AST 19 ALT 24 Alkaline Phosphatase 94 Total Protein 5.6 L Albumin 2.6 L Active Medications Generic Name Dose Route Start Last Admin Trade Name Freq PRN Reason Stop Dose Admin Acetaminophen 650 mg 12/30/18 14:04 Tylenol - PO Q4H PRN PAIN Albuterol Sulfate 1 amp 12/30/18 16:36 12/30/18 16:55 Ventolin 0.083% Nebulizer Soln - NEB 1 amp Q4H PRN Administration SHORT OF BREATH/WHEEZING Albuterol/Ipratropium 1 amp 12/30/18 20:00 01/02/19 07:20 Duoneb - NEB 1 amp RQID DOMINIC Administration Diltiazem HCl 240 mg 12/31/18 10:00 01/01/19 10:06 Cardizem Cd - PO 240 mg DAILY DOMINIC Administration Furosemide 40 mg 12/31/18 10:00 01/01/19 10:06 Lasix - PO 40 mg DAILY DOMINIC Administration Levofloxacin 750 mg in 150 mls @ 100 mls/hr 12/31/18 10:00 01/01/19 10:06 Levaquin 750 Mg Premixed Ivpb - IVPB 100 mls/hr DAILY DOMINIC Administration Protocol Insulin Aspart 1 vial 12/30/18 16:30 01/02/19 06:02 Novolog Vial Sliding Scale - SQ 4 units ACHS DOMINIC Administration Protocol Melatonin 5 mg 01/02/19 08:17 Melatonin PO HS PRN INSOMNIA Methadone HCl 20 mg/ Methadone 65 mg 12/31/18 10:00 01/02/19 05:28 HCl 5 mg/ Methadone HCl 40 mg PO 65 mg DAILY@0600 DOMINIC Administration Methylprednisolone Sodium Succinate 40 mg 12/30/18 17:00 01/02/19 08:18 Solu-Medrol - IVPUSH 40 mg Q6H-IV DOMINIC Administration Nitroglycerin 0.4 mg 12/30/18 14:00 Nitrostat - SL Q5M PRN CHEST PAIN Pantoprazole Sodium 40 mg 12/31/18 10:00 01/01/19 10:06 Protonix - PO 40 mg DAILY [facility]INIC Administration Rivaroxaban 20 mg 12/31/18 18:00 01/01/19 17:24 Xarelto PO 20 mg DAILY@1800 [facility]IC Administration Sotalol HCl 80 mg 12/30/18 22:00 01/01/19 21:40 Betapace - PO 80 mg BID DOMINIC Administration Valsartan 80 mg 12/31/18 10:00 01/01/19 10:06 Diovan - PO 80 mg DAILY DOMINIC Administration ASSESSMENT/PLAN: Patient is a 63 year old male with history of HFpEF, pulmonary hypertension, Afib on Xarelto, COPD (on home oxygen 2L), non insulin dependent diabetes mellitus, opiod dependence (on methadone) presented with complaint of shortness of breath. Acute hypoxic respiratory failure secondary to COPD exacerbation vs pneumonia -Chest radiograph upon admission showed segmental right lower lobe pneumonia. Patent endorsed abrupt stop in steroid taper. -Duonebs QID standing, and Q4 hours PRN -Prednisone 60 daily -Maintain oxygen saturation greater than 90% -Pulmonology recommendations appreciated. -d/c antibiotics CHF, diastolic -ECHO (10/2018) LV normal size, thickness, function. EF 60-65% LA mildly dilated. Trace MR. Pulmonary artery pressure at least 40mmHg. -Lasix 40mg PO daily -Valsartan 80mg PO daily -Daily weights -Strict intake output -Dr Burns on board- patient will need ischemic workup done as an outpatient was medically stable Afib -EKG on admission showed Afib with RVR. -Cardizem CD 240mg PO daily -Sotalol 80mg PO BID -Xarelto 20mg PO daily History of opiod dependence -Methadone 65mg PO daily GERD -Protonix 40mg PO daily Diabetes mellitus -HbA1c 6.5% -Insulin sliding scale ACHS -Fingerstick blood glucose monitoring ACHS Hypertension -Patient is currently on Cardizem, and Sotalol. -Follow vital signs closely. FEN -No IV fluids indicated. -Follow CMP -Diabetic diet Prophylaxis -Patient is on Xarelto 20mg PO daily for Afib -Protonix 40mg PO daily Disposition -Continue care in medical- surgical floor Problem List - Problems (1) Acute on chronic respiratory failure with hypoxia and hypercapnia Code(s): J96.21 - ACUTE AND CHRONIC RESPIRATORY FAILURE WITH HYPOXIA; J96.22 - ACUTE AND CHRONIC RESPIRATORY FAILURE WITH HYPERCAPNIA (2) COPD exacerbation Code(s): J44.1 - CHRONIC OBSTRUCTIVE PULMONARY DISEASE W (ACUTE) EXACERBATION (3) Shortness of breath Code(s): R06.02 - SHORTNESS OF BREATH (4) Atrial fibrillation with rapid ventricular response Code(s): I48.91 - UNSPECIFIED ATRIAL FIBRILLATION Visit type - Emergency Visit Emergency Visit: Yes ED Registration Date: 12/30/18 Care time: The patient presented to the Emergency Department on the above date and was hospitalized for further evaluation of their emergent condition. - New Patient This patient is new to me today: Yes Date on this admission: 01/02/19 - Critical Care Critical Care patient: No
[2019-01-02] MEDS: SOTALOL HCL 80 MG TABLET (FP) PO SCH ×2 (09:20→21:15)
[2019-01-02] MEDS: VALSARTAN 80 MG TABLET (UD) PO SCH (09:20)
[2019-01-02] MEDS: PANTOPRAZOLE 40 MG TABLET (FP) PO SCH (09:20)
[2019-01-02] MEDS: FUROSEMIDE 40 MG TABLET (FP) PO SCH (09:20)
[2019-01-02] MEDS ORDERED: methylPREDNISolone NA SUCC 40 MG/1 ML VIAL IVPUSH SCH (10:24)
--- NOTE | 2019-01-02 10:24 | PN ---
Progress Note (short form) - Note Progress Note: PULMONARY States breathing was better yesterday. +chest tightness. +nonproductive cough. No fevers or chills. Vital Signs Period Temp Pulse Resp BP Sys/Chatterjee Pulse Ox Last 24 Hr 97.3 F-98.3 F 64-106 20-20 117-155/52-87 97-100 Gen: mildly tachypneic with speaking Heart: RRR Lung: poor air movement Abd: soft, nontender Ext: no edema CBC, BMP 01/02/19 06:48 01/02/19 06:48 Active Medications Acetaminophen (Tylenol -) 650 mg PO Q4H PRN PRN Reason: PAIN Albuterol Sulfate (Ventolin 0.083% Nebulizer Soln -) 1 amp NEB Q4H PRN PRN Reason: SHORT OF BREATH/WHEEZING Last Admin: 12/30/18 16:55 Dose: 1 amp Albuterol/Ipratropium (Duoneb -) 1 amp NEB RQID [facility] Last Admin: 01/02/19 07:20 Dose: 1 amp Diltiazem HCl (Cardizem Cd -) 240 mg PO DAILY [facility] Last Admin: 01/02/19 09:20 Dose: 240 mg Furosemide (Lasix -) 40 mg PO DAILY [facility] Last Admin: 01/02/19 09:20 Dose: 40 mg Levofloxacin (Levaquin 750 Mg Premixed Ivpb -) 750 mg in 150 mls @ 100 mls/hr IVPB DAILY [facility]; Protocol Last Admin: 01/02/19 09:19 Dose: 100 mls/hr Insulin Aspart (Novolog Vial Sliding Scale -) 1 vial SQ ACHS [facility]; Protocol Last Admin: 01/02/19 06:02 Dose: 4 units Melatonin (Melatonin) 5 mg PO HS PRN PRN Reason: INSOMNIA Methadone HCl 20 mg/ Methadone (HCl 5 mg/ Methadone HCl 40 mg) 65 mg PO DAILY@ 0600 [facility] Last Admin: 01/02/19 05:28 Dose: 65 mg Methylprednisolone Sodium Succinate (Solu-Medrol -) 40 mg IVPUSH Q6H-IV [facility] Last Admin: 01/02/19 08:18 Dose: 40 mg Nitroglycerin (Nitrostat -) 0.4 mg SL Q5M PRN PRN Reason: CHEST PAIN Pantoprazole Sodium (Protonix -) 40 mg PO DAILY [facility] Last Admin: 01/02/19 09:20 Dose: 40 mg Rivaroxaban (Xarelto) 20 mg PO DAILY@1800 [facility] Last Admin: 01/01/19 17:24 Dose: 20 mg Sotalol HCl (Betapace -) 80 mg PO BID [facility] Last Admin: 01/02/19 09:20 Dose: 80 mg Valsartan (Diovan -) 80 mg PO DAILY [facility] Last Admin: 01/02/19 09:20 Dose: 80 mg A/P Acute on Chronic Hypoxic and Hypercapneic Respiratory Failure Acute COPD Exacerbation Pneumonia Atrial Fibrillation Pulmonary HTN DM - will increase medrol to 60mg q6h - inhaled bronchodilators standing and PRN - O2 to keep SpO2 >90% - continue antibiotics - rate control - continue anticoagulation - glucose control while on systemic steroids
--- NOTE | 2019-01-02 12:04 | CON.CARD ---
Consult Consult Specialty:: Cardiology Referred by:: Hospitalist Medicine Reason for Consultation:: PAF with RVR - History of Present Illness Chief Complaint: Dyspnea History of Present Illness: Patient is a 63 year old male with underlying history of atrial fibrillation on NOAC (Eliquis), diastolic heart failure, hypertension, COPD on 2L home O2, hyperlipidemia, PAD with history of venous ulceration, opioid dependence (on Methadone for previous Heroine use), PAD s/p aorto-bifemoral bypass presented again with worsening shortness of breath on exertion and productive cough productive of green sputum and rapid afib. He denies palpitations, near or true syncope, chest pain, LE edema, paroxysmal nocturnal dyspnea or orthopnea. Recent d/c 12/24 for same, self dced oral steroids due to hyperglycemia. - History Source History Provided By: Patient Limitations to Obtaining History: No Limitations - Past Medical History Cardio/Vascular: Yes: AFIB, CHF, HTN, Hyperlipdemia Pulmonary: Yes: COPD, O2 Dependent Psych: Yes: Addictions (opiates now on methadone), Depression Endocrine: Yes: Diabetes Mellitus - Past Surgical History Past Surgical History: Yes: Bypass (Abdominal aorta) - Alcohol/Substance Use Hx Alcohol Use: No History of Substance Use: reports: Heroin - Smoking History Smoking history: Former smoker Have you smoked in the past 12 months: No Aproximately how many cigarettes per day: 0 If you are a former smoker, when did you quit?: 2016 - Social History Usual Living Arrangement: Alone ADL: Independent History of Recent Travel: No Home Medications - Allergies Allergies/Adverse Reactions: Allergies Allergy/AdvReac Type Severity Reaction Status Date / Time Penicillins Allergy "rash" Verified 12/30/18 10:17 - Home Medications Home Medications: Ambulatory Orders Methadone [Dolophine -] 65 mg PO DAILY 09/25/17 Rivaroxaban [Xarelto -] 20 mg PO DAILY 09/25/17 metFORMIN HCL [Glucophage -] 500 mg PO BID 09/25/17 Albuterol Sulfate Inhaler - [Ventolin HFA Inhaler -] 1 - 2 inh PO QID PRN #1 inhaler 01/26/18 Furosemide [Lasix -] 40 mg PO DAILY #30 tablet 11/14/18 Budesonide/Formeterol Fumarate [SYMBICORT 160/4.5mcg -] 2 puff IH BID #7 inhaler 12/10/18 Pantoprazole Sodium [Protonix -] 40 mg PO DAILY #30 tablet.ec 12/10/18 Diltiazem Cd [Cardizem Cd -] 240 mg PO DAILY 30 Days #30 cap.cd.24h 12/24/18 Nitroglycerin 0.4 mg SL PRN 7 Days #7 tab.subl 12/24/18 Prednisone See Taper PO ASDIR 20 Days #32 tablet 12/24/18 Sotalol HCl [Betapace -] 80 mg PO BID 30 Days #60 tablet 12/24/18 Valsartan [Diovan] 80 mg PO DAILY 30 Days #30 tablet 12/24/18 Family Disease History - Family Disease History Family Disease History: Heart Disease: Father ([place]), CA: Sister (Cervical CA) Review of Systems - Review of Systems Respiratory: reports: Cough, SOB, SOB on Exertion Vital Signs: Vital Signs Temperature 97.7 F 01/02/19 09:48 Pulse Rate 64 01/02/19 09:48 Respiratory Rate 20 01/02/19 09:48 Blood Pressure 134/70 01/02/19 09:48 O2 Sat by Pulse Oximetry (%) 97 01/02/19 09:00 Constitutional: Yes: No Distress, Calm, Thin Neck: Yes: Supple Respiratory: Yes: Regular, Diminished, On Nasal O2 Gastrointestinal: Yes: Soft, Hypoactive Bowel Sounds Cardiovascular: Yes: Regular Rate and Rhythm JVD: No Carotid Bruit: No Heart Sounds: Yes: S1, S2 Murmur: Yes: Systolic Murmur, Grade 1 Edema: No - Other Data Labs, Other Data: CBC, BMP 01/02/19 06:48 01/02/19 06:48 Afib @ 126 Ejection Fraction %: LVEF > or = 40 % Imaging - Results Chest X-ray: Report Reviewed (RLL PNA improved) Cat Scan: Report Reviewed (Multifocal bilateral infiltrates) Problem List - Problems (1) Acute on chronic respiratory failure with hypoxia and hypercapnia Code(s): J96.21 - ACUTE AND CHRONIC RESPIRATORY FAILURE WITH HYPOXIA; J96.22 - ACUTE AND CHRONIC RESPIRATORY FAILURE WITH HYPERCAPNIA (2) COPD exacerbation Code(s): J44.1 - CHRONIC OBSTRUCTIVE PULMONARY DISEASE W (ACUTE) EXACERBATION (3) Pneumonia Code(s): J18.9 - PNEUMONIA, UNSPECIFIED ORGANISM Qualifiers: Pneumonia type: due to unspecified organism Laterality: bilateral Lung location: unspecified part of lung Qualified Code(s): J18.9 - Pneumonia, unspecified organism (4) Shortness of breath Code(s): R06.02 - SHORTNESS OF BREATH (5) CHF (congestive heart failure) Code(s): I50.9 - HEART FAILURE, UNSPECIFIED (6) Diabetes type 2, controlled Code(s): E11.9 - TYPE 2 DIABETES MELLITUS WITHOUT COMPLICATIONS Qualifiers: Diabetes mellitus penitentiary insulin use: without joint terminal attack controller use (7) Methadone dependence Code(s): F11.20 - OPIOID DEPENDENCE, UNCOMPLICATED (8) PAD (peripheral artery disease) Code(s): I73.9 - PERIPHERAL VASCULAR DISEASE, UNSPECIFIED (9) Paroxysmal atrial fibrillation Code(s): I48.0 - PAROXYSMAL ATRIAL FIBRILLATION (10) PNA (pneumonia) Code(s): J18.9 - PNEUMONIA, UNSPECIFIED ORGANISM Qualifiers: Pneumonia type: due to unspecified organism Laterality: unspecified laterality Lung location: unspecified part of lung Qualified Code(s): J18.9 - Pneumonia, unspecified organism (11) S/P aorto-bifemoral bypass surgery Code(s): Z95.828 - PRESENCE OF OTHER VASCULAR IMPLANTS AND GRAFTS Assessment/Plan 11/14/2018 Echo: Normal LV size and fxn LVEF 60-65%, normal RV size and fxn, mild LAE, RVSP 40 mmHg 12/23/2016 P-Myoview: Small size, mild inferior ischemia LVEF 71% 1. Acute on Chronic Hypoxic and Hypercapneic Respiratory Failure 2. Acute COPD Exacerbation, PNA 3. Paroxysmal atrial fibrillation/atrial flutter recurrent arrhythmia with RVR [id number] score of 4, on DOAC's/Xarelto with recurrence 4. CAD/CAC- coronary artery calcification/CT scan chest dated 12/23/16 abnormal MPI study demand ischemic injury angina pectoris, chest pain syndrome with recurrent arrhythmia as noted above 5. Acute on chronic class I-II NYHA classification LV diastolic failure 6. HTN 7. DM 8. Hypercholesterolemia 9. 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 Prior history of substance abuse/Opioid dependence currently on Methadone treatment PLAN: 1. IV steroids with GI protection, BD, O2 to keep SpO2 >90%, complete abx course 2. Continue Xarelto 20 qd 3. Continue Cardizem CD 240 qd, hemodynamics permitting, additional IV Cardizem to assist with rate control 4. Continue Diovan 80 qd, hemodynamics permitting as renal function at baseline 5. Continue Betapace 80 bid with caution and close monitoring of QTc interval/ EKG's noted 6. Continue diuretics Lasix 40 qd 7. Thank you for consultative opportunity
[2019-01-02] MEDS: predniSONE 20 MG TABLET (UD) PO SCH (13:53)
[2019-01-02] MEDS ORDERED: DOCUSATE SODIUM 100 MG CAPSULE (FP) PO PRN (14:57)
--- NOTE | 2019-01-02 17:03 | PN ---
Teaching Attending Note Name of Resident: Lizett Washington ATTENDING PHYSICIAN STATEMENT I saw and evaluated the patient. I reviewed the resident's note and discussed the case with the resident. I agree with the resident's findings and plan as documented. SUBJECTIVE: Still feels SOB - no chest pain/palpitations. No fever/chills. OBJECTIVE: Afebrile, Hemodynamically Stable. Last Vital Signs Temp Pulse Resp BP Pulse Ox 97.8 F 100 H 20 121/83 97 01/02/19 14:28 01/02/19 14:28 01/02/19 14:28 01/02/19 14:28 01/02/19 09:00 HEENT - Atraumatic, Normocephalic. Heart - S1, S2, irregular Lungs - decreased air entry, occassional wheeze. Abdomen - Soft, non-tender. Bowel Sounds normal. Extremities - mild edema, no calf tenderness, excoriation hastings LLE. Neuro - AAO x 3. Tone/Power normal all 4 extremities. Laboratory Results - last 24 hr 01/01/19 01/02/19 01/02/19 21:41 02:18 05:39 WBC RBC Hgb Hct MCV MCH MCHC RDW Plt Count MPV Sodium Potassium Chloride Carbon Dioxide Anion Gap BUN Creatinine Creat Clearance w eGFR POC Glucometer 183 218 250 Random Glucose Calcium Total Bilirubin AST ALT Alkaline Phosphatase Total Protein Albumin 01/02/19 01/02/19 01/02/19 06:48 06:48 11:06 WBC 15.1 H RBC 4.42 Hgb 13.2 Hct 41.4 MCV 93.7 MCH 29.9 MCHC 31.9 L RDW 16.2 H Plt Count 120 L MPV 11.2 H Sodium 135 L Potassium 4.5 Chloride 96 L Carbon Dioxide 32 Anion Gap 8 BUN 52 H Creatinine 1.3 Creat Clearance w eGFR 55.75 POC Glucometer 296 Random Glucose 262 H Calcium 8.8 Total Bilirubin 0.8 AST 19 ALT 24 Alkaline Phosphatase 94 Total Protein 5.6 L Albumin 2.6 L 01/02/19 16:22 WBC RBC Hgb Hct MCV MCH MCHC RDW Plt Count MPV Sodium Potassium Chloride Carbon Dioxide Anion Gap BUN Creatinine Creat Clearance w eGFR POC Glucometer 277 Random Glucose Calcium Total Bilirubin AST ALT Alkaline Phosphatase Total Protein Albumin Current Medications Generic Name Dose Route Start Last Admin Trade Name Freq PRN Reason Stop Dose Admin Acetaminophen 650 mg 12/30/18 14:04 Tylenol - PO Q4H PRN PAIN Albuterol Sulfate 1 amp 12/30/18 16:36 12/30/18 16:55 Ventolin 0.083% Nebulizer Soln - NEB 1 amp Q4H PRN Administration SHORT OF BREATH/WHEEZING Albuterol/Ipratropium 1 amp 12/30/18 20:00 01/02/19 16:09 Duoneb - NEB 1 amp RQID [facility]INIC Administration Diltiazem HCl 240 mg 12/31/18 10:00 01/02/19 09:20 Cardizem Cd - PO 240 mg DAILY [facility]IC Administration Docusate Sodium 100 mg 01/02/19 14:57 01/02/19 15:10 Colace - PO 100 mg BID PRN Administration CONSTIPATION Furosemide 40 mg 12/31/18 10:00 01/02/19 09:20 Lasix - PO 40 mg DAILY [facility]INIC Administration Insulin Aspart 1 vial 12/30/18 16:30 01/02/19 16:23 Novolog Vial Sliding Scale - SQ 6 units ACHS [facility]INIC Administration Protocol Melatonin 5 mg 01/02/19 08:17 Melatonin PO HS PRN INSOMNIA Methadone HCl 20 mg/ Methadone 65 mg 12/31/18 10:00 01/02/19 05:28 HCl 5 mg/ Methadone HCl 40 mg PO 65 mg DAILY@0600 [facility]IC Administration Nitroglycerin 0.4 mg 12/30/18 14:00 Nitrostat - SL Q5M PRN CHEST PAIN Pantoprazole Sodium 40 mg 12/31/18 10:00 01/02/19 09:20 Protonix - PO 40 mg DAILY [facility]IC Administration Prednisone 60 mg 01/02/19 13:45 01/02/19 13:53 Deltasone - PO Not Given DAILY [facility] Rivaroxaban 20 mg 12/31/18 18:00 01/01/19 17:24 Xarelto PO 20 mg DAILY@1800 DOMINIC Administration Sotalol HCl 80 mg 12/30/18 22:00 01/02/19 09:20 Betapace - PO 80 mg BID [facility]IC Administration Valsartan 80 mg 12/31/18 10:00 01/02/19 09:20 Diovan - PO 80 mg DAILY [facility]IC Administration Home Medications Medication Instructions Recorded Methadone [Dolophine -] 65 mg PO DAILY 09/25/17 Rivaroxaban [Xarelto -] 20 mg PO DAILY 09/25/17 metFORMIN HCL [Glucophage -] 500 mg PO BID 09/25/17 Albuterol Sulfate Inhaler - 1 - 2 inh PO QID PRN #1 inhaler 01/26/18 [Ventolin HFA Inhaler -] Furosemide [Lasix -] 40 mg PO DAILY #30 tablet 11/14/18 Budesonide/Formeterol Fumarate 2 puff IH BID #7 inhaler 12/10/18 [SYMBICORT 160/4.5mcg -] Pantoprazole Sodium [Protonix -] 40 mg PO DAILY #30 tablet.ec 12/10/18 Diltiazem Cd [Cardizem Cd -] 240 mg PO DAILY 30 Days #30 12/24/18 cap.cd.24h Nitroglycerin 0.4 mg SL PRN 7 Days #7 tab.subl 12/24/18 Prednisone See Taper PO ASDIR 20 Days #32 12/24/18 tablet Sotalol HCl [Betapace -] 80 mg PO BID 30 Days #60 tablet 12/24/18 Valsartan [Diovan] 80 mg PO DAILY 30 Days #30 tablet 12/24/18 ASSESSMENT AND PLAN: 63 year old Male with history of chronic diastolic heart failure, HTN, Paroxysmal Atrial Fibrillation on Xarelto, chronic hypoxic respiratory failure sec to COPD (on 2L O2), Pulmonary HTN, DM 2, PAD 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 1. Acute on Chronic Hypoxic Respiratory Failure secondary to Acute Exacerbation of COPD - secondary to premature stopping of steroid course. CXR - no infiltrate Continue DuoNeb, Solumedrol Pulmonary following. Leukocytosis sec to Steroids. PFTs as out-patient with Pulm follow up. 2. Paroxysmal Atrial Fibrillation with RVR Rate well controlled on Sotalol 80 bid and Cardizem 240mg. Continue Sotalol, Cardizem and Xarelto. Cardiology follow up on discharge. 3. CAD with prior Troponin egression secondary to likely demand ischemia NM Stress 12/14 - Mild inferior ischemia. Cardiology evaluated - further testing/investigations as per Cardio. Continue BB, TIFFANIE-I, Nitro prn. 4. Chronic diastolic heart failure - Stable. Continue Lasix. 5. DM 2 - maintain on Novolog sliding scale. 6. Opioid dependence/Hx substance abuse - Continue methadone maintenance 7. Pulmonary HTN - on Home O2. 8. GERD - continue PPI. 9. HTN - Continue Sotalol, Cardizem, Diovan DVT Px - on Xarelto
[2019-01-02] MEDS: RIVAROXABAN 20 MG TABLET PO SCH (17:06)
[2019-01-03] MEDS ORDERED: ZOLPIDEM TARTRATE 5 MG TABLET PO ONE (02:32)
[2019-01-03] MEDS ORDERED: METHADONE HCL 5 MG TABLET ONE (05:21)
[2019-01-03] MEDS ORDERED: METHADONE HCL 40 MG DISPERSABLE TABLET ONE (05:22)
[2019-01-03] MEDS ORDERED: METHADONE HCL 10 MG TABLET ONE (05:22)
[2019-01-03] MEDS: METHADONE PO SCH (05:41)
[2019-01-03] MEDS: INSULIN SLIDING SCALE (NOVOLOG) 1 VIAL SQ SCH ×4 (06:23→21:23)
[2019-01-03 07:33] LABS: HEMATOCRIT 40.2 % (35.4-49); HEMOGLOBIN 12.9 GM/dL (11.7-16.9); MCH 29.9 pg (25.7-33.7); MCHC 32.1 g/dl (32.0-35.9); MEAN CELL VOLUME 93.1 fl (80-96); MEAN PLT VOLUME 9.9 fl (7.5-11.1); PLATELET COUNT 134 K/MM3 (134-434); RBC 4.32 M/mm3 (4.00-5.60); RDW 16.4 % (11.9-15.9); WHITE BLOOD COUNT 13.7 K/mm3 (4.0-10.0)
[2019-01-03] MEDS: ALBUTEROL SO4 2.5/IPRATROPIUM 0.5 INH SOL 3 ML VIAL.NEB. NEB SCH ×4 (07:56→20:27)
[2019-01-03 08:20] LABS: ALBUMIN 2.5 g/dl (3.4-5.0); ALK PHOS 95 U/L (45-117); ANION GAP 6 MMOL/L (8-16); BILIRUBIN,TOTAL 0.3 mg/dL (0.2-1); BLOOD UREA NITROGEN 42 mg/dL (7-18); CALCIUM 8.9 mg/dL (8.5-10.1); CHLORIDE 98 mmol/L (98-107); CO2 34 mmol/L (21-32); GLUCOSE,RANDOM 189 mg/dL (74-106); MAGNESIUM 2.5 mg/dL (1.8-2.4); PHOSPHOROUS 2.8 mg/dL (2.5-4.9); POTASSIUM 4.4 mmol/L (3.5-5.1); SGOT/AST 18 U/L (15-37); SGPT/ALT 23 U/L (13-61); SODIUM 138 mmol/L (136-145); TOT PROT 5.7 g/dl (6.4-8.2)
[2019-01-03] MEDS: SOTALOL HCL 80 MG TABLET (FP) PO SCH ×2 (09:33→21:19)
[2019-01-03] MEDS: FUROSEMIDE 40 MG TABLET (FP) PO SCH (09:33)
[2019-01-03] MEDS: SENNOSIDES 8.6MG TABLET (FP) PO SCH ×2 (09:33→21:23)
[2019-01-03] MEDS: VALSARTAN 80 MG TABLET (UD) PO SCH (09:33)
[2019-01-03] MEDS: PANTOPRAZOLE 40 MG TABLET (FP) PO SCH (09:33)
[2019-01-03] MEDS: predniSONE 20 MG TABLET (UD) PO SCH (09:33)
--- NOTE | 2019-01-03 10:44 | PN ---
Progress Note (short form) - Note Progress Note: PULMONARY Feels better today, less short of breath. +nonproductive cough. No fevers or chills. Vital Signs Period Temp Pulse Resp BP Sys/Chatterjee Pulse Ox Last 24 Hr 97.6 F-98.4 F 78-102 18-20 98-129/66-83 98-100 Gen: less tachypneic with speaking Heart: RRR Lung: poor air movement, scattered wheeze Abd: soft, nontender Ext: no edema CBC, BMP 01/03/19 07:15 01/03/19 07:15 Active Medications Acetaminophen (Tylenol -) 650 mg PO Q4H PRN PRN Reason: PAIN Albuterol Sulfate (Ventolin 0.083% Nebulizer Soln -) 1 amp NEB Q4H PRN PRN Reason: SHORT OF BREATH/WHEEZING Last Admin: 12/30/18 16:55 Dose: 1 amp Albuterol/Ipratropium (Duoneb -) 1 amp NEB RQID [facility] Last Admin: 01/03/19 07:56 Dose: 1 amp Diltiazem HCl (Cardizem Cd -) 240 mg PO DAILY [facility] Last Admin: 01/03/19 09:33 Dose: 240 mg Docusate Sodium (Colace -) 100 mg PO BID PRN PRN Reason: CONSTIPATION Last Admin: 01/02/19 15:10 Dose: 100 mg Furosemide (Lasix -) 40 mg PO DAILY [facility] Last Admin: 01/03/19 09:33 Dose: 40 mg Insulin Aspart (Novolog Vial Sliding Scale -) 1 vial SQ ACHS [facility]; Protocol Last Admin: 01/03/19 06:23 Dose: 2 units Melatonin (Melatonin) 5 mg PO HS PRN PRN Reason: INSOMNIA Methadone HCl 20 mg/ Methadone (HCl 5 mg/ Methadone HCl 40 mg) 65 mg PO DAILY@ 0600 [facility] Last Admin: 01/03/19 05:41 Dose: 65 mg Nitroglycerin (Nitrostat -) 0.4 mg SL Q5M PRN PRN Reason: CHEST PAIN Pantoprazole Sodium (Protonix -) 40 mg PO DAILY [facility] Last Admin: 01/03/19 09:33 Dose: 40 mg Prednisone (Deltasone -) 60 mg PO DAILY [facility] Last Admin: 01/03/19 09:33 Dose: 60 mg Rivaroxaban (Xarelto) 20 mg PO DAILY@1800 [facility] Last Admin: 01/02/19 17:06 Dose: 20 mg Senna (Senna -) 1 tab PO BID [facility] Last Admin: 01/03/19 09:33 Dose: 1 tab Sotalol HCl (Betapace -) 80 mg PO BID [facility] Last Admin: 01/03/19 09:33 Dose: 80 mg Valsartan (Diovan -) 80 mg PO DAILY [facility] Last Admin: 01/03/19 09:33 Dose: 80 mg A/P Acute on Chronic Hypoxic and Hypercapneic Respiratory Failure Acute COPD Exacerbation Pneumonia Atrial Fibrillation Pulmonary HTN DM - continue medrol at current dose, can likely taper in AM if continues to improve - inhaled bronchodilators standing and PRN - O2 to keep SpO2 >90% - continue antibiotics - rate control - continue anticoagulation - glucose control while on systemic steroids
--- NOTE | 2019-01-03 13:17 | PN ---
Physical Exam: SUBJECTIVE: Patient seen and examined at bedside- no acute events overnight patient states he feels like he is feeling better and that his breathing is improving- he denies any CP/N/V still slightly dyspneic but improving OBJECTIVE: Vital Signs Period Temp Pulse Resp BP Sys/Chatterjee Pulse Ox Last 24 Hr 97.6 F-98.4 F 78-102 18-20 98-129/66-83 98-100 GENERAL: The patient is awake, alert, and fully oriented, in no acute distress, on 2L NC EYES:PEERLA: EOMI no scleral icterus . NECK: no JVD; no lymphadenoapathy LUNGS:decreased breath sounds with slight rhonchi B/L HEART: Regular rate and rhythm, S1, S2 without murmur, rub or gallop. ABDOMEN: Soft, nontender, nondistended, normoactive bowel sounds, no guarding, no rebound, no hepatosplenomegaly, no masses. EXTREMITIES: 2+ pulses, warm, well-perfused, 1+ edema B/L . PSYCH: Normal mood, normal affect. SKIN: Warm, dry, normal turgor, no rashes or lesions noted Laboratory Results - last 24 hr 01/02/19 01/02/19 01/03/19 16:22 21:12 05:39 WBC RBC Hgb Hct MCV MCH MCHC RDW Plt Count MPV Sodium Potassium Chloride Carbon Dioxide Anion Gap BUN Creatinine Creat Clearance w eGFR POC Glucometer 277 238 170 Random Glucose Calcium Phosphorus Magnesium Total Bilirubin AST ALT Alkaline Phosphatase Total Protein Albumin 01/03/19 01/03/19 01/03/19 07:15 07:15 11:20 WBC 13.7 H RBC 4.32 Hgb 12.9 Hct 40.2 MCV 93.1 MCH 29.9 MCHC 32.1 RDW 16.4 H Plt Count 134 MPV 9.9 D Sodium 138 Potassium 4.4 Chloride 98 Carbon Dioxide 34 H Anion Gap 6 L BUN 42 H Creatinine 1.0 Creat Clearance w eGFR 75.47 POC Glucometer 340 Random Glucose 189 H Calcium 8.9 Phosphorus 2.8 Magnesium 2.5 H Total Bilirubin 0.3 AST 18 ALT 23 Alkaline Phosphatase 95 Total Protein 5.7 L Albumin 2.5 L Active Medications Generic Name Dose Route Start Last Admin Trade Name Freq PRN Reason Stop Dose Admin Acetaminophen 650 mg 12/30/18 14:04 Tylenol - PO Q4H PRN PAIN Albuterol Sulfate 1 amp 12/30/18 16:36 12/30/18 16:55 Ventolin 0.083% Nebulizer Soln - NEB 1 amp Q4H PRN Administration SHORT OF BREATH/WHEEZING Albuterol/Ipratropium 1 amp 12/30/18 20:00 01/03/19 11:24 Duoneb - NEB 1 amp RQID DOMINIC Administration Diltiazem HCl 240 mg 12/31/18 10:00 01/03/19 09:33 Cardizem Cd - PO 240 mg DAILY DOMINIC Administration Docusate Sodium 100 mg 01/02/19 14:57 01/02/19 15:10 Colace - PO 100 mg BID PRN Administration CONSTIPATION Furosemide 40 mg 12/31/18 10:00 01/03/19 09:33 Lasix - PO 40 mg DAILY DOMINIC Administration Insulin Aspart 1 vial 12/30/18 16:30 01/03/19 11:21 Novolog Vial Sliding Scale - SQ 8 units ACHS DOMINIC Administration Protocol Melatonin 5 mg 01/02/19 08:17 Melatonin PO HS PRN INSOMNIA Methadone HCl 20 mg/ Methadone 65 mg 12/31/18 10:00 01/03/19 05:41 HCl 5 mg/ Methadone HCl 40 mg PO 65 mg DAILY@0600 DOMINIC Administration Nitroglycerin 0.4 mg 12/30/18 14:00 Nitrostat - SL Q5M PRN CHEST PAIN Pantoprazole Sodium 40 mg 12/31/18 10:00 01/03/19 09:33 Protonix - PO 40 mg DAILY DOMINIC Administration Prednisone 60 mg 01/02/19 13:45 01/03/19 09:33 Deltasone - PO 60 mg DAILY DOMINIC Administration Rivaroxaban 20 mg 12/31/18 18:00 01/02/19 17:06 Xarelto PO 20 mg DAILY@1800 DOMINIC Administration Senna 1 tab 01/03/19 10:00 01/03/19 09:33 Senna - PO 1 tab BID DOMINIC Administration Sotalol HCl 80 mg 12/30/18 22:00 01/03/19 09:33 Betapace - PO 80 mg BID DOMINIC Administration Valsartan 80 mg 12/31/18 10:00 01/03/19 09:33 Diovan - PO 80 mg DAILY DOMINIC Administration ASSESSMENT/PLAN: Patient is a 63 year old male with history of HFpEF, pulmonary hypertension, Afib on Xarelto, COPD (on home oxygen 2L), non insulin dependent diabetes mellitus, opiod dependence (on methadone) presented with complaint of shortness of breath. Acute hypoxic respiratory failure secondary to COPD exacerbation vs pneumonia -Duonebs QID standing, and Q4 hours PRN -Prednisone 60 daily; will start taper upon d/c -Maintain oxygen saturation greater than 90% -Pulmonology recommendations appreciated. CHF, diastolic. -Lasix 40mg PO daily -Valsartan 80mg PO daily -Daily weights -Strict intake output -Dr Burns on board- patient will need ischemic workup done as an outpatient was medically stable Afib -Cardizem CD 240mg PO daily -Sotalol 80mg PO BID -Xarelto 20mg PO daily -rates have been controlled History of opiod dependence -Methadone 65mg PO daily GERD -Protonix 40mg PO daily Diabetes mellitus -HbA1c 6.5% -Insulin sliding scale ACHS -Fingerstick blood glucose monitoring ACHS Hypertension -Patient is currently on Cardizem, and Sotalol. -Follow vital signs closely. FEN -No IV fluids indicated. -Follow CMP -Diabetic diet Prophylaxis -Patient is on Xarelto 20mg PO daily for Afib -Protonix 40mg PO daily Disposition -Continue care in medical- surgical floor Problem List - Problems (1) Acute on chronic respiratory failure with hypoxia and hypercapnia Code(s): J96.21 - ACUTE AND CHRONIC RESPIRATORY FAILURE WITH HYPOXIA; J96.22 - ACUTE AND CHRONIC RESPIRATORY FAILURE WITH HYPERCAPNIA (2) COPD exacerbation Code(s): J44.1 - CHRONIC OBSTRUCTIVE PULMONARY DISEASE W (ACUTE) EXACERBATION (3) Shortness of breath Code(s): R06.02 - SHORTNESS OF BREATH (4) Atrial fibrillation with rapid ventricular response Code(s): I48.91 - UNSPECIFIED ATRIAL FIBRILLATION Visit type - Emergency Visit Emergency Visit: Yes ED Registration Date: 12/30/18 Care time: The patient presented to the Emergency Department on the above date and was hospitalized for further evaluation of their emergent condition. - New Patient This patient is new to me today: No - Critical Care Critical Care patient: No
--- NOTE | 2019-01-03 13:58 | PN ---
Teaching Attending Note Name of Resident: Lizett Washington ATTENDING PHYSICIAN STATEMENT I saw and evaluated the patient. I reviewed the resident's note and discussed the case with the resident. I agree with the resident's findings and plan as documented. SUBJECTIVE: SOB improved - no chest pain/palpitations. No fever/chills. OBJECTIVE: Afebrile, Hemodynamically Stable. Last Vital Signs Temp Pulse Resp BP Pulse Ox 97.7 F 86 18 123/71 100 01/03/19 09:58 01/03/19 09:58 01/03/19 09:58 01/03/19 09:58 01/03/19 09:00 Heart - S1, S2, irregular Lungs - decreased air entry, occassional wheeze. Abdomen - Soft, non-tender. Bowel Sounds normal. Extremities - mild edema, no calf tenderness, excoriation hastings LLE. Neuro - AAO x 3. Tone/Power normal all 4 extremities. Laboratory Results - last 24 hr 01/02/19 01/02/19 01/03/19 16:22 21:12 05:39 WBC RBC Hgb Hct MCV MCH MCHC RDW Plt Count MPV Sodium Potassium Chloride Carbon Dioxide Anion Gap BUN Creatinine Creat Clearance w eGFR POC Glucometer 277 238 170 Random Glucose Calcium Phosphorus Magnesium Total Bilirubin AST ALT Alkaline Phosphatase Total Protein Albumin 01/03/19 01/03/19 01/03/19 07:15 07:15 11:20 WBC 13.7 H RBC 4.32 Hgb 12.9 Hct 40.2 MCV 93.1 MCH 29.9 MCHC 32.1 RDW 16.4 H Plt Count 134 MPV 9.9 D Sodium 138 Potassium 4.4 Chloride 98 Carbon Dioxide 34 H Anion Gap 6 L BUN 42 H Creatinine 1.0 Creat Clearance w eGFR 75.47 POC Glucometer 340 Random Glucose 189 H Calcium 8.9 Phosphorus 2.8 Magnesium 2.5 H Total Bilirubin 0.3 AST 18 ALT 23 Alkaline Phosphatase 95 Total Protein 5.7 L Albumin 2.5 L Current Medications Generic Name Dose Route Start Last Admin Trade Name Freq PRN Reason Stop Dose Admin Acetaminophen 650 mg 12/30/18 14:04 Tylenol - PO Q4H PRN PAIN Albuterol Sulfate 1 amp 12/30/18 16:36 12/30/18 16:55 Ventolin 0.083% Nebulizer Soln - NEB 1 amp Q4H PRN Administration SHORT OF BREATH/WHEEZING Albuterol/Ipratropium 1 amp 12/30/18 20:00 01/03/19 11:24 Duoneb - NEB 1 amp RQID DOMINIC Administration Diltiazem HCl 240 mg 12/31/18 10:00 01/03/19 09:33 Cardizem Cd - PO 240 mg DAILY DOMINIC Administration Docusate Sodium 100 mg 01/02/19 14:57 01/02/19 15:10 Colace - PO 100 mg BID PRN Administration CONSTIPATION Furosemide 40 mg 12/31/18 10:00 01/03/19 09:33 Lasix - PO 40 mg DAILY DOMINIC Administration Insulin Aspart 1 vial 12/30/18 16:30 01/03/19 11:21 Novolog Vial Sliding Scale - SQ 8 units ACHS DOMINIC Administration Protocol Melatonin 5 mg 01/02/19 08:17 Melatonin PO HS PRN INSOMNIA Methadone HCl 20 mg/ Methadone 65 mg 12/31/18 10:00 01/03/19 05:41 HCl 5 mg/ Methadone HCl 40 mg PO 65 mg DAILY@0600 DOMINIC Administration Nitroglycerin 0.4 mg 12/30/18 14:00 Nitrostat - SL Q5M PRN CHEST PAIN Pantoprazole Sodium 40 mg 12/31/18 10:00 01/03/19 09:33 Protonix - PO 40 mg DAILY DOMINIC Administration Prednisone 60 mg 01/02/19 13:45 01/03/19 09:33 Deltasone - PO 60 mg DAILY DOMINIC Administration Rivaroxaban 20 mg 12/31/18 18:00 01/02/19 17:06 Xarelto PO 20 mg DAILY@1800 DOMINIC Administration Senna 1 tab 01/03/19 10:00 01/03/19 09:33 Senna - PO 1 tab BID DOMINIC Administration Sotalol HCl 80 mg 12/30/18 22:00 01/03/19 09:33 Betapace - PO 80 mg BID DOMINIC Administration Valsartan 80 mg 12/31/18 10:00 01/03/19 09:33 Diovan - PO 80 mg DAILY DOMINIC Administration ASSESSMENT AND PLAN: 63 year old Male with history of chronic diastolic heart failure, HTN, Paroxysmal Atrial Fibrillation on Xarelto, chronic hypoxic respiratory failure sec to COPD (on 2L O2), Pulmonary HTN, DM 2, PAD 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 1. Acute on Chronic Hypoxic Respiratory Failure secondary to Acute Exacerbation of COPD - secondary to premature stopping of steroid course. CXR - no infiltrate Continue DuoNeb. Solumedrol transitioned to oral prednisone - for slow taper. Pulmonary following. Leukocytosis sec to Steroids. PFTs as out-patient with Pulm follow up. Once bed available/insurance authorization obtained for SNF 2. Paroxysmal Atrial Fibrillation with RVR Rate well controlled on Sotalol 80 bid and Cardizem 240mg. Continue Sotalol, Cardizem and Xarelto. Cardiology follow up on discharge. 3. CAD with prior Troponin egression secondary to likely demand ischemia NM Stress 12/14 - Mild inferior ischemia. Cardiology evaluated - further testing/investigations as per Cardio. Continue BB, TIFFANIE-I, Nitro prn. 4. Chronic diastolic heart failure - Stable. Continue Lasix. 5. DM 2 - maintain on Novolog sliding scale, especially while on steroids 6. Opioid dependence/Hx substance abuse - Continue methadone maintenance 7. Pulmonary HTN - on Home O2. 8. GERD - continue PPI. 9. HTN - Continue Sotalol, Cardizem, Diovan DVT Px - on Xarelto Dispo - awaiting insurance authorization for SNF.
[2019-01-03] MEDS: RIVAROXABAN 20 MG TABLET PO SCH (17:03)
[2019-01-03] MEDS: MELATONIN 5 MG TABLETS PO PRN (21:19)
[2019-01-03] MEDS: ZOLPIDEM TARTRATE 5 MG TABLET PO PRN (21:19)
[2019-01-04] MEDS ORDERED: METHADONE HCL 5 MG TABLET ONE (05:08)
[2019-01-04] MEDS ORDERED: METHADONE HCL 40 MG DISPERSABLE TABLET ONE (05:09)
[2019-01-04] MEDS ORDERED: METHADONE HCL 10 MG TABLET ONE (05:09)
[2019-01-04] MEDS: METHADONE PO SCH (05:44)
[2019-01-04] MEDS: BENZOCAINE/MENTH/CETYLPYRD CL 1 EACH LOZENGE MM PRN ×2 (06:06→13:56)
[2019-01-04] MEDS: INSULIN SLIDING SCALE (NOVOLOG) 1 VIAL SQ SCH ×4 (06:12→21:37)
[2019-01-04 07:26] LABS: HEMATOCRIT 41.4 % (35.4-49); HEMOGLOBIN 13.3 GM/dL (11.7-16.9); MCH 29.7 pg (25.7-33.7); MCHC 32.2 g/dl (32.0-35.9); MEAN CELL VOLUME 92.2 fl (80-96); MEAN PLT VOLUME 9.6 fl (7.5-11.1); PLATELET COUNT 158 K/MM3 (134-434); RBC 4.49 M/mm3 (4.00-5.60); RDW 15.6 % (11.9-15.9); WHITE BLOOD COUNT 11.8 K/mm3 (4.0-10.0)
[2019-01-04 07:48] LABS: MAGNESIUM 2.2 mg/dL (1.8-2.4); PHOSPHOROUS 2.4 mg/dL (2.5-4.9); POTASSIUM 4.2 mmol/L (3.5-5.1)
[2019-01-04] MEDS: ALBUTEROL SO4 2.5/IPRATROPIUM 0.5 INH SOL 3 ML VIAL.NEB. NEB SCH ×4 (07:54→20:26)
--- NOTE | 2019-01-04 08:07 | PN ---
Physical Exam: SUBJECTIVE: Patient seen and examined OBJECTIVE: Vital Signs Period Temp Pulse Resp BP Sys/Chatterjee Pulse Ox Last 24 Hr 97.6 F-98.1 F 83-91 18-18 101-150/48-89 97-100 GENERAL: The patient is awake, alert, and fully oriented, in no acute distress. HEAD: Normal with no signs of trauma. EYES: PERRL, extraocular movements intact, sclera anicteric, conjunctiva clear. No ptosis. ENT: Ears normal, nares patent, oropharynx clear without exudates, moist mucous membranes. NECK: Trachea midline, full range of motion, supple. LUNGS: Breath sounds equal, clear to auscultation bilaterally, no wheezes, no crackles, no accessory muscle use. HEART: Regular rate and rhythm, S1, S2 without murmur, rub or gallop. ABDOMEN: Soft, nontender, nondistended, normoactive bowel sounds, no guarding, no rebound, no hepatosplenomegaly, no masses. EXTREMITIES: 2+ pulses, warm, well-perfused, no edema. NEUROLOGICAL: Cranial nerves II through XII grossly intact. Normal speech, gait not observed. PSYCH: Normal mood, normal affect. SKIN: Warm, dry, normal turgor, no rashes or lesions noted Laboratory Results - last 24 hr 01/03/19 01/03/19 01/03/19 07:15 11:20 13:40 WBC RBC Hgb Hct MCV MCH MCHC RDW Plt Count MPV Sodium 138 Potassium 4.4 Chloride 98 Carbon Dioxide 34 H Anion Gap 6 L BUN 42 H Creatinine 1.0 Creat Clearance w eGFR 75.47 POC Glucometer 340 Random Glucose 189 H Calcium 8.9 Phosphorus 2.8 Magnesium 2.5 H 2.2 Total Bilirubin 0.3 AST 18 ALT 23 Alkaline Phosphatase 95 Total Protein 5.7 L Albumin 2.5 L 01/03/19 01/03/19 01/04/19 16:23 21:21 06:05 WBC 11.8 H RBC 4.49 Hgb 13.3 Hct 41.4 MCV 92.2 MCH 29.7 MCHC 32.2 RDW 15.6 Plt Count 158 MPV 9.6 Sodium Potassium Chloride Carbon Dioxide Anion Gap BUN Creatinine Creat Clearance w eGFR POC Glucometer 385 340 Random Glucose Calcium Phosphorus Magnesium Total Bilirubin AST ALT Alkaline Phosphatase Total Protein Albumin 01/04/19 01/04/19 06:05 06:09 WBC RBC Hgb Hct MCV MCH MCHC RDW Plt Count MPV Sodium 135 L Potassium 4.2 Chloride 96 L Carbon Dioxide 37 H Anion Gap 2 L BUN 36 H Creatinine 0.9 Creat Clearance w eGFR POC Glucometer 234 Random Glucose 218 H Calcium 9.0 Phosphorus 2.4 L Magnesium 2.2 Total Bilirubin AST ALT Alkaline Phosphatase Total Protein Albumin Active Medications Generic Name Dose Route Start Last Admin Trade Name Freq PRN Reason Stop Dose Admin Acetaminophen 650 mg 12/30/18 14:04 Tylenol - PO Q4H PRN PAIN Albuterol Sulfate 1 amp 12/30/18 16:36 12/30/18 16:55 Ventolin 0.083% Nebulizer Soln - NEB 1 amp Q4H PRN Administration SHORT OF BREATH/WHEEZING Albuterol/Ipratropium 1 amp 12/30/18 20:00 01/04/19 07:54 Duoneb - NEB 1 amp RQID DOMINIC Administration Benzocaine/Menthol 1 each 01/03/19 20:07 01/04/19 06:06 Cepacol Lozenge - MM 1 each Q2H PRN Administration SORE THROAT Diltiazem HCl 240 mg 12/31/18 10:00 01/03/19 09:33 Cardizem Cd - PO 240 mg DAILY DOMINIC Administration Docusate Sodium 100 mg 01/02/19 14:57 01/02/19 15:10 Colace - PO 100 mg BID PRN Administration CONSTIPATION Furosemide 40 mg 12/31/18 10:00 01/03/19 09:33 Lasix - PO 40 mg DAILY DOMINIC Administration Insulin Aspart 1 vial 12/30/18 16:30 01/04/19 06:12 Novolog Vial Sliding Scale - SQ 4 units ACHS DOMINIC Administration Protocol Melatonin 5 mg 01/02/19 08:17 01/03/19 21:19 Melatonin PO 5 mg HS PRN Administration INSOMNIA Methadone HCl 20 mg/ Methadone 65 mg 12/31/18 10:00 01/04/19 05:44 HCl 5 mg/ Methadone HCl 40 mg PO 65 mg DAILY@0600 DOMINIC Administration Nitroglycerin 0.4 mg 12/30/18 14:00 Nitrostat - SL Q5M PRN CHEST PAIN Pantoprazole Sodium 40 mg 12/31/18 10:00 01/03/19 09:33 Protonix - PO 40 mg DAILY DOMINIC Administration Prednisone 60 mg 01/02/19 13:45 01/03/19 09:33 Deltasone - PO 60 mg DAILY DOMINIC Administration Rivaroxaban 20 mg 12/31/18 18:00 01/03/19 17:03 Xarelto PO 20 mg DAILY@1800 DOMINIC Administration Senna 1 tab 01/03/19 10:00 01/03/19 21:23 Senna - PO 1 tab BID DOMINIC Administration Sotalol HCl 80 mg 12/30/18 22:00 01/03/19 21:19 Betapace - PO 80 mg BID DOMINIC Administration Valsartan 80 mg 12/31/18 10:00 01/03/19 09:33 Diovan - PO 80 mg DAILY DOMINIC Administration Zolpidem Tartrate 5 mg 01/03/19 22:00 01/03/19 21:19 Ambien - PO 5 mg HS PRN Administration INSOMNIA ASSESSMENT/PLAN: Patient is a 63 year old male with history of HFpEF, pulmonary hypertension, Afib on Xarelto, COPD (on home oxygen 2L), non insulin dependent diabetes mellitus, opiod dependence (on methadone) presented with complaint of shortness of breath. Acute hypoxic respiratory failure secondary to COPD exacerbation vs pneumonia -Duonebs QID standing, and Q4 hours PRN -Prednisone 60 daily; will start taper upon d/c -Maintain oxygen saturation greater than 90% -Pulmonology recommendations appreciated. CHF, diastolic. -Lasix 40mg PO daily -Valsartan 80mg PO daily -Daily weights -Strict intake output -Dr Burns on board- patient will need ischemic workup done as an outpatient was medically stable Afib -Cardizem CD 240mg PO daily -Sotalol 80mg PO BID -Xarelto 20mg PO daily -rates have been controlled History of opiod dependence -Methadone 65mg PO daily GERD -Protonix 40mg PO daily Diabetes mellitus -HbA1c 6.5% -Insulin sliding scale ACHS -Fingerstick blood glucose monitoring ACHS Hypertension -Patient is currently on Cardizem, and Sotalol. -Follow vital signs closely. FEN -No IV fluids indicated. -Follow CMP -Diabetic diet Prophylaxis -Patient is on Xarelto 20mg PO daily for Afib -Protonix 40mg PO daily Disposition -Continue care in medical- surgical floor Problem List - Problems (1) Acute on chronic respiratory failure with hypoxia and hypercapnia Code(s): J96.21 - ACUTE AND CHRONIC RESPIRATORY FAILURE WITH HYPOXIA; J96.22 - ACUTE AND CHRONIC RESPIRATORY FAILURE WITH HYPERCAPNIA (2) COPD exacerbation Code(s): J44.1 - CHRONIC OBSTRUCTIVE PULMONARY DISEASE W (ACUTE) EXACERBATION (3) Shortness of breath Code(s): R06.02 - SHORTNESS OF BREATH (4) Atrial fibrillation with rapid ventricular response Code(s): I48.91 - UNSPECIFIED ATRIAL FIBRILLATION
[2019-01-04] MEDS ORDERED: NAPH,MB-DB/K PH,MBDB POWDER PACKET PO ONE ×2 (09:15→15:34)
[2019-01-04 09:53] LABS: CREATININE 0.9 mg/dL (0.55-1.3)
[2019-01-04] MEDS: SENNOSIDES 8.6MG TABLET (FP) PO SCH ×2 (10:59→21:34)
[2019-01-04] MEDS: PANTOPRAZOLE 40 MG TABLET (FP) PO SCH (11:00)
[2019-01-04] MEDS: SOTALOL HCL 80 MG TABLET (FP) PO SCH ×2 (11:01→21:34)
[2019-01-04] MEDS: FUROSEMIDE 40 MG TABLET (FP) PO SCH (11:01)
[2019-01-04] MEDS: VALSARTAN 80 MG TABLET (UD) PO SCH (11:01)
[2019-01-04] MEDS: predniSONE 20 MG TABLET (UD) PO SCH (11:02)
[2019-01-04] MEDS: SODIUM PHOSPHATE - 30 MM in SODIUM CHLORIDE 250 ML IVPB ONE ×2 (11:02→12:03)
--- NOTE | 2019-01-04 11:50 | DS ---
Physical Exam: SUBJECTIVE: Patient seen and examined OBJECTIVE: Vital Signs Period Temp Pulse Resp BP Sys/Chatterjee Pulse Ox Last 24 Hr 97.6 F-98.1 F 83-91 18-18 101-150/48-89 97 PHYSICAL EXAM GENERAL: The patient is awake, alert, and fully oriented, in no acute distress. HEAD: Normal with no signs of trauma. EYES: PERRL, extraocular movements intact, sclera anicteric, conjunctiva clear. ENT: Ears normal, nares patent, oropharynx clear without exudates, moist mucous membranes. NECK: Trachea midline, full range of motion, supple. LUNGS: Breath sounds equal, clear to auscultation bilaterally, no wheezes, no crackles, no accessory muscle use. HEART: Regular rate and rhythm, S1, S2 without murmur, rub or gallop. ABDOMEN: Soft, nontender, nondistended, normoactive bowel sounds, no guarding, no rebound, no hepatosplenomegaly, no masses. EXTREMITIES: 2+ pulses, warm, well-perfused, no edema. NEUROLOGICAL: Cranial nerves II through XII grossly intact. Normal speech, gait not observed. PSYCH: Normal mood, normal affect. SKIN: Warm, dry, normal turgor, no rashes or lesions noted. LABS Laboratory Results - last 24 hr 01/03/19 01/03/19 01/03/19 13:40 16:23 21:21 WBC RBC Hgb Hct MCV MCH MCHC RDW Plt Count MPV Sodium Potassium Chloride Carbon Dioxide Anion Gap BUN Creatinine Est GFR (CKD-EPI)AfAm Est GFR (CKD-EPI)NonAf POC Glucometer 385 340 Random Glucose Calcium Phosphorus Magnesium 2.2 01/04/19 01/04/19 01/04/19 06:05 06:05 06:09 WBC 11.8 H RBC 4.49 Hgb 13.3 Hct 41.4 MCV 92.2 MCH 29.7 MCHC 32.2 RDW 15.6 Plt Count 158 MPV 9.6 Sodium 135 L Potassium 4.2 Chloride 96 L Carbon Dioxide 37 H Anion Gap 2 L BUN 36 H Creatinine 0.9 Est GFR (CKD-EPI)AfAm 104.98 Est GFR (CKD-EPI)NonAf 90.58 POC Glucometer 234 Random Glucose 218 H Calcium 9.0 Phosphorus 2.4 L Magnesium 2.2 HOSPITAL COURSE: Date of Admission:12/30/18 63 y/o male with PMH of CHF< Afib, HTN DM HLD presented to the ED with worsening SOB- had been hospitalzied about one week prior and had been d/c'd on a prednisone taper of which he decided to stop on his own since it was making his sugars too high. This is a 63 yo M with PMH of HFPEF, pulm HTN, persistent AF on Xarelto, COPD on 2L O2, DM, Methadone dependence, who presents due to worsening sob since yesterday. He was recently discharged on 12/24 after treatment for COPD exacerbation and was supposed to take a 2w prednisone taper, which he abruptly stopped at 1w due to worsened hyperglycemia. This is his 5th admission this year for COPD exacerbation and CHF exacerbation. Current sob is severe to the point where he is unable to make it to the bathroom without stopping. he reports cough productive of green sputum and mild cp. Denies sick contacts, denies increased salt or water intake., patient was hypoxic on arrival he has placed on 3L NC and he was also in afib with RVR. CXR was performed which showed new rLL infiltrate so he was started on broiad spectrum abx in addiiton to duonebs and IV medrol. his symptoms improved- he was discharged to SNF with a 13 day prednisone taper in addition to his other hoem meds with cardio and pulm follow up Date of Discharge: 01/05/19 Minutes to complete discharge: 35 Discharge Summary Reason For Visit: SOB,PNEUMONIA Current Active Problems Acute on chronic respiratory failure with hypoxia and hypercapnia (Acute) COPD exacerbation (Acute) Pneumonia (Acute) Shortness of breath (Acute) Condition: Stable - Instructions Diet, Activity, Other Instructions: You came to the hospital with worsening shortness of breath likely secondary to your COPD. We have been treating you with steroids and your symptoms have been improving. We will be sending you with with a steroid taper PLEASE follow the instructions for the full 13 days. Please resume all of your home medications in addition please follow this steroid taper: 60mg X1 day (01/04/19) 40mg X 3 days (01/05-01/07) 30mg X 3 days (01/08-01/10) 20mg X 3days (01/11-01/13) 10mg X 3 days (01/14-01/16) Please monitor your sugars before every meal We will also be starting you on an insulin sliding scale for your sugars please follow this scale: Blood Sugar level: 101-150 - 0 units 151-200 2units 201-250 4 units 251-300 6 units 301-350 8 units 351-400 10 units: call MD or go to ER greater than 400 12 units: call MD or go to ER Please follow up with your primary care physician within one week Please follow up with Dr. Coleman, the hospital administrative assistant within one week Please follow up with Dr. Burns, the video game producer within one week as you may need further cardiac testing *if you begin to experience worsening shortness of breath, chest pains, nausea/ vomiting, fevers please return to the emergency room immediately Referrals: Hany Coleman MD [Staff Physician] - 1 Week Lei Burns MD [Staff Physician] - 1 Week Disposition: CARE HOME FACILITY - Home Medications Comprehensive Discharge Medication List: Ambulatory Orders Methadone [Dolophine -] 65 mg PO DAILY 09/25/17 Rivaroxaban [Xarelto -] 20 mg PO DAILY 09/25/17 metFORMIN HCL [Glucophage -] 500 mg PO BID 09/25/17 Albuterol Sulfate Inhaler - [Ventolin HFA Inhaler -] 1 - 2 inh PO QID PRN #1 inhaler 01/26/18 Furosemide [Lasix -] 40 mg PO DAILY #30 tablet 11/14/18 Budesonide/Formeterol Fumarate [SYMBICORT 160/4.5mcg -] 2 puff IH BID #7 inhaler 12/10/18 Pantoprazole Sodium [Protonix -] 40 mg PO DAILY #30 tablet.ec 12/10/18 Diltiazem Cd [Cardizem Cd -] 240 mg PO DAILY 30 Days #30 cap.cd.24h 12/24/18 Nitroglycerin 0.4 mg SL PRN 7 Days #7 tab.subl 12/24/18 Prednisone See Taper PO ASDIR 20 Days #32 tablet 12/24/18 Sotalol HCl [Betapace -] 80 mg PO BID 30 Days #60 tablet 12/24/18 Valsartan [Diovan] 80 mg PO DAILY 30 Days #30 tablet 12/24/18 predniSONE [Deltasone -] See Taper PO DAILY #30 tablet 01/03/19 Alcohol Antiseptic Pads [Alcohol Swabs] 1 each TP ACHS #60 med..pad 01/04/19 Insulin Sliding Scale [Novolog Vial Sliding Scale -] 1 vial SQ ACHS #1 pen 01/04 Miscellaneous Medical Supply [Glucometer Device] 1 each AD ASDIR #1 kit Miscellaneous Medical Supply [Glucometer Test Strips #100] 1 each AD ASDIR #1 box 01/04/19 Miscellaneous Medical Supply [Lancets] 1 each AD ASDIR #1 box 01/04/19 Allen, Disposable [Easy Touch Hypodermic Needle] 1 each MC ACHS #60 dis.needle 01/04/19 Problem List - Problems (1) Acute on chronic respiratory failure with hypoxia and hypercapnia Code(s): J96.21 - ACUTE AND CHRONIC RESPIRATORY FAILURE WITH HYPOXIA; J96.22 - ACUTE AND CHRONIC RESPIRATORY FAILURE WITH HYPERCAPNIA (2) COPD exacerbation Code(s): J44.1 - CHRONIC OBSTRUCTIVE PULMONARY DISEASE W (ACUTE) EXACERBATION (3) Shortness of breath Code(s): R06.02 - SHORTNESS OF BREATH (4) Atrial fibrillation with rapid ventricular response Code(s): I48.91 - UNSPECIFIED ATRIAL FIBRILLATION This patient is new to me today: No Emergency Visit: Yes ED Registration Date: 12/30/18 Care time: The patient presented to the Emergency Department on the above date and was hospitalized for further evaluation of their emergent condition. Critical Care patient: No - Discharge Referral Referred to [facility] No
--- NOTE | 2019-01-04 12:53 | PN ---
Progress Note, Physician History of Present Illness: Shortness of breath on exertion and productive cough resolving, remains in SR. - Current Medication List Current Medications: Active Medications Acetaminophen (Tylenol -) 650 mg PO Q4H PRN PRN Reason: PAIN Albuterol Sulfate (Ventolin 0.083% Nebulizer Soln -) 1 amp NEB Q4H PRN PRN Reason: SHORT OF BREATH/WHEEZING Last Admin: 12/30/18 16:55 Dose: 1 amp Albuterol/Ipratropium (Duoneb -) 1 amp NEB RQID [facility] Last Admin: 01/04/19 11:29 Dose: 1 amp Benzocaine/Menthol (Cepacol Lozenge -) 1 each MM Q2H PRN PRN Reason: SORE THROAT Last Admin: 01/04/19 06:06 Dose: 1 each Diltiazem HCl (Cardizem Cd -) 240 mg PO DAILY [facility] Last Admin: 01/04/19 10:58 Dose: 240 mg Docusate Sodium (Colace -) 100 mg PO BID PRN PRN Reason: CONSTIPATION Last Admin: 01/02/19 15:10 Dose: 100 mg Furosemide (Lasix -) 40 mg PO DAILY [facility] Last Admin: 01/04/19 11:01 Dose: 40 mg Sodium Phosphate 30 mm/ Sodium (Chloride) 260 mls @ 65 mls/hr IVPB ONCE ONE Stop: 01/04/19 13:29 Last Admin: 01/04/19 12:03 Dose: Not Given Insulin Aspart (Novolog Vial Sliding Scale -) 1 vial SQ ACHS [facility]; Protocol Last Admin: 01/04/19 12:02 Dose: 6 units Melatonin (Melatonin) 5 mg PO HS PRN PRN Reason: INSOMNIA Last Admin: 01/03/19 21:19 Dose: 5 mg Methadone HCl 20 mg/ Methadone (HCl 5 mg/ Methadone HCl 40 mg) 65 mg PO DAILY@ 0600 [facility] Last Admin: 01/04/19 05:44 Dose: 65 mg Nitroglycerin (Nitrostat -) 0.4 mg SL Q5M PRN PRN Reason: CHEST PAIN Pantoprazole Sodium (Protonix -) 40 mg PO DAILY [facility] Last Admin: 01/04/19 11:00 Dose: 40 mg Prednisone (Deltasone -) 60 mg PO DAILY [facility] Last Admin: 01/04/19 11:02 Dose: 60 mg Rivaroxaban (Xarelto) 20 mg PO DAILY@1800 [facility] Last Admin: 01/03/19 17:03 Dose: 20 mg Senna (Senna -) 1 tab PO BID [facility] Last Admin: 01/04/19 10:59 Dose: 1 tab Sotalol HCl (Betapace -) 80 mg PO BID [facility] Last Admin: 01/04/19 11:01 Dose: 80 mg Valsartan (Diovan -) 80 mg PO DAILY [facility] Last Admin: 01/04/19 11:01 Dose: 80 mg Zolpidem Tartrate (Ambien -) 5 mg PO HS PRN PRN Reason: INSOMNIA Last Admin: 01/03/19 21:19 Dose: 5 mg - Objective Vital Signs: Vital Signs Temperature 98.1 F 01/04/19 06:00 Pulse Rate 91 H 01/04/19 06:00 Respiratory Rate 18 01/04/19 06:00 Blood Pressure 150/75 01/04/19 06:00 O2 Sat by Pulse Oximetry (%) 97 01/03/19 21:00 Constitutional: Yes: No Distress, Calm, Thin Neck: Yes: Supple Cardiovascular: Yes: Regular Rate and Rhythm Respiratory: Yes: Regular, Diminished, On Nasal O2, Wheezes Gastrointestinal: Yes: Normal Bowel Sounds, Soft Edema: No Labs: CBC, BMP 01/04/19 06:05 01/04/19 06:05 Problem List - Problems (1) Acute on chronic respiratory failure with hypoxia and hypercapnia Code(s): J96.21 - ACUTE AND CHRONIC RESPIRATORY FAILURE WITH HYPOXIA; J96.22 - ACUTE AND CHRONIC RESPIRATORY FAILURE WITH HYPERCAPNIA (2) COPD exacerbation Code(s): J44.1 - CHRONIC OBSTRUCTIVE PULMONARY DISEASE W (ACUTE) EXACERBATION (3) Pneumonia Code(s): J18.9 - PNEUMONIA, UNSPECIFIED ORGANISM Qualifiers: Pneumonia type: due to unspecified organism Laterality: bilateral Lung location: unspecified part of lung Qualified Code(s): J18.9 - Pneumonia, unspecified organism (4) Shortness of breath Code(s): R06.02 - SHORTNESS OF BREATH (5) CHF (congestive heart failure) Code(s): I50.9 - HEART FAILURE, UNSPECIFIED (6) Diabetes type 2, controlled Code(s): E11.9 - TYPE 2 DIABETES MELLITUS WITHOUT COMPLICATIONS Qualifiers: Diabetes mellitus longwall foreman insulin use: without longwall foreman use (7) Methadone dependence Code(s): F11.20 - OPIOID DEPENDENCE, UNCOMPLICATED (8) PAD (peripheral artery disease) Code(s): I73.9 - PERIPHERAL VASCULAR DISEASE, UNSPECIFIED (9) Paroxysmal atrial fibrillation Code(s): I48.0 - PAROXYSMAL ATRIAL FIBRILLATION (10) PNA (pneumonia) Code(s): J18.9 - PNEUMONIA, UNSPECIFIED ORGANISM Qualifiers: Pneumonia type: due to unspecified organism Laterality: unspecified laterality Lung location: unspecified part of lung Qualified Code(s): J18.9 - Pneumonia, unspecified organism (11) S/P aorto-bifemoral bypass surgery Code(s): Z95.828 - PRESENCE OF OTHER VASCULAR IMPLANTS AND GRAFTS Assessment/Plan 11/14/2018 Echo: Normal LV size and fxn LVEF 60-65%, normal RV size and fxn, mild LAE, RVSP 40 mmHg 12/23/2016 P-Myoview: Small size, mild inferior ischemia LVEF 71% 1. Acute on Chronic Hypoxic and Hypercapneic Respiratory Failure 2. Acute COPD Exacerbation, PNA 3. Paroxysmal atrial fibrillation/atrial flutter recurrent arrhythmia with RVR [id number] score of 4, on DOAC's/Xarelto with recurrence 4. CAD/CAC- coronary artery calcification/CT scan chest dated 12/23/16 abnormal MPI study demand ischemic injury angina pectoris, chest pain syndrome with recurrent arrhythmia as noted above 5. Acute on chronic class I-II NYHA classification LV diastolic failure 6. HTN 7. DM 8. Hypercholesterolemia 9. 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 Prior history of substance abuse/Opioid dependence currently on Methadone treatment PLAN: 1. Oral steroid taper with GI protection, BD, O2 to keep SpO2 >90%, completed abx course 2. Continue Xarelto 20 qd 3. Continue Cardizem CD 240 qd, hemodynamics permitting, additional IV Cardizem to assist with rate control 4. Continue Diovan 80 qd, hemodynamics permitting as renal function at baseline 5. Continue Betapace 80 bid with caution and close monitoring of QTc interval/ EKG's noted 6. Continue diuretics Lasix 40 qd
--- NOTE | 2019-01-04 14:02 | PN ---
Progress Note (short form) - Note Progress Note: PULMONARY Breathing slowly improving. +nonproductive cough. No fevers or chills. Vital Signs Period Temp Pulse Resp BP Sys/Chatterjee Pulse Ox Last 24 Hr 97.6 F-98.1 F 83-91 18-18 101-150/48-89 97 Gen: less tachypneic with speaking Heart: RRR Lung: poor air movement, scattered wheeze Abd: soft, nontender Ext: no edema CBC, BMP 01/04/19 06:05 01/04/19 06:05 Active Medications Acetaminophen (Tylenol -) 650 mg PO Q4H PRN PRN Reason: PAIN Albuterol Sulfate (Ventolin 0.083% Nebulizer Soln -) 1 amp NEB Q4H PRN PRN Reason: SHORT OF BREATH/WHEEZING Last Admin: 12/30/18 16:55 Dose: 1 amp Albuterol/Ipratropium (Duoneb -) 1 amp NEB RQID [facility] Last Admin: 01/04/19 11:29 Dose: 1 amp Benzocaine/Menthol (Cepacol Lozenge -) 1 each MM Q2H PRN PRN Reason: SORE THROAT Last Admin: 01/04/19 13:56 Dose: 1 each Diltiazem HCl (Cardizem Cd -) 240 mg PO DAILY [facility] Last Admin: 01/04/19 10:58 Dose: 240 mg Docusate Sodium (Colace -) 100 mg PO BID PRN PRN Reason: CONSTIPATION Last Admin: 01/02/19 15:10 Dose: 100 mg Furosemide (Lasix -) 40 mg PO DAILY [facility] Last Admin: 01/04/19 11:01 Dose: 40 mg Insulin Aspart (Novolog Vial Sliding Scale -) 1 vial SQ ACHS [facility]; Protocol Last Admin: 01/04/19 12:02 Dose: 6 units Melatonin (Melatonin) 5 mg PO HS PRN PRN Reason: INSOMNIA Last Admin: 01/03/19 21:19 Dose: 5 mg Methadone HCl 20 mg/ Methadone (HCl 5 mg/ Methadone HCl 40 mg) 65 mg PO DAILY@ 0600 [facility] Last Admin: 01/04/19 05:44 Dose: 65 mg Nitroglycerin (Nitrostat -) 0.4 mg SL Q5M PRN PRN Reason: CHEST PAIN Pantoprazole Sodium (Protonix -) 40 mg PO DAILY [facility] Last Admin: 01/04/19 11:00 Dose: 40 mg Prednisone (Deltasone -) 60 mg PO DAILY [facility] Last Admin: 01/04/19 11:02 Dose: 60 mg Rivaroxaban (Xarelto) 20 mg PO DAILY@1800 [facility] Last Admin: 01/03/19 17:03 Dose: 20 mg Senna (Senna -) 1 tab PO BID [facility] Last Admin: 01/04/19 10:59 Dose: 1 tab Sotalol HCl (Betapace -) 80 mg PO BID [facility] Last Admin: 01/04/19 11:01 Dose: 80 mg Valsartan (Diovan -) 80 mg PO DAILY [facility] Last Admin: 01/04/19 11:01 Dose: 80 mg Zolpidem Tartrate (Ambien -) 5 mg PO HS PRN PRN Reason: INSOMNIA Last Admin: 01/03/19 21:19 Dose: 5 mg A/P Acute on Chronic Hypoxic and Hypercapneic Respiratory Failure Acute COPD Exacerbation Pneumonia Atrial Fibrillation Pulmonary HTN DM - prednisone taper - inhaled bronchodilators standing and PRN - O2 to keep SpO2 >90% - continue antibiotics - rate control - continue anticoagulation - glucose control while on systemic steroids - d/c planning in progress
--- NOTE | 2019-01-04 15:22 | PN ---
Teaching Attending Note Name of Resident: Lizett Washington ATTENDING PHYSICIAN STATEMENT I saw and evaluated the patient. I reviewed the resident's note and discussed the case with the resident. I agree with the resident's findings and plan as documented. SUBJECTIVE: SOB much improved - no chest pain/palpitations. No fever/chills. OBJECTIVE: Afebrile, Hemodynamically Stable. Last Vital Signs Temp Pulse Resp BP Pulse Ox 97.8 F 94 H 18 125/98 97 01/04/19 14:26 01/04/19 14:26 01/04/19 14:26 01/04/19 14:26 01/03/19 21:00 Heart - S1, S2, irregular Lungs - decreased air entry, occasional wheeze. Abdomen - Soft, non-tender. Bowel Sounds normal. Extremities - mild edema, no calf tenderness, excoriation hastings LLE. Laboratory Results - last 24 hr 01/03/19 01/03/19 01/04/19 16:23 21:21 06:05 WBC 11.8 H RBC 4.49 Hgb 13.3 Hct 41.4 MCV 92.2 MCH 29.7 MCHC 32.2 RDW 15.6 Plt Count 158 MPV 9.6 Sodium Potassium Chloride Carbon Dioxide Anion Gap BUN Creatinine Est GFR (CKD-EPI)AfAm Est GFR (CKD-EPI)NonAf POC Glucometer 385 340 Random Glucose Calcium Phosphorus Magnesium 01/04/19 01/04/19 01/04/19 06:05 06:09 11:59 WBC RBC Hgb Hct MCV MCH MCHC RDW Plt Count MPV Sodium 135 L Potassium 4.2 Chloride 96 L Carbon Dioxide 37 H Anion Gap 2 L BUN 36 H Creatinine 0.9 Est GFR (CKD-EPI)AfAm 104.98 Est GFR (CKD-EPI)NonAf 90.58 POC Glucometer 234 292 Random Glucose 218 H Calcium 9.0 Phosphorus 2.4 L Magnesium 2.2 Current Medications Generic Name Dose Route Start Last Admin Trade Name Freq PRN Reason Stop Dose Admin Acetaminophen 650 mg 12/30/18 14:04 Tylenol - PO Q4H PRN PAIN Albuterol Sulfate 1 amp 12/30/18 16:36 12/30/18 16:55 Ventolin 0.083% Nebulizer Soln - NEB 1 amp Q4H PRN Administration SHORT OF BREATH/WHEEZING Albuterol/Ipratropium 1 amp 12/30/18 20:00 01/04/19 11:29 Duoneb - NEB 1 amp RQID [facility] Administration Benzocaine/Menthol 1 each 01/03/19 20:07 01/04/19 13:56 Cepacol Lozenge - MM 1 each Q2H PRN Administration SORE THROAT Diltiazem HCl 240 mg 12/31/18 10:00 01/04/19 10:58 Cardizem Cd - PO 240 mg DAILY [facility] Administration Docusate Sodium 100 mg 01/02/19 14:57 01/02/19 15:10 Colace - PO 100 mg BID PRN Administration CONSTIPATION Furosemide 40 mg 12/31/18 10:00 01/04/19 11:01 Lasix - PO 40 mg DAILY [facility] Administration Insulin Aspart 1 vial 12/30/18 16:30 01/04/19 12:02 Novolog Vial Sliding Scale - SQ 6 units ACHS [facility] Administration Protocol Melatonin 5 mg 01/02/19 08:17 01/03/19 21:19 Melatonin PO 5 mg HS PRN Administration INSOMNIA Methadone HCl 20 mg/ Methadone 65 mg 12/31/18 10:00 01/04/19 05:44 HCl 5 mg/ Methadone HCl 40 mg PO 65 mg DAILY@0600 [facility] Administration Nitroglycerin 0.4 mg 12/30/18 14:00 Nitrostat - SL Q5M PRN CHEST PAIN Pantoprazole Sodium 40 mg 12/31/18 10:00 01/04/19 11:00 Protonix - PO 40 mg DAILY [facility] Administration Prednisone 60 mg 01/02/19 13:45 01/04/19 11:02 Deltasone - PO 60 mg DAILY [facility] Administration Rivaroxaban 20 mg 12/31/18 18:00 01/03/19 17:03 Xarelto PO 20 mg DAILY@1800 [facility] Administration Senna 1 tab 01/03/19 10:00 01/04/19 10:59 Senna - PO 1 tab BID [facility] Administration Sotalol HCl 80 mg 12/30/18 22:00 01/04/19 11:01 Betapace - PO 80 mg BID [facility] Administration Valsartan 80 mg 12/31/18 10:00 01/04/19 11:01 Diovan - PO 80 mg DAILY [facility] Administration Zolpidem Tartrate 5 mg 01/03/19 22:00 01/03/19 21:19 Ambien - PO 5 mg HS PRN Administration INSOMNIA ASSESSMENT AND PLAN: 63 year old Male with history of chronic diastolic heart failure, HTN, Paroxysmal Atrial Fibrillation on Xarelto, chronic hypoxic respiratory failure sec to COPD (on 2L O2), Pulmonary HTN, DM 2, PAD 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 1. Acute on Chronic Hypoxic Respiratory Failure secondary to Acute Exacerbation of COPD - secondary to premature stopping of steroid course. CXR - no infiltrate Continue DuoNeb. Solumedrol transitioned to oral prednisone - for slow taper on discharge with close Pulmonary follow-up. Leukocytosis sec to Steroids. PFTs as out-patient with Pulm follow up. Medically stable for transfer to SNF. 2. Paroxysmal Atrial Fibrillation with RVR Rate well controlled on Sotalol 80 bid and Cardizem 240mg. Continue Sotalol, Cardizem and Xarelto. Cardiology follow up on discharge. 3. CAD with prior Troponin egression secondary to likely demand ischemia NM Stress 12/14 - Mild inferior ischemia. Cardiology evaluated - further testing/investigations as out-patient as per Cardio. Continue BB, TIFFANIE-I, Nitro prn. 4. Chronic diastolic heart failure - Stable. Continue Lasix. 5. DM 2 - maintain on Novolog sliding scale while on steroids along with oral antihyperglycemics (Metformin) 6. Opioid dependence/Hx substance abuse - Continue methadone maintenance 7. Pulmonary HTN - on Home O2. 8. GERD - continue PPI. 9. HTN - Continue Sotalol, Cardizem, Diovan 10. Hypophosphatemia - repleted. DVT Px - on Xarelto Dispo - Medically stable for transfer to SNF.
[2019-01-04] MEDS: RIVAROXABAN 20 MG TABLET PO SCH (18:53)
[2019-01-04] MEDS: MELATONIN 5 MG TABLETS PO PRN (21:34)
[2019-01-04] MEDS: ZOLPIDEM TARTRATE 5 MG TABLET PO PRN (21:34)
[2019-01-05] MEDS: BENZOCAINE/MENTH/CETYLPYRD CL 1 EACH LOZENGE MM PRN (04:13)
[2019-01-05] MEDS ORDERED: METHADONE HCL 5 MG TABLET ONE (05:11)
[2019-01-05] MEDS ORDERED: METHADONE HCL 10 MG TABLET ONE (05:11)
[2019-01-05] MEDS ORDERED: METHADONE HCL 40 MG DISPERSABLE TABLET ONE (05:12)
[2019-01-05] MEDS: METHADONE PO SCH (05:18)
[2019-01-05] MEDS: INSULIN SLIDING SCALE (NOVOLOG) 1 VIAL SQ SCH (06:23)
[2019-01-05 07:18] LABS: HEMOGLOBIN 13.5 GM/dL (11.7-16.9); MCH 29.7 pg (25.7-33.7); MCHC 32.2 g/dl (32.0-35.9); MEAN CELL VOLUME 92.4 fl (80-96); MEAN PLT VOLUME 9.4 fl (7.5-11.1); PLATELET COUNT 165 K/MM3 (134-434); RBC 4.55 M/mm3 (4.00-5.60); WHITE BLOOD COUNT 11.4 K/mm3 (4.0-10.0)
[2019-01-05 07:41] LABS: CALCIUM 8.5 mg/dL (8.5-10.1); CREATININE 0.9 mg/dL (0.55-1.3); PHOSPHOROUS 2.6 mg/dL (2.5-4.9); POTASSIUM 4.3 mmol/L (3.5-5.1)
[2019-01-05] MEDS: ALBUTEROL SO4 2.5/IPRATROPIUM 0.5 INH SOL 3 ML VIAL.NEB. NEB SCH (08:28)
[2019-01-05] MEDS: predniSONE 20 MG TABLET (UD) PO SCH (09:49)
[2019-01-05] MEDS: SENNOSIDES 8.6MG TABLET (FP) PO SCH (09:50)
[2019-01-05] MEDS: PANTOPRAZOLE 40 MG TABLET (FP) PO SCH (09:50)
[2019-01-05] MEDS: SOTALOL HCL 80 MG TABLET (FP) PO SCH (09:50)
[2019-01-05] MEDS: VALSARTAN 80 MG TABLET (UD) PO SCH (09:50)
[2019-01-05] MEDS: FUROSEMIDE 40 MG TABLET (FP) PO SCH (09:50)
[2019-01-05 11:51] VITALS: BP 120/77; PULSE 103; TEMP 98.1
--- NOTE | 2019-01-05 14:17 | PN ---
Teaching Attending Note Name of Resident: Lizett Washington ATTENDING PHYSICIAN STATEMENT I saw and evaluated the patient. I reviewed the resident's note and discussed the case with the resident. I agree with the resident's findings and plan as documented. SUBJECTIVE: SOB much improved - no chest pain/palpitations. No fever/chills. OBJECTIVE: Afebrile, Hemodynamically Stable. Last Vital Signs Temp Pulse Resp BP Pulse Ox 98.1 F 103 H 18 120/77 100 01/05/19 10:00 01/05/19 10:00 01/05/19 10:01/05/19 10:01/05/19 09:00 Heart - S1, S2, irregular Lungs - decreased air entry bilaterally - no wheeze. Abdomen - Soft, non-tender. Bowel Sounds normal. Extremities - mild edema, no calf tenderness, excoriation hastings LLE. Laboratory Results - last 24 hr 01/04/19 01/04/19 01/05/19 16:45 21:36 03:10 WBC RBC Hgb Hct MCV MCH MCHC RDW Plt Count MPV Sodium Potassium Chloride Carbon Dioxide Anion Gap BUN Creatinine Est GFR (CKD-EPI)AfAm Est GFR (CKD-EPI)NonAf POC Glucometer 394 441 224 Random Glucose Calcium Phosphorus Magnesium 01/05/19 01/05/19 01/05/19 05:17 06:00 06:00 WBC 11.4 H RBC 4.55 Hgb 13.5 Hct 42.0 MCV 92.4 MCH 29.7 MCHC 32.2 RDW 16.0 H Plt Count 165 MPV 9.4 Sodium 136 Potassium 4.3 Chloride 94 L Carbon Dioxide 38 H Anion Gap 3 L BUN 33 H Creatinine 0.9 Est GFR (CKD-EPI)AfAm 104.98 Est GFR (CKD-EPI)NonAf 90.58 POC Glucometer 169 Random Glucose 186 H Calcium 8.5 Phosphorus 2.6 Magnesium 2.0 Discharge Medications Medication Instructions Recorded Methadone [Dolophine -] 65 mg PO DAILY 09/25/17 Rivaroxaban [Xarelto -] 20 mg PO DAILY 09/25/17 metFORMIN HCL [Glucophage -] 500 mg PO BID 09/25/17 Albuterol Sulfate Inhaler - 1 - 2 inh PO QID PRN #1 inhaler 01/26/18 [Ventolin HFA Inhaler -] Furosemide [Lasix -] 40 mg PO DAILY #30 tablet 11/14/18 Budesonide/Formeterol Fumarate 2 puff IH BID #7 inhaler 12/10/18 [SYMBICORT 160/4.5mcg -] Pantoprazole Sodium [Protonix -] 40 mg PO DAILY #30 tablet.ec 12/10/18 Diltiazem Cd [Cardizem Cd -] 240 mg PO DAILY 30 Days #30 12/24/18 cap.cd.24h Nitroglycerin 0.4 mg SL PRN 7 Days #7 tab.subl 12/24/18 Prednisone See Taper PO ASDIR 20 Days #32 12/24/18 tablet Sotalol HCl [Betapace -] 80 mg PO BID 30 Days #60 tablet 12/24/18 Valsartan [Diovan] 80 mg PO DAILY 30 Days #30 tablet 12/24/18 predniSONE [Deltasone -] See Taper PO DAILY #30 tablet 01/03/19 Alcohol Antiseptic Pads [Alcohol 1 each TP ACHS #60 med..pad 01/04/19 Swabs] Insulin Sliding Scale [Novolog 1 vial SQ ACHS #1 pen 01/04/19 Vial Sliding Scale -] Miscellaneous Medical Supply 1 each AD ASDIR #1 kit 01/04/19 [Glucometer Device] Miscellaneous Medical Supply 1 each AD ASDIR #1 box 01/04/19 [Glucometer Test Strips #100] Miscellaneous Medical Supply 1 each AD ASDIR #1 box 01/04/19 [Lancets] Poth, Disposable [Easy Touch 1 each ACHS #60 dis.needle 01/04/19 Hypodermic Needle] ASSESSMENT AND PLAN: 63 year old Male with history of chronic diastolic heart failure, HTN, Paroxysmal Atrial Fibrillation on Xarelto, chronic hypoxic respiratory failure sec to COPD (on 2L O2), Pulmonary HTN, DM 2, PAD 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 1. Acute on Chronic Hypoxic Respiratory Failure secondary to Acute Exacerbation of COPD - secondary to premature stopping of steroid course. CXR - no infiltrate Continue DuoNeb. Solumedrol transitioned to oral prednisone - for slow taper on discharge with close Pulmonary follow-up. Leukocytosis sec to Steroids. PFTs as out-patient with Pulm follow up. Medically stable for transfer to SNF on Supplemental O2 2L via [place] 2. Paroxysmal Atrial Fibrillation with RVR Rate well controlled on Sotalol 80 bid and Cardizem 240mg. Continue Sotalol, Cardizem and Xarelto. Cardiology follow up on discharge. 3. CAD with prior Troponin egression secondary to likely demand ischemia NM Stress 12/14 - Mild inferior ischemia. Cardiology evaluated - further testing/investigations as out-patient as per Cardio. Continue BB, TIFFANIE-I, Nitro prn. 4. Chronic diastolic heart failure - Stable. Continue Lasix. 5. DM 2 - maintain on Novolog sliding scale while on steroids along with oral antihyperglycemics (Metformin) 6. Opioid dependence/Hx substance abuse - Continue methadone maintenance 7. Pulmonary HTN - on Home O2. 8. GERD - continue PPI. 9. HTN - Continue Sotalol, Cardizem, Diovan 10. Hypophosphatemia - repleted. DVT Px - on Xarelto Dispo - Medically stable for transfer to SNF.
== END 2019-01-05 11:09 | DRG 133 ==
LOC: JER 10:05 → JERBED 13:06 → J7W 14:19
PROVIDERS: ADMIT Internal Medicine
PROC: 3E0F7GC Introduction of Other Therapeutic Substance into Respiratory Tract, Via Natural or Artificial Opening (ICD-10-PCS; principal; 2018-12-30)
DX: J96.21 Acute and chronic respiratory failure with hypoxia (principal); J18.9 Pneumonia, unspecified organism; J96.22 Acute and chronic respiratory failure with hypercapnia; I13.0 Hypertensive heart and chronic kidney disease with heart failure and stage 1 through stage 4 chronic kidney disease, or unspecified chronic kidney disease; E11.22 Type 2 diabetes mellitus with diabetic chronic kidney disease; I27.20 Pulmonary hypertension, unspecified; F11.20 Opioid dependence, uncomplicated; I50.32 Chronic diastolic (congestive) heart failure; Z99.81 Dependence on supplemental oxygen; J44.1 Chronic obstructive pulmonary disease with (acute) exacerbation; E83.39 Other disorders of phosphorus metabolism; I48.0 Paroxysmal atrial fibrillation; Z79.01 Long term (current) use of anticoagulants; E11.9 Type 2 diabetes mellitus without complications; Z79.84 Long term (current) use of oral hypoglycemic drugs; E78.5 Hyperlipidemia, unspecified; Z87.891 Personal history of nicotine dependence; Z88.0 Allergy status to penicillin; K21.9 Gastro-esophageal reflux disease without esophagitis; F32.9 Major depressive disorder, single episode, unspecified; I73.9 Peripheral vascular disease, unspecified; I25.10 Atherosclerotic heart disease of native coronary artery without angina pectoris
CPT/HCPCS: 36415; 36600; 71045-TC-FY; 71250-TC; 80048; 80053; 82550; 82803; 82962; 83735; 83880; 84100; 84484; 85025; 85027; 87070; 87077; 87205; 93005; 93010; 94640; 97116-GP; 97161-GP; 99284-25

== ENCOUNTER 2019-01-07 18:07 | Inpatient (IN) | payer OTHER ==
[2019-01-07] MEDS ORDERED: methylPREDNISolone NA SUCC 125 MG/2 ML VIAL IVPUSH ONE (18:50)
[2019-01-07] MEDS ORDERED: ALBUTEROL SO4 2.5/IPRATROPIUM 0.5 INH SOL 3 ML VIAL.NEB. NEB ONE ×2 (18:50→19:18)
--- NOTE | 2019-01-07 18:54 | PDOC ---
History of Present Illness - General History Source: Patient Exam Limitations: No Limitations - History of Present Illness Initial Comments: 01/07/19 23:11 63 yo M wit edgar hx of PAD (s/p aorta-femoral bypass), pulmonary HTN, CHF (HFpEF) , afib (on xarelto), CAD (11/2016 shows mild inferior ischemia on stress test), COPD (last exacerbation discharge 01/05/2019; currently on prednisone 20 mg daily), HTN, DM, and HLD presents to the emergency department with SOB. Per the patient, he has had SOB developing over the course of 3 days. Concurrently, he has developed diffuse abdominal pain. Per the patient, this "is the worst SOB I ever had". He endorses associative diaphoresis during this course of time. Endorses nausea without vomiting. Endorses constipation for the past 3 days and increased urinary frequency. Denies the following: fevers, visual changes, chest pain, back pain, dysuria, hematuria, diarrhea, hematochezia, and leg pain/ swelling. Allergies: PCN <Marito Butler - Last Filed: 01/08/19 00:01> <Milagro Manriquez - Last Filed: 01/08/19 00:36> - General Chief Complaint: Shortness of Breath Stated Complaint: SHORTHNESS OF BREATH Past History - Past Medical History Anemia: No Asthma: No Cancer: No Cardiac Disorders: Yes (CHF, O2 dependent) CVA: No COPD: Yes CHF: Yes Dementia: No Diabetes: Yes GI Disorders: Yes (acid reflux) Disorders: No HTN: Yes Hypercholesterolemia: Yes Liver Disease: No Seizures: No Thyroid Disease: No - Surgical History Abdominal Surgery: Yes (AAA repair) Cardiac Surgery: Yes - Immunization History Immunization Up to Date: No - Suicide/Smoking/Psychosocial Hx Smoking History: Former smoker Have you smoked in the past 12 months: No Number of Cigarettes Smoked Daily: 0 If you are a former smoker, when did you quit?: 2015 Cigars Per Day: 0 Information on smoking cessation initiated: No Hx Alcohol Use: No Drug/Substance Use Hx: No Substance Use Type: None Hx Substance Use Treatment: No <Marito Butler - Last Filed: 01/08/19 00:01> <Milagro Manriquez - Last Filed: 01/08/19 00:36> - Past Medical History Allergies/Adverse Reactions: Allergies Allergy/AdvReac Type Severity Reaction Status Date / Time Penicillins Allergy "rash" Verified 01/07/19 18:14 Home Medications: Ambulatory Orders Acetaminophen [Tylenol] 650 mg PO PRN PRN 01/07/19 Albuterol Sulfate Inhaler - [Ventolin Hfa Inhaler -] 1 - 2 inh PO QID PRN Budesonide/Formeterol Fumarate [SYMBICORT 160/4.5mcg -] 2 inh PO BID 01/07/19 Diltiazem Cd [Cardizem Cd -] 240 mg PO DAILY 01/07/19 Docusate Sodium [Colace -] 100 mg PO TID PRN 01/07/19 Furosemide [Lasix -] 40 mg PO DAILY 01/07/19 Pantoprazole Sodium [Protonix -] 40 mg PO DAILY 01/07/19 Rivaroxaban [Xarelto -] 20 mg PO DAILY 01/07/19 Sotalol HCl [Sotalol] 80 mg PO BID 01/07/19 Valsartan [Diovan] 80 mg PO DAILY 01/07/19 metFORMIN HCL [Metformin HCl] 500 mg PO BID 01/07/19 predniSONE [Deltasone -] 20 mg PO DAILY 01/07/19 Review of Systems - Review of Systems Able to Perform ROS?: Yes Is the patient limited Greenlandic proficient: No Constitutional: Yes: Diaphoresis. No: Chills, Fever, Weakness HEENTM: No: Eye Pain, Recent change in vision, Ear Pain, Nose Pain, Throat Pain , Mouth Pain Respiratory: Yes: Shortness of Breath. No: Cough, Hemoptysis Cardiac (ROS): No: Chest Pain, Lightheadedness, Palpitations, Syncope, Chest Tightness ABD/GI: Yes: Abdominal Distended, Constipated, Nausea, Poor Appetite, Poor Fluid Intake, Abdominal cramping. No: Diarrhea, Rectal Bleeding, Vomiting, Tarry Stools : Yes: Frequency. No: Burning, Dysuria, Flank Pain, Hematuria, Incontinence Musculoskeletal: No: Back Pain, Joint Pain, Neck Pain Integumentary: No: Bruising, Erythema, Rash Neurological: No: Headache, Numbness, Tingling, Tremors, Dizziness Psychiatric: No: Change in Appetite Endocrine: No: Unexplained Weight Gain Hematologic/Lymphatic: No: Anemia <[place],Marito - Last Filed: 01/08/19 00:01> *Physical Exam - Vital Signs Last Vital Signs Temp Pulse Resp BP Pulse Ox 98.9 F 109 H 24 H 138/95 92 L 01/07/19 18:22 01/07/19 18:22 01/07/19 18:22 01/07/19 18:22 01/07/19 18:22 - Physical Exam General Appearance: Yes: Nourished, Appropriately Dressed, Mild Distress. No: Alcohol on Breath, Intoxicated HEENT: positive: EOMI, FLEX, Normal Voice, Symmetrical, Pharynx Normal, Hearing Grossly Normal. negative: Pale Conjunctivae, Scleral Icterus (R), Scleral Icterus (L), Muffled/Hoarse voice, Pharyngeal Erythema, Tonsillar Exudate, Tonsillar Erythema, Nasal Congestion, Rhinorrhea, Excessive drooling Neck: positive: Trachea midline, Supple. negative: Tender, Lymphadenopathy (R) , Lymphadenopathy (L), Tender lateral, Tender midline Respiratory/Chest: positive: Lungs Clear, Normal Breath Sounds. negative: Chest Tender, Respiratory Distress, Accessory Muscle Use, Crackles, Rales, Rhonchi, Stridor, Wheezing Cardiovascular: positive: S1, S2, Tachycardia, Irregularly Irregular. negative : Systolic Murmur Gastrointestinal/Abdominal: positive: Normal Bowel Sounds, Tender (diffusely), Distended. negative: Guarding, Rebound Lymphatic: negative: Adenopathy Musculoskeletal: positive: Normal Inspection. negative: CVA Tenderness, Vertebral Tenderness Extremity: positive: Normal Capillary Refill, Normal Inspection, Normal Range of Motion. negative: Tender, Swelling, Calf Tenderness Integumentary: positive: Normal Color, Warm, Diaphoresis Neurologic: positive: wood mechanist II-XII NML intact, Alert, Normal Mood/Affect, Normal Response, Motor Strength 5/5 <Marito Butler - Last Filed: 01/08/19 00:01> - Vital Signs Last Vital Signs Temp Pulse Resp BP Pulse Ox 97.6 F 115 H 24 H 157/110 H 90 L 01/08/19 00:19 01/08/19 00:19 01/07/19 18:22 01/08/19 00:19 01/08/19 00:19 <Milagro Manriquez - Last Filed: 01/08/19 00:36> ED Treatment Course - LABORATORY CBC & Chemistry Diagram: 01/07/19 18:55 01/07/19 18:55 - RADIOLOGY Radiology Studies Ordered: Category Date Time Status CHEST X-RAY PORTABLE* [RAD] Stat Radiology 01/07/19 18:28 Ordered <Marito Butler - Last Filed: 01/08/19 00:01> - LABORATORY CBC & Chemistry Diagram: 01/07/19 18:55 01/07/19 18:55 - ADDITIONAL ORDERS Additional order review: Laboratory Results 01/07/19 01/07/19 01/07/19 21:48 21:30 18:55 Sodium 133 L Potassium 5.0 Chloride 89 L Carbon Dioxide 34 H Anion Gap 10 BUN 45 H Creatinine 1.5 H Est GFR (CKD-EPI)AfAm 56.61 Est GFR (CKD-EPI)NonAf 48.84 Random Glucose 287 H Lactic Acid 2.6 H* Calcium 9.0 Total Bilirubin 1.1 H AST 28 ALT 32 Alkaline Phosphatase 114 Creatine Kinase 50 Troponin I < 0.02 B-Natriuretic Peptide 1995.0 H Total Protein 5.8 L Albumin 2.7 L Urine Color Yellow Urine Appearance Clear Urine pH 5.0 Ur Specific [place] 1.017 Urine Protein Trace Urine Glucose (UA) 1+ H Urine Ketones Negative Urine Blood Negative Urine Nitrite Negative Urine Bilirubin Negative Urine Urobilinogen 1.0 Ur Leukocyte Esterase Negative 01/07/19 18:55 RBC 5.27 MCV 92.5 MCHC 31.3 L RDW 16.2 H MPV 10.1 Neutrophils % 94.0 H Lymphocytes % 1.6 L D Monocytes % 3.9 Eosinophils % 0.1 D Basophils % 0.4 - RADIOLOGY Radiology Studies Ordered: Category Date Time Status ABDOMEN & PELVIS CT W/O CONTR [CT] Stat CT Scan 01/07/19 19:38 Taken - Medications Given in the ED: ED Medications Discontinued Medications Generic Name Dose Route Start Last Admin Trade Name Freq PRN Reason Stop Dose Admin Albuterol/Ipratropium 1 amp 01/07/19 18:50 01/07/19 19:36 Duoneb - NEB 01/07/19 18:51 1 amp ONCE ONE Administration Aztreonam 2 gm/ Dextrose 100 mls @ 100 mls/hr 01/07/19 20:34 01/07/19 21:00 IVPB 01/07/19 21:33 100 mls/hr ONCE ONE Administration Vancomycin HCl 1,000 mg/ 250 mls @ 166.667 mls/hr 01/07/19 20:34 01/07/19 21: 58 Dextrose IVPB 01/07/19 22:03 166.667 mls/hr ONCE ONE Administration Magnesium Sulfate 2 gm 01/07/19 19:15 01/07/19 19:36 Magnesium Sulfate IVPB 01/07/19 19:16 2 gm ONCE ONE Administration Methylprednisolone Sodium Succinate 125 mg 01/07/19 18:50 01/07/19 19:36 Solu-Medrol - IVPUSH 01/07/19 18:51 125 mg ONCE ONE Administration <ManriquezMilagro - Last Filed: 01/08/19 00:36> Medical Decision Making - Medical Decision Making 63 yo M wit edgar hx of PAD (s/p aorta-femoral bypass), pulmonary HTN, CHF (HFpEF) , afib (on xarelto), CAD (11/2016 shows mild inferior ischemia on stress test), COPD (last exacerbation discharge 01/05/2019; currently on prednisone 20 mg daily), HTN, DM, and HLD presents to the emergency department with SOB. Initial vitals: Initial Vital Signs Temp Pulse Resp BP Pulse Ox 98.9 F 109 H 24 H 138/95 92 L 01/07/19 18:22 01/07/19 18:22 01/07/19 18:22 01/07/19 18:22 01/07/19 18:22 Work up: ddx: SOB: COPD exacerbation vs CHF exacerbation vs PNA vs URI (viral) abdominal pain: diffusely located. differential is broad. has had nausea for 4 days with no bowel movement for 4 days. concerned for SBO vs LBO vs diverticulitits vs colitits vs appendicitis Laboratory Tests 01/07/19 01/07/19 01/07/19 18:55 18:55 21:30 WBC 29.3 H RBC 5.27 Hgb 15.2 Hct 48.7 D MCV 92.5 MCH 28.9 MCHC 31.3 L RDW 16.2 H Plt Count 213 D MPV 10.1 Absolute Neuts (auto) 27.6 H Total Counted 100 Neutrophils % 94.0 H Neutrophils % (Manual) 86.0 H Band Neutrophils % 9.0 Lymphocytes % 1.6 L D Lymphocytes % (Manual) 2.0 L Monocytes % 3.9 Monocytes % (Manual) 3 L Eosinophils % 0.1 D Basophils % 0.4 Nucleated RBC % 0 Differential Comment Man diff performed Hypochromia 1+ Platelet Estimate Adequate Platelet Comment Anisocytosis 1+ Sodium 133 L Potassium 5.0 Chloride 89 L Carbon Dioxide 34 H Anion Gap 10 BUN 45 H Creatinine 1.5 H Est GFR (CKD-EPI)AfAm 56.61 Est GFR (CKD-EPI)NonAf 48.84 Random Glucose 287 H Lactic Acid 2.6 H* Calcium 9.0 Total Bilirubin 1.1 H AST 28 ALT 32 Alkaline Phosphatase 114 Creatine Kinase 50 Troponin I < 0.02 B-Natriuretic Peptide 1995.0 H Total Protein 5.8 L Albumin 2.7 L Urine Color Urine Appearance Urine pH Ur Specific [place] Urine Protein Urine Glucose (UA) Urine Ketones Urine Blood Urine Nitrite Urine Bilirubin Urine Urobilinogen Ur Leukocyte Esterase 01/07/19 21:48 WBC RBC Hgb Hct MCV MCH MCHC RDW Plt Count MPV Absolute Neuts (auto) Total Counted Neutrophils % Neutrophils % (Manual) Band Neutrophils % Lymphocytes % Lymphocytes % (Manual) Monocytes % Monocytes % (Manual) Eosinophils % Basophils % Nucleated RBC % Differential Comment Hypochromia Platelet Estimate Platelet Comment Anisocytosis Sodium Potassium Chloride Carbon Dioxide Anion Gap BUN Creatinine Est GFR (CKD-EPI)AfAm Est GFR (CKD-EPI)NonAf Random Glucose Lactic Acid Calcium Total Bilirubin AST ALT Alkaline Phosphatase Creatine Kinase Troponin I B-Natriuretic Peptide Total Protein Albumin Urine Color Yellow Urine Appearance Clear Urine pH 5.0 Ur Specific [place] 1.017 Urine Protein Trace Urine Glucose (UA) 1+ H Urine Ketones Negative Urine Blood Negative Urine Nitrite Negative Urine Bilirubin Negative Urine Urobilinogen 1.0 Ur Leukocyte Esterase Negative Lactic acid is elevated at 2.6. WBC elevated at 29. Patient is given aztreonam ( PCN allergy) and vancomycin for empiric coverage for infection of unknown origin until results of abdomen CT results. UA was negative. patient was given 125 mg of solumedrol, 1x duoneb. 01/08/19 23:17 Call from radiology: Abdomen pelvis CT with oral contrast shows perforated viscus with multiple distended fluid and air filled small bowel loops. Markedly thickened loop of ileum noted in the pelvis. There is an extraluminal collection of fluid and air noted in the pelvis and appears to communicate with sigmoid colon and may represent a localized contained colonic perforation. 01/08/19 23:[address] Thapa who is the production cost estimator surgery. I relayed findings to him. Per Dr. Thapa, he is requesting ICU admission with cardiology and pulmonology consults for a possible surgery in the AM. 01/08/19 23:45 ICU was called and Dr. Garcia agreed to evaluate the patient. A microblog was sent out. Douglas catheter to be ordered as well as NG tube. Awaiting call back from [facility]. 01/08/19 00:17 Patient's repeat vitals are 157/110, 115 bpm, 90% O2, and 97.6 F. Repeat lactic acid ordered. Patient stating he is in pain and tylenol IV ordered. Dr. Gacria at bedside to evaluate the patient. 01/08/19 00:28 Patient was signed out to Dr. East. Patient was accepted for ICU admission. Awaiting hospital admissions callback. <Marito Butler - Last Filed: 01/08/19 00:01> *DC/Admit/Observation/Transfer <Marito Butler - Last Filed: 01/08/19 00:01> - Discharge Dispostion Decision to Admit order: Yes <Milagro Manriquez - Last Filed: 01/08/19 00:36> Diagnosis at time of Disposition: Intestinal perforation - Discharge Dispostion Condition at time of disposition: Critical - Referrals Referrals: Mary Stiles MD [Primary Care Provider] - - Patient Instructions - Post Discharge Activity
[2019-01-07 19:08] LABS: BASO % 0.4 % (0-2.0); EOS % 0.1 % (0-4.5); HEMATOCRIT 48.7 % (35.4-49); HEMOGLOBIN 15.2 GM/dL (11.7-16.9); LYMPH % 1.6 % (8-40); MCH 28.9 pg (25.7-33.7); MCHC 31.3 g/dl (32.0-35.9); MEAN CELL VOLUME 92.5 fl (80-96); MEAN PLT VOLUME 10.1 fl (7.5-11.1); MONO % 3.9 % (3.8-10.2); PLATELET COUNT 213 K/MM3 (134-434); RBC 5.27 M/mm3 (4.00-5.60); RDW 16.2 % (11.9-15.9); WHITE BLOOD COUNT 29.3 K/mm3 (4.0-10.0)
[2019-01-07] MEDS ORDERED: MAGNESIUM SULF 50% (8.12 MEQ/2 ML-1 GM VIAL) IVPB ONE (19:15)
[2019-01-07] MEDS ORDERED: MAGNESIUM SULF 50% (8.12 MEQ/2 ML-1 GM VIAL) ONE (19:18)
[2019-01-07] MEDS ORDERED: methylPREDNISolone NA SUCC 125 MG/2 ML VIAL ONE (19:19)
[2019-01-07 19:52] LABS: ALBUMIN 2.7 g/dl (3.4-5.0); ALK PHOS 114 U/L (45-117); ANION GAP 10 MMOL/L (8-16); BILIRUBIN,TOTAL 1.1 mg/dL (0.2-1); BLOOD UREA NITROGEN 45 mg/dL (7-18); CHLORIDE 89 mmol/L (98-107); CO2 34 mmol/L (21-32); CREATININE 1.5 mg/dL (0.55-1.3); GLUCOSE,RANDOM 287 mg/dL (74-106); SGOT/AST 28 U/L (15-37); SGPT/ALT 32 U/L (13-61); SODIUM 133 mmol/L (136-145); TOT PROT 5.8 g/dl (6.4-8.2)
[2019-01-07] MEDS ORDERED: VANCOMYCIN 1,000 MG in DEXTROSE 5%-WATER - 250 ML IVPB ONE (20:34)
[2019-01-07] MEDS ORDERED: AZTREONAM 2 GM in DEXTROSE 5%-WATER 100 ML IVPB ONE (20:34)
[2019-01-07] MEDS ORDERED: AZTREONAM 1 GM VIAL (RESTRICTED TO ID) ONE (20:48)
[2019-01-07 20:49] LABS: ANISOCYTOSIS 1+; PLATELET ESTIMATE ADEQUATE
[2019-01-07] MEDS ORDERED: VANCOMYCIN 1 GRAM (PRE-DOCKED) 1,000 MG/250 ML BAG IVPB ONE (20:49)
--- NOTE | 2019-01-07 21:35 | PDOC ---
Documentation entered by Juan R Esposito SCRIBE, acting as scribe for Milagro Manriquez MD. Milagro Manriquez MD: This documentation has been prepared by the fadye, Juan R Esposito SCRIBE, under my direction and personally reviewed by me in its entirety. I confirm that the documentation accurately reflects all work, treatment, procedures, and medical decision making performed by me. Attending Attestation - Resident Resident Name: Marito Butler - ED Attending Attestation I have performed the following: I have examined & evaluated the patient, The case was reviewed & discussed with the resident, I agree w/resident's findings & plan - HPI HPI: 01/07/19 19:21 The patient is a 63 year old male, well known to the ED, with a significant past medical history of COPD, CHF, and afib (on xarelto) who presents to the emergency department with shortness of breath for 3 days. He states that this is the worst he has ever felt. He reports some associated abdominal pain, diaphoretic cold sweats. It is noted that the patient was recently discharged on 01/05 for similar complaint and, has had 5 admissions for COPD exacerbation. He also reports experiencing some nausea and urinary frequency. The patient. The patient reports that he has been compliant with all of his medications. He denies any fever, nausea, vomiting, diarrhea, constipation, chest pain. The patient denies any other complaints. - Physicial Exam PE: 01/07/19 21:09 GENERAL: Awake, alert, and fully oriented, in no acute distress HEAD: No signs of trauma EYES: PERRLA, EOMI, sclera anicteric, conjunctiva clear ENT: Auricles normal inspection, hearing grossly normal, nares patent, oropharynx clear without exudates. Moist mucosa NECK: Normal ROM, supple, no lymphadenopathy, JVD, or masses LUNGS: (+)crackles throughout. No wheezes. HEART: (+)tachycardic. Regular rhythm, normal S1 and S2, no murmurs, rubs or gallops ABDOMEN: Soft, nontender, normoactive bowel sounds. No guarding, no rebound. No masses EXTREMITIES: Normal range of motion, no edema. No clubbing or cyanosis. No cords, erythema, or tenderness NEUROLOGICAL: (+)cold sweats/diaphoretic. Cranial nerves II through XII grossly intact. Normal speech, normal gait SKIN: Warm, Dry, normal turgor, no rashes or lesions noted. - Medical Decision Making 01/07/19 21:30 Pt's abd is tender in all quadrants. Hos abd is distended and he mentions that he has not had a BM in 3 days. Pt did have a BM while in the ER however. He is cold and clammy 01/07/19 23:20 Pt wll be admitted to the hospitalist team, as PMD is Ayad Roth. We will call foundation coordinator surgery Dr. Thapa 01/07/19 23:23 Patient Name: MIKE MARCOS THIS IS A PRELIMINARY REPORT FROM [facility] DATE OF SERVICE: 2019-01-07 22:17:51 IMAGES: [id number] EXAM: CT abdomen/pelvis without contrast HISTORY: Rule out ileus COMPARISON: None. FINDINGS: *There is marked pneumoperitoneum. Findings suggest a perforated viscus. There is a small hiatal hernia noted. There are no obvious gallstones. There is no hydronephrosis. There are no renal calculi. *There are multiple distended fluid and air-filled small bowel loops. There is a markedly thickened loop of ileum noted in the pelvis. There is an extraluminal collection of fluid and air noted in the pelvis appears to communicate with sigmoid colon and may represent a localized contained colonic perforation, image 106. Diagnostic considerations would include a perforated sigmoid diverticulum. The appendix is normal in size. There is no evidence of appendicitis. Urinary bladder is unremarkable. There are no bladder calculi. 01/08/19 00:18 Pt will be placed in the ICU
[2019-01-07 22:59] LABS: URINE APPEARANCE CLEAR; URINE BILIRUBIN NEGATIVE (NEGATIVE); URINE COLOR YELLOW; URINE GLUCOSE (UA) 1+ (NEGATIVE); URINE KETONE NEGATIVE (NEGATIVE); URINE LEUK ESTERASE NEGATIVE (NEGATIVE); URINE NITRITE NEGATIVE (NEGATIVE); URINE PROTEIN TRACE (NEGATIVE)
--- NOTE | 2019-01-08 00:42 | PN ---
Teaching Attending Note Name of Resident: Norah Willingham ATTENDING PHYSICIAN STATEMENT I saw and evaluated the patient. I reviewed the resident's note and discussed the case with the resident. I agree with the resident's findings and plan as documented. SUBJECTIVE: Patient is a 63 year old man with PMH of PAD (s/p aorta-femoral bypass), AAA repair?, Penicillin allergy, pulmonary HTN, CHF (HFpEF), afib (on xarelto), opioid dependence (ex-heroin user, on Methadone), CAD (11/2016 shows mild inferior ischemia on stress test), COPD (currently on prednisone 20 mg daily and Home Oxygen 2L NC), HTN, NIDDM, and HLD presents to the ER with SOB. He has had SOB developing over the course of 3 days. Concurrently, he has developed diffuse abdominal pain. Per the patient, this "is the worst SOB I ever had". He has associated diaphoresis during this course of time as well as nausea without vomiting. Has had constipation for the past 3 days and increased urinary frequency. Denies fevers, visual changes, chest pain, back pain, dysuria, hematuria, diarrhea, hematochezia or leg pain/swelling. He was recently hospitalized at [facility] from 12/30/18 to 01/05/19 for acute COPD exacerbation, afib with RVR and RLL pneumonia. OBJECTIVE: Alert Vital Signs Period Temp Pulse Resp BP Sys/Chatterjee Pulse Ox Last 24 Hr 97.6 F-99.5 F 109-115 24 138-157/95-110 90-92 HEENT: No Jaundice, eye redness or discharge, PERRLA, EOMI. Normocephalic, atraumatic. External ears are normal and hearing is grossly intact. No nasal discharge. Neck: Supple, nontender. No palpable adenopathy or thyromegaly. No JVD Chest: Good effort. Clear to auscultation and percussion. Heart: Irregularly irregular. No S3, rub or murmur Abdomen: Distended and tympanic, soft, suprapubic tenderness and no HSM. No rebound or guarding. Normal bowel sounds. Ext: Peripheral pulses intact. No leg edema. Skin: Warm and dry. No petechiae, rash or ecchymosis. Neuro: Alert. Oriented x3. CN 2-12 grossly intact. Sensation grossly intact in all four extremities and DTR are symmetric. Psych: Appropriate mood and affect. Good insight. Current Medications Generic Name Dose Route Start Last Admin Trade Name Freq PRN Reason Stop Dose Admin Chlorhexidine Gluconate 1 applic 01/08/19 22:00 Hibiclens For Decolonization - TP HS COUNTS INCLUDE 234 BEDS AT THE [facility] Metronidazole 500 mg in 100 mls @ 100 mls/hr 01/08/19 00:24 Flagyl 500mg Premixed Ivpb - IVPB 01/08/19 01:23 ONCE ONE Insulin Aspart 0 vial 01/08/19 00:45 Novolog Vial Sliding Scale - SQ Q6H COUNTS INCLUDE 234 BEDS AT THE [facility] Protocol Morphine Sulfate 4 mg 01/08/19 00:35 Morphine Injection - IVPUSH Q4H PRN PAIN LEVEL 6-10 Mupirocin 1 applic 01/08/19 10:00 Bactroban Ointment (For Decolonization) - NS 01/13/19 09:59 BID COUNTS INCLUDE 234 BEDS AT THE [facility] Home Medications Medication Instructions Recorded Acetaminophen [Tylenol] 650 mg PO PRN PRN 01/07/19 Albuterol Sulfate Inhaler - 1 - 2 inh PO QID PRN 01/07/19 [Ventolin Hfa Inhaler -] Budesonide/Formeterol Fumarate 2 inh PO BID 01/07/19 [SYMBICORT 160/4.5mcg -] Diltiazem Cd [Cardizem Cd -] 240 mg PO DAILY 01/07/19 Docusate Sodium [Colace -] 100 mg PO TID PRN 01/07/19 Furosemide [Lasix -] 40 mg PO DAILY 01/07/19 Pantoprazole Sodium [Protonix -] 40 mg PO DAILY 01/07/19 Rivaroxaban [Xarelto -] 20 mg PO DAILY 01/07/19 Sotalol HCl [Sotalol] 80 mg PO BID 01/07/19 Valsartan [Diovan] 80 mg PO DAILY 01/07/19 metFORMIN HCL [Metformin HCl] 500 mg PO BID 01/07/19 predniSONE [Deltasone -] 20 mg PO DAILY 01/07/19 Abnormal Lab Results 01/07/19 01/07/19 01/07/19 18:55 18:55 21:30 WBC 29.3 H MCHC 31.3 L RDW 16.2 H Absolute Neuts (auto) 27.6 H Neutrophils % 94.0 H Neutrophils % (Manual) 86.0 H Lymphocytes % 1.6 L D Lymphocytes % (Manual) 2.0 L Monocytes % (Manual) 3 L Sodium 133 L Chloride 89 L Carbon Dioxide 34 H BUN 45 H Creatinine 1.5 H Random Glucose 287 H Lactic Acid 2.6 H* Total Bilirubin 1.1 H B-Natriuretic Peptide 1995.0 H Total Protein 5.8 L Albumin 2.7 L Urine Glucose (UA) 01/07/19 21:48 WBC MCHC RDW Absolute Neuts (auto) Neutrophils % Neutrophils % (Manual) Lymphocytes % Lymphocytes % (Manual) Monocytes % (Manual) Sodium Chloride Carbon Dioxide BUN Creatinine Random Glucose Lactic Acid Total Bilirubin B-Natriuretic Peptide Total Protein Albumin Urine Glucose (UA) 1+ H ASSESSMENT AND PLAN: 1. Perforated viscus/COPD exacerbation - Chronic methadone maintenance may be his risk factor for bowel perforation. CT Abdomen/pelvis with oral contrast shows perforated viscus with multiple distended fluid and air filled small bowel loops. Markedly thickened loop of ileum noted in the pelvis. There is an extraluminal collection of fluid and air noted in the pelvis and appears to communicate with sigmoid colon and may represent a localized contained colonic perforation. Surgery consulted and he is being admitted to the ICU. An NGT is being placed. Will keep him NPO, hold Xarelto, hold lasix, hydrate gently, trend lactic acid and treat with IV Linezolid, Aztreonam and Flagyl. Lactic acidosis may be partly due to metformin in the setting of MADELAINE. No acute abnormality on CXR. Will treat COPD exacerbation with IV solumedrol, duoneb PRN and oxygen. EKG shows afib with RVR and diffuse T wave inversion and ST depression. Initial troponin is negative. Will give IV Lopressor to control rate and repeat EKG and troponin to rule out ACS. Will need to verify his methadone dose during the day. Consult vocational rehabilitation specialist to explore options going forward, since continued use of methadone may not be ideal for him. 2. Hypoalbuminemia - Possibly due to combined effects of malnutrition and inflammation associated with comorbid chronic conditions. Will ensure adequate dietary protein intake and also consult occupational therapist per diem. 3. DM For now, we will hold the home diabetes drugs and implement sliding scale insulin regimen. Provide comprehensive diabetes care with patient teaching and counseling about the importance of adherence to prescribed diabetes regimen, euglycemia, eye care and foot care. 4. MADELAINE - Cause unclear, though excessive diuresis is a likely culprit. BUN/Cr was 33/0.9 upon discharge on 01/05/19. Will rule out urinary outlet obstruction, monitor urine output, check CPK, hold lasix and consult nephrology. Avoid nephrotoxic agents such as NSAIDS, aminoglycosides, contrast dyes and certain Alternative medicine products. 5. Uncontrolled Hypertension - Restart outpatient antihypertensive drugs and revise regimen to ensure smooth [id number] good BP control. Nonpharmacologic measures to control hypertension like weight loss, salt restriction and exercise discussed. 6. DVT prophylaxis - While xarelto is on hold for possible surgery, will use SCDs, TEDs 7. Advance directives - Full code
[2019-01-08] MEDS ORDERED: ALBUTEROL SO4 8 GM HFA INHALER IH PRN ×3 (00:43→02:14)
[2019-01-08] MEDS ORDERED: dilTIAZem HCL 50 MG/10 ML - 10 ML VIAL IVPUSH PRN ×2 (00:46→11:50)
[2019-01-08] MEDS ORDERED: morphine SULFATE 4 MG/ML VIAL ONE ×2 (00:57→05:11)
--- NOTE | 2019-01-08 00:59 | CONSULT ---
Consult Consult Specialty:: Pulm/CCM Reason for Consultation:: Peumoperitonium w/ possible bowel perforation - History of Present Illness Chief Complaint: abd pain History of Present Illness: 63 yo M h/o aortic PAD s/p aorta-femoral [place] [address] Cunningham, pulmonary HTN, HFpEF, afib on xarelto, CAD with mild inferior ischemia on stress test in 2017, COPD w/ multiple exacerbations last discharge 01/05/2019 currently on prednisone taper 30 mg daily, HTN, DM, and HLD p/w shortness of breath and abd pain. Patient was admitted from 12/30 to 01/05 for COPD exacerbation. He's discharged on predisone taper currently on 30mg daily till 01/10. Per patient, his cough and shortness of breath are getting better. However, he's having worsening abd pain, located in lower quadrants, 06/08, travels L to R and R to L , associated with alternating diarrhea and constipation. Never had EGD or colonoscopy. denies NSAID use, fever, chills, dizziness, n/v, urinary symptoms. - History Source History Provided By: Patient Limitations to Obtaining History: No Limitations - Past Medical History Cardio/Vascular: Yes: AFIB, CHF, HTN, Hyperlipdemia Pulmonary: Yes: COPD, O2 Dependent Psych: Yes: Addictions (opiates now on methadone), Depression Endocrine: Yes: Diabetes Mellitus - Past Surgical History Past Surgical History: Yes: Bypass (Abdominal aorta) - Alcohol/Substance Use Hx Alcohol Use: No History of Substance Use: reports: Heroin - Smoking History Smoking history: Former smoker Have you smoked in the past 12 months: No Aproximately how many cigarettes per day: 0 If you are a former smoker, when did you quit?: 2016 - Social History Usual Living Arrangement: Alone ADL: Independent History of Recent Travel: No Home Medications - Allergies Allergies/Adverse Reactions: Allergies Allergy/AdvReac Type Severity Reaction Status Date / Time Penicillins Allergy "rash" Verified 01/07/19 18:14 - Home Medications Home Medications: Ambulatory Orders Acetaminophen [Tylenol] 650 mg PO PRN PRN 01/07/19 Albuterol Sulfate Inhaler - [Ventolin Hfa Inhaler -] 1 - 2 inh PO QID PRN Budesonide/Formeterol Fumarate [SYMBICORT 160/4.5mcg -] 2 inh PO BID 01/07/19 Diltiazem Cd [Cardizem Cd -] 240 mg PO DAILY 01/07/19 Docusate Sodium [Colace -] 100 mg PO TID PRN 01/07/19 Furosemide [Lasix -] 40 mg PO DAILY 01/07/19 Pantoprazole Sodium [Protonix -] 40 mg PO DAILY 01/07/19 Rivaroxaban [Xarelto -] 20 mg PO DAILY 01/07/19 Sotalol HCl [Sotalol] 80 mg PO BID 01/07/19 Valsartan [Diovan] 80 mg PO DAILY 01/07/19 metFORMIN HCL [Metformin HCl] 500 mg PO BID 01/07/19 predniSONE [Deltasone -] 20 mg PO DAILY 01/07/19 Family Disease History - Family Disease History Family Disease History: Heart Disease: Father (NM), CA: Sister (Cervical CA) Review of Systems - Review of Systems Constitutional: denies: Chills, Diaphoresis, Fever Cardiovascular: reports: Shortness of Breath. denies: Chest Pain, Palpitations Respiratory: reports: Cough Gastrointestinal: reports: Abdominal Pain, Constipation, Diarrhea Genitourinary: denies: Burning, Discharge Neurological: denies: Change in LOC, Confusion Physical Exam Vital Signs: Vital Signs Temperature 97.6 F 01/08/19 00:19 Pulse Rate 115 H 01/08/19 00:19 Respiratory Rate 24 H 01/07/19 18:22 Blood Pressure 157/110 H 01/08/19 00:19 O2 Sat by Pulse Oximetry (%) 90 L 01/08/19 00:19 Constitutional: Yes: No Distress Cardiovascular: Yes: Tachycardia, Pulse Irregular, S1, S2. No: Murmur Respiratory: Yes: CTA Bilaterally Gastrointestinal: Yes: Distention, Hypoactive Bowel Sounds, Tenderness Extremities: Yes: Cool Edema: No Neurological: Yes: Alert, Oriented Labs: CBC, BMP 01/07/19 18:55 01/07/19 18:55 Imaging - Results X-ray: Report Reviewed, Image Reviewed Assessment/Plan 63 yo M h/o aortic PAD s/p aorta-femoral [place] [address] Cunningham, pulmonary HTN, HFpEF, afib on xarelto, CAD with mild inferior ischemia on stress test in 2017, COPD w/ multiple exacerbations last discharge 01/05/2019 currently on prednisone taper 30 mg daily, HTN, DM, and HLD admitted to the ICU for pneumoperitonium likely 2/2 perforated viscus. GI: pneumoperitonium likely 2/2 perforated viscus - per [id number], marked pneumoperitoneum which suggests a perforated viscus - hemodynamically stable and neurologically intact, no sign of hypovolemic shock - surgery on board, to OR tomorrow after pulm and cardio clearance - received vanco, flagyl and aztreonam ID: severe sepsis with leukocytosis and elevated lactic acid - leukocytosis likely due to steroid but cannot r/o sepsis from perforated viscus - will cont. flagyl and aztronam for anaerobes and gram negatives coverage - cont. to trend lactic acid Pulm: COPD on home o2 2L, Pulm HTN - cont. supplemental O2 to maintain sat between 88 to 94% - CXR unremarkable for infiltrate and effusion - Cont. symbicort and albuterol - Cont. duoneb QID - Cont. medrol 30mg daily CV: a-fib, CAD, HLD, HLD - hold xarelto and other BP meds - cardizem 10mg IVPUSH PRN for rate control Renal: MADELAINE - normal Cr baseline - avoid TIFFANIE-I, ARB, NSAID - NS @ 75cc/hr Endo: DM - sliding scale - BGM q6h FEN - NS - replete as needed - NPO Prophylaxis - SCD - Protonix (home med) Semaj Garcia MD ICU resident Visit type - Emergency Visit Emergency Visit: Yes ED Registration Date: 01/08/19 Care time: The patient presented to the Emergency Department on the above date and was hospitalized for further evaluation of their emergent condition. - New Patient This patient is new to me today: Yes Date on this admission: 01/08/19 - Critical Care Critical Care patient: Yes Total Critical Care Time (in minutes): 35 Critical Care Statement: The care of this patient involved high complexity decision making to prevent further life threatening deterioration of the patient 's condition and/or to evaluate & treat vital organ system(s) failure or risk of failure.
[2019-01-08] MEDS: morphine CARPU-JECT 4 MG/1 ML DISP.SYRIN IVPUSH PRN ×2 (01:05→05:14)
[2019-01-08] MEDS ORDERED: INSULIN (NOVOLOG) ASPART 100 UNITS/ML 10ML VIAL ONE (01:06)
[2019-01-08] MEDS: INSULIN SLIDING SCALE (NOVOLOG) 1 VIAL SQ SCH ×4 (01:09→18:10)
--- NOTE | 2019-01-08 01:37 | HP ---
CHIEF COMPLAINT: SOB, abdominal pain x 3 days PCP: Dr. Sarah Brock HISTORY OF PRESENT ILLNESS: 63 y/o M with PMH COPD (on 2L 02), HFpEF (last EF 10/2018: 60-65%), paraoxysmal afib (on xarelto), PAD (s/p aorta- fem bypass), pulm HTN, CAD, NIDDM, opiod dependence (on methadone), who presents to the ED c/o SOB over the past three days. As per pt, during this time pt has felt SOB at rest. States that he is unable to perform small movements without feeling as if he needs to catch his breath. Has been compliant with past meds on last d/c, which include his prednisone taper. Currently on 30mg qd. Has also been compliant w/his lasix. Pt has also noted increased constipation over the last three days, nausea (without emesis), diaphoresis and decreased appetite. Has also had a burning sensation in his throat. Otherwise, no recent illnesses, without DIAZ, fever, chills, chest pain or pressure, or changes in urinary function. Has never had a colonoscopy, or EGD, denies any past hx of ulcers or NSAID use. Pt was recently d/c 01/04 for acute on chronic hypoxic RF 2/2 copd exacerbation. Past cx from visits have grown yeast in sputum, and staph, entero, aerococcus and brevibacterium in blood. Has been at rehab over last few days, after his d/ c. ER course was notable for: (1) duoneb x 1 (2) azactam, flagyl, vanco (3) medrol 125mg (4) small BM while in ER Recent Travel: denies PAST MEDICAL HISTORY: as above PAST SURGICAL HISTORY: aorta-fem bypass, carpal tunnel sx, R arm sx Social History: lives w Smoking: quit 6 yrs ago. used to smoke 1 ppd x 40 yrs Alcohol: socially Drugs: heroin in past, on methadone currently Family History: denies Allergies Penicillins Allergy (Verified 01/07/19 18:14) "rash" HOME MEDICATIONS: Home Medications Medication Instructions Recorded Acetaminophen [Tylenol] 650 mg PO PRN PRN 01/07/19 Albuterol Sulfate Inhaler - 1 - 2 inh PO QID PRN 01/07/19 [Ventolin Hfa Inhaler -] Budesonide/Formeterol Fumarate 2 inh PO BID 01/07/19 [SYMBICORT 160/4.5mcg -] Diltiazem Cd [Cardizem Cd -] 240 mg PO DAILY 01/07/19 Docusate Sodium [Colace -] 100 mg PO TID PRN 01/07/19 Furosemide [Lasix -] 40 mg PO DAILY 01/07/19 Pantoprazole Sodium [Protonix -] 40 mg PO DAILY 01/07/19 Rivaroxaban [Xarelto -] 20 mg PO DAILY 01/07/19 Sotalol HCl [Sotalol] 80 mg PO BID 01/07/19 Valsartan [Diovan] 80 mg PO DAILY 01/07/19 metFORMIN HCL [Metformin HCl] 500 mg PO BID 01/07/19 predniSONE [Deltasone -] 30 mg PO DAILY 01/07/19 states on same meds as previous visit REVIEW OF SYSTEMS CONSTITUTIONAL: Absent: fever, chills, diaphoresis, generalized weakness, malaise, loss of appetite, weight change HEENT: Absent: rhinorrhea, nasal congestion, throat pain, throat swelling, difficulty swallowing, mouth swelling, ear pain, eye pain, visual changes CARDIOVASCULAR: Absent: chest pain, syncope, palpitations, irregular heart rate, lightheadedness , peripheral edema RESPIRATORY: +SOB Absent: cough, shortness of breath, dyspnea with exertion, orthopnea, wheezing, stridor, hemoptysis GASTROINTESTINAL: +abdom pain, nausea, constipation Absent: abdominal pain, abdominal distension, nausea, vomiting, diarrhea, constipation, melena, hematochezia GENITOURINARY: Absent: dysuria, frequency, urgency, hesitancy, hematuria, flank pain, genital pain MUSCULOSKELETAL: Absent: myalgia, arthralgia, joint swelling, back pain, neck pain SKIN: Absent: rash, itching, pallor HEMATOLOGIC/IMMUNOLOGIC: Absent: easy bleeding, easy bruising, lymphadenopathy, frequent infections ENDOCRINE: Absent: unexplained weight gain, unexplained weight loss, heat intolerance, cold intolerance NEUROLOGIC: Absent: headache, focal weakness or paresthesias, dizziness, unsteady gait, seizure, mental status changes, bladder or bowel incontinence PSYCHIATRIC: Absent: anxiety, depression, suicidal or homicidal ideation, hallucinations. PHYSICAL EXAMINATION Vital Signs 01/08/19 00:19 Temperature 97.6 F Pulse Rate Pulse Rate [ 115 H Left Radial] Respiratory Rate Blood Pressure Blood Pressure 157/110 H [Left Arm] O2 Sat by Pulse 90 L Oximetry (%) GENERAL: Resting comfortably. Awake, alert, and fully oriented, in no acute distress.on 2L NC HEAD: Normal with no signs of trauma. EYES: Pupils equal, round and reactive to light, extraocular movements intact, sclera anicteric, conjunctiva clear. EARS, NOSE, THROAT: Ears normal, nares patent, oropharynx clear without exudates. Moist mucous membranes. NECK: Normal range of motion, supple LUNGS: Breath sounds equal, clear to auscultation bilaterally. No wheezes, and no crackles. No accessory muscle use. HEART: +irregularly irregular, without murmur, rub or gallop. ABDOMEN: Soft, +distended , hypoactive bowel sounds, no guarding LOWER EXTREMITIES: 2+ pt pulses, warm, well-perfused. No calf tenderness. No peripheral edema. NEUROLOGICAL: Cranial nerves II-XII intact. Normal speech. PSYCHIATRIC: Cooperative. Laboratory Tests 01/07/19 01/07/19 01/07/19 18:55 18:55 21:30 WBC 29.3 H Hgb 15.2 Hct 48.7 D Plt Count 213 D Sodium 133 L Potassium 5.0 Chloride 89 L Carbon Dioxide 34 H BUN 45 H Creatinine 1.5 H Random Glucose 287 H Lactic Acid 2.6 H* B-Natriuretic Peptide 1995.0 H 01/08/19 00:22 Random Glucose Lactic Acid 1.3 B-Natriuretic Peptide EKG: +afib w/RVR. rate 128bpm. deepening of TWI in v6 compared to prev. qtc 481ms CTAP w/o cont (prelim): marked pneumoperitoneum. findings suggest a perforated viscus. small hiatal hernia. no hydro, no renal calculi. multiple distended fluid and air filled small bowel loops. marked thickening of loop of ileum in pelvis. extraluminal fluid and air in pelvis that communicates w the sigmoid colon may represent colonic perforation. dx considerations would include a perforate sigmoid diverticulum. await official read ASSESSMENT/PLAN: 63 y/o M with PMH COPD (on 2L 02), HFpEF (last EF 10/2018: 60-65%), paraoxysmal afib (on xarelto), PAD (s/p aorta- fem bypass), pulm HTN, CAD, NIDDM, opiod dependence (on methadone), who presents to the ED c/o SOB over the past three days. #Pneumoperitoneum #Possible perforated viscus -possible 2/2 perf sigmoid diverticulum. however has not had recent instrumentation -as per sx, for OR in AM after cardio and pulm clearance. T+S, NPO, coags -gi broad spectrum coverage gram (-) and anaerobes. c/w azactam + flagyl. pen allergic -lactic has normalized -cardio: Dr. Burns -GI: Dr. Merlos -ID: Dr. Jackson #possible SBO: distended fluid and air bowel loops -c/w IVF, lactic has normalized -NGT placement for decompression #leukocytosis -may be 2/2 chronic steroids or could be 2/2 sepsis -cont to monitor #COPD -on 2L home 02; continue -does not appear to be in exac now -c/w symbicort, duonebs, nebs PRN -c/w medrol 30 qd #afib w/RVR #CAD -c/w cardiazem IVP for rate control -sotalol rhythm control -K>4, Mg>2 -hold xarelto, as for OR #HFpEF -appears euvolemic -hold lasix, as MADELAINE #MADELAINE likely 2/2 diuretics -hold diovan, lasix -c/w gentle IVF. cont to trend #NIDDM -ISS, BGM q6h #opiod dependence -on methadone high dose. will need to d/w Dr. Robertson - detox #F/E/N IV NS 75 cc/hr cont to follow lytes NPO #PPX DVT: SCD's GI: protonix #Dispo admitted to icu Visit type - Emergency Visit Emergency Visit: Yes ED Registration Date: 01/08/19 Care time: The patient presented to the Emergency Department on the above date and was hospitalized for further evaluation of their emergent condition. - New Patient This patient is new to me today: Yes Date on this admission: 01/08/19 - Critical Care Critical Care patient: Yes Total Critical Care Time (in minutes): 45 Critical Care Statement: The care of this patient involved high complexity decision making to prevent further life threatening deterioration of the patient 's condition and/or to evaluate & treat vital organ system(s) failure or risk of failure.
[2019-01-08] MEDS ORDERED: SODIUM CHLORIDE 1,000 ML IV SCH ×2 (01:45→14:30)
[2019-01-08] MEDS: dilTIAZem HCL 50 MG/10 ML - 10 ML VIAL IVPUSH PRN ×2 (02:01→05:50)
[2019-01-08] MEDS ORDERED: LIDOCAINE HCL 2% JELLY (5 ML/TUBE) ONE (02:17)
[2019-01-08] MEDS ORDERED: ENALAPRILAT DIHYDRATE 1.25 MG/1 ML VIAL IVPB SCH (03:00)
[2019-01-08] MEDS ORDERED: AZTREONAM 2 GM in DEXTROSE 5%-WATER 100 ML IVPB ONE (06:00)
[2019-01-08 06:26] VITALS: BMI 27.3
[2019-01-08 06:51] LABS: BASO % 0.4 % (0-2.0); EOS % 0.1 % (0-4.5); HEMATOCRIT 47.8 % (35.4-49); HEMOGLOBIN 15.6 GM/dL (11.7-16.9); LYMPH % 1.3 % (8-40); MCH 29.9 pg (25.7-33.7); MCHC 32.5 g/dl (32.0-35.9); MEAN CELL VOLUME 91.8 fl (80-96); MEAN PLT VOLUME 10.3 fl (7.5-11.1); MONO % 3.8 % (3.8-10.2); NEUT % 94.4 % (42.8-82.8); PLATELET COUNT 241 K/MM3 (134-434); RBC 5.21 M/mm3 (4.00-5.60); RDW 16.6 % (11.9-15.9); WHITE BLOOD COUNT 23.7 K/mm3 (4.0-10.0)
[2019-01-08] MEDS ORDERED: dilTIAZem HCL 50 MG/10 ML - 10 ML VIAL IVPUSH ONE (07:00)
[2019-01-08 07:02] LABS: INR 1.49 (0.83-1.09); PROTHROMBIN TIME (PATIENT) 17.7 SEC (9.7-13.0)
[2019-01-08 07:04] LABS: ACTIVATED PTT 27.3 SECONDS (25.2-36.5)
[2019-01-08 07:10] LABS: ARTERIAL BLD GAS O2 SATURATION 86.7 % (95-98); ARTERIAL BLOOD GAS BASE EXCESS 8.8 meq/l (-2-2); ARTERIAL BLOOD GAS PCO2 43.4 mmHg (35-45); ARTERIAL BLOOD GAS PO2 56.7 mmHg (80-105); ARTERIAL BLOOD GAS pH 7.49 (7.35-7.45)
[2019-01-08 07:13] LABS: ALLENS TEST POSITIVE
[2019-01-08 07:17] LABS: ALBUMIN 2.5 g/dl (3.4-5.0); CALCIUM 9.1 mg/dL (8.5-10.1); CREATININE 1.4 mg/dL (0.55-1.3); MAGNESIUM 2.5 mg/dL (1.8-2.4); POTASSIUM 4.1 mmol/L (3.5-5.1); TOT PROT 5.6 g/dl (6.4-8.2)
[2019-01-08] MEDS ORDERED: METOPROLOL TARTRATE 5 MG/5 ML VIAL IVPUSH ONE (07:53)
--- NOTE | 2019-01-08 07:53 | PN ---
Physical Exam: SUBJECTIVE: Patient seen and examined at bedside. Afib with RVR overnight between 0500 and 0600. Given diltiazem 10mg x2. Pt complaining of abdominal pain and SOB. OBJECTIVE: Vital Signs Period Temp Pulse Resp BP Sys/Chatterjee Pulse Ox Last 24 Hr 97.6 F-99.5 F 109-155 18-27 127-157/95-120 90-95 GENERAL: The patient is awake, alert, and fully oriented, in no acute distress. HEAD: Normal with no signs of trauma. LUNGS: Breath sounds equal, clear to auscultation bilaterally, no wheezes, no crackles, no accessory muscle use. HEART: Irregularly irregular, tachycardic, S1, S2 without murmur, rub or gallop. ABDOMEN: Diffuse abdominal tenderness, rebound, decreased abdominal sounds EXTREMITIES: 1+ pulses, warm, well-perfused, no edema. NEUROLOGICAL: Cranial nerves II through XII grossly intact. Normal speech, gait not observed. SKIN: Warm, dry, normal turgor, old needle hastings Laboratory Results - last 24 hr 01/07/19 01/07/19 01/07/19 18:55 18:55 21:30 WBC 29.3 H RBC 5.27 Hgb 15.2 Hct 48.7 D MCV 92.5 MCH 28.9 MCHC 31.3 L RDW 16.2 H Plt Count 213 D MPV 10.1 Absolute Neuts (auto) 27.6 H Total Counted 100 Neutrophils % 94.0 H Neutrophils % (Manual) 86.0 H Band Neutrophils % 9.0 Lymphocytes % 1.6 L D Lymphocytes % (Manual) 2.0 L Monocytes % 3.9 Monocytes % (Manual) 3 L Eosinophils % 0.1 D Basophils % 0.4 Nucleated RBC % 0 Differential Comment Man diff performed Hypochromia 1+ Platelet Estimate Adequate Platelet Comment Anisocytosis 1+ PT with INR INR PTT (Actin FS) Puncture Site ABG pH ABG pCO2 at Pt Temp ABG pO2 at Pt Temp ABG HCO3 ABG O2 Sat (Measured) ABG O2 Content ABG Base Excess Naveen Test O2 Delivery Device Oxygen Flow Rate Sodium 133 L Potassium 5.0 Chloride 89 L Carbon Dioxide 34 H Anion Gap 10 BUN 45 H Creatinine 1.5 H Est GFR (CKD-EPI)AfAm 56.61 Est GFR (CKD-EPI)NonAf 48.84 POC Glucometer Random Glucose 287 H Lactic Acid 2.6 H* Calcium 9.0 Magnesium Total Bilirubin 1.1 H AST 28 ALT 32 Alkaline Phosphatase 114 Creatine Kinase 50 Troponin I < 0.02 B-Natriuretic Peptide 1995.0 H Total Protein 5.8 L Albumin 2.7 L Urine Color Urine Appearance Urine pH Ur Specific Louann Urine Protein Urine Glucose (UA) Urine Ketones Urine Blood Urine Nitrite Urine Bilirubin Urine Urobilinogen Ur Leukocyte Esterase Blood Type Antibody Screen 01/07/19 01/08/19 01/08/19 21:48 00:22 01:03 WBC RBC Hgb Hct MCV MCH MCHC RDW Plt Count MPV Absolute Neuts (auto) Total Counted Neutrophils % Neutrophils % (Manual) Band Neutrophils % Lymphocytes % Lymphocytes % (Manual) Monocytes % Monocytes % (Manual) Eosinophils % Basophils % Nucleated RBC % Differential Comment Hypochromia Platelet Estimate Platelet Comment Anisocytosis PT with INR INR PTT (Actin FS) Puncture Site ABG pH ABG pCO2 at Pt Temp ABG pO2 at Pt Temp ABG HCO3 ABG O2 Sat (Measured) ABG O2 Content ABG Base Excess Naveen Test O2 Delivery Device Oxygen Flow Rate Sodium Potassium Chloride Carbon Dioxide Anion Gap BUN Creatinine Est GFR (CKD-EPI)AfAm Est GFR (CKD-EPI)NonAf POC Glucometer 312 Random Glucose Lactic Acid 1.3 Calcium Magnesium Total Bilirubin AST ALT Alkaline Phosphatase Creatine Kinase Troponin I B-Natriuretic Peptide Total Protein Albumin Urine Color Yellow Urine Appearance Clear Urine pH 5.0 Ur Specific Louann 1.017 Urine Protein Trace Urine Glucose (UA) 1+ H Urine Ketones Negative Urine Blood Negative Urine Nitrite Negative Urine Bilirubin Negative Urine Urobilinogen 1.0 Ur Leukocyte Esterase Negative Blood Type Antibody Screen 01/08/19 01/08/19 01/08/19 01:42 01:42 05:30 WBC 23.7 H RBC 5.21 Hgb 15.6 Hct 47.8 MCV 91.8 MCH 29.9 MCHC 32.5 RDW 16.6 H Plt Count 241 MPV 10.3 Absolute Neuts (auto) 22.4 H Total Counted Neutrophils % 94.4 H Neutrophils % (Manual) Band Neutrophils % Lymphocytes % 1.3 L Lymphocytes % (Manual) Monocytes % 3.8 Monocytes % (Manual) Eosinophils % 0.1 Basophils % 0.4 Nucleated RBC % 0 Differential Comment Hypochromia Platelet Estimate Platelet Comment Anisocytosis PT with INR Cancelled INR Cancelled PTT (Actin FS) Cancelled Puncture Site ABG pH ABG pCO2 at Pt Temp ABG pO2 at Pt Temp ABG HCO3 ABG O2 Sat (Measured) ABG O2 Content ABG Base Excess Naveen Test O2 Delivery Device Oxygen Flow Rate Sodium Potassium Chloride Carbon Dioxide Anion Gap BUN Creatinine Est GFR (CKD-EPI)AfAm Est GFR (CKD-EPI)NonAf POC Glucometer Random Glucose Lactic Acid Calcium Magnesium Total Bilirubin AST ALT Alkaline Phosphatase Creatine Kinase Troponin I B-Natriuretic Peptide Total Protein Albumin Urine Color Urine Appearance Urine pH Ur Specific Louann Urine Protein Urine Glucose (UA) Urine Ketones Urine Blood Urine Nitrite Urine Bilirubin Urine Urobilinogen Ur Leukocyte Esterase Blood Type O POSITIVE Antibody Screen Negative 01/08/19 01/08/19 01/08/19 05:30 05:30 05:41 WBC RBC Hgb Hct MCV MCH MCHC RDW Plt Count MPV Absolute Neuts (auto) Total Counted Neutrophils % Neutrophils % (Manual) Band Neutrophils % Lymphocytes % Lymphocytes % (Manual) Monocytes % Monocytes % (Manual) Eosinophils % Basophils % Nucleated RBC % Differential Comment Hypochromia Platelet Estimate Platelet Comment Anisocytosis PT with INR 17.70 H INR 1.49 H PTT (Actin FS) 27.3 Puncture Site ABG pH ABG pCO2 at Pt Temp ABG pO2 at Pt Temp ABG HCO3 ABG O2 Sat (Measured) ABG O2 Content ABG Base Excess Naveen Test O2 Delivery Device Oxygen Flow Rate Sodium 134 L Potassium 4.1 Chloride 91 L Carbon Dioxide 34 H Anion Gap 9 BUN 45 H Creatinine 1.4 H Est GFR (CKD-EPI)AfAm 61.53 Est GFR (CKD-EPI)NonAf 53.09 POC Glucometer 232 Random Glucose 232 H Lactic Acid Calcium 9.1 Magnesium 2.5 H Total Bilirubin 1.0 AST 27 ALT 32 Alkaline Phosphatase 108 Creatine Kinase 20 L Troponin I B-Natriuretic Peptide Total Protein 5.6 L Albumin 2.5 L Urine Color Urine Appearance Urine pH Ur Specific Louann Urine Protein Urine Glucose (UA) Urine Ketones Urine Blood Urine Nitrite Urine Bilirubin Urine Urobilinogen Ur Leukocyte Esterase Blood Type Antibody Screen 01/08/19 06:38 WBC RBC Hgb Hct MCV MCH MCHC RDW Plt Count MPV Absolute Neuts (auto) Total Counted Neutrophils % Neutrophils % (Manual) Band Neutrophils % Lymphocytes % Lymphocytes % (Manual) Monocytes % Monocytes % (Manual) Eosinophils % Basophils % Nucleated RBC % Differential Comment Hypochromia Platelet Estimate Platelet Comment Anisocytosis PT with INR INR PTT (Actin FS) Puncture Site Right radial ABG pH 7.49 H ABG pCO2 at Pt Temp 43.4 ABG pO2 at Pt Temp 56.7 L ABG HCO3 33.0 H ABG O2 Sat (Measured) 86.7 L ABG O2 Content 19.7 ABG Base Excess 8.8 H Naveen Test Positive O2 Delivery Device Nasal Oxygen Flow Rate 3l Sodium Potassium Chloride Carbon Dioxide Anion Gap BUN Creatinine Est GFR (CKD-EPI)AfAm Est GFR (CKD-EPI)NonAf POC Glucometer Random Glucose Lactic Acid Calcium Magnesium Total Bilirubin AST ALT Alkaline Phosphatase Creatine Kinase Troponin I B-Natriuretic Peptide Total Protein Albumin Urine Color Urine Appearance Urine pH Ur Specific Louann Urine Protein Urine Glucose (UA) Urine Ketones Urine Blood Urine Nitrite Urine Bilirubin Urine Urobilinogen Ur Leukocyte Esterase Blood Type Antibody Screen Active Medications Generic Name Dose Route Start Last Admin Trade Name Freq PRN Reason Stop Dose Admin Albuterol Sulfate 1 puff 01/08/19 02:14 01/08/19 03:57 Ventolin Hfa Inhaler - IH 1 puff Q6H PRN Administration SHORT OF BREATH/WHEEZING Albuterol/Ipratropium 1 amp 01/08/19 08:00 Duoneb - NEB RQID DOMINIC Budesonide/Formoterol Fumarate 2 puff 01/08/19 10:00 Symbicort 160/4.5mcg - IH BID DOMINIC Chlorhexidine Gluconate 1 applic 01/08/19 22:00 Hibiclens For Decolonization - TP HS DOMINIC Diltiazem HCl 10 mg 01/08/19 01:45 01/08/19 05:50 Cardizem Injection - IVPUSH 10 mg Q4H PRN Administration TACHYCARDIA Sodium Chloride 1,000 mls @ 75 mls/hr 01/08/19 01:45 01/08/19 01:46 Normal Saline - IV 75 mls/hr ASDIR DOMINIC Administration Metronidazole 500 mg in 100 mls @ 100 mls/hr 01/08/19 09:00 Flagyl 500mg Premixed Ivpb - IVPB Q8H-IV DOMINIC Insulin Aspart 0 vial 01/08/19 00:45 01/08/19 05:47 Novolog Vial Sliding Scale - SQ 4 units Q6H DOMINIC Administration Protocol Methylprednisolone Sodium Succinate 30 mg 01/08/19 10:00 Solu-Medrol - IVPUSH DAILY [facility] Morphine Sulfate 4 mg 01/08/19 00:35 01/08/19 05:14 Morphine Injection - IVPUSH 4 mg Q4H PRN Administration PAIN LEVEL 6-10 Mupirocin 1 applic 01/08/19 10:00 Bactroban Ointment (For Decolonization) - NS 01/13/19 09:59 BID [facility] ASSESSMENT/PLAN: 63 yo M with PMH of Aortic PAD s/p aorta-femoral [place] [address] Cunningham, pulmonary HTN, HFpEF, afib on xarelto, CAD with mild inferior ischemia on stress test in 2017, COPD w/ multiple exacerbations last discharge 01/05/2019 currently on prednisone taper 30 mg daily, HTN, DM, and HLD admitted to the ICU for pneumoperitonium likely 2/2 perforated viscus. CARDIO/VASC -History of Afib, CAD, HLD, HLD -Holding Xarelto -Cardiology consulting (Dr. Graham) -Cardizem drip -Cardiazem 20mg ivp prn for RVR -Lopressor 5mg prn for rate control -Vasotec 1.25mg prn for bp control PULM -History of COPD on home o2 2L, Pulm HTN -Supplemental O2 to maintain sat between 88 to 94% -CXR unremarkable for infiltrate and effusion -Symbicort and albuterol -Atrovent QID -Medrol 30mg daily ENDO -History of DM -Insulin ss -BGM Q6H GI -Pneumoperitonium likely 2/2 perforated viscus -CT: marked pneumoperitoneum which suggests a perforated viscus -No sign of hypovolemic shock -Surgery (Dr. Thapa) on board, to OR today -GI (Dr. Merlos) consulting -Currently on Flagyl RENAL -MADELAINE -Cr at baseline, slightly elevated -Avoid TIFFANIE-I, ARB, NSAID, nephrotoxic agents -Maintenance fluids NS at 75cc/hr -Urine lytes -I/O -Will trend ID -Leukocytosis and elevated lactic acid -Leukocytosis likely due to steroid but cannot r/o sepsis from perforated viscus -Blood cultures pending -Continue Flagyl and aztronam gram negative and anaerobic coverage -trend lactic acid -ID consulted FEN -NS -replete as needed -NPO Prophylaxis -SCD -Protonix -Hold AC Dispo Patient will be going to the OR at 0930 and will return to ICU after surgery. Visit type - Emergency Visit Emergency Visit: Yes ED Registration Date: 01/08/19 Care time: The patient presented to the Emergency Department on the above date and was hospitalized for further evaluation of their emergent condition. - New Patient This patient is new to me today: Yes Date on this admission: 01/08/19 - Critical Care Critical Care patient: Yes Total Critical Care Time (in minutes): 40 Critical Care Statement: The care of this patient involved high complexity decision making to prevent further life threatening deterioration of the patient 's condition and/or to evaluate & treat vital organ system(s) failure or risk of failure.
[2019-01-08] MEDS ORDERED: ALBUTEROL SO4 2.5/IPRATROPIUM 0.5 INH SOL 3 ML VIAL.NEB. NEB SCH (08:00)
--- NOTE | 2019-01-08 08:37 | CONSULT ---
- Consultation REQUESTING PROVIDER: CONSULT REQUEST: We have been asked to surgically evaluate this patient for ( specify). PCP:Aubrie Suarez MD HISTORY OF PRESENT ILLNESS: CTSP who is a 63 y/o mlae w/ a h/o PAD (s/p aorta- femoral bypass 11/2016), pulmonary HTN, CHF (HFpEF), afib , CAD , COPD (last discharge from [facility] 01/05/2019; , HTN, DM, and HLD who presented to the [facility] ED with SOB. Per the patient, he has had SOB developing over the course of 3 days. Concurrently, he has developed diffuse abdominal pain. Per the patient, this "is the worst SOB I ever had". He states associative diaphoresis during this course of time. He has nausea without vomiting and constipation for the past 3 days and increased urinary frequency. Denies the following: fevers, visual changes, chest pain, back pain, dysuria, hematuria, diarrhea, hematochezia, and leg pain/swelling. Pain sharp and diffuse and w/o radiation; denies any other GI/ c/o;s; he came to the ED for evaluation. PMHx: as above PSHx: open aorto-bifen bypass 12/14 Home Medications Medication Instructions Recorded Acetaminophen [Tylenol] 650 mg PO PRN PRN 01/07/19 Albuterol Sulfate Inhaler - 1 - 2 inh PO QID PRN 01/07/19 [Ventolin Hfa Inhaler -] Budesonide/Formeterol Fumarate 2 inh PO BID 01/07/19 [SYMBICORT 160/4.5mcg -] Diltiazem Cd [Cardizem Cd -] 240 mg PO DAILY 01/07/19 Docusate Sodium [Colace -] 100 mg PO TID PRN 01/07/19 Furosemide [Lasix -] 40 mg PO DAILY 01/07/19 Pantoprazole Sodium [Protonix -] 40 mg PO DAILY 01/07/19 Rivaroxaban [Xarelto -] 20 mg PO DAILY 01/07/19 Sotalol HCl [Sotalol] 80 mg PO BID 01/07/19 Valsartan [Diovan] 80 mg PO DAILY 01/07/19 metFORMIN HCL [Metformin HCl] 500 mg PO BID 01/07/19 predniSONE [Deltasone -] 20 mg PO DAILY 01/07/19 Allergies Allergy/AdvReac Type Severity Reaction Status Date / Time Penicillins Allergy "rash" Verified 01/07/19 18:14 REVIEW OF SYSTEMS: CONSTITUTIONAL: Present: fever, chills, diaphoresis, generalized weakness, malaise CARDIOVASCULAR: Present: chest pain, syncope, palpitations, irregular heart rate, lightheadedness, peripheral edema RESPIRATORY: Present: cough, shortness of breath, dyspnea with exertion GASTROINTESTINAL: Present: abdominal pain, abdominal distension, nausea, vomiting, constipation GENITOURINARY: Absent: dysuria, frequency, urgency, hesitancy, hematuria, flank pain, genital pain MUSCULOSKELETAL: Absent: myalgia, arthralgia, joint swelling, back pain, neck pain SKIN: Absent: rash, itching, pallor HEMATOLOGIC/IMMUNOLOGIC: Absent: easy bleeding, easy bruising, lymphadenopathy NEUROLOGIC: Absent: headache, focal weakness, paresthesias, dizziness, unsteady gait, seizure, mental status changes, bladder or bowel incontinence PSYCHIATRIC: Absent: anxiety, depression, suicidal or homicidal ideation, hallucinations. PHYSICAL EXAM: GENERAL: Awake, alert, and fully oriented, in acute distress. HEAD: Normal with no signs of trauma. EYES: sclera anicteric, conjunctiva clear. NECK: Normal ROM, supple without lymphadenopathy, JVD, or masses. ABDOMEN: Soft, tender, distended, absent bowel sounds, guarding, and rebound are present no masses. No organomegaly. No hernias; healed scar in midline and both groins MUSCULOSKELETAL: Normal ROM at all joints. No bony deformities or tenderness. No CVA tenderness. UPPER EXTREMITIES: 1+ pulses, warm, well-perfused. No cyanosis. Cap refill <2 seconds. No peripheral edema. LOWER EXTREMITIES: 1+ pulses, warm, well-perfused. No calf tenderness. No peripheral edema. NEUROLOGICAL: Normal speech, gait not observed. PSYCH: Cooperative. Good eye contact. Appropriate mood and affect. SKIN: Warm, dry, normal turgor, no rashes or lesions noted. Vital Signs Temperature 98.4 F 01/08/19 08:12 Pulse Rate 120 H 01/08/19 08:10 Respiratory Rate 28 H 01/08/19 08:10 Blood Pressure 132/103 H 01/08/19 08:10 O2 Sat by Pulse Oximetry (%) 92 L 01/08/19 07:55 Lab Results WBC 23.7 K/mm3 (4.0-10.0) H 01/08/19 05:30 RBC 5.21 M/mm3 (4.00-5.60) 01/08/19 05:30 Hgb 15.6 GM/dL (11.7-16.9) 01/08/19 05:30 Hct 47.8 % (35.4-49) 01/08/19 05:30 MCV 91.8 fl (80-96) 01/08/19 05:30 MCHC 32.5 g/dl (32.0-35.9) 01/08/19 05:30 RDW 16.6 % (11.9-15.9) H 01/08/19 05:30 Plt Count 241 K/MM3 (134-434) 01/08/19 05:30 Sodium 134 mmol/L (136-145) L 01/08/19 05:30 Potassium 4.1 mmol/L (3.5-5.1) 01/08/19 05:30 Chloride 91 mmol/L (98-107) L 01/08/19 05:30 Carbon Dioxide 34 mmol/L (21-32) H 01/08/19 05:30 Anion Gap 9 MMOL/L (8-16) 01/08/19 05:30 BUN 45 mg/dL (7-18) H 01/08/19 05:30 Creatinine 1.4 mg/dL (0.55-1.3) H 01/08/19 05:30 Random Glucose 232 mg/dL (74-106) H 01/08/19 05:30 Calcium 9.1 mg/dL (8.5-10.1) 01/08/19 05:30 Blood Type O POSITIVE 01/08/19 01:42 Antibody Screen Negative 01/08/19 01:42 INR 1.49 (0.83-1.09) H 01/08/19 05:30 CT scan a/p reviewed and c/w pneumoperitoneum IMP: perforated viscus; most likely perforated sigmoid diverticulitis PLAN: Admit to ICU/NPO/NGT/IVF/IVABS?cardiology/Pulmonary evaluation/will need ex-lap and possible Hartmans procedure; r/b/t/a's d/w the patient who consents to the surgery; he understands the ostomy may be permanent and that he will remain extubated post op in the ICU and possibly for a prolonged course; we discussed other complications related to his comorbid medical conditions as well as possible . Ozzie Thapa MD FACS
[2019-01-08] MEDS ORDERED: morphine SULFATE 4 MG/ML VIAL IVPUSH STA (08:47)
[2019-01-08] MEDS ORDERED: morphine CARPU-JECT 4 MG/1 ML DISP.SYRIN IVPUSH STA (08:47)
[2019-01-08] MEDS ORDERED: LACTATED RINGERS SOLUTION 1000 ML INFUS.BAG IV ONE (08:53)
[2019-01-08] MEDS: MUPIROCIN 2% TOPICAL OINTMENT FOR DECOLONIZATION NS SCH ×2 (09:09→23:26)
[2019-01-08] MEDS: methylPREDNISolone NA SUCC 40 MG/1 ML VIAL IVPUSH SCH (09:09)
[2019-01-08] MEDS: BUDESONIDE/FORMETEROL FUMARATE 160/4.5 mcg INHALER IH SCH ×2 (09:09→23:26)
--- NOTE | 2019-01-08 09:24 | CON.CARD ---
Consult Consult Specialty:: cardiology Reason for Consultation:: SOB; pre-op - History of Present Illness Chief Complaint: Pt A&Ox3; strong abdominal pain; tender RUQ; no chest pain; mild dyspnea History of Present Illness: The patient is a 63 year old white male, well known to the ED, with a significant past medical history of COPD, diastolic CHF, s/p aorto bifemoral bypass, PVD, HTN, hyperlipidemia, hx substance abuse--now on methadone, and afib (on xarelto) who presents to the emergency department with shortness of breath for 3 days. He states that this is the worst he has ever felt. He reports some associated abdominal pain, diaphoretic cold sweats. It is noted that the patient was recently discharged on 01/05 for similar complaint and, has had 5 admissions for COPD exacerbation. He also reports experiencing some nausea and urinary frequency. The patient. The patient reports that he has been compliant with all of his medications. He denies any fever, nausea, vomiting, diarrhea, constipation, chest pain. The patient denies any other complaints. Cataloging Assistant: Dr. Lei Burns - History Source History Provided By: Patient, Medical Record Limitations to Obtaining History: No Limitations - Past Medical History Cardio/Vascular: Yes: AFIB, CHF, HTN, Hyperlipdemia, Pulmonary Hypertension Pulmonary: Yes: COPD, O2 Dependent. No: Asthma Renal/: Yes: Renal Inusuff Psych: Yes: Addictions (opiates now on methadone), Depression Endocrine: Yes: Diabetes Mellitus - Past Surgical History Past Surgical History: Yes: Bypass (abdominal aorta) - Alcohol/Substance Use Hx Alcohol Use: No History of Substance Use: reports: Heroin - Smoking History Smoking history: Former smoker Have you smoked in the past 12 months: No Aproximately how many cigarettes per day: 0 If you are a former smoker, when did you quit?: 2016 - Social History Usual Living Arrangement: Alone ADL: Independent History of Recent Travel: No Home Medications - Allergies Allergies/Adverse Reactions: Allergies Allergy/AdvReac Type Severity Reaction Status Date / Time Penicillins Allergy "rash" Verified 01/07/19 18:14 - Home Medications Home Medications: Ambulatory Orders Acetaminophen [Tylenol] 650 mg PO PRN PRN 01/07/19 Albuterol Sulfate Inhaler - [Ventolin Hfa Inhaler -] 1 - 2 inh PO QID PRN Budesonide/Formeterol Fumarate [SYMBICORT 160/4.5mcg -] 2 inh PO BID 01/07/19 Diltiazem Cd [Cardizem Cd -] 240 mg PO DAILY 01/07/19 Docusate Sodium [Colace -] 100 mg PO TID PRN 01/07/19 Furosemide [Lasix -] 40 mg PO DAILY 01/07/19 Pantoprazole Sodium [Protonix -] 40 mg PO DAILY 01/07/19 Rivaroxaban [Xarelto -] 20 mg PO DAILY 01/07/19 Sotalol HCl [Sotalol] 80 mg PO BID 01/07/19 Valsartan [Diovan] 80 mg PO DAILY 01/07/19 metFORMIN HCL [Metformin HCl] 500 mg PO BID 01/07/19 predniSONE [Deltasone -] 20 mg PO DAILY 01/07/19 Family Disease History - Family Disease History Family Disease History: Heart Disease: Father ([place]), CA: Sister (Cervical CA) Review of Systems - Review of Systems Constitutional: reports: Loss of Appetite. denies: Fever Eyes: reports: No Symptoms HENT: reports: No Symptoms Neck: reports: No Symptoms Cardiovascular: reports: Shortness of Breath Respiratory: reports: Snoring, SOB Gastrointestinal: reports: Abdominal Pain Genitourinary: reports: No Symptoms Breasts: reports: No Symptoms Reported Musculoskeletal: reports: No Symptoms Integumentary: reports: No Symptoms Endocrine: reports: No Symptoms Hematology/Lymphatic: reports: No Symptoms Psychiatric: reports: Anxiety - Risk Factors Known Risk Factors: Yes: Age, Diabetes Mellitus, Family History Vital Signs: Vital Signs Temperature 98.4 F 01/08/19 08:12 Pulse Rate 115 H 01/08/19 09:19 Respiratory Rate 18 01/08/19 09:19 Blood Pressure 139/99 01/08/19 09:19 O2 Sat by Pulse Oximetry (%) 90 L 01/08/19 08:56 Constitutional: Yes: Anxious Eyes: Yes: WNL HENT: Yes: WNL Neck: Yes: WNL Respiratory: Yes: SOB, Tachypnea Gastrointestinal: Yes: Distention, Tenderness Renal/: No: Anuria Cardiovascular: Yes: Tachycardia, Pulse Irregular JVD: No Carotid Bruit: No PMI: Non-Displaced Heart Sounds: Yes: S1 (varies in intensity), S2 Murmur: Yes: Systolic Murmur, Grade 1 Musculoskeletal: Yes: Muscle Weakness Extremities: Yes: Cool Edema: No Peripheral Pulses WNL: Yes Integumentary: Yes: WNL Neurological: Yes: Alert, Oriented, Weakness Psychiatric: Yes: WNL - Other Data Labs, Other Data: CBC, BMP 01/08/19 05:30 01/08/19 05:30 INR, PTT INR 1.49 (0.83-1.09) H 01/08/19 05:30 Troponin, BNP 01/07/19 18:55 Troponin I < 0.02 B-Natriuretic Peptide 1995.0 H Troponin, BNP 01/07/19 18:55 Troponin I < 0.02 B-Natriuretic Peptide 1995.0 H Abnormal Lab Results 01/07/19 01/07/19 01/07/19 18:55 18:55 21:30 WBC 29.3 H MCHC 31.3 L RDW 16.2 H Absolute Neuts (auto) 27.6 H Neutrophils % 94.0 H Neutrophils % (Manual) 86.0 H Lymphocytes % 1.6 L D Lymphocytes % (Manual) 2.0 L Monocytes % (Manual) 3 L PT with INR INR ABG pH ABG pO2 at Pt Temp ABG HCO3 ABG O2 Sat (Measured) ABG Base Excess Sodium 133 L Chloride 89 L Carbon Dioxide 34 H BUN 45 H Creatinine 1.5 H Random Glucose 287 H Lactic Acid 2.6 H* Magnesium Total Bilirubin 1.1 H Creatine Kinase B-Natriuretic Peptide 1995.0 H Total Protein 5.8 L Albumin 2.7 L Urine Glucose (UA) 01/07/19 01/08/19 01/08/19 21:48 05:30 05:30 WBC 23.7 H MCHC RDW 16.6 H Absolute Neuts (auto) 22.4 H Neutrophils % 94.4 H Neutrophils % (Manual) Lymphocytes % 1.3 L Lymphocytes % (Manual) Monocytes % (Manual) PT with INR 17.70 H INR 1.49 H ABG pH ABG pO2 at Pt Temp ABG HCO3 ABG O2 Sat (Measured) ABG Base Excess Sodium Chloride Carbon Dioxide BUN Creatinine Random Glucose Lactic Acid Magnesium Total Bilirubin Creatine Kinase B-Natriuretic Peptide Total Protein Albumin Urine Glucose (UA) 1+ H 01/08/19 01/08/19 01/08/19 05:30 05:30 06:38 WBC MCHC RDW Absolute Neuts (auto) Neutrophils % Neutrophils % (Manual) Lymphocytes % Lymphocytes % (Manual) Monocytes % (Manual) PT with INR INR ABG pH 7.49 H ABG pO2 at Pt Temp 56.7 L ABG HCO3 33.0 H ABG O2 Sat (Measured) 86.7 L ABG Base Excess 8.8 H Sodium 134 L Chloride 91 L Carbon Dioxide 34 H BUN 45 H Creatinine 1.4 H Random Glucose 232 H Lactic Acid 3.3 H* Magnesium 2.5 H Total Bilirubin Creatine Kinase 20 L B-Natriuretic Peptide Total Protein 5.6 L Albumin 2.5 L Urine Glucose (UA) Echo: Image Reviewed (AF with RVR) Ejection Fraction %: LVEF > or = 40 % Imaging - Results Chest X-ray: Image Reviewed Cat Scan: Image Reviewed EKG: Image Reviewed Problem List - Problems (1) Acute on chronic diastolic CHF (congestive heart failure) Code(s): I50.33 - ACUTE ON CHRONIC DIASTOLIC (CONGESTIVE) HEART FAILURE (2) Atrial fibrillation with rapid ventricular response Assessment/Plan: On Sotalol and diltiazem at home. He has received metoprolol and diltiazem IVP now for AF with RVR and HTN. Will start diltiazem IV drip for both HR and BP control. F/u EKG and TNI serially. Pt says he last took rivaroxaban (anticoagulant) late yesterday afternoon. Code(s): I48.91 - UNSPECIFIED ATRIAL FIBRILLATION (3) COPD exacerbation Code(s): J44.1 - CHRONIC OBSTRUCTIVE PULMONARY DISEASE W (ACUTE) EXACERBATION (4) DVT prophylaxis Code(s): NBY5629 - (5) Shortness of breath Code(s): R06.02 - SHORTNESS OF BREATH (6) Leukocytosis Code(s): D72.829 - ELEVATED WHITE BLOOD CELL COUNT, UNSPECIFIED Qualifiers: Leukocytosis type: unspecified Qualified Code(s): D72.829 - Elevated white blood cell count, unspecified (7) Methadone dependence Code(s): F11.20 - OPIOID DEPENDENCE, UNCOMPLICATED (8) PAD (peripheral artery disease) Code(s): I73.9 - PERIPHERAL VASCULAR DISEASE, UNSPECIFIED (9) Substance abuse Assessment/Plan: on methadone; last dose yesterday. Code(s): F19.10 - OTHER PSYCHOACTIVE SUBSTANCE ABUSE, UNCOMPLICATED (10) Pre-operative cardiovascular examination, high risk surgery Assessment/Plan: GI perforation; large pneumoperitoneum, with abnormal distal small bowel loop. Pt is on sotalol and dilitaizem at home; NPO presently, and has received metoprolol and diltiazem IVP now for HR and BP control. Start IV diltiazem; F/u HR and BP; IV diltiazem boluses prn. Pt last took DOAC later yesterday afternoon. Ideally, wait period before this surgery would be 48-72 hours to minimize risk of perioperative bleed. Multiple comorbidities, including CAD/PAD, COPD, DM,HTN, CHF, hx substance abuse , and AF, put pt at high risk for a perioperative cardiac event. Avoid dehydration (presently with mild acute renal dysfunction). Maintain electrolytes WNL. Code(s): Z01.810 - ENCOUNTER FOR PREPROCEDURAL CARDIOVASCULAR EXAMINATION (11) S/P aorto-bifemoral bypass surgery Code(s): Z95.828 - PRESENCE OF OTHER VASCULAR IMPLANTS AND GRAFTS Assessment/Plan CCU time spent: 75 minutes
--- NOTE | 2019-01-08 09:32 | CON.GI ---
Consult Consult Specialty:: GI Reason for Consultation:: Pneumoperitoneum - History of Present Illness Chief Complaint: Abd pain and SOB History of Present Illness: 63 y.o. M with COPD, on prednisone, presents with worsening SOB and abd pain. Found on CT scan to have free air under diaphragm. CBC WBC 23.7 K/mm3 (4.0-10.0) H 01/08/19 05:30 RBC 5.21 M/mm3 (4.00-5.60) 01/08/19 05:30 Hgb 15.6 GM/dL (11.7-16.9) 01/08/19 05:30 Hct 47.8 % (35.4-49) 01/08/19 05:30 MCV 91.8 fl (80-96) 01/08/19 05:30 MCH 29.9 pg (25.7-33.7) 01/08/19 05:30 MCHC 32.5 g/dl (32.0-35.9) 01/08/19 05:30 RDW 16.6 % (11.9-15.9) H 01/08/19 05:30 Plt Count 241 K/MM3 (134-434) 01/08/19 05:30 MPV 10.3 fl (7.5-11.1) 01/08/19 05:30 Absolute Neuts (auto) 22.4 K/mm3 (1.5-8.0) H 01/08/19 05:30 Total Counted 100 01/07/19 18:55 Neutrophils % 94.4 % (42.8-82.8) H 01/08/19 05:30 Neutrophils % (Manual) 86.0 % (42.8-82.8) H 01/07/19 18:55 Band Neutrophils % 9.0 % 01/07/19 18:55 Lymphocytes % 1.3 % (8-40) L 01/08/19 05:30 Lymphocytes % (Manual) 2.0 % (8-40) L 01/07/19 18:55 Monocytes % 3.8 % (3.8-10.2) 01/08/19 05:30 Monocytes % (Manual) 3 % (3.8-10.2) L 01/07/19 18:55 Eosinophils % 0.1 % (0-4.5) 01/08/19 05:30 Basophils % 0.4 % (0-2.0) 01/08/19 05:30 Nucleated RBC % 0 % (0-0) 01/08/19 05:30 Differential Comment Man diff performed 01/07/19 18:55 Hypochromia 1+ 01/07/19 18:55 Platelet Estimate Adequate 01/07/19 18:55 Platelet Comment 01/07/19 18:55 Anisocytosis 1+ 01/07/19 18:55 - History Source History Provided By: Patient, Medical Record Limitations to Obtaining History: No Limitations - Past Medical History Cardio/Vascular: Yes: AFIB, CHF, HTN, Hyperlipdemia Pulmonary: Yes: COPD, O2 Dependent Psych: Yes: Addictions (opiates now on methadone), Depression Endocrine: Yes: Diabetes Mellitus - Past Surgical History Past Surgical History: Yes: Bypass (Abdominal aorta) - Alcohol/Substance Use Hx Alcohol Use: No History of Substance Use: reports: Heroin - Smoking History Smoking history: Former smoker Have you smoked in the past 12 months: No Aproximately how many cigarettes per day: 0 If you are a former smoker, when did you quit?: 2016 - Social History Usual Living Arrangement: Alone ADL: Independent History of Recent Travel: No Home Medications - Allergies Allergies/Adverse Reactions: Allergies Allergy/AdvReac Type Severity Reaction Status Date / Time Penicillins Allergy "rash" Verified 01/07/19 18:14 - Home Medications Home Medications: Ambulatory Orders Acetaminophen [Tylenol] 650 mg PO PRN PRN 01/07/19 Albuterol Sulfate Inhaler - [Ventolin Hfa Inhaler -] 1 - 2 inh PO QID PRN Budesonide/Formeterol Fumarate [SYMBICORT 160/4.5mcg -] 2 inh PO BID 01/07/19 Diltiazem Cd [Cardizem Cd -] 240 mg PO DAILY 01/07/19 Docusate Sodium [Colace -] 100 mg PO TID PRN 01/07/19 Furosemide [Lasix -] 40 mg PO DAILY 01/07/19 Pantoprazole Sodium [Protonix -] 40 mg PO DAILY 01/07/19 Rivaroxaban [Xarelto -] 20 mg PO DAILY 01/07/19 Sotalol HCl [Sotalol] 80 mg PO BID 01/07/19 Valsartan [Diovan] 80 mg PO DAILY 01/07/19 metFORMIN HCL [Metformin HCl] 500 mg PO BID 01/07/19 predniSONE [Deltasone -] 20 mg PO DAILY 01/07/19 Family Disease History - Family Disease History Family Disease History: Heart Disease: Father ([place]), CA: Sister (Cervical CA) Review of Systems - Review of Systems Respiratory: reports: SOB Gastrointestinal: reports: Abdominal Pain Physical Exam-GI Vital Signs: Vital Signs Temperature 98.4 F 01/08/19 08:12 Pulse Rate 115 H 01/08/19 09:19 Respiratory Rate 18 01/08/19 09:19 Blood Pressure 139/99 01/08/19 09:19 O2 Sat by Pulse Oximetry (%) 90 L 01/08/19 08:56 Gastrointestinal Inspection: Yes: Distention ...Auscultate: Yes: No Bowel Sounds ...Percussion: Yes: Tympanitic (Loss of dullness to percussion over liver and spleen.) Labs: CBC, BMP 01/08/19 05:30 01/08/19 05:30 INR, PTT INR 1.49 (0.83-1.09) H 01/08/19 05:30 Imaging - Results Cat Scan: Image Reviewed (Obvious pneumoperitoneum.) Assessment/Plan Pneumoperitoneum. Case discussed with Dr Thapa, he is aware patient has been on NOAC through yesterday. Will defer to Dr Thapa on timing of surgery.
--- NOTE | 2019-01-08 09:35 | EKG ---
Test Reason : Blood Pressure : / mmHG Vent. Rate : 128 BPM Atrial Rate : 101 BPM P-R Int : 000 ms QRS Dur : 072 ms QT Int : 330 ms P-R-T Axes : 000 077 230 degrees QTc Int : 481 ms ATRIAL FIBRILLATION WITH RAPID VENTRICULAR RESPONSE ABNORMAL ECG WHEN COMPARED WITH ECG OF 31-DEC-2018 10:14, ST NOW DEPRESSED IN LATERAL LEADS INVERTED T WAVES HAVE REPLACED NONSPECIFIC T WAVE ABNORMALITY IN INFERIOR LEADS T WAVE INVERSION MORE EVIDENT IN LATERAL LEADS Confirmed by MIGUE DALE MD ([id number]) on 01/08/2019 9:35:22 AM Referred By: Confirmed By:MIGUE DALE MD
[2019-01-08] MEDS ORDERED: DILTIAZEM INJECTION 125 MG in DEXTROSE 5%-WATER - 100 ML IVPB SCH (09:45)
[2019-01-08] MEDS ORDERED: dilTIAZem HCL 50 MG/10 ML - 10 ML VIAL ONE (09:49)
[2019-01-08] MEDS ORDERED: ROCURONIUM BROMIDE 50 MG/5 ML VIAL ONE (10:13)
[2019-01-08] MEDS ORDERED: ETOMIDATE 20 MG/10 ML AMPUL IVPUSH ONE (10:14)
[2019-01-08] MEDS ORDERED: LIDOCAINE HCL/PF 2% SDV 5ML VIAL ONE (10:14)
[2019-01-08] MEDS ORDERED: MIDAZOLAM HCL 2 MG/2 ML SINGLE DOSE VIAL ONE ×2 (10:38→13:57)
--- NOTE | 2019-01-08 10:46 | PN ---
Teaching Attending Note Name of Resident: Comfort Novak ATTENDING PHYSICIAN STATEMENT I saw and evaluated the patient. I reviewed the resident's note and discussed the case with the resident. I agree with the resident's findings and plan as documented. SUBJECTIVE: Pt seen and examined in the ICU. Significant abdominal pain and distention. Heart rates rapid. Going to OR. OBJECTIVE: Vital Signs Period Temp Pulse Resp BP Sys/Chatterjee Pulse Ox Last 24 Hr 97.6 F-99.5 F 109-168 18-28 127-157/95-120 90-95 Intake & Output 01/05/19 01/06/19 01/07/19 01/08/19 23:59 23:59 23:59 23:59 Intake Total 345 Output Total 350 Balance -5 Weight 83.234 kg 84.005 kg Gen: tachypneic at rest Heart: tachycardic, irregular Lung: distant breath sounds Abd: distended, tympanic, diffuse TTP Ext: no edema CBC, BMP 01/08/19 05:30 01/08/19 05:30 Active Medications Albuterol Sulfate (Ventolin Hfa Inhaler -) 1 puff IH Q6H PRN PRN Reason: SHORT OF BREATH/WHEEZING Last Admin: 01/08/19 03:57 Dose: 1 puff Budesonide/Formoterol Fumarate (Symbicort 160/4.5mcg -) 2 puff IH BID DOMINIC Last Admin: 01/08/19 09:09 Dose: 2 puff Chlorhexidine Gluconate (Hibiclens For Decolonization -) 1 applic TP HS DOMINIC Sodium Chloride (Normal Saline -) 1,000 mls @ 75 mls/hr IV ASDIR DOMINIC Last Admin: 01/08/19 01:46 Dose: 75 mls/hr Metronidazole (Flagyl 500mg Premixed Ivpb -) 500 mg in 100 mls @ 100 mls/hr IVPB Q8H-IV DOMINIC Last Admin: 01/08/19 09:09 Dose: Not Given Diltiazem HCl 125 mg/ Dextrose 125 mls @ 5 mls/hr IVPB TITR DOMINIC; Protocol Last Admin: 01/08/19 09:56 Dose: 5 mg/hr, 5 mls/hr Insulin Aspart (Novolog Vial Sliding Scale -) 0 vial SQ Q6H DOMINIC; Protocol Last Admin: 01/08/19 05:47 Dose: 4 units Ipratropium Fedora (Atrovent 0.02% Nebulizer -) 1 amp NEB RQID [facility] Methylprednisolone Sodium Succinate (Solu-Medrol -) 30 mg IVPUSH DAILY [facility] Last Admin: 01/08/19 09:09 Dose: 30 mg Morphine Sulfate (Morphine Injection -) 4 mg IVPUSH Q4H PRN PRN Reason: PAIN LEVEL 6-10 Last Admin: 01/08/19 05:14 Dose: 4 mg Mupirocin (Bactroban Ointment (For Decolonization) -) 1 applic NS BID [facility] Stop: 01/13/19 09:59 Last Admin: 01/08/19 09:09 Dose: Not Given ASSESSMENT AND PLAN: Pneumoperitoneum Severe Sepsis Acute Kidney Injury Lactic Acidosis Atrial Fibrillation with RVR LV Diastolic Dysfunction Pulmonary HTN COPD HTN DM Hyperlipidemia PAD - to OR for exploration - IV antibiotics - IVF - monitor urine output, creatinine - trend lactate - pain control - rate control with cardizem gtt - holding anticoagulation - post op ICU monitoring critical care time spent in reviewing chart, evaluating patient and formulating plan 35 min
--- NOTE | 2019-01-08 10:52 | HOSP ---
Subjective - Review of Symptoms Subjective: patient is lying in be comfortably he has some pain in his stomach, besides that he feels well, he is noted in atrial fibrillation with RVR, patient was aware of his condition and that he will require to undergo surgical intervention for the penumoperitonium that the patient has, he has to have ex- lap with possible hartmen's procedure will follow up with cardiology will follow up with pulmonary General: No: Chills, Night Sweats, Fatigue, Malaise, Appetite, Other HEENT: No: Head Aches, Visual Changes, Eye Pain, Ear Pain, Dysphasia, Sinus Congestion, Post Nasal Drip, Sore Throat, Other Pulmonary: Yes: Dyspnea, Cough Cardiovascular: Yes: Palpitations. No: Chest Pain, Orthopnea, Paroxysmal Noc. Dyspnea, Edema, Light Headedness, Other Gastrointestinal: Yes: Nausea, Abdominal Pain. No: NOSYM, Vomiting, Diarrhea, Constipation, Melena, Hematochezia, Other Genitourinary: No: Dysuria, NOSYM, Frequency, Incontinence, Hematuria, Retention , Other Musculoskeletal: No: No Symptoms, Back Pain, Crepitus, Decreased ROM, Extremity Pain, Joint Pain, Joint Swelling, Muscle Pain, Muscle Cramps, Muscle Weakness, Other Neurological: No: Weakness, Numbness, Incoordination, Change in speech, Confusion, Seizures, Other Physical Examination Vital Signs: Vital Signs Temperature 98.4 F 01/08/19 08:12 Pulse Rate 118 H 01/08/19 09:56 Respiratory Rate 18 01/08/19 09:19 Blood Pressure 139/99 01/08/19 09:56 O2 Sat by Pulse Oximetry (%) 90 L 01/08/19 08:56 Constitutional: Yes: Well Nourished, No Distress, Calm Eyes: Yes: WNL, Conjunctiva Clear, EOM Intact HENT: Yes: WNL, Atraumatic, Normocephalic Neck: Yes: WNL, Supple, Trachea Midline Cardiovascular: Yes: Pulse Irregular, S1, S2 Respiratory: Yes: WNL, Regular, CTA Bilaterally Gastrointestinal: Yes: Normal Bowel Sounds, Distention, Hyperactive Bowel Sounds , Tenderness, Tenderness, Rebound Musculoskeletal: Yes: WNL Extremities: Yes: WNL Edema: No Peripheral Pulses WNL: Yes Integumentary: Yes: WNL Neurological: Yes: WNL, Alert, Oriented ...Motor Strength: WNL Psychiatric: Yes: WNL Labs: CBC, BMP 01/08/19 05:30 01/08/19 05:30 Hospitalist Encounter Assessment: 63 y/o M with PMH COPD (on 2L 02), HFpEF (last EF 10/2018: 60-65%), paraoxysmal afib (on rivaroxiban), PAD (s/p aorta- fem bypass), pulm HTN, CAD, NIDDM, opiod dependence (on methadone)admitted for SIRS with sepsis 2/2 to pneumoperitoneum associated with metabolic acidosis 2/2 to lactic acid #Possible perforated viscus 2/2 perf sigmoid diverticulum. - patient is NPO for surgery today -gi broad spectrum coverage gram (-) and anaerobes. c/w azactam + flagyl. pen allergic -lactic repeat level #possible SBO: distended fluid and air bowel loops -c/w IVF, lactic has normalized -NGT placement for decompression #leukocytosis 2/2 to perforation vs chronic steroid -may be 2/2 chronic steroids or could be 2/2 sepsis -cont to monitor #COPD -on 2L home 02; continue -does not appear to be in exac now -c/w symbicort, duonebs, nebs PRN -c/w medrol 30 qd #afib w/RVR - on rate control - will hold the patient medication for the surgery will give IVP prn diltiazem IVP for rate control -hold sotalol rhythm due to sepsis -K>4, Mg>2 -hold rivaroxiban due to urgent OR #HFpEF -appears euvolemic -hold furosemide as MADELAINE #MADELAINE likely 2/2 sepsis -hold valsartan and furosemide -IVF hydration @ 150cc/hr #NIDDM -ISS, BGM q6h #opiod dependence -on methadone high dose. will need to d/w Dr. Robertson - detox #F/E/N IV NS 75 cc/hr cont to follow lytes NPO #PPX DVT: SCD's GI: protonix #Dispo admitted to icu Critical Care Total Critical Care Time (in minutes): 35 Critical Care Statement: The care of this patient involved high complexity decision making to prevent further life threatening deterioration of the patient 's condition and/or to evaluate & treat vital organ system(s) failure or risk of failure.
[2019-01-08] MEDS ORDERED: PHENYLEPHRINE HCL 10 MG/1 ML SINGLE DOSE VIAL ONE (11:15)
[2019-01-08] MEDS ORDERED: VECURONIUM BROMIDE 10 MG VIAL ONE ×2 (11:48→13:18)
[2019-01-08] MEDS ORDERED: SODIUM CHLORIDE 0.9% P/F 10 ML VIAL IJ ONE (11:48)
--- NOTE | 2019-01-08 12:25 | EKG ---
Test Reason : Blood Pressure : / mmHG Vent. Rate : 112 BPM Atrial Rate : 288 BPM P-R Int : 000 ms QRS Dur : 074 ms QT Int : 366 ms P-R-T Axes : 000 069 214 degrees QTc Int : 499 ms ATRIAL FIBRILLATION WITH RAPID VENTRICULAR RESPONSE ABNORMAL ECG WHEN COMPARED WITH ECG OF 08-JAN-2019 01:12, ATRIAL FIBRILLATION HAS REPLACED ATRIAL FLUTTER ST LESS DEPRESSED IN ANTERIOR LEADS Confirmed by SUYAPA RAIN, MIGUE ([id number]) on 01/08/2019 12:24:43 PM Referred By: Isha VILLANUEVA Confirmed By:MIGUE DALE MD
[2019-01-08] MEDS: IPRATROPIUM BR 0.02% 0.5 MG/2.5 ML VIAL.NEB. NEB SCH ×3 (12:52→21:30)
[2019-01-08] MEDS ORDERED: BENZOIN TINCTURE SWABSTICK TP ONE (13:58)
[2019-01-08 14:14] LABS: MACROCYTOSIS 0; PLATELET ESTIMATE NORMAL; TEAR DROP CELLS 1+
--- NOTE | 2019-01-08 14:37 | OP ---
Operative Note - Note: Operative Date: 01/08/19 Pre-Operative Diagnosis: Perforated sigmoid Operation: hartmans procedure Post-Operative Diagnosis: Same as Pre-op Surgeon: Ozzie Thapa Farmer Cash Grain: Renetta Parker Anesthesiologist/FEATHER SEPARATOR: Oliverio Castillo Anesthesia: General Specimens Removed: sigmoid colon Estimated Blood Loss (mls): 250 Drains & Tubes with Location: JUAN x2 at RLQ and LLQ Drains, Volume Out (mls): 60 (alberto) Fluid Volume Replaced (mls): 5,700 Operative Report Dictated: Yes
--- NOTE | 2019-01-08 14:38 | SURG ---
Surgery Cableman Note Cableman: Renetta Parker PA-C Date of Service: 01/08/19 Diagnosis: perforated sigmoid Procedure: hartmans procedure I was present for the entirety of the operative procedure. For further detail, please refer to operative report. Visit type - Case Type Case Type: ED Admission - Emergency Emergency Visit: Yes ED Registration Date: 01/08/19 Care time: The patient presented to the Emergency Department on the above date and was hospitalized for further evaluation of their emergent condition. - New patient This patient is new to me today: Yes Date on this admission: 01/08/19
--- NOTE | 2019-01-08 14:42 | PN ---
Progress Note (short form) - Note Progress Note: ID CONSULT DICTATED S/P JAMISON'S PROCEDURE HYPOTENSION R/O SEPSIS SECONDARY TO GI SOURCE MARKED LEUKOCYTOSIS LACTIC ACIDOSIS PCN ALLERGY PENDING C/S EMPIRIC VANCO/ AZTREONAM/ FLAGYL
[2019-01-08] MEDS ORDERED: PROPOFOL 1,000,000 MCG/100 ML VIAL IVPB SCH (14:45)
[2019-01-08] MEDS ORDERED: BENZOIN/ALOE VERA/STORAX/TOLU 58 ML BOTTLE ONE (14:46)
[2019-01-08] MEDS ORDERED: PROPOFOL 1,000,000 MCG/100 ML VIAL ONE (15:13)
[2019-01-08] MEDS: VANCOMYCIN 1 GRAM (PRE-DOCKED) 1,000 MG/250 ML BAG IVPB SCH (15:17)
--- NOTE | 2019-01-08 16:09 | CONS ---
DATE OF CONSULTATION: 01/08/2019 The patient is a 63-year-old male evaluated for sepsis. History is obtained from the chart as he cannot give a history at the present time. He presented to the emergency room on January 08, 2019. He has a 2-day history of worsening shortness of breath and abdominal pain. He was evaluated in the emergency room, where a CAT scan was performed. It showed pneumoperitoneum consistent with a perforated viscus. The patient was taken to the operating room, where exploratory laparotomy was performed. He was found to have a perforated sigmoid colon. A Spenser's procedure was performed. His course has been complicated by marked leukocytosis and lactic acidosis. He is presently intubated in the ICU. The patient has an allergy to PENICILLIN, the nature of which is not known. LABORATORY DATA: White count 29.3, with left shift, hematocrit 47.8, platelet count 241. Creatinine 1.4, lactic acid 3.3. Urinalysis: Negative leukocyte esterase. Past medical history positive for COPD, hypertension, diabetes mellitus, hyperlipidemia, peripheral arterial disease, pulmonary hypertension, congestive heart failure, atrial fibrillation. PAST SURGICAL HISTORY: Status post aortofemoral bypass, abdominal aortic aneurysm repair. SOCIAL HISTORY: Former smoker. History of opiate use, on methadone. PHYSICAL EXAMINATION: General: He is intubated. Vital Signs: Temperature 98. Blood pressure 107/92. Pulse 122, regular. Respirations 22 per minute. ENT: Sclerae anicteric. The patient is orally intubated. Heart Sounds: S1, S2. Lungs: Air entry bilaterally. Abdomen: Distended. Surgical dressing in place. Fernando-Cox drain in place with serosanguineous fluid. Colostomy present. Extremities: Positive for edema. IMPRESSION: 1. Status post Spenser's procedure for perforated sigmoid colon. 2. Hypotension. Rule out sepsis secondary to gastrointestinal source. 3. Marked leukocytosis. 4. Lactic acidosis. 5. PENICILLIN allergy. Await cultures. Empiric antibiotic coverage, in this PENICILLIN allergic patient, with vancomycin, Azactam, Flagyl. Continue ventilatory and hemodynamic support. Will follow. Thank you for the kind referral. DAYANARA JERONIMO M.D. FREDDIE/[id number]
[2019-01-08 16:25] LABS: BASO % 0.1 % (0-2.0); HEMATOCRIT 42.8 % (35.4-49); HEMOGLOBIN 13.3 GM/dL (11.7-16.9); MCH 29.2 pg (25.7-33.7); MCHC 31.1 g/dl (32.0-35.9); MEAN PLT VOLUME 10.2 fl (7.5-11.1); MONO % 5.7 % (3.8-10.2); NEUT % 92.2 % (42.8-82.8); PLATELET COUNT 213 K/MM3 (134-434); RBC 4.55 M/mm3 (4.00-5.60); RDW 16.6 % (11.9-15.9); WHITE BLOOD COUNT 20.8 K/mm3 (4.0-10.0)
[2019-01-08 16:30] LABS: ALBUMIN 1.4 g/dl (3.4-5.0); BILIRUBIN,TOTAL 0.4 mg/dL (0.2-1); CALCIUM 7.7 mg/dL (8.5-10.1); CREATININE 1.3 mg/dL (0.55-1.3); POTASSIUM 4.6 mmol/L (3.5-5.1); TOT PROT 3.3 g/dl (6.4-8.2)
[2019-01-08] MEDS ORDERED: AZTREONAM 2 GM in DEXTROSE 5%-WATER 100 ML IVPB SCH (17:00)
[2019-01-08 17:04] LABS: ANISOCYTOSIS 1+; PLATELET ESTIMATE ADEQUATE
[2019-01-08] MEDS ORDERED: DEXTROSE 5%-WATER - 50 ML IVPB ONE ×2 (17:56→23:31)
[2019-01-08] MEDS ORDERED: AZTREONAM 1 GM VIAL (RESTRICTED TO ID) ONE ×2 (17:56→23:31)
[2019-01-08] MEDS: AZTREONAM 1 GM in DEXTROSE 5%-WATER - 50 ML IVPB SCH (18:00)
[2019-01-08] MEDS ORDERED: SODIUM CHLORIDE 1,000 ML IV STA ×3 (18:08→23:02)
[2019-01-08] MEDS ORDERED: VASOPRESSIN 20 UNITS/ML VIAL IV ONE (20:11)
[2019-01-08] MEDS ORDERED: VASOPRESSIN 50 UNITS in SODIUM CHLORIDE 97.5 ML IVPB SCH (20:15)
--- NOTE | 2019-01-08 21:19 | PN ---
Progress Note, Physician - Current Medication List Current Medications: Active Medications Albuterol Sulfate (Ventolin Hfa Inhaler -) 1 puff IH Q6H PRN PRN Reason: SHORT OF BREATH/WHEEZING Last Admin: 01/08/19 03:57 Dose: 1 puff Budesonide/Formoterol Fumarate (Symbicort 160/4.5mcg -) 2 puff IH BID DOMINIC Last Admin: 01/08/19 09:09 Dose: 2 puff Chlorhexidine Gluconate (Hibiclens For Decolonization -) 1 applic TP HS DOMINIC Diltiazem HCl (Cardizem Injection -) 20 mg IVPUSH ONCE PRN PRN Reason: for RVR Metronidazole (Flagyl 500mg Premixed Ivpb -) 500 mg in 100 mls @ 100 mls/hr IVPB Q8H-IV DOMINIC Last Admin: 01/08/19 17:54 Dose: 100 mls/hr Diltiazem HCl 125 mg/ Dextrose 125 mls @ 5 mls/hr IVPB TITR DOMINIC; Protocol Last Admin: 01/08/19 09:56 Dose: 5 mg/hr, 5 mls/hr Sodium Chloride (Normal Saline -) 1,000 mls @ 200 mls/hr IV ASDIR DOMINIC Last Admin: 01/08/19 15:21 Dose: 200 mls/hr Propofol (Diprivan -) 1,000,000 mcg in 100 mls @ 2.52 mls/hr IVPB TITR DOMINIC; Protocol Last Admin: 01/08/19 16:27 Dose: 5 mcg/kg/min, 2.52 mls/hr Aztreonam 1 gm/ Dextrose 50 mls @ 100 mls/hr IVPB Q8H-IV DOMINIC; Protocol Last Admin: 01/08/19 18:00 Dose: 100 mls/hr Vancomycin HCl (Vancomycin (Pre-Docked)) 1,000 mg in 250 mls @ 166.667 mls/hr IVPB Q12H DOMINIC; Protocol Last Admin: 01/08/19 15:17 Dose: 166.667 mls/hr Vasopressin 50 units/ Sodium (Chloride) 100 mls @ 4 mls/hr IVPB ASDIR DOMINIC; Protocol Last Titration: 01/08/19 20:30 Dose: 6 units/hr, 12 mls/hr Insulin Aspart (Novolog Vial Sliding Scale -) 0 vial SQ Q6H DOMINIC; Protocol Last Admin: 01/08/19 18:10 Dose: Not Given Ipratropium [place] (Atrovent 0.02% Nebulizer -) 1 amp NEB RQID [facility] Last Admin: 01/08/19 15:35 Dose: 1 amp Methylprednisolone Sodium Succinate (Solu-Medrol -) 30 mg IVPUSH DAILY [facility] Last Admin: 01/08/19 09:09 Dose: 30 mg Morphine Sulfate (Morphine Injection -) 4 mg IVPUSH Q4H PRN PRN Reason: PAIN LEVEL 6-10 Last Admin: 01/08/19 05:14 Dose: 4 mg Mupirocin (Bactroban Ointment (For Decolonization) -) 1 applic NS BID [facility] Stop: 01/13/19 09:59 Last Admin: 01/08/19 09:09 Dose: Not Given - Objective Vital Signs: Vital Signs Temperature 97.6 F 01/08/19 16:36 Pulse Rate 104 H 01/08/19 20:40 Respiratory Rate 13 01/08/19 20:40 Blood Pressure 94/78 01/08/19 20:40 O2 Sat by Pulse Oximetry (%) 99 01/08/19 16:37 Labs: CBC, BMP 01/08/19 14:45 01/08/19 14:45 INR, PTT INR 1.49 (0.83-1.09) H 01/08/19 05:30 <Luis Benitez - Last Filed: 01/09/19 00:14> Chief Complaint: Pt alert; c/o strong abdoinal pain. - Current Medication List Current Medications: Active Medications Albuterol Sulfate (Ventolin Hfa Inhaler -) 1 puff IH Q6H PRN PRN Reason: SHORT OF BREATH/WHEEZING Last Admin: 01/08/19 03:57 Dose: 1 puff Budesonide/Formoterol Fumarate (Symbicort 160/4.5mcg -) 2 puff IH BID [facility] Last Admin: 01/08/19 23:26 Dose: Not Given Chlorhexidine Gluconate (Hibiclens For Decolonization -) 1 applic TP HS [facility] Last Admin: 01/08/19 23:26 Dose: 1 applic Diltiazem HCl (Cardizem Injection -) 20 mg IVPUSH ONCE PRN PRN Reason: for RVR Metronidazole (Flagyl 500mg Premixed Ivpb -) 500 mg in 100 mls @ 100 mls/hr IVPB Q8H-IV DOMINIC Last Admin: 01/08/19 17:54 Dose: 100 mls/hr Diltiazem HCl 125 mg/ Dextrose 125 mls @ 5 mls/hr IVPB TITR DOMINIC; Protocol Last Titration: 01/08/19 17:00 Dose: 0 mg/hr, 0 mls/hr Sodium Chloride (Normal Saline -) 1,000 mls @ 200 mls/hr IV ASDIR DOMINIC Last Admin: 01/08/19 15:21 Dose: 200 mls/hr Propofol (Diprivan -) 1,000,000 mcg in 100 mls @ 2.52 mls/hr IVPB TITR DOMINIC; Protocol Last Titration: 01/08/19 17:00 Dose: 0 mcg/kg/min, 0 mls/hr Aztreonam 1 gm/ Dextrose 50 mls @ 100 mls/hr IVPB Q8H-IV DOMINIC; Protocol Last Admin: 01/08/19 18:00 Dose: 100 mls/hr Vancomycin HCl (Vancomycin (Pre-Docked)) 1,000 mg in 250 mls @ 166.667 mls/hr IVPB Q12H [facility]IC; Protocol Last Admin: 01/08/19 15:17 Dose: 166.667 mls/hr Vasopressin 50 units/ Sodium (Chloride) 100 mls @ 4 mls/hr IVPB ASDIR DOMINIC; Protocol Last Titration: 01/08/19 22:50 Dose: 0 units/hr, 0 mls/hr Norepinephrine Bitartrate 8, (000 mcg/ Dextrose) 500 mls @ 18.75 mls/hr IV TITR DOMINIC; Protocol Last Titration: 01/08/19 23:10 Dose: 4 mcg/min, 15 mls/hr Dopamine HCl/Dextrose (Dopamine 400 Mg/D5w -) 400,000 mcg in 250 mls @ 15.751 mls/hr IVPB TITR [facility]INIC; Protocol Last Titration: 01/08/19 23:52 Dose: 8 mcg/kg/min, 25.202 mls/hr Insulin Aspart (Novolog Vial Sliding Scale -) 0 vial SQ Q6H [facility]IC; Protocol Last Admin: 01/08/19 18:10 Dose: Not Given Ipratropium [place] (Atrovent 0.02% Nebulizer -) 1 amp NEB RQID [facility] Last Admin: 01/08/19 21:30 Dose: 1 amp Methylprednisolone Sodium Succinate (Solu-Medrol -) 30 mg IVPUSH DAILY [facility] Last Admin: 01/08/19 09:09 Dose: 30 mg Morphine Sulfate (Morphine Injection -) 4 mg IVPUSH Q4H PRN PRN Reason: PAIN LEVEL 6-10 Last Admin: 01/08/19 05:14 Dose: 4 mg Mupirocin (Bactroban Ointment (For Decolonization) -) 1 applic NS BID [facility] Stop: 01/13/19 09:59 Last Admin: 01/08/19 23:26 Dose: 1 applic - Objective Vital Signs: Vital Signs Temperature 97.6 F 01/08/19 16:36 Pulse Rate 121 H 01/08/19 23:52 Respiratory Rate 12 01/09/19 00:25 Blood Pressure 118/107 H 01/08/19 23:52 O2 Sat by Pulse Oximetry (%) 99 01/08/19 16:37 Labs: CBC, BMP 01/08/19 21:45 01/08/19 22:50 INR, PTT INR 1.49 (0.83-1.09) H 01/08/19 05:30 <Semaj Graham - Last Filed: 01/09/19 01:00> Problem List - Problems (1) Acute on chronic diastolic CHF (congestive heart failure) Code(s): I50.33 - ACUTE ON CHRONIC DIASTOLIC (CONGESTIVE) HEART FAILURE (2) Atrial fibrillation with rapid ventricular response Code(s): I48.91 - UNSPECIFIED ATRIAL FIBRILLATION (3) COPD exacerbation Code(s): J44.1 - CHRONIC OBSTRUCTIVE PULMONARY DISEASE W (ACUTE) EXACERBATION (4) DVT prophylaxis Code(s): XSH3287 - (5) Shortness of breath Code(s): R06.02 - SHORTNESS OF BREATH (6) Leukocytosis Code(s): D72.829 - ELEVATED WHITE BLOOD CELL COUNT, UNSPECIFIED Qualifiers: Leukocytosis type: unspecified Qualified Code(s): D72.829 - Elevated white blood cell count, unspecified (7) Methadone dependence Code(s): F11.20 - OPIOID DEPENDENCE, UNCOMPLICATED (8) PAD (peripheral artery disease) Code(s): I73.9 - PERIPHERAL VASCULAR DISEASE, UNSPECIFIED (9) Substance abuse Code(s): F19.10 - OTHER PSYCHOACTIVE SUBSTANCE ABUSE, UNCOMPLICATED (10) Pre-operative cardiovascular examination, high risk surgery Code(s): Z01.810 - ENCOUNTER FOR PREPROCEDURAL CARDIOVASCULAR EXAMINATION (11) S/P aorto-bifemoral bypass surgery Code(s): Z95.828 - PRESENCE OF OTHER VASCULAR IMPLANTS AND GRAFTS <Semaj Graham - Last Filed: 01/09/19 01:00> Assessment/Plan asked by nurse to evaluate pt mentioned pt is intubated on vent setting PEEP 5 , TV 500, FIO2 80 % , RR 10 pt POD#0 for perforated viscus pt did not show any movement since he came back from OR around 2: 20 PM per nurses I did not appreciate any reflexes no Babinski , no gag reflex,pupils B/L not reactive to light , dilated wide fixed B/L pt is not responding to any verbal or pain stimuli Dr Castillo Anesthtiffany was informed who recommend to call material planner , I informed Dr Gómez who recommend CT head and start Vasopressin , Vitals : HR 108, BP 111/42 , temp 97.7, O2 sat @95 % PE: Head NC/AT Eyes: dilated wide fixed non reactive to light Neck : supple with left side central line started in OR 01/08/2019 Heart : ST 105, no murmurs appreciated Lung: decrease breath sounds at the bases Legs: warm dry , +2 DP pulse Neuro: intubated with no gag reflexe no babiski and no response to verbal or painful stimuli A/P Maintain BP with map > [address] IV fluids RL@ 200 cont abx maintain o2 Sat : 90 % surgery team was informed through Renetta HUYNH 10.48 pm I called his Viktoriya ([phone]) and updated her about pt current condition expressed pt desire to not be resuscitated I repeated his lab at 9 pm CBC, BMP 01/08/19 21:45 01/08/19 21:45 Kidney function is worsening BUN/CR 42/1.8 K 5.8 EKG ordered CBC, cmp, LA, Mg, phosphorus , D50 with 10 units insulin regular for hyperkalemia, Gluconate ca for heart membrane stabilization @11.00 PM pt HR drop to 50 Dopamin drip started improved heart rate to 113 IV fluids 2 L NS boluses started lab : Phosphorus 9 K 6.2 before the treatment, will repeat at 2 am <Luis Benitez - Last Filed: 01/09/19 00:14>
[2019-01-08] MEDS ORDERED: NOREPINEPHRINE BITARTRATE 4 MG/4 ML ML IV ONE (21:56)
[2019-01-08] MEDS ORDERED: MUPIROCIN 2% TOPICAL OINTMENT FOR DECOLONIZATION NS SCH (22:00)
[2019-01-08] MEDS ORDERED: NOREPINEPHRINE BITARTRATE 8,000 MCG in DEXTROSE 5%-WATER - 492 ML IV SCH (22:00)
[2019-01-08] MEDS ORDERED: CHLORHEXIDINE GLUCONATE 4% CLEANSER FOR DECOLONIZATION TP SCH ×2 (22:00)
[2019-01-08 22:14] LABS: BASO % 0.1 % (0-2.0); HEMOGLOBIN 12.8 GM/dL (11.7-16.9)
[2019-01-08 22:19] LABS: CALCIUM 7.6 mg/dL (8.5-10.1); CREATININE 1.8 mg/dL (0.55-1.3); POTASSIUM 5.8 mmol/L (3.5-5.1)
[2019-01-08] MEDS ORDERED: DEXTROSE 50%-WATER - 25 GM/50 ML VIAL IVPUSH ONE (22:30)
[2019-01-08] MEDS ORDERED: CALCIUM GLUCONATE 10% - 1,000 MG/10 ML VIAL IVPUSH ONE (22:35)
[2019-01-08] MEDS ORDERED: INSULIN REGULAR HUMAN 100 UNITS/ML *VIAL IVPUSH ONE (22:36)
[2019-01-08 22:47] LABS: HEMATOCRIT 41.7 % (35.4-49); LYMPH % 1.1 % (8-40); MCH 29.5 pg (25.7-33.7); MCHC 30.7 g/dl (32.0-35.9); MEAN CELL VOLUME 96.2 fl (80-96); MEAN PLT VOLUME 10.4 fl (7.5-11.1); MONO % 6.1 % (3.8-10.2); NEUT % 92.7 % (42.8-82.8); PLATELET COUNT 196 K/MM3 (134-434); RBC 4.33 M/mm3 (4.00-5.60); RDW 16.5 % (11.9-15.9); WHITE BLOOD COUNT 22.4 K/mm3 (4.0-10.0)
[2019-01-08] MEDS ORDERED: DOPAMINE 400 MG/D5W - 400,000 MCG/250 ML INFUS.BAG IVPB ONE (22:53)
[2019-01-08 22:57] LABS: PLATELET ESTIMATE ADEQUATE
[2019-01-08 22:58] LABS: ANISOCYTOSIS 1+
[2019-01-08] MEDS: DOPAMINE 400 MG/D5W - 400,000 MCG/250 ML INFUS.BAG IVPB SCH (23:00)
[2019-01-08] MEDS ORDERED: DEXTROSE 50%-WATER 25 GM/50 ML DISP.SYRIN ONE (23:31)
[2019-01-08 23:57] LABS: ALBUMIN 1.3 g/dl (3.4-5.0); ALK PHOS 64 U/L (45-117); ANION GAP 8 MMOL/L (8-16); BLOOD UREA NITROGEN 43 mg/dL (7-18); CALCIUM 7.4 mg/dL (8.5-10.1); CHLORIDE 103 mmol/L (98-107); CO2 25 mmol/L (21-32); CREATININE 1.8 mg/dL (0.55-1.3); GLUCOSE,RANDOM 170 mg/dL (74-106); MAGNESIUM 2.3 mg/dL (1.8-2.4); SGOT/AST 109 U/L (15-37); SGPT/ALT 58 U/L (13-61); SODIUM 136 mmol/L (136-145); TOT PROT 3.1 g/dl (6.4-8.2)
[2019-01-08 23:59] LABS: POTASSIUM 6.2 mmol/L (3.5-5.1)
[2019-01-09] LABS: PHOSPHOROUS > 9.0 mg/dL (2.5-4.9)
[2019-01-09] MEDS: AZTREONAM 1 GM in DEXTROSE 5%-WATER - 50 ML IVPB SCH ×2 (01:02→09:46)
[2019-01-09] MEDS: INSULIN SLIDING SCALE (NOVOLOG) 1 VIAL SQ SCH ×2 (01:18→06:00)
[2019-01-09] MEDS: VANCOMYCIN 1 GRAM (PRE-DOCKED) 1,000 MG/250 ML BAG IVPB SCH (02:35)
[2019-01-09 04:05] LABS: ALBUMIN 1.1 g/dl (3.4-5.0); BILIRUBIN,TOTAL 0.8 mg/dL (0.2-1); TOT PROT 2.6 g/dl (6.4-8.2)
[2019-01-09 04:08] LABS: CALCIUM 6.6 mg/dL (8.5-10.1)
[2019-01-09 06:27] LABS: HEMATOCRIT 35.1 % (35.4-49); HEMOGLOBIN 10.7 GM/dL (11.7-16.9); LYMPH % 1.2 % (8-40); MCH 29.9 pg (25.7-33.7); MCHC 30.4 g/dl (32.0-35.9); MEAN CELL VOLUME 98.3 fl (80-96); MEAN PLT VOLUME 10.4 fl (7.5-11.1); MONO % 7.1 % (3.8-10.2); NEUT % 91.7 % (42.8-82.8); PLATELET COUNT 156 K/MM3 (134-434); RBC 3.57 M/mm3 (4.00-5.60); RDW 16.7 % (11.9-15.9); WHITE BLOOD COUNT 21.3 K/mm3 (4.0-10.0)
[2019-01-09] MEDS ORDERED: SODIUM CHLORIDE 1,000 ML IV STA ×2 (06:47)
[2019-01-09] MEDS: DOPAMINE 400 MG/D5W - 400,000 MCG/250 ML INFUS.BAG IVPB SCH (07:12)
[2019-01-09 07:14] LABS: ALK PHOS 68 U/L (45-117); ANION GAP 9 MMOL/L (8-16); BILIRUBIN,TOTAL 0.9 mg/dL (0.2-1); BLOOD UREA NITROGEN 42 mg/dL (7-18); CALCIUM 7.2 mg/dL (8.5-10.1); CHLORIDE 107 mmol/L (98-107); CO2 23 mmol/L (21-32); GLUCOSE,RANDOM 183 mg/dL (74-106); MAGNESIUM 1.9 mg/dL (1.8-2.4); POTASSIUM 5.5 mmol/L (3.5-5.1); SGOT/AST > 2002 U/L (15-37); SGPT/ALT 1492 U/L (13-61); SODIUM 139 mmol/L (136-145); TOT PROT 2.5 g/dl (6.4-8.2)
[2019-01-09 07:23] LABS: PHOSPHOROUS 9.8 mg/dL (2.5-4.9)
[2019-01-09] MEDS: IPRATROPIUM BR 0.02% 0.5 MG/2.5 ML VIAL.NEB. NEB SCH (07:30)
--- NOTE | 2019-01-09 07:52 | SPA.POSTOP ---
- POST-OP NOTE POD #1 s/p Hartmanns' Procedure secondary to perforated sigmoid colon Patient remains intubated. On Levophed dripp at 8mcg/min and Dopamine 10mcg/kg/min. On IV Vanco per ID. Last Vital Signs Temp Pulse Resp BP Pulse Ox 94.6 F 60 14 102/66 79% 01/09/19 07:00 01/09/19 07:00 01/09/19 07:00 01/09/19 07:00 01/09/19 07:47 (AMINA Perales) CBC, BMP 01/09/19 05:30 01/09/19 05:30 Troponin 01/08/19 01/08/19 01/09/19 14:45 22:50 05:30 Troponin I 0.06 H 1.53 11.90 INR, PTT INR 1.49 (0.83-1.09) H 01/08/19 05:30 Hepatic Panel Total Bilirubin 0.9 mg/dL (0.2-1) 01/09/19 05:30 AST > 2002 U/L (15-37) H 01/09/19 05:30 ALT 1492 U/L (13-61) H 01/09/19 05:30 Alkaline Phosphatase 68 U/L (45-117) 01/09/19 05:30 Albumin 1.0 g/dl (3.4-5.0) L 01/09/19 05:30 OUTPUT 01/08/19 01/08/19 01/08/19 01/09/19 01/09/19 01/09/19 06:40 13:38 18:09 00:00 01:00 05:23 Colostomy 0 Left JUAN 70 Right JUAN 70 NGT 100 200 Alberto 350 100 0 10 Blood Type Blood Type O POSITIVE 01/08/19 05:30 PE Gen: Intubated Cor: Afib rate 50-60s Abd: Midline incision open/packed. LLQ colosotomy appears ischemic...? viability. Minimal serosanguis drianage in bag. Digitalized ostomy easily. : alberto to gravity (concentrated) LE: SCD's bilat. + edema. Mottled appearance to feet bilat Problem List - Problems (1) Status post Spenser procedure Assessment/Plan: 63 yo male s/p Spenser's Procedure secondary to perforated sigmoid colon. Remains intubated since surgery. Patient not doing well post-operatively. Sepsis --> Shock Liver --> AL --> MSOF Cont pressure support Cardio Consult ET care per Resp Therapy IV ABX per ID Moitor output Monitor labs Maintain BP with map > 65 Prognosis remains poor Cont ICU management Above plan discussed with Dr. Thapa and agrees Code(s): Z93.3 - COLOSTOMY STATUS (2) Multisystem organ failure Code(s): FLZ5197 - (3) COPD (chronic obstructive pulmonary disease) Code(s): J44.9 - CHRONIC OBSTRUCTIVE PULMONARY DISEASE, UNSPECIFIED Qualifiers: COPD type: unspecified COPD Qualified Code(s): J44.9 - Chronic obstructive pulmonary disease, unspecified (4) Leukocytosis Code(s): D72.829 - ELEVATED WHITE BLOOD CELL COUNT, UNSPECIFIED Qualifiers: Leukocytosis type: unspecified Qualified Code(s): D72.829 - Elevated white blood cell count, unspecified (5) Methadone dependence Code(s): F11.20 - OPIOID DEPENDENCE, UNCOMPLICATED (6) PAD (peripheral artery disease) Code(s): I73.9 - PERIPHERAL VASCULAR DISEASE, UNSPECIFIED Visit type - Case Type Case Type: ED Admission - Emergency Emergency Visit: Yes ED Registration Date: 01/08/19 Care time: The patient presented to the Emergency Department on the above date and was hospitalized for further evaluation of their emergent condition. - New patient This patient is new to me today: Yes Date on this admission: 01/09/19
--- NOTE | 2019-01-09 08:14 | PN ---
Physical Exam: SUBJECTIVE: Patient seen and examined at bedside. Pt was taken off of sedation and cardizem drip due to hypotension which was responding to fluids. Pt continued to be hypotensive and developed bradycardia. Also became hypothermic. Patient was placed on Levophed gtt and Dopamine. Leana hugger. Patient still not waking up even with sedation off. was called overnight and wanted patient to be DNR. This AM, was told about prognosis of patient, wanted patient to be comfort care only. OBJECTIVE: Vital Signs Period Temp Pulse Resp BP Sys/Chatterjee Pulse Ox Last 24 Hr 94.6 F-98.0 F 34-140 10-118 48-175/24-121 90-100 GENERAL: Intubated EYES: Dilated pupils no pupillary reflex. LUNGS: Breath sounds equal, clear to auscultation bilaterally, no wheezes, no crackles. Mechanically ventilated HEART: bradycardic ABDOMEN: Soft, nontender, nondistended, no bowel sounds. Ostomy shows ischemic bowel with minimal fecal material in ostomy. EXTREMITIES: mottled. No edema, faint pulses NEUROLOGICAL: Sedated. No pupillary reflex. SKIN: mottled, cold Laboratory Results - last 24 hr 01/08/19 01/08/19 01/08/19 05:30 05:30 14:45 WBC 20.8 H RBC 4.55 Hgb 13.3 Hct 42.8 MCV 94.0 MCH 29.2 MCHC 31.1 L RDW 16.6 H Plt Count 213 MPV 10.2 Absolute Neuts (auto) 19.2 H Total Counted 100 Neutrophils % 92.2 H Neutrophils % (Manual) 94.9 H 82.0 Band Neutrophils % 4.1 8.0 Lymphocytes % 2.0 L D Lymphocytes % (Manual) 0.0 L 4.0 L D Monocytes % 5.7 Monocytes % (Manual) 1 L 6 D Eosinophils % 0.0 D Eosinophils % (Manual) 0.0 Basophils % 0.1 Basophils % (Manual) 0.0 Myelocytes % (Man) 0 Promyelocytes % (Man) 0 Blast Cells % (Manual) 0 Nucleated RBC % 0 Metamyelocytes 0 Differential Comment Man diff performed Hypochromia 0 1+ Platelet Estimate Normal Adequate Platelet Comment Present Polychromasia 0 Poikilocytosis 2+ Anisocytosis 1+ Microcytosis 1+ 1+ Macrocytosis 0 Spherocytes 2+ Tear Drop Cells 1+ PTT (Actin FS) Sodium Potassium Chloride Carbon Dioxide Anion Gap BUN Creatinine Est GFR (CKD-EPI)AfAm Est GFR (CKD-EPI)NonAf POC Glucometer Random Glucose Lactic Acid Calcium Phosphorus Magnesium Total Bilirubin AST ALT Alkaline Phosphatase Creatine Kinase Troponin I Total Protein Albumin Blood Type O POSITIVE Antibody Screen Negative 01/08/19 01/08/19 01/08/19 14:45 14:45 21:45 WBC 22.4 H RBC 4.33 Hgb 12.8 Hct 41.7 MCV 96.2 H MCH 29.5 MCHC 30.7 L RDW 16.5 H Plt Count 196 MPV 10.4 Absolute Neuts (auto) 20.7 H Total Counted 100 Neutrophils % 92.7 H Neutrophils % (Manual) 88.0 H Band Neutrophils % 6.0 Lymphocytes % 1.1 L D Lymphocytes % (Manual) 1.0 L D Monocytes % 6.1 Monocytes % (Manual) 5 Eosinophils % 0.0 Eosinophils % (Manual) Basophils % 0.1 Basophils % (Manual) Myelocytes % (Man) Promyelocytes % (Man) Blast Cells % (Manual) Nucleated RBC % 0 Metamyelocytes Differential Comment Man diff performed Hypochromia 1+ Platelet Estimate Adequate Platelet Comment Polychromasia Poikilocytosis Anisocytosis 1+ Microcytosis 1+ Macrocytosis Spherocytes Tear Drop Cells PTT (Actin FS) Sodium 139 Potassium 4.6 Chloride 101 Carbon Dioxide 31 Anion Gap 7 L BUN 39 H Creatinine 1.3 Est GFR (CKD-EPI)AfAm 67.30 Est GFR (CKD-EPI)NonAf 58.07 POC Glucometer Random Glucose 132 H Lactic Acid Calcium 7.7 L Phosphorus Magnesium Total Bilirubin 0.4 AST 21 ALT 18 Alkaline Phosphatase 66 Creatine Kinase 46 Troponin I 0.06 H Total Protein 3.3 L Albumin 1.4 L Blood Type Antibody Screen 01/08/19 01/08/19 01/08/19 21:45 22:50 22:50 WBC RBC Hgb Hct MCV MCH MCHC RDW Plt Count MPV Absolute Neuts (auto) Total Counted Neutrophils % Neutrophils % (Manual) Band Neutrophils % Lymphocytes % Lymphocytes % (Manual) Monocytes % Monocytes % (Manual) Eosinophils % Eosinophils % (Manual) Basophils % Basophils % (Manual) Myelocytes % (Man) Promyelocytes % (Man) Blast Cells % (Manual) Nucleated RBC % Metamyelocytes Differential Comment Hypochromia Platelet Estimate Platelet Comment Polychromasia Poikilocytosis Anisocytosis Microcytosis Macrocytosis Spherocytes Tear Drop Cells PTT (Actin FS) Sodium 138 136 Potassium 5.8 H 6.2 H* Chloride 104 103 Carbon Dioxide 28 25 Anion Gap 7 L 8 BUN 42 H 43 H Creatinine 1.8 H 1.8 H Est GFR (CKD-EPI)AfAm 45.41 45.41 Est GFR (CKD-EPI)NonAf 39.18 39.18 POC Glucometer Random Glucose 188 H 170 H Lactic Acid 4.8 H* Calcium 7.6 L 7.4 L Phosphorus > 9.0 H* Magnesium 2.3 Total Bilirubin 1.0 AST 109 H ALT 58 Alkaline Phosphatase 64 Creatine Kinase Troponin I Total Protein 3.1 L Albumin 1.3 L Blood Type Antibody Screen 01/08/19 01/09/19 01/09/19 22:50 01:12 02:30 WBC RBC Hgb Hct MCV MCH MCHC RDW Plt Count MPV Absolute Neuts (auto) Total Counted Neutrophils % Neutrophils % (Manual) Band Neutrophils % Lymphocytes % Lymphocytes % (Manual) Monocytes % Monocytes % (Manual) Eosinophils % Eosinophils % (Manual) Basophils % Basophils % (Manual) Myelocytes % (Man) Promyelocytes % (Man) Blast Cells % (Manual) Nucleated RBC % Metamyelocytes Differential Comment Hypochromia Platelet Estimate Platelet Comment Polychromasia Poikilocytosis Anisocytosis Microcytosis Macrocytosis Spherocytes Tear Drop Cells PTT (Actin FS) Sodium 140 Potassium 5.0 Chloride 106 Carbon Dioxide 25 Anion Gap 8 BUN 43 H Creatinine 2.0 H Est GFR (CKD-EPI)AfAm 39.98 Est GFR (CKD-EPI)NonAf 34.49 POC Glucometer 199 Random Glucose 198 H Lactic Acid Calcium 6.6 L* Phosphorus 9.0 H* Magnesium Total Bilirubin 0.8 AST 1339 H ALT 739 H Alkaline Phosphatase 65 Creatine Kinase Troponin I 1.53 H* Total Protein 2.6 L Albumin 1.1 L Blood Type Antibody Screen 01/09/19 01/09/19 01/09/19 02:30 05:17 05:30 WBC 21.3 H RBC 3.57 L Hgb 10.7 L Hct 35.1 L D MCV 98.3 H MCH 29.9 MCHC 30.4 L RDW 16.7 H Plt Count 156 D MPV 10.4 Absolute Neuts (auto) 19.5 H Total Counted Neutrophils % 91.7 H Neutrophils % (Manual) Band Neutrophils % Lymphocytes % 1.2 L Lymphocytes % (Manual) Monocytes % 7.1 Monocytes % (Manual) Eosinophils % 0.0 Eosinophils % (Manual) Basophils % 0.0 Basophils % (Manual) Myelocytes % (Man) Promyelocytes % (Man) Blast Cells % (Manual) Nucleated RBC % 0 Metamyelocytes Differential Comment Hypochromia Platelet Estimate Platelet Comment Polychromasia Poikilocytosis Anisocytosis Microcytosis Macrocytosis Spherocytes Tear Drop Cells PTT (Actin FS) Sodium Potassium Chloride Carbon Dioxide Anion Gap BUN Creatinine Est GFR (CKD-EPI)AfAm Est GFR (CKD-EPI)NonAf POC Glucometer 170 Random Glucose Lactic Acid 4.3 H* Calcium Phosphorus Magnesium Total Bilirubin AST ALT Alkaline Phosphatase Creatine Kinase Troponin I Total Protein Albumin Blood Type Antibody Screen 01/09/19 01/09/19 01/09/19 05:30 05:30 05:30 WBC RBC Hgb Hct MCV MCH MCHC RDW Plt Count MPV Absolute Neuts (auto) Total Counted Neutrophils % Neutrophils % (Manual) Band Neutrophils % Lymphocytes % Lymphocytes % (Manual) Monocytes % Monocytes % (Manual) Eosinophils % Eosinophils % (Manual) Basophils % Basophils % (Manual) Myelocytes % (Man) Promyelocytes % (Man) Blast Cells % (Manual) Nucleated RBC % Metamyelocytes Differential Comment Hypochromia Platelet Estimate Platelet Comment Polychromasia Poikilocytosis Anisocytosis Microcytosis Macrocytosis Spherocytes Tear Drop Cells PTT (Actin FS) 32.5 Sodium 139 Potassium 5.5 H Chloride 107 Carbon Dioxide 23 Anion Gap 9 BUN 42 H Creatinine 2.0 H Est GFR (CKD-EPI)AfAm 39.98 Est GFR (CKD-EPI)NonAf 34.49 POC Glucometer Random Glucose 183 H Lactic Acid 4.5 H* Calcium 7.2 L Phosphorus 9.8 H* Magnesium 1.9 Total Bilirubin 0.9 AST > 2002 H ALT 1492 H Alkaline Phosphatase 68 Creatine Kinase Troponin I 11.90 H* Total Protein 2.5 L Albumin 1.0 L Blood Type Antibody Screen Active Medications Generic Name Dose Route Start Last Admin Trade Name Freq PRN Reason Stop Dose Admin Albuterol Sulfate 1 puff 01/08/19 02:14 01/08/19 03:57 Ventolin Hfa Inhaler - IH 1 puff Q6H PRN Administration SHORT OF BREATH/WHEEZING Budesonide/Formoterol Fumarate 2 puff 01/08/19 10:00 01/08/19 23:26 Symbicort 160/4.5mcg - IH Not Given BID DOMINIC Chlorhexidine Gluconate 1 applic 01/08/19 22:00 01/08/19 23:26 Hibiclens For Decolonization - TP 1 applic HS DOMINIC Administration Diltiazem HCl 20 mg 01/08/19 11:50 Cardizem Injection - IVPUSH ONCE PRN for RVR Metronidazole 500 mg in 100 mls @ 100 mls/hr 01/08/19 09:00 01/09/19 01:03 Flagyl 500mg Premixed Ivpb - IVPB 100 mls/hr Q8H-IV DOMINIC Administration Diltiazem HCl 125 mg/ Dextrose 125 mls @ 5 mls/hr 01/08/19 09:45 01/08/19 17: 00 IVPB 0 mg/hr TITR DOMINIC 0 mls/hr Titration Protocol 5 MG/HR Sodium Chloride 1,000 mls @ 200 mls/hr 01/08/19 14:30 01/08/19 15:21 Normal Saline - IV 200 mls/hr ASDIR DOMINIC Administration Propofol 1,000,000 mcg in 100 mls @ 2.52 mls/hr 01/08/19 14:45 01/08/19 17:00 Diprivan - IVPB 0 mcg/kg/min TITR DOMINIC 0 mls/hr Titration Protocol 5 MCG/KG/MIN Aztreonam 1 gm/ Dextrose 50 mls @ 100 mls/hr 01/08/19 18:00 01/09/19 01:02 IVPB 100 mls/hr Q8H-IV DOMINIC Administration Protocol Vancomycin HCl 1,000 mg in 250 mls @ 166.667 mls/hr 01/08/19 15:00 01/09/19 02:35 Vancomycin (Pre-Docked) IVPB 166.667 mls/hr Q12H DOMINIC Administration Protocol Vasopressin 50 units/ Sodium 100 mls @ 4 mls/hr 01/08/19 20:15 01/08/19 22:50 Chloride IVPB 0 units/hr ASDIR DOMINIC 0 mls/hr Titration Protocol 2 UNITS/HR Norepinephrine Bitartrate 8, 500 mls @ 18.75 mls/hr 01/08/19 22:00 01/09/19 03:49 000 mcg/ Dextrose IV 8 mcg/min TITR DOMINIC 30 mls/hr Titration Protocol 5 MCG/MIN Dopamine HCl/Dextrose 400,000 mcg in 250 mls @ 15.751 mls/hr 01/08/19 23:15 01/09/19 07:12 Dopamine 400 Mg/D5w - IVPB 10 mcg/kg/min TITR DOMINIC 31.502 mls/hr Administration Protocol 5 MCG/KG/MIN Insulin Aspart 0 vial 01/08/19 00:45 01/09/19 06:00 Novolog Vial Sliding Scale - SQ Not Given Q6H DOMINIC Protocol Ipratropium [place] 1 amp 01/08/19 12:00 01/08/19 21:30 Atrovent 0.02% Nebulizer - NEB 1 amp RQID DOMINIC Administration Methylprednisolone Sodium Succinate 30 mg 01/08/19 10:00 01/08/19 09:09 Solu-Medrol - IVPUSH 30 mg DAILY DOMINIC Administration Morphine Sulfate 4 mg 01/08/19 00:35 01/08/19 05:14 Morphine Injection - IVPUSH 4 mg Q4H PRN Administration PAIN LEVEL 6-10 Mupirocin 1 applic 01/08/19 10:00 01/08/19 23:26 Bactroban Ointment (For Decolonization) - NS 01/13/19 09:59 1 applic BID DOMINIC Administration ASSESSMENT/PLAN: Labs show signs of multisystem organ failure. Metabolic and respiratory acidosis , shock liver, Cardiac ischemia likely 2/2 demand, worsening kidney function, hyperkalemia, hyperphosphatemia, absent cranial nerve function. Given extent of organ injury and absent cranial nerves, prognosis is poor. was informed and wanted patient to be DNR and comfort care. Visit type - Emergency Visit Emergency Visit: Yes ED Registration Date: 01/08/19 Care time: The patient presented to the Emergency Department on the above date and was hospitalized for further evaluation of their emergent condition. - New Patient This patient is new to me today: No - Critical Care Critical Care patient: Yes Total Critical Care Time (in minutes): 40 Critical Care Statement: The care of this patient involved high complexity decision making to prevent further life threatening deterioration of the patient 's condition and/or to evaluate & treat vital organ system(s) failure or risk of failure.
--- NOTE | 2019-01-09 08:29 | PN ---
Physical Exam: SUBJECTIVE: Patient seen and examined OBJECTIVE: Vital Signs Period Temp Pulse Resp BP Sys/Chatterjee Pulse Ox Last 24 Hr 94.6 F-98.0 F 34-140 10-118 48-175/24-121 90-100 GENERAL: The patient is awake, alert, and fully oriented, in no acute distress. HEAD: Normal with no signs of trauma. EYES: PERRL, extraocular movements intact, sclera anicteric, conjunctiva clear. No ptosis. ENT: Ears normal, nares patent, oropharynx clear without exudates, moist mucous membranes. NECK: Trachea midline, full range of motion, supple. LUNGS: Breath sounds equal, clear to auscultation bilaterally, no wheezes, no crackles, no accessory muscle use. HEART: Regular rate and rhythm, S1, S2 without murmur, rub or gallop. ABDOMEN: Soft, nontender, nondistended, normoactive bowel sounds, no guarding, no rebound, no hepatosplenomegaly, no masses. EXTREMITIES: 2+ pulses, warm, well-perfused, no edema. NEUROLOGICAL: Cranial nerves II through XII grossly intact. Normal speech, gait not observed. PSYCH: Normal mood, normal affect. SKIN: Warm, dry, normal turgor, no rashes or lesions noted Laboratory Results - last 24 hr 01/08/19 01/08/19 01/08/19 05:30 05:30 14:45 WBC 20.8 H RBC 4.55 Hgb 13.3 Hct 42.8 MCV 94.0 MCH 29.2 MCHC 31.1 L RDW 16.6 H Plt Count 213 MPV 10.2 Absolute Neuts (auto) 19.2 H Total Counted 100 Neutrophils % 92.2 H Neutrophils % (Manual) 94.9 H 82.0 Band Neutrophils % 4.1 8.0 Lymphocytes % 2.0 L D Lymphocytes % (Manual) 0.0 L 4.0 L D Monocytes % 5.7 Monocytes % (Manual) 1 L 6 D Eosinophils % 0.0 D Eosinophils % (Manual) 0.0 Basophils % 0.1 Basophils % (Manual) 0.0 Myelocytes % (Man) 0 Promyelocytes % (Man) 0 Blast Cells % (Manual) 0 Nucleated RBC % 0 Metamyelocytes 0 Differential Comment Man diff performed Hypochromia 0 1+ Platelet Estimate Normal Adequate Platelet Comment Present Polychromasia 0 Poikilocytosis 2+ Anisocytosis 1+ Microcytosis 1+ 1+ Macrocytosis 0 Spherocytes 2+ Tear Drop Cells 1+ PTT (Actin FS) Sodium Potassium Chloride Carbon Dioxide Anion Gap BUN Creatinine Est GFR (CKD-EPI)AfAm Est GFR (CKD-EPI)NonAf POC Glucometer Random Glucose Lactic Acid Calcium Phosphorus Magnesium Total Bilirubin AST ALT Alkaline Phosphatase Creatine Kinase Troponin I Total Protein Albumin Blood Type O POSITIVE Antibody Screen Negative 01/08/19 01/08/19 01/08/19 14:45 14:45 21:45 WBC 22.4 H RBC 4.33 Hgb 12.8 Hct 41.7 MCV 96.2 H MCH 29.5 MCHC 30.7 L RDW 16.5 H Plt Count 196 MPV 10.4 Absolute Neuts (auto) 20.7 H Total Counted 100 Neutrophils % 92.7 H Neutrophils % (Manual) 88.0 H Band Neutrophils % 6.0 Lymphocytes % 1.1 L D Lymphocytes % (Manual) 1.0 L D Monocytes % 6.1 Monocytes % (Manual) 5 Eosinophils % 0.0 Eosinophils % (Manual) Basophils % 0.1 Basophils % (Manual) Myelocytes % (Man) Promyelocytes % (Man) Blast Cells % (Manual) Nucleated RBC % 0 Metamyelocytes Differential Comment Man diff performed Hypochromia 1+ Platelet Estimate Adequate Platelet Comment Polychromasia Poikilocytosis Anisocytosis 1+ Microcytosis 1+ Macrocytosis Spherocytes Tear Drop Cells PTT (Actin FS) Sodium 139 Potassium 4.6 Chloride 101 Carbon Dioxide 31 Anion Gap 7 L BUN 39 H Creatinine 1.3 Est GFR (CKD-EPI)AfAm 67.30 Est GFR (CKD-EPI)NonAf 58.07 POC Glucometer Random Glucose 132 H Lactic Acid Calcium 7.7 L Phosphorus Magnesium Total Bilirubin 0.4 AST 21 ALT 18 Alkaline Phosphatase 66 Creatine Kinase 46 Troponin I 0.06 H Total Protein 3.3 L Albumin 1.4 L Blood Type Antibody Screen 01/08/19 01/08/19 01/08/19 21:45 22:50 22:50 WBC RBC Hgb Hct MCV MCH MCHC RDW Plt Count MPV Absolute Neuts (auto) Total Counted Neutrophils % Neutrophils % (Manual) Band Neutrophils % Lymphocytes % Lymphocytes % (Manual) Monocytes % Monocytes % (Manual) Eosinophils % Eosinophils % (Manual) Basophils % Basophils % (Manual) Myelocytes % (Man) Promyelocytes % (Man) Blast Cells % (Manual) Nucleated RBC % Metamyelocytes Differential Comment Hypochromia Platelet Estimate Platelet Comment Polychromasia Poikilocytosis Anisocytosis Microcytosis Macrocytosis Spherocytes Tear Drop Cells PTT (Actin FS) Sodium 138 136 Potassium 5.8 H 6.2 H* Chloride 104 103 Carbon Dioxide 28 25 Anion Gap 7 L 8 BUN 42 H 43 H Creatinine 1.8 H 1.8 H Est GFR (CKD-EPI)AfAm 45.41 45.41 Est GFR (CKD-EPI)NonAf 39.18 39.18 POC Glucometer Random Glucose 188 H 170 H Lactic Acid 4.8 H* Calcium 7.6 L 7.4 L Phosphorus > 9.0 H* Magnesium 2.3 Total Bilirubin 1.0 AST 109 H ALT 58 Alkaline Phosphatase 64 Creatine Kinase Troponin I Total Protein 3.1 L Albumin 1.3 L Blood Type Antibody Screen 01/08/19 01/09/19 01/09/19 22:50 01:12 02:30 WBC RBC Hgb Hct MCV MCH MCHC RDW Plt Count MPV Absolute Neuts (auto) Total Counted Neutrophils % Neutrophils % (Manual) Band Neutrophils % Lymphocytes % Lymphocytes % (Manual) Monocytes % Monocytes % (Manual) Eosinophils % Eosinophils % (Manual) Basophils % Basophils % (Manual) Myelocytes % (Man) Promyelocytes % (Man) Blast Cells % (Manual) Nucleated RBC % Metamyelocytes Differential Comment Hypochromia Platelet Estimate Platelet Comment Polychromasia Poikilocytosis Anisocytosis Microcytosis Macrocytosis Spherocytes Tear Drop Cells PTT (Actin FS) Sodium 140 Potassium 5.0 Chloride 106 Carbon Dioxide 25 Anion Gap 8 BUN 43 H Creatinine 2.0 H Est GFR (CKD-EPI)AfAm 39.98 Est GFR (CKD-EPI)NonAf 34.49 POC Glucometer 199 Random Glucose 198 H Lactic Acid Calcium 6.6 L* Phosphorus 9.0 H* Magnesium Total Bilirubin 0.8 AST 1339 H ALT 739 H Alkaline Phosphatase 65 Creatine Kinase Troponin I 1.53 H* Total Protein 2.6 L Albumin 1.1 L Blood Type Antibody Screen 01/09/19 01/09/19 01/09/19 02:30 05:17 05:30 WBC 21.3 H RBC 3.57 L Hgb 10.7 L Hct 35.1 L D MCV 98.3 H MCH 29.9 MCHC 30.4 L RDW 16.7 H Plt Count 156 D MPV 10.4 Absolute Neuts (auto) 19.5 H Total Counted Neutrophils % 91.7 H Neutrophils % (Manual) Band Neutrophils % Lymphocytes % 1.2 L Lymphocytes % (Manual) Monocytes % 7.1 Monocytes % (Manual) Eosinophils % 0.0 Eosinophils % (Manual) Basophils % 0.0 Basophils % (Manual) Myelocytes % (Man) Promyelocytes % (Man) Blast Cells % (Manual) Nucleated RBC % 0 Metamyelocytes Differential Comment Hypochromia Platelet Estimate Platelet Comment Polychromasia Poikilocytosis Anisocytosis Microcytosis Macrocytosis Spherocytes Tear Drop Cells PTT (Actin FS) Sodium Potassium Chloride Carbon Dioxide Anion Gap BUN Creatinine Est GFR (CKD-EPI)AfAm Est GFR (CKD-EPI)NonAf POC Glucometer 170 Random Glucose Lactic Acid 4.3 H* Calcium Phosphorus Magnesium Total Bilirubin AST ALT Alkaline Phosphatase Creatine Kinase Troponin I Total Protein Albumin Blood Type Antibody Screen 01/09/19 01/09/19 01/09/19 05:30 05:30 05:30 WBC RBC Hgb Hct MCV MCH MCHC RDW Plt Count MPV Absolute Neuts (auto) Total Counted Neutrophils % Neutrophils % (Manual) Band Neutrophils % Lymphocytes % Lymphocytes % (Manual) Monocytes % Monocytes % (Manual) Eosinophils % Eosinophils % (Manual) Basophils % Basophils % (Manual) Myelocytes % (Man) Promyelocytes % (Man) Blast Cells % (Manual) Nucleated RBC % Metamyelocytes Differential Comment Hypochromia Platelet Estimate Platelet Comment Polychromasia Poikilocytosis Anisocytosis Microcytosis Macrocytosis Spherocytes Tear Drop Cells PTT (Actin FS) 32.5 Sodium 139 Potassium 5.5 H Chloride 107 Carbon Dioxide 23 Anion Gap 9 BUN 42 H Creatinine 2.0 H Est GFR (CKD-EPI)AfAm 39.98 Est GFR (CKD-EPI)NonAf 34.49 POC Glucometer Random Glucose 183 H Lactic Acid 4.5 H* Calcium 7.2 L Phosphorus 9.8 H* Magnesium 1.9 Total Bilirubin 0.9 AST > 2002 H ALT 1492 H Alkaline Phosphatase 68 Creatine Kinase Troponin I 11.90 H* Total Protein 2.5 L Albumin 1.0 L Blood Type Antibody Screen Active Medications Generic Name Dose Route Start Last Admin Trade Name Freq PRN Reason Stop Dose Admin Albuterol Sulfate 1 puff 01/08/19 02:14 01/08/19 03:57 Ventolin Hfa Inhaler - IH 1 puff Q6H PRN Administration SHORT OF BREATH/WHEEZING Budesonide/Formoterol Fumarate 2 puff 01/08/19 10:00 01/08/19 23:26 Symbicort 160/4.5mcg - IH Not Given BID DOMINIC Chlorhexidine Gluconate 1 applic 01/08/19 22:00 01/08/19 23:26 Hibiclens For Decolonization - TP 1 applic HS DOMINIC Administration Diltiazem HCl 20 mg 01/08/19 11:50 Cardizem Injection - IVPUSH ONCE PRN for RVR Metronidazole 500 mg in 100 mls @ 100 mls/hr 01/08/19 09:00 01/09/19 01:03 Flagyl 500mg Premixed Ivpb - IVPB 100 mls/hr Q8H-IV DOMINIC Administration Diltiazem HCl 125 mg/ Dextrose 125 mls @ 5 mls/hr 01/08/19 09:45 01/08/19 17: 00 IVPB 0 mg/hr TITR DOMINIC 0 mls/hr Titration Protocol 5 MG/HR Sodium Chloride 1,000 mls @ 200 mls/hr 01/08/19 14:30 01/08/19 15:21 Normal Saline - IV 200 mls/hr ASDIR DOMINIC Administration Propofol 1,000,000 mcg in 100 mls @ 2.52 mls/hr 01/08/19 14:45 01/08/19 17:00 Diprivan - IVPB 0 mcg/kg/min TITR DOMINIC 0 mls/hr Titration Protocol 5 MCG/KG/MIN Aztreonam 1 gm/ Dextrose 50 mls @ 100 mls/hr 01/08/19 18:00 01/09/19 01:02 IVPB 100 mls/hr Q8H-IV DOMINIC Administration Protocol Vancomycin HCl 1,000 mg in 250 mls @ 166.667 mls/hr 01/08/19 15:00 01/09/19 02:35 Vancomycin (Pre-Docked) IVPB 166.667 mls/hr Q12H DOMINIC Administration Protocol Vasopressin 50 units/ Sodium 100 mls @ 4 mls/hr 01/08/19 20:15 01/08/19 22:50 Chloride IVPB 0 units/hr ASDIR DOMINIC 0 mls/hr Titration Protocol 2 UNITS/HR Norepinephrine Bitartrate 8, 500 mls @ 18.75 mls/hr 01/08/19 22:00 01/09/19 03:49 000 mcg/ Dextrose IV 8 mcg/min TITR DOMINIC 30 mls/hr Titration Protocol 5 MCG/MIN Dopamine HCl/Dextrose 400,000 mcg in 250 mls @ 15.751 mls/hr 01/08/19 23:15 01/09/19 08:14 Dopamine 400 Mg/D5w - IVPB 15 mcg/kg/min TITR DOMINIC 47.253 mls/hr Titration Protocol 5 MCG/KG/MIN Insulin Aspart 0 vial 01/08/19 00:45 01/09/19 06:00 Novolog Vial Sliding Scale - SQ Not Given Q6H [facility] Protocol Ipratropium [place] 1 amp 01/08/19 12:00 01/08/19 21:30 Atrovent 0.02% Nebulizer - NEB 1 amp RQID DOMINIC Administration Methylprednisolone Sodium Succinate 30 mg 01/08/19 10:00 01/08/19 09:09 Solu-Medrol - IVPUSH 30 mg DAILY DOMINIC Administration Morphine Sulfate 4 mg 01/08/19 00:35 01/08/19 05:14 Morphine Injection - IVPUSH 4 mg Q4H PRN Administration PAIN LEVEL 6-10 Mupirocin 1 applic 01/08/19 10:00 01/08/19 23:26 Bactroban Ointment (For Decolonization) - NS 01/13/19 09:59 1 applic BID DOMINIC Administration ASSESSMENT/PLAN:
[2019-01-09] MEDS ORDERED: ALBUTEROL SO4 0.083% IH SOL 2.5 MG/3 ML VIAL.NEB. NEB ONE (09:04)
[2019-01-09] MEDS ORDERED: ALBUTEROL SO4 2.5/IPRATROPIUM 0.5 INH SOL 3 ML VIAL.NEB. NEB ONE ×2 (09:06)
[2019-01-09 09:14] LABS: VENOUS PO2 37.6 mmHg (30-40)
--- NOTE | 2019-01-09 09:14 | PN ---
Progress Note, Physician Chief Complaint: Remained intubated in Hypotention on pressors - Objective Vital Signs: Vital Signs Temperature 94.6 F L 01/09/19 07:00 Pulse Rate 45 L 01/09/19 09:05 Respiratory Rate 15 01/09/19 08:32 Blood Pressure 73/42 L 01/09/19 09:05 O2 Sat by Pulse Oximetry (%) 96 01/08/19 22:00 Middle aged man on Vent unresponsive HEENT: ETT and NG at place NECK: IJJ CHEST: B/L Crepts CVS: S1S2 ABD: s/p surgery distended EXT: Edema [employer]TELLIGENCE DIRECT[employer]; unresponsive Labs: CBC, BMP 01/09/19 05:30 01/09/19 05:30 INR, PTT INR 1.49 (0.83-1.09) H 01/08/19 05:30 Problem List - Problems (1) End of life care Assessment/Plan: Considering patient critical condition and reftactory shok very poor prognosis decided for comfort care , no iV abx, DC Vent and no abx or hydration, patient after removing lfe suppor. Code(s): Z51.5 - ENCOUNTER FOR PALLIATIVE CARE
[2019-01-09] MEDS ORDERED: AZTREONAM 1 GM VIAL (RESTRICTED TO ID) ONE (09:27)
[2019-01-09] MEDS ORDERED: DEXTROSE 5%-WATER - 50 ML IVPB ONE (09:27)
[2019-01-09 09:38] LABS: VENOUS PH 6.86 (7.31-7.41)
--- NOTE | 2019-01-09 09:50 | EKG ---
Test Reason : Blood Pressure : / mmHG Vent. Rate : 047 BPM Atrial Rate : 064 BPM P-R Int : 000 ms QRS Dur : 090 ms QT Int : 444 ms P-R-T Axes : 000 069 150 degrees QTc Int : 392 ms ATRIAL FIBRILLATION WITH SLOW VENTRICULAR RESPONSE LOW VOLTAGE QRS ABNORMAL ECG WHEN COMPARED WITH ECG OF 08-JAN-2019 23:09, ATRIAL FIBRILLATION HAS REPLACED ATRIAL FLUTTER VENT. RATE HAS DECREASED BY 28 BPM Confirmed by NEERU RAIN, CARON ([id number]) on 01/09/2019 9:49:44 AM Referred By: Confirmed By:CARON SIDDIQI MD
--- NOTE | 2019-01-09 09:53 | EKG ---
Test Reason : Blood Pressure : / mmHG Vent. Rate : 075 BPM Atrial Rate : 300 BPM P-R Int : 000 ms QRS Dur : 120 ms QT Int : 386 ms P-R-T Axes : 000 080 172 degrees QTc Int : 431 ms ATRIAL FLUTTER WITH VARIABLE A-V BLOCK NON-SPECIFIC INTRA-VENTRICULAR CONDUCTION DELAY MARKED ST ABNORMALITY, POSSIBLE LATERAL SUBENDOCARDIAL INJURY ABNORMAL ECG WHEN COMPARED WITH ECG OF 08-JAN-2019 09:34, ATRIAL FLUTTER HAS REPLACED ATRIAL FIBRILLATION VENT. RATE HAS DECREASED BY 37 BPM Confirmed by NEERU RAIN, CARON ([id number]) on 01/09/2019 9:52:46 AM Referred By: Ady HANNON Confirmed By:CARON SIDDIQI MD
[2019-01-09 09:56] LABS: ANISOCYTOSIS 0; MACROCYTOSIS 0; PLATELET ESTIMATE NORMAL
--- NOTE | 2019-01-09 09:59 | EKG ---
Test Reason : Blood Pressure : / mmHG Vent. Rate : 126 BPM Atrial Rate : 396 BPM P-R Int : 000 ms QRS Dur : 074 ms QT Int : 324 ms P-R-T Axes : 000 073 218 degrees QTc Int : 469 ms ATRIAL FIBRILLATION WITH RAPID VENTRICULAR REPONSE MARKED ST ABNORMALITY, POSSIBLE ANTERIOR SUBENDOCARDIAL INJURY ABNORMAL ECG WHEN COMPARED WITH ECG OF 07-JAN-2019 18:14, Confirmed by CARON SIDDIQI MD ([id number]) on 01/09/2019 9:59:22 AM Referred By: Confirmed By:CARON SIDDIQI MD
--- NOTE | 2019-01-09 10:03 | PN ---
Progress Note (short form) - Note Progress Note: Spoke with patient's , Yessi. Made her aware that patient is in mulit-organ failure. She acknowledges he is DNR. She does not want him to be in pain and would like im on morphine as needed for pain. Patient agrees to comfort measures at this time. She will come in as soon as she can.
[2019-01-09] MEDS: methylPREDNISolone NA SUCC 40 MG/1 ML VIAL IVPUSH SCH (10:07)
[2019-01-09 10:25] LABS: INR 1.65 (0.83-1.09); PROTHROMBIN TIME (PATIENT) 19.6 SEC (9.7-13.0)
[2019-01-09 10:26] VITALS: BP 68/38; PULSE 43; TEMP 93.8
[2019-01-09] MEDS ORDERED: MORPHINE 100 MG in SODIUM CHLORIDE 98 ML IVPB SCH (11:30)
--- NOTE | 2019-01-09 11:46 | PN ---
Teaching Attending Note Name of Resident: Comfort Novak ATTENDING PHYSICIAN STATEMENT I saw and evaluated the patient. I reviewed the resident's note and discussed the case with the resident. I agree with the resident's findings and plan as documented. SUBJECTIVE: Pt seen and examined in the ICU. s/p exploratory laparotomy found to have a perforated sigmoid s/p Billings's Procedure. Now in multiorgan failure with profound metabolic acidosis on levophed and dopamine gtts. Cranial reflexes absent but with spontaneous respirations. updated on pt's condition and made pt comfort care. OBJECTIVE: Vital Signs Period Temp Pulse Resp BP Sys/Chatterjee Pulse Ox Last 24 Hr 93.8 F-97.8 F 34-140 10-118 48-175/24-121 96-100 Intake & Output 01/06/19 01/07/19 01/08/19 01/09/19 23:59 23:59 23:59 23:59 Intake Total 10566 6130 Output Total 860 350 Balance 9625 5780 Weight 83.234 kg 84.005 kg 97.5 kg Gen: intubated, unresponsive, mottled Heart: bradycardic Lung: bilateral rhonchi Abd: soft, +ostomy dusy Ext: + edema CBC, BMP 01/09/19 05:30 01/09/19 05:30 Laboratory Tests 01/09/19 01/09/19 02:30 05:30 Lactic Acid 4.3 H* AST > 2002 H ALT 1492 H Troponin I 11.90 H* Active Medications Chlorhexidine Gluconate (Hibiclens For Decolonization -) 1 applic TP HS DOMINIC Last Admin: 01/08/19 23:26 Dose: 1 applic Morphine Sulfate 100 mg/ (Sodium Chloride) 100 mls @ 1 mls/hr IVPB TITR DOMINIC; Protocol Morphine Sulfate (Morphine Injection -) 4 mg IVPUSH Q4H PRN PRN Reason: PAIN LEVEL 6-10 Last Admin: 01/08/19 05:14 Dose: 4 mg Mupirocin (Bactroban Ointment (For Decolonization) -) 1 applic NS BID DOMINIC Stop: 01/13/19 09:59 Last Admin: 01/08/19 23:26 Dose: 1 applic ASSESSMENT AND PLAN: Pneumoperitoneum/Perforated Sigmoid Colon s/p ex-lap/Billings's Procedure Septic Shock Acute Kidney Injury Lactic Acidosis Shock Liver +Troponins likely Demand Ischemia Atrial Fibrillation with RVR LV Diastolic Dysfunction Pulmonary HTN COPD HTN DM Hyperlipidemia PAD - comfort measures initiated and plan for compassionate extubation - morphine for comfort critical care time spent in reviewing chart, evaluating patient and formulating plan 35 min
--- NOTE | 2019-01-09 11:55 | PN ---
Physical Exam: SUBJECTIVE: Patient seen and examined spoke with - she decided to make comfort measures only- she did not want patient to be intubated anymore; she wanted no more lab draws or imaging, only medications for pain - patient was extubated and 45 mins later OBJECTIVE: Vital Signs Period Temp Pulse Resp BP Sys/Chatterjee Pulse Ox Last 24 Hr 93.8 F-97.8 F 34-140 10-118 48-175/24-121 96-100 GENERAL: Intubated EYES: Dilated pupils no pupillary reflex. NGT in place draining bloody fluid LUNGS: Breath sounds equal, clear to auscultation bilaterally, no wheezes, no crackles. Mechanically ventilated HEART: bradycardic ABDOMEN: Soft, nontender, nondistended, no bowel sounds. Ostomy shows ischemic bowel with minimal fecal material in ostomy. EXTREMITIES: mottled. No edema, faint pulses NEUROLOGICAL: Sedated. No pupillary reflex. SKIN: mottled, cold Laboratory Results - last 24 hr 01/08/19 01/08/19 01/08/19 05:30 14:45 14:45 WBC 20.8 H RBC 4.55 Hgb 13.3 Hct 42.8 MCV 94.0 MCH 29.2 MCHC 31.1 L RDW 16.6 H Plt Count 213 MPV 10.2 Absolute Neuts (auto) 19.2 H Total Counted 100 Neutrophils % 92.2 H Neutrophils % (Manual) 94.9 H 82.0 Band Neutrophils % 4.1 8.0 Lymphocytes % 2.0 L D Lymphocytes % (Manual) 0.0 L 4.0 L D Monocytes % 5.7 Monocytes % (Manual) 1 L 6 D Eosinophils % 0.0 D Eosinophils % (Manual) 0.0 Basophils % 0.1 Basophils % (Manual) 0.0 Myelocytes % (Man) 0 Promyelocytes % (Man) 0 Blast Cells % (Manual) 0 Nucleated RBC % 0 Metamyelocytes 0 Differential Comment Man diff performed Hypochromia 0 1+ Platelet Estimate Normal Adequate Platelet Comment Present Polychromasia 0 Poikilocytosis 2+ Anisocytosis 1+ Microcytosis 1+ 1+ Macrocytosis 0 Spherocytes 2+ Tear Drop Cells 1+ PT with INR INR PTT (Actin FS) VBG pH POC VBG pCO2 POC VBG pO2 VBG HCO3 VBG O2 Sat (Ubaldo) VBG Base Excess Sodium 139 Potassium 4.6 Chloride 101 Carbon Dioxide 31 Anion Gap 7 L BUN 39 H Creatinine 1.3 Est GFR (CKD-EPI)AfAm 67.30 Est GFR (CKD-EPI)NonAf 58.07 POC Glucometer Random Glucose 132 H Lactic Acid Calcium 7.7 L Phosphorus Magnesium Total Bilirubin 0.4 AST 21 ALT 18 Alkaline Phosphatase 66 Creatine Kinase Troponin I Total Protein 3.3 L Albumin 1.4 L 01/08/19 01/08/19 01/08/19 14:45 21:45 21:45 WBC 22.4 H RBC 4.33 Hgb 12.8 Hct 41.7 MCV 96.2 H MCH 29.5 MCHC 30.7 L RDW 16.5 H Plt Count 196 MPV 10.4 Absolute Neuts (auto) 20.7 H Total Counted 100 Neutrophils % 92.7 H Neutrophils % (Manual) 88.0 H Band Neutrophils % 6.0 Lymphocytes % 1.1 L D Lymphocytes % (Manual) 1.0 L D Monocytes % 6.1 Monocytes % (Manual) 5 Eosinophils % 0.0 Eosinophils % (Manual) Basophils % 0.1 Basophils % (Manual) Myelocytes % (Man) Promyelocytes % (Man) Blast Cells % (Manual) Nucleated RBC % 0 Metamyelocytes Differential Comment Man diff performed Hypochromia 1+ Platelet Estimate Adequate Platelet Comment Polychromasia Poikilocytosis Anisocytosis 1+ Microcytosis 1+ Macrocytosis Spherocytes Tear Drop Cells PT with INR INR PTT (Actin FS) VBG pH POC VBG pCO2 POC VBG pO2 VBG HCO3 VBG O2 Sat (Ubaldo) VBG Base Excess Sodium 138 Potassium 5.8 H Chloride 104 Carbon Dioxide 28 Anion Gap 7 L BUN 42 H Creatinine 1.8 H Est GFR (CKD-EPI)AfAm 45.41 Est GFR (CKD-EPI)NonAf 39.18 POC Glucometer Random Glucose 188 H Lactic Acid Calcium 7.6 L Phosphorus Magnesium Total Bilirubin AST ALT Alkaline Phosphatase Creatine Kinase 46 Troponin I 0.06 H Total Protein Albumin 01/08/19 01/08/19 01/08/19 22:50 22:50 22:50 WBC RBC Hgb Hct MCV MCH MCHC RDW Plt Count MPV Absolute Neuts (auto) Total Counted Neutrophils % Neutrophils % (Manual) Band Neutrophils % Lymphocytes % Lymphocytes % (Manual) Monocytes % Monocytes % (Manual) Eosinophils % Eosinophils % (Manual) Basophils % Basophils % (Manual) Myelocytes % (Man) Promyelocytes % (Man) Blast Cells % (Manual) Nucleated RBC % Metamyelocytes Differential Comment Hypochromia Platelet Estimate Platelet Comment Polychromasia Poikilocytosis Anisocytosis Microcytosis Macrocytosis Spherocytes Tear Drop Cells PT with INR INR PTT (Actin FS) VBG pH POC VBG pCO2 POC VBG pO2 VBG HCO3 VBG O2 Sat (Ubaldo) VBG Base Excess Sodium 136 Potassium 6.2 H* Chloride 103 Carbon Dioxide 25 Anion Gap 8 BUN 43 H Creatinine 1.8 H Est GFR (CKD-EPI)AfAm 45.41 Est GFR (CKD-EPI)NonAf 39.18 POC Glucometer Random Glucose 170 H Lactic Acid 4.8 H* Calcium 7.4 L Phosphorus > 9.0 H* Magnesium 2.3 Total Bilirubin 1.0 AST 109 H ALT 58 Alkaline Phosphatase 64 Creatine Kinase Troponin I 1.53 H* Total Protein 3.1 L Albumin 1.3 L 01/09/19 01/09/19 01/09/19 01:12 02:30 02:30 WBC RBC Hgb Hct MCV MCH MCHC RDW Plt Count MPV Absolute Neuts (auto) Total Counted Neutrophils % Neutrophils % (Manual) Band Neutrophils % Lymphocytes % Lymphocytes % (Manual) Monocytes % Monocytes % (Manual) Eosinophils % Eosinophils % (Manual) Basophils % Basophils % (Manual) Myelocytes % (Man) Promyelocytes % (Man) Blast Cells % (Manual) Nucleated RBC % Metamyelocytes Differential Comment Hypochromia Platelet Estimate Platelet Comment Polychromasia Poikilocytosis Anisocytosis Microcytosis Macrocytosis Spherocytes Tear Drop Cells PT with INR INR PTT (Actin FS) VBG pH POC VBG pCO2 POC VBG pO2 VBG HCO3 VBG O2 Sat (Ubaldo) VBG Base Excess Sodium 140 Potassium 5.0 Chloride 106 Carbon Dioxide 25 Anion Gap 8 BUN 43 H Creatinine 2.0 H Est GFR (CKD-EPI)AfAm 39.98 Est GFR (CKD-EPI)NonAf 34.49 POC Glucometer 199 Random Glucose 198 H Lactic Acid 4.3 H* Calcium 6.6 L* Phosphorus 9.0 H* Magnesium Total Bilirubin 0.8 AST 1339 H ALT 739 H Alkaline Phosphatase 65 Creatine Kinase Troponin I Total Protein 2.6 L Albumin 1.1 L 01/09/19 01/09/19 01/09/19 05:17 05:30 05:30 WBC 21.3 H RBC 3.57 L Hgb 10.7 L Hct 35.1 L D MCV 98.3 H MCH 29.9 MCHC 30.4 L RDW 16.7 H Plt Count 156 D MPV 10.4 Absolute Neuts (auto) 19.5 H Total Counted Neutrophils % 91.7 H Neutrophils % (Manual) 89.5 H Band Neutrophils % 0.0 Lymphocytes % 1.2 L Lymphocytes % (Manual) 1.6 L D Monocytes % 7.1 Monocytes % (Manual) 7 Eosinophils % 0.0 Eosinophils % (Manual) 0.0 Basophils % 0.0 Basophils % (Manual) 0.0 Myelocytes % (Man) 1 D Promyelocytes % (Man) 0 Blast Cells % (Manual) 0 Nucleated RBC % 0 Metamyelocytes 1 D Differential Comment Hypochromia 0 Platelet Estimate Normal Platelet Comment Polychromasia 0 Poikilocytosis 0 Anisocytosis 0 Microcytosis 0 Macrocytosis 0 Spherocytes Tear Drop Cells PT with INR INR PTT (Actin FS) 32.5 VBG pH POC VBG pCO2 POC VBG pO2 VBG HCO3 VBG O2 Sat (Ubaldo) VBG Base Excess Sodium Potassium Chloride Carbon Dioxide Anion Gap BUN Creatinine Est GFR (CKD-EPI)AfAm Est GFR (CKD-EPI)NonAf POC Glucometer 170 Random Glucose Lactic Acid Calcium Phosphorus Magnesium Total Bilirubin AST ALT Alkaline Phosphatase Creatine Kinase Troponin I Total Protein Albumin 01/09/19 01/09/19 01/09/19 05:30 05:30 09:13 WBC RBC Hgb Hct MCV MCH MCHC RDW Plt Count MPV Absolute Neuts (auto) Total Counted Neutrophils % Neutrophils % (Manual) Band Neutrophils % Lymphocytes % Lymphocytes % (Manual) Monocytes % Monocytes % (Manual) Eosinophils % Eosinophils % (Manual) Basophils % Basophils % (Manual) Myelocytes % (Man) Promyelocytes % (Man) Blast Cells % (Manual) Nucleated RBC % Metamyelocytes Differential Comment Hypochromia Platelet Estimate Platelet Comment Polychromasia Poikilocytosis Anisocytosis Microcytosis Macrocytosis Spherocytes Tear Drop Cells PT with INR INR PTT (Actin FS) VBG pH 6.86 L* POC VBG pCO2 104 H* POC VBG pO2 37.6 VBG HCO3 17.5 L VBG O2 Sat (Ubaldo) 55.3 L VBG Base Excess -18.2 L Sodium 139 Potassium 5.5 H Chloride 107 Carbon Dioxide 23 Anion Gap 9 BUN 42 H Creatinine 2.0 H Est GFR (CKD-EPI)AfAm 39.98 Est GFR (CKD-EPI)NonAf 34.49 POC Glucometer Random Glucose 183 H Lactic Acid 4.5 H* Calcium 7.2 L Phosphorus 9.8 H* Magnesium 1.9 Total Bilirubin 0.9 AST > 2002 H ALT 1492 H Alkaline Phosphatase 68 Creatine Kinase Troponin I 11.90 H* Total Protein 2.5 L Albumin 1.0 L 01/09/19 09:38 WBC RBC Hgb Hct MCV MCH MCHC RDW Plt Count MPV Absolute Neuts (auto) Total Counted Neutrophils % Neutrophils % (Manual) Band Neutrophils % Lymphocytes % Lymphocytes % (Manual) Monocytes % Monocytes % (Manual) Eosinophils % Eosinophils % (Manual) Basophils % Basophils % (Manual) Myelocytes % (Man) Promyelocytes % (Man) Blast Cells % (Manual) Nucleated RBC % Metamyelocytes Differential Comment Hypochromia Platelet Estimate Platelet Comment Polychromasia Poikilocytosis Anisocytosis Microcytosis Macrocytosis Spherocytes Tear Drop Cells PT with INR 19.60 H INR 1.65 H PTT (Actin FS) VBG pH POC VBG pCO2 POC VBG pO2 VBG HCO3 VBG O2 Sat (Ubaldo) VBG Base Excess Sodium Potassium Chloride Carbon Dioxide Anion Gap BUN Creatinine Est GFR (CKD-EPI)AfAm Est GFR (CKD-EPI)NonAf POC Glucometer Random Glucose Lactic Acid Calcium Phosphorus Magnesium Total Bilirubin AST ALT Alkaline Phosphatase Creatine Kinase Troponin I Total Protein Albumin Active Medications Generic Name Dose Route Start Last Admin Trade Name Pierreq PRN Reason Stop Dose Admin Chlorhexidine Gluconate 1 applic 01/08/19 22:00 01/08/19 23:26 Hibiclens For Decolonization - TP 1 applic HS DOMINIC Administration Morphine Sulfate 100 mg/ 100 mls @ 1 mls/hr 01/09/19 11:30 Sodium Chloride IVPB TITR DOMINIC Protocol 1 MG/HR Morphine Sulfate 4 mg 01/08/19 00:35 01/08/19 05:14 Morphine Injection - IVPUSH 4 mg Q4H PRN Administration PAIN LEVEL 6-10 Mupirocin 1 applic 01/08/19 10:00 01/08/19 23:26 Bactroban Ointment (For Decolonization) - NS 01/13/19 09:59 1 applic BID DOMINIC Administration ASSESSMENT/PLAN: 63 yo M with PMH of Aortic PAD s/p aorta[place]femoral [place] [address] Cunningham, pulmonary HTN, HFpEF, afib on xarelto, CAD with mild inferior ischemia on stress test in 2017, COPD w/ multiple exacerbations last discharge 01/05/2019 currently on prednisone taper 30 mg daily, HTN, DM, and HLD admitted to the ICU for pneumoperitonium likely 2/2 perforated viscus. patient was made DNR this overnight; then came in and was informed of prognosis- she made him comfort care; patient was extuabted taken off all pressors and asystole was seen on the monitor at 12:02 Problem List - Problems (1) Pneumoperitoneum Code(s): K66.8 - OTHER SPECIFIED DISORDERS OF PERITONEUM (2) Acute on chronic diastolic CHF (congestive heart failure) Code(s): I50.33 - ACUTE ON CHRONIC DIASTOLIC (CONGESTIVE) HEART FAILURE (3) Atrial fibrillation with rapid ventricular response Code(s): I48.91 - UNSPECIFIED ATRIAL FIBRILLATION Visit type - Emergency Visit Emergency Visit: Yes ED Registration Date: 01/08/19 Care time: The patient presented to the Emergency Department on the above date and was hospitalized for further evaluation of their emergent condition. - New Patient This patient is new to me today: Yes Date on this admission: 01/09/19 - Critical Care Critical Care patient: Yes Total Critical Care Time (in minutes): 35 Critical Care Statement: The care of this patient involved high complexity decision making to prevent further life threatening deterioration of the patient 's condition and/or to evaluate & treat vital organ system(s) failure or risk of failure. - Discharge Referral Referred to [facility] Med P.C.: No
--- NOTE | 2019-01-09 13:31 | PN ---
Progress Note (short form) - Note Progress Note: Was notified that the patient showed asystole on the monitor. Patient confirmed DNR w/ signed paperwork in the chart. On exam, the patient was unresponsive to verbal, tactile and noxious stimuli. Pupils were fixed and dilated. Carotid, femoral and radial pulses could not be palpated. No heart sounds could be auscultated. Patient was pronounced at 12:02pm. Primary team notified. Family notified at bedside.
--- NOTE | 2019-01-10 08:36 | OP ---
DATE OF OPERATION: 01/08/2019 PREOPERATIVE DIAGNOSIS: Perforated viscus. POSTOPERATIVE DIAGNOSIS: Perforated viscus secondary to perforated sigmoid colon. PROCEDURE: Spenser procedure (sigmoid colon resection with end colostomy). SURGEON: Ozzie Thapa MD CELLOPHANE BAG MACHINE OPERATOR: Renetta Parker PA-C ANESTHESIA: General. OPERATIVE FINDINGS: There was gross fecal peritonitis in the pelvis secondary to an isolated perforation of the sigmoid colon. There was marked inflammation of the mid and proximal ileum, which made up a cavity next to the perforation of the sigmoid. There was evidence of previous abdominal surgery from a previous aortobifemoral bypass. The rest of the findings were unremarkable. DESCRIPTION OF PROCEDURE: The patient was placed on the operating table in supine position, and after the induction of general anesthesia, the patients abdomen was prepped with ChloraPrep and draped in sterile fashion. A time-out was taken, and the peritoneal cavity was entered through the previous abdominal scar from just below the xiphoid to the symphysis pubis. Once the peritoneal cavity was entered adhesions were taken down using a combination of blunt and sharp dissection. Exploration revealed the previous findings, and the contaminated area in the pelvis contained seropurulent fecal fluid, which was sent for culture and sensitivity. Next, an area of the rectosigmoid distal to the perforation was identified, and a window made in the mesentery/ mesorectum. A TA 90 stapling device was placed through this window and fired, and 2 Luiz clamps placed proximally, and the colon divided. Next, the mesentery was serially divided using the LigaSure device. The more proximal sigmoid colon was mobilized laterally along the lateral peritoneal reflection using a combination of blunt and sharp dissection. A location proximal to the perforation was identified, and again, a window created in the mesentery, and a again the TA 90 stapling device was used to divide the colon. The proximal colon was stapled closed as well prior to dividing it with a scalpel. The remaining mesentery was divided using the LigaSure device, and then, the specimen was passed off the operative field and sent for pathological examination. The distal rectal stump was tagged with 2-0 Prolene sutures for future identification. Copious irrigation was carried out with normal saline, and then , an opening in the abdominal wall was created midway between the umbilicus and left anterior-superior iliac spine by excising a disc of skin and creating an opening in the abdominal wall for the stoma. This opening was made 2 fingerbreadths in diameter. The left colon was further mobilized laterally using electrocautery up to just below the splenic flexure. The colon was then brought through the abdominal wall without any tension. Again, copious irrigation was carried out until the return was clear, and then, two 10-mm Fernando-Cox drains were placed through separate stab wounds on either side of the lower midline incision and placed in the pelvis. The drains were secured to the skin with 2-0 silk sutures. Next, the peritoneal cavity was closed using continuous No. 1 looped Maxon starting proximally and distally and meeting in the middle just above the umbilicus. In addition to this, No. 1 Prolene retention sutures were placed, which were tied over Xeroform buttresses on the abdominal wall. The skin around the umbilicus was reapproximated using surgical ana after the wound was copiously irrigated with sterile saline, and then, the wound was packed 1 inch Iodoform gauze. The wound was covered with a sterile towel, and then, the colostomy matured by excising the previous suture line and suturing the colostomy to the skin with interrupted 3-0 Vicryl sutures. A colostomy flange and bag were placed, and then, the midline wound dressed with dry sterile dressings. The drain sites were dressed with Biopatches and dry sterile dressings, and the drains connected to bulb self-suction. The procedure was terminated at this point, and the patient transferred intubated back to the intensive care unit in guarded condition. ESTIMATED BLOOD LOSS: 250 mL. REPLACEMENTS: Crystalloid. DRAINS: Two 10-mm Fernando-Cox drains. SPECIMENS: Sigmoid colon to Pathology and cultures of peritoneal fluid to Microbiology. I, Ozzie Thapa, was physically present in the operating room from the time the patient was placed on the operating table until he was transferred to the medical intensive care unit in guarded condition intubated. MD TAMI Loredo/[id number] MTDD
--- NOTE | 2019-01-11 12:47 | PATH ---
Surgical Pathology Report Patient Name: MIKE MARCOS [facility]. Rec. 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 Specimen(s) Received SIGMOID COLON Clinical History Perforated viscus Final Diagnosis SIGMOID COLON, RESECTION: SEGMENT OF COLON SHOWING NECROSIS WITH PERFORATION, MARKED SUBMUCOSAL EDEMA, VASCULAR CONGESTION AND HEMORRHAGE, SEVERE TRANSMURAL ACUTE AND CHRONIC INFLAMMATION AND ABSCESS FORMATION. SEVERE ACUTE PERITONITIS. VARYING DEGREES OF MUCOSAL NECROSIS, SUBMUCOSAL EDEMA WITH ACUTE INFLAMMATION EXTENDING TO SURGICAL MARGINS. Comment: The differential diagnosis includes ischemic colitis and infectious colitis etiology. Clinical correlation is recommended. Electronically Signed Valentino Felipe M.D. Gross Description Specimen received in formalin labeled "sigmoid colon" and consists of segment of colon measures 24cm in length and 10cm in average circumference. The serosal surface reveals focal dark brown necrosis and white exudate, with foci (3) transmural perforation. The distance from perforated area to the closest margin is 5 cm. The foci of perforation averaged measuring 1 cm in greatest dimension. On opening, the colon reveals varying degrees of necrosis, from less severe area with edematous folds to dark brown discoloration mucosa. No masses or polyp are present. No diverticula present. Tree Faller sections are submitted in 7 cassettes. 1: one margin of resection (5cm to perforation); 2: other margin of resection; 3 to 4: Perforated area; 5,6 necrotic areas; 7: edematous area [email or web address]/01/09/2019 [email or web address]/01/09/2019
== END 2019-01-09 14:14 | disposition expired | DRG 221 ==
LOC: JER 18:07 → JERBED 01-08 00:37 → JICU 01-08 03:18
PROVIDERS: ADMIT Internal Medicine; ATTEND Internal Medicine
PROC: 0D1N0Z4 Bypass Sigmoid Colon to Cutaneous, Open Approach (ICD-10-PCS; 2019-01-08)
PROC: 0DTN0ZZ Resection of Sigmoid Colon, Open Approach (ICD-10-PCS; principal; 2019-01-08 09:00)
DX: K63.1 Perforation of intestine (nontraumatic) (principal); A41.9 Sepsis, unspecified organism; K72.00 Acute and subacute hepatic failure without coma; N17.9 Acute kidney failure, unspecified; K56.699 Other intestinal obstruction unspecified as to partial versus complete obstruction; E87.4 Mixed disorder of acid-base balance; I50.33 Acute on chronic diastolic (congestive) heart failure; J44.1 Chronic obstructive pulmonary disease with (acute) exacerbation; Z99.81 Dependence on supplemental oxygen; I48.0 Paroxysmal atrial fibrillation; E83.39 Other disorders of phosphorus metabolism; E87.5 Hyperkalemia; I24.8 Other forms of acute ischemic heart disease; E88.09 Other disorders of plasma-protein metabolism, not elsewhere classified; K66.8 Other specified disorders of peritoneum; I27.20 Pulmonary hypertension, unspecified; F11.20 Opioid dependence, uncomplicated; I11.0 Hypertensive heart disease with heart failure; K57.30 Diverticulosis of large intestine without perforation or abscess without bleeding; E11.51 Type 2 diabetes mellitus with diabetic peripheral angiopathy without gangrene; Z79.01 Long term (current) use of anticoagulants; I25.10 Atherosclerotic heart disease of native coronary artery without angina pectoris; J44.9 Chronic obstructive pulmonary disease, unspecified; Z79.84 Long term (current) use of oral hypoglycemic drugs; Z88.0 Allergy status to penicillin; R65.20 Severe sepsis without septic shock; Z51.5 Encounter for palliative care; Z66 Do not resuscitate; T81.19XA Other postprocedural shock, initial encounter
CPT/HCPCS: 31500; 36415; 36600; 70450-TC; 71045-TC-FY; 74176-TC; 76775-TC; 80048; 80053; 81003; 82550; 82803; 82962; 83605; 83735; 83880; 84100; 84484; 85025; 85610; 85730; 86850; 86900; 86901; 87040; 87070; 87075; 87086; 87186; 87205; 88307-TC; 93005; 93010; 93970-TC; 94002; 94640; 94660; 99285-25; J7030